=== PATIENT | female | born 1930 | race Caucasian/White ===

== ENCOUNTER 2017-03-30 16:49 | Emergency (ER) | payer MEDICARE, BC ==
[2017-03-30 18:08] VITALS: BP 116/55
--- NOTE | 2017-03-30 18:59 | EDM.PDOC ---
ED HPI GENERAL MEDICAL PROBLEM - General Chief Complaint: Lower Extremity Injury/Pain Stated Complaint: ANKLE GAVE OUT HURT FOOT Time Seen by Provider: 03/30/17 18:35 Source of Information: Reports: Patient History Limitations: Reports: No Limitations - History of Present Illness INITIAL COMMENTS - FREE TEXT/NARRATIVE: Rhona presents today with complaints of right foot pain. She states she was walking down some steps, thought she was stepping down onto another step and she was not. Her foot twisted and she fell. Onset: Today, Sudden - Related Data Allergies Allergy/AdvReac Type Severity Reaction Status Date / Time colesevelam HCl Allergy Muscle Verified 09/23/13 09:04 [From WelChol] Aches niacin Allergy Burning Verified 03/16/13 08:57 simvastatin AdvReac Muscle Verified 03/16/13 07:04 Aches Home Meds: Home Meds Aspirin 81 mg ORAL.INH DAILY 02/15/13 [History] Furosemide [Lasix] 40 mg PO DAILY 02/15/13 [History] Gabapentin [Neurontin] 600 mg PO TID 02/15/13 [History] Insulin Detemir [Levemir] 26 unit SUBCUT DAILY 02/15/13 [History] Psyllium Husk [Psyllium Fiber] 1 tab 02/15/13 [History] metFORMIN [Glucophage] 500 mg PO TIDM 02/15/13 [History] Fluticasone Propionate [Flovent HFA 44 mcg] 10.6 gm IH 03/13/13 [History] Zolpidem [Ambien CR] 6.25 mg PO BEDTIME PRN 03/13/13 [History] Ezetimibe [Zetia] 10 mg PO DAILY 03/16/13 [History] Insulin Aspart [NovoLOG] 09/23/13 [History] Past Medical History - Past Health History Medical/Surgical History: Denies Medical/Surgical History HEENT History: Reports: Cataract Endocrine/Metabolic History: Reports: Diabetes, Type II - Past Surgical History GI Surgical History: Reports: Appendectomy, Cholecystectomy Social & Family History - Tobacco Use Smoking Status *Q: Never Smoker Years of Tobacco use: 50 Used Tobacco, but Quit: Yes Month Tobacco Last Used: 22 YEARS AGO Second Hand Smoke Exposure: No - Alcohol Use Days Per Week of Alcohol Use: 0 Number of Drinks Per Day: 0 Total Drinks Per Week: 0 - Recreational Drug Use Recreational Drug Use: No - Living Situation & Occupation Living situation: Reports: , Alone Review of Systems - Review of Systems Review Of Systems: See Below Constitutional: Reports: No Symptoms Eyes: Reports: No Symptoms Ears: Reports: No Symptoms Nose: Reports: No Symptoms Mouth/Throat: Reports: No Symptoms Respiratory: Reports: No Symptoms Cardiovascular: Reports: No Symptoms GI/Abdominal: Reports: No Symptoms Musculoskeletal: Reports: Foot Pain Skin: Reports: Other (bilateral lower leg edema - chronic). Denies: Rash, Erythema, Wound, Lesions Neurological: Denies: Numbness, Syncope, Tingling, Weakness Psychiatric: Reports: No Symptoms ED EXAM, GENERAL - Physical Exam Exam: See Below Free Text/Narrative:: Rhona is an alert, oriented and pleasant 86 year old female who mis-stepped while going down stairs today, twisted her right foot/ankle and has pain. Bilateral lower extremity edema - which is chronic for her. She denies any other injury. Exam Limited By: No Limitations General Appearance: Alert, WD/WN, No Apparent Distress Eye Exam: Bilateral Eye: EOMI, Normal Inspection, PERRL Ears: Normal External Exam, Normal Canal, Hearing Grossly Normal, Normal TMs Ear Exam: Bilateral Ear: Auricle Normal, Canal Normal, TM normal Throat/Mouth: Normal Inspection, Normal Lips, Normal Oropharynx, Normal Voice, No Airway Compromise Head: Atraumatic, Normocephalic Neck: Normal Inspection, Supple, Non-Tender, Full Range of Motion. No: Lymphadenopathy (R), Lymphadenopathy (L) Respiratory/Chest: No Respiratory Distress, Lungs Clear, Normal Breath Sounds, No Accessory Muscle Use, Chest Non-Tender Cardiovascular: Normal Peripheral Pulses, Regular Rate, Rhythm, No Gallop, No Murmur, Other (Bilateral lower extremity edema 1 to 2+) Peripheral Pulses: 2+: Radial (L), Radial (R), Dorsalis Pedis (L), Dorsalis Pedis (R) Back Exam: Normal Inspection, Full Range of Motion. No: CVA Tenderness (R), CVA Tenderness (L) Extremities: Normal Capillary Refill, Other (Pain with palpation to right foot/ lateral. Bilateral lower leg edema 1-2+. No ecchymosis or deformity noted. ) Neurological: Alert, Oriented, CN II-XII Intact, Normal Cognition, Normal Reflexes, No Motor/Sensory Deficits Psychiatric: Normal Affect, Normal Mood Skin Exam: Warm, Dry, Intact, Normal Color, No Rash Course - Vital Signs Last Recorded V/S: Last Vital Signs Temp 36.7 C 03/30/17 18:11 Pulse 98 03/30/17 18:11 Resp 20 03/30/17 18:11 BP 116/55 L 03/30/17 18:11 Pulse Ox 99 03/30/17 18:11 - Orders/Labs/Meds Orders: Active Orders 24 hr Category Date Time Status Foot Comp Min 3V Rt [CR] Stat Exams 03/30/17 18:05 Taken - Radiology Interpretation Free Text/Narrative:: Closed mildly displaced spiral fractures of 4th 5th metatarsals of right foot. - Re-Assessments/Exams Free Text/Narrative Re-Assessment/Exam: 03/30/17 19:00 Patient declines acetaminophen or pain medication. Patient fitted with Cam-walking boot. 03/30/17 19:00 Departure - Departure Time of Disposition: 19:10 Disposition: Home, Self-Care 01 Condition: Fair Clinical Impression: Fracture of metatarsal of right foot, closed - Discharge Information Instructions: Cast or Splint Care, [id number] Referrals: Zully David PA [Primary Care Provider] - Forms: ED Department Discharge Additional Instructions: You have suffered a Closed mildly displaced spiral fractures of 4th 5th metatarsals of right foot. Keep the Cam-walking boot in place and on at all times. Use your walker for ambulation, minimal weight bearing to right foot. Keep your foot elevated as often as possible to decrease pain and swelling. Take acetaminophen as needed for pain, use ice for comfort. Follow up with Orthopedics next week for a recheck. Return for worsening, issues or concerns. - My Orders Last 24 Hours: My Active Orders 03/30/17 18:05 Foot Comp Min 3V Rt [CR] Stat - Assessment/Plan Last 24 Hours: My Active Orders 03/30/17 18:05 Foot Comp Min 3V Rt [CR] Stat Assessment:: Closed mildly displaced spiral fractures of 4th 5th metatarsals of right foot. Keep the Cam-walking boot in place and on at all times. Use walker for ambulation, minimal weight bearing to right foot. Keep foot elevated as often as possible to decrease pain and swelling. Take acetaminophen as needed for pain, use ice for comfort. Follow up with Orthopedics next week for a recheck. Return for worsening, issues or concerns. Plan: You have suffered a Closed mildly displaced spiral fractures of 4th 5th metatarsals of right foot. Keep the Cam-walking boot in place and on at all times. Use your walker for ambulation, minimal weight bearing to right foot. Keep your foot elevated as often as possible to decrease pain and swelling. Take acetaminophen as needed for pain, use ice for comfort. Follow up with Orthopedics next week for a recheck. Return for worsening, issues or concerns.
--- NOTE | 2017-04-01 10:16 | CR ---
Foot Comp Min 3V Rt INDICATION: twisted/pain FINDINGS: Acute, mildly displaced fractures through the mid and distal aspects of the fourth and fift h metatarsals. Mild degenerative changes. Accessory navicular. Accessory ossicle adjacent to the cubo id.
== END 2017-03-30 19:36 | disposition home or self-care (01) ==
LOC: JP.ED 16:49
DX: S92.341A Displaced fracture of fourth metatarsal bone, right foot, initial encounter for closed fracture (principal); S92.351A Displaced fracture of fifth metatarsal bone, right foot, initial encounter for closed fracture; E11.9 Type 2 diabetes mellitus without complications; Z90.49 Acquired absence of other specified parts of digestive tract; Z87.891 Personal history of nicotine dependence; Z79.4 Long term (current) use of insulin; Z79.82 Long term (current) use of aspirin; Z79.899 Other long term (current) drug therapy; Z88.8 Allergy status to other drugs, medicaments and biological substances; W10.8XXA Fall (on) (from) other stairs and steps, initial encounter
CPT/HCPCS: 73630-26-RT; 73630-RT; 99283; 99284

== ENCOUNTER 2019-02-28 23:30 | Emergency (ER) | payer MEDICARE, BC ==
--- NOTE | 2019-02-28 23:59 | EDM.PDOC ---
ED HPI GENERAL MEDICAL PROBLEM - General Chief Complaint: Lower Extremity Injury/Pain Stated Complaint: ROLLED RIGHT ANKLE Time Seen by Provider: 03/01/19 00:08 Source of Information: Reports: Patient, Old Records History Limitations: Reports: No Limitations - History of Present Illness INITIAL COMMENTS - FREE TEXT/NARRATIVE: 88 yo female rolled her R ankle inward about a hour ago. Has pain to the lateral R ankle. Here for evaluation. No tx prior to arrival. Onset: Today Onset Date: 03/01/19 Onset Time: 23:00 Duration: Hour(s): (1), Constant Location: Reports: Lower Extremity, Right Quality: Reports: Ache Severity: Moderate Improves with: Reports: Rest Worsens with: Reports: Movement Context: Reports: Trauma Associated Symptoms: Reports: No Other Symptoms Treatments [employer]TE[employer]CE [employer]: Reports: Other (see below) (none) - Related Data Allergies Allergy/AdvReac Type Severity Reaction Status Date / Time colesevelam HCl Allergy Muscle Verified 09/23/13 09:04 [From WelChol] Aches niacin Allergy Burning Verified 03/16/13 08:57 simvastatin AdvReac Muscle Verified 03/16/13 07:04 Aches Home Meds: Home Meds Aspirin 81 mg ORAL.INH DAILY 02/15/13 [History] Insulin Detemir [Levemir] 26 unit SUBCUT DAILY 02/15/13 [History] Insulin Aspart [NovoLOG] 1 unit SQ DAILY 09/23/13 [History] Allopurinol [Zyloprim] 100 mg PO DAILY 03/01/19 [History] Tamoxifen [Nolvadex] 20 mg PO DAILY 03/01/19 [History] Past Medical History - Past Health History Medical/Surgical History: Denies Medical/Surgical History HEENT History: Reports: Cataract Endocrine/Metabolic History: Reports: Diabetes, Type II - Past Surgical History GI Surgical History: Reports: Appendectomy, Cholecystectomy Social & Family History - Living Situation & Occupation Living situation: Reports: , Alone Review of Systems - Review of Systems Review Of Systems: See Below Constitutional: Reports: No Symptoms Musculoskeletal: Reports: Joint Pain (R lateral ankle), Joint Swelling (R lateral ankle) Skin: Reports: Bruising (R ant/lateral ankle) Neurological: Reports: No Symptoms ED EXAM, GENERAL - Physical Exam Exam: See Below General Appearance: Alert, WD/WN, No Apparent Distress Extremities: Pedal Edema (swelling and bruising R ant/lateral ankle.), Other ( Neg anterior drawer test.). No: Normal Inspection, Non-Tender Neurological: Alert, Oriented, CN II-XII Intact, Normal Cognition, No Motor/ Sensory Deficits Psychiatric: Normal Affect, Normal Mood Skin Exam: Warm, Dry, Intact, No Rash, Ecchymosis (R ant/lateral ankle) Course - Orders/Labs/Meds Orders: Active Orders 24 hr Category Date Time Status Ankle Min 3V Rt [CR] Stat Exams 02/28/19 23:35 Ordered Meds: Medications Discontinued Medications Generic Name Dose Route Start Last Admin Trade Name Freq PRN Reason Stop Dose Admin Hydrocodone Bitart/Acetaminophen 1 tab 03/01/19 00:07 [place] 325-5 Mg PO 03/01/19 00:08 ONETIME ONE Ibuprofen 400 mg 03/01/19 00:07 Motrin PO 03/01/19 00:08 ONETIME ONE - Radiology Interpretation Free Text/Narrative:: ankle [id number] Departure - Departure Time of Disposition: 00:20 Disposition: Home, Self-Care 01 Condition: Fair Clinical Impression: Right ankle sprain Qualifiers: Encounter type: initial encounter Involved ligament of ankle: anterior talofibular ligament Qualified Code(s): S93.491A - Sprain of other ligament of right ankle, initial encounter - Discharge Information *PRESCRIPTION DRUG MONITORING PROGRAM REVIEWED*: No *COPY OF PRESCRIPTION DRUG MONITORING REPORT IN PATIENT CHRISTINE: No Referrals: PCP,None [Primary Care Provider] - Forms: ED Department Discharge Additional Instructions: Elevate and ice to reduce swelling. Take ibuprofen 400 mg every 6 hrs with food. Add either acetaminophen or [place] for added pain relief. Wear some type of splint or boot for support until healed. F/U with your doctor as needed. - My Orders Last 24 Hours: My Active Orders 02/28/19 23:35 Ankle Min 3V Rt [CR] Stat - Assessment/Plan Last 24 Hours: My Active Orders 02/28/19 23:35 Ankle Min 3V Rt [CR] Stat
[2019-03-01] MEDS ORDERED: Ibuprofen 400 MG Tab PO ONE (00:07)
[2019-03-01] MEDS ORDERED: Acetaminophen/HYDROcodone 325-5 MG Tab PO ONE (00:07)
--- NOTE | 2019-03-01 00:20 | CRLCR ---
INDICATION: Trauma TECHNIQUE: Three views right ankle COMPARISON: None FINDINGS: Bones: Alignment is normal. No fractures or bone lesions. Joint spaces: Unremarkable. Soft tissues: Diffuse soft tissue edema. IMPRESSION: Diffuse soft tissue edema. Dictated by Ritchie Pop MD @ 03/01/2019 12:18:27 AM Dictated by: Ritchie Pop MD @ 03/01/2019 00:18:34 (Electronically Signed)
[2019-03-01 00:44] VITALS: BP 127/52; PULSE 93
== END 2019-03-01 00:45 | disposition home or self-care (01) ==
LOC: JP.ED 23:30
DX: S93.491A Sprain of other ligament of right ankle, initial encounter (principal); E11.9 Type 2 diabetes mellitus without complications; Z88.8 Allergy status to other drugs, medicaments and biological substances; Z79.82 Long term (current) use of aspirin; Z79.4 Long term (current) use of insulin; Z90.49 Acquired absence of other specified parts of digestive tract; X50.0XXA Overexertion from strenuous movement or load, initial encounter
CPT/HCPCS: 73610; 99283; A9270

== ENCOUNTER 2020-04-11 15:40 | Inpatient (IN) | payer MEDICARE, BC ==
[2020-04-11] MEDS ORDERED: Sodium Chloride 0.9% 1,000 ML IV SCH ×2 (17:00→20:41)
--- NOTE | 2020-04-11 17:04 | EDM.PDOC ---
ED HPI GENERAL MEDICAL PROBLEM - General Chief Complaint: General Stated Complaint: MEDICAL [facility] Time Seen by Provider: 04/11/20 16:55 Source of Information: Reports: Patient, Family History Limitations: Reports: No Limitations - History of Present Illness INITIAL COMMENTS - FREE TEXT/NARRATIVE: 89-year-old female who thinks she may have been exposed to Covid sometime the last 2 weeks, has had 2 weeks of persistent waxing and waning weakness, dizziness, and diarrhea. She also has some mild shortness of breath, no significant fever or chills. No pain. Today she got up and just felt so weak and dizzy that she was concerned she would not be able to stay home so called the ambulance. She arrived with just slightly normal O2 saturations at 92% on room air. She initially was given 1 L of supplement O2. Covid precautions were taken. Onset: Unknown/Unsure (Symptoms have been waxing and waning for at least 2 weeks) Associated Symptoms: Reports: Malaise, Weakness, Other (Diarrhea, she had 3 episodes of loose stools today) Back Pain Score (Numeric/FACES): 3 - Related Data Allergies Allergy/AdvReac Type Severity Reaction Status Date / Time niacin Allergy Burning Verified 04/11/20 15:43 colesevelam HCl AdvReac Muscle Verified 04/14/20 08:55 [From WelChol] Aches simvastatin AdvReac Muscle Verified 04/11/20 15:43 Aches Home Meds: Home Meds Aspirin 81 mg ORAL.INH DAILY 02/15/13 [History] Insulin Detemir [Levemir] 24 unit SUBCUT BEDTIME 02/15/13 [History] Insulin Aspart [NovoLOG] 12 unit SQ BID 09/23/13 [History] Tamoxifen [Nolvadex] 20 mg PO DAILY 03/01/19 [History] allopurinoL [Zyloprim] 200 mg PO DAILY 03/01/19 [History] Acetaminophen [Tylenol Extra Strength] 500 mg PO Q6H PRN 04/11/20 [History] Gabapentin [Neurontin] 100 mg PO BEDTIME 04/11/20 [History] Mv-Mn/Iron/Folic Acid/Herb 190 [Vitamin D3 Complete Caplet] 1 tab PO DAILY 04/11/20 [History] Past Medical History - Past Health History Medical/Surgical History: Denies Medical/Surgical History HEENT History: Reports: Cataract 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 Denies: Fever, Chills HEENT: Reports: No Symptoms Respiratory: Reports: Shortness of Breath (Mild intermittent shortness of breath with activity) Cardiovascular: Denies: Chest Pain, Palpitations GI/Abdominal: Reports: Diarrhea, Other (Patient has seen no blood in the diarr hea). Denies: Abdominal Pain, Hematochezia, Vomiting : Reports: No Symptoms Skin: Reports: No Symptoms Neurological: Reports: Dizziness, Weakness Psychiatric: Reports: No Symptoms ED EXAM, GENERAL - Physical Exam Exam: See Below Exam Limited By: No Limitations General Appearance: Alert, No Apparent Distress Eye Exam: Bilateral Eye: Normal Inspection Head: Atraumatic Respiratory/Chest: No Respiratory Distress, Other (A few scattered expiratory wheezes are heard diffusely, scattered basilar rales) Cardiovascular: Regular Rate, Rhythm GI/Abdominal: Soft, Non-Tender Extremities: Other (1+ symmetric pitting edema of the lower extremities) Neurological: Alert, Oriented Psychiatric: Normal Affect, Normal Mood Skin Exam: Warm, Dry Course - Vital Signs Last Recorded V/S: Last Vital Signs Temp 97.5 F 04/15/20 02:44 Pulse 72 04/15/20 02:44 Resp 20 04/15/20 02:44 BP 142/67 H 04/15/20 02:44 Pulse Ox 94 L 04/15/20 07:21 - Orders/Labs/Meds Orders: Medication Orders Acetaminophen (Tylenol) 650 mg PO Q4H PRN PRN Reason: Pain (Mild 1-3)/fever Last Admin: 04/13/20 21:25 Dose: 650 mg Documented by: Admin: 04/12/20 21:08 Dose: 650 mg Documented by: NABILAOSTNatali Albuterol (Proventil Neb Soln) 2.5 mg NEB Q4H PRN PRN Reason: Shortness Of Breath/wheezing Allopurinol (Zyloprim) 200 mg PO DAILY [facility] Last Admin: 04/14/20 08:51 Dose: 200 mg Documented by: Admin: 04/13/20 08:03 Dose: 200 mg Documented by: Admin: 04/12/20 09:44 Dose: 200 mg Documented by: ABDIRAHMAN Aspirin (Aspirin) 81 mg PO DAILY [facility] Last Admin: 04/14/20 08:50 Dose: 81 mg Documented by: Admin: 04/13/20 08:03 Dose: 81 mg Documented by: Admin: 04/12/20 09:45 Dose: 81 mg Documented by: ABDIRAHMAN Benzocaine/Menthol (Cepacol Sore Throat) 1 lozenge MUCMEM ASDIRECTED PRN PRN Reason: SORE THROAT Last Admin: 04/12/20 21:30 Dose: 1 lozenge Documented by: MATHEW Dexamethasone (Dexamethasone) 6 mg IVPUSH Q24H [facility] Admin: 04/14/20 19:46 Dose: 6 mg Documented by: Admin: 04/13/20 21:23 Dose: 6 mg Documented by: Admin: 04/12/20 20:59 Dose: 6 mg Documented by: MATHEW Dextrose (Glutose 15) 15 gm PO ONETIME PRN PRN Reason: Hypoglycemia Dextrose/Water (Dextrose 50% In Water) 50 ml IV ONETIME PRN PRN Reason: Hypoglycemia Enoxaparin Sodium (Lovenox) 30 mg SUBCUT BEDTIME [facility] Admin: 04/14/20 21:48 Dose: 30 mg Documented by: Admin: 04/13/20 21:29 Dose: 30 mg Documented by: Admin: 04/12/20 20:59 Dose: 30 mg Documented by: MATHEW Gabapentin (Neurontin) 100 mg PO BEDTIME [facility] Last Admin: 04/14/20 21:48 Dose: 100 mg Documented by: Admin: 04/13/20 21:25 Dose: 100 mg Documented by: Admin: 04/12/20 20:59 Dose: 100 mg Documented by: Admin: 04/11/20 21:39 Dose: 100 mg Documented by: MATHEW Insulin Glargine (Lantus Solostar) 24 units SUBCUT BEDTIME NABILA Last Admin: 04/14/20 21:49 Dose: 24 units Documented by: SIRI Cosigned by: MILLY Admin: 04/13/20 21:26 Dose: 24 units Documented by: RUFUS Cosigned by: MLILY Admin: 04/12/20 21:10 Dose: 24 units Documented by: MATHEW Cosigned by: MIHIR Insulin Human Lispro (Humalog) 0 unit SUBCUT QIDACANDBED NABILA; Protocol Last Admin: 04/14/20 21:49 Dose: 4 units Documented by: SIRI Cosigned by: MILLY Admin: 04/14/20 16:56 Dose: 4 units Documented by: ABDIRAHMAN Cosigned by: SMITHA Admin: 04/14/20 11:58 Dose: 6 units Documented by: ABDIRAHMAN Cosigned by: VIOLA Admin: 04/14/20 08:51 Dose: 4 units Documented by: ABDIRAHMAN Cosigned by: VIOLA Admin: 04/13/20 21:26 Dose: 4 units Documented by: RUFUS Cosigned by: MILLY Admin: 04/13/20 17:03 Dose: 4 units Documented by: ABDIRAHMAN Cosigned by: MARIA E Admin: 04/13/20 12:56 Dose: 6 units Documented by: ABDIRAHMAN Cosigned by: SHELLEY Admin: 04/13/20 08:04 Dose: 4 units Documented by: ABDIRAHMAN Cosigned by: MARIA E Admin: 04/12/20 21:11 Dose: 6 units Documented by: MATHEW Cosigned by: MIHIR Admin: 04/12/20 16:46 Dose: 6 units Documented by: ABDIRAHMAN Cosigned by: AKIN Admin: 04/12/20 11:54 Dose: 8 units Documented by: ABDIRAHMAN Cosigned by: VIOLA Admin: 04/12/20 09:42 Dose: 4 units Documented by: ABDIRAHMAN Cosigned by: TONA Admin: 04/11/20 21:38 Dose: Not Given Documented by: MATHEW Melatonin (Melatonin) 9 mg PO BEDTIME PRN PRN Reason: Insomnia Last Admin: 04/14/20 21:55 Dose: 9 mg Documented by: Admin: 04/13/20 21:25 Dose: 9 mg Documented by: Admin: 04/12/20 23:20 Dose: 9 mg Documented by: MATHEW Ondansetron HCl (Zofran) 4 mg IV Q4H PRN PRN Reason: Nausea/Vomiting Polyethylene Glycol (Miralax) 17 gm PO DAILY PRN PRN Reason: Constipation Sodium Chloride (Saline Flush) 10 ml FLUSH ASDIRECTED PRN PRN Reason: Keep Vein Open Tamoxifen Citrate (Nolvadex) 20 mg PO DAILY NABILA Guo Admin: 04/14/20 08:50 Dose: 20 mg Documented by: Admin: 04/13/20 08:03 Dose: 20 mg Documented by: Admin: 04/12/20 09:45 Dose: 20 mg Documented by: ABDIRAHMAN Labs: Laboratory Tests 04/11/20 04/11/20 04/11/20 Range/Units 16:12 16:12 16:23 WBC 5.5 (4.5-11.0) K/uL RBC 3.65 (3.30-5.50) M/uL Hgb 11.3 L (12.0-15.0) g/dL Hct 36.4 (36.0-48.0) % MCV 100 H (80-98) fL MCH 31 (27-31) pg MCHC 31 L (32-36) % Plt Count 123 L (150-400) K/uL Neut % (Auto) 72 H (36-66) % Lymph % (Auto) 16 L (24-44) % [place] % (Auto) 12 H (2-6) % Eos % (Auto) 0 L (2-4) % Baso % (Auto) 0 (0-1) % Sodium 140 (140-148) mmol/L Potassium 4.6 (3.6-5.2) mmol/L Chloride 109 H (100-108) mmol/L Carbon Dioxide 24 (21-32) mmol/L Anion Gap 11.6 (5.0-14.0) mmol/L BUN 26 H (7-18) mg/dL Creatinine 1.9 H (0.6-1.0) mg/dL Est Cr Clr Drug Dosing 18.79 mL/min Estimated GFR (MDRD) 25 L (>60) Glucose 102 (74-106) mg/dL Calcium 8.3 L (8.5-10.1) mg/dL SARS-CoV-2 RNA (HUMPHREY) (NEGATIVE) Blood Type O POSITIVE 04/11/20 Range/Units 16:31 WBC (4.5-11.0) K/uL RBC (3.30-5.50) M/uL Hgb (12.0-15.0) g/dL Hct (36.0-48.0) % MCV (80-98) fL MCH (27-31) pg MCHC (32-36) % Plt Count (150-400) K/uL Neut % (Auto) (36-66) % Lymph % (Auto) (24-44) % [place] % (Auto) (2-6) % Eos % (Auto) (2-4) % Baso % (Auto) (0-1) % Sodium (140-148) mmol/L Potassium (3.6-5.2) mmol/L Chloride (100-108) mmol/L Carbon Dioxide (21-32) mmol/L Anion Gap (5.0-14.0) mmol/L BUN (7-18) mg/dL Creatinine (0.6-1.0) mg/dL Est Cr Clr Drug Dosing mL/min Estimated GFR (MDRD) (>60) Glucose (74-106) mg/dL Calcium (8.5-10.1) mg/dL SARS-CoV-2 RNA (HUMPHREY) Positive H (NEGATIVE) Blood Type Meds: Medications Generic Name Dose Route Start Last Admin Trade Name Freq PRN Reason Stop Dose Admin Acetaminophen 650 mg 04/11/20 20:41 04/13/20 21:25 Tylenol PO 650 mg Q4H PRN Administration Pain (Mild 1-3)/fever Albuterol 2.5 mg 04/11/20 20:41 Proventil Neb Soln NEB Q4H PRN Shortness Of Breath/wheezing Allopurinol 200 mg 04/12/20 09:00 04/14/20 08:51 Zyloprim PO 200 mg DAILY NABILA Administration Aspirin 81 mg 04/12/20 09:00 04/14/20 08:50 Aspirin PO 81 mg DAILY NABILA Administration Benzocaine/Menthol 1 lozenge 04/12/20 21:29 04/12/20 21:30 Cepacol Sore Throat MUCMEM 1 lozenge ASDIRECTED PRN Administration SORE THROAT Dexamethasone 6 mg 04/12/20 19:00 04/14/20 19:46 Dexamethasone IVPUSH 6 mg Q24H NABILA Administration Dextrose 15 gm 04/11/20 20:41 Glutose 15 PO ONETIME PRN Hypoglycemia Dextrose/Water 50 ml 04/11/20 20:41 Dextrose 50% In Water IV ONETIME PRN Hypoglycemia Enoxaparin Sodium 30 mg 04/12/20 21:00 04/14/20 21:48 Lovenox SUBCUT 30 mg BEDTIME NABILA Administration Gabapentin 100 mg 04/11/20 21:00 04/14/20 21:48 Neurontin PO 100 mg BEDTIME NABILA Administration Insulin Glargine 24 units 04/12/20 21:00 04/14/20 21:49 Lantus Solostar SUBCUT 24 units BEDTIME NABILA Administration Insulin Human Lispro 0 unit 04/11/20 20:41 04/14/20 21:49 Humalog SUBCUT 4 units QIDACANDBED NABILA Administration Protocol Melatonin 9 mg 04/12/20 23:06 04/14/20 21:55 Melatonin PO 9 mg BEDTIME PRN Administration Insomnia Ondansetron HCl 4 mg 04/11/20 20:41 Zofran IV Q4H PRN Nausea/Vomiting Polyethylene Glycol 17 gm 04/11/20 20:41 Miralax PO DAILY PRN Constipation Sodium Chloride 10 ml 04/11/20 20:41 Saline Flush FLUSH ASDIRECTED PRN Keep Vein Open Tamoxifen Citrate 20 mg 04/12/20 09:00 04/14/20 08:50 Nolvadex PO 20 mg DAILY NABILA Administration Discontinued Medications Generic Name Dose Route Start Last Admin Trade Name Freq PRN Reason Stop Dose Admin Acetaminophen 650 mg 04/13/20 16:30 04/13/20 17:02 Tylenol PO 04/13/20 16:31 650 mg ONCALL ONE Administration Acetaminophen 650 mg 04/14/20 14:30 04/14/20 15:56 Tylenol PO 04/14/20 14:31 650 mg ONCALL ONE Administration Benzocaine/Menthol 1 lozenge 04/13/20 09:00 Cepacol Sore Throat MUCMEM ASDIRECTED PRN SORE THROAT Benzocaine/Menthol Confirm 04/12/20 21:31 04/12/20 22:57 Cepacol Sore Throat Administered 04/12/20 21:32 Not Given Dose 1 lozenge .ROUTE .STK-MED ONE Dexamethasone 6 mg 04/11/20 17:49 04/11/20 18:08 Dexamethasone IVPUSH 04/11/20 17:50 6 mg ONETIME ONE Administration Dexamethasone Confirm 04/11/20 18:00 04/11/20 18:11 Dexamethasone Administered 04/11/20 18:01 Not Given Dose 4 mg .ROUTE .STK-MED ONE Diphenhydramine HCl 25 mg 04/13/20 16:30 04/13/20 17:02 Benadryl IVPUSH 04/13/20 16:31 25 mg ONCALL ONE Administration Diphenhydramine HCl 25 mg 04/14/20 14:30 04/14/20 15:56 Benadryl IVPUSH 04/14/20 14:31 25 mg ONCALL ONE Administration Enoxaparin Sodium 30 mg 04/11/20 20:41 04/11/20 21:39 Lovenox SUBCUT 30 mg DAILY NABILA Administration Sodium Chloride 1,000 mls @ 1,000 mls/hr 04/11/20 17:00 04/11/20 17:14 Normal Saline IV 1,000 mls/hr ASDIRECTED NABILA Administration Sodium Chloride 1,000 mls @ 50 mls/hr 04/11/20 20:41 04/11/20 22:32 Normal Saline IV 50 mls/hr ASDIRECTED NABILA Administration Sodium Chloride 250 mls @ 20 mls/hr 04/13/20 16:15 04/13/20 17:55 Normal Saline IV 20 mls/hr ASDIRECTED NABILA Administration Insulin Glargine 26 units 04/11/20 21:00 04/11/20 23:35 Lantus Solostar SUBCUT Not Given BEDTIME NABILA Insulin Glargine 24 units 04/11/20 21:15 04/11/20 22:33 Lantus Solostar SUBCUT 24 units BEDTIME NABILA Administration - Re-Assessments/Exams Free Text/Narrative Re-Assessment/Exam: 04/11/20 17:34 A chest x-ray was obtained which showed no significant infiltrates or effusions. CBC BMP and Covid testing was obtained. She was continued on 0.5 L of O2 by nasal cannula which kept her in the mid 90s for O2 saturations. 04/11/20 17:34 White count is normal, hemoglobin 11.3 04/11/20 17:34 Creatinine 1.9, GFR only 25. This was initially concerning but they were consistent with levels checked at the clinic almost a year ago. 1 L of IV normal saline was initiated and the Covid test returned positive. We are checking to see if we can find an inpatient Covid bed for her to treat her for weakness, dyspnea, and dehydration. 04/11/20 17:49 She will be admitted here, after talking with the hospitalist service 6 mg of IV Decadron was given. Departure - Departure Time of Disposition: 18:40 Disposition: Admitted As Inpatient 66 Clinical Impression: COVID-19, Weakness Diarrhea Qualifiers: Diarrhea type: presumed infectious Qualified Code(s): R19.7 - Diarrhea, unsp ecified - Discharge Information Sepsis Event Note (ED) - Evaluation Sepsis Screening Result: No Definite Risk
[2020-04-11] MEDS ORDERED: Dexamethasone 4 MG/ML SDV IVPUSH ONE (17:49)
[2020-04-11] MEDS ORDERED: Dexamethasone 4 MG/ML SDV ONE (18:00)
--- NOTE | 2020-04-11 19:00 | PCM.HP.2 ---
H&P History of Present Illness - General Date of Service: 04/11/20 Admit Problem/Dx: Admission Diagnosis/Problem Admission Diagnosis/Problem Dyspnea Source of Information: Patient, Provider, RN Notes Reviewed History Limitations: Reports: No Limitations - History of Present Illness Initial Comments - Free Text/Narative: Ms. Barnett is an 89-year-old woman who was admitted through the emergency department with severe weakness, shortness of breath, cough, diarrhea, and nausea, secondary to COVID-19. She has not felt well over the past 10 days and does think that she has a recent exposure to COVID-19. Over the past few days symptoms have become much worse and she has been extremely weak and developed shortness of breath with minimal exertion. She was brought into the emergency department for further evaluation. Chest x-ray shows evidence of hazy bilateral infiltrates. White blood cell count is within normal ranges and COVID-19 testing is positive. She is found to be mildly hypoxic on room air on initial presentation. She has received 1 dose of IV Decadron while in the emergency department. - Related Data Allergies/Adverse Reactions: Allergies Allergy/AdvReac Type Severity Reaction Status Date / Time colesevelam HCl Allergy Muscle Verified 04/11/20 15:43 [From WelChol] Aches niacin Allergy Burning Verified 04/11/20 15:43 simvastatin AdvReac Muscle Verified 04/11/20 15:43 Aches Home Medications: Home Meds Aspirin 81 mg ORAL.INH DAILY 02/15/13 [History] Insulin Detemir [Levemir] 26 unit SUBCUT BEDTIME 02/15/13 [History] Insulin Aspart [NovoLOG] 12 unit SQ BID 09/23/13 [History] Tamoxifen [Nolvadex] 20 mg PO DAILY 03/01/19 [History] allopurinoL [Zyloprim] 200 mg PO DAILY 03/01/19 [History] Acetaminophen [Tylenol Extra Strength] 500 mg PO Q6H PRN 04/11/20 [History] Gabapentin [Neurontin] 100 mg PO BEDTIME 04/11/20 [History] Mv-Mn/Iron/Folic Acid/Herb 190 [Vitamin D3 Complete Caplet] 1 tab PO DAILY 04/11/20 [History] Past Medical History - Past Health History Medical/Surgical History: Denies Medical/Surgical History HEENT History: Reports: Cataract 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: Endocrine/Metabolic History: Reports: Diabetes, Type II - Past Surgical History GI Surgical History: Reports: Appendectomy, Cholecystectomy Social & Family History - Tobacco Use Tobacco Use Status *Q: Former Tobacco User Used Tobacco, but Quit: Yes Month/Year Tobacco Last Used: 28 - Caffeine Use Caffeine Use: Reports: Coffee - Living Situation & Occupation Living situation: Reports: , Alone H&P Review of Systems - Review of Systems: Review Of Systems: See Below General: Reports: Fever, Chills, Malaise, Weakness, Decreased Appetite HEENT: Reports: No Symptoms Pulmonary: Reports: Shortness of Breath, Cough. Denies: Wheezing, Pleuritic Chest Pain, Sputum, Hemoptysis Cardiovascular: Reports: Dyspnea on Exertion. Denies: Chest Pain, Palpitations, Orthopnea, PND, Edema, Lightheadedness Gastrointestinal: Reports: No Symptoms Genitourinary: Reports: No Symptoms Musculoskeletal: Reports: Muscle Pain Skin: Reports: No Symptoms Psychiatric: Reports: No Symptoms Neurological: Reports: No Symptoms Hematologic/Lymphatic: Reports: No Symptoms Immunologic: Reports: No Symptoms Exam - Exam Exam: See Below - Vital Signs Vital Signs: Last Vital Signs Temp 98.9 F 04/11/20 15:42 Pulse 81 04/11/20 18:00 Resp 20 04/11/20 15:42 BP 143/59 H 04/11/20 18:00 Pulse Ox 94 L 04/11/20 18:00 Weight: 172 lb - Exam Quality Assessment: Supplemental Oxygen, DVT Prophylaxis General: Alert, Oriented, Cooperative, Moderate Distress HEENT: Conjunctiva Clear, Hearing Intact, Normal Nasal Septum, Posterior Pharynx Clear, Pupils Equal. No: Mucosa Moist & [place] Neck: Supple, Trachea Midline, +2 Carotid Pulse wo Bruit Lungs: Clear to Auscultation, Rales. No: Crackles, Rhonchi, Wheezing Cardiovascular: Regular Rate, Regular Rhythm, Normal S1, Normal S2 GI/Abdominal Exam: Soft, Non-Tender, No Organomegaly, No Distention Extremities: Non-Tender, No Pedal Edema Skin: Warm, Dry, Intact Neurological: Cranial Nerves Intact, Strength Equal Bilateral, Normal Speech, Normal Tone, Sensation Intact. No: Focal Deficit Neuro Extensive - Mental Status: Alert, Oriented x3, Normal Mood/Affect, Normal Cognition, Memory Intact - Patient Data Lab Results Last 24 hrs: Laboratory Results - last 24 hr 04/11/20 04/11/20 04/11/20 Range/Units 16:12 16:12 16:31 WBC 5.5 (4.5-11.0) K/uL RBC 3.65 (3.30-5.50) M/uL Hgb 11.3 L (12.0-15.0) g/dL Hct 36.4 (36.0-48.0) % MCV 100 H (80-98) fL MCH 31 (27-31) pg MCHC 31 L (32-36) % Plt Count 123 L (150-400) K/uL Neut % (Auto) 72 H (36-66) % Lymph % (Auto) 16 L (24-44) % [place] % (Auto) 12 H (2-6) % Eos % (Auto) 0 L (2-4) % Baso % (Auto) 0 (0-1) % Sodium 140 (140-148) mmol/L Potassium 4.6 (3.6-5.2) mmol/L Chloride 109 H (100-108) mmol/L Carbon Dioxide 24 (21-32) mmol/L Anion Gap 11.6 (5.0-14.0) mmol/L BUN 26 H (7-18) mg/dL Creatinine 1.9 H (0.6-1.0) mg/dL Est Cr Clr Drug Dosing 18.79 mL/min Estimated GFR (MDRD) 25 L (>60) Glucose 102 (74-106) mg/dL Calcium 8.3 L (8.5-10.1) mg/dL SARS-CoV-2 RNA (HUMPHREY) Positive H (NEGATIVE) Result Diagrams: 04/11/20 16:12 04/11/20 16:12 Sepsis Event Note - Evaluation Sepsis Screening Result: No Definite Risk - Focused Exam Vital Signs: Vital Signs Temp Pulse Resp BP Pulse Ox 04/11/20 18:00 81 143/59 H 94 L 04/11/20 17:10 79 129/51 L 95 04/11/20 15:42 98.9 F 89 20 166/57 H 92 L *Q Meaningful Use (ADM) - VTE Risk Assess *Q Each Risk Factor Represents 1 Point: Obesity ( BMI > 25 kg/m2), Serious lung disease including pneumonia Total Score 1 Point Risk Factors: 2 Each Risk Factor Represents 2 Points: None Total Score 2 Point Risk Factors: 0 Each Risk Factor Represents 3 Points: Age 75 Years or Greater Total Score 3 Point Risk Factors: 3 Each Risk Factor Represents 5 Points: None Total Score 5 Point Risk Factors: 0 Venous Thromboembolism Risk Factor Score *Q: 5 Problem List Initiated/Reviewed/Updated: Yes Orders Last 24hrs: Active Orders 24 hr Category Date Time Status Patient Status Manage Transfer [TRANSFER] Routine ADT 04/11/20 18:52 Ordered Chest 1V Frontal [CR] Stat Exams 04/11/20 16:12 Taken Sodium Chloride 0.9% [Normal Saline] 1,000 ml Med 04/11/20 17:00 Active IV ASDIRECTED Resuscitation Status Routine Resus Stat 04/11/20 18:54 Ordered Medication Orders Sodium Chloride (Normal Saline) 1,000 mls @ 1,000 mls/hr IV ASDIRECTED NABILA Last Admin: 04/11/20 17:14 Dose: 1,000 mls/hr Documented by: CYNDEE Assessment/Plan Comment:: ASSESSMENT AND PLAN BILATERAL PNEUMONIA SECONDARY TO [id number] significantly worse over the past few days with shortness of breath and profound weakness. Evidence of infiltrates on chest x-ray and hypoxic on evaluation. She is not a candidate for remdesivir because of her renal function. -Decadron 6 mg IV daily -Convalescent plasma when available -Supportive care, she refuses prone ventilation -Cautious IV fluids for hydration, reassess in a.m. HYPOXIA-secondary to pneumonia and COVID-19 -Supplemental oxygen as needed -Nebulizer therapy as needed CHRONIC KIDNEY DISEASE STAGE IV-it appears that her current renal function is at baseline -Closely monitor urine output and renal function TYPE 2 DIABETES MELLITUS -Continue usual dose of long-acting insulin -4 times daily glucometers -Moderate dose sliding scale Humalog MAINTENANCE ISSUES -DVT prophylaxis; Lovenox 30 mg subcu daily -GI prophylaxis; not indicated -Figueroa catheter; not indicated -Nutrition; consistent carbohydrate diet -Nicotine dependence; not required CODE STATUS-FULL CODE; I discussed this with the patient when she was seen in the emergency department and she is adamant about aggressive care including intubation if needed ADMISSION STATUS-patient will be admitted to inpatient status, expect at least a 2 night hospital stay for evaluation and management of problems as outlined above. At the time of this admission I do not reasonably expected evaluation and management of this problem will require more than a 96 hour hospital stay. DISPOSITION-anticipate discharge to home after the hospital stay. PRIMARY CARE PROVIDER- - Mortality Measure Prognosis:: Poor
[2020-04-11] MEDS ORDERED: 50% Dextrose in Water 50 ML Syringe IV PRN (20:41)
[2020-04-11] MEDS ORDERED: Ondansetron 4 MG/2 ML SDV IV PRN (20:41)
[2020-04-11] MEDS ORDERED: Glucose Gel 15 GM in 37.5 GM Tube PO PRN (20:41)
[2020-04-11] MEDS ORDERED: Sodium Chloride 0.9% 10 ML Syringe FLUSH PRN (20:41)
[2020-04-11] MEDS ORDERED: Albuterol 0.083% 2.5 MG/3 ML Neb Soln NEB PRN (20:41)
[2020-04-11] MEDS ORDERED: Enoxaparin 30 MG/0.3 ML Syringe SUBCUT SCH (20:41)
[2020-04-11] MEDS ORDERED: Insulin Glargine,Human Rec. Analog 100 Units/ML 3 ML Pen SUBCUT SCH ×2 (21:00→21:15)
[2020-04-11] MEDS: Insulin Lispro 100 Unit/ML 3 ML KwikPen SUBCUT SCH (21:38)
[2020-04-11] MEDS: Gabapentin 100 MG Cap PO SCH (21:39)
--- NOTE | 2020-04-12 09:08 | CR ---
CHEST: Portable 04/11/2020 at 4:50 PM CLINICAL HISTORY:Wheezing and dyspnea COMPARISON:CT 2017 FINDINGS: Heart is mildly enlarged. Pulmonary vascularity is normal. There are atherosclerotic changes in the aorta.. There is diffuse interstitial prominence. Some of this chronic. There is also some superimposed patchy opacities in the mid and lower lung m[place]ott bilaterally felt to represent infiltrate. IMPRESSION: Patchy densities bilaterally are suspect for pneumonic infiltrates. This is superimposed over some chronic interstitial changes.
[2020-04-12] MEDS: Insulin Lispro 100 Unit/ML 3 ML KwikPen SUBCUT SCH ×4 (09:42→21:11)
[2020-04-12] MEDS: Allopurinol 100 MG Tab PO SCH (09:44)
[2020-04-12] MEDS: Aspirin 81 MG Tab.Chew PO SCH (09:45)
[2020-04-12] MEDS: Tamoxifen 10 MG Tab PO SCH (09:45)
--- NOTE | 2020-04-12 12:42 | PCM.PN ---
- General Info Date of Service: 04/12/20 Subjective Update: Ms. Barnett admitted yesterday afternoon with bilateral pneumonia and hypoxia secondary to COVID-19. Hypoxia has worsened somewhat since admission although she overtly denies shortness of breath. Saturations are currently adequate on 3 L of oxygen via nasal cannula. She has not had significant temperature elevation and has remained hemodynamically stable. She is unable to cooperate with prone ventilation. Functional Status: Reports: Tolerating Diet, Ambulating, Urinating - Review of Systems General: Reports: Weakness, Fatigue. Denies: Fever, Chills Pulmonary: Reports: Shortness of Breath, Cough. Denies: Pleuritic Chest Pain, Sputum, Hemoptysis, Wheezing Cardiovascular: Reports: Dyspnea on Exertion. Denies: Chest Pain, Palpitations, Orthopnea, PND, Edema, Lightheadedness Gastrointestinal: Reports: No Symptoms. Denies: Diarrhea, Nausea, Vomiting - Patient Data Vitals - Most Recent: Last Vital Signs Temp 98.4 F 04/12/20 12:15 Pulse 72 04/12/20 12:15 Resp 20 04/12/20 12:15 BP 131/50 L 04/12/20 12:15 Pulse Ox 95 04/12/20 12:15 Weight - Most Recent: 172 lb I&O - Last 24 Hours: Intake & Output 04/11/20 04/12/20 04/12/20 22:59 06:59 14:59 Intake Total 200 350 0 Output Total 500 Balance 200 -150 0 Lab Results Last 24 Hours: Laboratory Results - last 24 hr 04/11/20 04/11/20 04/11/20 Range/Units 16:12 16:12 16:23 WBC 5.5 (4.5-11.0) K/uL RBC 3.65 (3.30-5.50) M/uL Hgb 11.3 L (12.0-15.0) g/dL Hct 36.4 (36.0-48.0) % MCV 100 H (80-98) fL MCH 31 (27-31) pg MCHC 31 L (32-36) % Plt Count 123 L (150-400) K/uL Neut % (Auto) 72 H (36-66) % Lymph % (Auto) 16 L (24-44) % [place] % (Auto) 12 H (2-6) % Eos % (Auto) 0 L (2-4) % Baso % (Auto) 0 (0-1) % Sodium 140 (140-148) mmol/L Potassium 4.6 (3.6-5.2) mmol/L Chloride 109 H (100-108) mmol/L Carbon Dioxide 24 (21-32) mmol/L Anion Gap 11.6 (5.0-14.0) mmol/L BUN 26 H (7-18) mg/dL Creatinine 1.9 H (0.6-1.0) mg/dL Est Cr Clr Drug Dosing 18.79 mL/min Estimated GFR (MDRD) 25 L (>60) Glucose 102 (74-106) mg/dL POC Glucose (74-106) MG/DL Calcium 8.3 L (8.5-10.1) mg/dL Total Bilirubin (0.2-1.0) mg/dL AST (15-37) U/L ALT (12-78) U/L Alkaline Phosphatase (46-116) U/L C-Reactive Protein (0.0-0.3) mg/dL Total Protein (6.4-8.2) g/dL Albumin (3.4-5.0) g/dL Globulin (2.3-3.5) g/dL Albumin/Globulin Ratio (1.2-2.2) SARS-CoV-2 RNA ([facility]) (NEGATIVE) Blood Type O POSITIVE 04/11/20 04/11/20 04/12/20 Range/Units 16:31 21:00 05:50 WBC (4.5-11.0) K/uL RBC (3.30-5.50) M/uL Hgb (12.0-15.0) g/dL Hct (36.0-48.0) % MCV (80-98) fL MCH (27-31) pg MCHC (32-36) % Plt Count (150-400) K/uL Neut % (Auto) (36-66) % Lymph % (Auto) (24-44) % [place] % (Auto) (2-6) % Eos % (Auto) (2-4) % Baso % (Auto) (0-1) % Sodium 140 (140-148) mmol/L Potassium 4.9 (3.6-5.2) mmol/L Chloride 110 H (100-108) mmol/L Carbon Dioxide 22 (21-32) mmol/L Anion Gap 12.9 (5.0-14.0) mmol/L BUN 26 H (7-18) mg/dL Creatinine 1.7 H (0.6-1.0) mg/dL Est Cr Clr Drug Dosing 21.00 mL/min Estimated GFR (MDRD) 28 L (>60) Glucose 275 H (74-106) mg/dL POC Glucose 134 H (74-106) MG/DL Calcium 7.9 L (8.5-10.1) mg/dL Total Bilirubin 0.3 (0.2-1.0) mg/dL AST 64 H (15-37) U/L ALT 27 (12-78) U/L Alkaline Phosphatase 55 (46-116) U/L C-Reactive Protein 5.12 H (0.0-0.3) mg/dL Total Protein 5.4 L (6.4-8.2) g/dL Albumin 1.9 L (3.4-5.0) g/dL Globulin 3.5 (2.3-3.5) g/dL Albumin/Globulin Ratio 0.5 L (1.2-2.2) SARS-CoV-2 RNA ([facility]) Positive H (NEGATIVE) Blood Type 04/12/20 04/12/20 04/12/20 Range/Units 06:00 07:38 11:30 WBC 3.0 L (4.5-11.0) K/uL RBC 3.37 (3.30-5.50) M/uL Hgb 10.4 L (12.0-15.0) g/dL Hct 33.8 L (36.0-48.0) % MCV 100 H (80-98) fL MCH 31 (27-31) pg MCHC 31 L (32-36) % Plt Count 117 L (150-400) K/uL Neut % (Auto) 71 H (36-66) % Lymph % (Auto) 22 L (24-44) % [place] % (Auto) 6 (2-6) % Eos % (Auto) 0 L (2-4) % Baso % (Auto) 0 (0-1) % Sodium (140-148) mmol/L Potassium (3.6-5.2) mmol/L Chloride (100-108) mmol/L Carbon Dioxide (21-32) mmol/L Anion Gap (5.0-14.0) mmol/L BUN (7-18) mg/dL Creatinine (0.6-1.0) mg/dL Est Cr Clr Drug Dosing mL/min Estimated GFR (MDRD) (>60) Glucose (74-106) mg/dL POC Glucose 229 H 321 H (74-106) MG/DL Calcium (8.5-10.1) mg/dL Total Bilirubin (0.2-1.0) mg/dL AST (15-37) U/L ALT (12-78) U/L Alkaline Phosphatase (46-116) U/L C-Reactive Protein (0.0-0.3) mg/dL Total Protein (6.4-8.2) g/dL Albumin (3.4-5.0) g/dL Globulin (2.3-3.5) g/dL Albumin/Globulin Ratio (1.2-2.2) SARS-CoV-2 RNA ([facility]) (NEGATIVE) Blood Type Med Orders - Current: Current Medications Acetaminophen (Tylenol) 650 mg PO Q4H PRN PRN Reason: Pain (Mild 1-3)/fever Albuterol (Proventil Neb Soln) 2.5 mg NEB Q4H PRN PRN Reason: Shortness Of Breath/wheezing Allopurinol (Zyloprim) 200 mg PO DAILY [facility] Last Admin: 04/12/20 09:44 Dose: 200 mg Documented by: Aspirin (Aspirin) 81 mg PO DAILY [facility] Last Admin: 04/12/20 09:45 Dose: 81 mg Documented by: Dexamethasone (Dexamethasone) 6 mg IVPUSH Q24H [facility] Dextrose (Glutose 15) 15 gm PO ONETIME PRN PRN Reason: Hypoglycemia Dextrose/Water (Dextrose 50% In Water) 50 ml IV ONETIME PRN PRN Reason: Hypoglycemia Enoxaparin Sodium (Lovenox) 30 mg SUBCUT BEDTIME [facility] Gabapentin (Neurontin) 100 mg PO BEDTIME [facility] Last Admin: 04/11/20 21:39 Dose: 100 mg Documented by: Insulin Glargine (Lantus Solostar) 24 units SUBCUT BEDTIME [facility] Insulin Human Lispro (Humalog) 0 unit SUBCUT QIDACANDBED [facility]; Protocol Last Admin: 04/12/20 11:54 Dose: 8 units Documented by: Ondansetron HCl (Zofran) 4 mg IV Q4H PRN PRN Reason: Nausea/Vomiting Polyethylene Glycol (Miralax) 17 gm PO DAILY PRN PRN Reason: Constipation Sodium Chloride (Saline Flush) 10 ml FLUSH ASDIRECTED PRN PRN Reason: Keep Vein Open Tamoxifen Citrate (Nolvadex) 20 mg PO DAILY [facility] Last Admin: 04/12/20 09:45 Dose: 20 mg Documented by: Discontinued Medications Dexamethasone (Dexamethasone) 6 mg IVPUSH ONETIME ONE Stop: 04/11/20 17:50 Last Admin: 04/11/20 18:08 Dose: 6 mg Documented by: Dexamethasone (Dexamethasone) Confirm Administered Dose 4 mg .ROUTE .STK-MED ONE Stop: 04/11/20 18:01 Last Admin: 04/11/20 18:11 Dose: Not Given Documented by: Enoxaparin Sodium (Lovenox) 30 mg SUBCUT DAILY [facility] Last Admin: 04/11/20 21:39 Dose: 30 mg Documented by: Sodium Chloride (Normal Saline) 1,000 mls @ 1,000 mls/hr IV ASDIRECTED [facility] Last Admin: 04/11/20 17:14 Dose: 1,000 mls/hr Documented by: Sodium Chloride (Normal Saline) 1,000 mls @ 50 mls/hr IV ASDIRECTED [facility] Last Admin: 04/11/20 22:32 Dose: 50 mls/hr Documented by: Insulin Glargine (Lantus Solostar) 26 units SUBCUT BEDTIME [facility] Last Admin: 04/11/20 23:35 Dose: Not Given Documented by: Insulin Glargine (Lantus Solostar) 24 units SUBCUT BEDTIME [facility] Last Admin: 04/11/20 22:33 Dose: 24 units Documented by: - Exam Quality Assessment: DVT Prophylaxis General: Alert, Oriented, Cooperative, Mild Distress Lungs: Normal Respiratory Effort, Decreased Breath Sounds, Rales. No: Rhonchi, Wheezing Cardiovascular: Regular Rate, Regular Rhythm, No Murmurs GI/Abdominal Exam: Soft, Non-Tender, No Organomegaly, No Distention, No Abnormal Bruit Extremities: Non-Tender, No Pedal Edema Sepsis Event Note - Evaluation Sepsis Screening Result: Sepsis Risk - Focused Exam Vital Signs: Vital Signs Temp Temp Pulse Resp BP Pulse Ox 04/12/20 12:15 98.4 F 72 20 131/50 L 95 04/12/20 12:13 98.1 F 73 20 132/48 L 94 L 04/12/20 12:05 98.1 F 73 20 132/48 L 94 L 04/12/20 09:00 98.0 F 97 20 114/51 L 91 L 04/12/20 08:19 91 L 04/12/20 04:00 98.3 F 76 18 125/60 90 L 04/12/20 01:27 93 L - Problem List Review Problem List Initiated/Reviewed/Updated: Yes - My Orders Last 24 Hours: My Active Orders 04/11/20 16:23 ABO/RH TYPE [BBK] Routine PATIENT RETYPE [BBK] Routine 04/11/20 Dinner Consistent Carbohydrate Diet [DIET] 04/11/20 18:54 Resuscitation Status Routine 04/11/20 20:41 Acetaminophen [TylenoL] 650 mg PO Q4H PRN Albuterol [Proventil Neb Soln] 2.5 mg NEB Q4H PRN Dextrose 50% in Water 50 ml IV ONETIME PRN Dextrose [Glutose 15] 15 gm PO ONETIME PRN Insulin Lispro [HumaLOG] See Protocol SUBCUT QIDACANDBED Ondansetron [Zofran] 4 mg IV Q4H PRN Sodium Chloride 0.9% [Saline Flush] 10 ml FLUSH ASDIRECTED PRN polyethylene glycoL 3350 [MiraLAX] 17 gm PO DAILY PRN 04/11/20 20:41 Patient Status [ADT] Routine Ambulate [RC] QID Communication Order [RC] STAT Diabetes Education [RC] Click to Edit Height and Weight [RC] DAILY Intake and Output [RC] QSHIFT Notify Provider Vital Signs [RC] .PRN Notify Provider [RC] .PRN Oxygen Therapy [RC] PRN Peripheral IV Care [RC] Q12H Pulse Oximetry [RC] CONTINUOUS RT Aerosol Therapy [RC] ASDIRECTED Up With Assistance [RC] ASDIRECTED Up to Chair [RC] QID VTE/DVT Education [RC] Per Unit Routine Vital Signs [RC] Q4H Peripheral IV Insertion Adult [OM.PC] Routine 04/11/20 21:00 Gabapentin [Neurontin] 100 mg PO BEDTIME 10/27/20 09:00 Aspirin 81 mg PO DAILY Tamoxifen [Nolvadex] 20 mg PO DAILY allopurinoL [Zyloprim] 200 mg PO DAILY 04/12/20 12:37 Convert IV to Saline Lock [OM.PC] Routine 04/12/20 16:30 GLUCOSE POC LAB TO COLLECT JPM [POC] QIDACANDBED 04/12/20 19:00 dexAMETHasone [Dexamethasone] 6 mg IVPUSH Q24H 04/12/20 21:00 GLUCOSE POC LAB TO COLLECT JPM [POC] QIDACANDBED Enoxaparin [Lovenox] 30 mg SUBCUT BEDTIME Insulin Glarg,Human.Rec.Analog [LantUS Solostar] 24 units SUBCUT BEDTIME 04/13/20 05:00 CBC WITH AUTO DIFF [HEME] Timed COMPREHENSIVE METABOLIC PN,CMP [CHEM] Timed 04/13/20 05:11 CRP [C-REACTIVE PROTEIN] [CHEM] AM 04/13/20 07:30 GLUCOSE POC LAB TO COLLECT JPM [POC] QIDACANDBED 04/13/20 11:30 GLUCOSE POC LAB TO COLLECT JPM [POC] QIDACANDBED 04/13/20 16:30 GLUCOSE POC LAB TO COLLECT JPM [POC] QIDACANDBED 04/13/20 21:00 GLUCOSE POC LAB TO COLLECT JPM [POC] QIDACANDBED 04/14/20 07:30 GLUCOSE POC LAB TO COLLECT JPM [POC] QIDACANDBED 04/14/20 11:30 GLUCOSE POC LAB TO COLLECT JPM [POC] QIDACANDBED 04/14/20 16:30 GLUCOSE POC LAB TO COLLECT JPM [POC] QIDACANDBED 04/14/20 21:00 GLUCOSE POC LAB TO COLLECT JPM [POC] QIDACANDBED 04/15/20 07:30 GLUCOSE POC LAB TO COLLECT JPM [POC] QIDACANDBED 04/15/20 11:30 GLUCOSE POC LAB TO COLLECT JPM [POC] QIDACANDBED 04/15/20 16:30 GLUCOSE POC LAB TO COLLECT JPM [POC] QIDACANDBED 04/15/20 21:00 GLUCOSE POC LAB TO COLLECT JPM [POC] QIDACANDBED 04/16/20 07:30 GLUCOSE POC LAB TO COLLECT JPM [POC] QIDACANDBED 04/16/20 11:30 GLUCOSE POC LAB TO COLLECT JPM [POC] QIDACANDBED 04/16/20 16:30 GLUCOSE POC LAB TO COLLECT JPM [POC] QIDACANDBED - Plan Plan:: ASSESSMENT AND PLAN BILATERAL PNEUMONIA SECONDARY TO [id number] significantly worse over the past few days with shortness of breath and profound weakness. Evidence of infiltrates on chest x-ray and hypoxic on evaluation. She is not a candidate for remdesivir because of her renal function. Hypoxia has become mildly worse since admission. -Decadron 6 mg IV daily -Convalescent plasma daily -Supportive care, she refuses prone ventilation -Saline lock IV HYPOXIA-secondary to pneumonia and COVID-19 -Supplemental oxygen as needed -Nebulizer therapy as needed CHRONIC KIDNEY DISEASE STAGE IV-it appears that her current renal function is at baseline -Closely monitor urine output and renal function TYPE 2 DIABETES MELLITUS -Continue usual dose of long-acting insulin -4 times daily glucometers -Moderate dose sliding scale Humalog MAINTENANCE ISSUES -DVT prophylaxis; Lovenox 30 mg subcu daily -GI prophylaxis; not indicated -Figueroa catheter; not indicated -Nutrition; consistent carbohydrate diet -Nicotine dependence; not required CODE STATUS-FULL CODE; I discussed this with the patient when she was seen in the emergency department and she is adamant about aggressive care including intubation if needed ADMISSION STATUS-patient will be admitted to inpatient status, expect at least a 2 night hospital stay for evaluation and management of problems as outlined above. At the time of this admission I do not reasonably expected evaluation and management of this problem will require more than a 96 hour hospital stay. DISPOSITION-anticipate discharge to home after the hospital stay. PRIMARY CARE PROVIDER-
[2020-04-12] MEDS: Gabapentin 100 MG Cap PO SCH (20:59)
[2020-04-12] MEDS: Enoxaparin 30 MG/0.3 ML Syringe SUBCUT SCH (20:59)
[2020-04-12] MEDS: Dexamethasone 4 MG/ML SDV IVPUSH SCH (20:59)
[2020-04-12] MEDS: Acetaminophen 325 MG Tab PO PRN (21:08)
[2020-04-12] MEDS: Insulin Glargine,Human Rec. Analog 100 Units/ML 3 ML Pen SUBCUT SCH (21:10)
[2020-04-12] MEDS: Benzocaine/Cetylpyridinium/Menthol Lozenge MUCMEM PRN (21:30)
[2020-04-12] MEDS ORDERED: Benzocaine/Cetylpyridinium/Menthol Lozenge ONE (21:31)
[2020-04-12] MEDS: Melatonin 3 MG Tab PO PRN (23:20)
[2020-04-13] MEDS: Allopurinol 100 MG Tab PO SCH (08:03)
[2020-04-13] MEDS: Aspirin 81 MG Tab.Chew PO SCH (08:03)
[2020-04-13] MEDS: Tamoxifen 10 MG Tab PO SCH (08:03)
[2020-04-13] MEDS: Insulin Lispro 100 Unit/ML 3 ML KwikPen SUBCUT SCH ×4 (08:04→21:26)
[2020-04-13] MEDS ORDERED: Benzocaine/Cetylpyridinium/Menthol Lozenge MUCMEM PRN (09:00)
[2020-04-13] MEDS ORDERED: Sodium Chloride 0.9% 250 ML IV SCH (16:15)
[2020-04-13] MEDS ORDERED: diphenhydrAMINE 50 MG/ML SDV IVPUSH ONE (16:30)
[2020-04-13] MEDS ORDERED: Acetaminophen 325 MG Tab PO ONE (16:30)
--- NOTE | 2020-04-13 17:49 | PCM.PN ---
- General Info Date of Service: 04/13/20 Subjective Update: Ms. Barnett has experienced some increase in hypoxia and shortness of breath through the day today. Vital signs have otherwise been stable and she has had only mild temperature elevations. Actively she does not feel overly short of breath but has had an increase in her respiratory rate and decrease in oxygen saturation. She has required increase in supplemental oxygen. Functional Status: Reports: Tolerating Diet, Urinating - Review of Systems General: Reports: Fever, Weakness, Fatigue. Denies: Chills Pulmonary: Reports: Shortness of Breath, Cough. Denies: Pleuritic Chest Pain, Sputum, Hemoptysis, Wheezing Cardiovascular: Reports: Dyspnea on Exertion. Denies: Chest Pain, Palpitations, Orthopnea, PND, Edema, Lightheadedness Gastrointestinal: Reports: No Symptoms Genitourinary: Reports: No Symptoms - Patient Data Vitals - Most Recent: Last Vital Signs Temp 100.1 F 04/13/20 17:02 Pulse 74 04/13/20 16:54 Resp 30 H 04/13/20 16:54 BP 133/59 L 04/13/20 16:54 Pulse Ox 93 L 04/13/20 16:54 Weight - Most Recent: 168 lb 5 oz I&O - Last 24 Hours: Intake & Output 04/13/20 04/13/20 04/13/20 06:59 14:59 22:59 Intake Total 100 180 Output Total 200 300 300 Balance -100 -120 -300 Lab Results Last 24 Hours: Laboratory Results - last 24 hr 04/11/20 04/12/20 04/13/20 Range/Units 16:23 21:00 04:33 WBC 9.3 (4.5-11.0) K/uL RBC 3.40 (3.30-5.50) M/uL Hgb 10.7 L (12.0-15.0) g/dL Hct 33.7 L (36.0-48.0) % MCV 99 H (80-98) fL MCH 32 H (27-31) pg MCHC 32 (32-36) % Plt Count 133 L (150-400) K/uL Neut % (Auto) 86 H (36-66) % Lymph % (Auto) 8 L (24-44) % [place] % (Auto) 5 (2-6) % Eos % (Auto) 0 L (2-4) % Baso % (Auto) 0 (0-1) % Sodium (140-148) mmol/L Potassium (3.6-5.2) mmol/L Chloride (100-108) mmol/L Carbon Dioxide (21-32) mmol/L Anion Gap (5.0-14.0) mmol/L BUN (7-18) mg/dL Creatinine (0.6-1.0) mg/dL Est Cr Clr Drug Dosing mL/min Estimated GFR (MDRD) (>60) Glucose (74-106) mg/dL POC Glucose 277 H (74-106) MG/DL Calcium (8.5-10.1) mg/dL Total Bilirubin (0.2-1.0) mg/dL AST (15-37) U/L ALT (12-78) U/L Alkaline Phosphatase (46-116) U/L C-Reactive Protein (0.0-0.3) mg/dL Total Protein (6.4-8.2) g/dL Albumin (3.4-5.0) g/dL Globulin (2.3-3.5) g/dL Albumin/Globulin Ratio (1.2-2.2) Blood Type O POSITIVE 04/13/20 04/13/20 04/13/20 Range/Units 04:33 04:33 07:30 WBC (4.5-11.0) K/uL RBC (3.30-5.50) M/uL Hgb (12.0-15.0) g/dL Hct (36.0-48.0) % MCV (80-98) fL MCH (27-31) pg MCHC (32-36) % Plt Count (150-400) K/uL Neut % (Auto) (36-66) % Lymph % (Auto) (24-44) % [place] % (Auto) (2-6) % Eos % (Auto) (2-4) % Baso % (Auto) (0-1) % Sodium 140 (140-148) mmol/L Potassium 5.3 H (3.6-5.2) mmol/L Chloride 110 H (100-108) mmol/L Carbon Dioxide 23 (21-32) mmol/L Anion Gap 12.3 (5.0-14.0) mmol/L BUN 34 H (7-18) mg/dL Creatinine 1.7 H (0.6-1.0) mg/dL Est Cr Clr Drug Dosing 21.00 mL/min Estimated GFR (MDRD) 28 L (>60) Glucose 230 H (74-106) mg/dL POC Glucose 246 H (74-106) MG/DL Calcium 8.2 L (8.5-10.1) mg/dL Total Bilirubin 0.3 (0.2-1.0) mg/dL AST 60 H (15-37) U/L ALT 28 (12-78) U/L Alkaline Phosphatase 55 (46-116) U/L C-Reactive Protein 3.57 H (0.0-0.3) mg/dL Total Protein 5.6 L (6.4-8.2) g/dL Albumin 2.1 L (3.4-5.0) g/dL Globulin 3.5 (2.3-3.5) g/dL Albumin/Globulin Ratio 0.6 L (1.2-2.2) Blood Type 04/13/20 04/13/20 Range/Units 11:30 16:30 WBC (4.5-11.0) K/uL RBC (3.30-5.50) M/uL Hgb (12.0-15.0) g/dL Hct (36.0-48.0) % MCV (80-98) fL MCH (27-31) pg MCHC (32-36) % Plt Count (150-400) K/uL Neut % (Auto) (36-66) % Lymph % (Auto) (24-44) % [place] % (Auto) (2-6) % Eos % (Auto) (2-4) % Baso % (Auto) (0-1) % Sodium (140-148) mmol/L Potassium (3.6-5.2) mmol/L Chloride (100-108) mmol/L Carbon Dioxide (21-32) mmol/L Anion Gap (5.0-14.0) mmol/L BUN (7-18) mg/dL Creatinine (0.6-1.0) mg/dL Est Cr Clr Drug Dosing mL/min Estimated GFR (MDRD) (>60) Glucose (74-106) mg/dL POC Glucose 270 H 212 H (74-106) MG/DL Calcium (8.5-10.1) mg/dL Total Bilirubin (0.2-1.0) mg/dL AST (15-37) U/L ALT (12-78) U/L Alkaline Phosphatase (46-116) U/L C-Reactive Protein (0.0-0.3) mg/dL Total Protein (6.4-8.2) g/dL Albumin (3.4-5.0) g/dL Globulin (2.3-3.5) g/dL Albumin/Globulin Ratio (1.2-2.2) Blood Type Med Orders - Current: Current Medications Acetaminophen (Tylenol) 650 mg PO Q4H PRN PRN Reason: Pain (Mild 1-3)/fever Last Admin: 04/12/20 21:08 Dose: 650 mg Documented by: Albuterol (Proventil Neb Soln) 2.5 mg NEB Q4H PRN PRN Reason: Shortness Of Breath/wheezing Allopurinol (Zyloprim) 200 mg PO DAILY [facility] Last Admin: 04/13/20 08:03 Dose: 200 mg Documented by: Aspirin (Aspirin) 81 mg PO DAILY [facility] Last Admin: 04/13/20 08:03 Dose: 81 mg Documented by: Benzocaine/Menthol (Cepacol Sore Throat) 1 lozenge MUCMEM ASDIRECTED PRN PRN Reason: SORE THROAT Last Admin: 04/12/20 21:30 Dose: 1 lozenge Documented by: Dexamethasone (Dexamethasone) 6 mg IVPUSH Q24H [facility] Last Admin: 04/12/20 20:59 Dose: 6 mg Documented by: Dextrose (Glutose 15) 15 gm PO ONETIME PRN PRN Reason: Hypoglycemia Dextrose/Water (Dextrose 50% In Water) 50 ml IV ONETIME PRN PRN Reason: Hypoglycemia Enoxaparin Sodium (Lovenox) 30 mg SUBCUT BEDTIME [facility] Last Admin: 04/12/20 20:59 Dose: 30 mg Documented by: Gabapentin (Neurontin) 100 mg PO BEDTIME [facility] Last Admin: 04/12/20 20:59 Dose: 100 mg Documented by: Insulin Glargine (Lantus Solostar) 24 units SUBCUT BEDTIME [facility] Last Admin: 04/12/20 21:10 Dose: 24 units Documented by: Insulin Human Lispro (Humalog) 0 unit SUBCUT QIDACANDBED [facility]; Protocol Last Admin: 04/13/20 17:03 Dose: 4 units Documented by: Melatonin (Melatonin) 9 mg PO BEDTIME PRN PRN Reason: Insomnia Last Admin: 04/12/20 23:20 Dose: 9 mg Documented by: Ondansetron HCl (Zofran) 4 mg IV Q4H PRN PRN Reason: Nausea/Vomiting Polyethylene Glycol (Miralax) 17 gm PO DAILY PRN PRN Reason: Constipation Sodium Chloride (Saline Flush) 10 ml FLUSH ASDIRECTED PRN PRN Reason: Keep Vein Open Tamoxifen Citrate (Nolvadex) 20 mg PO DAILY [facility] Last Admin: 04/13/20 08:03 Dose: 20 mg Documented by: Discontinued Medications Acetaminophen (Tylenol) 650 mg PO ONCALL ONE Stop: 04/13/20 16:31 Last Admin: 04/13/20 17:02 Dose: 650 mg Documented by: Benzocaine/Menthol (Cepacol Sore Throat) 1 lozenge MUCMEM ASDIRECTED PRN PRN Reason: SORE THROAT Benzocaine/Menthol (Cepacol Sore Throat) Confirm Administered Dose 1 lozenge .ROUTE .STK-MED ONE Stop: 04/12/20 21:32 Last Admin: 04/12/20 22:57 Dose: Not Given Documented by: Dexamethasone (Dexamethasone) 6 mg IVPUSH ONETIME ONE Stop: 04/11/20 17:50 Last Admin: 04/11/20 18:08 Dose: 6 mg Documented by: Dexamethasone (Dexamethasone) Confirm Administered Dose 4 mg .ROUTE .STK-MED ONE Stop: 04/11/20 18:01 Last Admin: 04/11/20 18:11 Dose: Not Given Documented by: Diphenhydramine HCl (Benadryl) 25 mg IVPUSH ONCALL ONE Stop: 04/13/20 16:31 Last Admin: 04/13/20 17:02 Dose: 25 mg Documented by: Enoxaparin Sodium (Lovenox) 30 mg SUBCUT DAILY [facility] Last Admin: 04/11/20 21:39 Dose: 30 mg Documented by: Sodium Chloride (Normal Saline) 1,000 mls @ 1,000 mls/hr IV ASDIRECTED [facility] Last Admin: 04/11/20 17:14 Dose: 1,000 mls/hr Documented by: Sodium Chloride (Normal Saline) 1,000 mls @ 50 mls/hr IV ASDIRECTED [facility] Last Admin: 04/11/20 22:32 Dose: 50 mls/hr Documented by: Sodium Chloride (Normal Saline) 250 mls @ 20 mls/hr IV ASDIRECTED [facility] Insulin Glargine (Lantus Solostar) 26 units SUBCUT BEDTIME [facility] Last Admin: 04/11/20 23:35 Dose: Not Given Documented by: Insulin Glargine (Lantus Solostar) 24 units SUBCUT BEDTIME [facility] Last Admin: 04/11/20 22:33 Dose: 24 units Documented by: - Exam General: Alert, Oriented, Cooperative, Moderate Distress Lungs: Decreased Breath Sounds, Rales. No: Crackles, Rhonchi, Wheezing Cardiovascular: Regular Rate, Regular Rhythm, No Murmurs GI/Abdominal Exam: Soft, Non-Tender, No Organomegaly, No Distention Extremities: Non-Tender, No Pedal Edema Sepsis Event Note - Evaluation Sepsis Screening Result: No Definite Risk - Focused Exam Vital Signs: Vital Signs Temp Temp Pulse Resp BP Pulse Ox 04/13/20 17:02 100.1 F 04/13/20 16:54 100.0 F 74 30 H 133/59 L 93 L 04/13/20 16:00 30 H 90 L 04/13/20 13:47 91 L 04/13/20 12:46 97.8 F 81 28 H 114/40 L 87 L 04/13/20 12:15 78 L 04/13/20 07:59 99.1 F 75 20 135/47 L 90 L 04/13/20 07:24 92 L - Problem List Review Problem List Initiated/Reviewed/Updated: Yes - My Orders Last 24 Hours: My Active Orders 04/12/20 19:00 dexAMETHasone [Dexamethasone] 6 mg IVPUSH Q24H 04/12/20 21:00 Enoxaparin [Lovenox] 30 mg SUBCUT BEDTIME Insulin Glarg,Human.Rec.Analog [LantUS Solostar] 24 units SUBCUT BEDTIME 04/12/20 21:29 Benzocaine/Cetylpyrd/Menthol [Cepacol Sore Throat] 1 lozenge MUCMEM ASDIRECTED PRN 04/12/20 23:06 Melatonin 9 mg PO BEDTIME PRN 04/13/20 16:05 Verify Patient Consent Obtain [RC] ASDIRECTED FRESH FROZEN PLASMA [BBK] Routine 04/13/20 16:06 Transfuse Fresh Frozen Plasma [COMM] Routine 04/13/20 17:43 Convert IV to Saline Lock [OM.PC] Routine 04/13/20 21:00 GLUCOSE POC LAB TO COLLECT JPM [POC] QIDACANDBED 04/14/20 05:00 CBC WITH AUTO DIFF [HEME] Timed COMPREHENSIVE METABOLIC PN,CMP [CHEM] Timed 04/14/20 05:11 CRP [C-REACTIVE PROTEIN] [CHEM] AM 04/14/20 07:30 GLUCOSE POC LAB TO COLLECT JPM [POC] QIDACANDBED 04/14/20 11:30 GLUCOSE POC LAB TO COLLECT JPM [POC] QIDACANDBED 04/14/20 16:30 GLUCOSE POC LAB TO COLLECT JPM [POC] QIDACANDBED 04/14/20 21:00 GLUCOSE POC LAB TO COLLECT JPM [POC] QIDACANDBED 04/15/20 07:30 GLUCOSE POC LAB TO COLLECT JPM [POC] QIDACANDBED 04/15/20 11:30 GLUCOSE POC LAB TO COLLECT JPM [POC] QIDACANDBED 04/15/20 16:30 GLUCOSE POC LAB TO COLLECT JPM [POC] QIDACANDBED 04/15/20 21:00 GLUCOSE POC LAB TO COLLECT JPM [POC] QIDACANDBED 04/16/20 07:30 GLUCOSE POC LAB TO COLLECT JPM [POC] QIDACANDBED 04/16/20 11:30 GLUCOSE POC LAB TO COLLECT JPM [POC] QIDACANDBED 04/16/20 16:30 GLUCOSE POC LAB TO COLLECT JPM [POC] QIDACANDBED - Plan Plan:: ASSESSMENT AND PLAN BILATERAL PNEUMONIA SECONDARY TO [id number] of breath and hypoxic through the day today, requiring increased level of supplemental oxygen -Decadron 6 mg IV daily -Convalescent plasma daily -Supportive care, she refuses prone ventilation -Saline lock IV HYPOXIA-secondary to pneumonia and COVID-19 -Supplemental oxygen as needed -Nebulizer therapy as needed CHRONIC KIDNEY DISEASE STAGE IV-renal function has remained stable through hospitalization -Closely monitor urine output and renal function TYPE 2 DIABETES MELLITUS -Continue usual dose of long-acting insulin -4 times daily glucometers -Moderate dose sliding scale Humalog MAINTENANCE ISSUES -DVT prophylaxis; Lovenox 30 mg subcu daily -GI prophylaxis; not indicated -Figueroa catheter; not indicated -Nutrition; consistent carbohydrate diet -Nicotine dependence; not required CODE STATUS-FULL CODE; I discussed this with the patient when she was seen in the emergency department and she is adamant about aggressive care including intubation if needed ADMISSION STATUS-patient will be admitted to inpatient status, expect at least a 2 night hospital stay for evaluation and management of problems as outlined above. At the time of this admission I do not reasonably expected evaluation and management of this problem will require more than a 96 hour hospital stay. DISPOSITION-anticipate discharge to home after the hospital stay. PRIMARY CARE PROVIDER-
[2020-04-13] MEDS: Dexamethasone 4 MG/ML SDV IVPUSH SCH (21:23)
[2020-04-13] MEDS: Gabapentin 100 MG Cap PO SCH (21:25)
[2020-04-13] MEDS: Melatonin 3 MG Tab PO PRN (21:25)
[2020-04-13] MEDS: Acetaminophen 325 MG Tab PO PRN (21:25)
[2020-04-13] MEDS: Insulin Glargine,Human Rec. Analog 100 Units/ML 3 ML Pen SUBCUT SCH (21:26)
[2020-04-13] MEDS: Enoxaparin 30 MG/0.3 ML Syringe SUBCUT SCH (21:29)
[2020-04-14] MEDS: Tamoxifen 10 MG Tab PO SCH (08:50)
[2020-04-14] MEDS: Aspirin 81 MG Tab.Chew PO SCH (08:50)
[2020-04-14] MEDS: Insulin Lispro 100 Unit/ML 3 ML KwikPen SUBCUT SCH ×4 (08:51→21:49)
[2020-04-14] MEDS: Allopurinol 100 MG Tab PO SCH (08:51)
[2020-04-14] MEDS ORDERED: Acetaminophen 325 MG Tab PO ONE (14:30)
[2020-04-14] MEDS ORDERED: diphenhydrAMINE 50 MG/ML SDV IVPUSH ONE (14:30)
[2020-04-14] MEDS: Dexamethasone 4 MG/ML SDV IVPUSH SCH (19:46)
[2020-04-14] MEDS: Enoxaparin 30 MG/0.3 ML Syringe SUBCUT SCH (21:48)
[2020-04-14] MEDS: Gabapentin 100 MG Cap PO SCH (21:48)
[2020-04-14] MEDS: Insulin Glargine,Human Rec. Analog 100 Units/ML 3 ML Pen SUBCUT SCH (21:49)
[2020-04-14] MEDS: Melatonin 3 MG Tab PO PRN (21:55)
--- NOTE | 2020-04-14 23:57 | PCM.PN ---
- General Info Date of Service: 04/14/20 Subjective Update: Ms. Barnett continued to experience slow decline in oxygenation requiring increased levels of supplemental oxygen over the past 2 days. Currently has adequate oxygenation on 7 L/min via high flow nasal cannula. She does get shortness of breath especially with activity, intermittent cough. Vital signs have been stable and she has remained afebrile. Energy level poor and appetite is minimal. - Review of Systems General: Reports: Weakness, Fatigue. Denies: Fever, Chills Pulmonary: Reports: Shortness of Breath, Cough. Denies: Pleuritic Chest Pain, Sputum, Hemoptysis, Wheezing Cardiovascular: Reports: Dyspnea on Exertion. Denies: Chest Pain, Palpitations, Orthopnea, PND, Edema, Lightheadedness Gastrointestinal: Reports: No Symptoms Genitourinary: Reports: No Symptoms - Patient Data Vitals - Most Recent: Last Vital Signs Temp 99.0 F 04/14/20 23:05 Pulse 83 04/14/20 23:05 Resp 16 04/14/20 23:05 BP 169/76 H 04/14/20 23:05 Pulse Ox 90 L 04/14/20 23:05 Weight - Most Recent: 169 lb 8 oz I&O - Last 24 Hours: Intake & Output 04/14/20 04/14/20 04/15/20 14:59 22:59 06:59 Intake Total 400 Output Total 600 350 Balance -600 50 Lab Results Last 24 Hours: Laboratory Results - last 24 hr 04/11/20 04/14/20 04/14/20 Range/Units 16:23 05:54 05:54 WBC 10.0 (4.5-11.0) K/uL RBC 3.40 (3.30-5.50) M/uL Hgb 10.4 L (12.0-15.0) g/dL Hct 33.9 L (36.0-48.0) % MCV 100 H (80-98) fL MCH 31 (27-31) pg MCHC 31 L (32-36) % Plt Count 150 (150-400) K/uL Neut % (Auto) 91 H (36-66) % Lymph % (Auto) 6 L (24-44) % [place] % (Auto) 3 (2-6) % Eos % (Auto) 0 L (2-4) % Baso % (Auto) 0 (0-1) % Sodium 142 (140-148) mmol/L Potassium 5.0 (3.6-5.2) mmol/L Chloride 111 H (100-108) mmol/L Carbon Dioxide 25 (21-32) mmol/L Anion Gap 11.0 (5.0-14.0) mmol/L BUN 35 H (7-18) mg/dL Creatinine 1.6 H (0.6-1.0) mg/dL Est Cr Clr Drug Dosing 22.31 mL/min Estimated GFR (MDRD) 30 L (>60) Glucose 248 H (74-106) mg/dL POC Glucose (74-106) MG/DL Calcium 8.3 L (8.5-10.1) mg/dL Total Bilirubin 0.3 (0.2-1.0) mg/dL AST 56 H (15-37) U/L ALT 31 (12-78) U/L Alkaline Phosphatase 55 (46-116) U/L C-Reactive Protein (0.0-0.3) mg/dL Total Protein 5.6 L (6.4-8.2) g/dL Albumin 2.0 L (3.4-5.0) g/dL Globulin 3.6 H (2.3-3.5) g/dL Albumin/Globulin Ratio 0.6 L (1.2-2.2) Blood Type O POSITIVE 04/14/20 04/14/20 04/14/20 Range/Units 05:54 07:30 11:30 WBC (4.5-11.0) K/uL RBC (3.30-5.50) M/uL Hgb (12.0-15.0) g/dL Hct (36.0-48.0) % MCV (80-98) fL MCH (27-31) pg MCHC (32-36) % Plt Count (150-400) K/uL Neut % (Auto) (36-66) % Lymph % (Auto) (24-44) % [place] % (Auto) (2-6) % Eos % (Auto) (2-4) % Baso % (Auto) (0-1) % Sodium (140-148) mmol/L Potassium (3.6-5.2) mmol/L Chloride (100-108) mmol/L Carbon Dioxide (21-32) mmol/L Anion Gap (5.0-14.0) mmol/L BUN (7-18) mg/dL Creatinine (0.6-1.0) mg/dL Est Cr Clr Drug Dosing mL/min Estimated GFR (MDRD) (>60) Glucose (74-106) mg/dL POC Glucose 225 H 256 H (74-106) MG/DL Calcium (8.5-10.1) mg/dL Total Bilirubin (0.2-1.0) mg/dL AST (15-37) U/L ALT (12-78) U/L Alkaline Phosphatase (46-116) U/L C-Reactive Protein 3.84 H (0.0-0.3) mg/dL Total Protein (6.4-8.2) g/dL Albumin (3.4-5.0) g/dL Globulin (2.3-3.5) g/dL Albumin/Globulin Ratio (1.2-2.2) Blood Type 04/14/20 04/14/20 Range/Units 16:30 21:00 WBC (4.5-11.0) K/uL RBC (3.30-5.50) M/uL Hgb (12.0-15.0) g/dL Hct (36.0-48.0) % MCV (80-98) fL MCH (27-31) pg MCHC (32-36) % Plt Count (150-400) K/uL Neut % (Auto) (36-66) % Lymph % (Auto) (24-44) % [place] % (Auto) (2-6) % Eos % (Auto) (2-4) % Baso % (Auto) (0-1) % Sodium (140-148) mmol/L Potassium (3.6-5.2) mmol/L Chloride (100-108) mmol/L Carbon Dioxide (21-32) mmol/L Anion Gap (5.0-14.0) mmol/L BUN (7-18) mg/dL Creatinine (0.6-1.0) mg/dL Est Cr Clr Drug Dosing mL/min Estimated GFR (MDRD) (>60) Glucose (74-106) mg/dL POC Glucose 233 H 201 H (74-106) MG/DL Calcium (8.5-10.1) mg/dL Total Bilirubin (0.2-1.0) mg/dL AST (15-37) U/L ALT (12-78) U/L Alkaline Phosphatase (46-116) U/L C-Reactive Protein (0.0-0.3) mg/dL Total Protein (6.4-8.2) g/dL Albumin (3.4-5.0) g/dL Globulin (2.3-3.5) g/dL Albumin/Globulin Ratio (1.2-2.2) Blood Type Med Orders - Current: Current Medications Acetaminophen (Tylenol) 650 mg PO Q4H PRN PRN Reason: Pain (Mild 1-3)/fever Last Admin: 04/13/20 21:25 Dose: 650 mg Documented by: Albuterol (Proventil Neb Soln) 2.5 mg NEB Q4H PRN PRN Reason: Shortness Of Breath/wheezing Allopurinol (Zyloprim) 200 mg PO DAILY [facility] Last Admin: 04/14/20 08:51 Dose: 200 mg Documented by: Aspirin (Aspirin) 81 mg PO DAILY [facility] Last Admin: 04/14/20 08:50 Dose: 81 mg Documented by: Benzocaine/Menthol (Cepacol Sore Throat) 1 lozenge MUCMEM ASDIRECTED PRN PRN Reason: SORE THROAT Last Admin: 04/12/20 21:30 Dose: 1 lozenge Documented by: Dexamethasone (Dexamethasone) 6 mg IVPUSH Q24H [facility] Last Admin: 04/14/20 19:46 Dose: 6 mg Documented by: Dextrose (Glutose 15) 15 gm PO ONETIME PRN PRN Reason: Hypoglycemia Dextrose/Water (Dextrose 50% In Water) 50 ml IV ONETIME PRN PRN Reason: Hypoglycemia Enoxaparin Sodium (Lovenox) 30 mg SUBCUT BEDTIME [facility] Last Admin: 04/14/20 21:48 Dose: 30 mg Documented by: Gabapentin (Neurontin) 100 mg PO BEDTIME [facility] Last Admin: 04/14/20 21:48 Dose: 100 mg Documented by: Insulin Glargine (Lantus Solostar) 24 units SUBCUT BEDTIME [facility] Last Admin: 04/14/20 21:49 Dose: 24 units Documented by: Insulin Human Lispro (Humalog) 0 unit SUBCUT QIDACANDBED [facility]; Protocol Last Admin: 04/14/20 21:49 Dose: 4 units Documented by: Melatonin (Melatonin) 9 mg PO BEDTIME PRN PRN Reason: Insomnia Last Admin: 04/14/20 21:55 Dose: 9 mg Documented by: Ondansetron HCl (Zofran) 4 mg IV Q4H PRN PRN Reason: Nausea/Vomiting Polyethylene Glycol (Miralax) 17 gm PO DAILY PRN PRN Reason: Constipation Sodium Chloride (Saline Flush) 10 ml FLUSH ASDIRECTED PRN PRN Reason: Keep Vein Open Tamoxifen Citrate (Nolvadex) 20 mg PO DAILY [facility] Last Admin: 04/14/20 08:50 Dose: 20 mg Documented by: Discontinued Medications Acetaminophen (Tylenol) 650 mg PO ONCALL ONE Stop: 04/13/20 16:31 Last Admin: 04/13/20 17:02 Dose: 650 mg Documented by: Acetaminophen (Tylenol) 650 mg PO ONCALL ONE Stop: 04/14/20 14:31 Last Admin: 04/14/20 15:56 Dose: 650 mg Documented by: Benzocaine/Menthol (Cepacol Sore Throat) 1 lozenge MUCMEM ASDIRECTED PRN PRN Reason: SORE THROAT Benzocaine/Menthol (Cepacol Sore Throat) Confirm Administered Dose 1 lozenge .ROUTE .STK-MED ONE Stop: 04/12/20 21:32 Last Admin: 04/12/20 22:57 Dose: Not Given Documented by: Dexamethasone (Dexamethasone) 6 mg IVPUSH ONETIME ONE Stop: 04/11/20 17:50 Last Admin: 04/11/20 18:08 Dose: 6 mg Documented by: Dexamethasone (Dexamethasone) Confirm Administered Dose 4 mg .ROUTE .STK-MED ONE Stop: 04/11/20 18:01 Last Admin: 04/11/20 18:11 Dose: Not Given Documented by: Diphenhydramine HCl (Benadryl) 25 mg IVPUSH ONCALL ONE Stop: 04/13/20 16:31 Last Admin: 04/13/20 17:02 Dose: 25 mg Documented by: Diphenhydramine HCl (Benadryl) 25 mg IVPUSH ONCALL ONE Stop: 04/14/20 14:31 Last Admin: 04/14/20 15:56 Dose: 25 mg Documented by: Enoxaparin Sodium (Lovenox) 30 mg SUBCUT DAILY [facility] Last Admin: 04/11/20 21:39 Dose: 30 mg Documented by: Sodium Chloride (Normal Saline) 1,000 mls @ 1,000 mls/hr IV ASDIRECTED [facility] Last Admin: 04/11/20 17:14 Dose: 1,000 mls/hr Documented by: Sodium Chloride (Normal Saline) 1,000 mls @ 50 mls/hr IV ASDIRECTED [facility] Last Admin: 04/11/20 22:32 Dose: 50 mls/hr Documented by: Sodium Chloride (Normal Saline) 250 mls @ 20 mls/hr IV ASDIRECTED [facility] Last Admin: 04/13/20 17:55 Dose: 20 mls/hr Documented by: Insulin Glargine (Lantus Solostar) 26 units SUBCUT BEDTIME [facility] Last Admin: 04/11/20 23:35 Dose: Not Given Documented by: Insulin Glargine (Lantus Solostar) 24 units SUBCUT BEDTIME [facility] Last Admin: 04/11/20 22:33 Dose: 24 units Documented by: - Exam Quality Assessment: Supplemental Oxygen, DVT Prophylaxis General: Alert, Oriented, Cooperative, Moderate Distress Lungs: Decreased Breath Sounds, Rales. No: Crackles, Rhonchi, Rub, Wheezing Cardiovascular: Regular Rate, Regular Rhythm, No Murmurs GI/Abdominal Exam: Soft, Non-Tender, No Organomegaly, No Distention Extremities: Non-Tender, No Pedal Edema Sepsis Event Note - Evaluation Sepsis Screening Result: No Definite Risk - Focused Exam Vital Signs: Vital Signs Temp Temp Pulse Resp BP BP Pulse Ox 04/14/20 23:05 99.0 F 83 16 169/76 H 90 L 04/14/20 19:36 97.9 F 79 24 H 145/68 H 90 L 04/14/20 19:23 246 H 04/14/20 17:01 98.4 F 74 28 H 146/64 H 94 L 04/14/20 16:26 98.4 F 04/14/20 16:07 79 L 04/14/20 15:27 97.0 F 83 24 H 147/52 H 90 L 04/14/20 14:34 69 94 L 04/14/20 13:57 94 L 04/14/20 12:04 82 L - Problem List Review Problem List Initiated/Reviewed/Updated: Yes - My Orders Last 24 Hours: My Active Orders 04/14/20 13:55 Verify Patient Consent Obtain [RC] ASDIRECTED 04/14/20 13:56 Transfuse Fresh Frozen Plasma [COMM] Routine 04/15/20 05:00 CBC WITH AUTO DIFF [HEME] Timed COMPREHENSIVE METABOLIC PN,CMP [CHEM] Timed 04/15/20 05:11 CRP [C-REACTIVE PROTEIN] [CHEM] AM 04/15/20 07:30 GLUCOSE POC LAB TO COLLECT JPM [POC] QIDACANDBED 04/15/20 11:30 GLUCOSE POC LAB TO COLLECT JPM [POC] QIDACANDBED 04/15/20 16:30 GLUCOSE POC LAB TO COLLECT JPM [POC] QIDACANDBED 04/15/20 21:00 GLUCOSE POC LAB TO COLLECT JPM [POC] QIDACANDBED 04/16/20 07:30 GLUCOSE POC LAB TO COLLECT JPM [POC] QIDACANDBED 04/16/20 11:30 GLUCOSE POC LAB TO COLLECT JPM [POC] QIDACANDBED 04/16/20 16:30 GLUCOSE POC LAB TO COLLECT JPM [POC] QIDACANDBED - Plan Plan:: ASSESSMENT AND PLAN BILATERAL PNEUMONIA SECONDARY TO COVID-19-or short of breath and hypoxic over the last 36 hours, requiring increased level of supplemental oxygen -Decadron 6 mg IV daily -Convalescent plasma daily -Supportive care, she refuses prone ventilation -Saline lock IV HYPOXIA-secondary to pneumonia and COVID-19 -Supplemental oxygen as needed -Nebulizer therapy as needed CHRONIC KIDNEY DISEASE STAGE IV-renal function has remained stable through hospitalization -Closely monitor urine output and renal function TYPE 2 DIABETES MELLITUS -Continue usual dose of long-acting insulin -4 times daily glucometers -Moderate dose sliding scale Humalog MAINTENANCE ISSUES -DVT prophylaxis; Lovenox 30 mg subcu daily -GI prophylaxis; not indicated -Figuerao catheter; not indicated -Nutrition; consistent carbohydrate diet -Nicotine dependence; not required CODE STATUS-FULL CODE; I discussed this with the patient when she was seen in the emergency department and she is adamant about aggressive care including intubation if needed ADMISSION STATUS-patient will be admitted to inpatient status, expect at least a 2 night hospital stay for evaluation and management of problems as outlined above. At the time of this admission I do not reasonably expected evaluation and management of this problem will require more than a 96 hour hospital stay. DISPOSITION-anticipate discharge to home after the hospital stay. PRIMARY CARE PROVIDER-
[2020-04-15] MEDS: Insulin Lispro 100 Unit/ML 3 ML KwikPen SUBCUT SCH ×4 (08:23→21:26)
[2020-04-15] MEDS: Tamoxifen 10 MG Tab PO SCH (08:26)
[2020-04-15] MEDS: Allopurinol 100 MG Tab PO SCH (08:26)
[2020-04-15] MEDS: Aspirin 81 MG Tab.Chew PO SCH (08:26)
[2020-04-15] MEDS ORDERED: Acetaminophen 325 MG Tab PO ONE (10:30)
[2020-04-15] MEDS ORDERED: diphenhydrAMINE 25 MG Cap PO ONE (10:30)
--- NOTE | 2020-04-15 18:56 | PCM.PN ---
- General Info Date of Service: 04/15/20 Subjective Update: Ms. Barnett continues to require relatively high level of supplemental oxygen. She is not showing significant decline over the past 24 hours and has remained afebrile. Functional Status: Reports: Tolerating Diet, Urinating - Review of Systems General: Reports: Weakness, Fatigue. Denies: Fever, Chills Pulmonary: Reports: Shortness of Breath, Cough. Denies: Pleuritic Chest Pain, Sputum, Hemoptysis, Wheezing Cardiovascular: Reports: Dyspnea on Exertion. Denies: Chest Pain, Palpitations, Orthopnea, PND, Edema, Lightheadedness Gastrointestinal: Reports: No Symptoms Genitourinary: Reports: No Symptoms - Patient Data Vitals - Most Recent: Last Vital Signs Temp 97.5 F 04/15/20 15:29 Pulse 83 04/15/20 15:29 Resp 20 04/15/20 15:29 BP 168/67 H 04/15/20 15:29 Pulse Ox 88 L 04/15/20 15:29 Weight - Most Recent: 167 lb 11.2 oz I&O - Last 24 Hours: Intake & Output 04/15/20 04/15/20 04/15/20 06:59 14:59 22:59 Intake Total 600 268 Balance 600 268 Lab Results Last 24 Hours: Laboratory Results - last 24 hr 04/14/20 04/15/20 04/15/20 Range/Units 21:00 05:20 05:20 WBC 10.6 (4.5-11.0) K/uL RBC 3.55 (3.30-5.50) M/uL Hgb 11.1 L (12.0-15.0) g/dL Hct 35.4 L (36.0-48.0) % MCV 100 H (80-98) fL MCH 31 (27-31) pg MCHC 31 L (32-36) % Plt Count 156 (150-400) K/uL Neut % (Auto) 91 H (36-66) % Lymph % (Auto) 5 L (24-44) % [place] % (Auto) 4 (2-6) % Eos % (Auto) 0 L (2-4) % Baso % (Auto) 0 (0-1) % Sodium 144 (140-148) mmol/L Potassium 4.7 (3.6-5.2) mmol/L Chloride 111 H (100-108) mmol/L Carbon Dioxide 24 (21-32) mmol/L Anion Gap 13.7 (5.0-14.0) mmol/L BUN 33 H (7-18) mg/dL Creatinine 1.4 H (0.6-1.0) mg/dL Est Cr Clr Drug Dosing 25.50 mL/min Estimated GFR (MDRD) 35 L (>60) Glucose 263 H (74-106) mg/dL POC Glucose 201 H (74-106) MG/DL Calcium 8.6 (8.5-10.1) mg/dL Total Bilirubin 0.4 (0.2-1.0) mg/dL AST 50 H (15-37) U/L ALT 30 (12-78) U/L Alkaline Phosphatase 59 (46-116) U/L C-Reactive Protein (0.0-0.3) mg/dL Total Protein 5.9 L (6.4-8.2) g/dL Albumin 2.1 L (3.4-5.0) g/dL Globulin 3.8 H (2.3-3.5) g/dL Albumin/Globulin Ratio 0.6 L (1.2-2.2) Blood Type 04/15/20 04/15/20 04/15/20 Range/Units 05:20 11:30 11:57 WBC (4.5-11.0) K/uL RBC (3.30-5.50) M/uL Hgb (12.0-15.0) g/dL Hct (36.0-48.0) % MCV (80-98) fL MCH (27-31) pg MCHC (32-36) % Plt Count (150-400) K/uL Neut % (Auto) (36-66) % Lymph % (Auto) (24-44) % [place] % (Auto) (2-6) % Eos % (Auto) (2-4) % Baso % (Auto) (0-1) % Sodium (140-148) mmol/L Potassium (3.6-5.2) mmol/L Chloride (100-108) mmol/L Carbon Dioxide (21-32) mmol/L Anion Gap (5.0-14.0) mmol/L BUN (7-18) mg/dL Creatinine (0.6-1.0) mg/dL Est Cr Clr Drug Dosing mL/min Estimated GFR (MDRD) (>60) Glucose (74-106) mg/dL POC Glucose 241 H (74-106) MG/DL Calcium (8.5-10.1) mg/dL Total Bilirubin (0.2-1.0) mg/dL AST (15-37) U/L ALT (12-78) U/L Alkaline Phosphatase (46-116) U/L C-Reactive Protein 4.06 H (0.0-0.3) mg/dL Total Protein (6.4-8.2) g/dL Albumin (3.4-5.0) g/dL Globulin (2.3-3.5) g/dL Albumin/Globulin Ratio (1.2-2.2) Blood Type Cancelled 04/15/20 Range/Units 16:30 WBC (4.5-11.0) K/uL RBC (3.30-5.50) M/uL Hgb (12.0-15.0) g/dL Hct (36.0-48.0) % MCV (80-98) fL MCH (27-31) pg MCHC (32-36) % Plt Count (150-400) K/uL Neut % (Auto) (36-66) % Lymph % (Auto) (24-44) % [place] % (Auto) (2-6) % Eos % (Auto) (2-4) % Baso % (Auto) (0-1) % Sodium (140-148) mmol/L Potassium (3.6-5.2) mmol/L Chloride (100-108) mmol/L Carbon Dioxide (21-32) mmol/L Anion Gap (5.0-14.0) mmol/L BUN (7-18) mg/dL Creatinine (0.6-1.0) mg/dL Est Cr Clr Drug Dosing mL/min Estimated GFR (MDRD) (>60) Glucose (74-106) mg/dL POC Glucose 245 H (74-106) MG/DL Calcium (8.5-10.1) mg/dL Total Bilirubin (0.2-1.0) mg/dL AST (15-37) U/L ALT (12-78) U/L Alkaline Phosphatase (46-116) U/L C-Reactive Protein (0.0-0.3) mg/dL Total Protein (6.4-8.2) g/dL Albumin (3.4-5.0) g/dL Globulin (2.3-3.5) g/dL Albumin/Globulin Ratio (1.2-2.2) Blood Type Med Orders - Current: Current Medications Acetaminophen (Tylenol) 650 mg PO Q4H PRN PRN Reason: Pain (Mild 1-3)/fever Last Admin: 04/13/20 21:25 Dose: 650 mg Documented by: Albuterol (Proventil Neb Soln) 2.5 mg NEB Q4H PRN PRN Reason: Shortness Of Breath/wheezing Allopurinol (Zyloprim) 200 mg PO DAILY [facility] Last Admin: 04/15/20 08:26 Dose: 200 mg Documented by: Aspirin (Aspirin) 81 mg PO DAILY [facility] Last Admin: 04/15/20 08:26 Dose: 81 mg Documented by: Benzocaine/Menthol (Cepacol Sore Throat) 1 lozenge MUCMEM ASDIRECTED PRN PRN Reason: SORE THROAT Last Admin: 04/12/20 21:30 Dose: 1 lozenge Documented by: Dexamethasone (Dexamethasone) 6 mg IVPUSH Q24H [facility] Last Admin: 04/14/20 19:46 Dose: 6 mg Documented by: Dextrose (Glutose 15) 15 gm PO ONETIME PRN PRN Reason: Hypoglycemia Dextrose/Water (Dextrose 50% In Water) 50 ml IV ONETIME PRN PRN Reason: Hypoglycemia Enoxaparin Sodium (Lovenox) 30 mg SUBCUT BEDTIME [facility] Last Admin: 04/14/20 21:48 Dose: 30 mg Documented by: Gabapentin (Neurontin) 100 mg PO BEDTIME [facility] Last Admin: 04/14/20 21:48 Dose: 100 mg Documented by: Insulin Glargine (Lantus Solostar) 24 units SUBCUT BEDTIME [facility] Last Admin: 04/14/20 21:49 Dose: 24 units Documented by: Insulin Human Lispro (Humalog) 0 unit SUBCUT QIDACANDBED [facility]; Protocol Last Admin: 04/15/20 16:58 Dose: 4 units Documented by: Melatonin (Melatonin) 9 mg PO BEDTIME PRN PRN Reason: Insomnia Last Admin: 04/14/20 21:55 Dose: 9 mg Documented by: Ondansetron HCl (Zofran) 4 mg IV Q4H PRN PRN Reason: Nausea/Vomiting Polyethylene Glycol (Miralax) 17 gm PO DAILY PRN PRN Reason: Constipation Sodium Chloride (Saline Flush) 10 ml FLUSH ASDIRECTED PRN PRN Reason: Keep Vein Open Last Admin: 04/15/20 09:45 Dose: 10 ml Documented by: Tamoxifen Citrate (Nolvadex) 20 mg PO DAILY [facility] Last Admin: 04/15/20 08:26 Dose: 20 mg Documented by: Discontinued Medications Acetaminophen (Tylenol) 650 mg PO ONCALL ONE Stop: 04/13/20 16:31 Last Admin: 04/13/20 17:02 Dose: 650 mg Documented by: Acetaminophen (Tylenol) 650 mg PO ONCALL ONE Stop: 04/14/20 14:31 Last Admin: 04/14/20 15:56 Dose: 650 mg Documented by: Acetaminophen (Tylenol) 650 mg PO ONCALL ONE Stop: 04/15/20 10:31 Last Admin: 04/15/20 09:44 Dose: 650 mg Documented by: Benzocaine/Menthol (Cepacol Sore Throat) 1 lozenge MUCMEM ASDIRECTED PRN PRN Reason: SORE THROAT Benzocaine/Menthol (Cepacol Sore Throat) Confirm Administered Dose 1 lozenge .ROUTE .STK-MED ONE Stop: 04/12/20 21:32 Last Admin: 04/12/20 22:57 Dose: Not Given Documented by: Dexamethasone (Dexamethasone) 6 mg IVPUSH ONETIME ONE Stop: 04/11/20 17:50 Last Admin: 04/11/20 18:08 Dose: 6 mg Documented by: Dexamethasone (Dexamethasone) Confirm Administered Dose 4 mg .ROUTE .STK-MED ONE Stop: 04/11/20 18:01 Last Admin: 04/11/20 18:11 Dose: Not Given Documented by: Diphenhydramine HCl (Benadryl) 25 mg IVPUSH ONCALL ONE Stop: 04/13/20 16:31 Last Admin: 04/13/20 17:02 Dose: 25 mg Documented by: Diphenhydramine HCl (Benadryl) 25 mg IVPUSH ONCALL ONE Stop: 04/14/20 14:31 Last Admin: 04/14/20 15:56 Dose: 25 mg Documented by: Diphenhydramine HCl (Benadryl) 25 mg PO ONCALL ONE Stop: 04/15/20 10:31 Last Admin: 04/15/20 09:46 Dose: 25 mg Documented by: Enoxaparin Sodium (Lovenox) 30 mg SUBCUT DAILY [facility] Last Admin: 04/11/20 21:39 Dose: 30 mg Documented by: Sodium Chloride (Normal Saline) 1,000 mls @ 1,000 mls/hr IV ASDIRECTED [facility] Last Admin: 04/11/20 17:14 Dose: 1,000 mls/hr Documented by: Sodium Chloride (Normal Saline) 1,000 mls @ 50 mls/hr IV ASDIRECTED [facility] Last Admin: 04/11/20 22:32 Dose: 50 mls/hr Documented by: Sodium Chloride (Normal Saline) 250 mls @ 20 mls/hr IV ASDIRECTED [facility] Last Admin: 04/13/20 17:55 Dose: 20 mls/hr Documented by: Insulin Glargine (Lantus Solostar) 26 units SUBCUT BEDTIME [facility] Last Admin: 04/11/20 23:35 Dose: Not Given Documented by: Insulin Glargine (Lantus Solostar) 24 units SUBCUT BEDTIME [facility] Last Admin: 04/11/20 22:33 Dose: 24 units Documented by: - Exam Quality Assessment: DVT Prophylaxis General: Alert, Oriented, Cooperative, Moderate Distress Lungs: Clear to Auscultation, Normal Respiratory Effort, Decreased Breath Sounds Cardiovascular: Regular Rate, Regular Rhythm, No Murmurs GI/Abdominal Exam: Soft, Non-Tender, No Organomegaly, No Distention Extremities: Non-Tender, No Pedal Edema Sepsis Event Note - Evaluation Sepsis Screening Result: No Definite Risk - Focused Exam Vital Signs: Vital Signs Temp Temp Pulse Resp BP Pulse Ox 04/15/20 15:29 97.5 F 83 20 168/67 H 88 L 04/15/20 13:36 98.1 F 81 22 H 144/60 H 91 L 04/15/20 13:28 98.0 F 78 22 H 147/59 H 90 L 04/15/20 13:11 98.3 F 81 20 144/61 H 92 L 04/15/20 12:53 97.6 F 80 22 H 140/63 91 L 04/15/20 12:38 97.7 F 74 20 125/65 92 L 04/15/20 12:20 97.7 F 80 26 H 136/68 04/15/20 12:15 83 L 04/15/20 11:31 97.7 F 82 20 142/69 H 91 L 04/15/20 08:25 82 L 04/15/20 08:14 97.2 F 84 24 H 123/55 L 87 L 04/15/20 07:21 94 L - Problem List Review Problem List Initiated/Reviewed/Updated: Yes - My Orders Last 24 Hours: My Active Orders 04/15/20 08:09 GLUCOSE POC LAB TO COLLECT JPM [POC] QIDACANDBED 04/15/20 08:58 Verify Patient Consent Obtain [RC] ASDIRECTED Transfuse Fresh Frozen Plasma [COMM] Routine 04/15/20 21:00 GLUCOSE POC LAB TO COLLECT JPM [POC] QIDACANDBED 04/16/20 07:30 GLUCOSE POC LAB TO COLLECT JPM [POC] QIDACANDBED 04/16/20 11:30 GLUCOSE POC LAB TO COLLECT JPM [POC] QIDACANDBED 04/16/20 16:30 GLUCOSE POC LAB TO COLLECT JPM [POC] QIDACANDBED - Plan Plan:: ASSESSMENT AND PLAN BILATERAL PNEUMONIA SECONDARY TO OLYCT-18-syuvos since yesterday, continues to require high level of supplemental oxygen to maintain adequate saturations. She does become short of breath and hypoxic with minimal exertion. -Decadron 6 mg IV daily -Convalescent plasma daily -Supportive care, she refuses prone ventilation -Saline lock IV HYPOXIA-secondary to pneumonia and COVID-19 -Supplemental oxygen as needed -Nebulizer therapy as needed CHRONIC KIDNEY DISEASE STAGE IV-renal function has remained stable through hospitalization -Closely monitor urine output and renal function TYPE 2 DIABETES MELLITUS -Continue usual dose of long-acting insulin -4 times daily glucometers -Moderate dose sliding scale Humalog MAINTENANCE ISSUES -DVT prophylaxis; Lovenox 30 mg subcu daily -GI prophylaxis; not indicated -Figueroa catheter; not indicated -Nutrition; consistent carbohydrate diet -Nicotine dependence; not required CODE STATUS-FULL CODE; I discussed this with the patient when she was seen in the emergency department and she is adamant about aggressive care including intubation if needed ADMISSION STATUS-patient will be admitted to inpatient status, expect at least a 2 night hospital stay for evaluation and management of problems as outlined above. At the time of this admission I do not reasonably expected evaluation and management of this problem will require more than a 96 hour hospital stay. DISPOSITION-anticipate discharge to home after the hospital stay. PRIMARY CARE PROVIDER-
[2020-04-15] MEDS: Dexamethasone 4 MG/ML SDV IVPUSH SCH (19:19)
[2020-04-15] MEDS: Enoxaparin 30 MG/0.3 ML Syringe SUBCUT SCH (20:09)
[2020-04-15] MEDS: Acetaminophen 325 MG Tab PO PRN (20:09)
[2020-04-15] MEDS: Melatonin 3 MG Tab PO PRN (20:09)
[2020-04-15] MEDS: Insulin Glargine,Human Rec. Analog 100 Units/ML 3 ML Pen SUBCUT SCH (21:28)
[2020-04-15] MEDS: Gabapentin 100 MG Cap PO SCH (21:32)
[2020-04-15] MEDS: oxyCODONE 5 MG Tab PO PRN (21:50)
[2020-04-16] MEDS: Albuterol 8 GM Inhaler INH PRN ×3 (01:28→21:37)
[2020-04-16] MEDS: Benzocaine/Cetylpyridinium/Menthol Lozenge MUCMEM PRN (03:56)
[2020-04-16] MEDS: Insulin Lispro 100 Unit/ML 3 ML KwikPen SUBCUT SCH ×4 (07:43→21:34)
[2020-04-16] MEDS: Aspirin 81 MG Tab.Chew PO SCH (08:04)
[2020-04-16] MEDS: Tamoxifen 10 MG Tab PO SCH (08:04)
[2020-04-16] MEDS: Allopurinol 100 MG Tab PO SCH (08:04)
[2020-04-16] MEDS ORDERED: Acetaminophen 325 MG Tab PO ONE (09:00)
[2020-04-16] MEDS ORDERED: diphenhydrAMINE 25 MG Cap PO ONE (09:00)
[2020-04-16] MEDS ORDERED: Furosemide 40 MG/4 ML VIAL IVPUSH ONE (12:00)
[2020-04-16] MEDS: LORazepam 2 MG/ML SDV IVPUSH PRN ×2 (14:25→21:57)
--- NOTE | 2020-04-16 16:41 | PCM.PN ---
- General Info Date of Service: 04/16/20 Subjective Update: Ms. Barnett unfortunately experienced further decline in respiratory status over the last 24 hours, she is now required high flow oxygen via nasal cannula at 15 L/min. Even with high flow oxygen saturations have been in the mid 80s. Has been placed on noninvasive positive pressure ventilation with fairly good result and toleration. She is remained afebrile and otherwise has been hemodynamically stable. Functional Status: Reports: Urinating - Review of Systems General: Reports: Weakness. Denies: Fever, Chills Pulmonary: Reports: Shortness of Breath, Cough. Denies: Pleuritic Chest Pain, Sputum, Hemoptysis, Wheezing Cardiovascular: Reports: Dyspnea on Exertion. Denies: Chest Pain, Palpitations, Orthopnea, PND, Edema, Lightheadedness Gastrointestinal: Reports: No Symptoms Genitourinary: Reports: No Symptoms - Patient Data Vitals - Most Recent: Last Vital Signs Temp 97 F 04/16/20 15:46 Pulse 76 04/16/20 15:46 Resp 28 H 04/16/20 15:46 BP 143/72 H 04/16/20 15:46 Pulse Ox 92 L 04/16/20 15:46 Weight - Most Recent: 162 lb I&O - Last 24 Hours: Intake & Output 04/16/20 04/16/20 04/16/20 06:59 14:59 22:59 Intake Total 600 896 Output Total 400 Balance 600 496 Lab Results Last 24 Hours: Laboratory Results - last 24 hr 04/15/20 04/15/20 04/16/20 Range/Units 16:30 21:22 05:30 WBC 8.5 (4.5-11.0) K/uL RBC 3.46 (3.30-5.50) M/uL Hgb 10.7 L (12.0-15.0) g/dL Hct 34.3 L (36.0-48.0) % MCV 99 H (80-98) fL MCH 31 (27-31) pg MCHC 31 L (32-36) % Plt Count 165 (150-400) K/uL Neut % (Auto) 89 H (36-66) % Lymph % (Auto) 7 L (24-44) % [place] % (Auto) 4 (2-6) % Eos % (Auto) 0 L (2-4) % Baso % (Auto) 0 (0-1) % Sodium (140-148) mmol/L Potassium (3.6-5.2) mmol/L Chloride (100-108) mmol/L Carbon Dioxide (21-32) mmol/L Anion Gap (5.0-14.0) mmol/L BUN (7-18) mg/dL Creatinine (0.6-1.0) mg/dL Est Cr Clr Drug Dosing mL/min Estimated GFR (MDRD) (>60) Glucose (74-106) mg/dL POC Glucose 245 H 231 H (74-106) MG/DL Calcium (8.5-10.1) mg/dL Ferritin (8-388) ng/ml Total Bilirubin (0.2-1.0) mg/dL AST (15-37) U/L ALT (12-78) U/L Alkaline Phosphatase (46-116) U/L C-Reactive Protein (0.0-0.3) mg/dL Total Protein (6.4-8.2) g/dL Albumin (3.4-5.0) g/dL Globulin (2.3-3.5) g/dL Albumin/Globulin Ratio (1.2-2.2) 04/16/20 04/16/20 04/16/20 Range/Units 05:30 05:30 07:30 WBC (4.5-11.0) K/uL RBC (3.30-5.50) M/uL Hgb (12.0-15.0) g/dL Hct (36.0-48.0) % MCV (80-98) fL MCH (27-31) pg MCHC (32-36) % Plt Count (150-400) K/uL Neut % (Auto) (36-66) % Lymph % (Auto) (24-44) % [place] % (Auto) (2-6) % Eos % (Auto) (2-4) % Baso % (Auto) (0-1) % Sodium 139 L (140-148) mmol/L Potassium 4.7 (3.6-5.2) mmol/L Chloride 107 (100-108) mmol/L Carbon Dioxide 23 (21-32) mmol/L Anion Gap 13.7 (5.0-14.0) mmol/L BUN 35 H (7-18) mg/dL Creatinine 1.5 H (0.6-1.0) mg/dL Est Cr Clr Drug Dosing 23.80 mL/min Estimated GFR (MDRD) 33 L (>60) Glucose 280 H (74-106) mg/dL POC Glucose 309 H (74-106) MG/DL Calcium 8.5 (8.5-10.1) mg/dL Ferritin 270 (8-388) ng/ml Total Bilirubin 0.5 (0.2-1.0) mg/dL AST 37 (15-37) U/L ALT 26 (12-78) U/L Alkaline Phosphatase 66 (46-116) U/L C-Reactive Protein 4.86 H (0.0-0.3) mg/dL Total Protein 5.9 L (6.4-8.2) g/dL Albumin 2.1 L (3.4-5.0) g/dL Globulin 3.8 H (2.3-3.5) g/dL Albumin/Globulin Ratio 0.6 L (1.2-2.2) 04/16/20 Range/Units 11:43 WBC (4.5-11.0) K/uL RBC (3.30-5.50) M/uL Hgb (12.0-15.0) g/dL Hct (36.0-48.0) % MCV (80-98) fL MCH (27-31) pg MCHC (32-36) % Plt Count (150-400) K/uL Neut % (Auto) (36-66) % Lymph % (Auto) (24-44) % [place] % (Auto) (2-6) % Eos % (Auto) (2-4) % Baso % (Auto) (0-1) % Sodium (140-148) mmol/L Potassium (3.6-5.2) mmol/L Chloride (100-108) mmol/L Carbon Dioxide (21-32) mmol/L Anion Gap (5.0-14.0) mmol/L BUN (7-18) mg/dL Creatinine (0.6-1.0) mg/dL Est Cr Clr Drug Dosing mL/min Estimated GFR (MDRD) (>60) Glucose (74-106) mg/dL POC Glucose 237 H (74-106) MG/DL Calcium (8.5-10.1) mg/dL Ferritin (8-388) ng/ml Total Bilirubin (0.2-1.0) mg/dL AST (15-37) U/L ALT (12-78) U/L Alkaline Phosphatase (46-116) U/L C-Reactive Protein (0.0-0.3) mg/dL Total Protein (6.4-8.2) g/dL Albumin (3.4-5.0) g/dL Globulin (2.3-3.5) g/dL Albumin/Globulin Ratio (1.2-2.2) Med Orders - Current: Current Medications Acetaminophen (Tylenol) 650 mg PO Q4H PRN PRN Reason: Pain (Mild 1-3)/fever Last Admin: 04/15/20 20:09 Dose: 650 mg Documented by: Albuterol (Ventolin Hfa) 2 gm INH Q4H PRN PRN Reason: Shortness of Breath Last Admin: 04/16/20 05:26 Dose: 2 puff Documented by: Allopurinol (Zyloprim) 200 mg PO DAILY [facility] Last Admin: 04/16/20 08:04 Dose: 200 mg Documented by: Aspirin (Aspirin) 81 mg PO DAILY NABILA Last Admin: 04/16/20 08:04 Dose: 81 mg Documented by: Benzocaine/Menthol (Cepacol Sore Throat) 1 lozenge MUCMEM ASDIRECTED PRN PRN Reason: SORE THROAT Last Admin: 04/16/20 03:56 Dose: 1 lozenge Documented by: Dexamethasone (Dexamethasone) 6 mg IVPUSH Q24H NABILA Last Admin: 04/15/20 19:19 Dose: 6 mg Documented by: Dextrose (Glutose 15) 15 gm PO ONETIME PRN PRN Reason: Hypoglycemia Dextrose/Water (Dextrose 50% In Water) 50 ml IV ONETIME PRN PRN Reason: Hypoglycemia Enoxaparin Sodium (Lovenox) 30 mg SUBCUT BEDTIME NABILA Last Admin: 04/15/20 20:09 Dose: 30 mg Documented by: Gabapentin (Neurontin) 100 mg PO BEDTIME NABILA Last Admin: 04/15/20 21:32 Dose: 100 mg Documented by: Insulin Glargine (Lantus Solostar) 24 units SUBCUT BEDTIME NABILA Last Admin: 04/15/20 21:28 Dose: 24 units Documented by: Insulin Human Lispro (Humalog) 0 unit SUBCUT QIDACANDBED [facility]; Protocol Last Admin: 04/16/20 12:25 Dose: 4 units Documented by: Lorazepam (Ativan) 0.5 mg IVPUSH Q2H PRN PRN Reason: Anxiety Last Admin: 04/16/20 14:25 Dose: 0.5 mg Documented by: Melatonin (Melatonin) 9 mg PO BEDTIME PRN PRN Reason: Insomnia Last Admin: 04/15/20 20:09 Dose: 9 mg Documented by: Ondansetron HCl (Zofran) 4 mg IV Q4H PRN PRN Reason: Nausea/Vomiting Oxycodone HCl (Oxycodone) 5 mg PO Q4H PRN PRN Reason: Pain Last Admin: 04/15/20 21:50 Dose: 5 mg Documented by: Polyethylene Glycol (Miralax) 17 gm PO DAILY PRN PRN Reason: Constipation Sodium Chloride (Saline Flush) 10 ml FLUSH ASDIRECTED PRN PRN Reason: Keep Vein Open Last Admin: 04/15/20 09:45 Dose: 10 ml Documented by: Tamoxifen Citrate (Nolvadex) 20 mg PO DAILY [facility] Last Admin: 04/16/20 08:04 Dose: 20 mg Documented by: Discontinued Medications Acetaminophen (Tylenol) 650 mg PO ONCALL ONE Stop: 04/13/20 16:31 Last Admin: 04/13/20 17:02 Dose: 650 mg Documented by: Acetaminophen (Tylenol) 650 mg PO ONCALL ONE Stop: 04/14/20 14:31 Last Admin: 04/14/20 15:56 Dose: 650 mg Documented by: Acetaminophen (Tylenol) 650 mg PO ONCALL ONE Stop: 04/15/20 10:31 Last Admin: 04/15/20 09:44 Dose: 650 mg Documented by: Acetaminophen (Tylenol) 650 mg PO ONCALL ONE Stop: 04/16/20 09:01 Last Admin: 04/16/20 09:28 Dose: 650 mg Documented by: Albuterol (Proventil Neb Soln) 2.5 mg NEB Q4H PRN PRN Reason: Shortness Of Breath/wheezing Last Admin: 04/15/20 20:23 Dose: 2.5 mg Documented by: Benzocaine/Menthol (Cepacol Sore Throat) 1 lozenge MUCMEM ASDIRECTED PRN PRN Reason: SORE THROAT Benzocaine/Menthol (Cepacol Sore Throat) Confirm Administered Dose 1 lozenge .ROUTE .STK-MED ONE Stop: 04/12/20 21:32 Last Admin: 04/12/20 22:57 Dose: Not Given Documented by: Dexamethasone (Dexamethasone) 6 mg IVPUSH ONETIME ONE Stop: 04/11/20 17:50 Last Admin: 04/11/20 18:08 Dose: 6 mg Documented by: Dexamethasone (Dexamethasone) Confirm Administered Dose 4 mg .ROUTE .STK-MED ONE Stop: 04/11/20 18:01 Last Admin: 04/11/20 18:11 Dose: Not Given Documented by: Diphenhydramine HCl (Benadryl) 25 mg IVPUSH ONCALL ONE Stop: 04/13/20 16:31 Last Admin: 04/13/20 17:02 Dose: 25 mg Documented by: Diphenhydramine HCl (Benadryl) 25 mg IVPUSH ONCALL ONE Stop: 04/14/20 14:31 Last Admin: 04/14/20 15:56 Dose: 25 mg Documented by: Diphenhydramine HCl (Benadryl) 25 mg PO ONCALL ONE Stop: 04/15/20 10:31 Last Admin: 04/15/20 09:46 Dose: 25 mg Documented by: Diphenhydramine HCl (Benadryl) 25 mg PO ONCALL ONE Stop: 04/16/20 09:01 Last Admin: 04/16/20 09:28 Dose: 25 mg Documented by: Enoxaparin Sodium (Lovenox) 30 mg SUBCUT DAILY [facility] Last Admin: 04/11/20 21:39 Dose: 30 mg Documented by: Furosemide (Lasix) 40 mg IVPUSH NOW ONE Stop: 04/16/20 12:01 Last Admin: 04/16/20 12:26 Dose: 40 mg Documented by: Sodium Chloride (Normal Saline) 1,000 mls @ 1,000 mls/hr IV ASDIRECTED NABILA Last Admin: 04/11/20 17:14 Dose: 1,000 mls/hr Documented by: Sodium Chloride (Normal Saline) 1,000 mls @ 50 mls/hr IV ASDIRECTED [facility] Last Admin: 04/11/20 22:32 Dose: 50 mls/hr Documented by: Sodium Chloride (Normal Saline) 250 mls @ 20 mls/hr IV ASDIRECTED [facility] Last Admin: 04/13/20 17:55 Dose: 20 mls/hr Documented by: Insulin Glargine (Lantus Solostar) 26 units SUBCUT BEDTIME [facility] Last Admin: 04/11/20 23:35 Dose: Not Given Documented by: Insulin Glargine (Lantus Solostar) 24 units SUBCUT BEDTIME [facility] Last Admin: 04/11/20 22:33 Dose: 24 units Documented by: - Exam Quality Assessment: Supplemental Oxygen (Noninvasive positive pressure ventilation), DVT Prophylaxis General: Alert, Oriented, Cooperative, Moderate Distress Lungs: Rales. No: Crackles, Rhonchi, Wheezing Cardiovascular: Regular Rate, Regular Rhythm, No Murmurs GI/Abdominal Exam: Soft, Non-Tender, No Organomegaly, No Distention Extremities: Non-Tender, No Pedal Edema Sepsis Event Note - Evaluation Sepsis Screening Result: No Definite Risk - Focused Exam Vital Signs: Vital Signs Temp Temp Pulse Resp BP Pulse Ox 04/16/20 15:46 97 F 76 28 H 143/72 H 92 L 04/16/20 15:12 81 26 H 91 L 04/16/20 12:02 92 L 04/16/20 10:54 97.9 F 97.9 F 72 22 H 145/57 H 90 L 04/16/20 10:35 97.9 F 79 21 H 141/86 H 90 L 04/16/20 10:20 97.8 F 75 20 145/64 H 93 L 04/16/20 10:05 98.1 F 86 22 H 157/65 H 85 L 04/16/20 08:00 92 L 04/16/20 07:09 99 F 85 24 H 173/82 H 88 L - Problem List Review Problem List Initiated/Reviewed/Updated: Yes - My Orders Last 24 Hours: My Active Orders 04/15/20 21:27 oxyCODONE 5 mg PO Q4H PRN 04/15/20 22:14 Albuterol [Ventolin HFA] 2 gm INH Q4H PRN 04/15/20 22:15 RT Post Treatment Assessment [RC] Click to Edit 04/16/20 08:08 Transfuse Fresh Frozen Plasma [COMM] Routine 04/16/20 10:38 BIPAP Adult [RT BiPAP/CPAP] [RC] ASDIRECTED 04/16/20 14:08 LORazepam [Ativan] 0.5 mg IVPUSH Q2H PRN 04/16/20 16:30 GLUCOSE POC LAB TO COLLECT JPM [POC] QIDACANDBED 04/16/20 21:00 GLUCOSE POC LAB TO COLLECT JPM [POC] QIDACANDBED 04/17/20 05:00 CBC WITH AUTO DIFF [HEME] Timed COMPREHENSIVE METABOLIC PN,CMP [CHEM] Timed INR,PT,PROTHROMBIN TIME [COAG] Timed PTT,PARTIAL THROMBOPLSTIN TIME [COAG] Timed 04/17/20 05:11 CRP [C-REACTIVE PROTEIN] [CHEM] AM D Dimer [D-DIMER QUANTITATIVE] [COAG] AM FERRITIN [CHEM] AM 04/17/20 07:30 GLUCOSE POC LAB TO COLLECT JPM [POC] QIDACANDBED 04/17/20 11:30 GLUCOSE POC LAB TO COLLECT JPM [POC] QIDACANDBED 04/17/20 16:30 GLUCOSE POC LAB TO COLLECT JPM [POC] QIDACANDBED 04/17/20 21:00 GLUCOSE POC LAB TO COLLECT JPM [POC] QIDACANDBED 04/18/20 07:30 GLUCOSE POC LAB TO COLLECT JPM [POC] QIDACANDBED 04/18/20 11:30 GLUCOSE POC LAB TO COLLECT JPM [POC] QIDACANDBED 04/18/20 16:30 GLUCOSE POC LAB TO COLLECT JPM [POC] QIDACANDBED 04/18/20 21:00 GLUCOSE POC LAB TO COLLECT JPM [POC] QIDACANDBED 04/19/20 07:30 GLUCOSE POC LAB TO COLLECT JPM [POC] QIDACANDBED - Plan Plan:: ASSESSMENT AND PLAN BILATERAL PNEUMONIA SECONDARY TO [id number] in respiratory status over the last 24 hours, requiring high level of supplemental oxygen. She has been placed on noninvasive positive pressure ventilation with good result, improved saturations and comfort -Decadron 6 mg IV daily -Furosemide 40 mg IV today -Continue to limit supplemental fluids -Convalescent plasma daily -Noninvasive positive pressure ventilation -Supportive care, she refuses prone ventilation -Saline lock IV HYPOXIA-secondary to pneumonia and COVID-19 -Supplemental oxygen as needed -Inhalers as needed CHRONIC KIDNEY DISEASE STAGE IV-renal function has remained stable through hospitalization -Closely monitor urine output and renal function TYPE 2 DIABETES MELLITUS -Continue usual dose of long-acting insulin -4 times daily glucometers -Moderate dose sliding scale Humalog MAINTENANCE ISSUES -DVT prophylaxis; Lovenox 30 mg subcu daily -GI prophylaxis; not indicated -Figueroa catheter; not indicated -Nutrition; consistent carbohydrate diet -Nicotine dependence; not required CODE STATUS-FULL CODE; I discussed this with the patient when she was seen in the emergency department and she is adamant about aggressive care including intubation if needed ADMISSION STATUS-patient will be admitted to inpatient status, expect at least a 2 night hospital stay for evaluation and management of problems as outlined above. At the time of this admission I do not reasonably expected evaluation and management of this problem will require more than a 96 hour hospital stay. DISPOSITION-anticipate discharge to home after the hospital stay. PRIMARY CARE PROVIDER-
[2020-04-16] MEDS: Dexamethasone 4 MG/ML SDV IVPUSH SCH (18:07)
[2020-04-16] MEDS: Insulin Glargine,Human Rec. Analog 100 Units/ML 3 ML Pen SUBCUT SCH (21:35)
[2020-04-16] MEDS: Enoxaparin 30 MG/0.3 ML Syringe SUBCUT SCH (21:36)
[2020-04-16] MEDS: Gabapentin 100 MG Cap PO SCH (21:37)
[2020-04-17] MEDS: Insulin Lispro 100 Unit/ML 3 ML KwikPen SUBCUT SCH ×4 (07:43→21:03)
[2020-04-17] MEDS: Aspirin 81 MG Tab.Chew PO SCH (09:23)
[2020-04-17] MEDS: LORazepam 2 MG/ML SDV IVPUSH PRN ×2 (09:27→19:29)
[2020-04-17] MEDS: Allopurinol 100 MG Tab PO SCH (09:27)
[2020-04-17] MEDS: Tamoxifen 10 MG Tab PO SCH (09:27)
--- NOTE | 2020-04-17 19:20 | PCM.PN ---
- General Info Date of Service: 04/17/20 Subjective Update: Ms. Barnett has remained stable over the last 24 hours since she was placed on BiPAP. Oxygenation has been adequate and respiratory rate much improved. She currently denies significant shortness of breath with current management. Functional Status: Reports: Urinating - Review of Systems General: Reports: Weakness, Fatigue. Denies: Fever, Chills Pulmonary: Reports: Shortness of Breath, Cough. Denies: Pleuritic Chest Pain, Sputum, Hemoptysis, Wheezing Cardiovascular: Reports: Dyspnea on Exertion. Denies: Chest Pain, Palpitations, Orthopnea, PND, Edema, Lightheadedness Gastrointestinal: Reports: No Symptoms Genitourinary: Reports: No Symptoms - Patient Data Vitals - Most Recent: Last Vital Signs Temp 97.3 F 04/17/20 11:55 Pulse 77 04/17/20 15:23 Resp 16 04/17/20 15:23 BP 134/56 L 04/17/20 11:55 Pulse Ox 94 L 04/17/20 15:23 Weight - Most Recent: 160 lb 11.2 oz I&O - Last 24 Hours: Intake & Output 04/17/20 04/17/20 04/17/20 06:59 14:59 22:59 Intake Total 300 Output Total 800 500 Balance -500 -500 Lab Results Last 24 Hours: Laboratory Results - last 24 hr 04/15/20 04/16/20 04/17/20 Range/Units 08:09 21:31 05:20 WBC 6.3 (4.5-11.0) K/uL RBC 3.49 (3.30-5.50) M/uL Hgb 11.1 L (12.0-15.0) g/dL Hct 34.4 L (36.0-48.0) % MCV 99 H (80-98) fL MCH 32 H (27-31) pg MCHC 32 (32-36) % Plt Count 187 (150-400) K/uL Neut % (Auto) 85 H (36-66) % Lymph % (Auto) 10 L (24-44) % Shelby % (Auto) 5 (2-6) % Eos % (Auto) 0 L (2-4) % Baso % (Auto) 0 (0-1) % PT (9.5-12.0) sec INR (0.80-1.20) APTT (27.0-36.0) sec D-Dimer, Quantitative (0.0-400.0) ng/mL Sodium (140-148) mmol/L Potassium (3.6-5.2) mmol/L Chloride (100-108) mmol/L Carbon Dioxide (21-32) mmol/L Anion Gap (5.0-14.0) mmol/L BUN (7-18) mg/dL Creatinine (0.6-1.0) mg/dL Est Cr Clr Drug Dosing mL/min Estimated GFR (MDRD) (>60) Glucose (74-106) mg/dL POC Glucose 260 H 223 H (74-106) MG/DL Calcium (8.5-10.1) mg/dL Ferritin (8-388) ng/ml Total Bilirubin (0.2-1.0) mg/dL AST (15-37) U/L ALT (12-78) U/L Alkaline Phosphatase (46-116) U/L C-Reactive Protein (0.0-0.3) mg/dL Total Protein (6.4-8.2) g/dL Albumin (3.4-5.0) g/dL Globulin (2.3-3.5) g/dL Albumin/Globulin Ratio (1.2-2.2) 04/17/20 04/17/20 04/17/20 Range/Units 05:20 05:20 05:20 WBC (4.5-11.0) K/uL RBC (3.30-5.50) M/uL Hgb (12.0-15.0) g/dL Hct (36.0-48.0) % MCV (80-98) fL MCH (27-31) pg MCHC (32-36) % Plt Count (150-400) K/uL Neut % (Auto) (36-66) % Lymph % (Auto) (24-44) % Shelby % (Auto) (2-6) % Eos % (Auto) (2-4) % Baso % (Auto) (0-1) % PT 11.5 (9.5-12.0) sec INR 1.06 (0.80-1.20) APTT 26.0 L (27.0-36.0) sec D-Dimer, Quantitative 2250 H (0.0-400.0) ng/mL Sodium 139 L (140-148) mmol/L Potassium 4.9 (3.6-5.2) mmol/L Chloride 106 (100-108) mmol/L Carbon Dioxide 26 (21-32) mmol/L Anion Gap 11.9 (5.0-14.0) mmol/L BUN 41 H (7-18) mg/dL Creatinine 1.5 H (0.6-1.0) mg/dL Est Cr Clr Drug Dosing 23.80 mL/min Estimated GFR (MDRD) 33 L (>60) Glucose 224 H (74-106) mg/dL POC Glucose (74-106) MG/DL Calcium 8.4 L (8.5-10.1) mg/dL Ferritin (8-388) ng/ml Total Bilirubin 0.5 (0.2-1.0) mg/dL AST 32 (15-37) U/L ALT 24 (12-78) U/L Alkaline Phosphatase 65 (46-116) U/L C-Reactive Protein (0.0-0.3) mg/dL Total Protein 5.9 L (6.4-8.2) g/dL Albumin 2.1 L (3.4-5.0) g/dL Globulin 3.8 H (2.3-3.5) g/dL Albumin/Globulin Ratio 0.6 L (1.2-2.2) 04/17/20 04/17/20 04/17/20 Range/Units 05:20 07:39 11:23 WBC (4.5-11.0) K/uL RBC (3.30-5.50) M/uL Hgb (12.0-15.0) g/dL Hct (36.0-48.0) % MCV (80-98) fL MCH (27-31) pg MCHC (32-36) % Plt Count (150-400) K/uL Neut % (Auto) (36-66) % Lymph % (Auto) (24-44) % Shelby % (Auto) (2-6) % Eos % (Auto) (2-4) % Baso % (Auto) (0-1) % PT (9.5-12.0) sec INR (0.80-1.20) APTT (27.0-36.0) sec D-Dimer, Quantitative (0.0-400.0) ng/mL Sodium (140-148) mmol/L Potassium (3.6-5.2) mmol/L Chloride (100-108) mmol/L Carbon Dioxide (21-32) mmol/L Anion Gap (5.0-14.0) mmol/L BUN (7-18) mg/dL Creatinine (0.6-1.0) mg/dL Est Cr Clr Drug Dosing mL/min Estimated GFR (MDRD) (>60) Glucose (74-106) mg/dL POC Glucose 258 H 209 H (74-106) MG/DL Calcium (8.5-10.1) mg/dL Ferritin 275 (8-388) ng/ml Total Bilirubin (0.2-1.0) mg/dL AST (15-37) U/L ALT (12-78) U/L Alkaline Phosphatase (46-116) U/L C-Reactive Protein 4.59 H (0.0-0.3) mg/dL Total Protein (6.4-8.2) g/dL Albumin (3.4-5.0) g/dL Globulin (2.3-3.5) g/dL Albumin/Globulin Ratio (1.2-2.2) 04/17/20 Range/Units 16:30 WBC (4.5-11.0) K/uL RBC (3.30-5.50) M/uL Hgb (12.0-15.0) g/dL Hct (36.0-48.0) % MCV (80-98) fL MCH (27-31) pg MCHC (32-36) % Plt Count (150-400) K/uL Neut % (Auto) (36-66) % Lymph % (Auto) (24-44) % Shelby % (Auto) (2-6) % Eos % (Auto) (2-4) % Baso % (Auto) (0-1) % PT (9.5-12.0) sec INR (0.80-1.20) APTT (27.0-36.0) sec D-Dimer, Quantitative (0.0-400.0) ng/mL Sodium (140-148) mmol/L Potassium (3.6-5.2) mmol/L Chloride (100-108) mmol/L Carbon Dioxide (21-32) mmol/L Anion Gap (5.0-14.0) mmol/L BUN (7-18) mg/dL Creatinine (0.6-1.0) mg/dL Est Cr Clr Drug Dosing mL/min Estimated GFR (MDRD) (>60) Glucose (74-106) mg/dL POC Glucose 218 H (74-106) MG/DL Calcium (8.5-10.1) mg/dL Ferritin (8-388) ng/ml Total Bilirubin (0.2-1.0) mg/dL AST (15-37) U/L ALT (12-78) U/L Alkaline Phosphatase (46-116) U/L C-Reactive Protein (0.0-0.3) mg/dL Total Protein (6.4-8.2) g/dL Albumin (3.4-5.0) g/dL Globulin (2.3-3.5) g/dL Albumin/Globulin Ratio (1.2-2.2) Med Orders - Current: Current Medications Acetaminophen (Tylenol) 650 mg PO Q4H PRN PRN Reason: Pain (Mild 1-3)/fever Last Admin: 04/15/20 20:09 Dose: 650 mg Documented by: Albuterol (Ventolin Hfa) 2 gm INH Q4H PRN PRN Reason: Shortness of Breath Last Admin: 04/16/20 21:37 Dose: 2 puff Documented by: Allopurinol (Zyloprim) 200 mg PO DAILY [facility] Last Admin: 04/17/20 09:27 Dose: 200 mg Documented by: Aspirin (Aspirin) 81 mg PO DAILY [facility] Last Admin: 04/17/20 09:23 Dose: 81 mg Documented by: Benzocaine/Menthol (Cepacol Sore Throat) 1 lozenge MUCMEM ASDIRECTED PRN PRN Reason: SORE THROAT Last Admin: 04/16/20 03:56 Dose: 1 lozenge Documented by: Dexamethasone (Dexamethasone) 6 mg IVPUSH Q24H [facility] Last Admin: 04/16/20 18:07 Dose: 6 mg Documented by: Dextrose (Glutose 15) 15 gm PO ONETIME PRN PRN Reason: Hypoglycemia Dextrose/Water (Dextrose 50% In Water) 50 ml IV ONETIME PRN PRN Reason: Hypoglycemia Enoxaparin Sodium (Lovenox) 30 mg SUBCUT BEDTIME [facility] Last Admin: 04/16/20 21:36 Dose: 30 mg Documented by: Gabapentin (Neurontin) 100 mg PO BEDTIME [facility] Last Admin: 04/16/20 21:37 Dose: 100 mg Documented by: Insulin Glargine (Lantus Solostar) 24 units SUBCUT BEDTIME [facility] Last Admin: 04/16/20 21:35 Dose: 24 units Documented by: Insulin Human Lispro (Humalog) 0 unit SUBCUT QIDACANDBED [facility]; Protocol Last Admin: 04/17/20 17:14 Dose: 4 units Documented by: Lorazepam (Ativan) 0.5 mg IVPUSH Q2H PRN PRN Reason: Anxiety Last Admin: 04/17/20 09:27 Dose: 0.5 mg Documented by: Melatonin (Melatonin) 9 mg PO BEDTIME PRN PRN Reason: Insomnia Last Admin: 04/15/20 20:09 Dose: 9 mg Documented by: Ondansetron HCl (Zofran) 4 mg IV Q4H PRN PRN Reason: Nausea/Vomiting Oxycodone HCl (Oxycodone) 5 mg PO Q4H PRN PRN Reason: Pain Last Admin: 04/15/20 21:50 Dose: 5 mg Documented by: Polyethylene Glycol (Miralax) 17 gm PO DAILY PRN PRN Reason: Constipation Sodium Chloride (Saline Flush) 10 ml FLUSH ASDIRECTED PRN PRN Reason: Keep Vein Open Last Admin: 04/15/20 09:45 Dose: 10 ml Documented by: Tamoxifen Citrate (Nolvadex) 20 mg PO DAILY [facility] Last Admin: 04/17/20 09:27 Dose: 20 mg Documented by: Discontinued Medications Acetaminophen (Tylenol) 650 mg PO ONCALL ONE Stop: 04/13/20 16:31 Last Admin: 04/13/20 17:02 Dose: 650 mg Documented by: Acetaminophen (Tylenol) 650 mg PO ONCALL ONE Stop: 04/14/20 14:31 Last Admin: 04/14/20 15:56 Dose: 650 mg Documented by: Acetaminophen (Tylenol) 650 mg PO ONCALL ONE Stop: 04/15/20 10:31 Last Admin: 04/15/20 09:44 Dose: 650 mg Documented by: Acetaminophen (Tylenol) 650 mg PO ONCALL ONE Stop: 04/16/20 09:01 Last Admin: 04/16/20 09:28 Dose: 650 mg Documented by: Albuterol (Proventil Neb Soln) 2.5 mg NEB Q4H PRN PRN Reason: Shortness Of Breath/wheezing Last Admin: 04/15/20 20:23 Dose: 2.5 mg Documented by: Benzocaine/Menthol (Cepacol Sore Throat) 1 lozenge MUCMEM ASDIRECTED PRN PRN Reason: SORE THROAT Benzocaine/Menthol (Cepacol Sore Throat) Confirm Administered Dose 1 lozenge .ROUTE .STK-MED ONE Stop: 04/12/20 21:32 Last Admin: 04/12/20 22:57 Dose: Not Given Documented by: Dexamethasone (Dexamethasone) 6 mg IVPUSH ONETIME ONE Stop: 04/11/20 17:50 Last Admin: 04/11/20 18:08 Dose: 6 mg Documented by: Dexamethasone (Dexamethasone) Confirm Administered Dose 4 mg .ROUTE .STK-MED ONE Stop: 04/11/20 18:01 Last Admin: 04/11/20 18:11 Dose: Not Given Documented by: Diphenhydramine HCl (Benadryl) 25 mg IVPUSH ONCALL ONE Stop: 04/13/20 16:31 Last Admin: 04/13/20 17:02 Dose: 25 mg Documented by: Diphenhydramine HCl (Benadryl) 25 mg IVPUSH ONCALL ONE Stop: 04/14/20 14:31 Last Admin: 04/14/20 15:56 Dose: 25 mg Documented by: Diphenhydramine HCl (Benadryl) 25 mg PO ONCALL ONE Stop: 04/15/20 10:31 Last Admin: 04/15/20 09:46 Dose: 25 mg Documented by: Diphenhydramine HCl (Benadryl) 25 mg PO ONCALL ONE Stop: 04/16/20 09:01 Last Admin: 04/16/20 09:28 Dose: 25 mg Documented by: Enoxaparin Sodium (Lovenox) 30 mg SUBCUT DAILY [facility] Last Admin: 04/11/20 21:39 Dose: 30 mg Documented by: Furosemide (Lasix) 40 mg IVPUSH NOW ONE Stop: 04/16/20 12:01 Last Admin: 04/16/20 12:26 Dose: 40 mg Documented by: Sodium Chloride (Normal Saline) 1,000 mls @ 1,000 mls/hr IV ASDIRECTED [facility] Last Admin: 04/11/20 17:14 Dose: 1,000 mls/hr Documented by: Sodium Chloride (Normal Saline) 1,000 mls @ 50 mls/hr IV ASDIRECTED [facility] Last Admin: 04/11/20 22:32 Dose: 50 mls/hr Documented by: Sodium Chloride (Normal Saline) 250 mls @ 20 mls/hr IV ASDIRECTED [facility] Last Admin: 04/13/20 17:55 Dose: 20 mls/hr Documented by: Insulin Glargine (Lantus Solostar) 26 units SUBCUT BEDTIME [facility] Last Admin: 04/11/20 23:35 Dose: Not Given Documented by: Insulin Glargine (Lantus Solostar) 24 units SUBCUT BEDTIME [facility] Last Admin: 04/11/20 22:33 Dose: 24 units Documented by: - Exam Quality Assessment: Supplemental Oxygen (BiPAP), DVT Prophylaxis General: Alert, Oriented, Cooperative, Moderate Distress Lungs: Decreased Breath Sounds, Rales. No: Crackles, Rhonchi, Wheezing Cardiovascular: Regular Rate, Regular Rhythm, No Murmurs GI/Abdominal Exam: Soft, Non-Tender, No Organomegaly, No Distention Extremities: Non-Tender, No Pedal Edema Sepsis Event Note - Evaluation Sepsis Screening Result: No Definite Risk - Focused Exam Vital Signs: Vital Signs Temp Pulse Resp BP Pulse Ox 04/17/20 15:23 77 16 94 L 04/17/20 14:12 92 L 04/17/20 11:55 97.3 F 73 18 134/56 L 94 L 04/17/20 07:20 95 - Problem List Review Problem List Initiated/Reviewed/Updated: Yes - My Orders Last 24 Hours: My Active Orders 04/17/20 21:00 GLUCOSE POC LAB TO COLLECT JPM [POC] QIDACANDBED 04/18/20 05:00 CBC WITH AUTO DIFF [HEME] Timed COMPREHENSIVE METABOLIC PN,CMP [CHEM] Timed 04/18/20 05:11 CRP [C-REACTIVE PROTEIN] [CHEM] AM D Dimer [D-DIMER QUANTITATIVE] [COAG] AM FERRITIN [CHEM] AM 04/18/20 07:30 GLUCOSE POC LAB TO COLLECT JPM [POC] QIDACANDBED 04/18/20 11:30 GLUCOSE POC LAB TO COLLECT JPM [POC] QIDACANDBED 04/18/20 16:30 GLUCOSE POC LAB TO COLLECT JPM [POC] QIDACANDBED 04/18/20 21:00 GLUCOSE POC LAB TO COLLECT JPM [POC] QIDACANDBED 04/19/20 07:30 GLUCOSE POC LAB TO COLLECT JPM [POC] QIDACANDBED - Plan Plan:: ASSESSMENT AND PLAN BILATERAL PNEUMONIA SECONDARY TO [id number] since she was placed on BiPAP yesterday with adequate oxygenation and improvement in respiratory rate -Decadron 6 mg IV daily, day is day 7 of 10 -Furosemide 40 mg IV today -Noninvasive positive pressure ventilation -Supportive care, she refuses prone ventilation -Saline lock IV HYPOXIA-secondary to pneumonia and COVID-19 -Supplemental oxygen as needed -Inhalers as needed CHRONIC KIDNEY DISEASE STAGE IV-renal function has remained stable through hospitalization -Closely monitor urine output and renal function TYPE 2 DIABETES MELLITUS -Continue usual dose of long-acting insulin -4 times daily glucometers -Moderate dose sliding scale Humalog MAINTENANCE ISSUES -DVT prophylaxis; Lovenox 30 mg subcu daily -GI prophylaxis; not indicated -Figueroa catheter; not indicated -Nutrition; consistent carbohydrate diet -Nicotine dependence; not required CODE STATUS-FULL CODE; I discussed this with the patient when she was seen in the emergency department and she is adamant about aggressive care including intubation if needed ADMISSION STATUS-patient will be admitted to inpatient status, expect at least a 2 night hospital stay for evaluation and management of problems as outlined above. At the time of this admission I do not reasonably expected evaluation and management of this problem will require more than a 96 hour hospital stay. DISPOSITION-anticipate discharge to home after the hospital stay. PRIMARY CARE PROVIDER-
[2020-04-17] MEDS: Dexamethasone 4 MG/ML SDV IVPUSH SCH (19:30)
[2020-04-17] MEDS: Enoxaparin 30 MG/0.3 ML Syringe SUBCUT SCH (21:02)
[2020-04-17] MEDS: Insulin Glargine,Human Rec. Analog 100 Units/ML 3 ML Pen SUBCUT SCH (21:02)
[2020-04-17] MEDS: Gabapentin 100 MG Cap PO SCH (21:04)
[2020-04-18] MEDS: Albuterol 8 GM Inhaler INH PRN (00:27)
[2020-04-18] MEDS: LORazepam 2 MG/ML SDV IVPUSH PRN ×2 (00:31→07:55)
[2020-04-18] MEDS: Insulin Lispro 100 Unit/ML 3 ML KwikPen SUBCUT SCH ×4 (07:44→20:55)
[2020-04-18] MEDS: Aspirin 81 MG Tab.Chew PO SCH (08:02)
[2020-04-18] MEDS: Allopurinol 100 MG Tab PO SCH (08:02)
[2020-04-18] MEDS: Tamoxifen 10 MG Tab PO SCH (08:02)
--- NOTE | 2020-04-18 12:06 | PCM.PN ---
- General Info Date of Service: 04/18/20 Admission Dx/Problem (Free Text): 1. COVID 19 PNA 2. Hypoxia Subjective Update: Patient seen this AM. States she is still somewhat dyspneic and out of sorts. Per RN patient will wear BiPAP about 70% of the time. She is requiring atarax for anxiety. Otherwise patient is stable. She is not a candidate for remdesivir d/t Stage IV CKD and CrCl of 25. She has gotten dexamethasone and convalescent serum. No other issues noted at this time. Low threshhold for transfer if she deteriorates. She is a FULL CODE Functional Status: Reports: Pain Controlled, Tolerating Diet - Review of Systems General: Reports: No Symptoms HEENT: Reports: No Symptoms Pulmonary: Reports: Shortness of Breath, Cough Cardiovascular: Reports: No Symptoms Gastrointestinal: Reports: No Symptoms Musculoskeletal: Reports: No Symptoms Neurological: Reports: No Symptoms Psychiatric: Reports: Confusion (Occasional confusion noted) - Patient Data Vitals - Most Recent: Last Vital Signs Temp 98.4 F 04/18/20 11:35 Pulse 73 04/18/20 11:35 Resp 22 H 04/18/20 11:35 BP 136/63 04/18/20 11:35 Pulse Ox 94 L 04/18/20 11:35 Weight - Most Recent: 160 lb 11.2 oz I&O - Last 24 Hours: Intake & Output 04/17/20 04/18/20 04/18/20 22:59 06:59 14:59 Intake Total 300 360 Output Total 500 300 Balance -500 300 60 Lab Results Last 24 Hours: Laboratory Results - last 24 hr 04/17/20 04/17/20 04/18/20 Range/Units 16:30 21:00 05:05 WBC 7.1 (4.5-11.0) K/uL RBC 3.47 (3.30-5.50) M/uL Hgb 10.9 L (12.0-15.0) g/dL Hct 34.1 L (36.0-48.0) % MCV 98 (80-98) fL MCH 31 (27-31) pg MCHC 32 (32-36) % Plt Count 188 (150-400) K/uL Neut % (Auto) 88 H (36-66) % Lymph % (Auto) 8 L (24-44) % [place] % (Auto) 4 (2-6) % Eos % (Auto) 0 L (2-4) % Baso % (Auto) 0 (0-1) % D-Dimer, Quantitative (0.0-400.0) ng/mL Sodium (140-148) mmol/L Potassium (3.6-5.2) mmol/L Chloride (100-108) mmol/L Carbon Dioxide (21-32) mmol/L Anion Gap (5.0-14.0) mmol/L BUN (7-18) mg/dL Creatinine (0.6-1.0) mg/dL Est Cr Clr Drug Dosing mL/min Estimated GFR (MDRD) (>60) Glucose (74-106) mg/dL POC Glucose 218 H 194 H (74-106) MG/DL Calcium (8.5-10.1) mg/dL Ferritin (8-388) ng/ml Total Bilirubin (0.2-1.0) mg/dL AST (15-37) U/L ALT (12-78) U/L Alkaline Phosphatase (46-116) U/L C-Reactive Protein (0.0-0.3) mg/dL Total Protein (6.4-8.2) g/dL Albumin (3.4-5.0) g/dL Globulin (2.3-3.5) g/dL Albumin/Globulin Ratio (1.2-2.2) 04/18/20 04/18/20 04/18/20 Range/Units 05:05 05:05 05:05 WBC (4.5-11.0) K/uL RBC (3.30-5.50) M/uL Hgb (12.0-15.0) g/dL Hct (36.0-48.0) % MCV (80-98) fL MCH (27-31) pg MCHC (32-36) % Plt Count (150-400) K/uL Neut % (Auto) (36-66) % Lymph % (Auto) (24-44) % [place] % (Auto) (2-6) % Eos % (Auto) (2-4) % Baso % (Auto) (0-1) % D-Dimer, Quantitative 2440 H (0.0-400.0) ng/mL Sodium 137 L (140-148) mmol/L Potassium 5.1 (3.6-5.2) mmol/L Chloride 105 (100-108) mmol/L Carbon Dioxide 25 (21-32) mmol/L Anion Gap 12.1 (5.0-14.0) mmol/L BUN 46 H (7-18) mg/dL Creatinine 1.4 H (0.6-1.0) mg/dL Est Cr Clr Drug Dosing 25.50 mL/min Estimated GFR (MDRD) 35 L (>60) Glucose 278 H (74-106) mg/dL POC Glucose (74-106) MG/DL Calcium 8.3 L (8.5-10.1) mg/dL Ferritin 272 (8-388) ng/ml Total Bilirubin 0.5 (0.2-1.0) mg/dL AST 43 H (15-37) U/L ALT 27 (12-78) U/L Alkaline Phosphatase 64 (46-116) U/L C-Reactive Protein 3.25 H (0.0-0.3) mg/dL Total Protein 5.7 L (6.4-8.2) g/dL Albumin 1.9 L (3.4-5.0) g/dL Globulin 3.8 H (2.3-3.5) g/dL Albumin/Globulin Ratio 0.5 L (1.2-2.2) 04/18/20 04/18/20 Range/Units 07:31 11:30 WBC (4.5-11.0) K/uL RBC (3.30-5.50) M/uL Hgb (12.0-15.0) g/dL Hct (36.0-48.0) % MCV (80-98) fL MCH (27-31) pg MCHC (32-36) % Plt Count (150-400) K/uL Neut % (Auto) (36-66) % Lymph % (Auto) (24-44) % [place] % (Auto) (2-6) % Eos % (Auto) (2-4) % Baso % (Auto) (0-1) % D-Dimer, Quantitative (0.0-400.0) ng/mL Sodium (140-148) mmol/L Potassium (3.6-5.2) mmol/L Chloride (100-108) mmol/L Carbon Dioxide (21-32) mmol/L Anion Gap (5.0-14.0) mmol/L BUN (7-18) mg/dL Creatinine (0.6-1.0) mg/dL Est Cr Clr Drug Dosing mL/min Estimated GFR (MDRD) (>60) Glucose (74-106) mg/dL POC Glucose 272 H 303 H (74-106) MG/DL Calcium (8.5-10.1) mg/dL Ferritin (8-388) ng/ml Total Bilirubin (0.2-1.0) mg/dL AST (15-37) U/L ALT (12-78) U/L Alkaline Phosphatase (46-116) U/L C-Reactive Protein (0.0-0.3) mg/dL Total Protein (6.4-8.2) g/dL Albumin (3.4-5.0) g/dL Globulin (2.3-3.5) g/dL Albumin/Globulin Ratio (1.2-2.2) Med Orders - Current: Current Medications Acetaminophen (Tylenol) 650 mg PO Q4H PRN PRN Reason: Pain (Mild 1-3)/fever Last Admin: 04/15/20 20:09 Dose: 650 mg Documented by: Albuterol (Ventolin Hfa) 2 gm INH Q4H PRN PRN Reason: Shortness of Breath Last Admin: 04/18/20 00:27 Dose: 2 puff Documented by: Allopurinol (Zyloprim) 200 mg PO DAILY [facility] Last Admin: 04/18/20 08:02 Dose: 200 mg Documented by: Aspirin (Aspirin) 81 mg PO DAILY [facility] Last Admin: 04/18/20 08:02 Dose: 81 mg Documented by: Benzocaine/Menthol (Cepacol Sore Throat) 1 lozenge MUCMEM ASDIRECTED PRN PRN Reason: SORE THROAT Last Admin: 04/16/20 03:56 Dose: 1 lozenge Documented by: Dexamethasone (Dexamethasone) 6 mg IVPUSH Q24H [facility] Last Admin: 04/17/20 19:30 Dose: 6 mg Documented by: Dextrose (Glutose 15) 15 gm PO ONETIME PRN PRN Reason: Hypoglycemia Dextrose/Water (Dextrose 50% In Water) 50 ml IV ONETIME PRN PRN Reason: Hypoglycemia Enoxaparin Sodium (Lovenox) 30 mg SUBCUT BEDTIME [facility] Last Admin: 04/17/20 21:02 Dose: 30 mg Documented by: Gabapentin (Neurontin) 100 mg PO BEDTIME [facility] Last Admin: 04/17/20 21:04 Dose: 100 mg Documented by: Insulin Glargine (Lantus Solostar) 24 units SUBCUT BEDTIME [facility] Last Admin: 04/17/20 21:02 Dose: 24 units Documented by: Insulin Human Lispro (Humalog) 0 unit SUBCUT QIDACANDBED [facility]; Protocol Last Admin: 04/18/20 07:44 Dose: 6 units Documented by: Lorazepam (Ativan) 0.5 mg IVPUSH Q2H PRN PRN Reason: Anxiety Last Admin: 04/18/20 07:55 Dose: 0.5 mg Documented by: Melatonin (Melatonin) 9 mg PO BEDTIME PRN PRN Reason: Insomnia Last Admin: 04/15/20 20:09 Dose: 9 mg Documented by: Ondansetron HCl (Zofran) 4 mg IV Q4H PRN PRN Reason: Nausea/Vomiting Oxycodone HCl (Oxycodone) 5 mg PO Q4H PRN PRN Reason: Pain Last Admin: 04/15/20 21:50 Dose: 5 mg Documented by: Polyethylene Glycol (Miralax) 17 gm PO DAILY PRN PRN Reason: Constipation Sodium Chloride (Saline Flush) 10 ml FLUSH ASDIRECTED PRN PRN Reason: Keep Vein Open Last Admin: 04/15/20 09:45 Dose: 10 ml Documented by: Tamoxifen Citrate (Nolvadex) 20 mg PO DAILY [facility] Last Admin: 04/18/20 08:02 Dose: 20 mg Documented by: Discontinued Medications Acetaminophen (Tylenol) 650 mg PO ONCALL ONE Stop: 04/13/20 16:31 Last Admin: 04/13/20 17:02 Dose: 650 mg Documented by: Acetaminophen (Tylenol) 650 mg PO ONCALL ONE Stop: 04/14/20 14:31 Last Admin: 04/14/20 15:56 Dose: 650 mg Documented by: Acetaminophen (Tylenol) 650 mg PO ONCALL ONE Stop: 04/15/20 10:31 Last Admin: 04/15/20 09:44 Dose: 650 mg Documented by: Acetaminophen (Tylenol) 650 mg PO ONCALL ONE Stop: 04/16/20 09:01 Last Admin: 04/16/20 09:28 Dose: 650 mg Documented by: Albuterol (Proventil Neb Soln) 2.5 mg NEB Q4H PRN PRN Reason: Shortness Of Breath/wheezing Last Admin: 04/15/20 20:23 Dose: 2.5 mg Documented by: Benzocaine/Menthol (Cepacol Sore Throat) 1 lozenge MUCMEM ASDIRECTED PRN PRN Reason: SORE THROAT Benzocaine/Menthol (Cepacol Sore Throat) Confirm Administered Dose 1 lozenge .ROUTE .STK-MED ONE Stop: 04/12/20 21:32 Last Admin: 04/12/20 22:57 Dose: Not Given Documented by: Dexamethasone (Dexamethasone) 6 mg IVPUSH ONETIME ONE Stop: 04/11/20 17:50 Last Admin: 04/11/20 18:08 Dose: 6 mg Documented by: Dexamethasone (Dexamethasone) Confirm Administered Dose 4 mg .ROUTE .STK-MED ONE Stop: 04/11/20 18:01 Last Admin: 04/11/20 18:11 Dose: Not Given Documented by: Diphenhydramine HCl (Benadryl) 25 mg IVPUSH ONCALL ONE Stop: 04/13/20 16:31 Last Admin: 04/13/20 17:02 Dose: 25 mg Documented by: Diphenhydramine HCl (Benadryl) 25 mg IVPUSH ONCALL ONE Stop: 04/14/20 14:31 Last Admin: 04/14/20 15:56 Dose: 25 mg Documented by: Diphenhydramine HCl (Benadryl) 25 mg PO ONCALL ONE Stop: 04/15/20 10:31 Last Admin: 04/15/20 09:46 Dose: 25 mg Documented by: Diphenhydramine HCl (Benadryl) 25 mg PO ONCALL ONE Stop: 04/16/20 09:01 Last Admin: 04/16/20 09:28 Dose: 25 mg Documented by: Enoxaparin Sodium (Lovenox) 30 mg SUBCUT DAILY [facility] Last Admin: 04/11/20 21:39 Dose: 30 mg Documented by: Furosemide (Lasix) 40 mg IVPUSH NOW ONE Stop: 04/16/20 12:01 Last Admin: 04/16/20 12:26 Dose: 40 mg Documented by: Sodium Chloride (Normal Saline) 1,000 mls @ 1,000 mls/hr IV ASDIRECTED [facility] Last Admin: 04/11/20 17:14 Dose: 1,000 mls/hr Documented by: Sodium Chloride (Normal Saline) 1,000 mls @ 50 mls/hr IV ASDIRECTED [facility] Last Admin: 04/11/20 22:32 Dose: 50 mls/hr Documented by: Sodium Chloride (Normal Saline) 250 mls @ 20 mls/hr IV ASDIRECTED [facility] Last Admin: 04/13/20 17:55 Dose: 20 mls/hr Documented by: Insulin Glargine (Lantus Solostar) 26 units SUBCUT BEDTIME [facility] Last Admin: 04/11/20 23:35 Dose: Not Given Documented by: Insulin Glargine (Lantus Solostar) 24 units SUBCUT BEDTIME [facility] Last Admin: 04/11/20 22:33 Dose: 24 units Documented by: - Exam Quality Assessment: Supplemental Oxygen, DVT Prophylaxis General: Alert, Oriented, Cooperative, No Acute Distress Lungs: Crackles Cardiovascular: Regular Rate, Regular Rhythm GI/Abdominal Exam: Normal Bowel Sounds, Soft, Non-Tender Psy/Mental Status: Alert, Normal Affect, Normal Mood Sepsis Event Note - Evaluation Sepsis Screening Result: No Definite Risk - Focused Exam Vital Signs: Vital Signs Temp Pulse Resp BP Pulse Ox 04/18/20 11:35 98.4 F 73 22 H 136/63 94 L 04/18/20 07:58 98.1 F 78 25 H 137/54 L 91 L 04/18/20 07:30 83 L 04/18/20 07:19 88 L 04/18/20 02:06 99.0 F 84 16 124/54 L 92 L 04/18/20 01:28 92 L - Problem List Review Problem List Initiated/Reviewed/Updated: Yes - Plan Plan:: ASSESSMENT AND PLAN BILATERAL PNEUMONIA SECONDARY TO [id number] since she was placed on BiPAP yesterday with adequate oxygenation and improvement in respiratory rate -Decadron 6 mg IV daily, day is day 7 of 10 -Furosemide 40 mg IV today -Noninvasive positive pressure ventilation -This does need to be used as consistently as possible until her status improves -Supportive care, she refuses prone ventilation -Saline lock IV HYPOXIA-secondary to pneumonia and COVID-19 -Supplemental oxygen as needed -Inhalers as needed CHRONIC KIDNEY DISEASE STAGE IV-renal function has remained stable through hospitalization -Closely monitor urine output and renal function TYPE 2 DIABETES MELLITUS -Continue usual dose of long-acting insulin -4 times daily glucometers -Moderate dose sliding scale Humalog MAINTENANCE ISSUES -DVT prophylaxis; Lovenox 30 mg subcu daily -GI prophylaxis; not indicated -Figueroa catheter; not indicated -Nutrition; consistent carbohydrate diet -Nicotine dependence; not required CODE STATUS-FULL CODE; I discussed this with the patient when she was seen in the emergency department and she is adamant about aggressive care including intubation if needed ADMISSION STATUS-patient will be admitted to inpatient status, expect at least a 2 night hospital stay for evaluation and management of problems as outlined abo ve. At the time of this admission I do not reasonably expected evaluation and management of this problem will require more than a 96 hour hospital stay. DISPOSITION-anticipate discharge to home after the hospital stay. PRIMARY CARE PROVIDER-
[2020-04-18] MEDS: Dexamethasone 4 MG/ML SDV IVPUSH SCH (20:13)
[2020-04-18] MEDS: Enoxaparin 30 MG/0.3 ML Syringe SUBCUT SCH (20:15)
[2020-04-18] MEDS: Gabapentin 100 MG Cap PO SCH (20:15)
[2020-04-18] MEDS: Insulin Glargine,Human Rec. Analog 100 Units/ML 3 ML Pen SUBCUT SCH (20:56)
[2020-04-19] MEDS: Insulin Lispro 100 Unit/ML 3 ML KwikPen SUBCUT SCH ×4 (08:35→20:57)
[2020-04-19] MEDS: Tamoxifen 10 MG Tab PO SCH (08:40)
[2020-04-19] MEDS: Allopurinol 100 MG Tab PO SCH (08:40)
[2020-04-19] MEDS: Aspirin 81 MG Tab.Chew PO SCH (08:40)
--- NOTE | 2020-04-19 13:13 | PCM.PN ---
- General Info Date of Service: 04/19/20 Subjective Update: Patient seen on the COVID 19 unit today. Continues to need high flow oxygen at 15L as well as intermittent BiPAP. The patient is using this about 70-80% of the time. We did have a conversation about the importance of continuing to use the BiPAP as often as possible to avoid the need for iPPV and transfer out of [place]. The patient was willing to try harder to better tolerate the BiPAP. Functional Status: Reports: Pain Controlled - Review of Systems General: Reports: No Symptoms HEENT: Reports: No Symptoms Pulmonary: Reports: No Symptoms Cardiovascular: Reports: Dyspnea on Exertion, Orthopnea Gastrointestinal: Reports: No Symptoms Musculoskeletal: Reports: No Symptoms Skin: Reports: No Symptoms Neurological: Reports: No Symptoms Psychiatric: Reports: No Symptoms - Patient Data Vitals - Most Recent: Last Vital Signs Temp 98.1 F 04/19/20 11:20 Pulse 78 04/19/20 11:20 Resp 16 04/19/20 11:20 BP 133/58 L 04/19/20 11:20 Pulse Ox 96 04/19/20 12:41 Weight - Most Recent: 160 lb 11.2 oz I&O - Last 24 Hours: Intake & Output 04/18/20 04/19/20 04/19/20 22:59 06:59 14:59 Intake Total 720 592 Output Total 350 450 400 Balance 370 -450 192 Lab Results Last 24 Hours: Laboratory Results - last 24 hr 04/18/20 04/18/20 04/19/20 Range/Units 16:15 20:53 07:30 WBC (4.5-11.0) K/uL RBC (3.30-5.50) M/uL Hgb (12.0-15.0) g/dL Hct (36.0-48.0) % MCV (80-98) fL MCH (27-31) pg MCHC (32-36) % Plt Count (150-400) K/uL Neut % (Auto) (36-66) % Lymph % (Auto) (24-44) % Blanco % (Auto) (2-6) % Eos % (Auto) (2-4) % Baso % (Auto) (0-1) % D-Dimer, Quantitative (0.0-400.0) ng/mL Sodium (140-148) mmol/L Potassium (3.6-5.2) mmol/L Chloride (100-108) mmol/L Carbon Dioxide (21-32) mmol/L Anion Gap (5.0-14.0) mmol/L BUN (7-18) mg/dL Creatinine (0.6-1.0) mg/dL Est Cr Clr Drug Dosing mL/min Estimated GFR (MDRD) (>60) Glucose (74-106) mg/dL POC Glucose 286 H 254 H 294 H (74-106) MG/DL Calcium (8.5-10.1) mg/dL Ferritin (8-388) ng/ml Total Bilirubin (0.2-1.0) mg/dL AST (15-37) U/L ALT (12-78) U/L Alkaline Phosphatase (46-116) U/L C-Reactive Protein (0.0-0.3) mg/dL Total Protein (6.4-8.2) g/dL Albumin (3.4-5.0) g/dL Globulin (2.3-3.5) g/dL Albumin/Globulin Ratio (1.2-2.2) 04/19/20 04/19/20 04/19/20 Range/Units 09:20 09:20 09:20 WBC 7.9 (4.5-11.0) K/uL RBC 3.65 (3.30-5.50) M/uL Hgb 11.4 L (12.0-15.0) g/dL Hct 35.4 L (36.0-48.0) % MCV 97 (80-98) fL MCH 31 (27-31) pg MCHC 32 (32-36) % Plt Count 213 (150-400) K/uL Neut % (Auto) 88 H (36-66) % Lymph % (Auto) 9 L (24-44) % Blanco % (Auto) 4 (2-6) % Eos % (Auto) 0 L (2-4) % Baso % (Auto) 0 (0-1) % D-Dimer, Quantitative 2110 H (0.0-400.0) ng/mL Sodium (140-148) mmol/L Potassium (3.6-5.2) mmol/L Chloride (100-108) mmol/L Carbon Dioxide (21-32) mmol/L Anion Gap (5.0-14.0) mmol/L BUN (7-18) mg/dL Creatinine (0.6-1.0) mg/dL Est Cr Clr Drug Dosing mL/min Estimated GFR (MDRD) (>60) Glucose (74-106) mg/dL POC Glucose (74-106) MG/DL Calcium (8.5-10.1) mg/dL Ferritin 291 (8-388) ng/ml Total Bilirubin (0.2-1.0) mg/dL AST (15-37) U/L ALT (12-78) U/L Alkaline Phosphatase (46-116) U/L C-Reactive Protein 3.52 H (0.0-0.3) mg/dL Total Protein (6.4-8.2) g/dL Albumin (3.4-5.0) g/dL Globulin (2.3-3.5) g/dL Albumin/Globulin Ratio (1.2-2.2) 04/19/20 04/19/20 Range/Units 09:20 11:30 WBC (4.5-11.0) K/uL RBC (3.30-5.50) M/uL Hgb (12.0-15.0) g/dL Hct (36.0-48.0) % MCV (80-98) fL MCH (27-31) pg MCHC (32-36) % Plt Count (150-400) K/uL Neut % (Auto) (36-66) % Lymph % (Auto) (24-44) % Blanco % (Auto) (2-6) % Eos % (Auto) (2-4) % Baso % (Auto) (0-1) % D-Dimer, Quantitative (0.0-400.0) ng/mL Sodium 136 L (140-148) mmol/L Potassium 4.8 (3.6-5.2) mmol/L Chloride 102 (100-108) mmol/L Carbon Dioxide 23 (21-32) mmol/L Anion Gap 15.8 H (5.0-14.0) mmol/L BUN 43 H (7-18) mg/dL Creatinine 1.3 H (0.6-1.0) mg/dL Est Cr Clr Drug Dosing 27.46 mL/min Estimated GFR (MDRD) 39 L (>60) Glucose 264 H (74-106) mg/dL POC Glucose 297 H (74-106) MG/DL Calcium 8.4 L (8.5-10.1) mg/dL Ferritin (8-388) ng/ml Total Bilirubin 0.6 (0.2-1.0) mg/dL AST 43 H (15-37) U/L ALT 29 (12-78) U/L Alkaline Phosphatase 65 (46-116) U/L C-Reactive Protein (0.0-0.3) mg/dL Total Protein 5.9 L (6.4-8.2) g/dL Albumin 2.0 L (3.4-5.0) g/dL Globulin 3.9 H (2.3-3.5) g/dL Albumin/Globulin Ratio 0.5 L (1.2-2.2) Med Orders - Current: Current Medications Acetaminophen (Tylenol) 650 mg PO Q4H PRN PRN Reason: Pain (Mild 1-3)/fever Last Admin: 04/15/20 20:09 Dose: 650 mg Documented by: Albuterol (Ventolin Hfa) 2 gm INH Q4H PRN PRN Reason: Shortness of Breath Last Admin: 04/18/20 00:27 Dose: 2 puff Documented by: Allopurinol (Zyloprim) 200 mg PO DAILY [facility] Last Admin: 04/19/20 08:40 Dose: 200 mg Documented by: Aspirin (Aspirin) 81 mg PO DAILY [facility] Last Admin: 04/19/20 08:40 Dose: 81 mg Documented by: Benzocaine/Menthol (Cepacol Sore Throat) 1 lozenge MUCMEM ASDIRECTED PRN PRN Reason: SORE THROAT Last Admin: 04/16/20 03:56 Dose: 1 lozenge Documented by: Dexamethasone (Dexamethasone) 6 mg IVPUSH Q24H [facility] Last Admin: 04/18/20 20:13 Dose: 6 mg Documented by: Dextrose (Glutose 15) 15 gm PO ONETIME PRN PRN Reason: Hypoglycemia Dextrose/Water (Dextrose 50% In Water) 50 ml IV ONETIME PRN PRN Reason: Hypoglycemia Enoxaparin Sodium (Lovenox) 30 mg SUBCUT BEDTIME [facility] Last Admin: 04/18/20 20:15 Dose: 30 mg Documented by: Gabapentin (Neurontin) 100 mg PO BEDTIME [facility] Last Admin: 04/18/20 20:15 Dose: 100 mg Documented by: Insulin Glargine (Lantus Solostar) 24 units SUBCUT BEDTIME [facility] Last Admin: 04/18/20 20:56 Dose: 24 units Documented by: Insulin Human Lispro (Humalog) 0 unit SUBCUT QIDACANDBED [facility]; Protocol Last Admin: 04/19/20 12:39 Dose: 6 units Documented by: Lorazepam (Ativan) 0.5 mg IVPUSH Q2H PRN PRN Reason: Anxiety Last Admin: 04/18/20 07:55 Dose: 0.5 mg Documented by: Melatonin (Melatonin) 9 mg PO BEDTIME PRN PRN Reason: Insomnia Last Admin: 04/15/20 20:09 Dose: 9 mg Documented by: Ondansetron HCl (Zofran) 4 mg IV Q4H PRN PRN Reason: Nausea/Vomiting Oxycodone HCl (Oxycodone) 5 mg PO Q4H PRN PRN Reason: Pain Last Admin: 04/15/20 21:50 Dose: 5 mg Documented by: Polyethylene Glycol (Miralax) 17 gm PO DAILY PRN PRN Reason: Constipation Sodium Chloride (Saline Flush) 10 ml FLUSH ASDIRECTED PRN PRN Reason: Keep Vein Open Last Admin: 04/15/20 09:45 Dose: 10 ml Documented by: Tamoxifen Citrate (Nolvadex) 20 mg PO DAILY [facility] Last Admin: 04/19/20 08:40 Dose: 20 mg Documented by: Discontinued Medications Acetaminophen (Tylenol) 650 mg PO ONCALL ONE Stop: 04/13/20 16:31 Last Admin: 04/13/20 17:02 Dose: 650 mg Documented by: Acetaminophen (Tylenol) 650 mg PO ONCALL ONE Stop: 04/14/20 14:31 Last Admin: 04/14/20 15:56 Dose: 650 mg Documented by: Acetaminophen (Tylenol) 650 mg PO ONCALL ONE Stop: 04/15/20 10:31 Last Admin: 04/15/20 09:44 Dose: 650 mg Documented by: Acetaminophen (Tylenol) 650 mg PO ONCALL ONE Stop: 04/16/20 09:01 Last Admin: 04/16/20 09:28 Dose: 650 mg Documented by: Albuterol (Proventil Neb Soln) 2.5 mg NEB Q4H PRN PRN Reason: Shortness Of Breath/wheezing Last Admin: 04/15/20 20:23 Dose: 2.5 mg Documented by: Benzocaine/Menthol (Cepacol Sore Throat) 1 lozenge MUCMEM ASDIRECTED PRN PRN Reason: SORE THROAT Benzocaine/Menthol (Cepacol Sore Throat) Confirm Administered Dose 1 lozenge .ROUTE .STK-MED ONE Stop: 04/12/20 21:32 Last Admin: 04/12/20 22:57 Dose: Not Given Documented by: Dexamethasone (Dexamethasone) 6 mg IVPUSH ONETIME ONE Stop: 04/11/20 17:50 Last Admin: 04/11/20 18:08 Dose: 6 mg Documented by: Dexamethasone (Dexamethasone) Confirm Administered Dose 4 mg .ROUTE .STK-MED ONE Stop: 04/11/20 18:01 Last Admin: 04/11/20 18:11 Dose: Not Given Documented by: Diphenhydramine HCl (Benadryl) 25 mg IVPUSH ONCALL ONE Stop: 04/13/20 16:31 Last Admin: 04/13/20 17:02 Dose: 25 mg Documented by: Diphenhydramine HCl (Benadryl) 25 mg IVPUSH ONCALL ONE Stop: 04/14/20 14:31 Last Admin: 04/14/20 15:56 Dose: 25 mg Documented by: Diphenhydramine HCl (Benadryl) 25 mg PO ONCALL ONE Stop: 04/15/20 10:31 Last Admin: 04/15/20 09:46 Dose: 25 mg Documented by: Diphenhydramine HCl (Benadryl) 25 mg PO ONCALL ONE Stop: 04/16/20 09:01 Last Admin: 04/16/20 09:28 Dose: 25 mg Documented by: Enoxaparin Sodium (Lovenox) 30 mg SUBCUT DAILY [facility] Last Admin: 04/11/20 21:39 Dose: 30 mg Documented by: Furosemide (Lasix) 40 mg IVPUSH NOW ONE Stop: 04/16/20 12:01 Last Admin: 04/16/20 12:26 Dose: 40 mg Documented by: Sodium Chloride (Normal Saline) 1,000 mls @ 1,000 mls/hr IV ASDIRECTED NABILA Last Admin: 04/11/20 17:14 Dose: 1,000 mls/hr Documented by: Sodium Chloride (Normal Saline) 1,000 mls @ 50 mls/hr IV ASDIRECTED [facility] Last Admin: 04/11/20 22:32 Dose: 50 mls/hr Documented by: Sodium Chloride (Normal Saline) 250 mls @ 20 mls/hr IV ASDIRECTED [facility] Last Admin: 04/13/20 17:55 Dose: 20 mls/hr Documented by: Insulin Glargine (Lantus Solostar) 26 units SUBCUT BEDTIME [facility] Last Admin: 04/11/20 23:35 Dose: Not Given Documented by: Insulin Glargine (Lantus Solostar) 24 units SUBCUT BEDTIME [facility] Last Admin: 04/11/20 22:33 Dose: 24 units Documented by: - Exam Quality Assessment: Supplemental Oxygen, DVT Prophylaxis General: Alert, Oriented, Cooperative Lungs: Clear to Auscultation, Normal Respiratory Effort Cardiovascular: Regular Rate, Regular Rhythm GI/Abdominal Exam: Normal Bowel Sounds, Soft, Non-Tender Sepsis Event Note - Evaluation Sepsis Screening Result: No Definite Risk - Focused Exam Vital Signs: Vital Signs Temp Pulse Resp BP Pulse Ox 04/19/20 12:41 96 04/19/20 11:20 98.1 F 78 16 133/58 L 04/19/20 08:02 90 L 04/19/20 07:50 75 L 04/19/20 07:42 98.6 F 78 18 139/67 88 L 04/19/20 02:36 97.5 F 82 24 H 143/72 H 89 L 04/19/20 01:23 89 L - Problem List Review Problem List Initiated/Reviewed/Updated: Yes - My Orders Last 24 Hours: My Active Orders 04/19/20 16:30 GLUCOSE POC LAB TO COLLECT JPM [POC] QIDACANDBED 04/19/20 21:00 GLUCOSE POC LAB TO COLLECT JPM [POC] QIDACANDBED 04/20/20 05:00 C-REACTIVE PROTEIN [CHEM] DAILY CBC WITH AUTO DIFF [HEME] DAILY D-DIMER QUANTITATIVE [COAG] DAILY FERRITIN [CHEM] DAILY 04/20/20 08:18 COMPREHENSIVE METABOLIC PN,CMP [CHEM] DAILY 04/21/20 05:00 C-REACTIVE PROTEIN [CHEM] DAILY CBC WITH AUTO DIFF [HEME] DAILY D-DIMER QUANTITATIVE [COAG] DAILY FERRITIN [CHEM] DAILY 04/21/20 08:18 COMPREHENSIVE METABOLIC PN,CMP [CHEM] DAILY 04/22/20 05:00 C-REACTIVE PROTEIN [CHEM] DAILY CBC WITH AUTO DIFF [HEME] DAILY D-DIMER QUANTITATIVE [COAG] DAILY FERRITIN [CHEM] DAILY 04/22/20 08:18 COMPREHENSIVE METABOLIC PN,CMP [CHEM] DAILY 04/23/20 05:00 C-REACTIVE PROTEIN [CHEM] DAILY CBC WITH AUTO DIFF [HEME] DAILY D-DIMER QUANTITATIVE [COAG] DAILY FERRITIN [CHEM] DAILY 04/23/20 08:18 COMPREHENSIVE METABOLIC PN,CMP [CHEM] DAILY - Plan Plan:: ASSESSMENT AND PLAN BILATERAL PNEUMONIA SECONDARY TO [id number] since she was placed on BiPAP yesterday with adequate oxygenation and improvement in respiratory rate -Decadron 6 mg IV daily, day is day 8 -Noninvasive positive pressure ventilation -This does need to be used as consistently as possible until her status improves -Supportive care, she refuses prone ventilation -Saline lock IV HYPOXIA-secondary to pneumonia and COVID-19 -Supplemental oxygen as needed -Inhalers as needed CHRONIC KIDNEY DISEASE STAGE IV-renal function has remained stable through hospitalization -Closely monitor urine output and renal function TYPE 2 DIABETES MELLITUS -Continue usual dose of long-acting insulin -4 times daily glucometers -Moderate dose sliding scale Humalog MAINTENANCE ISSUES -DVT prophylaxis; Lovenox 30 mg subcu daily -GI prophylaxis; not indicated -Figueroa catheter; not indicated -Nutrition; consistent carbohydrate diet -Nicotine dependence; not required CODE STATUS-FULL CODE; I discussed this with the patient when she was seen in the emergency department and she is adamant about aggressive care including intubation if needed ADMISSION STATUS-patient will be admitted to inpatient status, expect at least a 2 night hospital stay for evaluation and management of problems as outlined above. At the time of this admission I do not reasonably expected evaluation and management of this problem will require more than a 96 hour hospital stay. DISPOSITION-anticipate discharge to home after the hospital stay. PRIMARY CARE PROVIDER-
[2020-04-19] MEDS: Albuterol 8 GM Inhaler INH PRN (15:58)
[2020-04-19] MEDS: Dexamethasone 4 MG/ML SDV IVPUSH SCH (19:40)
[2020-04-19] MEDS: Insulin Glargine,Human Rec. Analog 100 Units/ML 3 ML Pen SUBCUT SCH (20:56)
[2020-04-19] MEDS: Gabapentin 100 MG Cap PO SCH (20:56)
[2020-04-19] MEDS: Enoxaparin 30 MG/0.3 ML Syringe SUBCUT SCH (21:02)
[2020-04-20] MEDS: Insulin Lispro 100 Unit/ML 3 ML KwikPen SUBCUT SCH ×4 (08:14→21:04)
[2020-04-20] MEDS: Aspirin 81 MG Tab.Chew PO SCH (09:07)
[2020-04-20] MEDS: Allopurinol 100 MG Tab PO SCH (09:07)
[2020-04-20] MEDS: Tamoxifen 10 MG Tab PO SCH (09:07)
[2020-04-20] MEDS: Polyethylene Glycol 3350 Powder 17 GM Packet PO PRN (09:17)
--- NOTE | 2020-04-20 09:32 | PCM.PN ---
- General Info Date of Service: 04/20/20 Subjective Update: Ms. Barnett continues to experience significant hypoxia and requires ongoing use of noninvasive positive pressure ventilation. She has not shown further evidence of decline and seems to be fairly stable with current management. Functional Status: Reports: Tolerating Diet, Urinating - Review of Systems General: Reports: Weakness, Fatigue. Denies: Fever, Chills Pulmonary: Reports: No Symptoms Cardiovascular: Reports: No Symptoms Gastrointestinal: Reports: No Symptoms - Patient Data Vitals - Most Recent: Last Vital Signs Temp 98.1 F 04/20/20 07:20 Pulse 82 04/20/20 07:20 Resp 16 04/20/20 07:20 BP 136/60 04/20/20 07:20 Pulse Ox 87 L 04/20/20 09:06 Weight - Most Recent: 157 lb 12.8 oz I&O - Last 24 Hours: Intake & Output 04/19/20 04/20/20 04/20/20 22:59 06:59 14:59 Intake Total 120 300 711 Output Total 450 250 Balance -330 300 461 Lab Results Last 24 Hours: Laboratory Results - last 24 hr 04/19/20 04/19/20 04/19/20 Range/Units 09:20 09:20 09:20 WBC 7.9 (4.5-11.0) K/uL RBC 3.65 (3.30-5.50) M/uL Hgb 11.4 L (12.0-15.0) g/dL Hct 35.4 L (36.0-48.0) % MCV 97 (80-98) fL MCH 31 (27-31) pg MCHC 32 (32-36) % Plt Count 213 (150-400) K/uL Neut % (Auto) 88 H (36-66) % Lymph % (Auto) 9 L (24-44) % [place] % (Auto) 4 (2-6) % Eos % (Auto) 0 L (2-4) % Baso % (Auto) 0 (0-1) % D-Dimer, Quantitative 2110 H (0.0-400.0) ng/mL Sodium (140-148) mmol/L Potassium (3.6-5.2) mmol/L Chloride (100-108) mmol/L Carbon Dioxide (21-32) mmol/L Anion Gap (5.0-14.0) mmol/L BUN (7-18) mg/dL Creatinine (0.6-1.0) mg/dL Est Cr Clr Drug Dosing mL/min Estimated GFR (MDRD) (>60) Glucose (74-106) mg/dL POC Glucose (74-106) MG/DL Calcium (8.5-10.1) mg/dL Ferritin 291 (8-388) ng/ml Total Bilirubin (0.2-1.0) mg/dL AST (15-37) U/L ALT (12-78) U/L Alkaline Phosphatase (46-116) U/L C-Reactive Protein 3.52 H (0.0-0.3) mg/dL Total Protein (6.4-8.2) g/dL Albumin (3.4-5.0) g/dL Globulin (2.3-3.5) g/dL Albumin/Globulin Ratio (1.2-2.2) 04/19/20 04/19/20 04/19/20 Range/Units 09:20 11:30 16:25 WBC (4.5-11.0) K/uL RBC (3.30-5.50) M/uL Hgb (12.0-15.0) g/dL Hct (36.0-48.0) % MCV (80-98) fL MCH (27-31) pg MCHC (32-36) % Plt Count (150-400) K/uL Neut % (Auto) (36-66) % Lymph % (Auto) (24-44) % [place] % (Auto) (2-6) % Eos % (Auto) (2-4) % Baso % (Auto) (0-1) % D-Dimer, Quantitative (0.0-400.0) ng/mL Sodium 136 L (140-148) mmol/L Potassium 4.8 (3.6-5.2) mmol/L Chloride 102 (100-108) mmol/L Carbon Dioxide 23 (21-32) mmol/L Anion Gap 15.8 H (5.0-14.0) mmol/L BUN 43 H (7-18) mg/dL Creatinine 1.3 H (0.6-1.0) mg/dL Est Cr Clr Drug Dosing 27.46 mL/min Estimated GFR (MDRD) 39 L (>60) Glucose 264 H (74-106) mg/dL POC Glucose 297 H 366 H (74-106) MG/DL Calcium 8.4 L (8.5-10.1) mg/dL Ferritin (8-388) ng/ml Total Bilirubin 0.6 (0.2-1.0) mg/dL AST 43 H (15-37) U/L ALT 29 (12-78) U/L Alkaline Phosphatase 65 (46-116) U/L C-Reactive Protein (0.0-0.3) mg/dL Total Protein 5.9 L (6.4-8.2) g/dL Albumin 2.0 L (3.4-5.0) g/dL Globulin 3.9 H (2.3-3.5) g/dL Albumin/Globulin Ratio 0.5 L (1.2-2.2) 04/19/20 04/20/20 04/20/20 Range/Units 21:00 05:23 05:23 WBC 9.0 (4.5-11.0) K/uL RBC 3.50 (3.30-5.50) M/uL Hgb 10.7 L (12.0-15.0) g/dL Hct 33.7 L (36.0-48.0) % MCV 96 (80-98) fL MCH 31 (27-31) pg MCHC 32 (32-36) % Plt Count 213 (150-400) K/uL Neut % (Auto) 88 H (36-66) % Lymph % (Auto) 7 L (24-44) % [place] % (Auto) 5 (2-6) % Eos % (Auto) 0 L (2-4) % Baso % (Auto) 0 (0-1) % D-Dimer, Quantitative 2070 H (0.0-400.0) ng/mL Sodium (140-148) mmol/L Potassium (3.6-5.2) mmol/L Chloride (100-108) mmol/L Carbon Dioxide (21-32) mmol/L Anion Gap (5.0-14.0) mmol/L BUN (7-18) mg/dL Creatinine (0.6-1.0) mg/dL Est Cr Clr Drug Dosing mL/min Estimated GFR (MDRD) (>60) Glucose (74-106) mg/dL POC Glucose 231 H (74-106) MG/DL Calcium (8.5-10.1) mg/dL Ferritin (8-388) ng/ml Total Bilirubin (0.2-1.0) mg/dL AST (15-37) U/L ALT (12-78) U/L Alkaline Phosphatase (46-116) U/L C-Reactive Protein (0.0-0.3) mg/dL Total Protein (6.4-8.2) g/dL Albumin (3.4-5.0) g/dL Globulin (2.3-3.5) g/dL Albumin/Globulin Ratio (1.2-2.2) 04/20/20 04/20/20 04/20/20 Range/Units 05:23 05:23 07:30 WBC (4.5-11.0) K/uL RBC (3.30-5.50) M/uL Hgb (12.0-15.0) g/dL Hct (36.0-48.0) % MCV (80-98) fL MCH (27-31) pg MCHC (32-36) % Plt Count (150-400) K/uL Neut % (Auto) (36-66) % Lymph % (Auto) (24-44) % [place] % (Auto) (2-6) % Eos % (Auto) (2-4) % Baso % (Auto) (0-1) % D-Dimer, Quantitative (0.0-400.0) ng/mL Sodium 135 L (140-148) mmol/L Potassium 4.8 (3.6-5.2) mmol/L Chloride 104 (100-108) mmol/L Carbon Dioxide 23 (21-32) mmol/L Anion Gap 12.8 (5.0-14.0) mmol/L BUN 41 H (7-18) mg/dL Creatinine 1.3 H (0.6-1.0) mg/dL Est Cr Clr Drug Dosing 27.46 mL/min Estimated GFR (MDRD) 39 L (>60) Glucose 257 H (74-106) mg/dL POC Glucose 271 H (74-106) MG/DL Calcium 8.3 L (8.5-10.1) mg/dL Ferritin 302 (8-388) ng/ml Total Bilirubin 0.6 (0.2-1.0) mg/dL AST 36 (15-37) U/L ALT 29 (12-78) U/L Alkaline Phosphatase 64 (46-116) U/L C-Reactive Protein 3.59 H (0.0-0.3) mg/dL Total Protein 5.7 L (6.4-8.2) g/dL Albumin 1.9 L (3.4-5.0) g/dL Globulin 3.8 H (2.3-3.5) g/dL Albumin/Globulin Ratio 0.5 L (1.2-2.2) Med Orders - Current: Current Medications Acetaminophen (Tylenol) 650 mg PO Q4H PRN PRN Reason: Pain (Mild 1-3)/fever Last Admin: 04/15/20 20:09 Dose: 650 mg Documented by: Albuterol (Ventolin Hfa) 2 gm INH Q4H PRN PRN Reason: Shortness of Breath Last Admin: 04/19/20 15:58 Dose: 1 puff Documented by: Allopurinol (Zyloprim) 200 mg PO DAILY [facility] Last Admin: 04/20/20 09:07 Dose: 200 mg Documented by: Aspirin (Aspirin) 81 mg PO DAILY [facility] Last Admin: 04/20/20 09:07 Dose: 81 mg Documented by: Benzocaine/Menthol (Cepacol Sore Throat) 1 lozenge MUCMEM ASDIRECTED PRN PRN Reason: SORE THROAT Last Admin: 04/16/20 03:56 Dose: 1 lozenge Documented by: Dexamethasone (Dexamethasone) 6 mg IVPUSH Q24H [facility] Last Admin: 04/19/20 19:40 Dose: 6 mg Documented by: Dextrose (Glutose 15) 15 gm PO ONETIME PRN PRN Reason: Hypoglycemia Dextrose/Water (Dextrose 50% In Water) 50 ml IV ONETIME PRN PRN Reason: Hypoglycemia Enoxaparin Sodium (Lovenox) 30 mg SUBCUT BEDTIME [facility] Last Admin: 04/19/20 21:02 Dose: 30 mg Documented by: Gabapentin (Neurontin) 100 mg PO BEDTIME [facility] Last Admin: 04/19/20 20:56 Dose: 100 mg Documented by: Insulin Glargine (Lantus Solostar) 24 units SUBCUT BEDTIME [facility] Last Admin: 04/19/20 20:56 Dose: 24 units Documented by: Insulin Human Lispro (Humalog) 0 unit SUBCUT QIDACANDBED [facility]; Protocol Last Admin: 04/20/20 08:14 Dose: 6 units Documented by: Lorazepam (Ativan) 0.5 mg IVPUSH Q2H PRN PRN Reason: Anxiety Last Admin: 04/18/20 07:55 Dose: 0.5 mg Documented by: Melatonin (Melatonin) 9 mg PO BEDTIME PRN PRN Reason: Insomnia Last Admin: 04/15/20 20:09 Dose: 9 mg Documented by: Ondansetron HCl (Zofran) 4 mg IV Q4H PRN PRN Reason: Nausea/Vomiting Oxycodone HCl (Oxycodone) 5 mg PO Q4H PRN PRN Reason: Pain Last Admin: 04/15/20 21:50 Dose: 5 mg Documented by: Polyethylene Glycol (Miralax) 17 gm PO DAILY PRN PRN Reason: Constipation Last Admin: 04/20/20 09:17 Dose: 17 gm Documented by: Sodium Chloride (Saline Flush) 10 ml FLUSH ASDIRECTED PRN PRN Reason: Keep Vein Open Last Admin: 04/15/20 09:45 Dose: 10 ml Documented by: Tamoxifen Citrate (Nolvadex) 20 mg PO DAILY [facility] Last Admin: 04/20/20 09:07 Dose: 20 mg Documented by: Discontinued Medications Acetaminophen (Tylenol) 650 mg PO ONCALL ONE Stop: 04/13/20 16:31 Last Admin: 04/13/20 17:02 Dose: 650 mg Documented by: Acetaminophen (Tylenol) 650 mg PO ONCALL ONE Stop: 04/14/20 14:31 Last Admin: 04/14/20 15:56 Dose: 650 mg Documented by: Acetaminophen (Tylenol) 650 mg PO ONCALL ONE Stop: 04/15/20 10:31 Last Admin: 04/15/20 09:44 Dose: 650 mg Documented by: Acetaminophen (Tylenol) 650 mg PO ONCALL ONE Stop: 04/16/20 09:01 Last Admin: 04/16/20 09:28 Dose: 650 mg Documented by: Albuterol (Proventil Neb Soln) 2.5 mg NEB Q4H PRN PRN Reason: Shortness Of Breath/wheezing Last Admin: 04/15/20 20:23 Dose: 2.5 mg Documented by: Benzocaine/Menthol (Cepacol Sore Throat) 1 lozenge MUCMEM ASDIRECTED PRN PRN Reason: SORE THROAT Benzocaine/Menthol (Cepacol Sore Throat) Confirm Administered Dose 1 lozenge .ROUTE .STK-MED ONE Stop: 04/12/20 21:32 Last Admin: 04/12/20 22:57 Dose: Not Given Documented by: Dexamethasone (Dexamethasone) 6 mg IVPUSH ONETIME ONE Stop: 04/11/20 17:50 Last Admin: 04/11/20 18:08 Dose: 6 mg Documented by: Dexamethasone (Dexamethasone) Confirm Administered Dose 4 mg .ROUTE .STK-MED ONE Stop: 04/11/20 18:01 Last Admin: 04/11/20 18:11 Dose: Not Given Documented by: Diphenhydramine HCl (Benadryl) 25 mg IVPUSH ONCALL ONE Stop: 04/13/20 16:31 Last Admin: 04/13/20 17:02 Dose: 25 mg Documented by: Diphenhydramine HCl (Benadryl) 25 mg IVPUSH ONCALL ONE Stop: 04/14/20 14:31 Last Admin: 04/14/20 15:56 Dose: 25 mg Documented by: Diphenhydramine HCl (Benadryl) 25 mg PO ONCALL ONE Stop: 04/15/20 10:31 Last Admin: 04/15/20 09:46 Dose: 25 mg Documented by: Diphenhydramine HCl (Benadryl) 25 mg PO ONCALL ONE Stop: 04/16/20 09:01 Last Admin: 04/16/20 09:28 Dose: 25 mg Documented by: Enoxaparin Sodium (Lovenox) 30 mg SUBCUT DAILY [facility] Last Admin: 04/11/20 21:39 Dose: 30 mg Documented by: Furosemide (Lasix) 40 mg IVPUSH NOW ONE Stop: 04/16/20 12:01 Last Admin: 04/16/20 12:26 Dose: 40 mg Documented by: Sodium Chloride (Normal Saline) 1,000 mls @ 1,000 mls/hr IV ASDIRECTED [facility] Last Admin: 04/11/20 17:14 Dose: 1,000 mls/hr Documented by: Sodium Chloride (Normal Saline) 1,000 mls @ 50 mls/hr IV ASDIRECTED [facility] Last Admin: 04/11/20 22:32 Dose: 50 mls/hr Documented by: Sodium Chloride (Normal Saline) 250 mls @ 20 mls/hr IV ASDIRECTED [facility] Last Admin: 04/13/20 17:55 Dose: 20 mls/hr Documented by: Insulin Glargine (Lantus Solostar) 26 units SUBCUT BEDTIME [facility] Last Admin: 04/11/20 23:35 Dose: Not Given Documented by: Insulin Glargine (Lantus Solostar) 24 units SUBCUT BEDTIME [facility] Last Admin: 04/11/20 22:33 Dose: 24 units Documented by: - Exam Quality Assessment: Supplemental Oxygen (Noninvasive positive pressure ventilation), DVT Prophylaxis Lungs: Decreased Breath Sounds, Rales. No: Normal Respiratory Effort, Crackles, Rhonchi, Wheezing Cardiovascular: Regular Rate, Regular Rhythm, No Murmurs GI/Abdominal Exam: Soft, Non-Tender, No Organomegaly, No Distention Extremities: Non-Tender, No Pedal Edema Sepsis Event Note - Evaluation Sepsis Screening Result: No Definite Risk - Focused Exam Vital Signs: Vital Signs Temp Pulse Resp BP Pulse Ox 04/20/20 09:06 87 L 04/20/20 09:04 78 L 04/20/20 07:20 98.1 F 82 16 136/60 90 L 04/20/20 07:02 92 L 04/20/20 03:18 97.7 F 76 20 132/61 92 L 04/20/20 01:08 95 04/20/20 00:07 97.7 F 67 20 162/82 H 93 L - Problem List Review Problem List Initiated/Reviewed/Updated: Yes - Plan Plan:: ASSESSMENT AND PLAN BILATERAL PNEUMONIA SECONDARY TO [id number] with current management -Decadron 6 mg IV daily, today is day 9 of 10 -Noninvasive positive pressure ventilation -This does need to be used as consistently as possible until her status improves -Supportive care, she refuses prone ventilation -Saline lock IV HYPOXIA-secondary to pneumonia and COVID-19 -Supplemental oxygen as needed -Inhalers as needed CHRONIC KIDNEY DISEASE STAGE IV-renal function has remained stable through hospitalization -Closely monitor urine output and renal function TYPE 2 DIABETES MELLITUS -Continue usual dose of long-acting insulin -4 times daily glucometers -Moderate dose sliding scale Humalog MAINTENANCE ISSUES -DVT prophylaxis; Lovenox 30 mg subcu daily -GI prophylaxis; not indicated -Figueroa catheter; not indicated -Nutrition; consistent carbohydrate diet -Nicotine dependence; not required CODE STATUS-FULL CODE; I discussed this with the patient when she was seen in the emergency department and she is adamant about aggressive care including intubation if needed ADMISSION STATUS-patient will be admitted to inpatient status, expect at least a 2 night hospital stay for evaluation and management of problems as outlined above. At the time of this admission I do not reasonably expected evaluation and management of this problem will require more than a 96 hour hospital stay. DISPOSITION-anticipate discharge to home after the hospital stay. PRIMARY CARE PROVIDER-
[2020-04-20] MEDS: Albuterol 8 GM Inhaler INH PRN (17:07)
[2020-04-20] MEDS: Dexamethasone 4 MG/ML SDV IVPUSH SCH (20:29)
[2020-04-20] MEDS: Benzocaine/Cetylpyridinium/Menthol Lozenge MUCMEM PRN (20:30)
[2020-04-20] MEDS: Gabapentin 100 MG Cap PO SCH (20:30)
[2020-04-20] MEDS: Enoxaparin 30 MG/0.3 ML Syringe SUBCUT SCH (20:30)
[2020-04-20] MEDS: Insulin Glargine,Human Rec. Analog 100 Units/ML 3 ML Pen SUBCUT SCH (21:04)
[2020-04-20] MEDS: Acetaminophen 325 MG Tab PO PRN (23:17)
[2020-04-21] MEDS: Polyethylene Glycol 3350 Powder 17 GM Packet PO PRN (08:06)
[2020-04-21] MEDS: Insulin Lispro 100 Unit/ML 3 ML KwikPen SUBCUT SCH ×4 (08:07→21:07)
[2020-04-21] MEDS: Aspirin 81 MG Tab.Chew PO SCH (08:47)
[2020-04-21] MEDS: Tamoxifen 10 MG Tab PO SCH (08:47)
[2020-04-21] MEDS: Allopurinol 100 MG Tab PO SCH (08:47)
--- NOTE | 2020-04-21 10:49 | PCM.PN ---
- General Info Date of Service: 04/21/20 Admission Dx/Problem (Free Text): 1. COVID 19 PNA Subjective Update: Patient stable and still on 15 L NC. Intermittently using BiPAP Otherwise is ambulating more, seems to be getting some of the energy back. Asking about her status. Functional Status: Reports: Pain Controlled, Tolerating Diet, Ambulating, Urinating. Denies: New Symptoms - Review of Systems General: Reports: No Symptoms HEENT: Reports: No Symptoms Pulmonary: Reports: Shortness of Breath, Cough Cardiovascular: Reports: No Symptoms Gastrointestinal: Reports: No Symptoms - Patient Data Vitals - Most Recent: Last Vital Signs Temp 97.7 F 04/21/20 07:43 Pulse 87 04/21/20 07:43 Resp 18 04/21/20 07:43 BP 137/53 L 04/21/20 07:43 Pulse Ox 90 L 04/21/20 07:43 Weight - Most Recent: 158 lb 6.4 oz I&O - Last 24 Hours: Intake & Output 04/20/20 04/21/20 04/21/20 22:59 06:59 14:59 Intake Total 296 800 532 Output Total 500 Balance 296 800 32 Lab Results Last 24 Hours: Laboratory Results - last 24 hr 04/20/20 04/20/20 04/20/20 Range/Units 11:30 16:19 21:00 WBC (4.5-11.0) K/uL RBC (3.30-5.50) M/uL Hgb (12.0-15.0) g/dL Hct (36.0-48.0) % MCV (80-98) fL MCH (27-31) pg MCHC (32-36) % Plt Count (150-400) K/uL Neut % (Auto) (36-66) % Lymph % (Auto) (24-44) % [place] % (Auto) (2-6) % Eos % (Auto) (2-4) % Baso % (Auto) (0-1) % D-Dimer, Quantitative (0.0-500.0) ng/mL Sodium (140-148) mmol/L Potassium (3.6-5.2) mmol/L Chloride (100-108) mmol/L Carbon Dioxide (21-32) mmol/L Anion Gap (5.0-14.0) mmol/L BUN (7-18) mg/dL Creatinine (0.6-1.0) mg/dL Est Cr Clr Drug Dosing mL/min Estimated GFR (MDRD) (>60) Glucose (74-106) mg/dL POC Glucose 284 H 213 H 172 H (74-106) MG/DL Calcium (8.5-10.1) mg/dL Ferritin (8-388) ng/ml Total Bilirubin (0.2-1.0) mg/dL AST (15-37) U/L ALT (12-78) U/L Alkaline Phosphatase (46-116) U/L C-Reactive Protein (0.0-0.3) mg/dL Total Protein (6.4-8.2) g/dL Albumin (3.4-5.0) g/dL Globulin (2.3-3.5) g/dL Albumin/Globulin Ratio (1.2-2.2) 04/21/20 04/21/20 04/21/20 Range/Units 05:11 05:11 05:11 WBC 10.0 (4.5-11.0) K/uL RBC 3.65 (3.30-5.50) M/uL Hgb 11.4 L (12.0-15.0) g/dL Hct 34.9 L (36.0-48.0) % MCV 96 (80-98) fL MCH 31 (27-31) pg MCHC 33 (32-36) % Plt Count 221 (150-400) K/uL Neut % (Auto) 88 H (36-66) % Lymph % (Auto) 8 L (24-44) % [place] % (Auto) 4 (2-6) % Eos % (Auto) 0 L (2-4) % Baso % (Auto) 0 (0-1) % D-Dimer, Quantitative 2855.59 H (0.0-500.0) ng/mL Sodium (140-148) mmol/L Potassium (3.6-5.2) mmol/L Chloride (100-108) mmol/L Carbon Dioxide (21-32) mmol/L Anion Gap (5.0-14.0) mmol/L BUN (7-18) mg/dL Creatinine (0.6-1.0) mg/dL Est Cr Clr Drug Dosing mL/min Estimated GFR (MDRD) (>60) Glucose (74-106) mg/dL POC Glucose (74-106) MG/DL Calcium (8.5-10.1) mg/dL Ferritin 313 (8-388) ng/ml Total Bilirubin (0.2-1.0) mg/dL AST (15-37) U/L ALT (12-78) U/L Alkaline Phosphatase (46-116) U/L C-Reactive Protein 5.96 H (0.0-0.3) mg/dL Total Protein (6.4-8.2) g/dL Albumin (3.4-5.0) g/dL Globulin (2.3-3.5) g/dL Albumin/Globulin Ratio (1.2-2.2) 04/21/20 04/21/20 Range/Units 05:11 07:30 WBC (4.5-11.0) K/uL RBC (3.30-5.50) M/uL Hgb (12.0-15.0) g/dL Hct (36.0-48.0) % MCV (80-98) fL MCH (27-31) pg MCHC (32-36) % Plt Count (150-400) K/uL Neut % (Auto) (36-66) % Lymph % (Auto) (24-44) % [place] % (Auto) (2-6) % Eos % (Auto) (2-4) % Baso % (Auto) (0-1) % D-Dimer, Quantitative (0.0-500.0) ng/mL Sodium 133 L (140-148) mmol/L Potassium 5.1 (3.6-5.2) mmol/L Chloride 102 (100-108) mmol/L Carbon Dioxide 24 (21-32) mmol/L Anion Gap 12.1 (5.0-14.0) mmol/L BUN 44 H (7-18) mg/dL Creatinine 1.4 H (0.6-1.0) mg/dL Est Cr Clr Drug Dosing 25.50 mL/min Estimated GFR (MDRD) 35 L (>60) Glucose 215 H (74-106) mg/dL POC Glucose 239 H (74-106) MG/DL Calcium 8.4 L (8.5-10.1) mg/dL Ferritin (8-388) ng/ml Total Bilirubin 0.7 (0.2-1.0) mg/dL AST 35 (15-37) U/L ALT 28 (12-78) U/L Alkaline Phosphatase 68 (46-116) U/L C-Reactive Protein (0.0-0.3) mg/dL Total Protein 6.0 L (6.4-8.2) g/dL Albumin 1.9 L (3.4-5.0) g/dL Globulin 4.1 H (2.3-3.5) g/dL Albumin/Globulin Ratio 0.5 L (1.2-2.2) Med Orders - Current: Current Medications Acetaminophen (Tylenol) 650 mg PO Q4H PRN PRN Reason: Pain (Mild 1-3)/fever Last Admin: 04/20/20 23:17 Dose: 650 mg Documented by: Albuterol (Ventolin Hfa) 2 gm INH Q4H PRN PRN Reason: Shortness of Breath Last Admin: 04/20/20 17:07 Dose: 2 puff Documented by: Allopurinol (Zyloprim) 200 mg PO DAILY [facility] Last Admin: 04/21/20 08:47 Dose: 200 mg Documented by: Aspirin (Aspirin) 81 mg PO DAILY [facility] Last Admin: 04/21/20 08:47 Dose: 81 mg Documented by: Benzocaine/Menthol (Cepacol Sore Throat) 1 lozenge MUCMEM ASDIRECTED PRN PRN Reason: SORE THROAT Last Admin: 04/20/20 20:30 Dose: 1 lozenge Documented by: Dexamethasone (Dexamethasone) 6 mg IVPUSH Q24H [facility] Last Admin: 04/20/20 20:29 Dose: 6 mg Documented by: Dextrose (Glutose 15) 15 gm PO ONETIME PRN PRN Reason: Hypoglycemia Dextrose/Water (Dextrose 50% In Water) 50 ml IV ONETIME PRN PRN Reason: Hypoglycemia Enoxaparin Sodium (Lovenox) 30 mg SUBCUT BEDTIME [facility] Last Admin: 04/20/20 20:30 Dose: 30 mg Documented by: Gabapentin (Neurontin) 100 mg PO BEDTIME [facility] Last Admin: 04/20/20 20:30 Dose: 100 mg Documented by: Insulin Glargine (Lantus Solostar) 24 units SUBCUT BEDTIME [facility] Last Admin: 04/20/20 21:04 Dose: 24 units Documented by: Insulin Human Lispro (Humalog) 0 unit SUBCUT QIDACANDBED [facility]; Protocol Last Admin: 04/21/20 08:07 Dose: 6 units Documented by: Lorazepam (Ativan) 0.5 mg IVPUSH Q2H PRN PRN Reason: Anxiety Last Admin: 04/18/20 07:55 Dose: 0.5 mg Documented by: Melatonin (Melatonin) 9 mg PO BEDTIME PRN PRN Reason: Insomnia Last Admin: 04/15/20 20:09 Dose: 9 mg Documented by: Ondansetron HCl (Zofran) 4 mg IV Q4H PRN PRN Reason: Nausea/Vomiting Oxycodone HCl (Oxycodone) 5 mg PO Q4H PRN PRN Reason: Pain Last Admin: 04/15/20 21:50 Dose: 5 mg Documented by: Polyethylene Glycol (Miralax) 17 gm PO DAILY PRN PRN Reason: Constipation Last Admin: 04/21/20 08:06 Dose: 17 gm Documented by: Sodium Chloride (Saline Flush) 10 ml FLUSH ASDIRECTED PRN PRN Reason: Keep Vein Open Last Admin: 04/15/20 09:45 Dose: 10 ml Documented by: Tamoxifen Citrate (Nolvadex) 20 mg PO DAILY [facility] Last Admin: 04/21/20 08:47 Dose: 20 mg Documented by: Discontinued Medications Acetaminophen (Tylenol) 650 mg PO ONCALL ONE Stop: 04/13/20 16:31 Last Admin: 04/13/20 17:02 Dose: 650 mg Documented by: Acetaminophen (Tylenol) 650 mg PO ONCALL ONE Stop: 04/14/20 14:31 Last Admin: 04/14/20 15:56 Dose: 650 mg Documented by: Acetaminophen (Tylenol) 650 mg PO ONCALL ONE Stop: 04/15/20 10:31 Last Admin: 04/15/20 09:44 Dose: 650 mg Documented by: Acetaminophen (Tylenol) 650 mg PO ONCALL ONE Stop: 04/16/20 09:01 Last Admin: 04/16/20 09:28 Dose: 650 mg Documented by: Albuterol (Proventil Neb Soln) 2.5 mg NEB Q4H PRN PRN Reason: Shortness Of Breath/wheezing Last Admin: 04/15/20 20:23 Dose: 2.5 mg Documented by: Benzocaine/Menthol (Cepacol Sore Throat) 1 lozenge MUCMEM ASDIRECTED PRN PRN Reason: SORE THROAT Benzocaine/Menthol (Cepacol Sore Throat) Confirm Administered Dose 1 lozenge .ROUTE .STK-MED ONE Stop: 04/12/20 21:32 Last Admin: 04/12/20 22:57 Dose: Not Given Documented by: Dexamethasone (Dexamethasone) 6 mg IVPUSH ONETIME ONE Stop: 04/11/20 17:50 Last Admin: 04/11/20 18:08 Dose: 6 mg Documented by: Dexamethasone (Dexamethasone) Confirm Administered Dose 4 mg .ROUTE .STK-MED ONE Stop: 04/11/20 18:01 Last Admin: 04/11/20 18:11 Dose: Not Given Documented by: Diphenhydramine HCl (Benadryl) 25 mg IVPUSH ONCALL ONE Stop: 04/13/20 16:31 Last Admin: 04/13/20 17:02 Dose: 25 mg Documented by: Diphenhydramine HCl (Benadryl) 25 mg IVPUSH ONCALL ONE Stop: 04/14/20 14:31 Last Admin: 04/14/20 15:56 Dose: 25 mg Documented by: Diphenhydramine HCl (Benadryl) 25 mg PO ONCALL ONE Stop: 04/15/20 10:31 Last Admin: 04/15/20 09:46 Dose: 25 mg Documented by: Diphenhydramine HCl (Benadryl) 25 mg PO ONCALL ONE Stop: 04/16/20 09:01 Last Admin: 04/16/20 09:28 Dose: 25 mg Documented by: Enoxaparin Sodium (Lovenox) 30 mg SUBCUT DAILY [facility] Last Admin: 04/11/20 21:39 Dose: 30 mg Documented by: Furosemide (Lasix) 40 mg IVPUSH NOW ONE Stop: 04/16/20 12:01 Last Admin: 04/16/20 12:26 Dose: 40 mg Documented by: Sodium Chloride (Normal Saline) 1,000 mls @ 1,000 mls/hr IV ASDIRECTED NABILA Last Admin: 04/11/20 17:14 Dose: 1,000 mls/hr Documented by: Sodium Chloride (Normal Saline) 1,000 mls @ 50 mls/hr IV ASDIRECTED [facility] Last Admin: 04/11/20 22:32 Dose: 50 mls/hr Documented by: Sodium Chloride (Normal Saline) 250 mls @ 20 mls/hr IV ASDIRECTED [facility] Last Admin: 04/13/20 17:55 Dose: 20 mls/hr Documented by: Insulin Glargine (Lantus Solostar) 26 units SUBCUT BEDTIME [facility] Last Admin: 04/11/20 23:35 Dose: Not Given Documented by: Insulin Glargine (Lantus Solostar) 24 units SUBCUT BEDTIME [facility] Last Admin: 04/11/20 22:33 Dose: 24 units Documented by: Insulin Human Lispro (Humalog) 0 unit SUBCUT QIDACANDBED [facility]; Protocol Last Admin: 04/20/20 12:03 Dose: 6 units Documented by: - Exam Quality Assessment: Supplemental Oxygen, DVT Prophylaxis. No: Central Line/PICC, Urine Catheter, Skin Breakdown General: Alert, Oriented, Cooperative, Mild Distress Lungs: Crackles (bilateral to mid [place] - maybe possibly starting to break up a little?) Cardiovascular: Regular Rate, Regular Rhythm, No Murmurs. No: Irregular Rhythm, Murmurs, Gallops, Rubs GI/Abdominal Exam: Normal Bowel Sounds Skin: Warm, Dry, Intact Neurological: No New Focal Deficit Psy/Mental Status: Alert, Normal Affect, Normal Mood Sepsis Event Note - Evaluation Sepsis Screening Result: No Definite Risk - Focused Exam Vital Signs: Vital Signs Temp Temp Pulse Resp BP Pulse Ox Pulse Ox 04/21/20 07:43 97.7 F 87 18 137/53 L 90 L 04/21/20 07:15 88 L 04/21/20 06:26 88 L 04/21/20 02:19 99.0 F 75 20 126/48 L 93 L 04/21/20 01:31 92 L 04/20/20 23:47 99.0 F 04/20/20 23:17 100.8 F H 04/20/20 23:14 100.8 F H 74 26 H 141/49 H 90 L - Problem List Review Problem List Initiated/Reviewed/Updated: Yes - My Orders Last 24 Hours: My Active Orders 04/21/20 11:30 GLUCOSE POC LAB TO COLLECT JPM [POC] QIDACANDBED 04/21/20 16:30 GLUCOSE POC LAB TO COLLECT JPM [POC] QIDACANDBED 04/21/20 21:00 GLUCOSE POC LAB TO COLLECT JPM [POC] QIDACANDBED 04/22/20 05:00 C-REACTIVE PROTEIN [CHEM] DAILY CBC WITH AUTO DIFF [HEME] DAILY D-DIMER QUANTITATIVE [COAG] DAILY FERRITIN [CHEM] DAILY 04/22/20 07:30 GLUCOSE POC LAB TO COLLECT JPM [POC] QIDACANDBED 04/22/20 08:18 COMPREHENSIVE METABOLIC PN,CMP [CHEM] DAILY 04/22/20 11:30 GLUCOSE POC LAB TO COLLECT JPM [POC] QIDACANDBED 04/22/20 16:30 GLUCOSE POC LAB TO COLLECT JPM [POC] QIDACANDBED 04/22/20 21:00 GLUCOSE POC LAB TO COLLECT JPM [POC] QIDACANDBED 04/23/20 05:00 C-REACTIVE PROTEIN [CHEM] DAILY CBC WITH AUTO DIFF [HEME] DAILY D-DIMER QUANTITATIVE [COAG] DAILY FERRITIN [CHEM] DAILY 04/23/20 07:30 GLUCOSE POC LAB TO COLLECT JPM [POC] QIDACANDBED 04/23/20 08:18 COMPREHENSIVE METABOLIC PN,CMP [CHEM] DAILY 04/23/20 11:30 GLUCOSE POC LAB TO COLLECT JPM [POC] QIDACANDBED 04/23/20 16:30 GLUCOSE POC LAB TO COLLECT JPM [POC] QIDACANDBED 04/23/20 21:00 GLUCOSE POC LAB TO COLLECT JPM [POC] QIDACANDBED 04/24/20 07:30 GLUCOSE POC LAB TO COLLECT JPM [POC] QIDACANDBED 04/24/20 11:30 GLUCOSE POC LAB TO COLLECT JPM [POC] QIDACANDBED 04/24/20 16:30 GLUCOSE POC LAB TO COLLECT JPM [POC] QIDACANDBED 04/24/20 21:00 GLUCOSE POC LAB TO COLLECT JPM [POC] QIDACANDBED 04/25/20 07:30 GLUCOSE POC LAB TO COLLECT JPM [POC] QIDACANDBED 04/25/20 11:30 GLUCOSE POC LAB TO COLLECT JPM [POC] QIDACANDBED 04/25/20 16:30 GLUCOSE POC LAB TO COLLECT JPM [POC] QIDACANDBED 04/25/20 21:00 GLUCOSE POC LAB TO COLLECT JPM [POC] QIDACANDBED 04/26/20 07:30 GLUCOSE POC LAB TO COLLECT JPM [POC] QIDACANDBED 04/26/20 11:30 GLUCOSE POC LAB TO COLLECT JPM [POC] QIDACANDBED 04/26/20 16:30 GLUCOSE POC LAB TO COLLECT JPM [POC] QIDACANDBED 04/26/20 21:00 GLUCOSE POC LAB TO COLLECT JPM [POC] QIDACANDBED - Plan Plan:: ASSESSMENT AND PLAN BILATERAL PNEUMONIA SECONDARY TO [id number] with current management -Decadron 6 mg IV daily, today is day 10 of 10 -Noninvasive positive pressure ventilation -This does need to be used as consistently as possible until her status improves -Supportive care, she refuses prone ventilation -Saline lock IV HYPOXIA-secondary to pneumonia and COVID-19 -Supplemental oxygen as needed -Inhalers as needed CHRONIC KIDNEY DISEASE STAGE IV-renal function has remained stable through hospitalization -Closely monitor urine output and renal function TYPE 2 DIABETES MELLITUS -Continue usual dose of long-acting insulin -4 times daily glucometers -Moderate dose sliding scale Humalog MAINTENANCE ISSUES -DVT prophylaxis; Lovenox 30 mg subcu daily -GI prophylaxis; not indicated -Figueroa catheter; not indicated -Nutrition; consistent carbohydrate diet -Nicotine dependence; not required CODE STATUS-FULL CODE; I discussed this with the patient when she was seen in the emergency department and she is adamant about aggressive care including intubation if needed ADMISSION STATUS-patient will be admitted to inpatient status, expect at least a 2 night hospital stay for evaluation and management of problems as outlined above. At the time of this admission I do not reasonably expected evaluation and management of this problem will require more than a 96 hour hospital stay. DISPOSITION-anticipate discharge to home after the hospital stay. PRIMARY CARE PROVIDER-
[2020-04-21] MEDS ORDERED: Magnesium Hydroxide 400 MG/5 ML Susp 30 ML Cup PO SCH (11:00)
[2020-04-21] MEDS ORDERED: Bisacodyl 5 MG Tab PO SCH (11:00)
[2020-04-21] MEDS: Benzocaine/Cetylpyridinium/Menthol Lozenge MUCMEM PRN ×3 (11:10→21:13)
[2020-04-21] MEDS: Albuterol 8 GM Inhaler INH PRN ×2 (15:04→19:08)
[2020-04-21] MEDS: Dexamethasone 4 MG/ML SDV IVPUSH SCH (19:46)
[2020-04-21] MEDS: oxyCODONE 5 MG Tab PO PRN (19:47)
[2020-04-21] MEDS: Melatonin 3 MG Tab PO PRN (19:48)
[2020-04-21] MEDS: Enoxaparin 30 MG/0.3 ML Syringe SUBCUT SCH ×2 (19:54→20:34)
[2020-04-21] MEDS: Gabapentin 100 MG Cap PO SCH ×2 (19:54→20:35)
[2020-04-21] MEDS: Insulin Glargine,Human Rec. Analog 100 Units/ML 3 ML Pen SUBCUT SCH (21:07)
[2020-04-22] MEDS: oxyCODONE 5 MG Tab PO PRN (00:48)
[2020-04-22] MEDS: Acetaminophen 325 MG Tab PO PRN (00:48)
[2020-04-22] MEDS: Benzocaine/Cetylpyridinium/Menthol Lozenge MUCMEM PRN (00:54)
[2020-04-22] MEDS: Insulin Lispro 100 Unit/ML 3 ML KwikPen SUBCUT SCH ×4 (08:03→20:15)
[2020-04-22] MEDS ORDERED: Sodium Polystyrene Sulfonate 15 GM/60 ML Susp 60 ML Bot PO ONE (10:00)
[2020-04-22] MEDS: Allopurinol 100 MG Tab PO SCH (10:02)
[2020-04-22] MEDS: Aspirin 81 MG Tab.Chew PO SCH (10:02)
[2020-04-22] MEDS: Tamoxifen 10 MG Tab PO SCH (10:02)
[2020-04-22] MEDS ORDERED: Furosemide 40 MG/4 ML VIAL IV ONE (12:00)
--- NOTE | 2020-04-22 12:55 | PCM.PN ---
- General Info Date of Service: 04/22/20 Admission Dx/Problem (Free Text): 1. COVID PNA 2. Acute respiratory failure Subjective Update: For the past 4-5 days the patient has been stable on 15 L HFNC. She has intermittently used the BiPAP during that time. Today, 22 April, the patient has continued to deteriorate and has now become BiPAP dependent. She is very dangerously close to requiring intubation and is to be transferred to ICU for this purpose. Functional Status: Reports: Pain Controlled, Urinating. Denies: Tolerating Diet - Review of Systems Pulmonary: Reports: Shortness of Breath, Other (severe hypoxia) - Patient Data Vitals - Most Recent: Last Vital Signs Temp 98.3 F 04/22/20 11:39 Pulse 84 04/22/20 11:39 Resp 25 H 04/22/20 11:39 BP 136/53 L 04/22/20 11:39 Pulse Ox 91 L 04/22/20 11:39 Weight - Most Recent: 157 lb 9.594 oz I&O - Last 24 Hours: Intake & Output 04/21/20 04/22/20 04/22/20 22:59 06:59 14:59 Intake Total 416 500 180 Output Total 500 200 Balance 416 0 -20 Lab Results Last 24 Hours: Laboratory Results - last 24 hr 04/21/20 04/21/20 04/22/20 Range/Units 16:22 21:00 06:09 WBC 9.3 (4.5-11.0) K/uL RBC 3.45 (3.30-5.50) M/uL Hgb 10.5 L (12.0-15.0) g/dL Hct 33.1 L (36.0-48.0) % MCV 96 (80-98) fL MCH 30 (27-31) pg MCHC 32 (32-36) % Plt Count 217 (150-400) K/uL Neut % (Auto) 89 H (36-66) % Lymph % (Auto) 7 L (24-44) % Wright % (Auto) 4 (2-6) % Eos % (Auto) 0 L (2-4) % Baso % (Auto) 0 (0-1) % D-Dimer, Quantitative (0.0-500.0) ng/mL Sodium (140-148) mmol/L Potassium (3.6-5.2) mmol/L Chloride (100-108) mmol/L Carbon Dioxide (21-32) mmol/L Anion Gap (5.0-14.0) mmol/L BUN (7-18) mg/dL Creatinine (0.6-1.0) mg/dL Est Cr Clr Drug Dosing mL/min Estimated GFR (MDRD) (>60) Glucose (74-106) mg/dL POC Glucose 213 H 190 H (74-106) MG/DL Calcium (8.5-10.1) mg/dL Ferritin (8-388) ng/ml Total Bilirubin (0.2-1.0) mg/dL AST (15-37) U/L ALT (12-78) U/L Alkaline Phosphatase (46-116) U/L C-Reactive Protein (0.0-0.3) mg/dL Total Protein (6.4-8.2) g/dL Albumin (3.4-5.0) g/dL Globulin (2.3-3.5) g/dL Albumin/Globulin Ratio (1.2-2.2) 04/22/20 04/22/20 04/22/20 Range/Units 06:09 06:09 06:09 WBC (4.5-11.0) K/uL RBC (3.30-5.50) M/uL Hgb (12.0-15.0) g/dL Hct (36.0-48.0) % MCV (80-98) fL MCH (27-31) pg MCHC (32-36) % Plt Count (150-400) K/uL Neut % (Auto) (36-66) % Lymph % (Auto) (24-44) % Wright % (Auto) (2-6) % Eos % (Auto) (2-4) % Baso % (Auto) (0-1) % D-Dimer, Quantitative 2133.88 H (0.0-500.0) ng/mL Sodium 131 L (140-148) mmol/L Potassium 5.5 H (3.6-5.2) mmol/L Chloride 101 (100-108) mmol/L Carbon Dioxide 25 (21-32) mmol/L Anion Gap 10.5 (5.0-14.0) mmol/L BUN 45 H (7-18) mg/dL Creatinine 1.4 H (0.6-1.0) mg/dL Est Cr Clr Drug Dosing 25.64 mL/min Estimated GFR (MDRD) 35 L (>60) Glucose 210 H (74-106) mg/dL POC Glucose (74-106) MG/DL Calcium 8.2 L (8.5-10.1) mg/dL Ferritin 307 (8-388) ng/ml Total Bilirubin 0.6 (0.2-1.0) mg/dL AST 30 (15-37) U/L ALT 25 (12-78) U/L Alkaline Phosphatase 63 (46-116) U/L C-Reactive Protein 5.44 H (0.0-0.3) mg/dL Total Protein 5.6 L (6.4-8.2) g/dL Albumin 1.7 L (3.4-5.0) g/dL Globulin 3.9 H (2.3-3.5) g/dL Albumin/Globulin Ratio 0.4 L (1.2-2.2) 04/22/20 04/22/20 Range/Units 07:30 11:47 WBC (4.5-11.0) K/uL RBC (3.30-5.50) M/uL Hgb (12.0-15.0) g/dL Hct (36.0-48.0) % MCV (80-98) fL MCH (27-31) pg MCHC (32-36) % Plt Count (150-400) K/uL Neut % (Auto) (36-66) % Lymph % (Auto) (24-44) % Wright % (Auto) (2-6) % Eos % (Auto) (2-4) % Baso % (Auto) (0-1) % D-Dimer, Quantitative (0.0-500.0) ng/mL Sodium (140-148) mmol/L Potassium (3.6-5.2) mmol/L Chloride (100-108) mmol/L Carbon Dioxide (21-32) mmol/L Anion Gap (5.0-14.0) mmol/L BUN (7-18) mg/dL Creatinine (0.6-1.0) mg/dL Est Cr Clr Drug Dosing mL/min Estimated GFR (MDRD) (>60) Glucose (74-106) mg/dL POC Glucose 233 H 307 H (74-106) MG/DL Calcium (8.5-10.1) mg/dL Ferritin (8-388) ng/ml Total Bilirubin (0.2-1.0) mg/dL AST (15-37) U/L ALT (12-78) U/L Alkaline Phosphatase (46-116) U/L C-Reactive Protein (0.0-0.3) mg/dL Total Protein (6.4-8.2) g/dL Albumin (3.4-5.0) g/dL Globulin (2.3-3.5) g/dL Albumin/Globulin Ratio (1.2-2.2) Med Orders - Current: Current Medications Acetaminophen (Tylenol) 650 mg PO Q4H PRN PRN Reason: Pain (Mild 1-3)/fever Last Admin: 04/22/20 00:48 Dose: 650 mg Documented by: Albuterol (Ventolin Hfa) 2 gm INH Q4H PRN PRN Reason: Shortness of Breath Last Admin: 04/21/20 19:08 Dose: 2 puff Documented by: Allopurinol (Zyloprim) 200 mg PO DAILY [facility] Last Admin: 04/22/20 10:02 Dose: 200 mg Documented by: Aspirin (Aspirin) 81 mg PO DAILY [facility] Last Admin: 04/22/20 10:02 Dose: 81 mg Documented by: Benzocaine/Menthol (Cepacol Sore Throat) 1 lozenge MUCMEM ASDIRECTED PRN PRN Reason: SORE THROAT Last Admin: 04/22/20 00:54 Dose: 1 lozenge Documented by: Dexamethasone (Dexamethasone) 6 mg IVPUSH Q24H [facility] Last Admin: 04/21/20 19:46 Dose: 6 mg Documented by: Dextrose (Glutose 15) 15 gm PO ONETIME PRN PRN Reason: Hypoglycemia Dextrose/Water (Dextrose 50% In Water) 50 ml IV ONETIME PRN PRN Reason: Hypoglycemia Enoxaparin Sodium (Lovenox) 30 mg SUBCUT BEDTIME [facility] Last Admin: 04/21/20 20:34 Dose: Not Given Documented by: Gabapentin (Neurontin) 100 mg PO BEDTIME [facility] Last Admin: 04/21/20 20:35 Dose: Not Given Documented by: Insulin Glargine (Lantus Solostar) 24 units SUBCUT BEDTIME [facility] Last Admin: 04/21/20 21:07 Dose: 24 units Documented by: Insulin Human Lispro (Humalog) 0 unit SUBCUT QIDACANDBED [facility]; Protocol Last Admin: 04/22/20 11:49 Dose: 12 units Documented by: Lorazepam (Ativan) 0.5 mg IVPUSH Q2H PRN PRN Reason: Anxiety Last Admin: 04/18/20 07:55 Dose: 0.5 mg Documented by: Melatonin (Melatonin) 9 mg PO BEDTIME PRN PRN Reason: Insomnia Last Admin: 04/21/20 19:48 Dose: 9 mg Documented by: Ondansetron HCl (Zofran) 4 mg IV Q4H PRN PRN Reason: Nausea/Vomiting Oxycodone HCl (Oxycodone) 5 mg PO Q4H PRN PRN Reason: Pain Last Admin: 04/22/20 00:48 Dose: 5 mg Documented by: Polyethylene Glycol (Miralax) 17 gm PO DAILY PRN PRN Reason: Constipation Last Admin: 04/21/20 08:06 Dose: 17 gm Documented by: Sodium Chloride (Saline Flush) 10 ml FLUSH ASDIRECTED PRN PRN Reason: Keep Vein Open Last Admin: 04/15/20 09:45 Dose: 10 ml Documented by: Tamoxifen Citrate (Nolvadex) 20 mg PO DAILY [facility] Last Admin: 04/22/20 10:02 Dose: 20 mg Documented by: Discontinued Medications Acetaminophen (Tylenol) 650 mg PO ONCALL ONE Stop: 04/13/20 16:31 Last Admin: 04/13/20 17:02 Dose: 650 mg Documented by: Acetaminophen (Tylenol) 650 mg PO ONCALL ONE Stop: 04/14/20 14:31 Last Admin: 04/14/20 15:56 Dose: 650 mg Documented by: Acetaminophen (Tylenol) 650 mg PO ONCALL ONE Stop: 04/15/20 10:31 Last Admin: 04/15/20 09:44 Dose: 650 mg Documented by: Acetaminophen (Tylenol) 650 mg PO ONCALL ONE Stop: 04/16/20 09:01 Last Admin: 04/16/20 09:28 Dose: 650 mg Documented by: Albuterol (Proventil Neb Soln) 2.5 mg NEB Q4H PRN PRN Reason: Shortness Of Breath/wheezing Last Admin: 04/15/20 20:23 Dose: 2.5 mg Documented by: Benzocaine/Menthol (Cepacol Sore Throat) 1 lozenge MUCMEM ASDIRECTED PRN PRN Reason: SORE THROAT Benzocaine/Menthol (Cepacol Sore Throat) Confirm Administered Dose 1 lozenge .ROUTE .STK-MED ONE Stop: 04/12/20 21:32 Last Admin: 04/12/20 22:57 Dose: Not Given Documented by: Bisacodyl (Dulcolax) 5 mg PO DAILY [facility] Last Admin: 04/21/20 11:06 Dose: 5 mg Documented by: Dexamethasone (Dexamethasone) 6 mg IVPUSH ONETIME ONE Stop: 04/11/20 17:50 Last Admin: 04/11/20 18:08 Dose: 6 mg Documented by: Dexamethasone (Dexamethasone) Confirm Administered Dose 4 mg .ROUTE .STK-MED ONE Stop: 04/11/20 18:01 Last Admin: 04/11/20 18:11 Dose: Not Given Documented by: Diphenhydramine HCl (Benadryl) 25 mg IVPUSH ONCALL ONE Stop: 04/13/20 16:31 Last Admin: 04/13/20 17:02 Dose: 25 mg Documented by: Diphenhydramine HCl (Benadryl) 25 mg IVPUSH ONCALL ONE Stop: 04/14/20 14:31 Last Admin: 04/14/20 15:56 Dose: 25 mg Documented by: Diphenhydramine HCl (Benadryl) 25 mg PO ONCALL ONE Stop: 04/15/20 10:31 Last Admin: 04/15/20 09:46 Dose: 25 mg Documented by: Diphenhydramine HCl (Benadryl) 25 mg PO ONCALL ONE Stop: 04/16/20 09:01 Last Admin: 04/16/20 09:28 Dose: 25 mg Documented by: Enoxaparin Sodium (Lovenox) 30 mg SUBCUT DAILY [facility] Last Admin: 04/11/20 21:39 Dose: 30 mg Documented by: Furosemide (Lasix) 40 mg IVPUSH NOW ONE Stop: 04/16/20 12:01 Last Admin: 04/16/20 12:26 Dose: 40 mg Documented by: Furosemide (Lasix) 40 mg IV ONETIME ONE Stop: 04/22/20 12:01 Last Admin: 04/22/20 12:01 Dose: 40 mg Documented by: Sodium Chloride (Normal Saline) 1,000 mls @ 1,000 mls/hr IV ASDIRECTED [facility] Last Admin: 04/11/20 17:14 Dose: 1,000 mls/hr Documented by: Sodium Chloride (Normal Saline) 1,000 mls @ 50 mls/hr IV ASDIRECTED [facility] Last Admin: 04/11/20 22:32 Dose: 50 mls/hr Documented by: Sodium Chloride (Normal Saline) 250 mls @ 20 mls/hr IV ASDIRECTED [facility] Last Admin: 04/13/20 17:55 Dose: 20 mls/hr Documented by: Insulin Glargine (Lantus Solostar) 26 units SUBCUT BEDTIME [facility] Last Admin: 04/11/20 23:35 Dose: Not Given Documented by: Insulin Glargine (Lantus Solostar) 24 units SUBCUT BEDTIME [facility] Last Admin: 04/11/20 22:33 Dose: 24 units Documented by: Insulin Human Lispro (Humalog) 0 unit SUBCUT QIDACANDBED [facility]; Protocol Last Admin: 04/20/20 12:03 Dose: 6 units Documented by: Magnesium Hydroxide (Milk Of Magnesia) 30 ml PO DAILY [facility] Last Admin: 04/21/20 11:06 Dose: 30 ml Documented by: Senna/Docusate Sodium (Senna Plus) 1 tab PO BID [facility] Last Admin: 04/21/20 11:06 Dose: 1 tab Documented by: Sodium Polystyrene Sulfonate (Kayexalate) 15 gm PO ONETIME ONE Stop: 04/22/20 10:01 Last Admin: 04/22/20 11:34 Dose: 15 gm Documented by: - Exam Quality Assessment: Supplemental Oxygen, Urine Catheter, DVT Prophylaxis General: Alert, Oriented, Cooperative, Severe Distress Lungs: Decreased Breath Sounds, Crackles. No: Normal Respiratory Effort Cardiovascular: Regular Rate, Regular Rhythm, No Murmurs GI/Abdominal Exam: Normal Bowel Sounds, Soft Sepsis Event Note - Evaluation Sepsis Screening Result: No Definite Risk - Focused Exam Vital Signs: Vital Signs Temp Pulse Resp BP Pulse Ox 04/22/20 11:39 98.3 F 84 25 H 136/53 L 91 L 04/22/20 10:33 78 L 04/22/20 08:16 98.0 F 72 20 141/50 H 94 L 04/22/20 07:26 95 04/22/20 06:01 97.5 F 66 22 H 130/56 L 91 L 04/22/20 05:00 93 L 04/22/20 00:58 91 L - Problem List Review Problem List Initiated/Reviewed/Updated: Yes - My Orders Last 24 Hours: My Active Orders 04/22/20 12:47 Transfer Patient (Change bed) [ADT] Routine 04/22/20 16:30 GLUCOSE POC LAB TO COLLECT JPM [POC] QIDACANDBED 04/22/20 21:00 GLUCOSE POC LAB TO COLLECT JPM [POC] QIDACANDBED 04/23/20 05:00 C-REACTIVE PROTEIN [CHEM] DAILY CBC WITH AUTO DIFF [HEME] DAILY D-DIMER QUANTITATIVE [COAG] DAILY FERRITIN [CHEM] DAILY 04/23/20 07:30 GLUCOSE POC LAB TO COLLECT JPM [POC] QIDACANDBED 04/23/20 08:18 COMPREHENSIVE METABOLIC PN,CMP [CHEM] DAILY 04/23/20 11:30 GLUCOSE POC LAB TO COLLECT JPM [POC] QIDACANDBED 04/23/20 16:30 GLUCOSE POC LAB TO COLLECT JPM [POC] QIDACANDBED 04/23/20 21:00 GLUCOSE POC LAB TO COLLECT JPM [POC] QIDACANDBED 04/24/20 07:30 GLUCOSE POC LAB TO COLLECT JPM [POC] QIDACANDBED 04/24/20 11:30 GLUCOSE POC LAB TO COLLECT JPM [POC] QIDACANDBED 04/24/20 16:30 GLUCOSE POC LAB TO COLLECT JPM [POC] QIDACANDBED 04/24/20 21:00 GLUCOSE POC LAB TO COLLECT JPM [POC] QIDACANDBED 04/25/20 07:30 GLUCOSE POC LAB TO COLLECT JPM [POC] QIDACANDBED 04/25/20 11:30 GLUCOSE POC LAB TO COLLECT JPM [POC] QIDACANDBED 04/25/20 16:30 GLUCOSE POC LAB TO COLLECT JPM [POC] QIDACANDBED 04/25/20 21:00 GLUCOSE POC LAB TO COLLECT JPM [POC] QIDACANDBED 04/26/20 07:30 GLUCOSE POC LAB TO COLLECT JPM [POC] QIDACANDBED 04/26/20 11:30 GLUCOSE POC LAB TO COLLECT JPM [POC] QIDACANDBED 04/26/20 16:30 GLUCOSE POC LAB TO COLLECT JPM [POC] QIDACANDBED 04/26/20 21:00 GLUCOSE POC LAB TO COLLECT JPM [POC] QIDACANDBED - Plan Plan:: ASSESSMENT AND PLAN BILATERAL PNEUMONIA SECONDARY TO COVID-19- Patient has deteriorated suddenly today. She has gone for intermittent BiPAP to becoming BiPAP dependent with 60% FIO2. She may well need intubation today. She is still a FULL CODE. -Decadron 6 mg IV daily, today is day - Continue Decadron -Noninvasive positive pressure ventilation -Patient now dependent on this -Supportive care, she refuses prone ventilation - Continue convalescent plasma - Given severity of situation and imminent risk to patient of irreversible compromise, discussed starting remdesivir today despite being a suboptimal candidate from the renal perspective. - Load 200 mg IV remdesivir today (Day 06/21) - Follow with 100 mg iV daily -Lasix 40 mg IV x 1 - Place peralta catheter to facilitate I&O -Saline lock IV -Supplemental oxygen as needed -Inhalers as needed CHRONIC KIDNEY DISEASE STAGE IV-renal function has remained stable through hospitalization -Closely monitor urine output and renal function TYPE 2 DIABETES MELLITUS -Continue usual dose of long-acting insulin -4 times daily glucometers -Moderate dose sliding scale Humalog MAINTENANCE ISSUES -DVT prophylaxis; Lovenox 30 mg subcu daily -GI prophylaxis; not indicated -Peralta catheter; not indicated -Nutrition; consistent carbohydrate diet -Nicotine dependence; not required CODE STATUS-FULL CODE; I discussed this with the patient when she was seen in the emergency department and she is adamant about aggressive care including intubation if needed ADMISSION STATUS-patient will be admitted to inpatient status, expect at least a 2 night hospital stay for evaluation and management of problems as outlined above. At the time of this admission I do not reasonably expected evaluation and management of this problem will require more than a 96 hour hospital stay. DISPOSITION-anticipate discharge to home after the hospital stay. PRIMARY CARE PROVIDER- HOSPITALIST: Markos Ridley M.D. 04/22/2020
[2020-04-22] MEDS ORDERED: REMDESIVIR 200 MG in Sodium Chloride 0.9% 250 ML IV ONE (14:00)
[2020-04-22] MEDS: Dexamethasone 4 MG/ML SDV IVPUSH SCH (18:05)
[2020-04-22] MEDS: Gabapentin 100 MG Cap PO SCH (20:11)
[2020-04-22] MEDS: Enoxaparin 30 MG/0.3 ML Syringe SUBCUT SCH (20:11)
[2020-04-22] MEDS: Insulin Glargine,Human Rec. Analog 100 Units/ML 3 ML Pen SUBCUT SCH (20:16)
[2020-04-22] MEDS ORDERED: Furosemide 40 MG/4 ML VIAL IVPUSH ONE (21:15)
[2020-04-23] MEDS: Allopurinol 100 MG Tab PO SCH (08:22)
[2020-04-23] MEDS: Tamoxifen 10 MG Tab PO SCH (08:22)
[2020-04-23] MEDS: Aspirin 81 MG Tab.Chew PO SCH (08:22)
[2020-04-23] MEDS: Insulin Lispro 100 Unit/ML 3 ML KwikPen SUBCUT SCH ×4 (08:36→20:35)
--- NOTE | 2020-04-23 12:36 | PCM.PN ---
- General Info Date of Service: 04/23/20 Admission Dx/Problem (Free Text): 1. COVID 19 PNA 2. DVT 3. Possible PE Subjective Update: Patient had experienced significant decompensation on 04/22. She had been given additional lasix and maintained on continuous BiPAP and seems to have done well. She is now back to 15 L HFNC. She was noted to have DVT on US this AM. Functional Status: Reports: Pain Controlled - Review of Systems General: Reports: Weakness, Fatigue HEENT: Reports: No Symptoms Pulmonary: Reports: Shortness of Breath, Cough Cardiovascular: Reports: No Symptoms Gastrointestinal: Reports: No Symptoms - Patient Data Vitals - Most Recent: Last Vital Signs Temp 98.1 F 04/23/20 08:00 Pulse 71 04/23/20 06:00 Resp 19 04/23/20 11:00 BP 129/46 L 04/23/20 11:00 Pulse Ox 93 L 04/23/20 11:00 Weight - Most Recent: 157 lb 9.594 oz I&O - Last 24 Hours: Intake & Output 04/22/20 04/23/20 04/23/20 22:59 06:59 14:59 Intake Total 200 120 Output Total 850 1250 Balance -650 -1130 Lab Results Last 24 Hours: Laboratory Results - last 24 hr 04/23/20 04/23/20 04/23/20 Range/Units 06:00 06:00 06:00 WBC 8.2 (4.5-11.0) K/uL RBC 3.74 (3.30-5.50) M/uL Hgb 11.4 L (12.0-15.0) g/dL Hct 35.8 L (36.0-48.0) % MCV 96 (80-98) fL MCH 31 (27-31) pg MCHC 32 (32-36) % Plt Count 213 (150-400) K/uL Neut % (Auto) 88 H (36-66) % Lymph % (Auto) 8 L (24-44) % [place] % (Auto) 4 (2-6) % Eos % (Auto) 0 L (2-4) % Baso % (Auto) 0 (0-1) % D-Dimer, Quantitative 3260.59 H (0.0-500.0) ng/mL Sodium (140-148) mmol/L Potassium (3.6-5.2) mmol/L Chloride (100-108) mmol/L Carbon Dioxide (21-32) mmol/L Anion Gap (5.0-14.0) mmol/L BUN (7-18) mg/dL Creatinine (0.6-1.0) mg/dL Est Cr Clr Drug Dosing mL/min Estimated GFR (MDRD) (>60) Glucose (74-106) mg/dL Calcium (8.5-10.1) mg/dL Ferritin 315 (8-388) ng/ml Total Bilirubin (0.2-1.0) mg/dL AST (15-37) U/L ALT (12-78) U/L Alkaline Phosphatase (46-116) U/L C-Reactive Protein 4.35 H (0.0-0.3) mg/dL Total Protein (6.4-8.2) g/dL Albumin (3.4-5.0) g/dL Globulin (2.3-3.5) g/dL Albumin/Globulin Ratio (1.2-2.2) 04/23/20 Range/Units 06:00 WBC (4.5-11.0) K/uL RBC (3.30-5.50) M/uL Hgb (12.0-15.0) g/dL Hct (36.0-48.0) % MCV (80-98) fL MCH (27-31) pg MCHC (32-36) % Plt Count (150-400) K/uL Neut % (Auto) (36-66) % Lymph % (Auto) (24-44) % [place] % (Auto) (2-6) % Eos % (Auto) (2-4) % Baso % (Auto) (0-1) % D-Dimer, Quantitative (0.0-500.0) ng/mL Sodium 135 L (140-148) mmol/L Potassium 4.7 (3.6-5.2) mmol/L Chloride 100 (100-108) mmol/L Carbon Dioxide 27 (21-32) mmol/L Anion Gap 12.7 (5.0-14.0) mmol/L BUN 51 H (7-18) mg/dL Creatinine 1.4 H (0.6-1.0) mg/dL Est Cr Clr Drug Dosing 25.64 mL/min Estimated GFR (MDRD) 35 L (>60) Glucose 218 H (74-106) mg/dL Calcium 8.2 L (8.5-10.1) mg/dL Ferritin (8-388) ng/ml Total Bilirubin 0.3 (0.2-1.0) mg/dL AST 31 (15-37) U/L ALT 27 (12-78) U/L Alkaline Phosphatase 69 (46-116) U/L C-Reactive Protein (0.0-0.3) mg/dL Total Protein 5.8 L (6.4-8.2) g/dL Albumin 1.8 L (3.4-5.0) g/dL Globulin 4.0 H (2.3-3.5) g/dL Albumin/Globulin Ratio 0.5 L (1.2-2.2) Med Orders - Current: Current Medications Acetaminophen (Tylenol) 650 mg PO Q4H PRN PRN Reason: Pain (Mild 1-3)/fever Last Admin: 04/22/20 00:48 Dose: 650 mg Documented by: Albuterol (Ventolin Hfa) 2 gm INH Q4H PRN PRN Reason: Shortness of Breath Last Admin: 04/21/20 19:08 Dose: 2 puff Documented by: Allopurinol (Zyloprim) 200 mg PO DAILY [facility] Last Admin: 04/23/20 08:22 Dose: 200 mg Documented by: Aspirin (Aspirin) 81 mg PO DAILY [facility] Last Admin: 04/23/20 08:22 Dose: 81 mg Documented by: Benzocaine/Menthol (Cepacol Sore Throat) 1 lozenge MUCMEM ASDIRECTED PRN PRN Reason: SORE THROAT Last Admin: 04/22/20 00:54 Dose: 1 lozenge Documented by: Dexamethasone (Dexamethasone) 6 mg IVPUSH Q24H [facility] Last Admin: 04/22/20 18:05 Dose: 6 mg Documented by: Dextrose (Glutose 15) 15 gm PO ONETIME PRN PRN Reason: Hypoglycemia Dextrose/Water (Dextrose 50% In Water) 50 ml IV ONETIME PRN PRN Reason: Hypoglycemia Enoxaparin Sodium (Lovenox) 70 mg SUBCUT Q24H [facility] Gabapentin (Neurontin) 100 mg PO BEDTIME [facility] Last Admin: 04/22/20 20:11 Dose: 100 mg Documented by: Remdesivir 100 mg/ Sodium (Chloride) 100 mls @ 100 mls/hr IV Q24H [facility] Stop: 04/26/20 14:59 Insulin Glargine (Lantus Solostar) 24 units SUBCUT BEDTIME [facility] Last Admin: 04/22/20 20:16 Dose: 24 units Documented by: Insulin Human Lispro (Humalog) 0 unit SUBCUT QIDACANDBED [facility]; Protocol Last Admin: 04/23/20 08:36 Dose: 3 units Documented by: Lorazepam (Ativan) 0.5 mg IVPUSH Q2H PRN PRN Reason: Anxiety Last Admin: 04/18/20 07:55 Dose: 0.5 mg Documented by: Melatonin (Melatonin) 9 mg PO BEDTIME PRN PRN Reason: Insomnia Last Admin: 04/21/20 19:48 Dose: 9 mg Documented by: Ondansetron HCl (Zofran) 4 mg IV Q4H PRN PRN Reason: Nausea/Vomiting Oxycodone HCl (Oxycodone) 5 mg PO Q4H PRN PRN Reason: Pain Last Admin: 04/22/20 00:48 Dose: 5 mg Documented by: Polyethylene Glycol (Miralax) 17 gm PO DAILY PRN PRN Reason: Constipation Last Admin: 04/21/20 08:06 Dose: 17 gm Documented by: Sodium Chloride (Saline Flush) 10 ml FLUSH ASDIRECTED PRN PRN Reason: Keep Vein Open Last Admin: 04/15/20 09:45 Dose: 10 ml Documented by: Tamoxifen Citrate (Nolvadex) 20 mg PO DAILY [facility] Last Admin: 04/23/20 08:22 Dose: 20 mg Documented by: Discontinued Medications Acetaminophen (Tylenol) 650 mg PO ONCALL ONE Stop: 04/13/20 16:31 Last Admin: 04/13/20 17:02 Dose: 650 mg Documented by: Acetaminophen (Tylenol) 650 mg PO ONCALL ONE Stop: 04/14/20 14:31 Last Admin: 04/14/20 15:56 Dose: 650 mg Documented by: Acetaminophen (Tylenol) 650 mg PO ONCALL ONE Stop: 04/15/20 10:31 Last Admin: 04/15/20 09:44 Dose: 650 mg Documented by: Acetaminophen (Tylenol) 650 mg PO ONCALL ONE Stop: 04/16/20 09:01 Last Admin: 04/16/20 09:28 Dose: 650 mg Documented by: Albuterol (Proventil Neb Soln) 2.5 mg NEB Q4H PRN PRN Reason: Shortness Of Breath/wheezing Last Admin: 04/15/20 20:23 Dose: 2.5 mg Documented by: Benzocaine/Menthol (Cepacol Sore Throat) 1 lozenge MUCMEM ASDIRECTED PRN PRN Reason: SORE THROAT Benzocaine/Menthol (Cepacol Sore Throat) Confirm Administered Dose 1 lozenge .ROUTE .STK-MED ONE Stop: 04/12/20 21:32 Last Admin: 04/12/20 22:57 Dose: Not Given Documented by: Bisacodyl (Dulcolax) 5 mg PO DAILY [facility] Last Admin: 04/21/20 11:06 Dose: 5 mg Documented by: Dexamethasone (Dexamethasone) 6 mg IVPUSH ONETIME ONE Stop: 04/11/20 17:50 Last Admin: 04/11/20 18:08 Dose: 6 mg Documented by: Dexamethasone (Dexamethasone) Confirm Administered Dose 4 mg .ROUTE .STK-MED ONE Stop: 04/11/20 18:01 Last Admin: 04/11/20 18:11 Dose: Not Given Documented by: Diphenhydramine HCl (Benadryl) 25 mg IVPUSH ONCALL ONE Stop: 04/13/20 16:31 Last Admin: 04/13/20 17:02 Dose: 25 mg Documented by: Diphenhydramine HCl (Benadryl) 25 mg IVPUSH ONCALL ONE Stop: 04/14/20 14:31 Last Admin: 04/14/20 15:56 Dose: 25 mg Documented by: Diphenhydramine HCl (Benadryl) 25 mg PO ONCALL ONE Stop: 04/15/20 10:31 Last Admin: 04/15/20 09:46 Dose: 25 mg Documented by: Diphenhydramine HCl (Benadryl) 25 mg PO ONCALL ONE Stop: 04/16/20 09:01 Last Admin: 04/16/20 09:28 Dose: 25 mg Documented by: Enoxaparin Sodium (Lovenox) 30 mg SUBCUT DAILY [facility] Last Admin: 04/11/20 21:39 Dose: 30 mg Documented by: Enoxaparin Sodium (Lovenox) 30 mg SUBCUT BEDTIME [facility] Last Admin: 04/22/20 20:11 Dose: 30 mg Documented by: Furosemide (Lasix) 40 mg IVPUSH NOW ONE Stop: 04/16/20 12:01 Last Admin: 04/16/20 12:26 Dose: 40 mg Documented by: Furosemide (Lasix) 40 mg IV ONETIME ONE Stop: 04/22/20 12:01 Last Admin: 04/22/20 12:01 Dose: 40 mg Documented by: Furosemide (Lasix) 40 mg IVPUSH ONETIME ONE Stop: 04/22/20 21:16 Last Admin: 04/22/20 21:46 Dose: 40 mg Documented by: Sodium Chloride (Normal Saline) 1,000 mls @ 1,000 mls/hr IV ASDIRECTED [facility] Last Admin: 04/11/20 17:14 Dose: 1,000 mls/hr Documented by: Sodium Chloride (Normal Saline) 1,000 mls @ 50 mls/hr IV ASDIRECTED [facility] Last Admin: 04/11/20 22:32 Dose: 50 mls/hr Documented by: Sodium Chloride (Normal Saline) 250 mls @ 20 mls/hr IV ASDIRECTED [facility] Last Admin: 04/13/20 17:55 Dose: 20 mls/hr Documented by: Remdesivir 200 mg/ Sodium (Chloride) 250 mls @ 250 mls/hr IV ONETIME ONE Stop: 04/22/20 14:59 Last Admin: 04/22/20 14:23 Dose: 250 mls/hr Documented by: Insulin Glargine (Lantus Solostar) 26 units SUBCUT BEDTIME [facility] Last Admin: 04/11/20 23:35 Dose: Not Given Documented by: Insulin Glargine (Lantus Solostar) 24 units SUBCUT BEDTIME [facility] Last Admin: 04/11/20 22:33 Dose: 24 units Documented by: Insulin Human Lispro (Humalog) 0 unit SUBCUT QIDACANDBED [facility]; Protocol Last Admin: 04/20/20 12:03 Dose: 6 units Documented by: Magnesium Hydroxide (Milk Of Magnesia) 30 ml PO DAILY [facility] Last Admin: 04/21/20 11:06 Dose: 30 ml Documented by: Senna/Docusate Sodium (Senna Plus) 1 tab PO BID [facility] Last Admin: 04/21/20 11:06 Dose: 1 tab Documented by: Sodium Polystyrene Sulfonate (Kayexalate) 15 gm PO ONETIME ONE Stop: 04/22/20 10:01 Last Admin: 04/22/20 11:34 Dose: 15 gm Documented by: - Exam Quality Assessment: Supplemental Oxygen, DVT Prophylaxis (Has DVT, increasing lovenox to therapeutic) General: Alert, Moderate Distress Lungs: Decreased Breath Sounds, Crackles Cardiovascular: Regular Rate, Regular Rhythm Sepsis Event Note - Evaluation Sepsis Screening Result: No Definite Risk - Focused Exam Vital Signs: Vital Signs Temp Pulse Resp BP Pulse Ox 04/23/20 11:00 19 129/46 L 93 L 04/23/20 10:00 24 H 119/43 L 93 L 04/23/20 09:00 18 125/55 L 93 L 04/23/20 08:00 98.1 F 13 144/63 H 89 L 04/23/20 07:00 17 139/58 L 94 L 04/23/20 06:00 71 18 129/52 L 92 L 04/23/20 05:00 76 19 125/58 L 93 L 04/23/20 04:00 75 17 115/55 L 94 L 04/23/20 03:00 71 20 117/50 L 90 L 04/23/20 02:00 98.1 F 77 20 125/53 L 94 L 04/23/20 01:00 69 18 129/65 94 L - Problem List Review Problem List Initiated/Reviewed/Updated: Yes - My Orders Last 24 Hours: My Active Orders 04/22/20 12:47 Transfer Patient (Change bed) [ADT] Routine 04/23/20 08:42 VL Duplex Lwr Ext Veins Comp [US] Routine 04/23/20 14:00 Remdesivir (Eua) [Remdesivir (EUA)] 100 mg Sodium Chloride 0.9% [Normal Saline] 100 ml IV Q24H 04/24/20 07:30 GLUCOSE POC LAB TO COLLECT JPM [POC] QIDACANDBED 04/24/20 11:30 GLUCOSE POC LAB TO COLLECT JPM [POC] QIDACANDBED 04/24/20 16:30 GLUCOSE POC LAB TO COLLECT JPM [POC] QIDACANDBED 04/24/20 21:00 GLUCOSE POC LAB TO COLLECT JPM [POC] QIDACANDBED 04/25/20 07:30 GLUCOSE POC LAB TO COLLECT JPM [POC] QIDACANDBED 04/25/20 11:30 GLUCOSE POC LAB TO COLLECT JPM [POC] QIDACANDBED 04/25/20 16:30 GLUCOSE POC LAB TO COLLECT JPM [POC] QIDACANDBED 04/25/20 21:00 GLUCOSE POC LAB TO COLLECT JPM [POC] QIDACANDBED 04/26/20 07:30 GLUCOSE POC LAB TO COLLECT JPM [POC] QIDACANDBED 04/26/20 11:30 GLUCOSE POC LAB TO COLLECT JPM [POC] QIDACANDBED 04/26/20 16:30 GLUCOSE POC LAB TO COLLECT JPM [POC] QIDACANDBED 04/26/20 21:00 GLUCOSE POC LAB TO COLLECT JPM [POC] QIDACANDBED - Plan Plan:: ASSESSMENT AND PLAN BILATERAL PNEUMONIA SECONDARY TO COVID-19- Patient has deteriorated suddenly today. She has gone for intermittent BiPAP to becoming BiPAP dependent with 60% FIO2. She may well need intubation today. She is still a FULL CODE. -Decadron 6 mg IV daily, today is day 10 10 - Continue Decadron -Noninvasive positive pressure ventilation -Patient now dependent on this -Supportive care, she refuses prone ventilation - Continue convalescent plasma - Given severity of situation and imminent risk to patient of irreversible compromise, started remdesivir today despite being a suboptimal candidate from the renal perspective. - Thus far tolerating remdesivir well, creatinine stable. - Load 200 mg IV remdesivir today (Day 07/22) - Follow with 100 mg IV daily -Lasix 40 mg IV x 1 -Place peralta catheter to facilitate I&O -Saline lock IV -Supplemental oxygen as needed -Inhalers as needed CHRONIC KIDNEY DISEASE STAGE IV-renal function has remained stable through hospitalization -Closely monitor urine output and renal function TYPE 2 DIABETES MELLITUS -Continue usual dose of long-acting insulin -4 times daily glucometers -Moderate dose sliding scale Humalog MAINTENANCE ISSUES -DVT prophylaxis; Lovenox 30 mg subcu daily -GI prophylaxis; not indicated -Peralta catheter; not indicated -Nutrition; consistent carbohydrate diet -Nicotine dependence; not required CODE STATUS-FULL CODE; I discussed this with the patient when she was seen in the emergency department and she is adamant about aggressive care including intubation if needed ADMISSION STATUS-patient will be admitted to inpatient status, expect at least a 2 night hospital stay for evaluation and management of problems as outlined above. At the time of this admission I do not reasonably expected evaluation and management of this problem will require more than a 96 hour hospital stay. DISPOSITION-anticipate discharge to home after the hospital stay. PRIMARY CARE PROVIDER- HOSPITALIST: Markos Ridley M.D. 04/22/2020
--- NOTE | 2020-04-23 12:47 | CRLUS ---
INDICATION: HYPOXIA, DYSPNEA INDICATION: Hypoxia. Lower extremity pain and swelling. TECHNIQUE: : Ultrasound venous duplex lower extremity bilateral. Compression venous exam was performed using wise-scale, color Doppler, and spectral Doppler imaging. COMPARISON: None. FINDINGS: Sonographic imaging demonstrates the right common femoral, deep femoral, superficial femoral, popliteal, posterior tibial and greater saphenous veins to be fully compressible with normal color Doppler blood flow in both lower extremities. There is an acute appearing DVT, with distention of the lumen, involving the left popliteal vein. This vessel is noncompressible. This is seen best on image 66 of series 1. Remainder of the deep veins of the left lower extremity are patent and negative for DVT. IMPRESSION: 1. Acute appearing DVT in the left popliteal vein. 2. Remainder of the deep veins of both lower extremities are patent and negative for DVT. 3. Report called to Dr. Ridley, referring clinical service, 04/23/20, 1245 pm. Dictated by Ace Benson MD @ 04/23/2020 12:46:45 PM Dictated by: Ace Benson MD @ 04/23/2020 12:46:50 (Electronically Signed)
[2020-04-23] MEDS: REMDESIVIR 100 MG in Sodium Chloride 0.9% 100 ML IV SCH (14:30)
[2020-04-23] MEDS: Enoxaparin 80 MG/0.8 ML Syringe SUBCUT SCH (15:41)
[2020-04-23] MEDS: Benzocaine/Cetylpyridinium/Menthol Lozenge MUCMEM PRN ×2 (15:44→17:55)
[2020-04-23] MEDS: Acetaminophen 325 MG Tab PO PRN (17:45)
[2020-04-23] MEDS: Dexamethasone 4 MG/ML SDV IVPUSH SCH (18:00)
[2020-04-23] MEDS: Gabapentin 100 MG Cap PO SCH (20:33)
[2020-04-23] MEDS: Insulin Glargine,Human Rec. Analog 100 Units/ML 3 ML Pen SUBCUT SCH (20:33)
[2020-04-23] MEDS: Melatonin 3 MG Tab PO PRN (20:44)
[2020-04-24] MEDS: Insulin Lispro 100 Unit/ML 3 ML KwikPen SUBCUT SCH ×4 (08:15→20:27)
[2020-04-24] MEDS: Allopurinol 100 MG Tab PO SCH (08:16)
[2020-04-24] MEDS: Aspirin 81 MG Tab.Chew PO SCH (08:16)
[2020-04-24] MEDS: Tamoxifen 10 MG Tab PO SCH (08:16)
--- NOTE | 2020-04-24 13:19 | PCM.PN ---
- General Info Date of Service: 04/24/20 Admission Dx/Problem (Free Text): 1. COVID 19 PNA 2. Hypoxia Subjective Update: Patient is starting to slightly improve with oxygen down to 12 L. Oxygenation improving. Patient subjectively feeling better, tolerating oxygen better. Speaking in full sentences. Denies any other issues. Functional Status: Reports: Pain Controlled, Tolerating Diet. Denies: New Symptoms - Review of Systems General: Reports: Fever, Weakness HEENT: Reports: No Symptoms Pulmonary: Reports: Shortness of Breath, Cough Cardiovascular: Reports: No Symptoms Gastrointestinal: Reports: No Symptoms Musculoskeletal: Reports: No Symptoms Skin: Reports: No Symptoms Neurological: Reports: No Symptoms - Patient Data Vitals - Most Recent: Last Vital Signs Temp 97.5 F 04/24/20 12:00 Pulse 79 04/24/20 06:00 Resp 23 H 04/24/20 12:00 BP 132/52 L 04/24/20 12:00 Pulse Ox 91 L 04/24/20 12:00 Weight - Most Recent: 157 lb 9.594 oz I&O - Last 24 Hours: Intake & Output 04/23/20 04/24/20 04/24/20 22:59 06:59 14:59 Intake Total 300 200 400 Output Total 625 350 Balance -325 -150 400 Lab Results Last 24 Hours: Laboratory Results - last 24 hr 04/24/20 04/24/20 04/24/20 Range/Units 09:32 09:32 09:32 WBC 10.6 (4.5-11.0) K/uL RBC 4.00 (3.30-5.50) M/uL Hgb 12.3 (12.0-15.0) g/dL Hct 38.2 (36.0-48.0) % MCV 96 (80-98) fL MCH 31 (27-31) pg MCHC 32 (32-36) % Plt Count 181 (150-400) K/uL Neut % (Auto) 91 H (36-66) % Lymph % (Auto) 5 L (24-44) % [place] % (Auto) 4 (2-6) % Eos % (Auto) 0 L (2-4) % Baso % (Auto) 0 (0-1) % D-Dimer, Quantitative 2719.89 H (0.0-500.0) ng/mL Sodium 138 L (140-148) mmol/L Potassium 4.0 (3.6-5.2) mmol/L Chloride 102 (100-108) mmol/L Carbon Dioxide 27 (21-32) mmol/L Anion Gap 13.0 (5.0-14.0) mmol/L BUN 60 H (7-18) mg/dL Creatinine 1.5 H (0.6-1.0) mg/dL Est Cr Clr Drug Dosing 23.93 mL/min Estimated GFR (MDRD) 33 L (>60) Glucose 207 H (74-106) mg/dL Calcium 8.5 (8.5-10.1) mg/dL Ferritin 326 (8-388) ng/ml Total Bilirubin 0.4 (0.2-1.0) mg/dL AST 48 H (15-37) U/L ALT 37 (12-78) U/L Alkaline Phosphatase 76 (46-116) U/L C-Reactive Protein 3.97 H (0.0-0.3) mg/dL Total Protein 6.0 L (6.4-8.2) g/dL Albumin 1.9 L (3.4-5.0) g/dL Globulin 4.1 H (2.3-3.5) g/dL Albumin/Globulin Ratio 0.5 L (1.2-2.2) Med Orders - Current: Current Medications Acetaminophen (Tylenol) 650 mg PO Q4H PRN PRN Reason: Pain (Mild 1-3)/fever Last Admin: 04/23/20 17:45 Dose: 650 mg Documented by: Albuterol (Ventolin Hfa) 2 gm INH Q4H PRN PRN Reason: Shortness of Breath Last Admin: 04/21/20 19:08 Dose: 2 puff Documented by: Allopurinol (Zyloprim) 200 mg PO DAILY [facility] Last Admin: 04/24/20 08:16 Dose: 200 mg Documented by: Aspirin (Aspirin) 81 mg PO DAILY [facility] Last Admin: 04/24/20 08:16 Dose: 81 mg Documented by: Benzocaine/Menthol (Cepacol Sore Throat) 1 lozenge MUCMEM ASDIRECTED PRN PRN Reason: SORE THROAT Last Admin: 04/23/20 17:55 Dose: 1 lozenge Documented by: Dexamethasone (Dexamethasone) 6 mg IVPUSH Q24H [facility] Last Admin: 04/23/20 18:00 Dose: 6 mg Documented by: Dextrose (Glutose 15) 15 gm PO ONETIME PRN PRN Reason: Hypoglycemia Dextrose/Water (Dextrose 50% In Water) 50 ml IV ONETIME PRN PRN Reason: Hypoglycemia Enoxaparin Sodium (Lovenox) 70 mg SUBCUT Q24H [facility] Last Admin: 04/23/20 15:41 Dose: 70 mg Documented by: Gabapentin (Neurontin) 100 mg PO BEDTIME [facility] Last Admin: 04/23/20 20:33 Dose: 100 mg Documented by: Remdesivir 100 mg/ Sodium (Chloride) 100 mls @ 100 mls/hr IV Q24H [facility] Stop: 04/26/20 14:59 Last Admin: 04/23/20 14:30 Dose: 100 mls/hr Documented by: Insulin Glargine (Lantus Solostar) 24 units SUBCUT BEDTIME [facility] Last Admin: 04/23/20 20:33 Dose: 24 units Documented by: Insulin Human Lispro (Humalog) 0 unit SUBCUT QIDACANDBED [facility]; Protocol Last Admin: 04/24/20 11:42 Dose: 9 units Documented by: Lorazepam (Ativan) 0.5 mg IVPUSH Q2H PRN PRN Reason: Anxiety Last Admin: 04/18/20 07:55 Dose: 0.5 mg Documented by: Melatonin (Melatonin) 9 mg PO BEDTIME PRN PRN Reason: Insomnia Last Admin: 04/23/20 20:44 Dose: 9 mg Documented by: Ondansetron HCl (Zofran) 4 mg IV Q4H PRN PRN Reason: Nausea/Vomiting Oxycodone HCl (Oxycodone) 5 mg PO Q4H PRN PRN Reason: Pain Last Admin: 04/22/20 00:48 Dose: 5 mg Documented by: Polyethylene Glycol (Miralax) 17 gm PO DAILY PRN PRN Reason: Constipation Last Admin: 04/21/20 08:06 Dose: 17 gm Documented by: Sodium Chloride (Saline Flush) 10 ml FLUSH ASDIRECTED PRN PRN Reason: Keep Vein Open Last Admin: 04/15/20 09:45 Dose: 10 ml Documented by: Tamoxifen Citrate (Nolvadex) 20 mg PO DAILY [facility] Last Admin: 04/24/20 08:16 Dose: 20 mg Documented by: Discontinued Medications Acetaminophen (Tylenol) 650 mg PO ONCALL ONE Stop: 04/13/20 16:31 Last Admin: 04/13/20 17:02 Dose: 650 mg Documented by: Acetaminophen (Tylenol) 650 mg PO ONCALL ONE Stop: 04/14/20 14:31 Last Admin: 04/14/20 15:56 Dose: 650 mg Documented by: Acetaminophen (Tylenol) 650 mg PO ONCALL ONE Stop: 04/15/20 10:31 Last Admin: 04/15/20 09:44 Dose: 650 mg Documented by: Acetaminophen (Tylenol) 650 mg PO ONCALL ONE Stop: 04/16/20 09:01 Last Admin: 04/16/20 09:28 Dose: 650 mg Documented by: Albuterol (Proventil Neb Soln) 2.5 mg NEB Q4H PRN PRN Reason: Shortness Of Breath/wheezing Last Admin: 04/15/20 20:23 Dose: 2.5 mg Documented by: Benzocaine/Menthol (Cepacol Sore Throat) 1 lozenge MUCMEM ASDIRECTED PRN PRN Reason: SORE THROAT Benzocaine/Menthol (Cepacol Sore Throat) Confirm Administered Dose 1 lozenge .ROUTE .STK-MED ONE Stop: 04/12/20 21:32 Last Admin: 04/12/20 22:57 Dose: Not Given Documented by: Bisacodyl (Dulcolax) 5 mg PO DAILY [facility] Last Admin: 04/21/20 11:06 Dose: 5 mg Documented by: Dexamethasone (Dexamethasone) 6 mg IVPUSH ONETIME ONE Stop: 04/11/20 17:50 Last Admin: 04/11/20 18:08 Dose: 6 mg Documented by: Dexamethasone (Dexamethasone) Confirm Administered Dose 4 mg .ROUTE .STK-MED ONE Stop: 04/11/20 18:01 Last Admin: 04/11/20 18:11 Dose: Not Given Documented by: Diphenhydramine HCl (Benadryl) 25 mg IVPUSH ONCALL ONE Stop: 04/13/20 16:31 Last Admin: 04/13/20 17:02 Dose: 25 mg Documented by: Diphenhydramine HCl (Benadryl) 25 mg IVPUSH ONCALL ONE Stop: 04/14/20 14:31 Last Admin: 04/14/20 15:56 Dose: 25 mg Documented by: Diphenhydramine HCl (Benadryl) 25 mg PO ONCALL ONE Stop: 04/15/20 10:31 Last Admin: 04/15/20 09:46 Dose: 25 mg Documented by: Diphenhydramine HCl (Benadryl) 25 mg PO ONCALL ONE Stop: 04/16/20 09:01 Last Admin: 04/16/20 09:28 Dose: 25 mg Documented by: Enoxaparin Sodium (Lovenox) 30 mg SUBCUT DAILY [facility] Last Admin: 04/11/20 21:39 Dose: 30 mg Documented by: Enoxaparin Sodium (Lovenox) 30 mg SUBCUT BEDTIME [facility] Last Admin: 04/22/20 20:11 Dose: 30 mg Documented by: Furosemide (Lasix) 40 mg IVPUSH NOW ONE Stop: 04/16/20 12:01 Last Admin: 04/16/20 12:26 Dose: 40 mg Documented by: Furosemide (Lasix) 40 mg IV ONETIME ONE Stop: 04/22/20 12:01 Last Admin: 04/22/20 12:01 Dose: 40 mg Documented by: Furosemide (Lasix) 40 mg IVPUSH ONETIME ONE Stop: 04/22/20 21:16 Last Admin: 04/22/20 21:46 Dose: 40 mg Documented by: Sodium Chloride (Normal Saline) 1,000 mls @ 1,000 mls/hr IV ASDIRECTED [facility] Last Admin: 04/11/20 17:14 Dose: 1,000 mls/hr Documented by: Sodium Chloride (Normal Saline) 1,000 mls @ 50 mls/hr IV ASDIRECTED [facility] Last Admin: 04/11/20 22:32 Dose: 50 mls/hr Documented by: Sodium Chloride (Normal Saline) 250 mls @ 20 mls/hr IV ASDIRECTED [facility] Last Admin: 04/13/20 17:55 Dose: 20 mls/hr Documented by: Remdesivir 200 mg/ Sodium (Chloride) 250 mls @ 250 mls/hr IV ONETIME ONE Stop: 04/22/20 14:59 Last Admin: 04/22/20 14:23 Dose: 250 mls/hr Documented by: Insulin Glargine (Lantus Solostar) 26 units SUBCUT BEDTIME [facility] Last Admin: 04/11/20 23:35 Dose: Not Given Documented by: Insulin Glargine (Lantus Solostar) 24 units SUBCUT BEDTIME [facility] Last Admin: 04/11/20 22:33 Dose: 24 units Documented by: Insulin Human Lispro (Humalog) 0 unit SUBCUT QIDACANDBED [facility]; Protocol Last Admin: 04/20/20 12:03 Dose: 6 units Documented by: Magnesium Hydroxide (Milk Of Magnesia) 30 ml PO DAILY [facility] Last Admin: 04/21/20 11:06 Dose: 30 ml Documented by: Senna/Docusate Sodium (Senna Plus) 1 tab PO BID [facility] Last Admin: 04/21/20 11:06 Dose: 1 tab Documented by: Sodium Polystyrene Sulfonate (Kayexalate) 15 gm PO ONETIME ONE Stop: 04/22/20 10:01 Last Admin: 04/22/20 11:34 Dose: 15 gm Documented by: - Exam Quality Assessment: Supplemental Oxygen, Urine Catheter, DVT Prophylaxis General: Alert, Oriented, Cooperative, No Acute Distress Lungs: Crackles. No: Clear to Auscultation, Normal Respiratory Effort Cardiovascular: Regular Rate, Regular Rhythm, No Murmurs GI/Abdominal Exam: Normal Bowel Sounds, Soft, Non-Tender, No Distention, No Abnormal Bruit Extremities: Normal Inspection Skin: Warm, Dry, Intact Neurological: No New Focal Deficit, Cranial Nerves Intact Psy/Mental Status: Alert Sepsis Event Note - Evaluation Sepsis Screening Result: No Definite Risk - Focused Exam Vital Signs: Vital Signs Temp Pulse Resp BP Pulse Ox 04/24/20 12:00 97.5 F 23 H 132/52 L 91 L 04/24/20 11:00 17 129/49 L 91 L 04/24/20 10:00 29 H 132/48 L 89 L 04/24/20 09:00 17 147/56 H 90 L 04/24/20 08:00 97.9 F 20 138/58 L 90 L 04/24/20 07:00 18 129/58 L 93 L 04/24/20 06:00 79 22 H 133/65 92 L 04/24/20 05:00 76 22 H 129/55 L 92 L 04/24/20 04:00 97.2 F 77 22 H 115/53 L 91 L 04/24/20 03:00 87 14 128/87 93 L 04/24/20 02:00 75 14 137/82 97 - Problem List Review Problem List Initiated/Reviewed/Updated: Yes - My Orders Last 24 Hours: My Active Orders 04/23/20 14:00 Remdesivir (Eua) [Remdesivir (EUA)] 100 mg Sodium Chloride 0.9% [Normal Saline] 100 ml IV Q24H 04/25/20 07:30 GLUCOSE POC LAB TO COLLECT JPM [POC] QIDACANDBED 04/25/20 09:08 C-REACTIVE PROTEIN [CHEM] DAILY CBC WITH AUTO DIFF [HEME] DAILY COMPREHENSIVE METABOLIC PN,CMP [CHEM] DAILY D-DIMER QUANTITATIVE [COAG] DAILY FERRITIN [CHEM] DAILY 04/25/20 11:30 GLUCOSE POC LAB TO COLLECT JPM [POC] QIDACANDBED 04/25/20 16:30 GLUCOSE POC LAB TO COLLECT JPM [POC] QIDACANDBED 04/25/20 21:00 GLUCOSE POC LAB TO COLLECT JPM [POC] QIDACANDBED 04/26/20 07:30 GLUCOSE POC LAB TO COLLECT JPM [POC] QIDACANDBED 04/26/20 09:08 C-REACTIVE PROTEIN [CHEM] DAILY CBC WITH AUTO DIFF [HEME] DAILY COMPREHENSIVE METABOLIC PN,CMP [CHEM] DAILY D-DIMER QUANTITATIVE [COAG] DAILY FERRITIN [CHEM] DAILY 04/26/20 11:30 GLUCOSE POC LAB TO COLLECT JPM [POC] QIDACANDBED 04/26/20 16:30 GLUCOSE POC LAB TO COLLECT JPM [POC] QIDACANDBED 04/26/20 21:00 GLUCOSE POC LAB TO COLLECT JPM [POC] QIDACANDBED 04/27/20 09:08 C-REACTIVE PROTEIN [CHEM] DAILY CBC WITH AUTO DIFF [HEME] DAILY COMPREHENSIVE METABOLIC PN,CMP [CHEM] DAILY D-DIMER QUANTITATIVE [COAG] DAILY FERRITIN [CHEM] DAILY 04/28/20 09:08 C-REACTIVE PROTEIN [CHEM] DAILY CBC WITH AUTO DIFF [HEME] DAILY COMPREHENSIVE METABOLIC PN,CMP [CHEM] DAILY D-DIMER QUANTITATIVE [COAG] DAILY FERRITIN [CHEM] DAILY - Plan Plan:: ASSESSMENT AND PLAN BILATERAL PNEUMONIA SECONDARY TO COVID-19- Patient has deteriorated suddenly today. She has gone for intermittent BiPAP to becoming BiPAP dependent with 60% FIO2. She may well need intubation today. She is still a FULL CODE. -Decadron 6 mg IV daily, today is day - Continue Decadron -Noninvasive positive pressure ventilation -Patient now dependent on this -Supportive care, she is accepting prone ventilation - Continue convalescent plasma - Given severity of situation and imminent risk to patient of irreversible compromise, started remdesivir today despite being a suboptimal candidate from the renal perspective. - Thus far tolerating remdesivir well, creatinine stable. - Load 200 mg IV remdesivir today (Day 3) - Follow with 100 mg IV daily -Lasix 40 mg IV x 1 prn for fluid balance - Targeting to keep fluid balance around 1 L down -Place peralta catheter to facilitate I&O -Saline lock IV -Supplemental oxygen as needed -Inhalers as needed -Defer CT scan for now due to medical stability CHRONIC KIDNEY DISEASE STAGE IV-renal function has remained stable through hospitalization -Closely monitor urine output and renal function - Renal function has been stable despite remdesivir TYPE 2 DIABETES MELLITUS -Continue usual dose of long-acting insulin -4 times daily glucometers -Moderate dose sliding scale Humalog MAINTENANCE ISSUES -DVT prophylaxis; Lovenox 30 mg subcu daily -GI prophylaxis; not indicated -Peralta catheter; not indicated -Nutrition; consistent carbohydrate diet -Nicotine dependence; not required CODE STATUS-FULL CODE; I discussed this with the patient when she was seen in the emergency department and she is adamant about aggressive care including intubation if needed ADMISSION STATUS-patient will be admitted to inpatient status, expect at least a 2 night hospital stay for evaluation and management of problems as outlined above. At the time of this admission I do not reasonably expected evaluation and management of this problem will require more than a 96 hour hospital stay. DISPOSITION-anticipate discharge to home after the hospital stay. PRIMARY CARE PROVIDER- HOSPITALIST: Markos Ridley M.D. 04/24/2020
[2020-04-24] MEDS: REMDESIVIR 100 MG in Sodium Chloride 0.9% 100 ML IV SCH (13:38)
[2020-04-24] MEDS: Enoxaparin 80 MG/0.8 ML Syringe SUBCUT SCH (16:14)
[2020-04-24] MEDS: Acetaminophen 325 MG Tab PO PRN (17:41)
[2020-04-24] MEDS: Benzocaine/Cetylpyridinium/Menthol Lozenge MUCMEM PRN (17:45)
[2020-04-24] MEDS: Dexamethasone 4 MG/ML SDV IVPUSH SCH (18:10)
[2020-04-24] MEDS ORDERED: Furosemide 40 MG/4 ML VIAL IVPUSH ONE (18:16)
[2020-04-24] MEDS: Gabapentin 100 MG Cap PO SCH (20:27)
[2020-04-24] MEDS: Insulin Glargine,Human Rec. Analog 100 Units/ML 3 ML Pen SUBCUT SCH (20:27)
[2020-04-25] MEDS: Insulin Lispro 100 Unit/ML 3 ML KwikPen SUBCUT SCH ×4 (06:05→19:59)
[2020-04-25] MEDS: Allopurinol 100 MG Tab PO SCH (08:31)
[2020-04-25] MEDS: Aspirin 81 MG Tab.Chew PO SCH (08:31)
[2020-04-25] MEDS: Tamoxifen 10 MG Tab PO SCH (08:31)
[2020-04-25] MEDS: Acetaminophen 325 MG Tab PO PRN ×2 (11:12→19:55)
[2020-04-25] MEDS: Enoxaparin 80 MG/0.8 ML Syringe SUBCUT SCH (15:49)
--- NOTE | 2020-04-25 16:23 | PCM.PN ---
- General Info Date of Service: 04/25/20 Subjective Update: Ms. Barnett has shown evidence of modest improvement over the last 24 hours with decrease in shortness of breath and less oxygen requirements. She is tolerating being off the BiPAP now for longer periods of time. Appetite seems to be improving with modest improvement in strength. Functional Status: Reports: Urinating - Review of Systems General: Reports: Weakness. Denies: Fever, Chills Pulmonary: Reports: Shortness of Breath, Cough. Denies: Pleuritic Chest Pain, Sputum, Hemoptysis, Wheezing Cardiovascular: Reports: Dyspnea on Exertion. Denies: Chest Pain, Palpitations, Orthopnea, PND, Edema, Lightheadedness Gastrointestinal: Reports: No Symptoms - Patient Data Vitals - Most Recent: Last Vital Signs Temp 99.1 F 04/25/20 12:00 Pulse 84 04/25/20 15:00 Resp 16 04/25/20 15:00 BP 135/39 L 04/25/20 15:00 Pulse Ox 95 04/25/20 15:00 Weight - Most Recent: 157 lb 9.594 oz I&O - Last 24 Hours: Intake & Output 04/25/20 04/25/20 04/25/20 06:59 14:59 22:59 Intake Total 240 400 Output Total 1550 Balance -1310 400 Lab Results Last 24 Hours: Laboratory Results - last 24 hr 04/25/20 04/25/20 04/25/20 Range/Units 05:00 05:00 06:04 WBC 8.9 (4.5-11.0) K/uL RBC 3.99 (3.30-5.50) M/uL Hgb 12.4 (12.0-15.0) g/dL Hct 38.3 (36.0-48.0) % MCV 96 (80-98) fL MCH 31 (27-31) pg MCHC 32 (32-36) % Plt Count 226 (150-400) K/uL Neut % (Auto) 91 H (36-66) % Lymph % (Auto) 6 L (24-44) % [place] % (Auto) 3 (2-6) % Eos % (Auto) 0 L (2-4) % Baso % (Auto) 0 (0-1) % D-Dimer, Quantitative 1896.86 H (0.0-500.0) ng/mL Sodium 138 L (140-148) mmol/L Potassium 4.5 (3.6-5.2) mmol/L Chloride 101 (100-108) mmol/L Carbon Dioxide 29 (21-32) mmol/L Anion Gap 12.5 (5.0-14.0) mmol/L BUN 69 H (7-18) mg/dL Creatinine 1.6 H (0.6-1.0) mg/dL Est Cr Clr Drug Dosing 22.44 mL/min Estimated GFR (MDRD) 30 L (>60) Glucose 294 H (74-106) mg/dL Calcium 8.3 L (8.5-10.1) mg/dL Ferritin 301 (8-388) ng/ml Total Bilirubin 0.4 (0.2-1.0) mg/dL AST 42 H (15-37) U/L ALT 34 (12-78) U/L Alkaline Phosphatase 72 (46-116) U/L C-Reactive Protein 2.93 H (0.0-0.3) mg/dL Total Protein 6.0 L (6.4-8.2) g/dL Albumin 1.8 L (3.4-5.0) g/dL Globulin 4.2 H (2.3-3.5) g/dL Albumin/Globulin Ratio 0.4 L (1.2-2.2) Med Orders - Current: Current Medications Acetaminophen (Tylenol) 650 mg PO Q4H PRN PRN Reason: Pain (Mild 1-3)/fever Last Admin: 04/25/20 11:12 Dose: 650 mg Documented by: Albuterol (Ventolin Hfa) 2 gm INH Q4H PRN PRN Reason: Shortness of Breath Last Admin: 04/21/20 19:08 Dose: 2 puff Documented by: Allopurinol (Zyloprim) 200 mg PO DAILY [facility] Last Admin: 04/25/20 08:31 Dose: 200 mg Documented by: Aspirin (Aspirin) 81 mg PO DAILY [facility] Last Admin: 04/25/20 08:31 Dose: 81 mg Documented by: Benzocaine/Menthol (Cepacol Sore Throat) 1 lozenge MUCMEM ASDIRECTED PRN PRN Reason: SORE THROAT Last Admin: 04/24/20 17:45 Dose: 1 lozenge Documented by: Dexamethasone (Dexamethasone) 6 mg IVPUSH Q24H [facility] Last Admin: 04/24/20 18:10 Dose: 6 mg Documented by: Dextrose (Glutose 15) 15 gm PO ONETIME PRN PRN Reason: Hypoglycemia Dextrose/Water (Dextrose 50% In Water) 50 ml IV ONETIME PRN PRN Reason: Hypoglycemia Enoxaparin Sodium (Lovenox) 70 mg SUBCUT Q24H [facility] Last Admin: 04/25/20 15:49 Dose: 70 mg Documented by: Gabapentin (Neurontin) 100 mg PO BEDTIME [facility] Last Admin: 04/24/20 20:27 Dose: 100 mg Documented by: Insulin Glargine (Lantus Solostar) 24 units SUBCUT BEDTIME [facility] Last Admin: 04/24/20 20:27 Dose: 24 units Documented by: Insulin Human Lispro (Humalog) 0 unit SUBCUT QIDACANDBED [facility]; Protocol Last Admin: 04/25/20 11:05 Dose: 12 units Documented by: Lorazepam (Ativan) 0.5 mg IVPUSH Q2H PRN PRN Reason: Anxiety Last Admin: 04/18/20 07:55 Dose: 0.5 mg Documented by: Melatonin (Melatonin) 9 mg PO BEDTIME PRN PRN Reason: Insomnia Last Admin: 04/23/20 20:44 Dose: 9 mg Documented by: Ondansetron HCl (Zofran) 4 mg IV Q4H PRN PRN Reason: Nausea/Vomiting Oxycodone HCl (Oxycodone) 5 mg PO Q4H PRN PRN Reason: Pain Last Admin: 04/22/20 00:48 Dose: 5 mg Documented by: Polyethylene Glycol (Miralax) 17 gm PO DAILY PRN PRN Reason: Constipation Last Admin: 04/21/20 08:06 Dose: 17 gm Documented by: Sodium Chloride (Saline Flush) 10 ml FLUSH ASDIRECTED PRN PRN Reason: Keep Vein Open Last Admin: 04/15/20 09:45 Dose: 10 ml Documented by: Tamoxifen Citrate (Nolvadex) 20 mg PO DAILY [facility] Last Admin: 04/25/20 08:31 Dose: 20 mg Documented by: Discontinued Medications Acetaminophen (Tylenol) 650 mg PO ONCALL ONE Stop: 04/13/20 16:31 Last Admin: 04/13/20 17:02 Dose: 650 mg Documented by: Acetaminophen (Tylenol) 650 mg PO ONCALL ONE Stop: 04/14/20 14:31 Last Admin: 04/14/20 15:56 Dose: 650 mg Documented by: Acetaminophen (Tylenol) 650 mg PO ONCALL ONE Stop: 04/15/20 10:31 Last Admin: 04/15/20 09:44 Dose: 650 mg Documented by: Acetaminophen (Tylenol) 650 mg PO ONCALL ONE Stop: 04/16/20 09:01 Last Admin: 04/16/20 09:28 Dose: 650 mg Documented by: Albuterol (Proventil Neb Soln) 2.5 mg NEB Q4H PRN PRN Reason: Shortness Of Breath/wheezing Last Admin: 04/15/20 20:23 Dose: 2.5 mg Documented by: Benzocaine/Menthol (Cepacol Sore Throat) 1 lozenge MUCMEM ASDIRECTED PRN PRN Reason: SORE THROAT Benzocaine/Menthol (Cepacol Sore Throat) Confirm Administered Dose 1 lozenge .ROUTE .STK-MED ONE Stop: 04/12/20 21:32 Last Admin: 04/12/20 22:57 Dose: Not Given Documented by: Bisacodyl (Dulcolax) 5 mg PO DAILY [facility] Last Admin: 04/21/20 11:06 Dose: 5 mg Documented by: Dexamethasone (Dexamethasone) 6 mg IVPUSH ONETIME ONE Stop: 04/11/20 17:50 Last Admin: 04/11/20 18:08 Dose: 6 mg Documented by: Dexamethasone (Dexamethasone) Confirm Administered Dose 4 mg .ROUTE .STK-MED ONE Stop: 04/11/20 18:01 Last Admin: 04/11/20 18:11 Dose: Not Given Documented by: Diphenhydramine HCl (Benadryl) 25 mg IVPUSH ONCALL ONE Stop: 04/13/20 16:31 Last Admin: 04/13/20 17:02 Dose: 25 mg Documented by: Diphenhydramine HCl (Benadryl) 25 mg IVPUSH ONCALL ONE Stop: 04/14/20 14:31 Last Admin: 04/14/20 15:56 Dose: 25 mg Documented by: Diphenhydramine HCl (Benadryl) 25 mg PO ONCALL ONE Stop: 04/15/20 10:31 Last Admin: 04/15/20 09:46 Dose: 25 mg Documented by: Diphenhydramine HCl (Benadryl) 25 mg PO ONCALL ONE Stop: 04/16/20 09:01 Last Admin: 04/16/20 09:28 Dose: 25 mg Documented by: Enoxaparin Sodium (Lovenox) 30 mg SUBCUT DAILY [facility] Last Admin: 04/11/20 21:39 Dose: 30 mg Documented by: Enoxaparin Sodium (Lovenox) 30 mg SUBCUT BEDTIME [facility] Last Admin: 04/22/20 20:11 Dose: 30 mg Documented by: Furosemide (Lasix) 40 mg IVPUSH NOW ONE Stop: 04/16/20 12:01 Last Admin: 04/16/20 12:26 Dose: 40 mg Documented by: Furosemide (Lasix) 40 mg IV ONETIME ONE Stop: 04/22/20 12:01 Last Admin: 04/22/20 12:01 Dose: 40 mg Documented by: Furosemide (Lasix) 40 mg IVPUSH ONETIME ONE Stop: 04/22/20 21:16 Last Admin: 04/22/20 21:46 Dose: 40 mg Documented by: Furosemide (Lasix) 40 mg IVPUSH ONETIME ONE Stop: 04/24/20 18:17 Last Admin: 04/24/20 18:39 Dose: 40 mg Documented by: Sodium Chloride (Normal Saline) 1,000 mls @ 1,000 mls/hr IV ASDIRECTED [facility] Last Admin: 04/11/20 17:14 Dose: 1,000 mls/hr Documented by: Sodium Chloride (Normal Saline) 1,000 mls @ 50 mls/hr IV ASDIRECTED [facility] Last Admin: 04/11/20 22:32 Dose: 50 mls/hr Documented by: Sodium Chloride (Normal Saline) 250 mls @ 20 mls/hr IV ASDIRECTED [facility] Last Admin: 04/13/20 17:55 Dose: 20 mls/hr Documented by: Remdesivir 200 mg/ Sodium (Chloride) 250 mls @ 250 mls/hr IV ONETIME ONE Stop: 04/22/20 14:59 Last Admin: 04/22/20 14:23 Dose: 250 mls/hr Documented by: Remdesivir 100 mg/ Sodium (Chloride) 100 mls @ 100 mls/hr IV Q24H [facility] Stop: 04/26/20 14:59 Last Admin: 04/24/20 13:38 Dose: 100 mls/hr Documented by: Insulin Glargine (Lantus Solostar) 26 units SUBCUT BEDTIME [facility] Last Admin: 04/11/20 23:35 Dose: Not Given Documented by: Insulin Glargine (Lantus Solostar) 24 units SUBCUT BEDTIME [facility] Last Admin: 04/11/20 22:33 Dose: 24 units Documented by: Insulin Human Lispro (Humalog) 0 unit SUBCUT QIDACANDBED [facility]; Protocol Last Admin: 04/20/20 12:03 Dose: 6 units Documented by: Magnesium Hydroxide (Milk Of Magnesia) 30 ml PO DAILY [facility] Last Admin: 04/21/20 11:06 Dose: 30 ml Documented by: Senna/Docusate Sodium (Senna Plus) 1 tab PO BID [facility] Last Admin: 04/21/20 11:06 Dose: 1 tab Documented by: Sodium Polystyrene Sulfonate (Kayexalate) 15 gm PO ONETIME ONE Stop: 04/22/20 10:01 Last Admin: 04/22/20 11:34 Dose: 15 gm Documented by: - Exam Quality Assessment: Supplemental Oxygen, DVT Prophylaxis General: Alert, Oriented, Cooperative, Moderate Distress Lungs: Clear to Auscultation, Normal Respiratory Effort, Decreased Breath Sounds Cardiovascular: Regular Rate, Regular Rhythm, No Murmurs GI/Abdominal Exam: Soft, Non-Tender, No Organomegaly, No Distention Extremities: Non-Tender, No Pedal Edema Sepsis Event Note - Evaluation Sepsis Screening Result: No Definite Risk - Focused Exam Vital Signs: Vital Signs Temp Pulse Resp BP Pulse Ox 04/25/20 15:00 84 16 135/39 L 95 04/25/20 14:00 83 15 115/57 L 94 L 04/25/20 13:00 78 23 H 137/36 L 92 L 04/25/20 12:00 99.1 F 81 20 129/43 L 92 L 04/25/20 11:00 84 29 H 129/60 93 L 04/25/20 10:00 84 24 H 131/58 L 94 L 04/25/20 09:00 98.9 F 90 16 136/57 L 89 L 04/25/20 08:00 98.0 F 89 22 H 131/52 L 94 L 04/25/20 07:00 82 18 117/61 91 L 04/25/20 06:00 79 20 120/57 L 90 L 04/25/20 05:00 66 15 115/55 L 96 - Problem List Review Problem List Initiated/Reviewed/Updated: Yes - Plan Plan:: ASSESSMENT AND PLAN BILATERAL PNEUMONIA SECONDARY TO [id number] improvement over the last 24 hours with less shortness of breath and less need for respiratory support including oxygen -She has completed a course of Decadron, convalescent plasma -Noninvasive positive pressure ventilation -Supportive care, she is accepting prone ventilation -Monitor fluid status -Discontinue Figueroa catheter -Saline lock IV -Supplemental oxygen as needed -Inhalers as needed ACUTE DVT -Enoxaparin 70 mg subcu daily, dose adjusted based on renal function CHRONIC KIDNEY DISEASE STAGE IV-renal function has remained stable through hospitalization -Closely monitor urine output and renal function TYPE 2 DIABETES MELLITUS -Continue usual dose of long-acting insulin -4 times daily glucometers -Moderate dose sliding scale Humalog MAINTENANCE ISSUES -DVT prophylaxis; Lovenox 30 mg subcu daily -GI prophylaxis; not indicated -Figueroa catheter; not indicated -Nutrition; consistent carbohydrate diet -Nicotine dependence; not required CODE STATUS-FULL CODE; I discussed this with the patient when she was seen in the emergency department and she is adamant about aggressive care including intubation if needed ADMISSION STATUS-patient will be admitted to inpatient status, expect at least a 2 night hospital stay for evaluation and management of problems as outlined above. At the time of this admission I do not reasonably expected evaluation and management of this problem will require more than a 96 hour hospital stay. DISPOSITION-anticipate discharge to home after the hospital stay. PRIMARY CARE PROVIDER-
[2020-04-25] MEDS: Dexamethasone 4 MG/ML SDV IVPUSH SCH (19:41)
[2020-04-25] MEDS: Insulin Glargine,Human Rec. Analog 100 Units/ML 3 ML Pen SUBCUT SCH (20:01)
[2020-04-25] MEDS: Gabapentin 100 MG Cap PO SCH (20:06)
[2020-04-26] MEDS: Insulin Lispro 100 Unit/ML 3 ML KwikPen SUBCUT SCH ×4 (08:20→20:34)
[2020-04-26] MEDS: Tamoxifen 10 MG Tab PO SCH (08:37)
[2020-04-26] MEDS: Allopurinol 100 MG Tab PO SCH (08:37)
[2020-04-26] MEDS: Aspirin 81 MG Tab.Chew PO SCH (08:37)
[2020-04-26] MEDS: Acetaminophen 325 MG Tab PO PRN ×2 (12:36→20:26)
--- NOTE | 2020-04-26 13:23 | PCM.PN ---
- General Info Date of Service: 04/26/20 Subjective Update: Ms. Barnett and further modest improvement over the last 24 hours with less shortness of breath. She continues to use the noninvasive positive pressure ventilation on an intermittent basis. She does tolerate oxygen via high flow nasal cannula when at rest. Vital signs have remained stable and she has been afebrile. She feels overall strength and appetite are slowly improving. Functional Status: Reports: Tolerating Diet - Review of Systems General: Reports: Weakness, Fatigue, Malaise. Denies: Fever, Chills Pulmonary: Reports: Shortness of Breath, Cough. Denies: Pleuritic Chest Pain, Sputum, Hemoptysis, Wheezing Cardiovascular: Reports: Dyspnea on Exertion. Denies: Chest Pain, Palpitations, Orthopnea, PND, Edema, Lightheadedness Gastrointestinal: Reports: No Symptoms Genitourinary: Reports: No Symptoms - Patient Data Vitals - Most Recent: Last Vital Signs Temp 98.3 F 04/26/20 11:45 Pulse 91 04/26/20 11:45 Resp 18 04/26/20 11:45 BP 133/49 L 04/26/20 11:45 Pulse Ox 91 L 04/26/20 12:33 Weight - Most Recent: 157 lb 9.594 oz I&O - Last 24 Hours: Intake & Output 04/25/20 04/26/20 04/26/20 22:59 06:59 14:59 Intake Total 350 Output Total 550 450 Balance -550 -450 350 Lab Results Last 24 Hours: Laboratory Results - last 24 hr 04/26/20 04/26/20 04/26/20 Range/Units 05:39 05:39 05:39 WBC 9.7 (4.5-11.0) K/uL RBC 3.98 (3.30-5.50) M/uL Hgb 12.6 (12.0-15.0) g/dL Hct 38.5 (36.0-48.0) % MCV 97 (80-98) fL MCH 32 H (27-31) pg MCHC 33 (32-36) % Plt Count 221 (150-400) K/uL Neut % (Auto) 93 H (36-66) % Lymph % (Auto) 5 L (24-44) % [place] % (Auto) 2 (2-6) % Eos % (Auto) 0 L (2-4) % Baso % (Auto) 0 (0-1) % D-Dimer, Quantitative 1991.33 H (0.0-500.0) ng/mL Sodium 139 L (140-148) mmol/L Potassium 5.3 H (3.6-5.2) mmol/L Chloride 103 (100-108) mmol/L Carbon Dioxide 31 (21-32) mmol/L Anion Gap 10.3 (5.0-14.0) mmol/L BUN 68 H (7-18) mg/dL Creatinine 1.5 H (0.6-1.0) mg/dL Est Cr Clr Drug Dosing 23.93 mL/min Estimated GFR (MDRD) 33 L (>60) Glucose 275 H (74-106) mg/dL Calcium 8.7 (8.5-10.1) mg/dL Ferritin 350 (8-388) ng/ml Total Bilirubin 0.6 (0.2-1.0) mg/dL AST 45 H (15-37) U/L ALT 29 (12-78) U/L Alkaline Phosphatase 64 (46-116) U/L C-Reactive Protein 2.28 H (0.0-0.3) mg/dL Total Protein 6.1 L (6.4-8.2) g/dL Albumin 1.7 L (3.4-5.0) g/dL Globulin 4.4 H (2.3-3.5) g/dL Albumin/Globulin Ratio 0.4 L (1.2-2.2) Med Orders - Current: Current Medications Acetaminophen (Tylenol) 650 mg PO Q4H PRN PRN Reason: Pain (Mild 1-3)/fever Last Admin: 04/26/20 12:36 Dose: 650 mg Documented by: Albuterol (Ventolin Hfa) 2 gm INH Q4H PRN PRN Reason: Shortness of Breath Last Admin: 04/21/20 19:08 Dose: 2 puff Documented by: Allopurinol (Zyloprim) 200 mg PO DAILY [facility] Last Admin: 04/26/20 08:37 Dose: 200 mg Documented by: Aspirin (Aspirin) 81 mg PO DAILY [facility] Last Admin: 04/26/20 08:37 Dose: 81 mg Documented by: Benzocaine/Menthol (Cepacol Sore Throat) 1 lozenge MUCMEM ASDIRECTED PRN PRN Reason: SORE THROAT Last Admin: 04/24/20 17:45 Dose: 1 lozenge Documented by: Dextrose (Glutose 15) 15 gm PO ONETIME PRN PRN Reason: Hypoglycemia Dextrose/Water (Dextrose 50% In Water) 50 ml IV ONETIME PRN PRN Reason: Hypoglycemia Enoxaparin Sodium (Lovenox) 70 mg SUBCUT Q24H [facility] Last Admin: 04/25/20 15:49 Dose: 70 mg Documented by: Gabapentin (Neurontin) 100 mg PO BEDTIME [facility] Last Admin: 04/25/20 20:06 Dose: 100 mg Documented by: Insulin Glargine (Lantus Solostar) 24 units SUBCUT BEDTIME [facility] Last Admin: 04/25/20 20:01 Dose: 24 units Documented by: Insulin Human Lispro (Humalog) 0 unit SUBCUT QIDACANDBED [facility]; Protocol Last Admin: 04/26/20 11:36 Dose: 6 units Documented by: Lorazepam (Ativan) 0.5 mg IVPUSH Q2H PRN PRN Reason: Anxiety Last Admin: 04/18/20 07:55 Dose: 0.5 mg Documented by: Melatonin (Melatonin) 9 mg PO BEDTIME PRN PRN Reason: Insomnia Last Admin: 04/23/20 20:44 Dose: 9 mg Documented by: Ondansetron HCl (Zofran) 4 mg IV Q4H PRN PRN Reason: Nausea/Vomiting Oxycodone HCl (Oxycodone) 5 mg PO Q4H PRN PRN Reason: Pain Last Admin: 04/22/20 00:48 Dose: 5 mg Documented by: Polyethylene Glycol (Miralax) 17 gm PO DAILY PRN PRN Reason: Constipation Last Admin: 04/21/20 08:06 Dose: 17 gm Documented by: Sodium Chloride (Saline Flush) 10 ml FLUSH ASDIRECTED PRN PRN Reason: Keep Vein Open Last Admin: 04/15/20 09:45 Dose: 10 ml Documented by: Tamoxifen Citrate (Nolvadex) 20 mg PO DAILY [facility] Last Admin: 04/26/20 08:37 Dose: 20 mg Documented by: Discontinued Medications Acetaminophen (Tylenol) 650 mg PO ONCALL ONE Stop: 04/13/20 16:31 Last Admin: 04/13/20 17:02 Dose: 650 mg Documented by: Acetaminophen (Tylenol) 650 mg PO ONCALL ONE Stop: 04/14/20 14:31 Last Admin: 04/14/20 15:56 Dose: 650 mg Documented by: Acetaminophen (Tylenol) 650 mg PO ONCALL ONE Stop: 04/15/20 10:31 Last Admin: 04/15/20 09:44 Dose: 650 mg Documented by: Acetaminophen (Tylenol) 650 mg PO ONCALL ONE Stop: 04/16/20 09:01 Last Admin: 04/16/20 09:28 Dose: 650 mg Documented by: Albuterol (Proventil Neb Soln) 2.5 mg NEB Q4H PRN PRN Reason: Shortness Of Breath/wheezing Last Admin: 04/15/20 20:23 Dose: 2.5 mg Documented by: Benzocaine/Menthol (Cepacol Sore Throat) 1 lozenge MUCMEM ASDIRECTED PRN PRN Reason: SORE THROAT Benzocaine/Menthol (Cepacol Sore Throat) Confirm Administered Dose 1 lozenge .ROUTE .STK-MED ONE Stop: 04/12/20 21:32 Last Admin: 04/12/20 22:57 Dose: Not Given Documented by: Bisacodyl (Dulcolax) 5 mg PO DAILY [facility] Last Admin: 04/21/20 11:06 Dose: 5 mg Documented by: Dexamethasone (Dexamethasone) 6 mg IVPUSH ONETIME ONE Stop: 04/11/20 17:50 Last Admin: 04/11/20 18:08 Dose: 6 mg Documented by: Dexamethasone (Dexamethasone) Confirm Administered Dose 4 mg .ROUTE .STK-MED ONE Stop: 04/11/20 18:01 Last Admin: 04/11/20 18:11 Dose: Not Given Documented by: Dexamethasone (Decadron) 6 mg IVPUSH Q24H [facility] Last Admin: 04/25/20 19:41 Dose: 6 mg Documented by: Diphenhydramine HCl (Benadryl) 25 mg IVPUSH ONCALL ONE Stop: 04/13/20 16:31 Last Admin: 04/13/20 17:02 Dose: 25 mg Documented by: Diphenhydramine HCl (Benadryl) 25 mg IVPUSH ONCALL ONE Stop: 04/14/20 14:31 Last Admin: 04/14/20 15:56 Dose: 25 mg Documented by: Diphenhydramine HCl (Benadryl) 25 mg PO ONCALL ONE Stop: 04/15/20 10:31 Last Admin: 04/15/20 09:46 Dose: 25 mg Documented by: Diphenhydramine HCl (Benadryl) 25 mg PO ONCALL ONE Stop: 04/16/20 09:01 Last Admin: 04/16/20 09:28 Dose: 25 mg Documented by: Enoxaparin Sodium (Lovenox) 30 mg SUBCUT DAILY [facility] Last Admin: 04/11/20 21:39 Dose: 30 mg Documented by: Enoxaparin Sodium (Lovenox) 30 mg SUBCUT BEDTIME [facility] Last Admin: 04/22/20 20:11 Dose: 30 mg Documented by: Furosemide (Lasix) 40 mg IVPUSH NOW ONE Stop: 04/16/20 12:01 Last Admin: 04/16/20 12:26 Dose: 40 mg Documented by: Furosemide (Lasix) 40 mg IV ONETIME ONE Stop: 04/22/20 12:01 Last Admin: 04/22/20 12:01 Dose: 40 mg Documented by: Furosemide (Lasix) 40 mg IVPUSH ONETIME ONE Stop: 04/22/20 21:16 Last Admin: 04/22/20 21:46 Dose: 40 mg Documented by: Furosemide (Lasix) 40 mg IVPUSH ONETIME ONE Stop: 04/24/20 18:17 Last Admin: 04/24/20 18:39 Dose: 40 mg Documented by: Sodium Chloride (Normal Saline) 1,000 mls @ 1,000 mls/hr IV ASDIRECTED [facility] Last Admin: 04/11/20 17:14 Dose: 1,000 mls/hr Documented by: Sodium Chloride (Normal Saline) 1,000 mls @ 50 mls/hr IV ASDIRECTED [facility] Last Admin: 04/11/20 22:32 Dose: 50 mls/hr Documented by: Sodium Chloride (Normal Saline) 250 mls @ 20 mls/hr IV ASDIRECTED [facility] Last Admin: 04/13/20 17:55 Dose: 20 mls/hr Documented by: Remdesivir 200 mg/ Sodium (Chloride) 250 mls @ 250 mls/hr IV ONETIME ONE Stop: 04/22/20 14:59 Last Admin: 04/22/20 14:23 Dose: 250 mls/hr Documented by: Remdesivir 100 mg/ Sodium (Chloride) 100 mls @ 100 mls/hr IV Q24H [facility] Stop: 04/26/20 14:59 Last Admin: 04/24/20 13:38 Dose: 100 mls/hr Documented by: Insulin Glargine (Lantus Solostar) 26 units SUBCUT BEDTIME [facility] Last Admin: 04/11/20 23:35 Dose: Not Given Documented by: Insulin Glargine (Lantus Solostar) 24 units SUBCUT BEDTIME [facility] Last Admin: 04/11/20 22:33 Dose: 24 units Documented by: Insulin Human Lispro (Humalog) 0 unit SUBCUT QIDACANDBED [facility]; Protocol Last Admin: 04/20/20 12:03 Dose: 6 units Documented by: Magnesium Hydroxide (Milk Of Magnesia) 30 ml PO DAILY [facility] Last Admin: 04/21/20 11:06 Dose: 30 ml Documented by: Senna/Docusate Sodium (Senna Plus) 1 tab PO BID [facility] Last Admin: 04/21/20 11:06 Dose: 1 tab Documented by: Sodium Polystyrene Sulfonate (Kayexalate) 15 gm PO ONETIME ONE Stop: 04/22/20 10:01 Last Admin: 04/22/20 11:34 Dose: 15 gm Documented by: - Exam Quality Assessment: Supplemental Oxygen, DVT Prophylaxis General: Alert, Oriented, Cooperative, Moderate Distress Lungs: Decreased Breath Sounds, Rhonchi. No: Crackles, Rales, Wheezing Cardiovascular: Regular Rate, Regular Rhythm, No Murmurs GI/Abdominal Exam: Soft, Non-Tender, No Organomegaly Extremities: Non-Tender, No Pedal Edema Sepsis Event Note - Evaluation Sepsis Screening Result: No Definite Risk - Focused Exam Vital Signs: Vital Signs Temp Pulse Resp BP Pulse Ox 04/26/20 12:33 91 L 04/26/20 11:45 98.3 F 91 18 133/49 L 93 L 04/26/20 11:00 92 20 137/55 L 93 L 04/26/20 10:00 94 20 125/62 04/26/20 09:00 89 26 H 150/53 H 92 L 04/26/20 08:00 97.6 F 88 19 141/52 H 91 L 04/26/20 07:00 84 18 126/46 L 92 L 04/26/20 06:00 97.3 F 83 17 146/51 H 92 L 04/26/20 05:00 81 16 125/43 L 95 04/26/20 04:00 82 20 129/51 L 88 L 04/26/20 03:00 81 19 135/48 L 91 L 04/26/20 02:00 74 17 133/47 L 96 - Problem List Review Problem List Initiated/Reviewed/Updated: Yes - Plan Plan:: ASSESSMENT AND PLAN BILATERAL PNEUMONIA SECONDARY TO [id number] improvement over the last 24 hours with less shortness of breath and less need for respiratory support including oxygen -She has completed a course of Decadron, convalescent plasma -Noninvasive positive pressure ventilation -Supportive care, she is accepting prone ventilation -Monitor fluid status -Discontinue Figueroa catheter -Saline lock IV -Supplemental oxygen as needed -Inhalers as needed ACUTE DVT -Enoxaparin 70 mg subcu daily, dose adjusted based on renal function CHRONIC KIDNEY DISEASE STAGE IV-renal function has remained stable through hospitalization -Closely monitor urine output and renal function TYPE 2 DIABETES MELLITUS -Continue usual dose of long-acting insulin -4 times daily glucometers -Moderate dose sliding scale Humalog MAINTENANCE ISSUES -DVT prophylaxis; Lovenox 30 mg subcu daily -GI prophylaxis; not indicated -Figueroa catheter; not indicated -Nutrition; consistent carbohydrate diet -Nicotine dependence; not required CODE STATUS-FULL CODE; I discussed this with the patient when she was seen in the emergency department and she is adamant about aggressive care including intubation if needed ADMISSION STATUS-patient will be admitted to inpatient status, expect at least a 2 night hospital stay for evaluation and management of problems as outlined above. At the time of this admission I do not reasonably expected evaluation and management of this problem will require more than a 96 hour hospital stay. DISPOSITION-anticipate discharge to home after the hospital stay. PRIMARY CARE PROVIDER-
[2020-04-26] MEDS: Enoxaparin 80 MG/0.8 ML Syringe SUBCUT SCH (15:02)
[2020-04-26] MEDS: oxyCODONE 5 MG Tab PO PRN (20:25)
[2020-04-26] MEDS: Gabapentin 100 MG Cap PO SCH (20:25)
[2020-04-26] MEDS: Melatonin 3 MG Tab PO PRN (20:26)
[2020-04-26] MEDS: Insulin Glargine,Human Rec. Analog 100 Units/ML 3 ML Pen SUBCUT SCH (20:35)
[2020-04-27] MEDS: Insulin Lispro 100 Unit/ML 3 ML KwikPen SUBCUT SCH ×4 (07:49→20:52)
[2020-04-27] MEDS: Tamoxifen 10 MG Tab PO SCH (08:00)
[2020-04-27] MEDS: Aspirin 81 MG Tab.Chew PO SCH (08:00)
[2020-04-27] MEDS: Allopurinol 100 MG Tab PO SCH (08:00)
--- NOTE | 2020-04-27 10:33 | PCM.PN ---
- General Info Date of Service: 04/27/20 Subjective Update: Ms. Barnett has continued to show slow improvement, requiring less supplemental oxygen. Energy level and appetite seem to be slowly improving. She is currently not requiring use of noninvasive positive pressure ventilation. Functional Status: Reports: Tolerating Diet, Urinating - Review of Systems General: Reports: Weakness, Fatigue. Denies: Fever, Chills Pulmonary: Reports: Shortness of Breath, Cough. Denies: Pleuritic Chest Pain, Sputum, Hemoptysis, Wheezing Cardiovascular: Reports: Dyspnea on Exertion. Denies: Chest Pain, Palpitations, Orthopnea, PND, Edema, Lightheadedness Gastrointestinal: Reports: No Symptoms Genitourinary: Reports: No Symptoms - Patient Data Vitals - Most Recent: Last Vital Signs Temp 96.5 F L 04/27/20 08:00 Pulse 81 04/27/20 10:00 Resp 16 04/27/20 10:00 BP 129/48 L 04/27/20 10:00 Pulse Ox 96 04/27/20 10:00 Weight - Most Recent: 157 lb 9.594 oz I&O - Last 24 Hours: Intake & Output 04/26/20 04/27/20 04/27/20 22:59 06:59 14:59 Intake Total 60 Balance 60 Lab Results Last 24 Hours: Laboratory Results - last 24 hr 04/27/20 04/27/20 04/27/20 Range/Units 05:00 05:00 05:00 WBC 12.2 H (4.5-11.0) K/uL RBC 4.16 (3.30-5.50) M/uL Hgb 12.7 (12.0-15.0) g/dL Hct 39.9 (36.0-48.0) % MCV 96 (80-98) fL MCH 31 (27-31) pg MCHC 32 (32-36) % Plt Count 216 (150-400) K/uL Neut % (Auto) 83 H (36-66) % Lymph % (Auto) 11 L (24-44) % [place] % (Auto) 6 (2-6) % Eos % (Auto) 0 L (2-4) % Baso % (Auto) 0 (0-1) % D-Dimer, Quantitative 1118.33 H (0.0-500.0) ng/mL Sodium 138 L (140-148) mmol/L Potassium 4.2 (3.6-5.2) mmol/L Chloride 101 (100-108) mmol/L Carbon Dioxide 30 (21-32) mmol/L Anion Gap 11.2 (5.0-14.0) mmol/L BUN 70 H (7-18) mg/dL Creatinine 1.5 H (0.6-1.0) mg/dL Est Cr Clr Drug Dosing 23.93 mL/min Estimated GFR (MDRD) 33 L (>60) Glucose 176 H (74-106) mg/dL Calcium 8.6 (8.5-10.1) mg/dL Ferritin 335 (8-388) ng/ml Total Bilirubin 0.6 (0.2-1.0) mg/dL AST 31 (15-37) U/L ALT 30 (12-78) U/L Alkaline Phosphatase 71 (46-116) U/L C-Reactive Protein 2.30 H (0.0-0.3) mg/dL Total Protein 6.2 L (6.4-8.2) g/dL Albumin 1.9 L (3.4-5.0) g/dL Globulin 4.3 H (2.3-3.5) g/dL Albumin/Globulin Ratio 0.4 L (1.2-2.2) Med Orders - Current: Current Medications Acetaminophen (Tylenol) 650 mg PO Q4H PRN PRN Reason: Pain (Mild 1-3)/fever Last Admin: 04/26/20 20:26 Dose: 650 mg Documented by: Albuterol (Ventolin Hfa) 2 gm INH Q4H PRN PRN Reason: Shortness of Breath Last Admin: 04/21/20 19:08 Dose: 2 puff Documented by: Allopurinol (Zyloprim) 200 mg PO DAILY [facility] Last Admin: 04/27/20 08:00 Dose: 200 mg Documented by: Aspirin (Aspirin) 81 mg PO DAILY [facility] Last Admin: 04/27/20 08:00 Dose: 81 mg Documented by: Benzocaine/Menthol (Cepacol Sore Throat) 1 lozenge MUCMEM ASDIRECTED PRN PRN Reason: SORE THROAT Last Admin: 04/24/20 17:45 Dose: 1 lozenge Documented by: Dextrose (Glutose 15) 15 gm PO ONETIME PRN PRN Reason: Hypoglycemia Dextrose/Water (Dextrose 50% In Water) 50 ml IV ONETIME PRN PRN Reason: Hypoglycemia Enoxaparin Sodium (Lovenox) 70 mg SUBCUT Q24H [facility] Last Admin: 04/26/20 15:02 Dose: 70 mg Documented by: Gabapentin (Neurontin) 100 mg PO BEDTIME [facility] Last Admin: 04/26/20 20:25 Dose: 100 mg Documented by: Insulin Glargine (Lantus Solostar) 24 units SUBCUT BEDTIME [facility] Last Admin: 04/26/20 20:35 Dose: 24 units Documented by: Insulin Human Lispro (Humalog) 0 unit SUBCUT QIDACANDBED [facility]; Protocol Last Admin: 04/27/20 07:49 Dose: 3 units Documented by: Lorazepam (Ativan) 0.5 mg IVPUSH Q2H PRN PRN Reason: Anxiety Last Admin: 04/18/20 07:55 Dose: 0.5 mg Documented by: Melatonin (Melatonin) 9 mg PO BEDTIME PRN PRN Reason: Insomnia Last Admin: 04/26/20 20:26 Dose: 9 mg Documented by: Ondansetron HCl (Zofran) 4 mg IV Q4H PRN PRN Reason: Nausea/Vomiting Oxycodone HCl (Oxycodone) 5 mg PO Q4H PRN PRN Reason: Pain Last Admin: 04/26/20 20:25 Dose: 5 mg Documented by: Polyethylene Glycol (Miralax) 17 gm PO DAILY PRN PRN Reason: Constipation Last Admin: 04/21/20 08:06 Dose: 17 gm Documented by: Sodium Chloride (Saline Flush) 10 ml FLUSH ASDIRECTED PRN PRN Reason: Keep Vein Open Last Admin: 04/15/20 09:45 Dose: 10 ml Documented by: Tamoxifen Citrate (Nolvadex) 20 mg PO DAILY [facility] Last Admin: 04/27/20 08:00 Dose: 20 mg Documented by: Discontinued Medications Acetaminophen (Tylenol) 650 mg PO ONCALL ONE Stop: 04/13/20 16:31 Last Admin: 04/13/20 17:02 Dose: 650 mg Documented by: Acetaminophen (Tylenol) 650 mg PO ONCALL ONE Stop: 04/14/20 14:31 Last Admin: 04/14/20 15:56 Dose: 650 mg Documented by: Acetaminophen (Tylenol) 650 mg PO ONCALL ONE Stop: 04/15/20 10:31 Last Admin: 04/15/20 09:44 Dose: 650 mg Documented by: Acetaminophen (Tylenol) 650 mg PO ONCALL ONE Stop: 04/16/20 09:01 Last Admin: 04/16/20 09:28 Dose: 650 mg Documented by: Albuterol (Proventil Neb Soln) 2.5 mg NEB Q4H PRN PRN Reason: Shortness Of Breath/wheezing Last Admin: 04/15/20 20:23 Dose: 2.5 mg Documented by: Benzocaine/Menthol (Cepacol Sore Throat) 1 lozenge MUCMEM ASDIRECTED PRN PRN Reason: SORE THROAT Benzocaine/Menthol (Cepacol Sore Throat) Confirm Administered Dose 1 lozenge .ROUTE .STK-MED ONE Stop: 04/12/20 21:32 Last Admin: 04/12/20 22:57 Dose: Not Given Documented by: Bisacodyl (Dulcolax) 5 mg PO DAILY [facility] Last Admin: 04/21/20 11:06 Dose: 5 mg Documented by: Dexamethasone (Dexamethasone) 6 mg IVPUSH ONETIME ONE Stop: 04/11/20 17:50 Last Admin: 04/11/20 18:08 Dose: 6 mg Documented by: Dexamethasone (Dexamethasone) Confirm Administered Dose 4 mg .ROUTE .STK-MED ONE Stop: 04/11/20 18:01 Last Admin: 04/11/20 18:11 Dose: Not Given Documented by: Dexamethasone (Decadron) 6 mg IVPUSH Q24H [facility] Last Admin: 04/25/20 19:41 Dose: 6 mg Documented by: Diphenhydramine HCl (Benadryl) 25 mg IVPUSH ONCALL ONE Stop: 04/13/20 16:31 Last Admin: 04/13/20 17:02 Dose: 25 mg Documented by: Diphenhydramine HCl (Benadryl) 25 mg IVPUSH ONCALL ONE Stop: 04/14/20 14:31 Last Admin: 04/14/20 15:56 Dose: 25 mg Documented by: Diphenhydramine HCl (Benadryl) 25 mg PO ONCALL ONE Stop: 04/15/20 10:31 Last Admin: 04/15/20 09:46 Dose: 25 mg Documented by: Diphenhydramine HCl (Benadryl) 25 mg PO ONCALL ONE Stop: 04/16/20 09:01 Last Admin: 04/16/20 09:28 Dose: 25 mg Documented by: Enoxaparin Sodium (Lovenox) 30 mg SUBCUT DAILY [facility] Last Admin: 04/11/20 21:39 Dose: 30 mg Documented by: Enoxaparin Sodium (Lovenox) 30 mg SUBCUT BEDTIME [facility] Last Admin: 04/22/20 20:11 Dose: 30 mg Documented by: Furosemide (Lasix) 40 mg IVPUSH NOW ONE Stop: 04/16/20 12:01 Last Admin: 04/16/20 12:26 Dose: 40 mg Documented by: Furosemide (Lasix) 40 mg IV ONETIME ONE Stop: 04/22/20 12:01 Last Admin: 04/22/20 12:01 Dose: 40 mg Documented by: Furosemide (Lasix) 40 mg IVPUSH ONETIME ONE Stop: 04/22/20 21:16 Last Admin: 04/22/20 21:46 Dose: 40 mg Documented by: Furosemide (Lasix) 40 mg IVPUSH ONETIME ONE Stop: 04/24/20 18:17 Last Admin: 04/24/20 18:39 Dose: 40 mg Documented by: Sodium Chloride (Normal Saline) 1,000 mls @ 1,000 mls/hr IV ASDIRECTED [facility] Last Admin: 04/11/20 17:14 Dose: 1,000 mls/hr Documented by: Sodium Chloride (Normal Saline) 1,000 mls @ 50 mls/hr IV ASDIRECTED [facility] Last Admin: 04/11/20 22:32 Dose: 50 mls/hr Documented by: Sodium Chloride (Normal Saline) 250 mls @ 20 mls/hr IV ASDIRECTED [facility] Last Admin: 04/13/20 17:55 Dose: 20 mls/hr Documented by: Remdesivir 200 mg/ Sodium (Chloride) 250 mls @ 250 mls/hr IV ONETIME ONE Stop: 04/22/20 14:59 Last Admin: 04/22/20 14:23 Dose: 250 mls/hr Documented by: Remdesivir 100 mg/ Sodium (Chloride) 100 mls @ 100 mls/hr IV Q24H [facility] Stop: 04/26/20 14:59 Last Admin: 04/24/20 13:38 Dose: 100 mls/hr Documented by: Insulin Glargine (Lantus Solostar) 26 units SUBCUT BEDTIME [facility] Last Admin: 04/11/20 23:35 Dose: Not Given Documented by: Insulin Glargine (Lantus Solostar) 24 units SUBCUT BEDTIME [facility] Last Admin: 04/11/20 22:33 Dose: 24 units Documented by: Insulin Human Lispro (Humalog) 0 unit SUBCUT QIDACANDBED [facility]; Protocol Last Admin: 04/20/20 12:03 Dose: 6 units Documented by: Magnesium Hydroxide (Milk Of Magnesia) 30 ml PO DAILY [facility] Last Admin: 04/21/20 11:06 Dose: 30 ml Documented by: Senna/Docusate Sodium (Senna Plus) 1 tab PO BID [facility] Last Admin: 04/21/20 11:06 Dose: 1 tab Documented by: Sodium Polystyrene Sulfonate (Kayexalate) 15 gm PO ONETIME ONE Stop: 04/22/20 10:01 Last Admin: 04/22/20 11:34 Dose: 15 gm Documented by: - Exam Quality Assessment: Supplemental Oxygen, DVT Prophylaxis General: Alert, Oriented, Cooperative, Moderate Distress Lungs: Normal Respiratory Effort, Rhonchi. No: Crackles, Rales, Wheezing Cardiovascular: Regular Rate, Regular Rhythm, No Murmurs GI/Abdominal Exam: Soft, Non-Tender, No Organomegaly, No Distention Back Exam: Normal Inspection, Full Range of Motion Extremities: Non-Tender, No Pedal Edema Skin: Warm, Dry Sepsis Event Note - Evaluation Sepsis Screening Result: No Definite Risk - Focused Exam Vital Signs: Vital Signs Temp Pulse Resp BP Pulse Ox 04/27/20 10:00 81 16 129/48 L 96 04/27/20 09:00 80 17 143/42 H 93 L 04/27/20 08:00 96.5 F L 84 17 146/69 H 90 L 04/27/20 07:00 74 15 132/79 97 04/27/20 06:00 81 15 125/48 L 93 L 04/27/20 05:00 79 16 122/44 L 97 04/27/20 04:00 79 14 135/52 L 93 L 04/27/20 03:00 97.2 F 80 18 140/53 L 93 L 04/27/20 02:00 75 17 117/51 L 95 04/27/20 01:00 72 16 119/45 L 95 04/27/20 00:00 78 17 109/48 L 96 04/26/20 23:00 97.6 F 75 19 124/43 L 96 - Problem List Review Problem List Initiated/Reviewed/Updated: Yes - Plan Plan:: ASSESSMENT AND PLAN BILATERAL PNEUMONIA SECONDARY TO [id number] improvement over the last 24 hours with less shortness of breath and less need for respiratory support including oxygen -She has completed a course of Decadron, convalescent plasma -Noninvasive positive pressure ventilation needed -Saline lock IV -Supplemental oxygen as needed -Inhalers as needed ACUTE DVT -Enoxaparin 70 mg subcu daily, dose adjusted based on renal function CHRONIC KIDNEY DISEASE STAGE IV-renal function has remained stable through hospitalization -Closely monitor urine output and renal function TYPE 2 DIABETES MELLITUS -Continue usual dose of long-acting insulin -4 times daily glucometers -Moderate dose sliding scale Humalog MAINTENANCE ISSUES -DVT prophylaxis; Lovenox 30 mg subcu daily -GI prophylaxis; not indicated -Figueroa catheter; not indicated -Nutrition; consistent carbohydrate diet -Nicotine dependence; not required CODE STATUS-FULL CODE; I discussed this with the patient when she was seen in the emergency department and she is adamant about aggressive care including intubation if needed ADMISSION STATUS-patient will be admitted to inpatient status, expect at least a 2 night hospital stay for evaluation and management of problems as outlined above. At the time of this admission I do not reasonably expected evaluation and management of this problem will require more than a 96 hour hospital stay. DISPOSITION-anticipate discharge to home after the hospital stay. PRIMARY CARE PROVIDER-
[2020-04-27] MEDS: Benzocaine/Cetylpyridinium/Menthol Lozenge MUCMEM PRN (14:48)
[2020-04-27] MEDS: Enoxaparin 80 MG/0.8 ML Syringe SUBCUT SCH (17:33)
[2020-04-27] MEDS: Insulin Glargine,Human Rec. Analog 100 Units/ML 3 ML Pen SUBCUT SCH (20:56)
[2020-04-27] MEDS: Gabapentin 100 MG Cap PO SCH (21:04)
[2020-04-27] MEDS: oxyCODONE 5 MG Tab PO PRN (21:04)
[2020-04-27] MEDS: Melatonin 3 MG Tab PO PRN (21:04)
[2020-04-28] MEDS: oxyCODONE 5 MG Tab PO PRN ×2 (04:45→20:47)
[2020-04-28] MEDS: Insulin Lispro 100 Unit/ML 3 ML KwikPen SUBCUT SCH ×4 (07:58→20:55)
[2020-04-28] MEDS: Tamoxifen 10 MG Tab PO SCH (07:59)
[2020-04-28] MEDS: Allopurinol 100 MG Tab PO SCH (07:59)
[2020-04-28] MEDS: Aspirin 81 MG Tab.Chew PO SCH (07:59)
--- NOTE | 2020-04-28 13:45 | CR ---
CHEST: Portable 04/28/2020 at 1:17 PM CLINICAL HISTORY:Hemoptysis, Covid positive, hypoxia COMPARISON:04/11/2020 FINDINGS: There are diffuse patchy bilateral pulmonary infiltrates significantly increased since prior study. Heart size is normal. There are atherosclerotic changes in the aorta. IMPRESSION: Moderate increase in diffuse bilateral pneumonic infiltrates.
[2020-04-28] MEDS: Enoxaparin 80 MG/0.8 ML Syringe SUBCUT SCH (16:26)
[2020-04-28] MEDS ORDERED: Furosemide 40 MG/4 ML VIAL IVPUSH ONE (17:15)
--- NOTE | 2020-04-28 17:21 | PCM.PN ---
- General Info Date of Service: 04/28/20 Subjective Update: Ms. Barnett is use of BiPAP, she does continue to require high flow oxygen at 15 L/min via nasal cannula. She has noted hemoptysis with sputum over the past 2 days. Sputum has been blood-tinged but she is not had clots or overt bleeding. Appetite and energy seem to be very slowly improving as is her respiratory status. Functional Status: Reports: Tolerating Diet, Urinating. Denies: Ambulating - Review of Systems General: Reports: Weakness, Fatigue. Denies: Fever, Chills Pulmonary: Reports: Shortness of Breath, Cough, Sputum, Hemoptysis. Denies: Pleuritic Chest Pain, Wheezing Cardiovascular: Reports: Dyspnea on Exertion. Denies: Chest Pain, Palpitations, Orthopnea, PND, Edema, Lightheadedness Gastrointestinal: Reports: No Symptoms Genitourinary: Reports: No Symptoms - Patient Data Vitals - Most Recent: Last Vital Signs Temp 96.8 F L 04/28/20 15:00 Pulse 91 04/28/20 17:00 Resp 18 04/28/20 17:00 BP 137/58 L 04/28/20 17:00 Pulse Ox 94 L 04/28/20 17:00 Weight - Most Recent: 156 lb 1.6 oz I&O - Last 24 Hours: Intake & Output 04/28/20 04/28/20 04/28/20 06:59 14:59 22:59 Intake Total 220 240 Balance 220 240 Lab Results Last 24 Hours: Laboratory Results - last 24 hr 04/28/20 04/28/20 04/28/20 Range/Units 04:20 04:20 04:20 WBC 12.7 H (4.5-11.0) K/uL RBC 3.80 (3.30-5.50) M/uL Hgb 11.9 L (12.0-15.0) g/dL Hct 36.8 (36.0-48.0) % MCV 97 (80-98) fL MCH 31 (27-31) pg MCHC 32 (32-36) % Plt Count 207 (150-400) K/uL Neut % (Auto) 79 H (36-66) % Lymph % (Auto) 13 L (24-44) % [place] % (Auto) 7 H (2-6) % Eos % (Auto) 1 L (2-4) % Baso % (Auto) 0 (0-1) % D-Dimer, Quantitative 1234.80 H (0.0-500.0) ng/mL Sodium 137 L (140-148) mmol/L Potassium 5.0 (3.6-5.2) mmol/L Chloride 103 (100-108) mmol/L Carbon Dioxide 28 (21-32) mmol/L Anion Gap 11.0 (5.0-14.0) mmol/L BUN 56 H (7-18) mg/dL Creatinine 1.5 H (0.6-1.0) mg/dL Est Cr Clr Drug Dosing 23.93 mL/min Estimated GFR (MDRD) 33 L (>60) Glucose 153 H (74-106) mg/dL Calcium 8.5 (8.5-10.1) mg/dL Ferritin 495 H (8-388) ng/ml Total Bilirubin 0.6 (0.2-1.0) mg/dL AST 32 (15-37) U/L ALT 25 (12-78) U/L Alkaline Phosphatase 63 (46-116) U/L C-Reactive Protein 3.29 H (0.0-0.3) mg/dL Total Protein 5.7 L (6.4-8.2) g/dL Albumin 1.6 L (3.4-5.0) g/dL Globulin 4.1 H (2.3-3.5) g/dL Albumin/Globulin Ratio 0.4 L (1.2-2.2) Med Orders - Current: Current Medications Acetaminophen (Tylenol) 650 mg PO Q4H PRN PRN Reason: Pain (Mild 1-3)/fever Last Admin: 04/26/20 20:26 Dose: 650 mg Documented by: Albuterol (Ventolin Hfa) 2 gm INH Q4H PRN PRN Reason: Shortness of Breath Last Admin: 04/21/20 19:08 Dose: 2 puff Documented by: Allopurinol (Zyloprim) 200 mg PO DAILY [facility] Last Admin: 04/28/20 07:59 Dose: 200 mg Documented by: Aspirin (Aspirin) 81 mg PO DAILY [facility] Last Admin: 04/28/20 07:59 Dose: 81 mg Documented by: Benzocaine/Menthol (Cepacol Sore Throat) 1 lozenge MUCMEM ASDIRECTED PRN PRN Reason: SORE THROAT Last Admin: 04/27/20 14:48 Dose: 1 lozenge Documented by: Dextrose (Glutose 15) 15 gm PO ONETIME PRN PRN Reason: Hypoglycemia Dextrose/Water (Dextrose 50% In Water) 50 ml IV ONETIME PRN PRN Reason: Hypoglycemia Enoxaparin Sodium (Lovenox) 70 mg SUBCUT Q24H [facility] Last Admin: 04/28/20 16:26 Dose: 70 mg Documented by: Furosemide (Lasix) 40 mg IVPUSH NOW ONE Stop: 04/28/20 17:16 Gabapentin (Neurontin) 100 mg PO BEDTIME [facility] Last Admin: 04/27/20 21:04 Dose: 100 mg Documented by: Insulin Glargine (Lantus Solostar) 24 units SUBCUT BEDTIME [facility] Last Admin: 04/27/20 20:56 Dose: 24 units Documented by: Insulin Human Lispro (Humalog) 0 unit SUBCUT QIDACANDBED [facility]; Protocol Last Admin: 04/28/20 16:29 Dose: 12 units Documented by: Lorazepam (Ativan) 0.5 mg IVPUSH Q2H PRN PRN Reason: Anxiety Last Admin: 04/18/20 07:55 Dose: 0.5 mg Documented by: Melatonin (Melatonin) 9 mg PO BEDTIME PRN PRN Reason: Insomnia Last Admin: 04/27/20 21:04 Dose: 9 mg Documented by: Ondansetron HCl (Zofran) 4 mg IV Q4H PRN PRN Reason: Nausea/Vomiting Oxycodone HCl (Oxycodone) 5 mg PO Q4H PRN PRN Reason: Pain Last Admin: 04/28/20 04:45 Dose: 5 mg Documented by: Polyethylene Glycol (Miralax) 17 gm PO DAILY PRN PRN Reason: Constipation Last Admin: 04/21/20 08:06 Dose: 17 gm Documented by: Sodium Chloride (Saline Flush) 10 ml FLUSH ASDIRECTED PRN PRN Reason: Keep Vein Open Last Admin: 04/15/20 09:45 Dose: 10 ml Documented by: Tamoxifen Citrate (Nolvadex) 20 mg PO DAILY [facility] Last Admin: 04/28/20 07:59 Dose: 20 mg Documented by: Discontinued Medications Acetaminophen (Tylenol) 650 mg PO ONCALL ONE Stop: 04/13/20 16:31 Last Admin: 04/13/20 17:02 Dose: 650 mg Documented by: Acetaminophen (Tylenol) 650 mg PO ONCALL ONE Stop: 04/14/20 14:31 Last Admin: 04/14/20 15:56 Dose: 650 mg Documented by: Acetaminophen (Tylenol) 650 mg PO ONCALL ONE Stop: 04/15/20 10:31 Last Admin: 04/15/20 09:44 Dose: 650 mg Documented by: Acetaminophen (Tylenol) 650 mg PO ONCALL ONE Stop: 04/16/20 09:01 Last Admin: 04/16/20 09:28 Dose: 650 mg Documented by: Albuterol (Proventil Neb Soln) 2.5 mg NEB Q4H PRN PRN Reason: Shortness Of Breath/wheezing Last Admin: 04/15/20 20:23 Dose: 2.5 mg Documented by: Benzocaine/Menthol (Cepacol Sore Throat) 1 lozenge MUCMEM ASDIRECTED PRN PRN Reason: SORE THROAT Benzocaine/Menthol (Cepacol Sore Throat) Confirm Administered Dose 1 lozenge .ROUTE .STK-MED ONE Stop: 04/12/20 21:32 Last Admin: 04/12/20 22:57 Dose: Not Given Documented by: Bisacodyl (Dulcolax) 5 mg PO DAILY [facility] Last Admin: 04/21/20 11:06 Dose: 5 mg Documented by: Dexamethasone (Dexamethasone) 6 mg IVPUSH ONETIME ONE Stop: 04/11/20 17:50 Last Admin: 04/11/20 18:08 Dose: 6 mg Documented by: Dexamethasone (Dexamethasone) Confirm Administered Dose 4 mg .ROUTE .STK-MED ONE Stop: 04/11/20 18:01 Last Admin: 04/11/20 18:11 Dose: Not Given Documented by: Dexamethasone (Decadron) 6 mg IVPUSH Q24H [facility] Last Admin: 04/25/20 19:41 Dose: 6 mg Documented by: Diphenhydramine HCl (Benadryl) 25 mg IVPUSH ONCALL ONE Stop: 04/13/20 16:31 Last Admin: 04/13/20 17:02 Dose: 25 mg Documented by: Diphenhydramine HCl (Benadryl) 25 mg IVPUSH ONCALL ONE Stop: 04/14/20 14:31 Last Admin: 04/14/20 15:56 Dose: 25 mg Documented by: Diphenhydramine HCl (Benadryl) 25 mg PO ONCALL ONE Stop: 04/15/20 10:31 Last Admin: 04/15/20 09:46 Dose: 25 mg Documented by: Diphenhydramine HCl (Benadryl) 25 mg PO ONCALL ONE Stop: 04/16/20 09:01 Last Admin: 04/16/20 09:28 Dose: 25 mg Documented by: Enoxaparin Sodium (Lovenox) 30 mg SUBCUT DAILY [facility] Last Admin: 04/11/20 21:39 Dose: 30 mg Documented by: Enoxaparin Sodium (Lovenox) 30 mg SUBCUT BEDTIME [facility] Last Admin: 04/22/20 20:11 Dose: 30 mg Documented by: Furosemide (Lasix) 40 mg IVPUSH NOW ONE Stop: 04/16/20 12:01 Last Admin: 04/16/20 12:26 Dose: 40 mg Documented by: Furosemide (Lasix) 40 mg IV ONETIME ONE Stop: 04/22/20 12:01 Last Admin: 04/22/20 12:01 Dose: 40 mg Documented by: Furosemide (Lasix) 40 mg IVPUSH ONETIME ONE Stop: 04/22/20 21:16 Last Admin: 04/22/20 21:46 Dose: 40 mg Documented by: Furosemide (Lasix) 40 mg IVPUSH ONETIME ONE Stop: 04/24/20 18:17 Last Admin: 04/24/20 18:39 Dose: 40 mg Documented by: Sodium Chloride (Normal Saline) 1,000 mls @ 1,000 mls/hr IV ASDIRECTED [facility] Last Admin: 04/11/20 17:14 Dose: 1,000 mls/hr Documented by: Sodium Chloride (Normal Saline) 1,000 mls @ 50 mls/hr IV ASDIRECTED [facility] Last Admin: 04/11/20 22:32 Dose: 50 mls/hr Documented by: Sodium Chloride (Normal Saline) 250 mls @ 20 mls/hr IV ASDIRECTED [facility] Last Admin: 04/13/20 17:55 Dose: 20 mls/hr Documented by: Remdesivir 200 mg/ Sodium (Chloride) 250 mls @ 250 mls/hr IV ONETIME ONE Stop: 04/22/20 14:59 Last Admin: 04/22/20 14:23 Dose: 250 mls/hr Documented by: Remdesivir 100 mg/ Sodium (Chloride) 100 mls @ 100 mls/hr IV Q24H [facility] Stop: 04/26/20 14:59 Last Admin: 04/24/20 13:38 Dose: 100 mls/hr Documented by: Insulin Glargine (Lantus Solostar) 26 units SUBCUT BEDTIME [facility] Last Admin: 04/11/20 23:35 Dose: Not Given Documented by: Insulin Glargine (Lantus Solostar) 24 units SUBCUT BEDTIME [facility] Last Admin: 04/11/20 22:33 Dose: 24 units Documented by: Insulin Human Lispro (Humalog) 0 unit SUBCUT QIDACANDBED [facility]; Protocol Last Admin: 04/20/20 12:03 Dose: 6 units Documented by: Magnesium Hydroxide (Milk Of Magnesia) 30 ml PO DAILY [facility] Last Admin: 04/21/20 11:06 Dose: 30 ml Documented by: Senna/Docusate Sodium (Senna Plus) 1 tab PO BID [facility] Last Admin: 04/21/20 11:06 Dose: 1 tab Documented by: Sodium Polystyrene Sulfonate (Kayexalate) 15 gm PO ONETIME ONE Stop: 04/22/20 10:01 Last Admin: 04/22/20 11:34 Dose: 15 gm Documented by: - Exam Quality Assessment: Supplemental Oxygen, DVT Prophylaxis General: Alert, Oriented, Cooperative, Mild Distress Lungs: Clear to Auscultation, Normal Respiratory Effort. No: Rales, Rhonchi, Wheezing Cardiovascular: Regular Rate, Regular Rhythm, No Murmurs GI/Abdominal Exam: Soft, Non-Tender, No Organomegaly, No Distention Extremities: Non-Tender, No Pedal Edema Sepsis Event Note - Evaluation Sepsis Screening Result: No Definite Risk - Focused Exam Vital Signs: Vital Signs Temp Pulse Resp BP Pulse Ox 04/28/20 17:00 91 18 137/58 L 94 L 04/28/20 16:00 86 18 137/58 L 89 L 04/28/20 15:00 96.8 F L 84 17 119/46 L 90 L 04/28/20 14:00 71 15 119/46 L 90 L 04/28/20 13:00 83 22 H 132/50 L 94 L 04/28/20 12:00 84 22 H 132/50 L 94 L 04/28/20 11:00 98 F 83 20 134/46 L 90 L 04/28/20 10:00 76 16 124/49 L 90 L 04/28/20 09:00 74 18 124/53 L 93 L 04/28/20 08:00 98.3 F 84 19 117/40 L 80 L 04/28/20 07:00 98.3 F 79 20 116/45 L 89 L 04/28/20 06:00 74 16 127/44 L 94 L - Problem List Review Problem List Initiated/Reviewed/Updated: Yes - My Orders Last 24 Hours: My Active Orders 04/28/20 17:15 Furosemide [Lasix] 40 mg IVPUSH NOW ONE 04/29/20 05:00 CBC WITH AUTO DIFF [HEME] Timed COMPREHENSIVE METABOLIC PN,CMP [CHEM] Timed 04/29/20 05:11 CRP [C-REACTIVE PROTEIN] [CHEM] AM FERRITIN [CHEM] AM - Plan Plan:: ASSESSMENT AND PLAN BILATERAL PNEUMONIA SECONDARY TO [id number] improvement over the last 24 hours with less shortness of breath, no longer requires use of BiPAP -She has completed a course of Decadron, convalescent plasma -Saline lock IV -Furosemide 40 mg IV today -Supplemental oxygen as needed -Inhalers as needed ACUTE DVT -Enoxaparin 70 mg subcu daily, dose adjusted based on renal function CHRONIC KIDNEY DISEASE STAGE IV-renal function has remained stable through hospitalization -Closely monitor urine output and renal function TYPE 2 DIABETES MELLITUS -Continue usual dose of long-acting insulin -4 times daily glucometers -Moderate dose sliding scale Humalog MAINTENANCE ISSUES -DVT prophylaxis; Lovenox 30 mg subcu daily -GI prophylaxis; not indicated -Figueroa catheter; not indicated -Nutrition; consistent carbohydrate diet -Nicotine dependence; not required CODE STATUS-FULL CODE; I discussed this with the patient when she was seen in the emergency department and she is adamant about aggressive care including intubation if needed ADMISSION STATUS-patient will be admitted to inpatient status, expect at least a 2 night hospital stay for evaluation and management of problems as outlined above. At the time of this admission I do not reasonably expected evaluation and management of this problem will require more than a 96 hour hospital stay. DISPOSITION-anticipate discharge to home after the hospital stay. PRIMARY CARE PROVIDER-
[2020-04-28] MEDS: Gabapentin 100 MG Cap PO SCH (20:51)
[2020-04-28] MEDS: Insulin Glargine,Human Rec. Analog 100 Units/ML 3 ML Pen SUBCUT SCH (20:56)
[2020-04-28] MEDS: Melatonin 3 MG Tab PO PRN (20:59)
[2020-04-28] MEDS: LORazepam 2 MG/ML SDV IVPUSH PRN (22:14)
[2020-04-29] MEDS: Acetaminophen 325 MG Tab PO PRN (05:58)
[2020-04-29] MEDS: LORazepam 2 MG/ML SDV IVPUSH PRN (06:02)
[2020-04-29] MEDS ORDERED: Furosemide 40 MG/4 ML VIAL IVPUSH ONE (08:30)
[2020-04-29] MEDS: Aspirin 81 MG Tab.Chew PO SCH (09:27)
[2020-04-29] MEDS: Tamoxifen 10 MG Tab PO SCH (09:28)
[2020-04-29] MEDS: Allopurinol 100 MG Tab PO SCH (09:28)
[2020-04-29] MEDS: Insulin Lispro 100 Unit/ML 3 ML KwikPen SUBCUT SCH ×4 (09:32→21:18)
--- NOTE | 2020-04-29 15:01 | PCM.PN ---
- General Info Date of Service: 04/29/20 Subjective Update: not changed significantly over the last 24 hours. During that period of time has intermittently used BiPAP and continues to require a high level of supplemental oxygen. Vital signs have been stable and she has remained afebrile with a normal white blood cell count. Follow-up chest x-ray yesterday showed persistent bilateral infiltrates. Functional Status: Reports: Urinating - Review of Systems General: Reports: Weakness, Fatigue. Denies: Fever, Chills Pulmonary: Reports: Shortness of Breath, Cough, Sputum. Denies: Pleuritic Chest Pain, Hemoptysis, Wheezing Cardiovascular: Reports: Dyspnea on Exertion. Denies: Chest Pain, Palpitations, Orthopnea, PND, Edema, Lightheadedness Gastrointestinal: Reports: No Symptoms Genitourinary: Reports: No Symptoms - Patient Data Vitals - Most Recent: Last Vital Signs Temp 98.8 F 04/29/20 12:00 Pulse 82 04/29/20 06:00 Resp 16 04/29/20 14:00 BP 107/37 L 04/29/20 14:00 Pulse Ox 98 04/29/20 14:00 Weight - Most Recent: 153 lb 8 oz I&O - Last 24 Hours: Intake & Output 04/28/20 04/29/20 04/29/20 22:59 06:59 14:59 Intake Total 480 400 Balance 480 400 Lab Results Last 24 Hours: Laboratory Results - last 24 hr 04/29/20 04/29/20 04/29/20 Range/Units 04:50 04:50 04:50 WBC 10.3 (4.5-11.0) K/uL RBC 3.76 (3.30-5.50) M/uL Hgb 11.5 L (12.0-15.0) g/dL Hct 36.5 (36.0-48.0) % MCV 97 (80-98) fL MCH 31 (27-31) pg MCHC 32 (32-36) % Plt Count 167 (150-400) K/uL Neut % (Auto) 76 H (36-66) % Lymph % (Auto) 15 L (24-44) % Dawes % (Auto) 7 H (2-6) % Eos % (Auto) 2 (2-4) % Baso % (Auto) 0 (0-1) % Sodium 135 L (140-148) mmol/L Potassium 4.7 (3.6-5.2) mmol/L Chloride 101 (100-108) mmol/L Carbon Dioxide 31 (21-32) mmol/L Anion Gap 7.7 (5.0-14.0) mmol/L BUN 51 H (7-18) mg/dL Creatinine 1.4 H (0.6-1.0) mg/dL Est Cr Clr Drug Dosing 25.64 mL/min Estimated GFR (MDRD) 35 L (>60) Glucose 113 H (74-106) mg/dL Calcium 8.6 (8.5-10.1) mg/dL Ferritin 383 (8-388) ng/ml Total Bilirubin 0.7 (0.2-1.0) mg/dL AST 26 (15-37) U/L ALT 21 (12-78) U/L Alkaline Phosphatase 60 (46-116) U/L C-Reactive Protein 3.90 H (0.0-0.3) mg/dL Total Protein 5.6 L (6.4-8.2) g/dL Albumin 1.6 L (3.4-5.0) g/dL Globulin 4.0 H (2.3-3.5) g/dL Albumin/Globulin Ratio 0.4 L (1.2-2.2) Med Orders - Current: Current Medications Acetaminophen (Tylenol) 650 mg PO Q4H PRN PRN Reason: Pain (Mild 1-3)/fever Last Admin: 04/29/20 05:58 Dose: 650 mg Documented by: Albuterol (Ventolin Hfa) 2 gm INH Q4H PRN PRN Reason: Shortness of Breath Last Admin: 04/21/20 19:08 Dose: 2 puff Documented by: Allopurinol (Zyloprim) 200 mg PO DAILY [facility] Last Admin: 04/29/20 09:28 Dose: 200 mg Documented by: Aspirin (Aspirin) 81 mg PO DAILY [facility] Last Admin: 04/29/20 09:27 Dose: 81 mg Documented by: Benzocaine/Menthol (Cepacol Sore Throat) 1 lozenge MUCMEM ASDIRECTED PRN PRN Reason: SORE THROAT Last Admin: 04/27/20 14:48 Dose: 1 lozenge Documented by: Dextrose (Glutose 15) 15 gm PO ONETIME PRN PRN Reason: Hypoglycemia Dextrose/Water (Dextrose 50% In Water) 50 ml IV ONETIME PRN PRN Reason: Hypoglycemia Enoxaparin Sodium (Lovenox) 70 mg SUBCUT Q24H [facility] Last Admin: 04/28/20 16:26 Dose: 70 mg Documented by: Gabapentin (Neurontin) 100 mg PO BEDTIME NABILA Last Admin: 04/28/20 20:51 Dose: 100 mg Documented by: Insulin Glargine (Lantus Solostar) 24 units SUBCUT BEDTIME [facility] Last Admin: 04/28/20 20:56 Dose: 24 units Documented by: Insulin Human Lispro (Humalog) 0 unit SUBCUT QIDACANDBED [facility]; Protocol Last Admin: 04/29/20 11:28 Dose: 3 units Documented by: Lorazepam (Ativan) 0.5 mg IVPUSH Q2H PRN PRN Reason: Anxiety Last Admin: 04/29/20 06:02 Dose: 0.5 mg Documented by: Melatonin (Melatonin) 9 mg PO BEDTIME PRN PRN Reason: Insomnia Last Admin: 04/28/20 20:59 Dose: 9 mg Documented by: Ondansetron HCl (Zofran) 4 mg IV Q4H PRN PRN Reason: Nausea/Vomiting Oxycodone HCl (Oxycodone) 5 mg PO Q4H PRN PRN Reason: Pain Last Admin: 04/28/20 20:47 Dose: 5 mg Documented by: Polyethylene Glycol (Miralax) 17 gm PO DAILY PRN PRN Reason: Constipation Last Admin: 04/21/20 08:06 Dose: 17 gm Documented by: Sodium Chloride (Saline Flush) 10 ml FLUSH ASDIRECTED PRN PRN Reason: Keep Vein Open Last Admin: 04/15/20 09:45 Dose: 10 ml Documented by: Tamoxifen Citrate (Nolvadex) 20 mg PO DAILY [facility] Last Admin: 04/29/20 09:28 Dose: 20 mg Documented by: Discontinued Medications Acetaminophen (Tylenol) 650 mg PO ONCALL ONE Stop: 04/13/20 16:31 Last Admin: 04/13/20 17:02 Dose: 650 mg Documented by: Acetaminophen (Tylenol) 650 mg PO ONCALL ONE Stop: 04/14/20 14:31 Last Admin: 04/14/20 15:56 Dose: 650 mg Documented by: Acetaminophen (Tylenol) 650 mg PO ONCALL ONE Stop: 04/15/20 10:31 Last Admin: 04/15/20 09:44 Dose: 650 mg Documented by: Acetaminophen (Tylenol) 650 mg PO ONCALL ONE Stop: 04/16/20 09:01 Last Admin: 04/16/20 09:28 Dose: 650 mg Documented by: Albuterol (Proventil Neb Soln) 2.5 mg NEB Q4H PRN PRN Reason: Shortness Of Breath/wheezing Last Admin: 04/15/20 20:23 Dose: 2.5 mg Documented by: Benzocaine/Menthol (Cepacol Sore Throat) 1 lozenge MUCMEM ASDIRECTED PRN PRN Reason: SORE THROAT Benzocaine/Menthol (Cepacol Sore Throat) Confirm Administered Dose 1 lozenge .ROUTE .STK-MED ONE Stop: 04/12/20 21:32 Last Admin: 04/12/20 22:57 Dose: Not Given Documented by: Bisacodyl (Dulcolax) 5 mg PO DAILY [facility] Last Admin: 04/21/20 11:06 Dose: 5 mg Documented by: Dexamethasone (Dexamethasone) 6 mg IVPUSH ONETIME ONE Stop: 04/11/20 17:50 Last Admin: 04/11/20 18:08 Dose: 6 mg Documented by: Dexamethasone (Dexamethasone) Confirm Administered Dose 4 mg .ROUTE .STK-MED ONE Stop: 04/11/20 18:01 Last Admin: 04/11/20 18:11 Dose: Not Given Documented by: Dexamethasone (Decadron) 6 mg IVPUSH Q24H [facility] Last Admin: 04/25/20 19:41 Dose: 6 mg Documented by: Diphenhydramine HCl (Benadryl) 25 mg IVPUSH ONCALL ONE Stop: 04/13/20 16:31 Last Admin: 04/13/20 17:02 Dose: 25 mg Documented by: Diphenhydramine HCl (Benadryl) 25 mg IVPUSH ONCALL ONE Stop: 04/14/20 14:31 Last Admin: 04/14/20 15:56 Dose: 25 mg Documented by: Diphenhydramine HCl (Benadryl) 25 mg PO ONCALL ONE Stop: 04/15/20 10:31 Last Admin: 04/15/20 09:46 Dose: 25 mg Documented by: Diphenhydramine HCl (Benadryl) 25 mg PO ONCALL ONE Stop: 04/16/20 09:01 Last Admin: 04/16/20 09:28 Dose: 25 mg Documented by: Enoxaparin Sodium (Lovenox) 30 mg SUBCUT DAILY [facility] Last Admin: 04/11/20 21:39 Dose: 30 mg Documented by: Enoxaparin Sodium (Lovenox) 30 mg SUBCUT BEDTIME [facility] Last Admin: 04/22/20 20:11 Dose: 30 mg Documented by: Furosemide (Lasix) 40 mg IVPUSH NOW ONE Stop: 04/16/20 12:01 Last Admin: 04/16/20 12:26 Dose: 40 mg Documented by: Furosemide (Lasix) 40 mg IV ONETIME ONE Stop: 04/22/20 12:01 Last Admin: 04/22/20 12:01 Dose: 40 mg Documented by: Furosemide (Lasix) 40 mg IVPUSH ONETIME ONE Stop: 04/22/20 21:16 Last Admin: 04/22/20 21:46 Dose: 40 mg Documented by: Furosemide (Lasix) 40 mg IVPUSH ONETIME ONE Stop: 04/24/20 18:17 Last Admin: 04/24/20 18:39 Dose: 40 mg Documented by: Furosemide (Lasix) 40 mg IVPUSH NOW ONE Stop: 04/28/20 17:16 Last Admin: 04/28/20 18:42 Dose: 40 mg Documented by: Furosemide (Lasix) 40 mg IVPUSH NOW ONE Stop: 04/29/20 08:31 Last Admin: 04/29/20 09:28 Dose: 40 mg Documented by: Sodium Chloride (Normal Saline) 1,000 mls @ 1,000 mls/hr IV ASDIRECTED NABILA Last Admin: 04/11/20 17:14 Dose: 1,000 mls/hr Documented by: Sodium Chloride (Normal Saline) 1,000 mls @ 50 mls/hr IV ASDIRECTED NABILA Last Admin: 04/11/20 22:32 Dose: 50 mls/hr Documented by: Sodium Chloride (Normal Saline) 250 mls @ 20 mls/hr IV ASDIRECTED NABILA Last Admin: 04/13/20 17:55 Dose: 20 mls/hr Documented by: Remdesivir 200 mg/ Sodium (Chloride) 250 mls @ 250 mls/hr IV ONETIME ONE Stop: 04/22/20 14:59 Last Admin: 04/22/20 14:23 Dose: 250 mls/hr Documented by: Remdesivir 100 mg/ Sodium (Chloride) 100 mls @ 100 mls/hr IV Q24H [facility] Stop: 04/26/20 14:59 Last Admin: 04/24/20 13:38 Dose: 100 mls/hr Documented by: Insulin Glargine (Lantus Solostar) 26 units SUBCUT BEDTIME [facility] Last Admin: 04/11/20 23:35 Dose: Not Given Documented by: Insulin Glargine (Lantus Solostar) 24 units SUBCUT BEDTIME [facility] Last Admin: 04/11/20 22:33 Dose: 24 units Documented by: Insulin Human Lispro (Humalog) 0 unit SUBCUT QIDACANDBED [facility]; Protocol Last Admin: 04/20/20 12:03 Dose: 6 units Documented by: Magnesium Hydroxide (Milk Of Magnesia) 30 ml PO DAILY [facility] Last Admin: 04/21/20 11:06 Dose: 30 ml Documented by: Senna/Docusate Sodium (Senna Plus) 1 tab PO BID [facility] Last Admin: 04/21/20 11:06 Dose: 1 tab Documented by: Sodium Polystyrene Sulfonate (Kayexalate) 15 gm PO ONETIME ONE Stop: 04/22/20 10:01 Last Admin: 04/22/20 11:34 Dose: 15 gm Documented by: - Exam Quality Assessment: Supplemental Oxygen, DVT Prophylaxis General: Alert, Oriented, Cooperative, Moderate Distress Lungs: Clear to Auscultation, Normal Respiratory Effort, Decreased Breath Sounds. No: Rales, Rhonchi, Wheezing Cardiovascular: Regular Rate, Regular Rhythm, No Murmurs GI/Abdominal Exam: Soft, Non-Tender, No Organomegaly, No Distention Extremities: Non-Tender, No Pedal Edema Sepsis Event Note - Evaluation Sepsis Screening Result: No Definite Risk - Focused Exam Vital Signs: Vital Signs Temp Pulse Resp BP Pulse Ox 04/29/20 14:00 16 107/37 L 98 04/29/20 12:00 98.8 F 16 112/39 L 97 04/29/20 10:00 16 95/44 L 96 04/29/20 09:00 18 100/65 96 04/29/20 08:00 97.1 F 18 91/46 L 93 L 04/29/20 06:00 82 19 103/54 L 94 L 04/29/20 05:00 77 18 89/37 L 93 L 04/29/20 04:00 98.4 F 79 18 101/54 L 93 L 04/29/20 03:00 80 18 106/55 L 96 - Problem List Review Problem List Initiated/Reviewed/Updated: Yes - My Orders Last 24 Hours: My Active Orders 04/30/20 05:00 CBC WITH AUTO DIFF [HEME] Timed COMPREHENSIVE METABOLIC PN,CMP [CHEM] Timed 04/30/20 05:11 CRP [C-REACTIVE PROTEIN] [CHEM] AM D Dimer [D-DIMER QUANTITATIVE] [COAG] AM FERRITIN [CHEM] AM - Plan Plan:: ASSESSMENT AND PLAN BILATERAL PNEUMONIA SECONDARY TO [id number] BiPAP again intermittently and continues to require high level of supplemental oxygen. No better or worse over the last 24 hours -She has completed a course of Decadron, convalescent plasma -Saline lock IV -Furosemide 40 mg IV today -Supplemental oxygen as needed -Inhalers as needed ACUTE DVT -Enoxaparin 70 mg subcu daily, dose adjusted based on renal function CHRONIC KIDNEY DISEASE STAGE IV-renal function has remained stable through hospitalization -Closely monitor urine output and renal function TYPE 2 DIABETES MELLITUS -Continue usual dose of long-acting insulin -4 times daily glucometers -Moderate dose sliding scale Humalog MAINTENANCE ISSUES -DVT prophylaxis; Lovenox 30 mg subcu daily -GI prophylaxis; not indicated -Figueroa catheter; not indicated -Nutrition; consistent carbohydrate diet -Nicotine dependence; not required CODE STATUS-FULL CODE; I discussed this with the patient when she was seen in the emergency department and she is adamant about aggressive care including intubation if needed ADMISSION STATUS-patient will be admitted to inpatient status, expect at least a 2 night hospital stay for evaluation and management of problems as outlined above. At the time of this admission I do not reasonably expected evaluation and management of this problem will require more than a 96 hour hospital stay. DISPOSITION-anticipate discharge to home after the hospital stay. PRIMARY CARE PROVIDER-
[2020-04-29] MEDS: Enoxaparin 80 MG/0.8 ML Syringe SUBCUT SCH (16:16)
[2020-04-29] MEDS: Insulin Glargine,Human Rec. Analog 100 Units/ML 3 ML Pen SUBCUT SCH (21:18)
[2020-04-29] MEDS: Gabapentin 100 MG Cap PO SCH (21:19)
[2020-04-29] MEDS: oxyCODONE 5 MG Tab PO PRN (21:19)
[2020-04-29] MEDS: Melatonin 3 MG Tab PO PRN (21:20)
[2020-04-30] MEDS: LORazepam 2 MG/ML SDV IVPUSH PRN ×2 (06:03→21:00)
[2020-04-30] MEDS: Insulin Lispro 100 Unit/ML 3 ML KwikPen SUBCUT SCH ×4 (08:44→20:58)
[2020-04-30] MEDS: Aspirin 81 MG Tab.Chew PO SCH (08:45)
[2020-04-30] MEDS: Allopurinol 100 MG Tab PO SCH (08:45)
[2020-04-30] MEDS: Tamoxifen 10 MG Tab PO SCH (08:45)
[2020-04-30] MEDS ORDERED: Meropenem 1 GM in Sodium Chloride 0.9% 100 ML IV SCH ×2 (11:15→12:00)
--- NOTE | 2020-04-30 11:28 | PCM.PN ---
- General Info Date of Service: 04/30/20 Subjective Update: Ms. Barnett seems to have taken a step back in her recovery over the past few days. She continues to require high level of supplemental oxygen and has developed purulent sputum. White blood cell count has remained normal but CRP has been slowly increasing. Remained afebrile and otherwise has been hemodynamically stable. She denies significant increase in shortness of breath. Functional Status: Reports: Tolerating Diet, Urinating. Denies: Ambulating - Review of Systems General: Reports: Weakness, Fatigue. Denies: Fever, Chills Pulmonary: Reports: Shortness of Breath, Cough, Sputum, Hemoptysis. Denies: Pleuritic Chest Pain, Wheezing Cardiovascular: Reports: Dyspnea on Exertion. Denies: Chest Pain, Palpitations, Orthopnea, PND, Edema, Lightheadedness Gastrointestinal: Reports: No Symptoms - Patient Data Vitals - Most Recent: Last Vital Signs Temp 96 F L 04/30/20 08:00 Pulse 82 04/29/20 06:00 Resp 16 04/30/20 10:00 BP 111/73 04/30/20 10:00 Pulse Ox 93 L 04/30/20 10:00 Weight - Most Recent: 156 lb 4.8 oz I&O - Last 24 Hours: Intake & Output 04/29/20 04/30/20 04/30/20 22:59 06:59 14:59 Intake Total 400 300 Balance 400 300 Lab Results Last 24 Hours: Laboratory Results - last 24 hr 04/30/20 04/30/20 04/30/20 Range/Units 06:05 06:05 06:05 WBC 10.0 (4.5-11.0) K/uL RBC 3.67 (3.30-5.50) M/uL Hgb 11.6 L (12.0-15.0) g/dL Hct 36.1 (36.0-48.0) % MCV 98 (80-98) fL MCH 32 H (27-31) pg MCHC 32 (32-36) % Plt Count 143 L (150-400) K/uL Neut % (Auto) 66 (36-66) % Lymph % (Auto) 23 L (24-44) % [place] % (Auto) 8 H (2-6) % Eos % (Auto) 3 (2-4) % Baso % (Auto) 0 (0-1) % D-Dimer, Quantitative 1374.79 H (0.0-500.0) ng/mL Sodium 133 L (140-148) mmol/L Potassium 4.2 (3.6-5.2) mmol/L Chloride 98 L (100-108) mmol/L Carbon Dioxide 31 (21-32) mmol/L Anion Gap 8.2 (5.0-14.0) mmol/L BUN 52 H (7-18) mg/dL Creatinine 1.4 H (0.6-1.0) mg/dL Est Cr Clr Drug Dosing 25.64 mL/min Estimated GFR (MDRD) 35 L (>60) Glucose 79 (74-106) mg/dL Calcium 8.7 (8.5-10.1) mg/dL Ferritin (8-388) ng/ml Total Bilirubin 0.7 (0.2-1.0) mg/dL AST 24 (15-37) U/L ALT 20 (12-78) U/L Alkaline Phosphatase 62 (46-116) U/L C-Reactive Protein (0.0-0.3) mg/dL Total Protein 5.5 L (6.4-8.2) g/dL Albumin 1.5 L (3.4-5.0) g/dL Globulin 4.0 H (2.3-3.5) g/dL Albumin/Globulin Ratio 0.4 L (1.2-2.2) 04/30/20 Range/Units 06:05 WBC (4.5-11.0) K/uL RBC (3.30-5.50) M/uL Hgb (12.0-15.0) g/dL Hct (36.0-48.0) % MCV (80-98) fL MCH (27-31) pg MCHC (32-36) % Plt Count (150-400) K/uL Neut % (Auto) (36-66) % Lymph % (Auto) (24-44) % [place] % (Auto) (2-6) % Eos % (Auto) (2-4) % Baso % (Auto) (0-1) % D-Dimer, Quantitative (0.0-500.0) ng/mL Sodium (140-148) mmol/L Potassium (3.6-5.2) mmol/L Chloride (100-108) mmol/L Carbon Dioxide (21-32) mmol/L Anion Gap (5.0-14.0) mmol/L BUN (7-18) mg/dL Creatinine (0.6-1.0) mg/dL Est Cr Clr Drug Dosing mL/min Estimated GFR (MDRD) (>60) Glucose (74-106) mg/dL Calcium (8.5-10.1) mg/dL Ferritin 396 H (8-388) ng/ml Total Bilirubin (0.2-1.0) mg/dL AST (15-37) U/L ALT (12-78) U/L Alkaline Phosphatase (46-116) U/L C-Reactive Protein 4.88 H (0.0-0.3) mg/dL Total Protein (6.4-8.2) g/dL Albumin (3.4-5.0) g/dL Globulin (2.3-3.5) g/dL Albumin/Globulin Ratio (1.2-2.2) Med Orders - Current: Current Medications Acetaminophen (Tylenol) 650 mg PO Q4H PRN PRN Reason: Pain (Mild 1-3)/fever Last Admin: 04/29/20 05:58 Dose: 650 mg Documented by: Albuterol (Ventolin Hfa) 2 gm INH Q4H PRN PRN Reason: Shortness of Breath Last Admin: 04/21/20 19:08 Dose: 2 puff Documented by: Allopurinol (Zyloprim) 200 mg PO DAILY [facility] Last Admin: 04/30/20 08:45 Dose: 200 mg Documented by: Aspirin (Aspirin) 81 mg PO DAILY [facility] Last Admin: 04/30/20 08:45 Dose: 81 mg Documented by: Benzocaine/Menthol (Cepacol Sore Throat) 1 lozenge MUCMEM ASDIRECTED PRN PRN Reason: SORE THROAT Last Admin: 04/27/20 14:48 Dose: 1 lozenge Documented by: Dextrose (Glutose 15) 15 gm PO ONETIME PRN PRN Reason: Hypoglycemia Dextrose/Water (Dextrose 50% In Water) 50 ml IV ONETIME PRN PRN Reason: Hypoglycemia Enoxaparin Sodium (Lovenox) 70 mg SUBCUT Q24H [facility] Last Admin: 04/29/20 16:16 Dose: 70 mg Documented by: Gabapentin (Neurontin) 100 mg PO BEDTIME NABILA Last Admin: 04/29/20 21:19 Dose: 100 mg Documented by: Levofloxacin/Dextrose 750 mg/ (Premix) 150 mls @ 100 mls/hr IV ONETIME ONE Stop: 04/30/20 12:43 Levofloxacin/Dextrose 500 mg/ (Premix) 100 mls @ 100 mls/hr IV Q48H NABILA Meropenem 1 gm/ Sodium (Chloride) 100 mls @ 200 mls/hr IV Q12H NABILA Insulin Glargine (Lantus Solostar) 24 units SUBCUT BEDTIME [facility] Last Admin: 04/29/20 21:18 Dose: 24 units Documented by: Insulin Human Lispro (Humalog) 0 unit SUBCUT QIDACANDBED [facility]; Protocol Last Admin: 04/30/20 08:44 Dose: Not Given Documented by: Lactobacillus Rhamnosus (Culturelle) 1 cap PO BID [facility] Lorazepam (Ativan) 0.5 mg IVPUSH Q2H PRN PRN Reason: Anxiety Last Admin: 04/30/20 06:03 Dose: 0.5 mg Documented by: Melatonin (Melatonin) 9 mg PO BEDTIME PRN PRN Reason: Insomnia Last Admin: 04/29/20 21:20 Dose: 9 mg Documented by: Ondansetron HCl (Zofran) 4 mg IV Q4H PRN PRN Reason: Nausea/Vomiting Oxycodone HCl (Oxycodone) 5 mg PO Q4H PRN PRN Reason: Pain Last Admin: 04/29/20 21:19 Dose: 5 mg Documented by: Polyethylene Glycol (Miralax) 17 gm PO DAILY PRN PRN Reason: Constipation Last Admin: 04/21/20 08:06 Dose: 17 gm Documented by: Sodium Chloride (Saline Flush) 10 ml FLUSH ASDIRECTED PRN PRN Reason: Keep Vein Open Last Admin: 04/15/20 09:45 Dose: 10 ml Documented by: Tamoxifen Citrate (Nolvadex) 20 mg PO DAILY NABILA Last Admin: 04/30/20 08:45 Dose: 20 mg Documented by: Vancomycin HCl (Vancomycin) 1 gm IV .PHARMACY TO DOSE [facility] Discontinued Medications Acetaminophen (Tylenol) 650 mg PO ONCALL ONE Stop: 04/13/20 16:31 Last Admin: 04/13/20 17:02 Dose: 650 mg Documented by: Acetaminophen (Tylenol) 650 mg PO ONCALL ONE Stop: 04/14/20 14:31 Last Admin: 04/14/20 15:56 Dose: 650 mg Documented by: Acetaminophen (Tylenol) 650 mg PO ONCALL ONE Stop: 04/15/20 10:31 Last Admin: 04/15/20 09:44 Dose: 650 mg Documented by: Acetaminophen (Tylenol) 650 mg PO ONCALL ONE Stop: 04/16/20 09:01 Last Admin: 04/16/20 09:28 Dose: 650 mg Documented by: Albuterol (Proventil Neb Soln) 2.5 mg NEB Q4H PRN PRN Reason: Shortness Of Breath/wheezing Last Admin: 04/15/20 20:23 Dose: 2.5 mg Documented by: Benzocaine/Menthol (Cepacol Sore Throat) 1 lozenge MUCMEM ASDIRECTED PRN PRN Reason: SORE THROAT Benzocaine/Menthol (Cepacol Sore Throat) Confirm Administered Dose 1 lozenge .ROUTE .STK-MED ONE Stop: 04/12/20 21:32 Last Admin: 04/12/20 22:57 Dose: Not Given Documented by: Bisacodyl (Dulcolax) 5 mg PO DAILY [facility] Last Admin: 04/21/20 11:06 Dose: 5 mg Documented by: Dexamethasone (Dexamethasone) 6 mg IVPUSH ONETIME ONE Stop: 04/11/20 17:50 Last Admin: 04/11/20 18:08 Dose: 6 mg Documented by: Dexamethasone (Dexamethasone) Confirm Administered Dose 4 mg .ROUTE .STK-MED ONE Stop: 04/11/20 18:01 Last Admin: 04/11/20 18:11 Dose: Not Given Documented by: Dexamethasone (Decadron) 6 mg IVPUSH Q24H [facility] Last Admin: 04/25/20 19:41 Dose: 6 mg Documented by: Diphenhydramine HCl (Benadryl) 25 mg IVPUSH ONCALL ONE Stop: 04/13/20 16:31 Last Admin: 04/13/20 17:02 Dose: 25 mg Documented by: Diphenhydramine HCl (Benadryl) 25 mg IVPUSH ONCALL ONE Stop: 04/14/20 14:31 Last Admin: 04/14/20 15:56 Dose: 25 mg Documented by: Diphenhydramine HCl (Benadryl) 25 mg PO ONCALL ONE Stop: 04/15/20 10:31 Last Admin: 04/15/20 09:46 Dose: 25 mg Documented by: Diphenhydramine HCl (Benadryl) 25 mg PO ONCALL ONE Stop: 04/16/20 09:01 Last Admin: 04/16/20 09:28 Dose: 25 mg Documented by: Enoxaparin Sodium (Lovenox) 30 mg SUBCUT DAILY [facility] Last Admin: 04/11/20 21:39 Dose: 30 mg Documented by: Enoxaparin Sodium (Lovenox) 30 mg SUBCUT BEDTIME [facility] Last Admin: 04/22/20 20:11 Dose: 30 mg Documented by: Furosemide (Lasix) 40 mg IVPUSH NOW ONE Stop: 04/16/20 12:01 Last Admin: 04/16/20 12:26 Dose: 40 mg Documented by: Furosemide (Lasix) 40 mg IV ONETIME ONE Stop: 04/22/20 12:01 Last Admin: 04/22/20 12:01 Dose: 40 mg Documented by: Furosemide (Lasix) 40 mg IVPUSH ONETIME ONE Stop: 04/22/20 21:16 Last Admin: 04/22/20 21:46 Dose: 40 mg Documented by: Furosemide (Lasix) 40 mg IVPUSH ONETIME ONE Stop: 04/24/20 18:17 Last Admin: 04/24/20 18:39 Dose: 40 mg Documented by: Furosemide (Lasix) 40 mg IVPUSH NOW ONE Stop: 04/28/20 17:16 Last Admin: 04/28/20 18:42 Dose: 40 mg Documented by: Furosemide (Lasix) 40 mg IVPUSH NOW ONE Stop: 04/29/20 08:31 Last Admin: 04/29/20 09:28 Dose: 40 mg Documented by: Sodium Chloride (Normal Saline) 1,000 mls @ 1,000 mls/hr IV ASDIRECTED [facility] Last Admin: 04/11/20 17:14 Dose: 1,000 mls/hr Documented by: Sodium Chloride (Normal Saline) 1,000 mls @ 50 mls/hr IV ASDIRECTED [facility] Last Admin: 04/11/20 22:32 Dose: 50 mls/hr Documented by: Sodium Chloride (Normal Saline) 250 mls @ 20 mls/hr IV ASDIRECTED [facility] Last Admin: 04/13/20 17:55 Dose: 20 mls/hr Documented by: Remdesivir 200 mg/ Sodium (Chloride) 250 mls @ 250 mls/hr IV ONETIME ONE Stop: 04/22/20 14:59 Last Admin: 04/22/20 14:23 Dose: 250 mls/hr Documented by: Remdesivir 100 mg/ Sodium (Chloride) 100 mls @ 100 mls/hr IV Q24H [facility] Stop: 04/26/20 14:59 Last Admin: 04/24/20 13:38 Dose: 100 mls/hr Documented by: Meropenem 1 gm/ Sodium (Chloride) 100 mls @ 200 mls/hr IV Q8H [facility] Insulin Glargine (Lantus Solostar) 26 units SUBCUT BEDTIME [facility] Last Admin: 04/11/20 23:35 Dose: Not Given Documented by: Insulin Glargine (Lantus Solostar) 24 units SUBCUT BEDTIME [facility] Last Admin: 04/11/20 22:33 Dose: 24 units Documented by: Insulin Human Lispro (Humalog) 0 unit SUBCUT QIDACANDBED [facility]; Protocol Last Admin: 04/20/20 12:03 Dose: 6 units Documented by: Magnesium Hydroxide (Milk Of Magnesia) 30 ml PO DAILY [facility] Last Admin: 04/21/20 11:06 Dose: 30 ml Documented by: Senna/Docusate Sodium (Senna Plus) 1 tab PO BID [facility] Last Admin: 04/21/20 11:06 Dose: 1 tab Documented by: Sodium Polystyrene Sulfonate (Kayexalate) 15 gm PO ONETIME ONE Stop: 04/22/20 10:01 Last Admin: 04/22/20 11:34 Dose: 15 gm Documented by: - Exam Quality Assessment: Supplemental Oxygen, DVT Prophylaxis General: Alert, Oriented, Cooperative, Moderate Distress Lungs: Decreased Breath Sounds. No: Rales, Rhonchi, Rub, Wheezing Cardiovascular: Regular Rate, Regular Rhythm, No Murmurs GI/Abdominal Exam: Soft, Non-Tender, No Organomegaly, No Distention Extremities: Non-Tender, No Pedal Edema Sepsis Event Note - Evaluation Sepsis Screening Result: No Definite Risk - Focused Exam Vital Signs: Vital Signs Temp Resp BP Pulse Ox 04/30/20 10:00 16 111/73 93 L 04/30/20 08:00 96 F L 20 118/46 L 91 L 04/30/20 05:46 19 114/48 L 86 L 04/30/20 04:00 97.6 F 17 118/52 L 93 L 04/30/20 02:00 16 120/55 L 94 L 04/30/20 00:00 16 124/53 L 95 - Problem List Review Problem List Initiated/Reviewed/Updated: Yes - My Orders Last 24 Hours: My Active Orders 04/30/20 11:06 PROCALCITONIN [CHEM] Stat 04/30/20 11:10 CULTURE BLOOD [BC] Stat CULTURE BLOOD [BC] Stat CULTURE RESPIRATORY + SMEAR [RM] Stat Blood Culture x2 Reflex Set [OM.PC] Urgent 04/30/20 11:14 Levofloxacin/Dextrose 5%-Water [Levaquin in D5W 750 MG/150 ML] 750 mg Premix Bag 1 bag IV ONETIME 04/30/20 11:15 Lactobacillus Rhamnosus GG [Culturelle] 1 cap PO BID 04/30/20 11:18 Intake and Output Strict [RC] ASDIRECTED 04/30/20 11:30 Meropenem [Merrem] 1 gm Sodium Chloride 0.9% [Normal Saline] 100 ml IV Q12H 04/30/20 12:00 Vancomycin 1 gm IV .PHARMACY TO DOSE 05/01/20 05:00 CBC WITH AUTO DIFF [HEME] Timed COMPREHENSIVE METABOLIC PN,CMP [CHEM] Timed 05/01/20 05:11 CRP [C-REACTIVE PROTEIN] [CHEM] AM FERRITIN [CHEM] AM 05/02/20 11:15 Levofloxacin/Dextrose 5%-Water [Levaquin in D5W 500 MG/100 ML] 500 mg Premix Bag 1 bag IV Q48H - Plan Plan:: ASSESSMENT AND PLAN BILATERAL PNEUMONIA SECONDARY TO [id number] BiPAP again intermittently and continues to require high level of supplemental oxygen. Seems to have taken a step backwards in her recovery over the past few days. -She has completed a course of Decadron, convalescent plasma -Saline lock IV -Furosemide IV as needed -Supplemental oxygen as needed -Inhalers as needed PROBABLE BACTERIAL PNEUMONIA-recovery seems to have stalled and she is developed purulent appearing sputum -Blood and sputum cultures pending -Procalcitonin pending -Empiric antibiotic therapy for healthcare associated pneumonia; vancomycin, meropenem, and levofloxacin ACUTE DVT -Enoxaparin 70 mg subcu daily, dose adjusted based on renal function CHRONIC KIDNEY DISEASE STAGE IV-renal function has remained stable through hospitalization -Closely monitor urine output and renal function TYPE 2 DIABETES MELLITUS -Continue usual dose of long-acting insulin -4 times daily glucometers -Moderate dose sliding scale Humalog MAINTENANCE ISSUES -DVT prophylaxis; Lovenox 30 mg subcu daily -GI prophylaxis; not indicated -Figueroa catheter; not indicated -Nutrition; consistent carbohydrate diet -Nicotine dependence; not required CODE STATUS-FULL CODE; I discussed this with the patient when she was seen in the emergency department and she is adamant about aggressive care including intubation if needed ADMISSION STATUS-patient will be admitted to inpatient status, expect at least a 2 night hospital stay for evaluation and management of problems as outlined above. At the time of this admission I do not reasonably expected evaluation and management of this problem will require more than a 96 hour hospital stay. DISPOSITION-anticipate discharge to home after the hospital stay. PRIMARY CARE PROVIDER-
[2020-04-30] MEDS ORDERED: Levofloxacin/Dextrose 5%-Water 750 MG in Premix Bag 1 BAG IV SCH (11:30)
[2020-04-30] MEDS: Lactobacillus Rhamnosus GG (Probiotic) Cap PO SCH ×2 (11:40→21:00)
[2020-04-30] MEDS ORDERED: Vancomycin 1 GM SDV IV SCH (12:00)
[2020-04-30] MEDS: Enoxaparin 80 MG/0.8 ML Syringe SUBCUT SCH (15:29)
[2020-04-30] MEDS: Meropenem 1 GM in Sodium Chloride 0.9% 100 ML IV SCH (15:29)
[2020-04-30] MEDS: Insulin Glargine,Human Rec. Analog 100 Units/ML 3 ML Pen SUBCUT SCH (20:59)
[2020-04-30] MEDS: Gabapentin 100 MG Cap PO SCH (21:00)
[2020-04-30] MEDS: Melatonin 3 MG Tab PO PRN (21:00)
[2020-04-30] MEDS: oxyCODONE 5 MG Tab PO PRN (21:00)
[2020-04-30] MEDS: Benzocaine/Cetylpyridinium/Menthol Lozenge MUCMEM PRN (21:15)
[2020-05-01] MEDS: Meropenem 1 GM in Sodium Chloride 0.9% 100 ML IV SCH (04:01)
[2020-05-01] MEDS: Aspirin 81 MG Tab.Chew PO SCH (08:25)
[2020-05-01] MEDS: Lactobacillus Rhamnosus GG (Probiotic) Cap PO SCH ×2 (08:25→20:19)
[2020-05-01] MEDS: Allopurinol 100 MG Tab PO SCH (08:25)
[2020-05-01] MEDS: Tamoxifen 10 MG Tab PO SCH (08:25)
[2020-05-01] MEDS: Insulin Lispro 100 Unit/ML 3 ML KwikPen SUBCUT SCH ×4 (08:27→20:18)
[2020-05-01] MEDS ORDERED: Furosemide 40 MG/4 ML VIAL IVPUSH ONE (08:40)
--- NOTE | 2020-05-01 14:59 | PCM.PN ---
- General Info Date of Service: 05/01/20 Subjective Update: Ms. Barnett has shown some improvement over the last 24 hours, requiring less supplemental oxygen. Appetite and overall strength have improved. Vital signs have remained stable and she has been afebrile. Functional Status: Reports: Tolerating Diet, Urinating. Denies: Ambulating - Review of Systems General: Reports: Weakness, Fatigue. Denies: Fever, Chills Pulmonary: Reports: Shortness of Breath, Cough, Sputum. Denies: Pleuritic Chest Pain, Hemoptysis, Wheezing Cardiovascular: Reports: Dyspnea on Exertion. Denies: Chest Pain, Palpitations, Orthopnea, PND, Edema, Lightheadedness Gastrointestinal: Reports: No Symptoms - Patient Data Vitals - Most Recent: Last Vital Signs Temp 97.6 F 05/01/20 12:00 Pulse 82 04/29/20 06:00 Resp 18 05/01/20 13:53 BP 104/39 L 05/01/20 13:53 Pulse Ox 91 L 05/01/20 13:53 Weight - Most Recent: 349 lb 3.395 oz I&O - Last 24 Hours: Intake & Output 04/30/20 05/01/20 05/01/20 22:59 06:59 14:59 Intake Total 1480 700 Balance 1480 700 Lab Results Last 24 Hours: Laboratory Results - last 24 hr 05/01/20 05/01/20 05/01/20 Range/Units 05:17 05:17 05:17 WBC 8.6 (4.5-11.0) K/uL RBC 3.54 (3.30-5.50) M/uL Hgb 11.0 L (12.0-15.0) g/dL Hct 34.7 L (36.0-48.0) % MCV 98 (80-98) fL MCH 31 (27-31) pg MCHC 32 (32-36) % Plt Count 139 L (150-400) K/uL Neut % (Auto) 75 H (36-66) % Lymph % (Auto) 13 L (24-44) % [place] % (Auto) 8 H (2-6) % Eos % (Auto) 4 (2-4) % Baso % (Auto) 0 (0-1) % Sodium 132 L (140-148) mmol/L Potassium 4.4 (3.6-5.2) mmol/L Chloride 99 L (100-108) mmol/L Carbon Dioxide 30 (21-32) mmol/L Anion Gap 7.4 (5.0-14.0) mmol/L BUN 36 H (7-18) mg/dL Creatinine 1.3 H (0.6-1.0) mg/dL Est Cr Clr Drug Dosing 27.61 mL/min Estimated GFR (MDRD) 39 L (>60) Glucose 129 H (74-106) mg/dL Calcium 8.5 (8.5-10.1) mg/dL Ferritin 321 (8-388) ng/ml Total Bilirubin 0.5 (0.2-1.0) mg/dL AST 22 (15-37) U/L ALT 19 (12-78) U/L Alkaline Phosphatase 59 (46-116) U/L C-Reactive Protein 3.67 H (0.0-0.3) mg/dL Total Protein 5.1 L (6.4-8.2) g/dL Albumin 1.3 L (3.4-5.0) g/dL Globulin 3.8 H (2.3-3.5) g/dL Albumin/Globulin Ratio 0.3 L (1.2-2.2) Lefty Results Last 24 Hours: Microbiology 04/30/20 11:25 Aerobic Blood Culture - Preliminary Blood - Arm, Left NO GROWTH AFTER 1 DAY Anaerobic Blood Culture - Preliminary NO GROWTH AFTER 1 DAY 04/30/20 11:45 Aerobic Blood Culture - Preliminary Blood - Venous NO GROWTH AFTER 1 DAY Anaerobic Blood Culture - Preliminary NO GROWTH AFTER 1 DAY 04/30/20 11:10 Gram Stain - Final Sputum - Expectorated Respiratory Culture - Final Streptococcus Group A Med Orders - Current: Current Medications Acetaminophen (Tylenol) 650 mg PO Q4H PRN PRN Reason: Pain (Mild 1-3)/fever Last Admin: 04/29/20 05:58 Dose: 650 mg Documented by: Albuterol (Ventolin Hfa) 2 gm INH Q4H PRN PRN Reason: Shortness of Breath Last Admin: 04/21/20 19:08 Dose: 2 puff Documented by: Allopurinol (Zyloprim) 200 mg PO DAILY [facility] Last Admin: 05/01/20 08:25 Dose: 200 mg Documented by: Aspirin (Aspirin) 81 mg PO DAILY [facility] Last Admin: 05/01/20 08:25 Dose: 81 mg Documented by: Benzocaine/Menthol (Cepacol Sore Throat) 1 lozenge MUCMEM ASDIRECTED PRN PRN Reason: SORE THROAT Last Admin: 04/30/20 21:15 Dose: 1 lozenge Documented by: Dextrose (Glutose 15) 15 gm PO ONETIME PRN PRN Reason: Hypoglycemia Dextrose/Water (Dextrose 50% In Water) 50 ml IV ONETIME PRN PRN Reason: Hypoglycemia Enoxaparin Sodium (Lovenox) 70 mg SUBCUT Q24H [facility] Last Admin: 04/30/20 15:29 Dose: 70 mg Documented by: Gabapentin (Neurontin) 100 mg PO BEDTIME [facility] Last Admin: 04/30/20 21:00 Dose: 100 mg Documented by: Ceftriaxone Sodium 1 gm/ (Sodium Chloride) 50 mls @ 100 mls/hr IV Q24H [facility] Insulin Glargine (Lantus Solostar) 24 units SUBCUT BEDTIME [facility] Last Admin: 04/30/20 20:59 Dose: 24 units Documented by: Insulin Human Lispro (Humalog) 0 unit SUBCUT QIDACANDBED [facility]; Protocol Last Admin: 05/01/20 12:01 Dose: 3 units Documented by: Lactobacillus Rhamnosus (Culturelle) 1 cap PO BID [facility] Last Admin: 05/01/20 08:25 Dose: 1 cap Documented by: Lorazepam (Ativan) 0.5 mg IVPUSH Q2H PRN PRN Reason: Anxiety Last Admin: 04/30/20 21:00 Dose: 0.5 mg Documented by: Melatonin (Melatonin) 9 mg PO BEDTIME PRN PRN Reason: Insomnia Last Admin: 04/30/20 21:00 Dose: 9 mg Documented by: Ondansetron HCl (Zofran) 4 mg IV Q4H PRN PRN Reason: Nausea/Vomiting Oxycodone HCl (Oxycodone) 5 mg PO Q4H PRN PRN Reason: Pain Last Admin: 04/30/20 21:00 Dose: 5 mg Documented by: Polyethylene Glycol (Miralax) 17 gm PO DAILY PRN PRN Reason: Constipation Last Admin: 04/21/20 08:06 Dose: 17 gm Documented by: Sodium Chloride (Saline Flush) 10 ml FLUSH ASDIRECTED PRN PRN Reason: Keep Vein Open Last Admin: 04/15/20 09:45 Dose: 10 ml Documented by: Tamoxifen Citrate (Nolvadex) 20 mg PO DAILY [facility] Last Admin: 05/01/20 08:25 Dose: 20 mg Documented by: Discontinued Medications Acetaminophen (Tylenol) 650 mg PO ONCALL ONE Stop: 04/13/20 16:31 Last Admin: 04/13/20 17:02 Dose: 650 mg Documented by: Acetaminophen (Tylenol) 650 mg PO ONCALL ONE Stop: 04/14/20 14:31 Last Admin: 04/14/20 15:56 Dose: 650 mg Documented by: Acetaminophen (Tylenol) 650 mg PO ONCALL ONE Stop: 04/15/20 10:31 Last Admin: 04/15/20 09:44 Dose: 650 mg Documented by: Acetaminophen (Tylenol) 650 mg PO ONCALL ONE Stop: 04/16/20 09:01 Last Admin: 04/16/20 09:28 Dose: 650 mg Documented by: Albuterol (Proventil Neb Soln) 2.5 mg NEB Q4H PRN PRN Reason: Shortness Of Breath/wheezing Last Admin: 04/15/20 20:23 Dose: 2.5 mg Documented by: Benzocaine/Menthol (Cepacol Sore Throat) 1 lozenge MUCMEM ASDIRECTED PRN PRN Reason: SORE THROAT Benzocaine/Menthol (Cepacol Sore Throat) Confirm Administered Dose 1 lozenge .ROUTE .STK-MED ONE Stop: 04/12/20 21:32 Last Admin: 04/12/20 22:57 Dose: Not Given Documented by: Bisacodyl (Dulcolax) 5 mg PO DAILY [facility] Last Admin: 04/21/20 11:06 Dose: 5 mg Documented by: Dexamethasone (Dexamethasone) 6 mg IVPUSH ONETIME ONE Stop: 04/11/20 17:50 Last Admin: 04/11/20 18:08 Dose: 6 mg Documented by: Dexamethasone (Dexamethasone) Confirm Administered Dose 4 mg .ROUTE .STK-MED ONE Stop: 04/11/20 18:01 Last Admin: 04/11/20 18:11 Dose: Not Given Documented by: Dexamethasone (Decadron) 6 mg IVPUSH Q24H [facility] Last Admin: 04/25/20 19:41 Dose: 6 mg Documented by: Diphenhydramine HCl (Benadryl) 25 mg IVPUSH ONCALL ONE Stop: 04/13/20 16:31 Last Admin: 04/13/20 17:02 Dose: 25 mg Documented by: Diphenhydramine HCl (Benadryl) 25 mg IVPUSH ONCALL ONE Stop: 04/14/20 14:31 Last Admin: 04/14/20 15:56 Dose: 25 mg Documented by: Diphenhydramine HCl (Benadryl) 25 mg PO ONCALL ONE Stop: 04/15/20 10:31 Last Admin: 04/15/20 09:46 Dose: 25 mg Documented by: Diphenhydramine HCl (Benadryl) 25 mg PO ONCALL ONE Stop: 04/16/20 09:01 Last Admin: 04/16/20 09:28 Dose: 25 mg Documented by: Enoxaparin Sodium (Lovenox) 30 mg SUBCUT DAILY [facility] Last Admin: 04/11/20 21:39 Dose: 30 mg Documented by: Enoxaparin Sodium (Lovenox) 30 mg SUBCUT BEDTIME [facility] Last Admin: 04/22/20 20:11 Dose: 30 mg Documented by: Furosemide (Lasix) 40 mg IVPUSH NOW ONE Stop: 04/16/20 12:01 Last Admin: 04/16/20 12:26 Dose: 40 mg Documented by: Furosemide (Lasix) 40 mg IV ONETIME ONE Stop: 04/22/20 12:01 Last Admin: 04/22/20 12:01 Dose: 40 mg Documented by: Furosemide (Lasix) 40 mg IVPUSH ONETIME ONE Stop: 04/22/20 21:16 Last Admin: 04/22/20 21:46 Dose: 40 mg Documented by: Furosemide (Lasix) 40 mg IVPUSH ONETIME ONE Stop: 04/24/20 18:17 Last Admin: 04/24/20 18:39 Dose: 40 mg Documented by: Furosemide (Lasix) 40 mg IVPUSH NOW ONE Stop: 04/28/20 17:16 Last Admin: 04/28/20 18:42 Dose: 40 mg Documented by: Furosemide (Lasix) 40 mg IVPUSH NOW ONE Stop: 04/29/20 08:31 Last Admin: 04/29/20 09:28 Dose: 40 mg Documented by: Furosemide (Lasix) 40 mg IVPUSH NOW ONE Stop: 05/01/20 08:41 Last Admin: 05/01/20 08:37 Dose: 40 mg Documented by: Sodium Chloride (Normal Saline) 1,000 mls @ 1,000 mls/hr IV ASDIRECTED [facility] Last Admin: 04/11/20 17:14 Dose: 1,000 mls/hr Documented by: Sodium Chloride (Normal Saline) 1,000 mls @ 50 mls/hr IV ASDIRECTED [facility] Last Admin: 04/11/20 22:32 Dose: 50 mls/hr Documented by: Sodium Chloride (Normal Saline) 250 mls @ 20 mls/hr IV ASDIRECTED [facility] Last Admin: 04/13/20 17:55 Dose: 20 mls/hr Documented by: Remdesivir 200 mg/ Sodium (Chloride) 250 mls @ 250 mls/hr IV ONETIME ONE Stop: 04/22/20 14:59 Last Admin: 04/22/20 14:23 Dose: 250 mls/hr Documented by: Remdesivir 100 mg/ Sodium (Chloride) 100 mls @ 100 mls/hr IV Q24H [facility] Stop: 04/26/20 14:59 Last Admin: 04/24/20 13:38 Dose: 100 mls/hr Documented by: Levofloxacin/Dextrose 750 mg/ (Premix) 150 mls @ 100 mls/hr IV Q48H [facility] Last Admin: 04/30/20 11:40 Dose: 100 mls/hr Documented by: Vancomycin HCl 1 gm/ Sodium (Chloride) 250 mls @ 166.667 mls/hr IV Q24H [facility] Last Admin: 05/01/20 13:26 Dose: 166.667 mls/hr Documented by: Meropenem 1 gm/ Sodium (Chloride) 100 mls @ 200 mls/hr IV Q12H [facility] Last Admin: 05/01/20 04:01 Dose: 200 mls/hr Documented by: Insulin Glargine (Lantus Solostar) 26 units SUBCUT BEDTIME [facility] Last Admin: 04/11/20 23:35 Dose: Not Given Documented by: Insulin Glargine (Lantus Solostar) 24 units SUBCUT BEDTIME [facility] Last Admin: 04/11/20 22:33 Dose: 24 units Documented by: Insulin Human Lispro (Humalog) 0 unit SUBCUT QIDACANDBED [facility]; Protocol Last Admin: 04/20/20 12:03 Dose: 6 units Documented by: Magnesium Hydroxide (Milk Of Magnesia) 30 ml PO DAILY [facility] Last Admin: 04/21/20 11:06 Dose: 30 ml Documented by: Senna/Docusate Sodium (Senna Plus) 1 tab PO BID [facility] Last Admin: 04/21/20 11:06 Dose: 1 tab Documented by: Sodium Polystyrene Sulfonate (Kayexalate) 15 gm PO ONETIME ONE Stop: 04/22/20 10:01 Last Admin: 04/22/20 11:34 Dose: 15 gm Documented by: Vancomycin HCl (Vancomycin) 1 gm IV .PHARMACY TO DOSE [facility] Stop: 04/30/20 12:30 - Exam Quality Assessment: Supplemental Oxygen, DVT Prophylaxis General: Alert, Oriented, Cooperative, Moderate Distress Lungs: Decreased Breath Sounds, Rales. No: Crackles, Rhonchi, Wheezing Cardiovascular: Regular Rate, Regular Rhythm, No Murmurs GI/Abdominal Exam: Soft, Non-Tender, No Organomegaly, No Distention Extremities: Non-Tender, No Pedal Edema Skin: Warm, Dry Sepsis Event Note - Evaluation Sepsis Screening Result: No Definite Risk - Focused Exam Vital Signs: Vital Signs Temp Resp BP Pulse Ox 05/01/20 13:53 18 104/39 L 91 L 05/01/20 12:00 97.6 F 18 101/41 L 95 05/01/20 10:00 20 104/39 L 90 L 05/01/20 08:00 96.8 F L 12 114/46 L 89 L 05/01/20 06:00 12 110/41 L 88 L 05/01/20 03:50 17 112/52 L 91 L - Problem List Review Problem List Initiated/Reviewed/Updated: Yes - My Orders Last 24 Hours: My Active Orders 05/01/20 15:00 cefTRIAXone [Rocephin] 1 gm Sodium Chloride 0.9% [Normal Saline] 50 ml IV Q24H 05/02/20 05:00 BASIC METABOLIC PANEL,BMP [CHEM] Timed - Plan Plan:: ASSESSMENT AND PLAN BILATERAL PNEUMONIA SECONDARY TO COVID-19 -She has completed a course of Decadron, convalescent plasma -Saline lock IV -Furosemide IV as needed -Supplemental oxygen as needed -Inhalers as needed PROBABLE BACTERIAL PNEUMONIA-group A streptococcus is growing from sputum, blood cultures negative so far. She has improved over the last 24 hours with initiation of antibiotic therapy -Blood and sputum cultures pending -Discontinue vancomycin, meropenem, levofloxacin -Ceftriaxone 1 g IV every 24 hours ACUTE DVT -Enoxaparin 70 mg subcu daily, dose adjusted based on renal function CHRONIC KIDNEY DISEASE STAGE IV-renal function has remained stable through hospitalization -Closely monitor urine output and renal function TYPE 2 DIABETES MELLITUS -Continue usual dose of long-acting insulin -4 times daily glucometers -Moderate dose sliding scale Humalog MAINTENANCE ISSUES -DVT prophylaxis; Lovenox 30 mg subcu daily -GI prophylaxis; not indicated -Figueroa catheter; not indicated -Nutrition; consistent carbohydrate diet -Nicotine dependence; not required CODE STATUS-FULL CODE; I discussed this with the patient when she was seen in the emergency department and she is adamant about aggressive care including intubation if needed ADMISSION STATUS-patient will be admitted to inpatient status, expect at least a 2 night hospital stay for evaluation and management of problems as outlined above. At the time of this admission I do not reasonably expected evaluation and management of this problem will require more than a 96 hour hospital stay. DISPOSITION-anticipate discharge to home after the hospital stay. PRIMARY CARE PROVIDER-
[2020-05-01] MEDS: cefTRIAXone 1 GM in Sodium Chloride 0.9% 50 ML IV SCH (15:36)
[2020-05-01] MEDS: Enoxaparin 80 MG/0.8 ML Syringe SUBCUT SCH (16:02)
[2020-05-01] MEDS: Insulin Glargine,Human Rec. Analog 100 Units/ML 3 ML Pen SUBCUT SCH (20:18)
[2020-05-01] MEDS: Melatonin 3 MG Tab PO PRN (20:19)
[2020-05-01] MEDS: Gabapentin 100 MG Cap PO SCH (20:19)
[2020-05-01] MEDS: oxyCODONE 5 MG Tab PO PRN (20:19)
[2020-05-02] MEDS: Insulin Lispro 100 Unit/ML 3 ML KwikPen SUBCUT SCH ×3 (08:24→17:46)
[2020-05-02] MEDS: Aspirin 81 MG Tab.Chew PO SCH (08:26)
[2020-05-02] MEDS: Lactobacillus Rhamnosus GG (Probiotic) Cap PO SCH ×2 (08:26→21:44)
[2020-05-02] MEDS: Tamoxifen 10 MG Tab PO SCH (08:26)
[2020-05-02] MEDS: Allopurinol 100 MG Tab PO SCH (08:26)
--- NOTE | 2020-05-02 10:26 | PCM.PN ---
- General Info Date of Service: 05/02/20 Subjective Update: No acute events overnight. Patient continues to require about 15 L of supplemental oxygen to maintain saturations in the low 90s. She says that she feels a little less short of breath today. Cough is minimal. No complaints of myalgias or arthralgias. No nausea or abdominal pain. She feels weak but overall says that she feels okay. She has not had any fevers. Seems to be tolerating antibiotics so far and there are no new positive culture results. Functional Status: Reports: Pain Controlled, Tolerating Diet - Review of Systems General: Reports: Weakness Pulmonary: Reports: Shortness of Breath Cardiovascular: Denies: Chest Pain - Patient Data Vitals - Most Recent: Last Vital Signs Temp 36.4 C 05/02/20 08:00 Pulse 86 05/02/20 08:00 Resp 14 05/02/20 08:00 BP 116/48 L 05/02/20 08:00 Pulse Ox 90 L 05/02/20 06:00 Weight - Most Recent: 158.4 kg I&O - Last 24 Hours: Intake & Output 05/01/20 05/02/20 05/02/20 22:59 06:59 14:59 Intake Total 660 Balance 660 Lab Results Last 24 Hours: Laboratory Results - last 24 hr 05/02/20 Range/Units 05:15 Sodium 135 L (140-148) mmol/L Potassium 4.3 (3.6-5.2) mmol/L Chloride 99 L (100-108) mmol/L Carbon Dioxide 32 (21-32) mmol/L Anion Gap 8.3 (5.0-14.0) mmol/L BUN 35 H (7-18) mg/dL Creatinine 1.2 H (0.6-1.0) mg/dL Est Cr Clr Drug Dosing 29.91 mL/min Estimated GFR (MDRD) 42 L (>60) Glucose 63 L (74-106) mg/dL Calcium 8.6 (8.5-10.1) mg/dL Lefty Results Last 24 Hours: Microbiology 04/30/20 11:25 Aerobic Blood Culture - Preliminary Blood - Arm, Left NO GROWTH AFTER 1 DAY Anaerobic Blood Culture - Preliminary NO GROWTH AFTER 1 DAY 04/30/20 11:45 Aerobic Blood Culture - Preliminary Blood - Venous NO GROWTH AFTER 1 DAY Anaerobic Blood Culture - Preliminary NO GROWTH AFTER 1 DAY 04/30/20 11:10 Gram Stain - Final Sputum - Expectorated Respiratory Culture - Final Streptococcus Group A Med Orders - Current: Current Medications Acetaminophen (Tylenol) 650 mg PO Q4H PRN PRN Reason: Pain (Mild 1-3)/fever Last Admin: 04/29/20 05:58 Dose: 650 mg Documented by: Albuterol (Ventolin Hfa) 2 gm INH Q4H PRN PRN Reason: Shortness of Breath Last Admin: 04/21/20 19:08 Dose: 2 puff Documented by: Allopurinol (Zyloprim) 200 mg PO DAILY [facility] Last Admin: 05/02/20 08:26 Dose: 200 mg Documented by: Aspirin (Aspirin) 81 mg PO DAILY [facility] Last Admin: 05/02/20 08:26 Dose: 81 mg Documented by: Benzocaine/Menthol (Cepacol Sore Throat) 1 lozenge MUCMEM ASDIRECTED PRN PRN Reason: SORE THROAT Last Admin: 04/30/20 21:15 Dose: 1 lozenge Documented by: Dextrose (Glutose 15) 15 gm PO ONETIME PRN PRN Reason: Hypoglycemia Dextrose/Water (Dextrose 50% In Water) 50 ml IV ONETIME PRN PRN Reason: Hypoglycemia Enoxaparin Sodium (Lovenox) 70 mg SUBCUT Q24H [facility] Last Admin: 05/01/20 16:02 Dose: 70 mg Documented by: Gabapentin (Neurontin) 100 mg PO BEDTIME [facility] Last Admin: 05/01/20 20:19 Dose: 100 mg Documented by: Ceftriaxone Sodium 1 gm/ (Sodium Chloride) 50 mls @ 100 mls/hr IV Q24H [facility] Last Admin: 05/01/20 15:36 Dose: 100 mls/hr Documented by: Insulin Glargine (Lantus Solostar) 24 units SUBCUT BEDTIME [facility] Last Admin: 05/01/20 20:18 Dose: 24 units Documented by: Lactobacillus Rhamnosus (Culturelle) 1 cap PO BID [facility] Last Admin: 05/02/20 08:26 Dose: 1 cap Documented by: Lorazepam (Ativan) 0.5 mg IVPUSH Q2H PRN PRN Reason: Anxiety Last Admin: 04/30/20 21:00 Dose: 0.5 mg Documented by: Melatonin (Melatonin) 9 mg PO BEDTIME PRN PRN Reason: Insomnia Last Admin: 05/01/20 20:19 Dose: 9 mg Documented by: Ondansetron HCl (Zofran) 4 mg IV Q4H PRN PRN Reason: Nausea/Vomiting Oxycodone HCl (Oxycodone) 5 mg PO Q4H PRN PRN Reason: Pain Last Admin: 05/01/20 20:19 Dose: 5 mg Documented by: Polyethylene Glycol (Miralax) 17 gm PO DAILY PRN PRN Reason: Constipation Last Admin: 04/21/20 08:06 Dose: 17 gm Documented by: Sodium Chloride (Saline Flush) 10 ml FLUSH ASDIRECTED PRN PRN Reason: Keep Vein Open Last Admin: 04/15/20 09:45 Dose: 10 ml Documented by: Tamoxifen Citrate (Nolvadex) 20 mg PO DAILY [facility] Last Admin: 05/02/20 08:26 Dose: 20 mg Documented by: Discontinued Medications Acetaminophen (Tylenol) 650 mg PO ONCALL ONE Stop: 04/13/20 16:31 Last Admin: 04/13/20 17:02 Dose: 650 mg Documented by: Acetaminophen (Tylenol) 650 mg PO ONCALL ONE Stop: 04/14/20 14:31 Last Admin: 04/14/20 15:56 Dose: 650 mg Documented by: Acetaminophen (Tylenol) 650 mg PO ONCALL ONE Stop: 04/15/20 10:31 Last Admin: 04/15/20 09:44 Dose: 650 mg Documented by: Acetaminophen (Tylenol) 650 mg PO ONCALL ONE Stop: 04/16/20 09:01 Last Admin: 04/16/20 09:28 Dose: 650 mg Documented by: Albuterol (Proventil Neb Soln) 2.5 mg NEB Q4H PRN PRN Reason: Shortness Of Breath/wheezing Last Admin: 04/15/20 20:23 Dose: 2.5 mg Documented by: Benzocaine/Menthol (Cepacol Sore Throat) 1 lozenge MUCMEM ASDIRECTED PRN PRN Reason: SORE THROAT Benzocaine/Menthol (Cepacol Sore Throat) Confirm Administered Dose 1 lozenge .ROUTE .STK-MED ONE Stop: 04/12/20 21:32 Last Admin: 04/12/20 22:57 Dose: Not Given Documented by: Bisacodyl (Dulcolax) 5 mg PO DAILY [facility] Last Admin: 04/21/20 11:06 Dose: 5 mg Documented by: Dexamethasone (Dexamethasone) 6 mg IVPUSH ONETIME ONE Stop: 04/11/20 17:50 Last Admin: 04/11/20 18:08 Dose: 6 mg Documented by: Dexamethasone (Dexamethasone) Confirm Administered Dose 4 mg .ROUTE .STK-MED ONE Stop: 04/11/20 18:01 Last Admin: 04/11/20 18:11 Dose: Not Given Documented by: Dexamethasone (Decadron) 6 mg IVPUSH Q24H [facility] Last Admin: 04/25/20 19:41 Dose: 6 mg Documented by: Diphenhydramine HCl (Benadryl) 25 mg IVPUSH ONCALL ONE Stop: 04/13/20 16:31 Last Admin: 04/13/20 17:02 Dose: 25 mg Documented by: Diphenhydramine HCl (Benadryl) 25 mg IVPUSH ONCALL ONE Stop: 04/14/20 14:31 Last Admin: 04/14/20 15:56 Dose: 25 mg Documented by: Diphenhydramine HCl (Benadryl) 25 mg PO ONCALL ONE Stop: 04/15/20 10:31 Last Admin: 04/15/20 09:46 Dose: 25 mg Documented by: Diphenhydramine HCl (Benadryl) 25 mg PO ONCALL ONE Stop: 04/16/20 09:01 Last Admin: 04/16/20 09:28 Dose: 25 mg Documented by: Enoxaparin Sodium (Lovenox) 30 mg SUBCUT DAILY [facility] Last Admin: 04/11/20 21:39 Dose: 30 mg Documented by: Enoxaparin Sodium (Lovenox) 30 mg SUBCUT BEDTIME [facility] Last Admin: 04/22/20 20:11 Dose: 30 mg Documented by: Furosemide (Lasix) 40 mg IVPUSH NOW ONE Stop: 04/16/20 12:01 Last Admin: 04/16/20 12:26 Dose: 40 mg Documented by: Furosemide (Lasix) 40 mg IV ONETIME ONE Stop: 04/22/20 12:01 Last Admin: 04/22/20 12:01 Dose: 40 mg Documented by: Furosemide (Lasix) 40 mg IVPUSH ONETIME ONE Stop: 04/22/20 21:16 Last Admin: 04/22/20 21:46 Dose: 40 mg Documented by: Furosemide (Lasix) 40 mg IVPUSH ONETIME ONE Stop: 04/24/20 18:17 Last Admin: 04/24/20 18:39 Dose: 40 mg Documented by: Furosemide (Lasix) 40 mg IVPUSH NOW ONE Stop: 04/28/20 17:16 Last Admin: 04/28/20 18:42 Dose: 40 mg Documented by: Furosemide (Lasix) 40 mg IVPUSH NOW ONE Stop: 04/29/20 08:31 Last Admin: 04/29/20 09:28 Dose: 40 mg Documented by: Furosemide (Lasix) 40 mg IVPUSH NOW ONE Stop: 05/01/20 08:41 Last Admin: 05/01/20 08:37 Dose: 40 mg Documented by: Sodium Chloride (Normal Saline) 1,000 mls @ 1,000 mls/hr IV ASDIRECTED [facility] Last Admin: 04/11/20 17:14 Dose: 1,000 mls/hr Documented by: Sodium Chloride (Normal Saline) 1,000 mls @ 50 mls/hr IV ASDIRECTED [facility] Last Admin: 04/11/20 22:32 Dose: 50 mls/hr Documented by: Sodium Chloride (Normal Saline) 250 mls @ 20 mls/hr IV ASDIRECTED [facility] Last Admin: 04/13/20 17:55 Dose: 20 mls/hr Documented by: Remdesivir 200 mg/ Sodium (Chloride) 250 mls @ 250 mls/hr IV ONETIME ONE Stop: 04/22/20 14:59 Last Admin: 04/22/20 14:23 Dose: 250 mls/hr Documented by: Remdesivir 100 mg/ Sodium (Chloride) 100 mls @ 100 mls/hr IV Q24H [facility] Stop: 04/26/20 14:59 Last Admin: 04/24/20 13:38 Dose: 100 mls/hr Documented by: Levofloxacin/Dextrose 750 mg/ (Premix) 150 mls @ 100 mls/hr IV Q48H [facility] Last Admin: 04/30/20 11:40 Dose: 100 mls/hr Documented by: Vancomycin HCl 1 gm/ Sodium (Chloride) 250 mls @ 166.667 mls/hr IV Q24H [facility] Last Admin: 05/01/20 13:26 Dose: 166.667 mls/hr Documented by: Meropenem 1 gm/ Sodium (Chloride) 100 mls @ 200 mls/hr IV Q12H [facility] Last Admin: 05/01/20 04:01 Dose: 200 mls/hr Documented by: Insulin Glargine (Lantus Solostar) 26 units SUBCUT BEDTIME [facility] Last Admin: 04/11/20 23:35 Dose: Not Given Documented by: Insulin Glargine (Lantus Solostar) 24 units SUBCUT BEDTIME [facility] Last Admin: 04/11/20 22:33 Dose: 24 units Documented by: Insulin Human Lispro (Humalog) 0 unit SUBCUT QIDACANDBED [facility]; Protocol Last Admin: 04/20/20 12:03 Dose: 6 units Documented by: Insulin Human Lispro (Humalog) 0 unit SUBCUT QIDACANDBED [facility]; Protocol Last Admin: 05/02/20 08:24 Dose: Not Given Documented by: Magnesium Hydroxide (Milk Of Magnesia) 30 ml PO DAILY [facility] Last Admin: 04/21/20 11:06 Dose: 30 ml Documented by: Senna/Docusate Sodium (Senna Plus) 1 tab PO BID [facility] Last Admin: 04/21/20 11:06 Dose: 1 tab Documented by: Sodium Polystyrene Sulfonate (Kayexalate) 15 gm PO ONETIME ONE Stop: 04/22/20 10:01 Last Admin: 04/22/20 11:34 Dose: 15 gm Documented by: Vancomycin HCl (Vancomycin) 1 gm IV .PHARMACY TO DOSE [facility] Stop: 04/30/20 12:30 - Exam Quality Assessment: Supplemental Oxygen General: Alert, Oriented, Cooperative, No Acute Distress Lungs: Normal Respiratory Effort, Crackles (both lower and mid lung zones) Cardiovascular: Regular Rhythm, Tachycardia GI/Abdominal Exam: Normal Bowel Sounds, Soft, No Distention Extremities: No Pedal Edema. No: Increased Warmth Skin: Warm, Dry Psy/Mental Status: Alert, Normal Affect Sepsis Event Note - Evaluation Sepsis Screening Result: No Definite Risk - Focused Exam Vital Signs: Vital Signs Temp Pulse Resp BP Pulse Ox 05/02/20 08:00 36.4 C 86 14 116/48 L 05/02/20 06:00 19 104/39 L 90 L 05/02/20 04:00 20 118/43 L 88 L 05/02/20 02:00 36.4 C 17 107/47 L 95 05/02/20 00:00 18 112/43 L 90 L - Problem List Review Problem List Initiated/Reviewed/Updated: Yes - My Orders Last 24 Hours: My Active Orders 05/02/20 10:25 PT Evaluation and Treatment [CONS] Routine 05/03/20 05:00 C-REACTIVE PROTEIN [CHEM] Timed CBC W/O DIFF,HEMOGRAM [HEME] Timed (1) COMPREHENSIVE METABOLIC PN,CMP [CHEM] Timed D-DIMER QUANTITATIVE [COAG] Timed - Plan Plan:: ASSESSMENT AND PLAN BILATERAL PNEUMONIA SECONDARY TO [id number] has completed a course of Decadron, convalescent plasma. Volume status appears appropriate. Still on a large quantity of supplemental oxygen. Stable but not really getting better and not getting worse. Condition discussed with her son today. -Saline lock IV -Furosemide IV as needed -Supplemental oxygen as needed, wean as able -Inhalers as needed PROBABLE BACTERIAL PNEUMONIA-group A streptococcus is growing from sputum, blood cultures negative so far. She has remained stable but not shown significant improvement. -Follow-up cultures -Ceftriaxone 1 g IV every 24 hours ACUTE DVT, left popliteal vein-noted with lower extremity ultrasound. -Enoxaparin 70 mg subcu daily, dose adjusted based on renal function CHRONIC KIDNEY DISEASE STAGE IV-renal function has remained stable through hospitalization -Closely monitor urine output and renal function TYPE 2 DIABETES MELLITUS-Sugar little on the low side this morning. -Continue usual dose of long-acting insulin -4 times daily glucometers -Discontinue sliding scale MAINTENANCE ISSUES -DVT prophylaxis; enoxaparin -GI prophylaxis; not indicated -Figueroa catheter; not indicated -Nutrition; consistent carbohydrate diet DISPOSITION-anticipate discharge to home with home care versus [facility] after the hospital stay. PRIMARY CARE PROVIDER-
[2020-05-02] MEDS ORDERED: Levofloxacin/Dextrose 5%-Water 500 MG in Premix Bag 1 BAG IV SCH (11:15)
[2020-05-02] MEDS: Enoxaparin 80 MG/0.8 ML Syringe SUBCUT SCH (16:45)
[2020-05-02] MEDS: cefTRIAXone 1 GM in Sodium Chloride 0.9% 50 ML IV SCH (16:50)
[2020-05-02] MEDS: oxyCODONE 5 MG Tab PO PRN (17:05)
[2020-05-02] MEDS: Insulin Glargine,Human Rec. Analog 100 Units/ML 3 ML Pen SUBCUT SCH (21:05)
[2020-05-02] MEDS: Gabapentin 100 MG Cap PO SCH (21:44)
[2020-05-03] MEDS: Aspirin 81 MG Tab.Chew PO SCH (08:31)
[2020-05-03] MEDS: Tamoxifen 10 MG Tab PO SCH (08:31)
[2020-05-03] MEDS: Lactobacillus Rhamnosus GG (Probiotic) Cap PO SCH ×3 (08:31→21:43)
[2020-05-03] MEDS: Allopurinol 100 MG Tab PO SCH (08:32)
--- NOTE | 2020-05-03 10:03 | PCM.PN ---
- General Info Date of Service: 05/03/20 Subjective Update: No acute events overnight. No fevers. She feels a little less short of breath today. Supplemental oxygen requirement seems to have decreased some from yesterday and she is currently on a combination of mask and nasal cannula at about 12 L/min. Appetite is a little better. She was able to get from the bed to the chair. No complaints of chest pain or abdominal pain. She reports that she is feeling better today. Functional Status: Reports: Pain Controlled, Tolerating Diet - Review of Systems General: Reports: Weakness. Denies: Fever Pulmonary: Reports: Shortness of Breath - Patient Data Vitals - Most Recent: Last Vital Signs Temp 35.5 C L 05/03/20 08:00 Pulse 80 05/03/20 08:00 Resp 12 05/03/20 08:00 BP 137/59 L 05/03/20 08:00 Pulse Ox 94 L 05/03/20 08:00 Weight - Most Recent: 158.4 kg I&O - Last 24 Hours: Intake & Output 05/02/20 05/03/20 05/03/20 22:59 06:59 14:59 Intake Total 120 100 275 Balance 120 100 275 Lab Results Last 24 Hours: Laboratory Results - last 24 hr 05/03/20 05/03/20 05/03/20 Range/Units 05:01 05:01 05:01 WBC 8.8 (4.5-11.0) K/uL RBC 3.41 (3.30-5.50) M/uL Hgb 10.5 L (12.0-15.0) g/dL Hct 34.1 L (36.0-48.0) % MCV 100 H (80-98) fL MCH 31 (27-31) pg MCHC 31 L (32-36) % Plt Count 130 L (150-400) K/uL D-Dimer, Quantitative 1790.60 H (0.0-500.0) ng/mL Sodium 136 L (140-148) mmol/L Potassium 4.8 (3.6-5.2) mmol/L Chloride 101 (100-108) mmol/L Carbon Dioxide 33 H (21-32) mmol/L Anion Gap 6.8 (5.0-14.0) mmol/L BUN 33 H (7-18) mg/dL Creatinine 1.2 H (0.6-1.0) mg/dL Est Cr Clr Drug Dosing 29.91 mL/min Estimated GFR (MDRD) 42 L (>60) Glucose 148 H (74-106) mg/dL Calcium 8.8 (8.5-10.1) mg/dL Total Bilirubin 0.3 (0.2-1.0) mg/dL AST 26 (15-37) U/L ALT 18 (12-78) U/L Alkaline Phosphatase 59 (46-116) U/L C-Reactive Protein 5.36 H (0.0-0.3) mg/dL Total Protein 5.3 L (6.4-8.2) g/dL Albumin 1.3 L (3.4-5.0) g/dL Globulin 4.0 H (2.3-3.5) g/dL Albumin/Globulin Ratio 0.3 L (1.2-2.2) Lefty Results Last 24 Hours: Microbiology 04/30/20 11:25 Aerobic Blood Culture - Preliminary Blood - Arm, Left NO GROWTH AFTER 2 DAYS Anaerobic Blood Culture - Preliminary NO GROWTH AFTER 2 DAYS 04/30/20 11:45 Aerobic Blood Culture - Preliminary Blood - Venous NO GROWTH AFTER 2 DAYS Anaerobic Blood Culture - Preliminary NO GROWTH AFTER 2 DAYS Med Orders - Current: Current Medications Acetaminophen (Tylenol) 650 mg PO Q4H PRN PRN Reason: Pain (Mild 1-3)/fever Last Admin: 04/29/20 05:58 Dose: 650 mg Documented by: Albuterol (Ventolin Hfa) 2 gm INH Q4H PRN PRN Reason: Shortness of Breath Last Admin: 04/21/20 19:08 Dose: 2 puff Documented by: Allopurinol (Zyloprim) 200 mg PO DAILY [facility] Last Admin: 05/03/20 08:32 Dose: 200 mg Documented by: Aspirin (Aspirin) 81 mg PO DAILY [facility] Last Admin: 05/03/20 08:31 Dose: 81 mg Documented by: Benzocaine/Menthol (Cepacol Sore Throat) 1 lozenge MUCMEM ASDIRECTED PRN PRN Reason: SORE THROAT Last Admin: 04/30/20 21:15 Dose: 1 lozenge Documented by: Dextrose (Glutose 15) 15 gm PO ONETIME PRN PRN Reason: Hypoglycemia Dextrose/Water (Dextrose 50% In Water) 50 ml IV ONETIME PRN PRN Reason: Hypoglycemia Enoxaparin Sodium (Lovenox) 70 mg SUBCUT Q24H [facility] Last Admin: 05/02/20 16:45 Dose: 70 mg Documented by: Gabapentin (Neurontin) 100 mg PO BEDTIME [facility] Last Admin: 05/02/20 21:44 Dose: 100 mg Documented by: Ceftriaxone Sodium 1 gm/ (Sodium Chloride) 50 mls @ 100 mls/hr IV Q24H [facility] Last Admin: 05/02/20 16:50 Dose: 100 mls/hr Documented by: Insulin Glargine (Lantus Solostar) 24 units SUBCUT BEDTIME [facility] Last Admin: 05/02/20 21:05 Dose: 24 units Documented by: Lactobacillus Rhamnosus (Culturelle) 1 cap PO BID [facility] Last Admin: 05/03/20 08:31 Dose: 1 cap Documented by: Lorazepam (Ativan) 0.5 mg IVPUSH Q2H PRN PRN Reason: Anxiety Last Admin: 04/30/20 21:00 Dose: 0.5 mg Documented by: Melatonin (Melatonin) 9 mg PO BEDTIME PRN PRN Reason: Insomnia Last Admin: 05/01/20 20:19 Dose: 9 mg Documented by: Ondansetron HCl (Zofran) 4 mg IV Q4H PRN PRN Reason: Nausea/Vomiting Oxycodone HCl (Oxycodone) 5 mg PO Q4H PRN PRN Reason: Pain Last Admin: 05/02/20 17:05 Dose: 5 mg Documented by: Polyethylene Glycol (Miralax) 17 gm PO DAILY PRN PRN Reason: Constipation Last Admin: 04/21/20 08:06 Dose: 17 gm Documented by: Sodium Chloride (Saline Flush) 10 ml FLUSH ASDIRECTED PRN PRN Reason: Keep Vein Open Last Admin: 04/15/20 09:45 Dose: 10 ml Documented by: Sodium Chloride ([place] Nasal [place]) 0 ml ABRAHNA Q4H [facility] Tamoxifen Citrate (Nolvadex) 20 mg PO DAILY [facility] Last Admin: 05/03/20 08:31 Dose: 20 mg Documented by: Discontinued Medications Acetaminophen (Tylenol) 650 mg PO ONCALL ONE Stop: 04/13/20 16:31 Last Admin: 04/13/20 17:02 Dose: 650 mg Documented by: Acetaminophen (Tylenol) 650 mg PO ONCALL ONE Stop: 04/14/20 14:31 Last Admin: 04/14/20 15:56 Dose: 650 mg Documented by: Acetaminophen (Tylenol) 650 mg PO ONCALL ONE Stop: 04/15/20 10:31 Last Admin: 04/15/20 09:44 Dose: 650 mg Documented by: Acetaminophen (Tylenol) 650 mg PO ONCALL ONE Stop: 04/16/20 09:01 Last Admin: 04/16/20 09:28 Dose: 650 mg Documented by: Albuterol (Proventil Neb Soln) 2.5 mg NEB Q4H PRN PRN Reason: Shortness Of Breath/wheezing Last Admin: 04/15/20 20:23 Dose: 2.5 mg Documented by: Benzocaine/Menthol (Cepacol Sore Throat) 1 lozenge MUCMEM ASDIRECTED PRN PRN Reason: SORE THROAT Benzocaine/Menthol (Cepacol Sore Throat) Confirm Administered Dose 1 lozenge .ROUTE .STK-MED ONE Stop: 04/12/20 21:32 Last Admin: 04/12/20 22:57 Dose: Not Given Documented by: Bisacodyl (Dulcolax) 5 mg PO DAILY [facility] Last Admin: 04/21/20 11:06 Dose: 5 mg Documented by: Dexamethasone (Dexamethasone) 6 mg IVPUSH ONETIME ONE Stop: 04/11/20 17:50 Last Admin: 04/11/20 18:08 Dose: 6 mg Documented by: Dexamethasone (Dexamethasone) Confirm Administered Dose 4 mg .ROUTE .STK-MED ONE Stop: 04/11/20 18:01 Last Admin: 04/11/20 18:11 Dose: Not Given Documented by: Dexamethasone (Decadron) 6 mg IVPUSH Q24H [facility] Last Admin: 04/25/20 19:41 Dose: 6 mg Documented by: Diphenhydramine HCl (Benadryl) 25 mg IVPUSH ONCALL ONE Stop: 04/13/20 16:31 Last Admin: 04/13/20 17:02 Dose: 25 mg Documented by: Diphenhydramine HCl (Benadryl) 25 mg IVPUSH ONCALL ONE Stop: 04/14/20 14:31 Last Admin: 04/14/20 15:56 Dose: 25 mg Documented by: Diphenhydramine HCl (Benadryl) 25 mg PO ONCALL ONE Stop: 04/15/20 10:31 Last Admin: 04/15/20 09:46 Dose: 25 mg Documented by: Diphenhydramine HCl (Benadryl) 25 mg PO ONCALL ONE Stop: 04/16/20 09:01 Last Admin: 04/16/20 09:28 Dose: 25 mg Documented by: Enoxaparin Sodium (Lovenox) 30 mg SUBCUT DAILY [facility] Last Admin: 04/11/20 21:39 Dose: 30 mg Documented by: Enoxaparin Sodium (Lovenox) 30 mg SUBCUT BEDTIME [facility] Last Admin: 04/22/20 20:11 Dose: 30 mg Documented by: Furosemide (Lasix) 40 mg IVPUSH NOW ONE Stop: 04/16/20 12:01 Last Admin: 04/16/20 12:26 Dose: 40 mg Documented by: Furosemide (Lasix) 40 mg IV ONETIME ONE Stop: 04/22/20 12:01 Last Admin: 04/22/20 12:01 Dose: 40 mg Documented by: Furosemide (Lasix) 40 mg IVPUSH ONETIME ONE Stop: 04/22/20 21:16 Last Admin: 04/22/20 21:46 Dose: 40 mg Documented by: Furosemide (Lasix) 40 mg IVPUSH ONETIME ONE Stop: 04/24/20 18:17 Last Admin: 04/24/20 18:39 Dose: 40 mg Documented by: Furosemide (Lasix) 40 mg IVPUSH NOW ONE Stop: 04/28/20 17:16 Last Admin: 04/28/20 18:42 Dose: 40 mg Documented by: Furosemide (Lasix) 40 mg IVPUSH NOW ONE Stop: 04/29/20 08:31 Last Admin: 04/29/20 09:28 Dose: 40 mg Documented by: Furosemide (Lasix) 40 mg IVPUSH NOW ONE Stop: 05/01/20 08:41 Last Admin: 05/01/20 08:37 Dose: 40 mg Documented by: Sodium Chloride (Normal Saline) 1,000 mls @ 1,000 mls/hr IV ASDIRECTED [facility] Last Admin: 04/11/20 17:14 Dose: 1,000 mls/hr Documented by: Sodium Chloride (Normal Saline) 1,000 mls @ 50 mls/hr IV ASDIRECTED [facility] Last Admin: 04/11/20 22:32 Dose: 50 mls/hr Documented by: Sodium Chloride (Normal Saline) 250 mls @ 20 mls/hr IV ASDIRECTED NABILA Last Admin: 04/13/20 17:55 Dose: 20 mls/hr Documented by: Remdesivir 200 mg/ Sodium (Chloride) 250 mls @ 250 mls/hr IV ONETIME ONE Stop: 04/22/20 14:59 Last Admin: 04/22/20 14:23 Dose: 250 mls/hr Documented by: Remdesivir 100 mg/ Sodium (Chloride) 100 mls @ 100 mls/hr IV Q24H [facility] Stop: 04/26/20 14:59 Last Admin: 04/24/20 13:38 Dose: 100 mls/hr Documented by: Levofloxacin/Dextrose 750 mg/ (Premix) 150 mls @ 100 mls/hr IV Q48H [facility] Last Admin: 04/30/20 11:40 Dose: 100 mls/hr Documented by: Vancomycin HCl 1 gm/ Sodium (Chloride) 250 mls @ 166.667 mls/hr IV Q24H [facility] Last Admin: 05/01/20 13:26 Dose: 166.667 mls/hr Documented by: Meropenem 1 gm/ Sodium (Chloride) 100 mls @ 200 mls/hr IV Q12H [facility] Last Admin: 05/01/20 04:01 Dose: 200 mls/hr Documented by: Insulin Glargine (Lantus Solostar) 26 units SUBCUT BEDTIME [facility] Last Admin: 04/11/20 23:35 Dose: Not Given Documented by: Insulin Glargine (Lantus Solostar) 24 units SUBCUT BEDTIME [facility] Last Admin: 04/11/20 22:33 Dose: 24 units Documented by: Insulin Human Lispro (Humalog) 0 unit SUBCUT QIDACANDBED [facility]; Protocol Last Admin: 05/02/20 17:46 Dose: 2 units Documented by: Insulin Human Lispro (Humalog) 0 unit SUBCUT QIDACANDBED [facility]; Protocol Last Admin: 05/02/20 08:24 Dose: Not Given Documented by: Magnesium Hydroxide (Milk Of Magnesia) 30 ml PO DAILY [facility] Last Admin: 04/21/20 11:06 Dose: 30 ml Documented by: Senna/Docusate Sodium (Senna Plus) 1 tab PO BID [facility] Last Admin: 04/21/20 11:06 Dose: 1 tab Documented by: Sodium Polystyrene Sulfonate (Kayexalate) 15 gm PO ONETIME ONE Stop: 04/22/20 10:01 Last Admin: 04/22/20 11:34 Dose: 15 gm Documented by: Vancomycin HCl (Vancomycin) 1 gm IV .PHARMACY TO DOSE NABILA Stop: 04/30/20 12:30 - Exam Quality Assessment: Supplemental Oxygen General: Alert, Oriented, Cooperative, No Acute Distress Lungs: Normal Respiratory Effort, Crackles (moderate diffuse mid and lower lung mcdermott ) Cardiovascular: Regular Rate, Regular Rhythm GI/Abdominal Exam: Soft, No Distention Extremities: No Pedal Edema. No: Increased Warmth Skin: Warm, Dry Psy/Mental Status: Alert, Normal Affect Sepsis Event Note - Evaluation Sepsis Screening Result: No Definite Risk - Focused Exam Vital Signs: Vital Signs Temp Pulse Resp BP Pulse Ox 05/03/20 08:00 35.5 C L 80 12 137/59 L 94 L 05/03/20 06:00 15 133/60 93 L 05/03/20 04:00 36.8 C 16 116/65 95 05/03/20 02:00 17 127/48 L 90 L 05/03/20 00:00 36.5 C 18 131/47 L 97 - Problem List Review Problem List Initiated/Reviewed/Updated: Yes - My Orders Last 24 Hours: My Active Orders 05/02/20 10:25 PT Evaluation and Treatment [CONS] Routine 05/03/20 11:00 Sodium Chloride 0.65% [[place] Nasal [place]] 0 ml ABRAHAN Q4H - Plan Plan:: ASSESSMENT AND PLAN BILATERAL PNEUMONIA SECONDARY TO [id number] has completed a course of steroids and convalescent plasma. Volume status appropriate today. Seems a little bit better with less supplemental oxygen requirement but still requiring 12 L/min. -Saline lock IV -Assess volume status daily -Supplemental oxygen as needed, wean as able -Increase activity as tolerated with physical therapy -Inhalers as needed PROBABLE BACTERIAL PNEUMONIA-sputum sample positive for group A streptococcus, blood cultures negative so far. Seems to be slowly improving. -Follow-up cultures -Ceftriaxone 1 g IV every 24 hours ACUTE DVT, left popliteal vein-noted with lower extremity ultrasound. -Enoxaparin 70 mg subcu daily, dose adjusted based on renal function -Discuss oral anticoagulation tomorrow CHRONIC KIDNEY DISEASE STAGE IV-renal function has improved during the course of the hospital stay. -Closely monitor urine output and renal function TYPE 2 DIABETES MELLITUS-blood sugars acceptable so far after stopping the sliding scale. -Continue usual dose of long-acting insulin -4 times daily glucometers MAINTENANCE ISSUES -DVT prophylaxis; enoxaparin -GI prophylaxis; not indicated -Figueroa catheter; not indicated -Nutrition; consistent carbohydrate diet DISPOSITION-anticipate discharge to home with home care versus [facility] after the hospital stay. Reggie Altamirano MD
[2020-05-03] MEDS: Sodium Chloride 0.65% Nasal Spray 45 ML Bottle NAS SCH ×4 (10:23→23:55)
[2020-05-03] MEDS: Aloe Vera/Sodium Chloride Gel 14.1 GM Tube NAS SCH ×3 (12:10→22:00)
[2020-05-03] MEDS: cefTRIAXone 1 GM in Sodium Chloride 0.9% 50 ML IV SCH (14:52)
[2020-05-03] MEDS: Enoxaparin 80 MG/0.8 ML Syringe SUBCUT SCH (15:26)
[2020-05-03] MEDS: Gabapentin 100 MG Cap PO SCH ×2 (19:31→21:43)
[2020-05-03] MEDS: Insulin Glargine,Human Rec. Analog 100 Units/ML 3 ML Pen SUBCUT SCH (21:58)
[2020-05-04] MEDS: Sodium Chloride 0.65% Nasal Spray 45 ML Bottle NAS SCH ×5 (05:33→19:19)
[2020-05-04] MEDS: Aloe Vera/Sodium Chloride Gel 14.1 GM Tube NAS SCH ×4 (05:51→21:22)
[2020-05-04] MEDS: Aspirin 81 MG Tab.Chew PO SCH (08:17)
[2020-05-04] MEDS: Tamoxifen 10 MG Tab PO SCH (08:17)
[2020-05-04] MEDS: Allopurinol 100 MG Tab PO SCH (08:17)
[2020-05-04] MEDS: Lactobacillus Rhamnosus GG (Probiotic) Cap PO SCH ×2 (08:17→21:19)
--- NOTE | 2020-05-04 12:45 | PCM.PN ---
- General Info Date of Service: 05/04/20 Subjective Update: No acute events overnight. No fevers. Her breathing status improves very small segment today. Supplemental oxygen requirement today range from 9liters via humidified mask to 14 liters via highflow nasal canula with supplemental 6 liters via simple mask to recover from minimal movement such as repositioning in bed or transfering to chair. Appetite is a still fair to poor, she drinks nutritional supplement. Dietary is working with patient to find supplements that she can tolerate. No complaints of chest pain or abdominal pain. She reports that she is feeling better today. Functional Status: Reports: Pain Controlled, Tolerating Diet - Review of Systems General: Reports: Weakness. Denies: Fever Pulmonary: Reports: Shortness of Breath. Denies: Pleuritic Chest Pain, Cough Cardiovascular: Reports: Dyspnea on Exertion. Denies: Chest Pain, Palpitations Gastrointestinal: Reports: Decreased Appetite. Denies: Abdominal Pain, Constipation Genitourinary: Reports: Incontinence Musculoskeletal: Reports: No Symptoms Skin: Reports: No Symptoms Neurological: Reports: No Symptoms Psychiatric: Reports: No Symptoms - Patient Data Vitals - Most Recent: Last Vital Signs Temp 97.2 F 05/04/20 08:00 Pulse 91 05/03/20 22:00 Resp 19 05/04/20 10:00 BP 113/50 L 05/04/20 10:00 Pulse Ox 90 L 05/04/20 10:00 Weight - Most Recent: 349 lb 3.395 oz I&O - Last 24 Hours: Intake & Output 05/03/20 05/04/20 05/04/20 22:59 06:59 14:59 Intake Total 670 Balance 670 Lefty Results Last 24 Hours: Microbiology 04/30/20 11:25 Aerobic Blood Culture - Preliminary Blood - Arm, Left NO GROWTH AFTER 4 DAYS Anaerobic Blood Culture - Preliminary NO GROWTH AFTER 4 DAYS 04/30/20 11:45 Aerobic Blood Culture - Preliminary Blood - Venous NO GROWTH AFTER 4 DAYS Anaerobic Blood Culture - Preliminary NO GROWTH AFTER 4 DAYS Med Orders - Current: Current Medications Acetaminophen (Tylenol) 650 mg PO Q4H PRN PRN Reason: Pain (Mild 1-3)/fever Last Admin: 04/29/20 05:58 Dose: 650 mg Documented by: Albuterol (Ventolin Hfa) 2 gm INH Q4H PRN PRN Reason: Shortness of Breath Last Admin: 04/21/20 19:08 Dose: 2 puff Documented by: Allopurinol (Zyloprim) 200 mg PO DAILY [facility] Last Admin: 05/04/20 08:17 Dose: 200 mg Documented by: Aspirin (Aspirin) 81 mg PO DAILY [facility] Last Admin: 05/04/20 08:17 Dose: 81 mg Documented by: Benzocaine/Menthol (Cepacol Sore Throat) 1 lozenge MUCMEM ASDIRECTED PRN PRN Reason: SORE THROAT Last Admin: 04/30/20 21:15 Dose: 1 lozenge Documented by: Dextrose (Glutose 15) 15 gm PO ONETIME PRN PRN Reason: Hypoglycemia Dextrose/Water (Dextrose 50% In Water) 50 ml IV ONETIME PRN PRN Reason: Hypoglycemia Enoxaparin Sodium (Lovenox) 70 mg SUBCUT Q24H [facility] Last Admin: 05/03/20 15:26 Dose: 70 mg Documented by: Gabapentin (Neurontin) 100 mg PO BEDTIME [facility] Last Admin: 05/03/20 21:43 Dose: Not Given Documented by: Ceftriaxone Sodium 1 gm/ (Sodium Chloride) 50 mls @ 100 mls/hr IV Q24H [facility] Last Admin: 05/03/20 14:52 Dose: 100 mls/hr Documented by: Insulin Glargine (Lantus Solostar) 24 units SUBCUT BEDTIME [facility] Last Admin: 05/03/20 21:58 Dose: 24 units Documented by: Lactobacillus Rhamnosus (Culturelle) 1 cap PO BID [facility] Last Admin: 05/04/20 08:17 Dose: 1 cap Documented by: Lorazepam (Ativan) 0.5 mg IVPUSH Q2H PRN PRN Reason: Anxiety Last Admin: 04/30/20 21:00 Dose: 0.5 mg Documented by: Melatonin (Melatonin) 9 mg PO BEDTIME PRN PRN Reason: Insomnia Last Admin: 05/01/20 20:19 Dose: 9 mg Documented by: Ondansetron HCl (Zofran) 4 mg IV Q4H PRN PRN Reason: Nausea/Vomiting Oxycodone HCl (Oxycodone) 5 mg PO Q4H PRN PRN Reason: Pain Last Admin: 05/02/20 17:05 Dose: 5 mg Documented by: Polyethylene Glycol (Miralax) 17 gm PO DAILY PRN PRN Reason: Constipation Last Admin: 04/21/20 08:06 Dose: 17 gm Documented by: Sodium Chloride (Saline Flush) 10 ml FLUSH ASDIRECTED PRN PRN Reason: Keep Vein Open Last Admin: 04/15/20 09:45 Dose: 10 ml Documented by: Sodium Chloride ([place] Nasal [place]) 0 ml ABRAHAN Q4H [facility] Last Admin: 05/04/20 11:14 Dose: 1 sprays Documented by: Sodium Chloride ([place] Saline Nasal Gel) 0 gm ABRAHAN QID [facility] Last Admin: 05/04/20 10:14 Dose: 1 applic Documented by: Tamoxifen Citrate (Nolvadex) 20 mg PO DAILY [facility] Last Admin: 05/04/20 08:17 Dose: 20 mg Documented by: Discontinued Medications Acetaminophen (Tylenol) 650 mg PO ONCALL ONE Stop: 04/13/20 16:31 Last Admin: 04/13/20 17:02 Dose: 650 mg Documented by: Acetaminophen (Tylenol) 650 mg PO ONCALL ONE Stop: 04/14/20 14:31 Last Admin: 04/14/20 15:56 Dose: 650 mg Documented by: Acetaminophen (Tylenol) 650 mg PO ONCALL ONE Stop: 04/15/20 10:31 Last Admin: 04/15/20 09:44 Dose: 650 mg Documented by: Acetaminophen (Tylenol) 650 mg PO ONCALL ONE Stop: 04/16/20 09:01 Last Admin: 04/16/20 09:28 Dose: 650 mg Documented by: Albuterol (Proventil Neb Soln) 2.5 mg NEB Q4H PRN PRN Reason: Shortness Of Breath/wheezing Last Admin: 04/15/20 20:23 Dose: 2.5 mg Documented by: Benzocaine/Menthol (Cepacol Sore Throat) 1 lozenge MUCMEM ASDIRECTED PRN PRN Reason: SORE THROAT Benzocaine/Menthol (Cepacol Sore Throat) Confirm Administered Dose 1 lozenge .ROUTE .STK-MED ONE Stop: 04/12/20 21:32 Last Admin: 04/12/20 22:57 Dose: Not Given Documented by: Bisacodyl (Dulcolax) 5 mg PO DAILY [facility] Last Admin: 04/21/20 11:06 Dose: 5 mg Documented by: Dexamethasone (Dexamethasone) 6 mg IVPUSH ONETIME ONE Stop: 04/11/20 17:50 Last Admin: 04/11/20 18:08 Dose: 6 mg Documented by: Dexamethasone (Dexamethasone) Confirm Administered Dose 4 mg .ROUTE .STK-MED ONE Stop: 04/11/20 18:01 Last Admin: 04/11/20 18:11 Dose: Not Given Documented by: Dexamethasone (Decadron) 6 mg IVPUSH Q24H [facility] Last Admin: 04/25/20 19:41 Dose: 6 mg Documented by: Diphenhydramine HCl (Benadryl) 25 mg IVPUSH ONCALL ONE Stop: 04/13/20 16:31 Last Admin: 04/13/20 17:02 Dose: 25 mg Documented by: Diphenhydramine HCl (Benadryl) 25 mg IVPUSH ONCALL ONE Stop: 04/14/20 14:31 Last Admin: 04/14/20 15:56 Dose: 25 mg Documented by: Diphenhydramine HCl (Benadryl) 25 mg PO ONCALL ONE Stop: 04/15/20 10:31 Last Admin: 04/15/20 09:46 Dose: 25 mg Documented by: Diphenhydramine HCl (Benadryl) 25 mg PO ONCALL ONE Stop: 04/16/20 09:01 Last Admin: 04/16/20 09:28 Dose: 25 mg Documented by: Enoxaparin Sodium (Lovenox) 30 mg SUBCUT DAILY [facility] Last Admin: 04/11/20 21:39 Dose: 30 mg Documented by: Enoxaparin Sodium (Lovenox) 30 mg SUBCUT BEDTIME [facility] Last Admin: 04/22/20 20:11 Dose: 30 mg Documented by: Furosemide (Lasix) 40 mg IVPUSH NOW ONE Stop: 04/16/20 12:01 Last Admin: 04/16/20 12:26 Dose: 40 mg Documented by: Furosemide (Lasix) 40 mg IV ONETIME ONE Stop: 04/22/20 12:01 Last Admin: 04/22/20 12:01 Dose: 40 mg Documented by: Furosemide (Lasix) 40 mg IVPUSH ONETIME ONE Stop: 04/22/20 21:16 Last Admin: 04/22/20 21:46 Dose: 40 mg Documented by: Furosemide (Lasix) 40 mg IVPUSH ONETIME ONE Stop: 04/24/20 18:17 Last Admin: 04/24/20 18:39 Dose: 40 mg Documented by: Furosemide (Lasix) 40 mg IVPUSH NOW ONE Stop: 04/28/20 17:16 Last Admin: 04/28/20 18:42 Dose: 40 mg Documented by: Furosemide (Lasix) 40 mg IVPUSH NOW ONE Stop: 04/29/20 08:31 Last Admin: 04/29/20 09:28 Dose: 40 mg Documented by: Furosemide (Lasix) 40 mg IVPUSH NOW ONE Stop: 05/01/20 08:41 Last Admin: 05/01/20 08:37 Dose: 40 mg Documented by: Sodium Chloride (Normal Saline) 1,000 mls @ 1,000 mls/hr IV ASDIRECTED [facility] Last Admin: 04/11/20 17:14 Dose: 1,000 mls/hr Documented by: Sodium Chloride (Normal Saline) 1,000 mls @ 50 mls/hr IV ASDIRECTED [facility] Last Admin: 04/11/20 22:32 Dose: 50 mls/hr Documented by: Sodium Chloride (Normal Saline) 250 mls @ 20 mls/hr IV ASDIRECTED [facility] Last Admin: 04/13/20 17:55 Dose: 20 mls/hr Documented by: Remdesivir 200 mg/ Sodium (Chloride) 250 mls @ 250 mls/hr IV ONETIME ONE Stop: 04/22/20 14:59 Last Admin: 04/22/20 14:23 Dose: 250 mls/hr Documented by: Remdesivir 100 mg/ Sodium (Chloride) 100 mls @ 100 mls/hr IV Q24H [facility] Stop: 04/26/20 14:59 Last Admin: 04/24/20 13:38 Dose: 100 mls/hr Documented by: Levofloxacin/Dextrose 750 mg/ (Premix) 150 mls @ 100 mls/hr IV Q48H [facility] Last Admin: 04/30/20 11:40 Dose: 100 mls/hr Documented by: Vancomycin HCl 1 gm/ Sodium (Chloride) 250 mls @ 166.667 mls/hr IV Q24H [facility] Last Admin: 05/01/20 13:26 Dose: 166.667 mls/hr Documented by: Meropenem 1 gm/ Sodium (Chloride) 100 mls @ 200 mls/hr IV Q12H [facility] Last Admin: 05/01/20 04:01 Dose: 200 mls/hr Documented by: Insulin Glargine (Lantus Solostar) 26 units SUBCUT BEDTIME [facility] Last Admin: 04/11/20 23:35 Dose: Not Given Documented by: Insulin Glargine (Lantus Solostar) 24 units SUBCUT BEDTIME [facility] Last Admin: 04/11/20 22:33 Dose: 24 units Documented by: Insulin Human Lispro (Humalog) 0 unit SUBCUT QIDACANDBED [facility]; Protocol Last Admin: 05/02/20 17:46 Dose: 2 units Documented by: Insulin Human Lispro (Humalog) 0 unit SUBCUT QIDACANDBED [facility]; Protocol Last Admin: 05/02/20 08:24 Dose: Not Given Documented by: Magnesium Hydroxide (Milk Of Magnesia) 30 ml PO DAILY [facility] Last Admin: 04/21/20 11:06 Dose: 30 ml Documented by: Senna/Docusate Sodium (Senna Plus) 1 tab PO BID [facility] Last Admin: 04/21/20 11:06 Dose: 1 tab Documented by: Sodium Polystyrene Sulfonate (Kayexalate) 15 gm PO ONETIME ONE Stop: 04/22/20 10:01 Last Admin: 04/22/20 11:34 Dose: 15 gm Documented by: Vancomycin HCl (Vancomycin) 1 gm IV .PHARMACY TO DOSE [facility] Stop: 04/30/20 12:30 - Exam Quality Assessment: Supplemental Oxygen. No: Urine Catheter General: Alert, Oriented Neck: No JVD Lungs: Crackles (difuse to lower and middle lung mc[place]mott, moderate) Cardiovascular: Regular Rate, Regular Rhythm GI/Abdominal Exam: Normal Bowel Sounds, Soft, Non-Tender, No Organomegaly, No Distention Extremities: Pedal Edema Skin: Warm, Dry Neurological: No New Focal Deficit Psy/Mental Status: Alert, Normal Affect, Normal Mood Sepsis Event Note - Evaluation Sepsis Screening Result: Sepsis Risk - Focused Exam Vital Signs: Vital Signs Temp Resp BP Pulse Ox 05/04/20 10:00 19 113/50 L 90 L 05/04/20 08:00 97.2 F 26 H 122/53 L 90 L 05/04/20 06:00 97.3 F 17 118/52 L 90 L 05/04/20 04:00 18 126/51 L 96 05/04/20 02:00 18 123/50 L 94 L - Problem List Review Problem List Initiated/Reviewed/Updated: Yes - Plan Plan:: ASSESSMENT AND PLAN BILATERAL PNEUMONIA SECONDARY TO [id number] has completed a course of steroids and convalescent plasma. Volume status appropriate today. Seems a little bit better with less supplemental oxygen requirement. -Saline lock IV -Assess volume status daily -Supplemental oxygen as needed, wean as able -Increase activity as tolerated with physical therapy -Inhalers as needed PROBABLE BACTERIAL PNEUMONIA-sputum sample positive for group A streptococcus, blood cultures negative so far. Seems to be slowly improving. -Follow-up cultures -Ceftriaxone 1 g IV every 24 hours ACUTE DVT, left popliteal vein-noted with lower extremity ultrasound. -Enoxaparin 70 mg subcu discontinue -Start oral anticoagulation CHRONIC KIDNEY DISEASE STAGE IV-renal function has improved during the course of the hospital stay. -Closely monitor urine output and renal function TYPE 2 DIABETES MELLITUS-blood sugars acceptable so far after stopping the sliding scale. -Continue usual dose of long-acting insulin -4 times daily glucometers MAINTENANCE ISSUES -DVT prophylaxis; enoxaparin -GI prophylaxis; not indicated -Figueroa catheter; not indicated -Nutrition; consistent carbohydrate diet DISPOSITION-anticipate discharge to home with home care versus senior care after the hospital stay. Reggie Altamirano MD
--- NOTE | 2020-05-04 13:20 | PCM.PN ---
- General Info Date of Service: 05/04/20 Subjective Update: No acute events overnight. No fevers. Shortness of breath is stable compared to yesterday. Appetite is a little better. Still weak but making the transfer from the bed to the chair. Oxygenation is may be slightly better today. No nausea or chest pain. Functional Status: Reports: Pain Controlled, Tolerating Diet - Review of Systems General: Reports: Weakness. Denies: Fever Pulmonary: Reports: Shortness of Breath - Patient Data Vitals - Most Recent: Last Vital Signs Temp 36.2 C 05/04/20 08:00 Pulse 91 05/03/20 22:00 Resp 19 05/04/20 10:00 BP 113/50 L 05/04/20 10:00 Pulse Ox 90 L 05/04/20 10:00 Weight - Most Recent: 158.4 kg I&O - Last 24 Hours: Intake & Output 05/03/20 05/04/20 05/04/20 22:59 06:59 14:59 Intake Total 670 Balance 670 Lefty Results Last 24 Hours: Microbiology 04/30/20 11:25 Aerobic Blood Culture - Preliminary Blood - Arm, Left NO GROWTH AFTER 4 DAYS Anaerobic Blood Culture - Preliminary NO GROWTH AFTER 4 DAYS 04/30/20 11:45 Aerobic Blood Culture - Preliminary Blood - Venous NO GROWTH AFTER 4 DAYS Anaerobic Blood Culture - Preliminary NO GROWTH AFTER 4 DAYS Med Orders - Current: Current Medications Acetaminophen (Tylenol) 650 mg PO Q4H PRN PRN Reason: Pain (Mild 1-3)/fever Last Admin: 04/29/20 05:58 Dose: 650 mg Documented by: Albuterol (Ventolin Hfa) 2 gm INH Q4H PRN PRN Reason: Shortness of Breath Last Admin: 04/21/20 19:08 Dose: 2 puff Documented by: Allopurinol (Zyloprim) 200 mg PO DAILY [facility] Last Admin: 05/04/20 08:17 Dose: 200 mg Documented by: Aspirin (Aspirin) 81 mg PO DAILY [facility] Last Admin: 05/04/20 08:17 Dose: 81 mg Documented by: Benzocaine/Menthol (Cepacol Sore Throat) 1 lozenge MUCMEM ASDIRECTED PRN PRN Reason: SORE THROAT Last Admin: 04/30/20 21:15 Dose: 1 lozenge Documented by: Dextrose (Glutose 15) 15 gm PO ONETIME PRN PRN Reason: Hypoglycemia Dextrose/Water (Dextrose 50% In Water) 50 ml IV ONETIME PRN PRN Reason: Hypoglycemia Enoxaparin Sodium (Lovenox) 70 mg SUBCUT Q24H [facility] Last Admin: 05/03/20 15:26 Dose: 70 mg Documented by: Gabapentin (Neurontin) 100 mg PO BEDTIME [facility] Last Admin: 05/03/20 21:43 Dose: Not Given Documented by: Ceftriaxone Sodium 1 gm/ (Sodium Chloride) 50 mls @ 100 mls/hr IV Q24H [facility] Last Admin: 05/03/20 14:52 Dose: 100 mls/hr Documented by: Insulin Glargine (Lantus Solostar) 24 units SUBCUT BEDTIME [facility] Last Admin: 05/03/20 21:58 Dose: 24 units Documented by: Lactobacillus Rhamnosus (Culturelle) 1 cap PO BID [facility] Last Admin: 05/04/20 08:17 Dose: 1 cap Documented by: Lorazepam (Ativan) 0.5 mg IVPUSH Q2H PRN PRN Reason: Anxiety Last Admin: 04/30/20 21:00 Dose: 0.5 mg Documented by: Melatonin (Melatonin) 9 mg PO BEDTIME PRN PRN Reason: Insomnia Last Admin: 05/01/20 20:19 Dose: 9 mg Documented by: Ondansetron HCl (Zofran) 4 mg IV Q4H PRN PRN Reason: Nausea/Vomiting Oxycodone HCl (Oxycodone) 5 mg PO Q4H PRN PRN Reason: Pain Last Admin: 05/02/20 17:05 Dose: 5 mg Documented by: Polyethylene Glycol (Miralax) 17 gm PO DAILY PRN PRN Reason: Constipation Last Admin: 04/21/20 08:06 Dose: 17 gm Documented by: Sodium Chloride (Saline Flush) 10 ml FLUSH ASDIRECTED PRN PRN Reason: Keep Vein Open Last Admin: 04/15/20 09:45 Dose: 10 ml Documented by: Sodium Chloride ([place] Nasal [place]) 0 ml ABRAHAN Q4H [facility] Last Admin: 05/04/20 11:14 Dose: 1 sprays Documented by: Sodium Chloride ([place] Saline Nasal Gel) 0 gm ABRAHAN QID [facility] Last Admin: 05/04/20 10:14 Dose: 1 applic Documented by: Tamoxifen Citrate (Nolvadex) 20 mg PO DAILY [facility] Last Admin: 05/04/20 08:17 Dose: 20 mg Documented by: Discontinued Medications Acetaminophen (Tylenol) 650 mg PO ONCALL ONE Stop: 04/13/20 16:31 Last Admin: 04/13/20 17:02 Dose: 650 mg Documented by: Acetaminophen (Tylenol) 650 mg PO ONCALL ONE Stop: 04/14/20 14:31 Last Admin: 04/14/20 15:56 Dose: 650 mg Documented by: Acetaminophen (Tylenol) 650 mg PO ONCALL ONE Stop: 04/15/20 10:31 Last Admin: 04/15/20 09:44 Dose: 650 mg Documented by: Acetaminophen (Tylenol) 650 mg PO ONCALL ONE Stop: 04/16/20 09:01 Last Admin: 04/16/20 09:28 Dose: 650 mg Documented by: Albuterol (Proventil Neb Soln) 2.5 mg NEB Q4H PRN PRN Reason: Shortness Of Breath/wheezing Last Admin: 04/15/20 20:23 Dose: 2.5 mg Documented by: Benzocaine/Menthol (Cepacol Sore Throat) 1 lozenge MUCMEM ASDIRECTED PRN PRN Reason: SORE THROAT Benzocaine/Menthol (Cepacol Sore Throat) Confirm Administered Dose 1 lozenge .ROUTE .STK-MED ONE Stop: 04/12/20 21:32 Last Admin: 04/12/20 22:57 Dose: Not Given Documented by: Bisacodyl (Dulcolax) 5 mg PO DAILY [facility] Last Admin: 04/21/20 11:06 Dose: 5 mg Documented by: Dexamethasone (Dexamethasone) 6 mg IVPUSH ONETIME ONE Stop: 04/11/20 17:50 Last Admin: 04/11/20 18:08 Dose: 6 mg Documented by: Dexamethasone (Dexamethasone) Confirm Administered Dose 4 mg .ROUTE .STK-MED ONE Stop: 04/11/20 18:01 Last Admin: 04/11/20 18:11 Dose: Not Given Documented by: Dexamethasone (Decadron) 6 mg IVPUSH Q24H [facility] Last Admin: 04/25/20 19:41 Dose: 6 mg Documented by: Diphenhydramine HCl (Benadryl) 25 mg IVPUSH ONCALL ONE Stop: 04/13/20 16:31 Last Admin: 04/13/20 17:02 Dose: 25 mg Documented by: Diphenhydramine HCl (Benadryl) 25 mg IVPUSH ONCALL ONE Stop: 04/14/20 14:31 Last Admin: 04/14/20 15:56 Dose: 25 mg Documented by: Diphenhydramine HCl (Benadryl) 25 mg PO ONCALL ONE Stop: 04/15/20 10:31 Last Admin: 04/15/20 09:46 Dose: 25 mg Documented by: Diphenhydramine HCl (Benadryl) 25 mg PO ONCALL ONE Stop: 04/16/20 09:01 Last Admin: 04/16/20 09:28 Dose: 25 mg Documented by: Enoxaparin Sodium (Lovenox) 30 mg SUBCUT DAILY [facility] Last Admin: 04/11/20 21:39 Dose: 30 mg Documented by: Enoxaparin Sodium (Lovenox) 30 mg SUBCUT BEDTIME [facility] Last Admin: 04/22/20 20:11 Dose: 30 mg Documented by: Furosemide (Lasix) 40 mg IVPUSH NOW ONE Stop: 04/16/20 12:01 Last Admin: 04/16/20 12:26 Dose: 40 mg Documented by: Furosemide (Lasix) 40 mg IV ONETIME ONE Stop: 04/22/20 12:01 Last Admin: 04/22/20 12:01 Dose: 40 mg Documented by: Furosemide (Lasix) 40 mg IVPUSH ONETIME ONE Stop: 04/22/20 21:16 Last Admin: 04/22/20 21:46 Dose: 40 mg Documented by: Furosemide (Lasix) 40 mg IVPUSH ONETIME ONE Stop: 04/24/20 18:17 Last Admin: 04/24/20 18:39 Dose: 40 mg Documented by: Furosemide (Lasix) 40 mg IVPUSH NOW ONE Stop: 04/28/20 17:16 Last Admin: 04/28/20 18:42 Dose: 40 mg Documented by: Furosemide (Lasix) 40 mg IVPUSH NOW ONE Stop: 04/29/20 08:31 Last Admin: 04/29/20 09:28 Dose: 40 mg Documented by: Furosemide (Lasix) 40 mg IVPUSH NOW ONE Stop: 05/01/20 08:41 Last Admin: 05/01/20 08:37 Dose: 40 mg Documented by: Sodium Chloride (Normal Saline) 1,000 mls @ 1,000 mls/hr IV ASDIRECTED [facility] Last Admin: 04/11/20 17:14 Dose: 1,000 mls/hr Documented by: Sodium Chloride (Normal Saline) 1,000 mls @ 50 mls/hr IV ASDIRECTED [facility] Last Admin: 04/11/20 22:32 Dose: 50 mls/hr Documented by: Sodium Chloride (Normal Saline) 250 mls @ 20 mls/hr IV ASDIRECTED [facility] Last Admin: 04/13/20 17:55 Dose: 20 mls/hr Documented by: Remdesivir 200 mg/ Sodium (Chloride) 250 mls @ 250 mls/hr IV ONETIME ONE Stop: 04/22/20 14:59 Last Admin: 04/22/20 14:23 Dose: 250 mls/hr Documented by: Remdesivir 100 mg/ Sodium (Chloride) 100 mls @ 100 mls/hr IV Q24H [facility] Stop: 04/26/20 14:59 Last Admin: 04/24/20 13:38 Dose: 100 mls/hr Documented by: Levofloxacin/Dextrose 750 mg/ (Premix) 150 mls @ 100 mls/hr IV Q48H [facility] Last Admin: 04/30/20 11:40 Dose: 100 mls/hr Documented by: Vancomycin HCl 1 gm/ Sodium (Chloride) 250 mls @ 166.667 mls/hr IV Q24H [facility] Last Admin: 05/01/20 13:26 Dose: 166.667 mls/hr Documented by: Meropenem 1 gm/ Sodium (Chloride) 100 mls @ 200 mls/hr IV Q12H [facility] Last Admin: 05/01/20 04:01 Dose: 200 mls/hr Documented by: Insulin Glargine (Lantus Solostar) 26 units SUBCUT BEDTIME [facility] Last Admin: 04/11/20 23:35 Dose: Not Given Documented by: Insulin Glargine (Lantus Solostar) 24 units SUBCUT BEDTIME [facility] Last Admin: 04/11/20 22:33 Dose: 24 units Documented by: Insulin Human Lispro (Humalog) 0 unit SUBCUT QIDACANDBED [facility]; Protocol Last Admin: 05/02/20 17:46 Dose: 2 units Documented by: Insulin Human Lispro (Humalog) 0 unit SUBCUT QIDACANDBED [facility]; Protocol Last Admin: 05/02/20 08:24 Dose: Not Given Documented by: Magnesium Hydroxide (Milk Of Magnesia) 30 ml PO DAILY [facility] Last Admin: 04/21/20 11:06 Dose: 30 ml Documented by: Senna/Docusate Sodium (Senna Plus) 1 tab PO BID [facility] Last Admin: 04/21/20 11:06 Dose: 1 tab Documented by: Sodium Polystyrene Sulfonate (Kayexalate) 15 gm PO ONETIME ONE Stop: 04/22/20 10:01 Last Admin: 04/22/20 11:34 Dose: 15 gm Documented by: Vancomycin HCl (Vancomycin) 1 gm IV .PHARMACY TO DOSE [facility] Stop: 04/30/20 12:30 - Exam Quality Assessment: Supplemental Oxygen General: Alert, Oriented, Cooperative, No Acute Distress Lungs: Normal Respiratory Effort, Crackles (moderate fine crackles throughout) Cardiovascular: Regular Rate, Regular Rhythm GI/Abdominal Exam: Soft, No Distention Extremities: No Pedal Edema. No: Increased Warmth Skin: Warm, Dry Psy/Mental Status: Alert, Normal Affect Sepsis Event Note - Evaluation Sepsis Screening Result: Sepsis Risk - Focused Exam Vital Signs: Vital Signs Temp Resp BP Pulse Ox 05/04/20 10:00 19 113/50 L 90 L 05/04/20 08:00 36.2 C 26 H 122/53 L 90 L 05/04/20 06:00 36.3 C 17 118/52 L 90 L 05/04/20 04:00 18 126/51 L 96 05/04/20 02:00 18 123/50 L 94 L - Problem List Review Problem List Initiated/Reviewed/Updated: Yes - Plan Plan:: ASSESSMENT AND PLAN BILATERAL PNEUMONIA SECONDARY TO [id number] has completed a course of steroids and convalescent plasma. Volume status appropriate again today. Stable to marginally better. -Saline lock IV -Assess volume status daily -Supplemental oxygen as needed, wean as able -Increase activity as tolerated with physical therapy -Inhalers as needed PROBABLE BACTERIAL PNEUMONIA-sputum sample positive for group A streptococcus, blood cultures negative so far. Seems to be slowly improving. -Follow-up cultures -Ceftriaxone 1 g IV every 24 hours ACUTE DVT, left popliteal vein-noted with lower extremity ultrasound. -Stop enoxaparin -Start oral anticoagulation with apixaban CHRONIC KIDNEY DISEASE STAGE IV-renal function has improved dramatically during the course of the hospital stay. -Closely monitor urine output and renal function TYPE 2 DIABETES MELLITUS-blood sugars acceptable so far after stopping the sliding scale. -Continue usual dose of long-acting insulin -4 times daily glucometers MAINTENANCE ISSUES -DVT prophylaxis; transitioning to apixaban -GI prophylaxis; not indicated -Nutrition; consistent carbohydrate diet DISPOSITION-anticipate discharge to home with home care versus care home after the hospital stay. Reggie Altamirano MD
[2020-05-04] MEDS: Apixaban 5 MG Tab PO SCH ×2 (14:16→21:19)
[2020-05-04] MEDS: cefTRIAXone 1 GM in Sodium Chloride 0.9% 50 ML IV SCH (14:41)
[2020-05-04] MEDS: Insulin Glargine,Human Rec. Analog 100 Units/ML 3 ML Pen SUBCUT SCH (21:19)
[2020-05-04] MEDS: Gabapentin 100 MG Cap PO SCH (21:22)
[2020-05-05] MEDS: Sodium Chloride 0.65% Nasal Spray 45 ML Bottle NAS SCH ×7 (01:43→22:34)
[2020-05-05] MEDS: Benzocaine/Cetylpyridinium/Menthol Lozenge MUCMEM PRN (04:22)
[2020-05-05] MEDS: Aloe Vera/Sodium Chloride Gel 14.1 GM Tube NAS SCH ×4 (05:49→22:34)
--- NOTE | 2020-05-05 09:44 | CR ---
CHEST: Portable 05/05/2020 at 9:33 AM CLINICAL HISTORY:Cough, hypoxia COMPARISON:04/28/2020 FINDINGS: Patient has diffuse bilateral increasing pneumonic infiltrates. Heart size and pulmonary vascularity are normal. No effusions are seen. IMPRESSION: Moderate diffuse increasing bilateral pneumonic infiltrates
--- NOTE | 2020-05-05 10:12 | PCM.PN ---
- General Info Date of Service: 05/05/20 Subjective Update: No acute events overnight but patient has had a further decline in her respiratory status. Oxygenation is not as good today as it was yesterday and she is requiring more supplemental oxygen. She feels a little bit more short of breath today. She is a little bit weaker today. She has not had any fevers. Heart rate is mildly tachycardic. Appetite has been okay but intake has not been great. Functional Status: Reports: Pain Controlled, Tolerating Diet - Review of Systems General: Denies: Fever Pulmonary: Reports: Shortness of Breath - Patient Data Vitals - Most Recent: Last Vital Signs Temp 35.5 C L 05/05/20 07:53 Pulse 92 05/05/20 07:53 Resp 26 H 05/05/20 07:53 BP 126/57 L 05/05/20 07:53 Pulse Ox 92 L 05/05/20 07:53 Weight - Most Recent: 158.4 kg [place] Results Last 24 Hours: Microbiology 04/30/20 11:25 Aerobic Blood Culture - Preliminary Blood - Arm, Left NO GROWTH AFTER 4 DAYS Anaerobic Blood Culture - Preliminary NO GROWTH AFTER 4 DAYS 04/30/20 11:45 Aerobic Blood Culture - Preliminary Blood - Venous NO GROWTH AFTER 4 DAYS Anaerobic Blood Culture - Preliminary NO GROWTH AFTER 4 DAYS Med Orders - Current: Current Medications Acetaminophen (Tylenol) 650 mg PO Q4H PRN PRN Reason: Pain (Mild 1-3)/fever Last Admin: 04/29/20 05:58 Dose: 650 mg Documented by: Albuterol (Ventolin Hfa) 2 gm INH Q4H PRN PRN Reason: Shortness of Breath Last Admin: 04/21/20 19:08 Dose: 2 puff Documented by: Allopurinol (Zyloprim) 200 mg PO DAILY [facility] Last Admin: 05/04/20 08:17 Dose: 200 mg Documented by: Apixaban (Eliquis) 5 mg PO BID [facility] Last Admin: 05/04/20 21:19 Dose: 5 mg Documented by: Aspirin (Aspirin) 81 mg PO DAILY [facility] Last Admin: 05/04/20 08:17 Dose: 81 mg Documented by: Benzocaine/Menthol (Cepacol Sore Throat) 1 lozenge MUCMEM ASDIRECTED PRN PRN Reason: SORE THROAT Last Admin: 05/05/20 04:22 Dose: 1 lozenge Documented by: Dextrose (Glutose 15) 15 gm PO ONETIME PRN PRN Reason: Hypoglycemia Dextrose/Water (Dextrose 50% In Water) 50 ml IV ONETIME PRN PRN Reason: Hypoglycemia Furosemide (Lasix) 20 mg IVPUSH ONETIME ONE Stop: 05/05/20 10:09 Gabapentin (Neurontin) 100 mg PO BEDTIME [facility] Last Admin: 05/04/20 21:22 Dose: 100 mg Documented by: Doxycycline Hyclate 100 mg/ (Sodium Chloride) 100 mls @ 100 mls/hr IV Q12H NABILA Ceftazidime 1 gm/ Sodium (Chloride) 50 mls @ 100 mls/hr IV Q12H NABILA Insulin Glargine (Lantus Solostar) 24 units SUBCUT BEDTIME [facility] Last Admin: 05/04/20 21:19 Dose: 24 units Documented by: Lactobacillus Rhamnosus (Culturelle) 1 cap PO BID [facility] Last Admin: 05/04/20 21:19 Dose: 1 cap Documented by: Lorazepam (Ativan) 0.5 mg IVPUSH Q2H PRN PRN Reason: Anxiety Last Admin: 04/30/20 21:00 Dose: 0.5 mg Documented by: Melatonin (Melatonin) 9 mg PO BEDTIME PRN PRN Reason: Insomnia Last Admin: 05/01/20 20:19 Dose: 9 mg Documented by: Ondansetron HCl (Zofran) 4 mg IV Q4H PRN PRN Reason: Nausea/Vomiting Oxycodone HCl (Oxycodone) 5 mg PO Q4H PRN PRN Reason: Pain Last Admin: 05/02/20 17:05 Dose: 5 mg Documented by: Polyethylene Glycol (Miralax) 17 gm PO DAILY PRN PRN Reason: Constipation Last Admin: 04/21/20 08:06 Dose: 17 gm Documented by: Sodium Chloride (Saline Flush) 10 ml FLUSH ASDIRECTED PRN PRN Reason: Keep Vein Open Last Admin: 04/15/20 09:45 Dose: 10 ml Documented by: Sodium Chloride ([place] Nasal [place]) 0 ml ABRAHAN Q4H NABILA Last Admin: 05/05/20 03:51 Dose: 2 sprays Documented by: Sodium Chloride ([place] Saline Nasal Gel) 0 gm ABRAHAN QID NABILA Last Admin: 05/05/20 05:49 Dose: 1 applic Documented by: Discontinued Medications Acetaminophen (Tylenol) 650 mg PO ONCALL ONE Stop: 04/13/20 16:31 Last Admin: 04/13/20 17:02 Dose: 650 mg Documented by: Acetaminophen (Tylenol) 650 mg PO ONCALL ONE Stop: 04/14/20 14:31 Last Admin: 04/14/20 15:56 Dose: 650 mg Documented by: Acetaminophen (Tylenol) 650 mg PO ONCALL ONE Stop: 04/15/20 10:31 Last Admin: 04/15/20 09:44 Dose: 650 mg Documented by: Acetaminophen (Tylenol) 650 mg PO ONCALL ONE Stop: 04/16/20 09:01 Last Admin: 04/16/20 09:28 Dose: 650 mg Documented by: Albuterol (Proventil Neb Soln) 2.5 mg NEB Q4H PRN PRN Reason: Shortness Of Breath/wheezing Last Admin: 04/15/20 20:23 Dose: 2.5 mg Documented by: Benzocaine/Menthol (Cepacol Sore Throat) 1 lozenge MUCMEM ASDIRECTED PRN PRN Reason: SORE THROAT Benzocaine/Menthol (Cepacol Sore Throat) Confirm Administered Dose 1 lozenge .ROUTE .STK-MED ONE Stop: 04/12/20 21:32 Last Admin: 04/12/20 22:57 Dose: Not Given Documented by: Bisacodyl (Dulcolax) 5 mg PO DAILY [facility] Last Admin: 04/21/20 11:06 Dose: 5 mg Documented by: Dexamethasone (Dexamethasone) 6 mg IVPUSH ONETIME ONE Stop: 04/11/20 17:50 Last Admin: 04/11/20 18:08 Dose: 6 mg Documented by: Dexamethasone (Dexamethasone) Confirm Administered Dose 4 mg .ROUTE .STK-MED ONE Stop: 04/11/20 18:01 Last Admin: 04/11/20 18:11 Dose: Not Given Documented by: Dexamethasone (Decadron) 6 mg IVPUSH Q24H [facility] Last Admin: 04/25/20 19:41 Dose: 6 mg Documented by: Diphenhydramine HCl (Benadryl) 25 mg IVPUSH ONCALL ONE Stop: 04/13/20 16:31 Last Admin: 04/13/20 17:02 Dose: 25 mg Documented by: Diphenhydramine HCl (Benadryl) 25 mg IVPUSH ONCALL ONE Stop: 04/14/20 14:31 Last Admin: 04/14/20 15:56 Dose: 25 mg Documented by: Diphenhydramine HCl (Benadryl) 25 mg PO ONCALL ONE Stop: 04/15/20 10:31 Last Admin: 04/15/20 09:46 Dose: 25 mg Documented by: Diphenhydramine HCl (Benadryl) 25 mg PO ONCALL ONE Stop: 04/16/20 09:01 Last Admin: 04/16/20 09:28 Dose: 25 mg Documented by: Enoxaparin Sodium (Lovenox) 30 mg SUBCUT DAILY [facility] Last Admin: 04/11/20 21:39 Dose: 30 mg Documented by: Enoxaparin Sodium (Lovenox) 30 mg SUBCUT BEDTIME [facility] Last Admin: 04/22/20 20:11 Dose: 30 mg Documented by: Enoxaparin Sodium (Lovenox) 70 mg SUBCUT Q24H [facility] Last Admin: 05/03/20 15:26 Dose: 70 mg Documented by: Furosemide (Lasix) 40 mg IVPUSH NOW ONE Stop: 04/16/20 12:01 Last Admin: 04/16/20 12:26 Dose: 40 mg Documented by: Furosemide (Lasix) 40 mg IV ONETIME ONE Stop: 04/22/20 12:01 Last Admin: 04/22/20 12:01 Dose: 40 mg Documented by: Furosemide (Lasix) 40 mg IVPUSH ONETIME ONE Stop: 04/22/20 21:16 Last Admin: 04/22/20 21:46 Dose: 40 mg Documented by: Furosemide (Lasix) 40 mg IVPUSH ONETIME ONE Stop: 04/24/20 18:17 Last Admin: 04/24/20 18:39 Dose: 40 mg Documented by: Furosemide (Lasix) 40 mg IVPUSH NOW ONE Stop: 04/28/20 17:16 Last Admin: 04/28/20 18:42 Dose: 40 mg Documented by: Furosemide (Lasix) 40 mg IVPUSH NOW ONE Stop: 04/29/20 08:31 Last Admin: 04/29/20 09:28 Dose: 40 mg Documented by: Furosemide (Lasix) 40 mg IVPUSH NOW ONE Stop: 05/01/20 08:41 Last Admin: 05/01/20 08:37 Dose: 40 mg Documented by: Sodium Chloride (Normal Saline) 1,000 mls @ 1,000 mls/hr IV ASDIRECTED [facility] Last Admin: 04/11/20 17:14 Dose: 1,000 mls/hr Documented by: Sodium Chloride (Normal Saline) 1,000 mls @ 50 mls/hr IV ASDIRECTED [facility] Last Admin: 04/11/20 22:32 Dose: 50 mls/hr Documented by: Sodium Chloride (Normal Saline) 250 mls @ 20 mls/hr IV ASDIRECTED [facility] Last Admin: 04/13/20 17:55 Dose: 20 mls/hr Documented by: Remdesivir 200 mg/ Sodium (Chloride) 250 mls @ 250 mls/hr IV ONETIME ONE Stop: 04/22/20 14:59 Last Admin: 04/22/20 14:23 Dose: 250 mls/hr Documented by: Remdesivir 100 mg/ Sodium (Chloride) 100 mls @ 100 mls/hr IV Q24H [facility] Stop: 04/26/20 14:59 Last Admin: 04/24/20 13:38 Dose: 100 mls/hr Documented by: Levofloxacin/Dextrose 750 mg/ (Premix) 150 mls @ 100 mls/hr IV Q48H [facility] Last Admin: 04/30/20 11:40 Dose: 100 mls/hr Documented by: Vancomycin HCl 1 gm/ Sodium (Chloride) 250 mls @ 166.667 mls/hr IV Q24H [facility] Last Admin: 05/01/20 13:26 Dose: 166.667 mls/hr Documented by: Meropenem 1 gm/ Sodium (Chloride) 100 mls @ 200 mls/hr IV Q12H [facility] Last Admin: 05/01/20 04:01 Dose: 200 mls/hr Documented by: Ceftriaxone Sodium 1 gm/ (Sodium Chloride) 50 mls @ 100 mls/hr IV Q24H [facility] Last Admin: 05/04/20 14:41 Dose: 100 mls/hr Documented by: Insulin Glargine (Lantus Solostar) 26 units SUBCUT BEDTIME [facility] Last Admin: 04/11/20 23:35 Dose: Not Given Documented by: Insulin Glargine (Lantus Solostar) 24 units SUBCUT BEDTIME [facility] Last Admin: 04/11/20 22:33 Dose: 24 units Documented by: Insulin Human Lispro (Humalog) 0 unit SUBCUT QIDACANDBED [facility]; Protocol Last Admin: 05/02/20 17:46 Dose: 2 units Documented by: Insulin Human Lispro (Humalog) 0 unit SUBCUT QIDACANDBED [facility]; Protocol Last Admin: 05/02/20 08:24 Dose: Not Given Documented by: Magnesium Hydroxide (Milk Of Magnesia) 30 ml PO DAILY [facility] Last Admin: 04/21/20 11:06 Dose: 30 ml Documented by: Senna/Docusate Sodium (Senna Plus) 1 tab PO BID [facility] Last Admin: 04/21/20 11:06 Dose: 1 tab Documented by: Sodium Polystyrene Sulfonate (Kayexalate) 15 gm PO ONETIME ONE Stop: 04/22/20 10:01 Last Admin: 04/22/20 11:34 Dose: 15 gm Documented by: Tamoxifen Citrate (Nolvadex) 20 mg PO DAILY [facility] Last Admin: 05/04/20 08:17 Dose: 20 mg Documented by: Vancomycin HCl (Vancomycin) 1 gm IV .PHARMACY TO DOSE NABILA Stop: 04/30/20 12:30 - Exam Quality Assessment: Supplemental Oxygen General: Alert, Cooperative, No Acute Distress Neck: No JVD Lungs: Crackles (mid and lower lung zones, moderate). No: Normal Respiratory Effort (increased work of breathing ) Cardiovascular: Regular Rhythm, Tachycardia. No: Murmurs, Gallops GI/Abdominal Exam: Normal Bowel Sounds, Soft, No Distention Extremities: No Pedal Edema. No: Increased Warmth Skin: Warm, Dry Psy/Mental Status: Alert, Normal Affect Sepsis Event Note - Evaluation Sepsis Screening Result: No Definite Risk - Focused Exam Vital Signs: Vital Signs Temp Pulse Resp BP Pulse Ox 05/05/20 07:53 35.5 C L 92 26 H 126/57 L 92 L 05/05/20 06:00 20 126/57 L 94 L 05/05/20 04:00 20 127/59 L 94 L 05/05/20 02:00 36.4 C 18 138/60 90 L 05/05/20 00:00 36.2 C 22 H 90 L - Problem List Review Problem List Initiated/Reviewed/Updated: Yes - My Orders Last 24 Hours: My Active Orders 05/05/20 10:08 Furosemide [Lasix] 20 mg IVPUSH ONETIME ONE 05/05/20 10:15 Doxycycline [Vibramycin] 100 mg Sodium Chloride 0.9% [Normal Saline] 100 ml IV Q12H [id number] Pentahydrate [Fortaz] 1 gm Sodium Chloride 0.9% [Normal Saline] 50 ml IV Q12H 05/06/20 05:00 C-REACTIVE PROTEIN [CHEM] Timed CBC W/O DIFF,HEMOGRAM [HEME] Timed (1) COMPREHENSIVE METABOLIC PN,CMP [CHEM] Timed D-DIMER QUANTITATIVE [COAG] Timed PROCALCITONIN [CHEM] Routine - Plan Plan:: ASSESSMENT AND PLAN BILATERAL PNEUMONIA SECONDARY TO [id number] has completed a course of steroids and convalescent plasma. Volume status still appears appropriate. I did not get a good look at the IVC with the ultrasound today but otherwise her cardiac function looked good. X-ray looks worse today. She is requiring more oxygen and feels more short of breath today. Family was updated about the decline in her condition. -Saline lock IV -Assess volume status daily -Dose of furosemide today -Supplemental oxygen as needed, wean as able -Reinitiating noninvasive positive pressure ventilation today -Increase activity as tolerated with physical therapy -Inhalers as needed POSSIBLE BACTERIAL PNEUMONIA-sputum sample positive for group A streptococcus but blood cultures negative. Increasing infiltrates noted on chest x-ray. Respiratory status declining. -Broad-spectrum antibiotic coverage with doxycycline and ceftazidime -Follow-up cultures ACUTE DVT, left popliteal vein-noted with lower extremity ultrasound. -Continue apixaban -Treat for 3 months (end mid July) CHRONIC KIDNEY DISEASE STAGE III-renal function has improved dramatically during the course of the hospital stay and has remained stable. -Closely monitor urine output and renal function TYPE 2 DIABETES MELLITUS-blood sugars acceptable. -Continue usual dose of long-acting insulin -2 times daily glucometers MAINTENANCE ISSUES -DVT prophylaxis; apixaban -GI prophylaxis; not indicated -Nutrition; consistent carbohydrate diet DISPOSITION-anticipate discharge to home with home care versus halfway after the hospital stay. Reggie Altamirano MD
[2020-05-05] MEDS: Aspirin 81 MG Tab.Chew PO SCH (10:24)
[2020-05-05] MEDS: Lactobacillus Rhamnosus GG (Probiotic) Cap PO SCH ×2 (10:24→22:34)
[2020-05-05] MEDS: Apixaban 5 MG Tab PO SCH ×2 (10:25→22:34)
[2020-05-05] MEDS: Allopurinol 100 MG Tab PO SCH (10:25)
[2020-05-05] MEDS ORDERED: Furosemide 20 MG/2 ML VIAL IVPUSH ONE (10:30)
[2020-05-05] MEDS: Doxycycline 100 MG in Sodium Chloride 0.9% 100 ML IV SCH ×2 (11:04→23:23)
[2020-05-05] MEDS: Tamoxifen 10 MG Tab PO SCH (11:09)
[2020-05-05] MEDS: LORazepam 2 MG/ML SDV IVPUSH PRN ×4 (12:49→23:07)
[2020-05-05] MEDS: Gabapentin 100 MG Cap PO SCH (22:34)
[2020-05-05] MEDS: Insulin Glargine,Human Rec. Analog 100 Units/ML 3 ML Pen SUBCUT SCH (22:35)
[2020-05-06] MEDS: LORazepam 2 MG/ML SDV IVPUSH PRN ×3 (01:55→22:03)
[2020-05-06] MEDS: Sodium Chloride 0.65% Nasal Spray 45 ML Bottle NAS SCH ×5 (02:00→19:37)
[2020-05-06] MEDS: Aloe Vera/Sodium Chloride Gel 14.1 GM Tube NAS SCH ×4 (06:11→22:03)
[2020-05-06] MEDS: Lactobacillus Rhamnosus GG (Probiotic) Cap PO SCH ×2 (09:20→20:57)
[2020-05-06] MEDS: Aspirin 81 MG Tab.Chew PO SCH (09:20)
[2020-05-06] MEDS: Allopurinol 100 MG Tab PO SCH (09:20)
--- NOTE | 2020-05-06 10:03 | PCM.PN ---
- General Info Date of Service: 05/06/20 Subjective Update: No acute events overnight. She has rested fairly well with a little bit of help from lorazepam. She has been tolerating with the noninvasive ventilation. FiO2 was turned down to 65% this morning after a slight increase in her pressures. Vital signs have otherwise been stable. She is fairly sleepy this morning but is resting comfortably. She has not had any fevers. White blood cell count is slightly higher today but D-dimer has improved. Functional Status: Reports: Pain Controlled, Tolerating Diet - Review of Systems General: Reports: Weakness. Denies: Fever Pulmonary: Reports: Shortness of Breath - Patient Data Vitals - Most Recent: Last Vital Signs Temp 35.6 C L 05/06/20 08:00 Pulse 99 05/05/20 16:00 Resp 24 H 05/06/20 08:00 BP 122/50 L 05/06/20 08:00 Pulse Ox 91 L 05/06/20 08:00 Weight - Most Recent: 67.222 kg I&O - Last 24 Hours: Intake & Output 05/05/20 05/06/20 05/06/20 22:59 06:59 14:59 Intake Total 600 Balance 600 Lab Results Last 24 Hours: Laboratory Results - last 24 hr 05/06/20 05/06/20 05/06/20 Range/Units 05:40 05:40 05:40 WBC 11.3 H (4.5-11.0) K/uL RBC 3.25 L (3.30-5.50) M/uL Hgb 10.2 L (12.0-15.0) g/dL Hct 32.6 L (36.0-48.0) % MCV 100 H (80-98) fL MCH 31 (27-31) pg MCHC 31 L (32-36) % Plt Count 136 L (150-400) K/uL D-Dimer, Quantitative 961.07 H (0.0-500.0) ng/mL Sodium 137 L (140-148) mmol/L Potassium 4.1 (3.6-5.2) mmol/L Chloride 100 (100-108) mmol/L Carbon Dioxide 32 (21-32) mmol/L Anion Gap 9.1 (5.0-14.0) mmol/L BUN 29 H (7-18) mg/dL Creatinine 1.1 H (0.6-1.0) mg/dL Est Cr Clr Drug Dosing 32.63 mL/min Estimated GFR (MDRD) 47 L (>60) Glucose 65 L (74-106) mg/dL Calcium 8.9 (8.5-10.1) mg/dL Total Bilirubin 0.4 (0.2-1.0) mg/dL AST 35 (15-37) U/L ALT 21 (12-78) U/L Alkaline Phosphatase 61 (46-116) U/L C-Reactive Protein 11.04 H (0.0-0.3) mg/dL Total Protein 5.6 L (6.4-8.2) g/dL Albumin 1.3 L (3.4-5.0) g/dL Globulin 4.3 H (2.3-3.5) g/dL Albumin/Globulin Ratio 0.3 L (1.2-2.2) Procalcitonin ng/mL 05/06/20 Range/Units 05:40 WBC (4.5-11.0) K/uL RBC (3.30-5.50) M/uL Hgb (12.0-15.0) g/dL Hct (36.0-48.0) % MCV (80-98) fL MCH (27-31) pg MCHC (32-36) % Plt Count (150-400) K/uL D-Dimer, Quantitative (0.0-500.0) ng/mL Sodium (140-148) mmol/L Potassium (3.6-5.2) mmol/L Chloride (100-108) mmol/L Carbon Dioxide (21-32) mmol/L Anion Gap (5.0-14.0) mmol/L BUN (7-18) mg/dL Creatinine (0.6-1.0) mg/dL Est Cr Clr Drug Dosing mL/min Estimated GFR (MDRD) (>60) Glucose (74-106) mg/dL Calcium (8.5-10.1) mg/dL Total Bilirubin (0.2-1.0) mg/dL AST (15-37) U/L ALT (12-78) U/L Alkaline Phosphatase (46-116) U/L C-Reactive Protein (0.0-0.3) mg/dL Total Protein (6.4-8.2) g/dL Albumin (3.4-5.0) g/dL Globulin (2.3-3.5) g/dL Albumin/Globulin Ratio (1.2-2.2) Procalcitonin 0.47 ng/mL [place] Results Last 24 Hours: Microbiology 04/30/20 11:25 Aerobic Blood Culture - Final Blood - Arm, Left NO GROWTH AFTER 5 DAYS Anaerobic Blood Culture - Final NO GROWTH AFTER 5 DAYS 04/30/20 11:45 Aerobic Blood Culture - Final Blood - Venous NO GROWTH AFTER 5 DAYS Anaerobic Blood Culture - Final NO GROWTH AFTER 5 DAYS Med Orders - Current: Current Medications Acetaminophen (Tylenol) 650 mg PO Q4H PRN PRN Reason: Pain (Mild 1-3)/fever Last Admin: 04/29/20 05:58 Dose: 650 mg Documented by: Albuterol (Ventolin Hfa) 2 gm INH Q4H PRN PRN Reason: Shortness of Breath Last Admin: 04/21/20 19:08 Dose: 2 puff Documented by: Allopurinol (Zyloprim) 200 mg PO DAILY [facility] Last Admin: 05/06/20 09:20 Dose: Not Given Documented by: Apixaban (Eliquis) 5 mg PO BID [facility] Last Admin: 05/05/20 22:34 Dose: 5 mg Documented by: Aspirin (Aspirin) 81 mg PO DAILY [facility] Last Admin: 05/06/20 09:20 Dose: Not Given Documented by: Benzocaine/Menthol (Cepacol Sore Throat) 1 lozenge MUCMEM ASDIRECTED PRN PRN Reason: SORE THROAT Last Admin: 05/05/20 04:22 Dose: 1 lozenge Documented by: Dextrose (Glutose 15) 15 gm PO ONETIME PRN PRN Reason: Hypoglycemia Last Admin: 05/06/20 07:30 Dose: 15 gm Documented by: Dextrose/Water (Dextrose 50% In Water) 50 ml IV ONETIME PRN PRN Reason: Hypoglycemia Gabapentin (Neurontin) 100 mg PO BEDTIME [facility] Last Admin: 05/05/20 22:34 Dose: 100 mg Documented by: Doxycycline Hyclate 100 mg/ (Sodium Chloride) 100 mls @ 100 mls/hr IV Q12H [facility] Last Admin: 05/05/20 23:23 Dose: 100 mls/hr Documented by: Ceftazidime 1 gm/ Sodium (Chloride) 50 mls @ 100 mls/hr IV Q12H [facility] Last Admin: 05/05/20 22:34 Dose: 100 mls/hr Documented by: Insulin Glargine (Lantus Solostar) 20 units SUBCUT BEDTIME [facility] Lactobacillus Rhamnosus (Culturelle) 1 cap PO BID [facility] Last Admin: 05/06/20 09:20 Dose: Not Given Documented by: Lorazepam (Ativan) 0.5 mg IVPUSH Q2H PRN PRN Reason: Anxiety Last Admin: 05/06/20 04:24 Dose: 0.5 mg Documented by: Melatonin (Melatonin) 9 mg PO BEDTIME PRN PRN Reason: Insomnia Last Admin: 05/01/20 20:19 Dose: 9 mg Documented by: Ondansetron HCl (Zofran) 4 mg IV Q4H PRN PRN Reason: Nausea/Vomiting Oxycodone HCl (Oxycodone) 5 mg PO Q4H PRN PRN Reason: Pain Last Admin: 05/02/20 17:05 Dose: 5 mg Documented by: Polyethylene Glycol (Miralax) 17 gm PO DAILY PRN PRN Reason: Constipation Last Admin: 04/21/20 08:06 Dose: 17 gm Documented by: Sodium Chloride (Saline Flush) 10 ml FLUSH ASDIRECTED PRN PRN Reason: Keep Vein Open Last Admin: 04/15/20 09:45 Dose: 10 ml Documented by: Sodium Chloride ([place] Nasal Strawberry) 0 ml ABRAHAN Q4H [facility] Last Admin: 05/06/20 07:30 Dose: 1 sprays Documented by: Sodium Chloride ([place] Saline Nasal Gel) 0 gm ABRAHAN QID [facility] Last Admin: 05/06/20 09:21 Dose: 1 applic Documented by: Discontinued Medications Acetaminophen (Tylenol) 650 mg PO ONCALL ONE Stop: 04/13/20 16:31 Last Admin: 04/13/20 17:02 Dose: 650 mg Documented by: Acetaminophen (Tylenol) 650 mg PO ONCALL ONE Stop: 04/14/20 14:31 Last Admin: 04/14/20 15:56 Dose: 650 mg Documented by: Acetaminophen (Tylenol) 650 mg PO ONCALL ONE Stop: 04/15/20 10:31 Last Admin: 04/15/20 09:44 Dose: 650 mg Documented by: Acetaminophen (Tylenol) 650 mg PO ONCALL ONE Stop: 04/16/20 09:01 Last Admin: 04/16/20 09:28 Dose: 650 mg Documented by: Albuterol (Proventil Neb Soln) 2.5 mg NEB Q4H PRN PRN Reason: Shortness Of Breath/wheezing Last Admin: 04/15/20 20:23 Dose: 2.5 mg Documented by: Benzocaine/Menthol (Cepacol Sore Throat) 1 lozenge MUCMEM ASDIRECTED PRN PRN Reason: SORE THROAT Benzocaine/Menthol (Cepacol Sore Throat) Confirm Administered Dose 1 lozenge .ROUTE .STK-MED ONE Stop: 04/12/20 21:32 Last Admin: 04/12/20 22:57 Dose: Not Given Documented by: Bisacodyl (Dulcolax) 5 mg PO DAILY [facility] Last Admin: 04/21/20 11:06 Dose: 5 mg Documented by: Dexamethasone (Dexamethasone) 6 mg IVPUSH ONETIME ONE Stop: 04/11/20 17:50 Last Admin: 04/11/20 18:08 Dose: 6 mg Documented by: Dexamethasone (Dexamethasone) Confirm Administered Dose 4 mg .ROUTE .STK-MED ONE Stop: 04/11/20 18:01 Last Admin: 04/11/20 18:11 Dose: Not Given Documented by: Dexamethasone (Decadron) 6 mg IVPUSH Q24H [facility] Last Admin: 04/25/20 19:41 Dose: 6 mg Documented by: Diphenhydramine HCl (Benadryl) 25 mg IVPUSH ONCALL ONE Stop: 04/13/20 16:31 Last Admin: 04/13/20 17:02 Dose: 25 mg Documented by: Diphenhydramine HCl (Benadryl) 25 mg IVPUSH ONCALL ONE Stop: 04/14/20 14:31 Last Admin: 04/14/20 15:56 Dose: 25 mg Documented by: Diphenhydramine HCl (Benadryl) 25 mg PO ONCALL ONE Stop: 04/15/20 10:31 Last Admin: 04/15/20 09:46 Dose: 25 mg Documented by: Diphenhydramine HCl (Benadryl) 25 mg PO ONCALL ONE Stop: 04/16/20 09:01 Last Admin: 04/16/20 09:28 Dose: 25 mg Documented by: Enoxaparin Sodium (Lovenox) 30 mg SUBCUT DAILY [facility] Last Admin: 04/11/20 21:39 Dose: 30 mg Documented by: Enoxaparin Sodium (Lovenox) 30 mg SUBCUT BEDTIME [facility] Last Admin: 04/22/20 20:11 Dose: 30 mg Documented by: Enoxaparin Sodium (Lovenox) 70 mg SUBCUT Q24H [facility] Last Admin: 05/03/20 15:26 Dose: 70 mg Documented by: Furosemide (Lasix) 40 mg IVPUSH NOW ONE Stop: 04/16/20 12:01 Last Admin: 04/16/20 12:26 Dose: 40 mg Documented by: Furosemide (Lasix) 40 mg IV ONETIME ONE Stop: 04/22/20 12:01 Last Admin: 04/22/20 12:01 Dose: 40 mg Documented by: Furosemide (Lasix) 40 mg IVPUSH ONETIME ONE Stop: 04/22/20 21:16 Last Admin: 04/22/20 21:46 Dose: 40 mg Documented by: Furosemide (Lasix) 40 mg IVPUSH ONETIME ONE Stop: 04/24/20 18:17 Last Admin: 04/24/20 18:39 Dose: 40 mg Documented by: Furosemide (Lasix) 40 mg IVPUSH NOW ONE Stop: 04/28/20 17:16 Last Admin: 04/28/20 18:42 Dose: 40 mg Documented by: Furosemide (Lasix) 40 mg IVPUSH NOW ONE Stop: 04/29/20 08:31 Last Admin: 04/29/20 09:28 Dose: 40 mg Documented by: Furosemide (Lasix) 40 mg IVPUSH NOW ONE Stop: 05/01/20 08:41 Last Admin: 05/01/20 08:37 Dose: 40 mg Documented by: Furosemide (Lasix) 20 mg IVPUSH ONETIME ONE Stop: 05/05/20 10:31 Last Admin: 05/05/20 11:08 Dose: 20 mg Documented by: Sodium Chloride (Normal Saline) 1,000 mls @ 1,000 mls/hr IV ASDIRECTED [facility] Last Admin: 04/11/20 17:14 Dose: 1,000 mls/hr Documented by: Sodium Chloride (Normal Saline) 1,000 mls @ 50 mls/hr IV ASDIRECTED [facility] Last Admin: 04/11/20 22:32 Dose: 50 mls/hr Documented by: Sodium Chloride (Normal Saline) 250 mls @ 20 mls/hr IV ASDIRECTED [facility] Last Admin: 04/13/20 17:55 Dose: 20 mls/hr Documented by: Remdesivir 200 mg/ Sodium (Chloride) 250 mls @ 250 mls/hr IV ONETIME ONE Stop: 04/22/20 14:59 Last Admin: 04/22/20 14:23 Dose: 250 mls/hr Documented by: Remdesivir 100 mg/ Sodium (Chloride) 100 mls @ 100 mls/hr IV Q24H [facility] Stop: 04/26/20 14:59 Last Admin: 04/24/20 13:38 Dose: 100 mls/hr Documented by: Levofloxacin/Dextrose 750 mg/ (Premix) 150 mls @ 100 mls/hr IV Q48H [facility] Last Admin: 04/30/20 11:40 Dose: 100 mls/hr Documented by: Vancomycin HCl 1 gm/ Sodium (Chloride) 250 mls @ 166.667 mls/hr IV Q24H [facility] Last Admin: 05/01/20 13:26 Dose: 166.667 mls/hr Documented by: Meropenem 1 gm/ Sodium (Chloride) 100 mls @ 200 mls/hr IV Q12H [facility] Last Admin: 05/01/20 04:01 Dose: 200 mls/hr Documented by: Ceftriaxone Sodium 1 gm/ (Sodium Chloride) 50 mls @ 100 mls/hr IV Q24H [facility] Last Admin: 05/04/20 14:41 Dose: 100 mls/hr Documented by: Insulin Glargine (Lantus Solostar) 26 units SUBCUT BEDTIME [facility] Last Admin: 04/11/20 23:35 Dose: Not Given Documented by: Insulin Glargine (Lantus Solostar) 24 units SUBCUT BEDTIME [facility] Last Admin: 04/11/20 22:33 Dose: 24 units Documented by: Insulin Glargine (Lantus Solostar) 24 units SUBCUT BEDTIME [facility] Last Admin: 05/05/20 22:35 Dose: 24 units Documented by: Insulin Human Lispro (Humalog) 0 unit SUBCUT QIDACANDBED [facility]; Protocol Last Admin: 05/02/20 17:46 Dose: 2 units Documented by: Insulin Human Lispro (Humalog) 0 unit SUBCUT QIDACANDBED [facility]; Protocol Last Admin: 05/02/20 08:24 Dose: Not Given Documented by: Lorazepam (Ativan) 0.5 mg IVPUSH Q2H PRN PRN Reason: Anxiety Last Admin: 04/30/20 21:00 Dose: 0.5 mg Documented by: Magnesium Hydroxide (Milk Of Magnesia) 30 ml PO DAILY [facility] Last Admin: 04/21/20 11:06 Dose: 30 ml Documented by: Senna/Docusate Sodium (Senna Plus) 1 tab PO BID [facility] Last Admin: 04/21/20 11:06 Dose: 1 tab Documented by: Sodium Polystyrene Sulfonate (Kayexalate) 15 gm PO ONETIME ONE Stop: 04/22/20 10:01 Last Admin: 04/22/20 11:34 Dose: 15 gm Documented by: Tamoxifen Citrate (Nolvadex) 20 mg PO DAILY [facility] Last Admin: 05/05/20 11:09 Dose: Not Given Documented by: Vancomycin HCl (Vancomycin) 1 gm IV .PHARMACY TO DOSE [facility] Stop: 04/30/20 12:30 - Exam Quality Assessment: Supplemental Oxygen General: No Acute Distress, Lethargic. No: Alert Lungs: Normal Respiratory Effort, Crackles Cardiovascular: Regular Rate, Regular Rhythm GI/Abdominal Exam: Soft, No Distention Extremities: No Pedal Edema. No: Increased Warmth Skin: Warm, Dry Psy/Mental Status: No: Alert, Agitated Sepsis Event Note - Evaluation Sepsis Screening Result: No Definite Risk - Focused Exam Vital Signs: Vital Signs Temp Resp BP Pulse Ox 05/06/20 08:00 35.6 C L 24 H 122/50 L 91 L 05/06/20 06:00 35.5 C L 25 H 117/49 L 92 L 05/06/20 04:00 25 H 122/52 L 93 L 05/06/20 01:59 35.9 C L 24 H 05/06/20 00:00 24 H 122/50 L 92 L - Problem List Review Problem List Initiated/Reviewed/Updated: Yes - My Orders Last 24 Hours: My Active Orders 05/05/20 11:00 cefTAZidime Pentahydrate [Fortaz] 1 gm Sodium Chloride 0.9% [Normal Saline] 50 ml IV Q12H 05/05/20 11:45 LORazepam [Ativan] 0.5 mg IVPUSH Q2H PRN 05/05/20 12:00 Doxycycline [Vibramycin] 100 mg Sodium Chloride 0.9% [Normal Saline] 100 ml IV Q12H 05/05/20 17:34 Blood Glucose Check, Bedside [RC] BIDAC 05/06/20 21:00 Insulin Glarg,Human.Rec.Analog [LantUS Solostar] 20 units SUBCUT BEDTIME - Plan Plan:: ASSESSMENT AND PLAN BILATERAL PNEUMONIA SECONDARY TO [id number] has significant respiratory compromise and and had a recent decline. Seems to be a little better today with noninvasive ventilation and management as discussed below. Volume status appropriate today. -Trial of additional steroids -Assess volume status daily -Supplemental oxygen as needed, wean as able -Continue NIPPV as tolerated -Increase activity as tolerated with physical therapy -Inhalers as needed POSSIBLE BACTERIAL PNEUMONIA-increasing infiltrates noted on chest x-ray. Broad-spectrum antibiotics were initiated yesterday. Seems a little better today. -Broad-spectrum antibiotic coverage with doxycycline and ceftazidime -Follow-up cultures ACUTE DVT, left popliteal vein-noted with lower extremity ultrasound. -Continue apixaban -Treat for 3 months (end mid July) CHRONIC KIDNEY DISEASE STAGE III-renal function has improved dramatically during the course of the hospital stay and has remained stable. -Closely monitor urine output and renal function TYPE 2 DIABETES MELLITUS-blood sugar was a little low today. I am going to hold her long-acting insulin until she is eating better. -Continue usual dose of long-acting insulin -2 times daily glucometers MAINTENANCE ISSUES -DVT prophylaxis; apixaban -GI prophylaxis; not indicated -Nutrition; consistent carbohydrate diet DISPOSITION-anticipate discharge to home with home care versus shelter after the hospital stay if she survives the hospital stay . Reggie Altamirano MD
[2020-05-06] MEDS: Dexamethasone 4 MG/ML SDV IVPUSH SCH (10:54)
[2020-05-06] MEDS: Doxycycline 100 MG in Sodium Chloride 0.9% 100 ML IV SCH (11:59)
[2020-05-06] MEDS: Apixaban 5 MG Tab PO SCH ×2 (18:35→20:57)
[2020-05-06] MEDS: Gabapentin 100 MG Cap PO SCH (20:57)
[2020-05-07] MEDS: Sodium Chloride 0.65% Nasal Spray 45 ML Bottle NAS SCH ×7 (00:42→23:16)
[2020-05-07] MEDS: Doxycycline 100 MG in Sodium Chloride 0.9% 100 ML IV SCH ×2 (00:44→11:57)
[2020-05-07] MEDS: Melatonin 3 MG Tab PO PRN (01:16)
[2020-05-07] MEDS: Acetaminophen 325 MG Tab PO PRN (01:16)
[2020-05-07] MEDS: Aloe Vera/Sodium Chloride Gel 14.1 GM Tube NAS SCH ×4 (06:01→21:28)
--- NOTE | 2020-05-07 10:29 | PCM.PN ---
- General Info Date of Service: 05/07/20 Subjective Update: There were no acute events overnight. She has been off the noninvasive ventilation and on just nasal cannula since early this morning. Oxygenation is stable but borderline. She feels about the same as yesterday. Still weak and fatigued. Still short of breath. No cough or fever. Appetite has been moderate. Intake acceptable. Her son Ritchie and his are here visiting. The 4 of us talked about CODE STATUS after I talked to a critical care speciali in [place]. At this point I do not think there is much we can do beyond a trial of broad-spectrum antibiotics and may be some diuresis. The patient has elected to become DO NOT RESUSCITATE and DO NOT INTUBATE. Functional Status: Reports: Pain Controlled, Tolerating Diet - Review of Systems General: Reports: Weakness. Denies: Fever Pulmonary: Reports: Shortness of Breath - Patient Data Vitals - Most Recent: Last Vital Signs Temp 36.1 C 05/06/20 23:00 Pulse 96 05/07/20 05:00 Resp 23 H 05/07/20 05:00 BP 124/53 L 05/07/20 05:00 Pulse Ox 91 L 05/07/20 05:00 Weight - Most Recent: 67.222 kg I&O - Last 24 Hours: Intake & Output 05/06/20 05/07/20 05/07/20 22:59 06:59 14:59 Intake Total 440 1440 Balance 440 1440 Med Orders - Current: Current Medications Acetaminophen (Tylenol) 650 mg PO Q4H PRN PRN Reason: Pain (Mild 1-3)/fever Last Admin: 05/07/20 01:16 Dose: 650 mg Documented by: Albuterol (Ventolin Hfa) 2 gm INH Q4H PRN PRN Reason: Shortness of Breath Last Admin: 04/21/20 19:08 Dose: 2 puff Documented by: Allopurinol (Zyloprim) 200 mg PO DAILY [facility] Last Admin: 05/06/20 09:20 Dose: Not Given Documented by: Apixaban (Eliquis) 5 mg PO BID [facility] Last Admin: 05/06/20 20:57 Dose: 5 mg Documented by: Aspirin (Aspirin) 81 mg PO DAILY [facility] Last Admin: 05/06/20 09:20 Dose: Not Given Documented by: Benzocaine/Menthol (Cepacol Sore Throat) 1 lozenge MUCMEM ASDIRECTED PRN PRN Reason: SORE THROAT Last Admin: 05/05/20 04:22 Dose: 1 lozenge Documented by: Dexamethasone (Decadron) 6 mg IVPUSH Q24H [facility] Stop: 05/10/20 11:01 Last Admin: 05/06/20 10:54 Dose: 6 mg Documented by: Dextrose (Glutose 15) 15 gm PO ONETIME PRN PRN Reason: Hypoglycemia Last Admin: 05/06/20 07:30 Dose: 15 gm Documented by: Dextrose/Water (Dextrose 50% In Water) 50 ml IV ONETIME PRN PRN Reason: Hypoglycemia Furosemide (Lasix) 40 mg IV ONETIME ONE Stop: 05/07/20 10:31 Gabapentin (Neurontin) 100 mg PO BEDTIME [facility] Last Admin: 05/06/20 20:57 Dose: 100 mg Documented by: Doxycycline Hyclate 100 mg/ (Sodium Chloride) 100 mls @ 100 mls/hr IV Q12H [facility] Last Admin: 05/07/20 00:44 Dose: 100 mls/hr Documented by: Ceftazidime 1 gm/ Sodium (Chloride) 50 mls @ 100 mls/hr IV Q12H [facility] Last Admin: 05/07/20 00:42 Dose: 100 mls/hr Documented by: Insulin Glargine (Lantus Solostar) 20 units SUBCUT BEDTIME [facility] Insulin Human Lispro (Humalog) 0 unit SUBCUT QIDACANDBED [facility]; Protocol Lactobacillus Rhamnosus (Culturelle) 1 cap PO BID [facility] Last Admin: 05/06/20 20:57 Dose: 1 cap Documented by: Lorazepam (Ativan) 0.5 mg IVPUSH Q2H PRN PRN Reason: Anxiety Last Admin: 05/06/20 22:03 Dose: 0.5 mg Documented by: Melatonin (Melatonin) 9 mg PO BEDTIME PRN PRN Reason: Insomnia Last Admin: 05/07/20 01:16 Dose: 9 mg Documented by: Ondansetron HCl (Zofran) 4 mg IV Q4H PRN PRN Reason: Nausea/Vomiting Oxycodone HCl (Oxycodone) 5 mg PO Q4H PRN PRN Reason: Pain Last Admin: 05/02/20 17:05 Dose: 5 mg Documented by: Polyethylene Glycol (Miralax) 17 gm PO DAILY PRN PRN Reason: Constipation Last Admin: 04/21/20 08:06 Dose: 17 gm Documented by: Sodium Chloride (Saline Flush) 10 ml FLUSH ASDIRECTED PRN PRN Reason: Keep Vein Open Last Admin: 04/15/20 09:45 Dose: 10 ml Documented by: Sodium Chloride ([place] Nasal [place]) 0 ml ABRAHAN Q4H NABILA Last Admin: 05/07/20 06:32 Dose: 1 sprays Documented by: Sodium Chloride ([place] Saline Nasal Gel) 0 gm ABRAHAN QID NABILA Last Admin: 05/07/20 06:01 Dose: 1 applic Documented by: Discontinued Medications Acetaminophen (Tylenol) 650 mg PO ONCALL ONE Stop: 04/13/20 16:31 Last Admin: 04/13/20 17:02 Dose: 650 mg Documented by: Acetaminophen (Tylenol) 650 mg PO ONCALL ONE Stop: 04/14/20 14:31 Last Admin: 04/14/20 15:56 Dose: 650 mg Documented by: Acetaminophen (Tylenol) 650 mg PO ONCALL ONE Stop: 04/15/20 10:31 Last Admin: 04/15/20 09:44 Dose: 650 mg Documented by: Acetaminophen (Tylenol) 650 mg PO ONCALL ONE Stop: 04/16/20 09:01 Last Admin: 04/16/20 09:28 Dose: 650 mg Documented by: Albuterol (Proventil Neb Soln) 2.5 mg NEB Q4H PRN PRN Reason: Shortness Of Breath/wheezing Last Admin: 04/15/20 20:23 Dose: 2.5 mg Documented by: Benzocaine/Menthol (Cepacol Sore Throat) 1 lozenge MUCMEM ASDIRECTED PRN PRN Reason: SORE THROAT Benzocaine/Menthol (Cepacol Sore Throat) Confirm Administered Dose 1 lozenge .ROUTE .STK-MED ONE Stop: 04/12/20 21:32 Last Admin: 04/12/20 22:57 Dose: Not Given Documented by: Bisacodyl (Dulcolax) 5 mg PO DAILY [facility] Last Admin: 04/21/20 11:06 Dose: 5 mg Documented by: Dexamethasone (Dexamethasone) 6 mg IVPUSH ONETIME ONE Stop: 04/11/20 17:50 Last Admin: 04/11/20 18:08 Dose: 6 mg Documented by: Dexamethasone (Dexamethasone) Confirm Administered Dose 4 mg .ROUTE .STK-MED ONE Stop: 04/11/20 18:01 Last Admin: 04/11/20 18:11 Dose: Not Given Documented by: Dexamethasone (Decadron) 6 mg IVPUSH Q24H [facility] Last Admin: 04/25/20 19:41 Dose: 6 mg Documented by: Diphenhydramine HCl (Benadryl) 25 mg IVPUSH ONCALL ONE Stop: 04/13/20 16:31 Last Admin: 04/13/20 17:02 Dose: 25 mg Documented by: Diphenhydramine HCl (Benadryl) 25 mg IVPUSH ONCALL ONE Stop: 04/14/20 14:31 Last Admin: 04/14/20 15:56 Dose: 25 mg Documented by: Diphenhydramine HCl (Benadryl) 25 mg PO ONCALL ONE Stop: 04/15/20 10:31 Last Admin: 04/15/20 09:46 Dose: 25 mg Documented by: Diphenhydramine HCl (Benadryl) 25 mg PO ONCALL ONE Stop: 04/16/20 09:01 Last Admin: 04/16/20 09:28 Dose: 25 mg Documented by: Enoxaparin Sodium (Lovenox) 30 mg SUBCUT DAILY [facility] Last Admin: 04/11/20 21:39 Dose: 30 mg Documented by: Enoxaparin Sodium (Lovenox) 30 mg SUBCUT BEDTIME [facility] Last Admin: 04/22/20 20:11 Dose: 30 mg Documented by: Enoxaparin Sodium (Lovenox) 70 mg SUBCUT Q24H [facility] Last Admin: 05/03/20 15:26 Dose: 70 mg Documented by: Furosemide (Lasix) 40 mg IVPUSH NOW ONE Stop: 04/16/20 12:01 Last Admin: 04/16/20 12:26 Dose: 40 mg Documented by: Furosemide (Lasix) 40 mg IV ONETIME ONE Stop: 04/22/20 12:01 Last Admin: 04/22/20 12:01 Dose: 40 mg Documented by: Furosemide (Lasix) 40 mg IVPUSH ONETIME ONE Stop: 04/22/20 21:16 Last Admin: 04/22/20 21:46 Dose: 40 mg Documented by: Furosemide (Lasix) 40 mg IVPUSH ONETIME ONE Stop: 04/24/20 18:17 Last Admin: 04/24/20 18:39 Dose: 40 mg Documented by: Furosemide (Lasix) 40 mg IVPUSH NOW ONE Stop: 04/28/20 17:16 Last Admin: 04/28/20 18:42 Dose: 40 mg Documented by: Furosemide (Lasix) 40 mg IVPUSH NOW ONE Stop: 04/29/20 08:31 Last Admin: 04/29/20 09:28 Dose: 40 mg Documented by: Furosemide (Lasix) 40 mg IVPUSH NOW ONE Stop: 05/01/20 08:41 Last Admin: 05/01/20 08:37 Dose: 40 mg Documented by: Furosemide (Lasix) 20 mg IVPUSH ONETIME ONE Stop: 05/05/20 10:31 Last Admin: 05/05/20 11:08 Dose: 20 mg Documented by: Sodium Chloride (Normal Saline) 1,000 mls @ 1,000 mls/hr IV ASDIRECTED [facility] Last Admin: 04/11/20 17:14 Dose: 1,000 mls/hr Documented by: Sodium Chloride (Normal Saline) 1,000 mls @ 50 mls/hr IV ASDIRECTED [facility] Last Admin: 04/11/20 22:32 Dose: 50 mls/hr Documented by: Sodium Chloride (Normal Saline) 250 mls @ 20 mls/hr IV ASDIRECTED [facility] Last Admin: 04/13/20 17:55 Dose: 20 mls/hr Documented by: Remdesivir 200 mg/ Sodium (Chloride) 250 mls @ 250 mls/hr IV ONETIME ONE Stop: 04/22/20 14:59 Last Admin: 04/22/20 14:23 Dose: 250 mls/hr Documented by: Remdesivir 100 mg/ Sodium (Chloride) 100 mls @ 100 mls/hr IV Q24H [facility] Stop: 04/26/20 14:59 Last Admin: 04/24/20 13:38 Dose: 100 mls/hr Documented by: Levofloxacin/Dextrose 750 mg/ (Premix) 150 mls @ 100 mls/hr IV Q48H [facility] Last Admin: 04/30/20 11:40 Dose: 100 mls/hr Documented by: Vancomycin HCl 1 gm/ Sodium (Chloride) 250 mls @ 166.667 mls/hr IV Q24H [facility] Last Admin: 05/01/20 13:26 Dose: 166.667 mls/hr Documented by: Meropenem 1 gm/ Sodium (Chloride) 100 mls @ 200 mls/hr IV Q12H [facility] Last Admin: 05/01/20 04:01 Dose: 200 mls/hr Documented by: Ceftriaxone Sodium 1 gm/ (Sodium Chloride) 50 mls @ 100 mls/hr IV Q24H [facility] Last Admin: 05/04/20 14:41 Dose: 100 mls/hr Documented by: Insulin Glargine (Lantus Solostar) 26 units SUBCUT BEDTIME [facility] Last Admin: 04/11/20 23:35 Dose: Not Given Documented by: Insulin Glargine (Lantus Solostar) 24 units SUBCUT BEDTIME [facility] Last Admin: 04/11/20 22:33 Dose: 24 units Documented by: Insulin Glargine (Lantus Solostar) 24 units SUBCUT BEDTIME [facility] Last Admin: 05/05/20 22:35 Dose: 24 units Documented by: Insulin Human Lispro (Humalog) 0 unit SUBCUT QIDACANDBED [facility]; Protocol Last Admin: 05/02/20 17:46 Dose: 2 units Documented by: Insulin Human Lispro (Humalog) 0 unit SUBCUT QIDACANDBED [facility]; Protocol Last Admin: 05/02/20 08:24 Dose: Not Given Documented by: Lorazepam (Ativan) 0.5 mg IVPUSH Q2H PRN PRN Reason: Anxiety Last Admin: 04/30/20 21:00 Dose: 0.5 mg Documented by: Magnesium Hydroxide (Milk Of Magnesia) 30 ml PO DAILY [facility] Last Admin: 04/21/20 11:06 Dose: 30 ml Documented by: Senna/Docusate Sodium (Senna Plus) 1 tab PO BID [facility] Last Admin: 04/21/20 11:06 Dose: 1 tab Documented by: Sodium Polystyrene Sulfonate (Kayexalate) 15 gm PO ONETIME ONE Stop: 04/22/20 10:01 Last Admin: 04/22/20 11:34 Dose: 15 gm Documented by: Tamoxifen Citrate (Nolvadex) 20 mg PO DAILY [facility] Last Admin: 05/05/20 11:09 Dose: Not Given Documented by: Vancomycin HCl (Vancomycin) 1 gm IV .PHARMACY TO DOSE NABILA Stop: 04/30/20 12:30 - Exam Quality Assessment: Supplemental Oxygen General: Alert, Oriented, Cooperative, No Acute Distress Neck: JVD (very mild ) Lungs: Normal Respiratory Effort, Crackles (moderate diffuse) Cardiovascular: Regular Rhythm, Tachycardia. No: Gallops GI/Abdominal Exam: Normal Bowel Sounds, Soft, No Distention Extremities: Pedal Edema (trace bilateral ankle edema). No: Increased Warmth Skin: Warm, Dry Psy/Mental Status: Alert, Normal Affect Sepsis Event Note - Evaluation Sepsis Screening Result: Sepsis Risk - Focused Exam Vital Signs: Vital Signs Temp Pulse Resp BP Pulse Ox 05/07/20 05:00 96 23 H 124/53 L 91 L 05/07/20 03:00 105 H 22 H 134/56 L 89 L 05/07/20 01:00 102 H 21 H 122/58 L 89 L 05/06/20 23:00 36.1 C 100 26 H 113/50 L 91 L - Problem List Review Problem List Initiated/Reviewed/Updated: Yes - My Orders Last 24 Hours: My Active Orders 05/06/20 11:00 dexAMETHasone [Decadron] 6 mg IVPUSH Q24H 05/06/20 21:00 Insulin Glarg,Human.Rec.Analog [LantUS Solostar] 20 units SUBCUT BEDTIME 05/07/20 08:17 Communication Order [RC] PRN Communication Order [RC] PRN 05/07/20 08:20 Insulin Lispro [HumaLOG] See Protocol SUBCUT QIDACANDBED 05/07/20 10:27 RT Aerosol Therapy [RC] ASDIRECTED 05/07/20 10:30 Furosemide [Lasix] 40 mg IV ONETIME ONE 05/07/20 11:00 Albuterol [Proventil Neb Soln] 2.5 mg NEB QIDRT 05/08/20 05:00 BASIC METABOLIC PANEL,BMP [CHEM] Timed - Plan Plan:: ASSESSMENT AND PLAN BILATERAL PNEUMONIA SECONDARY TO [id number] has significant respiratory compromise without any significant or lasting improvement since hospital admission. Still intermittently requiring NIPPV. Mild evidence to possibly support bacterial superinfection. Trying another round of steroids but prognosis is very grim. Patient is agreeable to DNR/DNI. -Trial of additional steroids -Assess volume status daily, giving dose of furosemide today -Supplemental oxygen as needed, wean as able -Continue NIPPV as tolerated -Increase activity as tolerated with physical therapy -Inhalers as needed POSSIBLE BACTERIAL PNEUMONIA-increasing infiltrates noted on chest x-ray. Broad-spectrum antibiotics were initiated and will be broadened even further today. Cultures negative so far. -Antibiotic coverage with levofloxacin, ceftazidime and vancomycin -Scheduled nebulizers -Follow-up cultures ACUTE DVT, left popliteal vein-noted with lower extremity ultrasound. -Continue apixaban -Treat for 3 months (end mid July) CHRONIC KIDNEY DISEASE STAGE III-stable for the past week. -Closely monitor urine output and renal function TYPE 2 DIABETES MELLITUS-blood sugar was quite high this morning after steroids were started. -Continue usual dose of long-acting insulin -High-dose sliding scale insulin today -4 times daily glucometers MAINTENANCE ISSUES -DVT prophylaxis; apixaban -GI prophylaxis; not indicated -Nutrition; consistent carbohydrate diet DISPOSITION-anticipate discharge to home with home care versus [facility] after the hospital stay if she survives the hospital stay. Reggie Altamirano MD
[2020-05-07] MEDS ORDERED: Furosemide 40 MG/4 ML VIAL IV ONE (10:30)
[2020-05-07] MEDS: Lactobacillus Rhamnosus GG (Probiotic) Cap PO SCH ×2 (10:44→20:24)
[2020-05-07] MEDS: Aspirin 81 MG Tab.Chew PO SCH (10:44)
[2020-05-07] MEDS: Apixaban 5 MG Tab PO SCH ×2 (10:44→20:24)
[2020-05-07] MEDS: Allopurinol 100 MG Tab PO SCH (10:44)
[2020-05-07] MEDS: Albuterol 0.083% 2.5 MG/3 ML Neb Soln NEB SCH ×3 (11:00→20:22)
[2020-05-07] MEDS: Insulin Lispro 100 Unit/ML 3 ML KwikPen SUBCUT SCH ×4 (11:19→20:20)
[2020-05-07] MEDS: Dexamethasone 4 MG/ML SDV IVPUSH SCH (11:27)
[2020-05-07] MEDS: oxyCODONE 5 MG Tab PO PRN (15:04)
[2020-05-07] MEDS ORDERED: Vancomycin 1.4 GM in Sodium Chloride 0.9% 250 ML IV ONE (16:00)
[2020-05-07] MEDS: Levofloxacin/Dextrose 5%-Water 750 MG in Premix Bag 1 BAG IV SCH (17:42)
[2020-05-07] MEDS: Gabapentin 100 MG Cap PO SCH (20:24)
[2020-05-07] MEDS: Insulin Glargine,Human Rec. Analog 100 Units/ML 3 ML Pen SUBCUT SCH (21:27)
[2020-05-08] MEDS: Sodium Chloride 0.65% Nasal Spray 45 ML Bottle NAS SCH ×6 (02:58→22:19)
[2020-05-08] MEDS: Aloe Vera/Sodium Chloride Gel 14.1 GM Tube NAS SCH ×4 (06:20→21:06)
[2020-05-08] MEDS: Albuterol 0.083% 2.5 MG/3 ML Neb Soln NEB SCH ×4 (07:22→21:05)
[2020-05-08] MEDS: Insulin Lispro 100 Unit/ML 3 ML KwikPen SUBCUT SCH ×4 (07:54→21:03)
[2020-05-08] MEDS ORDERED: Furosemide 40 MG/4 ML VIAL IVPUSH SCH (09:00)
--- NOTE | 2020-05-08 09:53 | PCM.PN ---
- General Info Date of Service: 05/08/20 Subjective Update: No acute events overnight. Respiratory status had been stable and she had been on 15 L of supplemental oxygen via high flow nasal cannula. This morning she did have a slight increase in her supplemental oxygen requirement. She feels about the same as yesterday. Still short of breath, especially with any activity. She appears to be a little short of breath even with rest today. Moderate response to diuresis yesterday and again this morning. Creatinine level is slightly higher today suggesting we probably will not be able to push diuresis very hard. No abdominal pain or nausea. No chest pain. Resting comfortably for the most part but very weak and fatigued. Functional Status: Reports: Pain Controlled, Tolerating Diet - Review of Systems General: Reports: Weakness. Denies: Fever Pulmonary: Reports: Shortness of Breath - Patient Data Vitals - Most Recent: Last Vital Signs Temp 35.4 C L 05/08/20 07:00 Pulse 90 05/08/20 07:24 Resp 26 H 05/08/20 07:00 BP 124/62 05/08/20 07:00 Pulse Ox 91 L 05/08/20 07:00 Weight - Most Recent: 70.261 kg I&O - Last 24 Hours: Intake & Output 05/07/20 05/08/20 05/08/20 22:59 06:59 14:59 Intake Total 1260 50 Balance 1260 50 Lab Results Last 24 Hours: Laboratory Results - last 24 hr 05/08/20 Range/Units 05:40 Sodium 133 L (140-148) mmol/L Potassium 4.4 (3.6-5.2) mmol/L Chloride 98 L (100-108) mmol/L Carbon Dioxide 28 (21-32) mmol/L Anion Gap 11.4 (5.0-14.0) mmol/L BUN 50 H D (7-18) mg/dL Creatinine 1.3 H (0.6-1.0) mg/dL Est Cr Clr Drug Dosing 27.61 mL/min Estimated GFR (MDRD) 39 L (>60) Glucose 224 H (74-106) mg/dL Calcium 9.0 (8.5-10.1) mg/dL Med Orders - Current: Current Medications Acetaminophen (Tylenol) 650 mg PO Q4H PRN PRN Reason: Pain (Mild 1-3)/fever Last Admin: 11/21/20 01:16 Dose: 650 mg Documented by: Albuterol (Ventolin Hfa) 2 gm INH Q4H PRN PRN Reason: Shortness of Breath Last Admin: 04/21/20 19:08 Dose: 2 puff Documented by: Albuterol (Proventil Neb Soln) 2.5 mg NEB QIDRT [facility] Last Admin: 05/08/20 07:22 Dose: 2.5 mg Documented by: Allopurinol (Zyloprim) 200 mg PO DAILY [facility] Last Admin: 05/07/20 10:44 Dose: 200 mg Documented by: Apixaban (Eliquis) 5 mg PO BID [facility] Last Admin: 05/07/20 20:24 Dose: 5 mg Documented by: Aspirin (Aspirin) 81 mg PO DAILY [facility] Last Admin: 05/07/20 10:44 Dose: 81 mg Documented by: Benzocaine/Menthol (Cepacol Sore Throat) 1 lozenge MUCMEM ASDIRECTED PRN PRN Reason: SORE THROAT Last Admin: 05/05/20 04:22 Dose: 1 lozenge Documented by: Dexamethasone (Decadron) 6 mg IVPUSH Q24H [facility] Stop: 05/10/20 11:01 Last Admin: 05/07/20 11:27 Dose: 6 mg Documented by: Dextrose (Glutose 15) 15 gm PO ONETIME PRN PRN Reason: Hypoglycemia Last Admin: 05/06/20 07:30 Dose: 15 gm Documented by: Dextrose/Water (Dextrose 50% In Water) 50 ml IV ONETIME PRN PRN Reason: Hypoglycemia Gabapentin (Neurontin) 100 mg PO BEDTIME [facility] Last Admin: 05/07/20 20:24 Dose: 100 mg Documented by: Ceftazidime 1 gm/ Sodium (Chloride) 50 mls @ 100 mls/hr IV Q12H [facility] Last Admin: 05/07/20 23:16 Dose: 100 mls/hr Documented by: Levofloxacin/Dextrose 750 mg/ (Premix) 150 mls @ 100 mls/hr IV Q48H [facility] Last Admin: 05/07/20 17:42 Dose: 100 mls/hr Documented by: Vancomycin HCl 1 gm/ Sodium (Chloride) 250 mls @ 166.667 mls/hr IV Q24H [facility] Insulin Glargine (Lantus Solostar) 20 units SUBCUT BEDTIME [facility] Last Admin: 05/07/20 21:27 Dose: 20 unit Documented by: Insulin Human Lispro (Humalog) 0 unit SUBCUT QIDACANDBED [facility]; Protocol Last Admin: 05/08/20 07:54 Dose: 6 units Documented by: Lactobacillus Rhamnosus (Culturelle) 1 cap PO BID [facility] Last Admin: 05/07/20 20:24 Dose: 1 cap Documented by: Lorazepam (Ativan) 0.5 mg IVPUSH Q2H PRN PRN Reason: Anxiety Last Admin: 05/06/20 22:03 Dose: 0.5 mg Documented by: Melatonin (Melatonin) 9 mg PO BEDTIME PRN PRN Reason: Insomnia Last Admin: 05/07/20 01:16 Dose: 9 mg Documented by: Ondansetron HCl (Zofran) 4 mg IV Q4H PRN PRN Reason: Nausea/Vomiting Oxycodone HCl (Oxycodone) 5 mg PO Q4H PRN PRN Reason: Pain Last Admin: 05/02/20 17:05 Dose: 5 mg Documented by: Polyethylene Glycol (Miralax) 17 gm PO DAILY PRN PRN Reason: Constipation Last Admin: 04/21/20 08:06 Dose: 17 gm Documented by: Sodium Chloride (Saline Flush) 10 ml FLUSH ASDIRECTED PRN PRN Reason: Keep Vein Open Last Admin: 04/15/20 09:45 Dose: 10 ml Documented by: Sodium Chloride ([place] Nasal [place]) 0 ml ABRAHAN Q4H [facility] Last Admin: 05/08/20 07:58 Dose: 1 sprays Documented by: Sodium Chloride ([place] Saline Nasal Gel) 0 gm ABRAHAN QID [facility] Last Admin: 05/08/20 06:20 Dose: 1 applic Documented by: Discontinued Medications Acetaminophen (Tylenol) 650 mg PO ONCALL ONE Stop: 04/13/20 16:31 Last Admin: 04/13/20 17:02 Dose: 650 mg Documented by: Acetaminophen (Tylenol) 650 mg PO ONCALL ONE Stop: 04/14/20 14:31 Last Admin: 04/14/20 15:56 Dose: 650 mg Documented by: Acetaminophen (Tylenol) 650 mg PO ONCALL ONE Stop: 04/15/20 10:31 Last Admin: 04/15/20 09:44 Dose: 650 mg Documented by: Acetaminophen (Tylenol) 650 mg PO ONCALL ONE Stop: 04/16/20 09:01 Last Admin: 04/16/20 09:28 Dose: 650 mg Documented by: Albuterol (Proventil Neb Soln) 2.5 mg NEB Q4H PRN PRN Reason: Shortness Of Breath/wheezing Last Admin: 04/15/20 20:23 Dose: 2.5 mg Documented by: Benzocaine/Menthol (Cepacol Sore Throat) 1 lozenge MUCMEM ASDIRECTED PRN PRN Reason: SORE THROAT Benzocaine/Menthol (Cepacol Sore Throat) Confirm Administered Dose 1 lozenge .ROUTE .STK-MED ONE Stop: 04/12/20 21:32 Last Admin: 04/12/20 22:57 Dose: Not Given Documented by: Bisacodyl (Dulcolax) 5 mg PO DAILY [facility] Last Admin: 04/21/20 11:06 Dose: 5 mg Documented by: Dexamethasone (Dexamethasone) 6 mg IVPUSH ONETIME ONE Stop: 04/11/20 17:50 Last Admin: 04/11/20 18:08 Dose: 6 mg Documented by: Dexamethasone (Dexamethasone) Confirm Administered Dose 4 mg .ROUTE .STK-MED ONE Stop: 04/11/20 18:01 Last Admin: 04/11/20 18:11 Dose: Not Given Documented by: Dexamethasone (Decadron) 6 mg IVPUSH Q24H [facility] Last Admin: 04/25/20 19:41 Dose: 6 mg Documented by: Diphenhydramine HCl (Benadryl) 25 mg IVPUSH ONCALL ONE Stop: 04/13/20 16:31 Last Admin: 04/13/20 17:02 Dose: 25 mg Documented by: Diphenhydramine HCl (Benadryl) 25 mg IVPUSH ONCALL ONE Stop: 04/14/20 14:31 Last Admin: 04/14/20 15:56 Dose: 25 mg Documented by: Diphenhydramine HCl (Benadryl) 25 mg PO ONCALL ONE Stop: 04/15/20 10:31 Last Admin: 04/15/20 09:46 Dose: 25 mg Documented by: Diphenhydramine HCl (Benadryl) 25 mg PO ONCALL ONE Stop: 04/16/20 09:01 Last Admin: 04/16/20 09:28 Dose: 25 mg Documented by: Enoxaparin Sodium (Lovenox) 30 mg SUBCUT DAILY [facility] Last Admin: 04/11/20 21:39 Dose: 30 mg Documented by: Enoxaparin Sodium (Lovenox) 30 mg SUBCUT BEDTIME [facility] Last Admin: 04/22/20 20:11 Dose: 30 mg Documented by: Enoxaparin Sodium (Lovenox) 70 mg SUBCUT Q24H [facility] Last Admin: 05/03/20 15:26 Dose: 70 mg Documented by: Furosemide (Lasix) 40 mg IVPUSH NOW ONE Stop: 04/16/20 12:01 Last Admin: 04/16/20 12:26 Dose: 40 mg Documented by: Furosemide (Lasix) 40 mg IV ONETIME ONE Stop: 04/22/20 12:01 Last Admin: 04/22/20 12:01 Dose: 40 mg Documented by: Furosemide (Lasix) 40 mg IVPUSH ONETIME ONE Stop: 04/22/20 21:16 Last Admin: 04/22/20 21:46 Dose: 40 mg Documented by: Furosemide (Lasix) 40 mg IVPUSH ONETIME ONE Stop: 04/24/20 18:17 Last Admin: 04/24/20 18:39 Dose: 40 mg Documented by: Furosemide (Lasix) 40 mg IVPUSH NOW ONE Stop: 04/28/20 17:16 Last Admin: 04/28/20 18:42 Dose: 40 mg Documented by: Furosemide (Lasix) 40 mg IVPUSH NOW ONE Stop: 04/29/20 08:31 Last Admin: 04/29/20 09:28 Dose: 40 mg Documented by: Furosemide (Lasix) 40 mg IVPUSH NOW ONE Stop: 05/01/20 08:41 Last Admin: 05/01/20 08:37 Dose: 40 mg Documented by: Furosemide (Lasix) 20 mg IVPUSH ONETIME ONE Stop: 05/05/20 10:31 Last Admin: 05/05/20 11:08 Dose: 20 mg Documented by: Furosemide (Lasix) 40 mg IV ONETIME ONE Stop: 05/07/20 10:31 Last Admin: 05/07/20 10:45 Dose: 40 mg Documented by: Furosemide (Lasix) 40 mg IVPUSH DAILY [facility] Stop: 05/08/20 09:01 Sodium Chloride (Normal Saline) 1,000 mls @ 1,000 mls/hr IV ASDIRECTED [facility] Last Admin: 04/11/20 17:14 Dose: 1,000 mls/hr Documented by: Sodium Chloride (Normal Saline) 1,000 mls @ 50 mls/hr IV ASDIRECTED [facility] Last Admin: 04/11/20 22:32 Dose: 50 mls/hr Documented by: Sodium Chloride (Normal Saline) 250 mls @ 20 mls/hr IV ASDIRECTED [facility] Last Admin: 04/13/20 17:55 Dose: 20 mls/hr Documented by: Remdesivir 200 mg/ Sodium (Chloride) 250 mls @ 250 mls/hr IV ONETIME ONE Stop: 04/22/20 14:59 Last Admin: 04/22/20 14:23 Dose: 250 mls/hr Documented by: Remdesivir 100 mg/ Sodium (Chloride) 100 mls @ 100 mls/hr IV Q24H [facility] Stop: 04/26/20 14:59 Last Admin: 04/24/20 13:38 Dose: 100 mls/hr Documented by: Levofloxacin/Dextrose 750 mg/ (Premix) 150 mls @ 100 mls/hr IV Q48H [facility] Last Admin: 04/30/20 11:40 Dose: 100 mls/hr Documented by: Vancomycin HCl 1 gm/ Sodium (Chloride) 250 mls @ 166.667 mls/hr IV Q24H [facility] Last Admin: 05/01/20 13:26 Dose: 166.667 mls/hr Documented by: Meropenem 1 gm/ Sodium (Chloride) 100 mls @ 200 mls/hr IV Q12H [facility] Last Admin: 05/01/20 04:01 Dose: 200 mls/hr Documented by: Ceftriaxone Sodium 1 gm/ (Sodium Chloride) 50 mls @ 100 mls/hr IV Q24H [facility] Last Admin: 05/04/20 14:41 Dose: 100 mls/hr Documented by: Doxycycline Hyclate 100 mg/ (Sodium Chloride) 100 mls @ 100 mls/hr IV Q12H [facility] Last Admin: 05/07/20 11:57 Dose: 100 mls/hr Documented by: Vancomycin HCl 1.4 gm/ Sodium (Chloride) 250 mls @ 150 mls/hr IV ONETIME ONE Stop: 05/07/20 17:39 Last Admin: 05/07/20 15:25 Dose: 150 mls/hr Documented by: Insulin Glargine (Lantus Solostar) 26 units SUBCUT BEDTIME [facility] Last Admin: 04/11/20 23:35 Dose: Not Given Documented by: Insulin Glargine (Lantus Solostar) 24 units SUBCUT BEDTIME [facility] Last Admin: 04/11/20 22:33 Dose: 24 units Documented by: Insulin Glargine (Lantus Solostar) 24 units SUBCUT BEDTIME [facility] Last Admin: 05/05/20 22:35 Dose: 24 units Documented by: Insulin Human Lispro (Humalog) 0 unit SUBCUT QIDACANDBED [facility]; Protocol Last Admin: 05/02/20 17:46 Dose: 2 units Documented by: Insulin Human Lispro (Humalog) 0 unit SUBCUT QIDACANDBED [facility]; Protocol Last Admin: 05/02/20 08:24 Dose: Not Given Documented by: Lorazepam (Ativan) 0.5 mg IVPUSH Q2H PRN PRN Reason: Anxiety Last Admin: 04/30/20 21:00 Dose: 0.5 mg Documented by: Magnesium Hydroxide (Milk Of Magnesia) 30 ml PO DAILY [facility] Last Admin: 04/21/20 11:06 Dose: 30 ml Documented by: Senna/Docusate Sodium (Senna Plus) 1 tab PO BID [facility] Last Admin: 04/21/20 11:06 Dose: 1 tab Documented by: Sodium Polystyrene Sulfonate (Kayexalate) 15 gm PO ONETIME ONE Stop: 04/22/20 10:01 Last Admin: 04/22/20 11:34 Dose: 15 gm Documented by: Tamoxifen Citrate (Nolvadex) 20 mg PO DAILY [facility] Last Admin: 05/05/20 11:09 Dose: Not Given Documented by: Vancomycin HCl (Vancomycin) 1 gm IV .PHARMACY TO DOSE [facility] Stop: 04/30/20 12:30 - Exam Quality Assessment: Supplemental Oxygen (15 L high flow NC) General: Alert, Oriented, Cooperative, No Acute Distress Neck: Supple, No JVD Lungs: Crackles (moderate diffuse crackles both R and L ). No: Normal Respiratory Effort (increased work of breathing), Wheezing Cardiovascular: Regular Rhythm, No Murmurs, Tachycardia GI/Abdominal Exam: Normal Bowel Sounds, Soft, No Distention Extremities: No Pedal Edema. No: Increased Warmth Skin: Warm, Dry Psy/Mental Status: Alert, Normal Affect Sepsis Event Note - Evaluation Sepsis Screening Result: Severe Sepsis Risk - Focused Exam Vital Signs: Vital Signs Temp Pulse Resp BP Pulse Ox 05/08/20 07:24 90 05/08/20 07:00 35.4 C L 99 26 H 124/62 91 L 05/08/20 05:00 20 118/54 L 90 L 05/08/20 03:00 35.9 C L 26 H 116/53 L 91 L 05/08/20 01:00 19 130/57 L 94 L 05/07/20 23:00 35.5 C L 21 H 120/48 L 93 L - Problem List Review Problem List Initiated/Reviewed/Updated: Yes - My Orders Last 24 Hours: My Active Orders 05/07/20 10:27 RT Aerosol Therapy [RC] ASDIRECTED 05/07/20 11:00 Albuterol [Proventil Neb Soln] 2.5 mg NEB QIDRT 05/07/20 14:57 Resuscitation Status Routine 05/07/20 17:00 Levofloxacin/Dextrose 5%-Water [Levaquin in D5W 750 MG/150 ML] 750 mg Premix Bag 1 bag IV Q48H 05/08/20 16:00 Vancomycin 1 gm Sodium Chloride 0.9% [Normal Saline] 250 ml IV Q24H 05/09/20 05:00 BASIC METABOLIC PANEL,BMP [CHEM] Timed C-REACTIVE PROTEIN [CHEM] Timed CBC W/O DIFF,HEMOGRAM [HEME] Timed (1) D-DIMER QUANTITATIVE [COAG] Timed 05/10/20 15:30 VANCOMYCIN TROUGH [CHEM] Routine - Plan Plan:: ASSESSMENT AND PLAN BILATERAL PNEUMONIA SECONDARY TO [id number] has significant respiratory compromise without any significant or lasting improvement since hospital admission. Still intermittently requiring NIPPV. Trying another round of broad-spectrum antibiotics, steroids and bronchodilators. I am concerned that she may be progressing to the point that she will not get better. Slightly worse this morning. -Trial of additional steroids -Assess volume status daily, giving dose of furosemide today -Supplemental oxygen as needed, wean as able -Continue NIPPV as tolerated -Increase activity as tolerated with physical therapy -Inhalers as needed -Transition to comfort cares if she worsens POSSIBLE BACTERIAL PNEUMONIA-increasing infiltrates noted on chest x-ray. On broad-spectrum antibiotics. No significant change so far. -Antibiotic coverage with levofloxacin, ceftazidime and vancomycin -Scheduled nebulizers -Follow-up cultures ACUTE DVT, left popliteal vein-noted with lower extremity ultrasound. -Continue apixaban -Treat for 3 months (end mid July) CHRONIC KIDNEY DISEASE STAGE III-stable for the past week. -Closely monitor urine output and renal function TYPE 2 DIABETES MELLITUS-blood sugar levels have been elevated after steroids were restarted. -Continue usual dose of long-acting insulin -High-dose sliding scale insulin today -4 times daily glucometers MAINTENANCE ISSUES -DVT prophylaxis; apixaban -GI prophylaxis; not indicated -Nutrition; consistent carbohydrate diet DISPOSITION-anticipate discharge to home with home care versus custodial after the hospital stay if she survives the hospital stay. Reggie Altamirano MD
[2020-05-08] MEDS: Allopurinol 100 MG Tab PO SCH (10:08)
[2020-05-08] MEDS: Aspirin 81 MG Tab.Chew PO SCH (10:09)
[2020-05-08] MEDS: Lactobacillus Rhamnosus GG (Probiotic) Cap PO SCH ×3 (10:09→20:01)
[2020-05-08] MEDS: Apixaban 5 MG Tab PO SCH ×3 (10:09→20:01)
[2020-05-08] MEDS: Dexamethasone 4 MG/ML SDV IVPUSH SCH (11:00)
[2020-05-08] MEDS: Gabapentin 100 MG Cap PO SCH ×2 (19:48→20:01)
[2020-05-08] MEDS: Insulin Glargine,Human Rec. Analog 100 Units/ML 3 ML Pen SUBCUT SCH (21:04)
[2020-05-09] MEDS: Sodium Chloride 0.65% Nasal Spray 45 ML Bottle NAS SCH ×6 (03:08→23:05)
[2020-05-09] MEDS: oxyCODONE 5 MG Tab PO PRN ×3 (03:09→23:04)
[2020-05-09] MEDS: Aloe Vera/Sodium Chloride Gel 14.1 GM Tube NAS SCH ×5 (06:58→22:11)
[2020-05-09] MEDS: Albuterol 0.083% 2.5 MG/3 ML Neb Soln NEB SCH ×4 (07:11→21:31)
[2020-05-09] MEDS: Insulin Lispro 100 Unit/ML 3 ML KwikPen SUBCUT SCH ×4 (08:31→20:42)
[2020-05-09] MEDS: Aspirin 81 MG Tab.Chew PO SCH (08:35)
[2020-05-09] MEDS: Lactobacillus Rhamnosus GG (Probiotic) Cap PO SCH ×2 (08:35→20:47)
[2020-05-09] MEDS: Allopurinol 100 MG Tab PO SCH (08:35)
[2020-05-09] MEDS: Apixaban 5 MG Tab PO SCH ×2 (08:56→20:46)
[2020-05-09] MEDS: Dexamethasone 4 MG/ML SDV IVPUSH SCH (10:50)
--- NOTE | 2020-05-09 13:44 | PCM.PN ---
- General Info Date of Service: 05/09/20 Subjective Update: Ms. Barnett continues to experience severe respiratory compromise, requiring high flow oxygen to maintain adequate saturations. There has been question of underlying aspiration and pneumonia complicating ARDS secondary to COVID-19. She has shown minimal improvement over the past week, oral intake has been very poor. CODE STATUS was changed to DNR/DNI. She denies symptoms of significant shortness of breath and her cough has for the most part resolved. Functional Status: Reports: Urinating. Denies: Tolerating Diet, Ambulating - Review of Systems General: Reports: Weakness, Fatigue. Denies: Fever, Chills Pulmonary: Reports: Shortness of Breath. Denies: Pleuritic Chest Pain, Cough, Sputum, Hemoptysis, Wheezing Cardiovascular: Reports: Dyspnea on Exertion. Denies: Chest Pain, Palpitations, Orthopnea, PND, Edema, Lightheadedness Gastrointestinal: Reports: No Symptoms - Patient Data Vitals - Most Recent: Last Vital Signs Temp 98.7 F 05/09/20 07:00 Pulse 87 05/09/20 11:10 Resp 18 05/09/20 11:00 BP 119/59 L 05/09/20 11:00 Pulse Ox 83 L 05/09/20 11:00 Weight - Most Recent: 335 lb 12.224 oz I&O - Last 24 Hours: Intake & Output 05/08/20 05/09/20 05/09/20 22:59 06:59 14:59 Intake Total 250 400 50 Balance 250 400 50 Lab Results Last 24 Hours: Laboratory Results - last 24 hr 05/09/20 05/09/20 05/09/20 Range/Units 04:30 04:30 04:30 WBC 8.0 (4.5-11.0) K/uL RBC 3.15 L (3.30-5.50) M/uL Hgb 9.5 L (12.0-15.0) g/dL Hct 30.6 L (36.0-48.0) % MCV 97 (80-98) fL MCH 30 (27-31) pg MCHC 31 L (32-36) % Plt Count 191 (150-400) K/uL D-Dimer, Quantitative 631.03 H (0.0-500.0) ng/mL Sodium 132 L (140-148) mmol/L Potassium 4.5 (3.6-5.2) mmol/L Chloride 99 L (100-108) mmol/L Carbon Dioxide 29 (21-32) mmol/L Anion Gap 8.5 (5.0-14.0) mmol/L BUN 53 H (7-18) mg/dL Creatinine 1.3 H (0.6-1.0) mg/dL Est Cr Clr Drug Dosing 27.61 mL/min Estimated GFR (MDRD) 39 L (>60) Glucose 198 H (74-106) mg/dL Calcium 8.9 (8.5-10.1) mg/dL C-Reactive Protein 3.55 H (0.0-0.3) mg/dL Med Orders - Current: Current Medications Acetaminophen (Tylenol) 650 mg PO Q4H PRN PRN Reason: Pain (Mild 1-3)/fever Last Admin: 05/07/20 01:16 Dose: 650 mg Documented by: Albuterol (Ventolin Hfa) 2 gm INH Q4H PRN PRN Reason: Shortness of Breath Last Admin: 04/21/20 19:08 Dose: 2 puff Documented by: Albuterol (Proventil Neb Soln) 2.5 mg NEB QIDRT [facility] Last Admin: 05/09/20 10:50 Dose: 2.5 mg Documented by: Allopurinol (Zyloprim) 200 mg PO DAILY [facility] Last Admin: 05/09/20 08:35 Dose: 200 mg Documented by: Apixaban (Eliquis) 5 mg PO BID [facility] Last Admin: 05/09/20 08:56 Dose: 5 mg Documented by: Aspirin (Aspirin) 81 mg PO DAILY [facility] Last Admin: 05/09/20 08:35 Dose: 81 mg Documented by: Benzocaine/Menthol (Cepacol Sore Throat) 1 lozenge MUCMEM ASDIRECTED PRN PRN Reason: SORE THROAT Last Admin: 05/05/20 04:22 Dose: 1 lozenge Documented by: Dexamethasone (Decadron) 6 mg IVPUSH Q24H [facility] Stop: 05/10/20 11:01 Last Admin: 05/09/20 10:50 Dose: 6 mg Documented by: Dextrose (Glutose 15) 15 gm PO ONETIME PRN PRN Reason: Hypoglycemia Last Admin: 05/06/20 07:30 Dose: 15 gm Documented by: Dextrose/Water (Dextrose 50% In Water) 50 ml IV ONETIME PRN PRN Reason: Hypoglycemia Gabapentin (Neurontin) 100 mg PO BEDTIME [facility] Last Admin: 05/08/20 20:01 Dose: Not Given Documented by: Ceftazidime 1 gm/ Sodium (Chloride) 50 mls @ 100 mls/hr IV Q12H [facility] Last Admin: 05/09/20 11:15 Dose: 100 mls/hr Documented by: Levofloxacin/Dextrose 750 mg/ (Premix) 150 mls @ 100 mls/hr IV Q48H [facility] Last Admin: 05/07/20 17:42 Dose: 100 mls/hr Documented by: Vancomycin HCl 1 gm/ Sodium (Chloride) 250 mls @ 166.667 mls/hr IV Q24H [facility] Last Admin: 05/08/20 15:36 Dose: 166.667 mls/hr Documented by: Insulin Glargine (Lantus Solostar) 20 units SUBCUT BEDTIME [facility] Last Admin: 05/08/20 21:04 Dose: 20 unit Documented by: Insulin Human Lispro (Humalog) 0 unit SUBCUT QIDACANDBED [facility]; Protocol Last Admin: 05/09/20 12:03 Dose: 9 units Documented by: Lactobacillus Rhamnosus (Culturelle) 1 cap PO BID [facility] Last Admin: 05/09/20 08:35 Dose: 1 cap Documented by: Lorazepam (Ativan) 0.5 mg IVPUSH Q2H PRN PRN Reason: Anxiety Last Admin: 05/06/20 22:03 Dose: 0.5 mg Documented by: Melatonin (Melatonin) 9 mg PO BEDTIME PRN PRN Reason: Insomnia Last Admin: 05/07/20 01:16 Dose: 9 mg Documented by: Ondansetron HCl (Zofran) 4 mg IV Q4H PRN PRN Reason: Nausea/Vomiting Oxycodone HCl (Oxycodone) 5 mg PO Q4H PRN PRN Reason: Pain Last Admin: 05/09/20 03:09 Dose: 5 mg Documented by: Polyethylene Glycol (Miralax) 17 gm PO DAILY PRN PRN Reason: Constipation Last Admin: 04/21/20 08:06 Dose: 17 gm Documented by: Sodium Chloride (Saline Flush) 10 ml FLUSH ASDIRECTED PRN PRN Reason: Keep Vein Open Last Admin: 04/15/20 09:45 Dose: 10 ml Documented by: Sodium Chloride ([place] Nasal [place]) 0 ml ABRAHAN Q4H NABILA Last Admin: 05/09/20 12:49 Dose: 1 sprays Documented by: Sodium Chloride ([place] Saline Nasal Gel) 0 gm ABRAHAN QID NABILA Last Admin: 05/09/20 09:49 Dose: 1 applic Documented by: Discontinued Medications Acetaminophen (Tylenol) 650 mg PO ONCALL ONE Stop: 04/13/20 16:31 Last Admin: 04/13/20 17:02 Dose: 650 mg Documented by: Acetaminophen (Tylenol) 650 mg PO ONCALL ONE Stop: 04/14/20 14:31 Last Admin: 04/14/20 15:56 Dose: 650 mg Documented by: Acetaminophen (Tylenol) 650 mg PO ONCALL ONE Stop: 04/15/20 10:31 Last Admin: 04/15/20 09:44 Dose: 650 mg Documented by: Acetaminophen (Tylenol) 650 mg PO ONCALL ONE Stop: 04/16/20 09:01 Last Admin: 04/16/20 09:28 Dose: 650 mg Documented by: Albuterol (Proventil Neb Soln) 2.5 mg NEB Q4H PRN PRN Reason: Shortness Of Breath/wheezing Last Admin: 04/15/20 20:23 Dose: 2.5 mg Documented by: Benzocaine/Menthol (Cepacol Sore Throat) 1 lozenge MUCMEM ASDIRECTED PRN PRN Reason: SORE THROAT Benzocaine/Menthol (Cepacol Sore Throat) Confirm Administered Dose 1 lozenge .ROUTE .STK-MED ONE Stop: 04/12/20 21:32 Last Admin: 04/12/20 22:57 Dose: Not Given Documented by: Bisacodyl (Dulcolax) 5 mg PO DAILY NABILA Last Admin: 04/21/20 11:06 Dose: 5 mg Documented by: Dexamethasone (Dexamethasone) 6 mg IVPUSH ONETIME ONE Stop: 04/11/20 17:50 Last Admin: 04/11/20 18:08 Dose: 6 mg Documented by: Dexamethasone (Dexamethasone) Confirm Administered Dose 4 mg .ROUTE .STK-MED ONE Stop: 04/11/20 18:01 Last Admin: 04/11/20 18:11 Dose: Not Given Documented by: Dexamethasone (Decadron) 6 mg IVPUSH Q24H [facility] Last Admin: 04/25/20 19:41 Dose: 6 mg Documented by: Diphenhydramine HCl (Benadryl) 25 mg IVPUSH ONCALL ONE Stop: 04/13/20 16:31 Last Admin: 04/13/20 17:02 Dose: 25 mg Documented by: Diphenhydramine HCl (Benadryl) 25 mg IVPUSH ONCALL ONE Stop: 04/14/20 14:31 Last Admin: 04/14/20 15:56 Dose: 25 mg Documented by: Diphenhydramine HCl (Benadryl) 25 mg PO ONCALL ONE Stop: 04/15/20 10:31 Last Admin: 04/15/20 09:46 Dose: 25 mg Documented by: Diphenhydramine HCl (Benadryl) 25 mg PO ONCALL ONE Stop: 04/16/20 09:01 Last Admin: 04/16/20 09:28 Dose: 25 mg Documented by: Enoxaparin Sodium (Lovenox) 30 mg SUBCUT DAILY [facility] Last Admin: 04/11/20 21:39 Dose: 30 mg Documented by: Enoxaparin Sodium (Lovenox) 30 mg SUBCUT BEDTIME [facility] Last Admin: 04/22/20 20:11 Dose: 30 mg Documented by: Enoxaparin Sodium (Lovenox) 70 mg SUBCUT Q24H [facility] Last Admin: 05/03/20 15:26 Dose: 70 mg Documented by: Furosemide (Lasix) 40 mg IVPUSH NOW ONE Stop: 04/16/20 12:01 Last Admin: 04/16/20 12:26 Dose: 40 mg Documented by: Furosemide (Lasix) 40 mg IV ONETIME ONE Stop: 04/22/20 12:01 Last Admin: 04/22/20 12:01 Dose: 40 mg Documented by: Furosemide (Lasix) 40 mg IVPUSH ONETIME ONE Stop: 04/22/20 21:16 Last Admin: 04/22/20 21:46 Dose: 40 mg Documented by: Furosemide (Lasix) 40 mg IVPUSH ONETIME ONE Stop: 04/24/20 18:17 Last Admin: 04/24/20 18:39 Dose: 40 mg Documented by: Furosemide (Lasix) 40 mg IVPUSH NOW ONE Stop: 04/28/20 17:16 Last Admin: 04/28/20 18:42 Dose: 40 mg Documented by: Furosemide (Lasix) 40 mg IVPUSH NOW ONE Stop: 04/29/20 08:31 Last Admin: 04/29/20 09:28 Dose: 40 mg Documented by: Furosemide (Lasix) 40 mg IVPUSH NOW ONE Stop: 05/01/20 08:41 Last Admin: 05/01/20 08:37 Dose: 40 mg Documented by: Furosemide (Lasix) 20 mg IVPUSH ONETIME ONE Stop: 05/05/20 10:31 Last Admin: 05/05/20 11:08 Dose: 20 mg Documented by: Furosemide (Lasix) 40 mg IV ONETIME ONE Stop: 05/07/20 10:31 Last Admin: 05/07/20 10:45 Dose: 40 mg Documented by: Furosemide (Lasix) 40 mg IVPUSH DAILY [facility] Stop: 05/08/20 09:01 Last Admin: 05/08/20 10:09 Dose: 40 mg Documented by: Sodium Chloride (Normal Saline) 1,000 mls @ 1,000 mls/hr IV ASDIRECTED [facility] Last Admin: 04/11/20 17:14 Dose: 1,000 mls/hr Documented by: Sodium Chloride (Normal Saline) 1,000 mls @ 50 mls/hr IV ASDIRECTED [facility] Last Admin: 04/11/20 22:32 Dose: 50 mls/hr Documented by: Sodium Chloride (Normal Saline) 250 mls @ 20 mls/hr IV ASDIRECTED [facility] Last Admin: 04/13/20 17:55 Dose: 20 mls/hr Documented by: Remdesivir 200 mg/ Sodium (Chloride) 250 mls @ 250 mls/hr IV ONETIME ONE Stop: 04/22/20 14:59 Last Admin: 04/22/20 14:23 Dose: 250 mls/hr Documented by: Remdesivir 100 mg/ Sodium (Chloride) 100 mls @ 100 mls/hr IV Q24H [facility] Stop: 04/26/20 14:59 Last Admin: 04/24/20 13:38 Dose: 100 mls/hr Documented by: Levofloxacin/Dextrose 750 mg/ (Premix) 150 mls @ 100 mls/hr IV Q48H [facility] Last Admin: 04/30/20 11:40 Dose: 100 mls/hr Documented by: Vancomycin HCl 1 gm/ Sodium (Chloride) 250 mls @ 166.667 mls/hr IV Q24H [facility] Last Admin: 05/01/20 13:26 Dose: 166.667 mls/hr Documented by: Meropenem 1 gm/ Sodium (Chloride) 100 mls @ 200 mls/hr IV Q12H [facility] Last Admin: 05/01/20 04:01 Dose: 200 mls/hr Documented by: Ceftriaxone Sodium 1 gm/ (Sodium Chloride) 50 mls @ 100 mls/hr IV Q24H [facility] Last Admin: 05/04/20 14:41 Dose: 100 mls/hr Documented by: Doxycycline Hyclate 100 mg/ (Sodium Chloride) 100 mls @ 100 mls/hr IV Q12H [facility] Last Admin: 05/07/20 11:57 Dose: 100 mls/hr Documented by: Vancomycin HCl 1.4 gm/ Sodium (Chloride) 250 mls @ 150 mls/hr IV ONETIME ONE Stop: 05/07/20 17:39 Last Admin: 05/07/20 15:25 Dose: 150 mls/hr Documented by: Insulin Glargine (Lantus Solostar) 26 units SUBCUT BEDTIME [facility] Last Admin: 04/11/20 23:35 Dose: Not Given Documented by: Insulin Glargine (Lantus Solostar) 24 units SUBCUT BEDTIME [facility] Last Admin: 04/11/20 22:33 Dose: 24 units Documented by: Insulin Glargine (Lantus Solostar) 24 units SUBCUT BEDTIME [facility] Last Admin: 05/05/20 22:35 Dose: 24 units Documented by: Insulin Human Lispro (Humalog) 0 unit SUBCUT QIDACANDBED [facility]; Protocol Last Admin: 05/02/20 17:46 Dose: 2 units Documented by: Insulin Human Lispro (Humalog) 0 unit SUBCUT QIDACANDBED [facility]; Protocol Last Admin: 05/02/20 08:24 Dose: Not Given Documented by: Lorazepam (Ativan) 0.5 mg IVPUSH Q2H PRN PRN Reason: Anxiety Last Admin: 04/30/20 21:00 Dose: 0.5 mg Documented by: Magnesium Hydroxide (Milk Of Magnesia) 30 ml PO DAILY [facility] Last Admin: 04/21/20 11:06 Dose: 30 ml Documented by: Senna/Docusate Sodium (Senna Plus) 1 tab PO BID [facility] Last Admin: 04/21/20 11:06 Dose: 1 tab Documented by: Sodium Polystyrene Sulfonate (Kayexalate) 15 gm PO ONETIME ONE Stop: 04/22/20 10:01 Last Admin: 04/22/20 11:34 Dose: 15 gm Documented by: Tamoxifen Citrate (Nolvadex) 20 mg PO DAILY [facility] Last Admin: 05/05/20 11:09 Dose: Not Given Documented by: Vancomycin HCl (Vancomycin) 1 gm IV .PHARMACY TO DOSE [facility] Stop: 04/30/20 12:30 - Exam Quality Assessment: Supplemental Oxygen, DVT Prophylaxis General: Alert, Cooperative, Mild Distress Lungs: Decreased Breath Sounds, Rales, Rhonchi. No: Crackles, Rub, Wheezing Cardiovascular: Regular Rate, Regular Rhythm, No Murmurs GI/Abdominal Exam: Soft, Non-Tender, No Organomegaly, No Distention Extremities: Non-Tender, No Pedal Edema Sepsis Event Note - Evaluation Sepsis Screening Result: Severe Sepsis Risk - Focused Exam Vital Signs: Vital Signs Temp Pulse Resp BP Pulse Ox 05/09/20 11:10 87 05/09/20 11:00 90 18 119/59 L 83 L 05/09/20 08:21 101 H 26 H 156/59 H 88 L 05/09/20 07:11 90 05/09/20 07:00 98.7 F 103 H 28 H 156/59 H 87 L 05/09/20 05:00 93 19 119/55 L 92 L 05/09/20 03:00 93 20 103/43 L 92 L - Problem List Review Problem List Initiated/Reviewed/Updated: Yes - My Orders Last 24 Hours: My Active Orders 05/10/20 05:00 CBC WITH AUTO DIFF [HEME] Timed COMPREHENSIVE METABOLIC PN,CMP [CHEM] Timed 05/10/20 05:11 CRP [C-REACTIVE PROTEIN] [CHEM] AM D Dimer [D-DIMER QUANTITATIVE] [COAG] AM - Plan Plan:: ASSESSMENT AND PLAN BILATERAL PNEUMONIA SECONDARY TO [id number] has significant respiratory compromise without any significant or lasting improvement since hospital admis carol. Still intermittently requiring NIPPV. Trying another round of broad- spectrum antibiotics, steroids and bronchodilators. Overall stable since yesterday -Trial of additional steroids -Assess volume status daily -Supplemental oxygen as needed, wean as able -Continue NIPPV as tolerated -Increase activity as tolerated with physical therapy -Inhalers as needed -Transition to comfort cares if she worsens POSSIBLE BACTERIAL PNEUMONIA-increasing infiltrates noted on chest x-ray. On broad-spectrum antibiotics. No significant change so far. -Antibiotic coverage with levofloxacin, ceftazidime and vancomycin -Scheduled nebulizers -Follow-up cultures ACUTE DVT, left popliteal vein-noted with lower extremity ultrasound. -Continue apixaban -Treat for 3 months (end mid July) CHRONIC KIDNEY DISEASE STAGE III-stable for the past week. -Closely monitor urine output and renal function TYPE 2 DIABETES MELLITUS-blood sugar levels have been elevated after steroids were restarted. -Continue usual dose of long-acting insulin -High-dose sliding scale insulin today -4 times daily glucometers MAINTENANCE ISSUES -DVT prophylaxis; apixaban -GI prophylaxis; not indicated -Nutrition; consistent carbohydrate diet DISPOSITION-anticipate discharge to home with home care versus care home after the hospital stay if she survives the hospital stay.
[2020-05-09] MEDS: Levofloxacin/Dextrose 5%-Water 750 MG in Premix Bag 1 BAG IV SCH (17:10)
[2020-05-09] MEDS: Insulin Glargine,Human Rec. Analog 100 Units/ML 3 ML Pen SUBCUT SCH (20:43)
[2020-05-09] MEDS: Gabapentin 100 MG Cap PO SCH (20:46)
[2020-05-09] MEDS: Melatonin 3 MG Tab PO PRN (23:04)
[2020-05-10] MEDS: Sodium Chloride 0.65% Nasal Spray 45 ML Bottle NAS SCH ×6 (03:02→22:32)
[2020-05-10] MEDS: Aloe Vera/Sodium Chloride Gel 14.1 GM Tube NAS SCH ×4 (06:14→22:31)
[2020-05-10] MEDS: Albuterol 0.083% 2.5 MG/3 ML Neb Soln NEB SCH ×4 (07:00→20:50)
[2020-05-10] MEDS: Insulin Lispro 100 Unit/ML 3 ML KwikPen SUBCUT SCH ×4 (07:39→20:43)
[2020-05-10] MEDS: Allopurinol 100 MG Tab PO SCH (08:59)
[2020-05-10] MEDS: Lactobacillus Rhamnosus GG (Probiotic) Cap PO SCH ×2 (08:59→20:40)
[2020-05-10] MEDS: Apixaban 5 MG Tab PO SCH ×2 (08:59→20:40)
[2020-05-10] MEDS: Aspirin 81 MG Tab.Chew PO SCH (08:59)
[2020-05-10] MEDS: Dexamethasone 4 MG/ML SDV IVPUSH SCH (10:39)
--- NOTE | 2020-05-10 12:37 | PCM.PN ---
- General Info Date of Service: 05/10/20 Subjective Update: Ms. Barnett has shown modest improvement over the last 24 hours. She is requiring decreased level of supplemental oxygen to maintain adequate oxygenation. Appetite seems to be modestly improved over the past 2 days. Functional Status: Reports: Urinating - Review of Systems General: Reports: Weakness, Fatigue. Denies: Fever, Chills Pulmonary: Reports: Shortness of Breath. Denies: Pleuritic Chest Pain, Cough, Sputum, Hemoptysis, Wheezing Cardiovascular: Reports: Dyspnea on Exertion. Denies: Chest Pain, Palpitations, Orthopnea, PND, Edema, Lightheadedness Gastrointestinal: Reports: No Symptoms - Patient Data Vitals - Most Recent: Last Vital Signs Temp 96.8 F L 05/10/20 12:00 Pulse 98 05/10/20 12:00 Resp 22 H 05/10/20 12:00 BP 128/49 L 05/10/20 12:00 Pulse Ox 92 L 05/10/20 12:00 Weight - Most Recent: 335 lb 12.224 oz I&O - Last 24 Hours: Intake & Output 05/09/20 05/10/20 05/10/20 22:59 06:59 14:59 Intake Total 830 Balance 830 Lab Results Last 24 Hours: Laboratory Results - last 24 hr 05/10/20 05/10/20 05/10/20 Range/Units 04:53 04:53 04:53 WBC 7.2 (4.5-11.0) K/uL RBC 2.97 L (3.30-5.50) M/uL Hgb 9.1 L (12.0-15.0) g/dL Hct 29.1 L (36.0-48.0) % MCV 98 (80-98) fL MCH 31 (27-31) pg MCHC 31 L (32-36) % Plt Count 184 (150-400) K/uL Neut % (Auto) 84 H (36-66) % Lymph % (Auto) 9 L (24-44) % [place] % (Auto) 7 H (2-6) % Eos % (Auto) 0 L (2-4) % Baso % (Auto) 0 (0-1) % D-Dimer, Quantitative 649.13 H (0.0-500.0) ng/mL Sodium 135 L (140-148) mmol/L Potassium 4.8 (3.6-5.2) mmol/L Chloride 101 (100-108) mmol/L Carbon Dioxide 30 (21-32) mmol/L Anion Gap 8.8 (5.0-14.0) mmol/L BUN 48 H (7-18) mg/dL Creatinine 1.3 H (0.6-1.0) mg/dL Est Cr Clr Drug Dosing 27.61 mL/min Estimated GFR (MDRD) 39 L (>60) Glucose 197 H (74-106) mg/dL Calcium 8.7 (8.5-10.1) mg/dL Total Bilirubin 0.4 (0.2-1.0) mg/dL AST 65 H D (15-37) U/L ALT 50 D (12-78) U/L Alkaline Phosphatase 68 (46-116) U/L C-Reactive Protein (0.0-0.3) mg/dL Total Protein 5.1 L (6.4-8.2) g/dL Albumin 1.3 L (3.4-5.0) g/dL Globulin 3.8 H (2.3-3.5) g/dL Albumin/Globulin Ratio 0.3 L (1.2-2.2) 05/10/20 Range/Units 04:53 WBC (4.5-11.0) K/uL RBC (3.30-5.50) M/uL Hgb (12.0-15.0) g/dL Hct (36.0-48.0) % MCV (80-98) fL MCH (27-31) pg MCHC (32-36) % Plt Count (150-400) K/uL Neut % (Auto) (36-66) % Lymph % (Auto) (24-44) % [place] % (Auto) (2-6) % Eos % (Auto) (2-4) % Baso % (Auto) (0-1) % D-Dimer, Quantitative (0.0-500.0) ng/mL Sodium (140-148) mmol/L Potassium (3.6-5.2) mmol/L Chloride (100-108) mmol/L Carbon Dioxide (21-32) mmol/L Anion Gap (5.0-14.0) mmol/L BUN (7-18) mg/dL Creatinine (0.6-1.0) mg/dL Est Cr Clr Drug Dosing mL/min Estimated GFR (MDRD) (>60) Glucose (74-106) mg/dL Calcium (8.5-10.1) mg/dL Total Bilirubin (0.2-1.0) mg/dL AST (15-37) U/L ALT (12-78) U/L Alkaline Phosphatase (46-116) U/L C-Reactive Protein 2.21 H (0.0-0.3) mg/dL Total Protein (6.4-8.2) g/dL Albumin (3.4-5.0) g/dL Globulin (2.3-3.5) g/dL Albumin/Globulin Ratio (1.2-2.2) Med Orders - Current: Current Medications Acetaminophen (Tylenol) 650 mg PO Q4H PRN PRN Reason: Pain (Mild 1-3)/fever Last Admin: 05/07/20 01:16 Dose: 650 mg Documented by: Albuterol (Ventolin Hfa) 2 gm INH Q4H PRN PRN Reason: Shortness of Breath Last Admin: 04/21/20 19:08 Dose: 2 puff Documented by: Albuterol (Proventil Neb Soln) 2.5 mg NEB QIDRT [facility] Last Admin: 05/10/20 10:46 Dose: 2.5 mg Documented by: Allopurinol (Zyloprim) 200 mg PO DAILY [facility] Last Admin: 05/10/20 08:59 Dose: 200 mg Documented by: Apixaban (Eliquis) 5 mg PO BID [facility] Last Admin: 05/10/20 08:59 Dose: 5 mg Documented by: Aspirin (Aspirin) 81 mg PO DAILY [facility] Last Admin: 05/10/20 08:59 Dose: 81 mg Documented by: Benzocaine/Menthol (Cepacol Sore Throat) 1 lozenge MUCMEM ASDIRECTED PRN PRN Reason: SORE THROAT Last Admin: 05/05/20 04:22 Dose: 1 lozenge Documented by: Dextrose (Glutose 15) 15 gm PO ONETIME PRN PRN Reason: Hypoglycemia Last Admin: 05/06/20 07:30 Dose: 15 gm Documented by: Dextrose/Water (Dextrose 50% In Water) 50 ml IV ONETIME PRN PRN Reason: Hypoglycemia Gabapentin (Neurontin) 100 mg PO BEDTIME [facility] Last Admin: 05/09/20 20:46 Dose: 100 mg Documented by: Ceftazidime 1 gm/ Sodium (Chloride) 50 mls @ 100 mls/hr IV Q12H [facility] Last Admin: 05/10/20 10:40 Dose: 100 mls/hr Documented by: Levofloxacin/Dextrose 750 mg/ (Premix) 150 mls @ 100 mls/hr IV Q48H [facility] Last Admin: 05/09/20 17:10 Dose: 100 mls/hr Documented by: Vancomycin HCl 1 gm/ Sodium (Chloride) 250 mls @ 166.667 mls/hr IV Q24H [facility] Last Admin: 05/09/20 15:40 Dose: 166.667 mls/hr Documented by: Insulin Glargine (Lantus Solostar) 20 units SUBCUT BEDTIME [facility] Last Admin: 05/09/20 20:43 Dose: 20 unit Documented by: Insulin Human Lispro (Humalog) 0 unit SUBCUT QIDACANDBED [facility]; Protocol Last Admin: 05/10/20 10:44 Dose: 3 units Documented by: Lactobacillus Rhamnosus (Culturelle) 1 cap PO BID [facility] Last Admin: 05/10/20 08:59 Dose: 1 cap Documented by: Lorazepam (Ativan) 0.5 mg IVPUSH Q2H PRN PRN Reason: Anxiety Last Admin: 05/06/20 22:03 Dose: 0.5 mg Documented by: Melatonin (Melatonin) 9 mg PO BEDTIME PRN PRN Reason: Insomnia Last Admin: 05/09/20 23:04 Dose: 9 mg Documented by: Ondansetron HCl (Zofran) 4 mg IV Q4H PRN PRN Reason: Nausea/Vomiting Oxycodone HCl (Oxycodone) 5 mg PO Q4H PRN PRN Reason: Pain Last Admin: 05/09/20 23:04 Dose: 5 mg Documented by: Polyethylene Glycol (Miralax) 17 gm PO DAILY PRN PRN Reason: Constipation Last Admin: 04/21/20 08:06 Dose: 17 gm Documented by: Sodium Chloride (Saline Flush) 10 ml FLUSH ASDIRECTED PRN PRN Reason: Keep Vein Open Last Admin: 04/15/20 09:45 Dose: 10 ml Documented by: Sodium Chloride ([place] Nasal [place]) 0 ml ABRAHAN Q4H [facility] Last Admin: 05/10/20 10:46 Dose: 1 sprays Documented by: Sodium Chloride ([place] Saline Nasal Gel) 0 gm ABRAHAN QID [facility] Last Admin: 05/10/20 09:00 Dose: 1 applic Documented by: Discontinued Medications Acetaminophen (Tylenol) 650 mg PO ONCALL ONE Stop: 04/13/20 16:31 Last Admin: 04/13/20 17:02 Dose: 650 mg Documented by: Acetaminophen (Tylenol) 650 mg PO ONCALL ONE Stop: 04/14/20 14:31 Last Admin: 04/14/20 15:56 Dose: 650 mg Documented by: Acetaminophen (Tylenol) 650 mg PO ONCALL ONE Stop: 04/15/20 10:31 Last Admin: 04/15/20 09:44 Dose: 650 mg Documented by: Acetaminophen (Tylenol) 650 mg PO ONCALL ONE Stop: 04/16/20 09:01 Last Admin: 04/16/20 09:28 Dose: 650 mg Documented by: Albuterol (Proventil Neb Soln) 2.5 mg NEB Q4H PRN PRN Reason: Shortness Of Breath/wheezing Last Admin: 04/15/20 20:23 Dose: 2.5 mg Documented by: Benzocaine/Menthol (Cepacol Sore Throat) 1 lozenge MUCMEM ASDIRECTED PRN PRN Reason: SORE THROAT Benzocaine/Menthol (Cepacol Sore Throat) Confirm Administered Dose 1 lozenge .ROUTE .STK-MED ONE Stop: 04/12/20 21:32 Last Admin: 04/12/20 22:57 Dose: Not Given Documented by: Bisacodyl (Dulcolax) 5 mg PO DAILY [facility] Last Admin: 04/21/20 11:06 Dose: 5 mg Documented by: Dexamethasone (Dexamethasone) 6 mg IVPUSH ONETIME ONE Stop: 04/11/20 17:50 Last Admin: 04/11/20 18:08 Dose: 6 mg Documented by: Dexamethasone (Dexamethasone) Confirm Administered Dose 4 mg .ROUTE .STK-MED ONE Stop: 04/11/20 18:01 Last Admin: 04/11/20 18:11 Dose: Not Given Documented by: Dexamethasone (Decadron) 6 mg IVPUSH Q24H [facility] Last Admin: 04/25/20 19:41 Dose: 6 mg Documented by: Dexamethasone (Decadron) 6 mg IVPUSH Q24H [facility] Stop: 05/10/20 11:01 Last Admin: 05/10/20 10:39 Dose: 6 mg Documented by: Diphenhydramine HCl (Benadryl) 25 mg IVPUSH ONCALL ONE Stop: 04/13/20 16:31 Last Admin: 04/13/20 17:02 Dose: 25 mg Documented by: Diphenhydramine HCl (Benadryl) 25 mg IVPUSH ONCALL ONE Stop: 04/14/20 14:31 Last Admin: 04/14/20 15:56 Dose: 25 mg Documented by: Diphenhydramine HCl (Benadryl) 25 mg PO ONCALL ONE Stop: 04/15/20 10:31 Last Admin: 04/15/20 09:46 Dose: 25 mg Documented by: Diphenhydramine HCl (Benadryl) 25 mg PO ONCALL ONE Stop: 04/16/20 09:01 Last Admin: 04/16/20 09:28 Dose: 25 mg Documented by: Enoxaparin Sodium (Lovenox) 30 mg SUBCUT DAILY [facility] Last Admin: 04/11/20 21:39 Dose: 30 mg Documented by: Enoxaparin Sodium (Lovenox) 30 mg SUBCUT BEDTIME [facility] Last Admin: 04/22/20 20:11 Dose: 30 mg Documented by: Enoxaparin Sodium (Lovenox) 70 mg SUBCUT Q24H [facility] Last Admin: 05/03/20 15:26 Dose: 70 mg Documented by: Furosemide (Lasix) 40 mg IVPUSH NOW ONE Stop: 04/16/20 12:01 Last Admin: 04/16/20 12:26 Dose: 40 mg Documented by: Furosemide (Lasix) 40 mg IV ONETIME ONE Stop: 04/22/20 12:01 Last Admin: 04/22/20 12:01 Dose: 40 mg Documented by: Furosemide (Lasix) 40 mg IVPUSH ONETIME ONE Stop: 04/22/20 21:16 Last Admin: 04/22/20 21:46 Dose: 40 mg Documented by: Furosemide (Lasix) 40 mg IVPUSH ONETIME ONE Stop: 04/24/20 18:17 Last Admin: 04/24/20 18:39 Dose: 40 mg Documented by: Furosemide (Lasix) 40 mg IVPUSH NOW ONE Stop: 04/28/20 17:16 Last Admin: 04/28/20 18:42 Dose: 40 mg Documented by: Furosemide (Lasix) 40 mg IVPUSH NOW ONE Stop: 04/29/20 08:31 Last Admin: 04/29/20 09:28 Dose: 40 mg Documented by: Furosemide (Lasix) 40 mg IVPUSH NOW ONE Stop: 05/01/20 08:41 Last Admin: 05/01/20 08:37 Dose: 40 mg Documented by: Furosemide (Lasix) 20 mg IVPUSH ONETIME ONE Stop: 05/05/20 10:31 Last Admin: 05/05/20 11:08 Dose: 20 mg Documented by: Furosemide (Lasix) 40 mg IV ONETIME ONE Stop: 05/07/20 10:31 Last Admin: 05/07/20 10:45 Dose: 40 mg Documented by: Furosemide (Lasix) 40 mg IVPUSH DAILY [facility] Stop: 05/08/20 09:01 Last Admin: 05/08/20 10:09 Dose: 40 mg Documented by: Sodium Chloride (Normal Saline) 1,000 mls @ 1,000 mls/hr IV ASDIRECTED [facility] Last Admin: 04/11/20 17:14 Dose: 1,000 mls/hr Documented by: Sodium Chloride (Normal Saline) 1,000 mls @ 50 mls/hr IV ASDIRECTED [facility] Last Admin: 04/11/20 22:32 Dose: 50 mls/hr Documented by: Sodium Chloride (Normal Saline) 250 mls @ 20 mls/hr IV ASDIRECTED [facility] Last Admin: 04/13/20 17:55 Dose: 20 mls/hr Documented by: Remdesivir 200 mg/ Sodium (Chloride) 250 mls @ 250 mls/hr IV ONETIME ONE Stop: 04/22/20 14:59 Last Admin: 04/22/20 14:23 Dose: 250 mls/hr Documented by: Remdesivir 100 mg/ Sodium (Chloride) 100 mls @ 100 mls/hr IV Q24H [facility] Stop: 04/26/20 14:59 Last Admin: 04/24/20 13:38 Dose: 100 mls/hr Documented by: Levofloxacin/Dextrose 750 mg/ (Premix) 150 mls @ 100 mls/hr IV Q48H [facility] Last Admin: 04/30/20 11:40 Dose: 100 mls/hr Documented by: Vancomycin HCl 1 gm/ Sodium (Chloride) 250 mls @ 166.667 mls/hr IV Q24H [facility] Last Admin: 05/01/20 13:26 Dose: 166.667 mls/hr Documented by: Meropenem 1 gm/ Sodium (Chloride) 100 mls @ 200 mls/hr IV Q12H [facility] Last Admin: 05/01/20 04:01 Dose: 200 mls/hr Documented by: Ceftriaxone Sodium 1 gm/ (Sodium Chloride) 50 mls @ 100 mls/hr IV Q24H [facility] Last Admin: 05/04/20 14:41 Dose: 100 mls/hr Documented by: Doxycycline Hyclate 100 mg/ (Sodium Chloride) 100 mls @ 100 mls/hr IV Q12H [facility] Last Admin: 05/07/20 11:57 Dose: 100 mls/hr Documented by: Vancomycin HCl 1.4 gm/ Sodium (Chloride) 250 mls @ 150 mls/hr IV ONETIME ONE Stop: 05/07/20 17:39 Last Admin: 05/07/20 15:25 Dose: 150 mls/hr Documented by: Insulin Glargine (Lantus Solostar) 26 units SUBCUT BEDTIME [facility] Last Admin: 04/11/20 23:35 Dose: Not Given Documented by: Insulin Glargine (Lantus Solostar) 24 units SUBCUT BEDTIME [facility] Last Admin: 04/11/20 22:33 Dose: 24 units Documented by: Insulin Glargine (Lantus Solostar) 24 units SUBCUT BEDTIME [facility] Last Admin: 05/05/20 22:35 Dose: 24 units Documented by: Insulin Human Lispro (Humalog) 0 unit SUBCUT QIDACANDBED [facility]; Protocol Last Admin: 05/02/20 17:46 Dose: 2 units Documented by: Insulin Human Lispro (Humalog) 0 unit SUBCUT QIDACANDBED [facility]; Protocol Last Admin: 05/02/20 08:24 Dose: Not Given Documented by: Lorazepam (Ativan) 0.5 mg IVPUSH Q2H PRN PRN Reason: Anxiety Last Admin: 04/30/20 21:00 Dose: 0.5 mg Documented by: Magnesium Hydroxide (Milk Of Magnesia) 30 ml PO DAILY [facility] Last Admin: 04/21/20 11:06 Dose: 30 ml Documented by: Senna/Docusate Sodium (Senna Plus) 1 tab PO BID [facility] Last Admin: 04/21/20 11:06 Dose: 1 tab Documented by: Sodium Polystyrene Sulfonate (Kayexalate) 15 gm PO ONETIME ONE Stop: 04/22/20 10:01 Last Admin: 04/22/20 11:34 Dose: 15 gm Documented by: Tamoxifen Citrate (Nolvadex) 20 mg PO DAILY [facility] Last Admin: 05/05/20 11:09 Dose: Not Given Documented by: Vancomycin HCl (Vancomycin) 1 gm IV .PHARMACY TO DOSE [facility] Stop: 04/30/20 12:30 - Exam Quality Assessment: Supplemental Oxygen, DVT Prophylaxis General: Alert, Oriented, Cooperative, Mild Distress Lungs: Clear to Auscultation, Normal Respiratory Effort, Decreased Breath Sounds Cardiovascular: Regular Rate, Regular Rhythm, No Murmurs GI/Abdominal Exam: Soft, Non-Tender, No Organomegaly, No Distention Extremities: Non-Tender, No Pedal Edema Sepsis Event Note - Evaluation Sepsis Screening Result: Sepsis Risk - Focused Exam Vital Signs: Vital Signs Temp Pulse Resp BP Pulse Ox 05/10/20 12:00 96.8 F L 98 22 H 128/49 L 92 L 05/10/20 10:00 92 27 H 143/48 H 91 L 05/10/20 08:00 96.8 F L 90 19 130/52 L 91 L 05/10/20 06:00 17 128/54 L 92 L 05/10/20 04:00 20 118/50 L 91 L 05/10/20 03:00 99.1 F 15 117/53 L 96 05/10/20 01:00 16 136/56 L 95 - Problem List Review Problem List Initiated/Reviewed/Updated: Yes - My Orders Last 24 Hours: My Active Orders 05/11/20 05:00 CBC WITH AUTO DIFF [HEME] Timed COMPREHENSIVE METABOLIC PN,CMP [CHEM] Timed 05/11/20 05:11 CRP [C-REACTIVE PROTEIN] [CHEM] AM D Dimer [D-DIMER QUANTITATIVE] [COAG] AM - Plan Plan:: ASSESSMENT AND PLAN BILATERAL PNEUMONIA SECONDARY TO [id number] has significant respiratory compromise without any significant or lasting improvement since hospital admission. Slowly improved over the last 24 hours. Currently on 10 L/min of oxygen via nasal cannula -Trial of additional steroids -Assess volume status daily -Supplemental oxygen as needed, wean as able -Increase activity as tolerated with physical therapy -Inhalers as needed -Transition to comfort cares if she worsens POSSIBLE BACTERIAL PNEUMONIA-increasing infiltrates noted on chest x-ray. On broad-spectrum antibiotics. -Antibiotic coverage with levofloxacin, ceftazidime and vancomycin -Scheduled nebulizers -Follow-up cultures ACUTE DVT, left popliteal vein-noted with lower extremity ultrasound. -Continue apixaban -Treat for 3 months (end mid July) CHRONIC KIDNEY DISEASE STAGE III-stable for the past week. -Closely monitor urine output and renal function TYPE 2 DIABETES MELLITUS-blood sugar levels have been elevated after steroids were restarted. -Continue usual dose of long-acting insulin -High-dose sliding scale insulin today -4 times daily glucometers MAINTENANCE ISSUES -DVT prophylaxis; apixaban -GI prophylaxis; not indicated -Nutrition; consistent carbohydrate diet DISPOSITION-anticipate discharge to home with home care versus penitentiary after the hospital stay if she survives the hospital stay.
[2020-05-10] MEDS: oxyCODONE 5 MG Tab PO PRN (20:40)
[2020-05-10] MEDS: Gabapentin 100 MG Cap PO SCH (20:40)
[2020-05-10] MEDS: Acetaminophen 325 MG Tab PO PRN (20:40)
[2020-05-10] MEDS: Insulin Glargine,Human Rec. Analog 100 Units/ML 3 ML Pen SUBCUT SCH (20:44)
[2020-05-10] MEDS: Melatonin 3 MG Tab PO PRN (21:34)
[2020-05-11] MEDS: oxyCODONE 5 MG Tab PO PRN ×2 (01:47→21:15)
[2020-05-11] MEDS: Sodium Chloride 0.65% Nasal Spray 45 ML Bottle NAS SCH ×6 (03:13→23:14)
[2020-05-11] MEDS: Aloe Vera/Sodium Chloride Gel 14.1 GM Tube NAS SCH ×4 (06:17→21:07)
[2020-05-11] MEDS: Albuterol 0.083% 2.5 MG/3 ML Neb Soln NEB SCH ×4 (07:06→20:56)
[2020-05-11] MEDS: Insulin Lispro 100 Unit/ML 3 ML KwikPen SUBCUT SCH ×4 (07:41→20:54)
[2020-05-11] MEDS: Apixaban 5 MG Tab PO SCH ×2 (10:13→20:50)
[2020-05-11] MEDS: Lactobacillus Rhamnosus GG (Probiotic) Cap PO SCH ×2 (10:13→20:50)
[2020-05-11] MEDS: Aspirin 81 MG Tab.Chew PO SCH (10:13)
[2020-05-11] MEDS: Allopurinol 100 MG Tab PO SCH (10:13)
--- NOTE | 2020-05-11 10:19 | PCM.PN ---
- General Info Date of Service: 05/11/20 Subjective Update: Ms. Barnett has been stable over the last 24 hours, no significant improvement but she is not worse in any way. Subjectively she reports that she is feeling somewhat stronger and less short of breath. Functional Status: Reports: Urinating. Denies: Ambulating - Review of Systems General: Reports: Weakness, Fatigue. Denies: Fever, Chills Pulmonary: Reports: Shortness of Breath, Hemoptysis. Denies: Pleuritic Chest Pain, Cough, Sputum, Wheezing Cardiovascular: Reports: Dyspnea on Exertion. Denies: Chest Pain, Palpitations, Orthopnea, PND, Edema, Lightheadedness Gastrointestinal: Reports: No Symptoms Genitourinary: Reports: No Symptoms - Patient Data Vitals - Most Recent: Last Vital Signs Temp 97 F 05/11/20 07:00 Pulse 84 05/11/20 07:07 Resp 18 05/11/20 07:00 BP 120/50 L 05/11/20 07:00 Pulse Ox 90 L 05/11/20 07:00 Weight - Most Recent: 335 lb 12.224 oz I&O - Last 24 Hours: Intake & Output 05/10/20 05/11/20 05/11/20 22:59 06:59 14:59 Intake Total 480 Balance 480 Lab Results Last 24 Hours: Laboratory Results - last 24 hr 05/10/20 05/11/20 05/11/20 Range/Units 15:40 06:21 06:21 WBC 7.4 (4.5-11.0) K/uL RBC 3.04 L (3.30-5.50) M/uL Hgb 9.4 L (12.0-15.0) g/dL Hct 30.1 L (36.0-48.0) % MCV 99 H (80-98) fL MCH 31 (27-31) pg MCHC 31 L (32-36) % Plt Count 204 (150-400) K/uL Neut % (Auto) 84 H (36-66) % Lymph % (Auto) 11 L (24-44) % [place] % (Auto) 6 (2-6) % Eos % (Auto) 0 L (2-4) % Baso % (Auto) 0 (0-1) % D-Dimer, Quantitative (0.0-500.0) ng/mL Sodium 138 L (140-148) mmol/L Potassium 4.5 (3.6-5.2) mmol/L Chloride 104 (100-108) mmol/L Carbon Dioxide 31 (21-32) mmol/L Anion Gap 7.5 (5.0-14.0) mmol/L BUN 42 H (7-18) mg/dL Creatinine 1.0 (0.6-1.0) mg/dL Est Cr Clr Drug Dosing 35.90 mL/min Estimated GFR (MDRD) 52 L (>60) Glucose 118 H (74-106) mg/dL Calcium 8.8 (8.5-10.1) mg/dL Total Bilirubin 0.4 (0.2-1.0) mg/dL AST 81 H (15-37) U/L ALT 57 (12-78) U/L Alkaline Phosphatase 69 (46-116) U/L C-Reactive Protein (0.0-0.3) mg/dL Total Protein 5.2 L (6.4-8.2) g/dL Albumin 1.4 L (3.4-5.0) g/dL Globulin 3.8 H (2.3-3.5) g/dL Albumin/Globulin Ratio 0.4 L (1.2-2.2) Vancomycin Trough 18.0 (10.0-20.0) ug/mL 05/11/20 05/11/20 Range/Units 06:21 06:21 WBC (4.5-11.0) K/uL RBC (3.30-5.50) M/uL Hgb (12.0-15.0) g/dL Hct (36.0-48.0) % MCV (80-98) fL MCH (27-31) pg MCHC (32-36) % Plt Count (150-400) K/uL Neut % (Auto) (36-66) % Lymph % (Auto) (24-44) % [place] % (Auto) (2-6) % Eos % (Auto) (2-4) % Baso % (Auto) (0-1) % D-Dimer, Quantitative 658.84 H (0.0-500.0) ng/mL Sodium (140-148) mmol/L Potassium (3.6-5.2) mmol/L Chloride (100-108) mmol/L Carbon Dioxide (21-32) mmol/L Anion Gap (5.0-14.0) mmol/L BUN (7-18) mg/dL Creatinine (0.6-1.0) mg/dL Est Cr Clr Drug Dosing mL/min Estimated GFR (MDRD) (>60) Glucose (74-106) mg/dL Calcium (8.5-10.1) mg/dL Total Bilirubin (0.2-1.0) mg/dL AST (15-37) U/L ALT (12-78) U/L Alkaline Phosphatase (46-116) U/L C-Reactive Protein 1.28 H (0.0-0.3) mg/dL Total Protein (6.4-8.2) g/dL Albumin (3.4-5.0) g/dL Globulin (2.3-3.5) g/dL Albumin/Globulin Ratio (1.2-2.2) Vancomycin Trough (10.0-20.0) ug/mL Med Orders - Current: Current Medications Acetaminophen (Tylenol) 650 mg PO Q4H PRN PRN Reason: Pain (Mild 1-3)/fever Last Admin: 05/10/20 20:40 Dose: 650 mg Documented by: Albuterol (Ventolin Hfa) 2 gm INH Q4H PRN PRN Reason: Shortness of Breath Last Admin: 04/21/20 19:08 Dose: 2 puff Documented by: Albuterol (Proventil Neb Soln) 2.5 mg NEB QIDRT [facility] Last Admin: 05/11/20 07:06 Dose: 2.5 mg Documented by: Allopurinol (Zyloprim) 200 mg PO DAILY [facility] Last Admin: 05/11/20 10:13 Dose: 200 mg Documented by: Apixaban (Eliquis) 5 mg PO BID [facility] Last Admin: 05/11/20 10:13 Dose: 5 mg Documented by: Aspirin (Aspirin) 81 mg PO DAILY [facility] Last Admin: 05/11/20 10:13 Dose: 81 mg Documented by: Benzocaine/Menthol (Cepacol Sore Throat) 1 lozenge MUCMEM ASDIRECTED PRN PRN Reason: SORE THROAT Last Admin: 05/05/20 04:22 Dose: 1 lozenge Documented by: Dextrose (Glutose 15) 15 gm PO ONETIME PRN PRN Reason: Hypoglycemia Last Admin: 05/06/20 07:30 Dose: 15 gm Documented by: Dextrose/Water (Dextrose 50% In Water) 50 ml IV ONETIME PRN PRN Reason: Hypoglycemia Furosemide (Lasix) 40 mg IVPUSH NOW ONE Stop: 05/11/20 10:15 Gabapentin (Neurontin) 100 mg PO BEDTIME [facility] Last Admin: 05/10/20 20:40 Dose: 100 mg Documented by: Ceftazidime 1 gm/ Sodium (Chloride) 50 mls @ 100 mls/hr IV Q12H [facility] Last Admin: 05/10/20 22:31 Dose: 100 mls/hr Documented by: Levofloxacin/Dextrose 750 mg/ (Premix) 150 mls @ 100 mls/hr IV Q48H [facility] Last Admin: 05/09/20 17:10 Dose: 100 mls/hr Documented by: Vancomycin HCl 1 gm/ Sodium (Chloride) 250 mls @ 166.667 mls/hr IV Q24H [facility] Last Admin: 05/10/20 16:28 Dose: 166.667 mls/hr Documented by: Insulin Glargine (Lantus Solostar) 20 units SUBCUT BEDTIME [facility] Last Admin: 05/10/20 20:44 Dose: 20 unit Documented by: Insulin Human Lispro (Humalog) 0 unit SUBCUT QIDACANDBED [facility]; Protocol Last Admin: 05/11/20 07:41 Dose: Not Given Documented by: Lactobacillus Rhamnosus (Culturelle) 1 cap PO BID [facility] Last Admin: 05/11/20 10:13 Dose: 1 cap Documented by: Lorazepam (Ativan) 0.5 mg IVPUSH Q2H PRN PRN Reason: Anxiety Last Admin: 05/06/20 22:03 Dose: 0.5 mg Documented by: Melatonin (Melatonin) 9 mg PO BEDTIME PRN PRN Reason: Insomnia Last Admin: 05/10/20 21:34 Dose: 9 mg Documented by: Ondansetron HCl (Zofran) 4 mg IV Q4H PRN PRN Reason: Nausea/Vomiting Oxycodone HCl (Oxycodone) 5 mg PO Q4H PRN PRN Reason: Pain Last Admin: 05/11/20 01:47 Dose: 5 mg Documented by: Polyethylene Glycol (Miralax) 17 gm PO DAILY PRN PRN Reason: Constipation Last Admin: 04/21/20 08:06 Dose: 17 gm Documented by: Sodium Chloride (Saline Flush) 10 ml FLUSH ASDIRECTED PRN PRN Reason: Keep Vein Open Last Admin: 04/15/20 09:45 Dose: 10 ml Documented by: Sodium Chloride ([place] Nasal [place]) 0 ml ABRAHAN Q4H [facility] Last Admin: 05/11/20 10:15 Dose: 1 sprays Documented by: Sodium Chloride ([place] Saline Nasal Gel) 0 gm ABRAHAN QID [facility] Last Admin: 05/11/20 10:14 Dose: 1 applic Documented by: Discontinued Medications Acetaminophen (Tylenol) 650 mg PO ONCALL ONE Stop: 04/13/20 16:31 Last Admin: 04/13/20 17:02 Dose: 650 mg Documented by: Acetaminophen (Tylenol) 650 mg PO ONCALL ONE Stop: 04/14/20 14:31 Last Admin: 04/14/20 15:56 Dose: 650 mg Documented by: Acetaminophen (Tylenol) 650 mg PO ONCALL ONE Stop: 04/15/20 10:31 Last Admin: 04/15/20 09:44 Dose: 650 mg Documented by: Acetaminophen (Tylenol) 650 mg PO ONCALL ONE Stop: 04/16/20 09:01 Last Admin: 04/16/20 09:28 Dose: 650 mg Documented by: Albuterol (Proventil Neb Soln) 2.5 mg NEB Q4H PRN PRN Reason: Shortness Of Breath/wheezing Last Admin: 04/15/20 20:23 Dose: 2.5 mg Documented by: Benzocaine/Menthol (Cepacol Sore Throat) 1 lozenge MUCMEM ASDIRECTED PRN PRN Reason: SORE THROAT Benzocaine/Menthol (Cepacol Sore Throat) Confirm Administered Dose 1 lozenge .ROUTE .STK-MED ONE Stop: 04/12/20 21:32 Last Admin: 04/12/20 22:57 Dose: Not Given Documented by: Bisacodyl (Dulcolax) 5 mg PO DAILY [facility] Last Admin: 04/21/20 11:06 Dose: 5 mg Documented by: Dexamethasone (Dexamethasone) 6 mg IVPUSH ONETIME ONE Stop: 04/11/20 17:50 Last Admin: 04/11/20 18:08 Dose: 6 mg Documented by: Dexamethasone (Dexamethasone) Confirm Administered Dose 4 mg .ROUTE .STK-MED ONE Stop: 04/11/20 18:01 Last Admin: 04/11/20 18:11 Dose: Not Given Documented by: Dexamethasone (Decadron) 6 mg IVPUSH Q24H [facility] Last Admin: 04/25/20 19:41 Dose: 6 mg Documented by: Dexamethasone (Decadron) 6 mg IVPUSH Q24H [facility] Stop: 05/10/20 11:01 Last Admin: 05/10/20 10:39 Dose: 6 mg Documented by: Diphenhydramine HCl (Benadryl) 25 mg IVPUSH ONCALL ONE Stop: 04/13/20 16:31 Last Admin: 04/13/20 17:02 Dose: 25 mg Documented by: Diphenhydramine HCl (Benadryl) 25 mg IVPUSH ONCALL ONE Stop: 04/14/20 14:31 Last Admin: 04/14/20 15:56 Dose: 25 mg Documented by: Diphenhydramine HCl (Benadryl) 25 mg PO ONCALL ONE Stop: 04/15/20 10:31 Last Admin: 04/15/20 09:46 Dose: 25 mg Documented by: Diphenhydramine HCl (Benadryl) 25 mg PO ONCALL ONE Stop: 04/16/20 09:01 Last Admin: 04/16/20 09:28 Dose: 25 mg Documented by: Enoxaparin Sodium (Lovenox) 30 mg SUBCUT DAILY [facility] Last Admin: 04/11/20 21:39 Dose: 30 mg Documented by: Enoxaparin Sodium (Lovenox) 30 mg SUBCUT BEDTIME [facility] Last Admin: 04/22/20 20:11 Dose: 30 mg Documented by: Enoxaparin Sodium (Lovenox) 70 mg SUBCUT Q24H [facility] Last Admin: 05/03/20 15:26 Dose: 70 mg Documented by: Furosemide (Lasix) 40 mg IVPUSH NOW ONE Stop: 04/16/20 12:01 Last Admin: 04/16/20 12:26 Dose: 40 mg Documented by: Furosemide (Lasix) 40 mg IV ONETIME ONE Stop: 04/22/20 12:01 Last Admin: 04/22/20 12:01 Dose: 40 mg Documented by: Furosemide (Lasix) 40 mg IVPUSH ONETIME ONE Stop: 04/22/20 21:16 Last Admin: 04/22/20 21:46 Dose: 40 mg Documented by: Furosemide (Lasix) 40 mg IVPUSH ONETIME ONE Stop: 04/24/20 18:17 Last Admin: 04/24/20 18:39 Dose: 40 mg Documented by: Furosemide (Lasix) 40 mg IVPUSH NOW ONE Stop: 04/28/20 17:16 Last Admin: 04/28/20 18:42 Dose: 40 mg Documented by: Furosemide (Lasix) 40 mg IVPUSH NOW ONE Stop: 04/29/20 08:31 Last Admin: 04/29/20 09:28 Dose: 40 mg Documented by: Furosemide (Lasix) 40 mg IVPUSH NOW ONE Stop: 05/01/20 08:41 Last Admin: 05/01/20 08:37 Dose: 40 mg Documented by: Furosemide (Lasix) 20 mg IVPUSH ONETIME ONE Stop: 05/05/20 10:31 Last Admin: 05/05/20 11:08 Dose: 20 mg Documented by: Furosemide (Lasix) 40 mg IV ONETIME ONE Stop: 05/07/20 10:31 Last Admin: 05/07/20 10:45 Dose: 40 mg Documented by: Furosemide (Lasix) 40 mg IVPUSH DAILY [facility] Stop: 05/08/20 09:01 Last Admin: 05/08/20 10:09 Dose: 40 mg Documented by: Sodium Chloride (Normal Saline) 1,000 mls @ 1,000 mls/hr IV ASDIRECTED [facility] Last Admin: 04/11/20 17:14 Dose: 1,000 mls/hr Documented by: Sodium Chloride (Normal Saline) 1,000 mls @ 50 mls/hr IV ASDIRECTED [facility] Last Admin: 04/11/20 22:32 Dose: 50 mls/hr Documented by: Sodium Chloride (Normal Saline) 250 mls @ 20 mls/hr IV ASDIRECTED [facility] Last Admin: 04/13/20 17:55 Dose: 20 mls/hr Documented by: Remdesivir 200 mg/ Sodium (Chloride) 250 mls @ 250 mls/hr IV ONETIME ONE Stop: 04/22/20 14:59 Last Admin: 04/22/20 14:23 Dose: 250 mls/hr Documented by: Remdesivir 100 mg/ Sodium (Chloride) 100 mls @ 100 mls/hr IV Q24H [facility] Stop: 04/26/20 14:59 Last Admin: 04/24/20 13:38 Dose: 100 mls/hr Documented by: Levofloxacin/Dextrose 750 mg/ (Premix) 150 mls @ 100 mls/hr IV Q48H [facility] Last Admin: 04/30/20 11:40 Dose: 100 mls/hr Documented by: Vancomycin HCl 1 gm/ Sodium (Chloride) 250 mls @ 166.667 mls/hr IV Q24H [facility] Last Admin: 05/01/20 13:26 Dose: 166.667 mls/hr Documented by: Meropenem 1 gm/ Sodium (Chloride) 100 mls @ 200 mls/hr IV Q12H [facility] Last Admin: 05/01/20 04:01 Dose: 200 mls/hr Documented by: Ceftriaxone Sodium 1 gm/ (Sodium Chloride) 50 mls @ 100 mls/hr IV Q24H [facility] Last Admin: 05/04/20 14:41 Dose: 100 mls/hr Documented by: Doxycycline Hyclate 100 mg/ (Sodium Chloride) 100 mls @ 100 mls/hr IV Q12H [facility] Last Admin: 05/07/20 11:57 Dose: 100 mls/hr Documented by: Vancomycin HCl 1.4 gm/ Sodium (Chloride) 250 mls @ 150 mls/hr IV ONETIME ONE Stop: 05/07/20 17:39 Last Admin: 05/07/20 15:25 Dose: 150 mls/hr Documented by: Insulin Glargine (Lantus Solostar) 26 units SUBCUT BEDTIME [facility] Last Admin: 04/11/20 23:35 Dose: Not Given Documented by: Insulin Glargine (Lantus Solostar) 24 units SUBCUT BEDTIME [facility] Last Admin: 04/11/20 22:33 Dose: 24 units Documented by: Insulin Glargine (Lantus Solostar) 24 units SUBCUT BEDTIME [facility] Last Admin: 05/05/20 22:35 Dose: 24 units Documented by: Insulin Human Lispro (Humalog) 0 unit SUBCUT QIDACANDBED [facility]; Protocol Last Admin: 05/02/20 17:46 Dose: 2 units Documented by: Insulin Human Lispro (Humalog) 0 unit SUBCUT QIDACANDBED [facility]; Protocol Last Admin: 05/02/20 08:24 Dose: Not Given Documented by: Lorazepam (Ativan) 0.5 mg IVPUSH Q2H PRN PRN Reason: Anxiety Last Admin: 04/30/20 21:00 Dose: 0.5 mg Documented by: Magnesium Hydroxide (Milk Of Magnesia) 30 ml PO DAILY [facility] Last Admin: 04/21/20 11:06 Dose: 30 ml Documented by: Senna/Docusate Sodium (Senna Plus) 1 tab PO BID [facility] Last Admin: 04/21/20 11:06 Dose: 1 tab Documented by: Sodium Polystyrene Sulfonate (Kayexalate) 15 gm PO ONETIME ONE Stop: 04/22/20 10:01 Last Admin: 04/22/20 11:34 Dose: 15 gm Documented by: Tamoxifen Citrate (Nolvadex) 20 mg PO DAILY [facility] Last Admin: 05/05/20 11:09 Dose: Not Given Documented by: Vancomycin HCl (Vancomycin) 1 gm IV .PHARMACY TO DOSE [facility] Stop: 04/30/20 12:30 - Exam Quality Assessment: Supplemental Oxygen, DVT Prophylaxis General: Alert, Oriented, Cooperative, Mild Distress Lungs: Clear to Auscultation, Normal Respiratory Effort, Decreased Breath Sounds Cardiovascular: Regular Rate, Regular Rhythm, No Murmurs GI/Abdominal Exam: Soft, Non-Tender, No Organomegaly, No Distention Extremities: Non-Tender, No Pedal Edema Sepsis Event Note - Evaluation Sepsis Screening Result: No Definite Risk - Focused Exam Vital Signs: Vital Signs Temp Pulse Resp BP Pulse Ox 05/11/20 07:07 84 05/11/20 07:00 97 F 18 120/50 L 90 L 05/11/20 06:00 17 125/49 L 90 L 05/11/20 04:00 98 F 13 122/51 L 96 05/11/20 02:00 15 113/45 L 90 L 05/11/20 00:00 98.2 F 14 103/34 L 94 L - Problem List Review Problem List Initiated/Reviewed/Updated: Yes - My Orders Last 24 Hours: My Active Orders 05/11/20 10:14 Furosemide [Lasix] 40 mg IVPUSH NOW ONE 05/12/20 05:00 CBC WITH AUTO DIFF [HEME] Timed COMPREHENSIVE METABOLIC PN,CMP [CHEM] Timed 05/12/20 05:11 CRP [C-REACTIVE PROTEIN] [CHEM] AM D Dimer [D-DIMER QUANTITATIVE] [COAG] AM - Plan Plan:: ASSESSMENT AND PLAN BILATERAL PNEUMONIA SECONDARY TO [id number] has significant respiratory compromise. Feels somewhat better today but continues to require high level of supplemental oxygen. -Trial of additional steroids -Assess volume status daily -Supplemental oxygen as needed, wean as able -Increase activity as tolerated with physical therapy -Inhalers as needed -Transition to comfort cares if she worsens -Furosemide 40 mg IV today POSSIBLE BACTERIAL PNEUMONIA-increasing infiltrates noted on chest x-ray. On broad-spectrum antibiotics. -Antibiotic coverage with levofloxacin, ceftazidime and vancomycin -Scheduled nebulizers -Follow-up cultures ACUTE DVT, left popliteal vein-noted with lower extremity ultrasound. -Continue apixaban -Treat for 3 months (end mid July) CHRONIC KIDNEY DISEASE STAGE III-stable for the past week. -Closely monitor urine output and renal function TYPE 2 DIABETES MELLITUS-blood sugar levels have been elevated after steroids were restarted. -Continue usual dose of long-acting insulin -High-dose sliding scale insulin today -4 times daily glucometers MAINTENANCE ISSUES -DVT prophylaxis; apixaban -GI prophylaxis; not indicated -Nutrition; consistent carbohydrate diet DISPOSITION-anticipate discharge to home with home care versus [facility] after the hospital stay if she survives the hospital stay.
[2020-05-11] MEDS ORDERED: Furosemide 40 MG/4 ML VIAL IVPUSH ONE (10:20)
[2020-05-11] MEDS: Levofloxacin/Dextrose 5%-Water 750 MG in Premix Bag 1 BAG IV SCH (17:32)
[2020-05-11] MEDS: Acetaminophen 325 MG Tab PO PRN (19:22)
[2020-05-11] MEDS: Melatonin 3 MG Tab PO PRN (20:50)
[2020-05-11] MEDS: Gabapentin 100 MG Cap PO SCH (20:50)
[2020-05-11] MEDS: Insulin Glargine,Human Rec. Analog 100 Units/ML 3 ML Pen SUBCUT SCH (20:55)
[2020-05-11] MEDS: HYDROmorphone 0.5 MG/0.5 ML Syringe IVPUSH PRN (22:00)
[2020-05-12] MEDS: HYDROmorphone 0.5 MG/0.5 ML Syringe IVPUSH PRN ×3 (00:09→18:33)
[2020-05-12] MEDS: Sodium Chloride 0.65% Nasal Spray 45 ML Bottle NAS SCH ×5 (02:55→20:53)
[2020-05-12] MEDS: Aloe Vera/Sodium Chloride Gel 14.1 GM Tube NAS SCH ×4 (05:11→21:01)
[2020-05-12] MEDS: Insulin Lispro 100 Unit/ML 3 ML KwikPen SUBCUT SCH ×4 (06:41→22:02)
[2020-05-12] MEDS: Albuterol 0.083% 2.5 MG/3 ML Neb Soln NEB SCH ×4 (07:28→21:52)
[2020-05-12] MEDS: Apixaban 5 MG Tab PO SCH ×2 (09:44→20:53)
[2020-05-12] MEDS: Allopurinol 100 MG Tab PO SCH (09:44)
[2020-05-12] MEDS: Lactobacillus Rhamnosus GG (Probiotic) Cap PO SCH ×2 (09:44→20:53)
[2020-05-12] MEDS: Aspirin 81 MG Tab.Chew PO SCH (09:44)
[2020-05-12] MEDS: oxyCODONE 5 MG Tab PO PRN ×2 (09:55→20:53)
[2020-05-12] MEDS: LORazepam 2 MG/ML SDV IVPUSH PRN ×2 (09:56→22:09)
--- NOTE | 2020-05-12 11:27 | PCM.PN ---
- General Info Date of Service: 05/12/20 Subjective Update: Ms. Barnett has been stable over the last 24 hours, she appears to be more alert and interactive. Appetite seems to be slowly improving with modest improvement in strength. Respiratory status is stable with no significant improvement or worsening over the last 24 hours. Unfortunately she is now developed a decubitus ulcer. - Review of Systems General: Reports: Weakness, Fatigue. Denies: Fever, Chills Pulmonary: Reports: No Symptoms Cardiovascular: Reports: No Symptoms Gastrointestinal: Reports: No Symptoms - Patient Data Vitals - Most Recent: Last Vital Signs Temp 96.8 F L 05/12/20 04:55 Pulse 95 05/12/20 10:58 Resp 21 H 05/12/20 05:03 BP 101/45 L 05/12/20 03:00 Pulse Ox 95 05/12/20 07:28 Weight - Most Recent: 158 lb 11.725 oz I&O - Last 24 Hours: Intake & Output 05/11/20 05/12/20 05/12/20 22:59 06:59 14:59 Intake Total 610 480 Balance 610 480 Lab Results Last 24 Hours: Laboratory Results - last 24 hr 05/12/20 05/12/20 05/12/20 Range/Units 04:45 04:45 04:45 WBC 9.0 (4.5-11.0) K/uL RBC 3.10 L (3.30-5.50) M/uL Hgb 9.5 L (12.0-15.0) g/dL Hct 31.0 L (36.0-48.0) % MCV 100 H (80-98) fL MCH 31 (27-31) pg MCHC 31 L (32-36) % Plt Count 264 (150-400) K/uL Neut % (Auto) 75 H (36-66) % Lymph % (Auto) 17 L (24-44) % Blanco % (Auto) 7 H (2-6) % Eos % (Auto) 1 L (2-4) % Baso % (Auto) 0 (0-1) % D-Dimer, Quantitative 680.96 H (0.0-500.0) ng/mL Sodium 138 L (140-148) mmol/L Potassium 4.1 (3.6-5.2) mmol/L Chloride 102 (100-108) mmol/L Carbon Dioxide 30 (21-32) mmol/L Anion Gap 10.1 (5.0-14.0) mmol/L BUN 43 H (7-18) mg/dL Creatinine 1.2 H (0.6-1.0) mg/dL Est Cr Clr Drug Dosing 29.91 mL/min Estimated GFR (MDRD) 42 L (>60) Glucose 44 L* (74-106) mg/dL Calcium 8.8 (8.5-10.1) mg/dL Total Bilirubin 0.4 (0.2-1.0) mg/dL AST 70 H (15-37) U/L ALT 58 (12-78) U/L Alkaline Phosphatase 67 (46-116) U/L C-Reactive Protein (0.0-0.3) mg/dL Total Protein 5.0 L (6.4-8.2) g/dL Albumin 1.4 L (3.4-5.0) g/dL Globulin 3.6 H (2.3-3.5) g/dL Albumin/Globulin Ratio 0.4 L (1.2-2.2) 05/12/20 Range/Units 04:45 WBC (4.5-11.0) K/uL RBC (3.30-5.50) M/uL Hgb (12.0-15.0) g/dL Hct (36.0-48.0) % MCV (80-98) fL MCH (27-31) pg MCHC (32-36) % Plt Count (150-400) K/uL Neut % (Auto) (36-66) % Lymph % (Auto) (24-44) % Blanco % (Auto) (2-6) % Eos % (Auto) (2-4) % Baso % (Auto) (0-1) % D-Dimer, Quantitative (0.0-500.0) ng/mL Sodium (140-148) mmol/L Potassium (3.6-5.2) mmol/L Chloride (100-108) mmol/L Carbon Dioxide (21-32) mmol/L Anion Gap (5.0-14.0) mmol/L BUN (7-18) mg/dL Creatinine (0.6-1.0) mg/dL Est Cr Clr Drug Dosing mL/min Estimated GFR (MDRD) (>60) Glucose (74-106) mg/dL Calcium (8.5-10.1) mg/dL Total Bilirubin (0.2-1.0) mg/dL AST (15-37) U/L ALT (12-78) U/L Alkaline Phosphatase (46-116) U/L C-Reactive Protein 1.32 H (0.0-0.3) mg/dL Total Protein (6.4-8.2) g/dL Albumin (3.4-5.0) g/dL Globulin (2.3-3.5) g/dL Albumin/Globulin Ratio (1.2-2.2) Med Orders - Current: Current Medications Acetaminophen (Tylenol) 650 mg PO Q4H PRN PRN Reason: Pain (Mild 1-3)/fever Last Admin: 05/11/20 19:22 Dose: 650 mg Documented by: Albuterol (Ventolin Hfa) 2 gm INH Q4H PRN PRN Reason: Shortness of Breath Last Admin: 04/21/20 19:08 Dose: 2 puff Documented by: Albuterol (Proventil Neb Soln) 2.[address] [facility] Last Admin: 05/12/20 10:56 Dose: 2.5 mg Documented by: Allopurinol (Zyloprim) [address] [facility] Last Admin: 05/12/20 09:44 Dose: 200 mg Documented by: Apixaban (Eliquis) [address] [facility] Last Admin: 05/12/20 09:44 Dose: 5 mg Documented by: Aspirin (Aspirin) [address] [facility] Last Admin: 05/12/20 09:44 Dose: 81 mg Documented by: Benzocaine/Menthol (Cepacol Sore Throat) 1 lozenge MUCMEM ASDIRECTED PRN PRN Reason: SORE THROAT Last Admin: 05/05/20 04:22 Dose: 1 lozenge Documented by: Dextrose (Glutose 15) 15 gm PO ONETIME PRN PRN Reason: Hypoglycemia Last Admin: 05/06/20 07:30 Dose: 15 gm Documented by: Dextrose/Water (Dextrose 50% In Water) 50 ml IV ONETIME PRN PRN Reason: Hypoglycemia Gabapentin (Neurontin) [address] [facility] Last Admin: 05/11/20 20:50 Dose: 100 mg Documented by: Hydromorphone HCl (Dilaudid) 0.5 mg IVPUSH Q2H PRN PRN Reason: Pain Last Admin: 05/12/20 02:56 Dose: 0.5 mg Documented by: Ceftazidime 1 gm/ Sodium (Chloride) 50 mls @ 100 mls/hr IV Q12H [facility] Last Admin: 05/11/20 23:14 Dose: 100 mls/hr Documented by: Levofloxacin/Dextrose 750 mg/ (Premix) 150 mls @ 100 mls/hr IV Q48H [facility] Last Admin: 05/11/20 17:32 Dose: 100 mls/hr Documented by: Vancomycin HCl 1 gm/ Sodium (Chloride) 250 mls @ 166.667 mls/hr IV Q24H [facility] Last Admin: 05/11/20 15:02 Dose: 166.667 mls/hr Documented by: Insulin Glargine (Lantus Solostar) [address] [facility] Last Admin: 05/11/20 20:55 Dose: 20 unit Documented by: Insulin Human Lispro (Humalog) [address] [facility]; Protocol Last Admin: 05/12/20 06:41 Dose: Not Given Documented by: Lactobacillus Rhamnosus (Culturelle) [address] [facility] Last Admin: 05/12/20 09:44 Dose: 1 cap Documented by: Lorazepam (Ativan) 0.5 mg IVPUSH Q2H PRN PRN Reason: Anxiety Last Admin: 05/12/20 09:56 Dose: 0.5 mg Documented by: Melatonin (Melatonin) 9 mg PO BEDTIME PRN PRN Reason: Insomnia Last Admin: 05/11/20 20:50 Dose: 9 mg Documented by: Ondansetron HCl (Zofran) 4 mg IV Q4H PRN PRN Reason: Nausea/Vomiting Oxycodone HCl (Oxycodone) 5 mg PO Q4H PRN PRN Reason: Pain Last Admin: 05/12/20 09:55 Dose: 5 mg Documented by: Polyethylene Glycol (Miralax) 17 gm PO DAILY PRN PRN Reason: Constipation Last Admin: 04/21/20 08:06 Dose: 17 gm Documented by: Sodium Chloride (Saline Flush) 10 ml FLUSH ASDIRECTED PRN PRN Reason: Keep Vein Open Last Admin: 04/15/20 09:45 Dose: 10 ml Documented by: Sodium Chloride ([place] Nasal [place]) 0 ml ABRAHAN Q4H NABILA Last Admin: 05/12/20 09:42 Dose: 1 sprays Documented by: Sodium Chloride ([place] Saline Nasal Gel) 0 gm ABRAHAN QID NABILA Last Admin: 05/12/20 10:09 Dose: 1 applic Documented by: Discontinued Medications Acetaminophen (Tylenol) 650 mg PO ONCALL ONE Stop: 04/13/20 16:31 Last Admin: 04/13/20 17:02 Dose: 650 mg Documented by: Acetaminophen (Tylenol) 650 mg PO ONCALL ONE Stop: 04/14/20 14:31 Last Admin: 04/14/20 15:56 Dose: 650 mg Documented by: Acetaminophen (Tylenol) 650 mg PO ONCALL ONE Stop: 04/15/20 10:31 Last Admin: 04/15/20 09:44 Dose: 650 mg Documented by: Acetaminophen (Tylenol) 650 mg PO ONCALL ONE Stop: 04/16/20 09:01 Last Admin: 04/16/20 09:28 Dose: 650 mg Documented by: Albuterol (Proventil Neb Soln) 2.5 mg NEB Q4H PRN PRN Reason: Shortness Of Breath/wheezing Last Admin: 04/15/20 20:23 Dose: 2.5 mg Documented by: Benzocaine/Menthol (Cepacol Sore Throat) 1 lozenge MUCMEM ASDIRECTED PRN PRN Reason: SORE THROAT Benzocaine/Menthol (Cepacol Sore Throat) Confirm Administered Dose 1 lozenge .ROUTE .STK-MED ONE Stop: 04/12/20 21:32 Last Admin: 04/12/20 22:57 Dose: Not Given Documented by: Bisacodyl (Dulcolax) 5 mg PO DAILY N[facility] Last Admin: 04/21/20 11:06 Dose: 5 mg Documented by: Dexamethasone (Dexamethasone) 6 mg IVPUSH ONETIME ONE Stop: 04/11/20 17:50 Last Admin: 04/11/20 18:08 Dose: 6 mg Documented by: Dexamethasone (Dexamethasone) Confirm Administered Dose 4 mg .ROUTE .STK-MED ONE Stop: 04/11/20 18:01 Last Admin: 04/11/20 18:11 Dose: Not Given Documented by: Dexamethasone (Decadron) [address] [facility] Last Admin: 04/25/20 19:41 Dose: 6 mg Documented by: Dexamethasone (Decadron) 6 mg IVPUSH Q24H [facility] Stop: 05/10/20 11:01 Last Admin: 05/10/20 10:39 Dose: 6 mg Documented by: Diphenhydramine HCl (Benadryl) 25 mg IVPUSH ONCALL ONE Stop: 04/13/20 16:31 Last Admin: 04/13/20 17:02 Dose: 25 mg Documented by: Diphenhydramine HCl (Benadryl) 25 mg IVPUSH ONCALL ONE Stop: 04/14/20 14:31 Last Admin: 04/14/20 15:56 Dose: 25 mg Documented by: Diphenhydramine HCl (Benadryl) 25 mg PO ONCALL ONE Stop: 04/15/20 10:31 Last Admin: 04/15/20 09:46 Dose: 25 mg Documented by: Diphenhydramine HCl (Benadryl) 25 mg PO ONCALL ONE Stop: 04/16/20 09:01 Last Admin: 04/16/20 09:28 Dose: 25 mg Documented by: Enoxaparin Sodium (Lovenox) [address] [facility] Last Admin: 04/11/20 21:39 Dose: 30 mg Documented by: Enoxaparin Sodium (Lovenox) [address] [facility] Last Admin: 04/22/20 20:11 Dose: 30 mg Documented by: Enoxaparin Sodium (Lovenox) [address] [facility] Last Admin: 05/03/20 15:26 Dose: 70 mg Documented by: Furosemide (Lasix) 40 mg IVPUSH NOW ONE Stop: 04/16/20 12:01 Last Admin: 04/16/20 12:26 Dose: 40 mg Documented by: Furosemide (Lasix) 40 mg IV ONETIME ONE Stop: 04/22/20 12:01 Last Admin: 04/22/20 12:01 Dose: 40 mg Documented by: Furosemide (Lasix) 40 mg IVPUSH ONETIME ONE Stop: 04/22/20 21:16 Last Admin: 04/22/20 21:46 Dose: 40 mg Documented by: Furosemide (Lasix) 40 mg IVPUSH ONETIME ONE Stop: 04/24/20 18:17 Last Admin: 04/24/20 18:39 Dose: 40 mg Documented by: Furosemide (Lasix) 40 mg IVPUSH NOW ONE Stop: 04/28/20 17:16 Last Admin: 04/28/20 18:42 Dose: 40 mg Documented by: Furosemide (Lasix) 40 mg IVPUSH NOW ONE Stop: 04/29/20 08:31 Last Admin: 04/29/20 09:28 Dose: 40 mg Documented by: Furosemide (Lasix) 40 mg IVPUSH NOW ONE Stop: 05/01/20 08:41 Last Admin: 05/01/20 08:37 Dose: 40 mg Documented by: Furosemide (Lasix) 20 mg IVPUSH ONETIME ONE Stop: 05/05/20 10:31 Last Admin: 05/05/20 11:08 Dose: 20 mg Documented by: Furosemide (Lasix) 40 mg IV ONETIME ONE Stop: 05/07/20 10:31 Last Admin: 05/07/20 10:45 Dose: 40 mg Documented by: Furosemide (Lasix) [address] [facility] Stop: 05/08/20 09:01 Last Admin: 05/08/20 10:09 Dose: 40 mg Documented by: Furosemide (Lasix) 40 mg IVPUSH NOW ONE Stop: 05/11/20 10:21 Last Admin: 05/11/20 11:40 Dose: 40 mg Documented by: Sodium Chloride (Normal Saline) 1,000 mls @ 1,000 mls/hr IV ASDIRECTED [facility] Last Admin: 04/11/20 17:14 Dose: 1,000 mls/hr Documented by: Sodium Chloride (Normal Saline) 1,000 mls @ 50 mls/hr IV ASDIRECTED [facility] Last Admin: 04/11/20 22:32 Dose: 50 mls/hr Documented by: Sodium Chloride (Normal Saline) 250 mls @ 20 mls/hr IV ASDIRECTED [facility] Last Admin: 04/13/20 17:55 Dose: 20 mls/hr Documented by: Remdesivir 200 mg/ Sodium (Chloride) 250 mls @ 250 mls/hr IV ONETIME ONE Stop: 04/22/20 14:59 Last Admin: 04/22/20 14:23 Dose: 250 mls/hr Documented by: Remdesivir 100 mg/ Sodium (Chloride) 100 mls @ 100 mls/hr IV Q24H [facility] Stop: 04/26/20 14:59 Last Admin: 04/24/20 13:38 Dose: 100 mls/hr Documented by: Levofloxacin/Dextrose 750 mg/ (Premix) 150 mls @ 100 mls/hr IV Q48H [facility] Last Admin: 04/30/20 11:40 Dose: 100 mls/hr Documented by: Vancomycin HCl 1 gm/ Sodium (Chloride) 250 mls @ 166.667 mls/hr IV Q24H [facility] Last Admin: 05/01/20 13:26 Dose: 166.667 mls/hr Documented by: Meropenem 1 gm/ Sodium (Chloride) 100 mls @ 200 mls/hr IV Q12H [facility] Last Admin: 05/01/20 04:01 Dose: 200 mls/hr Documented by: Ceftriaxone Sodium 1 gm/ (Sodium Chloride) 50 mls @ 100 mls/hr IV Q24H [facility] Last Admin: 05/04/20 14:41 Dose: 100 mls/hr Documented by: Doxycycline Hyclate 100 mg/ (Sodium Chloride) 100 mls @ 100 mls/hr IV Q12H [facility] Last Admin: 05/07/20 11:57 Dose: 100 mls/hr Documented by: Vancomycin HCl 1.4 gm/ Sodium (Chloride) 250 mls @ 150 mls/hr IV ONETIME ONE Stop: 05/07/20 17:39 Last Admin: 05/07/20 15:25 Dose: 150 mls/hr Documented by: Insulin Glargine (Lantus Solostar) [address] [facility] Last Admin: 04/11/20 23:35 Dose: Not Given Documented by: Insulin Glargine (Lantus Solostar) [address] [facility] Last Admin: 04/11/20 22:33 Dose: 24 units Documented by: Insulin Glargine (Lantus Solostar) [address] [facility] Last Admin: 05/05/20 22:35 Dose: 24 units Documented by: Insulin Human Lispro (Humalog) [address] [facility]; Protocol Last Admin: 05/02/20 17:46 Dose: 2 units Documented by: Insulin Human Lispro (Humalog) [address] [facility]; Protocol Last Admin: 05/02/20 08:24 Dose: Not Given Documented by: Lorazepam (Ativan) 0.5 mg IVPUSH Q2H PRN PRN Reason: Anxiety Last Admin: 04/30/20 21:00 Dose: 0.5 mg Documented by: Magnesium Hydroxide (Milk Of Magnesia) [address] [facility] Last Admin: 04/21/20 11:06 Dose: 30 ml Documented by: Senna/Docusate Sodium (Senna Plus) [address] [facility] Last Admin: 04/21/20 11:06 Dose: 1 tab Documented by: Sodium Polystyrene Sulfonate (Kayexalate) 15 gm PO ONETIME ONE Stop: 04/22/20 10:01 Last Admin: 04/22/20 11:34 Dose: 15 gm Documented by: Tamoxifen Citrate (Nolvadex) [address] [facility] Last Admin: 05/05/20 11:09 Dose: Not Given Documented by: Vancomycin HCl (Vancomycin) 1 gm IV .PHARMACY TO DOSE [facility] Stop: 04/30/20 12:30 - Exam Quality Assessment: DVT Prophylaxis General: Alert, Oriented, Cooperative, Mild Distress Lungs: Clear to Auscultation, Normal Respiratory Effort Cardiovascular: Regular Rate, Regular Rhythm, No Murmurs GI/Abdominal Exam: Soft, Non-Tender, No Organomegaly, No Distention Extremities: Non-Tender, No Pedal Edema Sepsis Event Note - Evaluation Sepsis Screening Result: No Definite Risk - Focused Exam Vital Signs: Vital Signs Temp Pulse Resp BP Pulse Ox Pulse Ox 05/12/20 10:58 95 05/12/20 07:28 80 95 05/12/20 05:13 87 L 05/12/20 05:03 21 H 90 L 05/12/20 04:55 96.8 F L 05/12/20 03:00 82 14 101/45 L 94 L 05/12/20 01:00 97.5 F 75 10 L 100/46 L 99 - Problem List Review Problem List Initiated/Reviewed/Updated: Yes - My Orders Last 24 Hours: My Active Orders 05/11/20 21:55 HYDROmorphone [Dilaudid] 0.5 mg IVPUSH Q2H PRN 05/12/20 11:21 Consult to Physician [CONS] Routine 05/12/20 11:22 Notify Provider Consults [RC] ASDIRECTED 05/13/20 05:00 CBC WITH AUTO DIFF [HEME] Timed COMPREHENSIVE METABOLIC PN,CMP [CHEM] Timed 05/13/20 05:11 CRP [C-REACTIVE PROTEIN] [CHEM] AM D Dimer [D-DIMER QUANTITATIVE] [COAG] AM - Plan Plan:: ASSESSMENT AND PLAN BILATERAL PNEUMONIA SECONDARY TO [id number]-fafsm has significant respiratory compromise. Feels somewhat better today but continues to require high level of supplemental oxygen. -Assess volume status daily -Supplemental oxygen as needed, wean as able -Increase activity as tolerated with physical therapy -Inhalers as needed -Transition to comfort cares if she worsens POSSIBLE BACTERIAL PNEUMONIA-increasing infiltrates noted on chest x-ray. On broad-spectrum antibiotics. -Antibiotic coverage with levofloxacin, ceftazidime and vancomycin -Scheduled nebulizers -Follow-up cultures DECUBITUS ULCER -Frequent turning and repositioning -Continue current management -Surgical consult Dr. Freedman for wound management ACUTE DVT, left popliteal vein-noted with lower extremity ultrasound. -Continue apixaban -Treat for 3 months (end mid July) CHRONIC KIDNEY DISEASE STAGE III-stable for the past week. -Closely monitor urine output and renal function TYPE 2 DIABETES MELLITUS-blood sugar levels have been elevated after steroids were restarted. -Continue usual dose of long-acting insulin -High-dose sliding scale insulin today -4 times daily glucometers MAINTENANCE ISSUES -DVT prophylaxis; apixaban -GI prophylaxis; not indicated -Nutrition; consistent carbohydrate diet DISPOSITION-anticipate discharge to home with home care versus prison after the hospital stay if she survives the hospital stay.
[2020-05-12] MEDS: Citalopram 10 MG Tab PO SCH (12:09)
[2020-05-12] MEDS: Gabapentin 100 MG Cap PO SCH (20:53)
[2020-05-12] MEDS: Insulin Glargine,Human Rec. Analog 100 Units/ML 3 ML Pen SUBCUT SCH (22:03)
[2020-05-13] MEDS: Sodium Chloride 0.65% Nasal Spray 45 ML Bottle NAS SCH ×7 (02:16→22:12)
[2020-05-13] MEDS: Aloe Vera/Sodium Chloride Gel 14.1 GM Tube NAS SCH ×4 (06:09→22:12)
[2020-05-13] MEDS ORDERED: Acetaminophen 325 MG Tab PO PRN (07:11)
[2020-05-13] MEDS ORDERED: Glucose Gel 15 GM in 37.5 GM Tube PO PRN (07:12)
[2020-05-13] MEDS ORDERED: 50% Dextrose in Water 50 ML Syringe IV PRN (07:12)
[2020-05-13] MEDS ORDERED: Ondansetron 4 MG/2 ML SDV IV PRN (07:13)
[2020-05-13] MEDS ORDERED: Sodium Chloride 0.9% 10 ML Syringe FLUSH PRN (07:14)
[2020-05-13] MEDS ORDERED: Polyethylene Glycol 3350 Powder 17 GM Packet PO PRN (07:14)
[2020-05-13] MEDS: oxyCODONE 5 MG Tab PO PRN (07:20)
[2020-05-13] MEDS: Albuterol 0.083% 2.5 MG/3 ML Neb Soln NEB SCH ×4 (07:45→21:41)
[2020-05-13] MEDS: Insulin Lispro 100 Unit/ML 3 ML KwikPen SUBCUT SCH ×4 (08:19→22:21)
[2020-05-13] MEDS ORDERED: Lidocaine 2% Jelly 30 ML Tube TOP PRN (08:50)
[2020-05-13] MEDS: Apixaban 5 MG Tab PO SCH ×2 (09:02→20:06)
[2020-05-13] MEDS: Aspirin 81 MG Tab.Chew PO SCH (09:02)
[2020-05-13] MEDS: Lactobacillus Rhamnosus GG (Probiotic) Cap PO SCH ×2 (09:03→20:06)
[2020-05-13] MEDS: Citalopram 10 MG Tab PO SCH (09:03)
[2020-05-13] MEDS: Allopurinol 100 MG Tab PO SCH (09:03)
[2020-05-13] MEDS ORDERED: Furosemide 20 MG/2 ML VIAL IVPUSH ONE (10:00)
--- NOTE | 2020-05-13 10:02 | PCM.PN ---
- General Info Date of Service: 05/13/20 Subjective Update: Ms. Barnett continues to show very slow improvement. Currently on supplemental oxygen at 13 L/min with adequate oxygenation. Slowly becoming stronger with improvement in appetite. Functional Status: Reports: Urinating - Review of Systems General: Reports: Weakness, Fatigue. Denies: Fever, Chills Pulmonary: Reports: Shortness of Breath. Denies: Cough, Sputum, Hemoptysis, Wheezing Cardiovascular: Reports: Dyspnea on Exertion. Denies: Chest Pain, Palpitations, Orthopnea, PND, Edema, Lightheadedness Gastrointestinal: Reports: No Symptoms Genitourinary: Reports: No Symptoms - Patient Data Vitals - Most Recent: Last Vital Signs Temp 97.5 F 05/13/20 08:00 Pulse 91 05/13/20 09:48 Resp 16 05/13/20 09:48 BP 92/36 L 05/13/20 09:48 Pulse Ox 92 L 05/13/20 09:48 Weight - Most Recent: 157 lb I&O - Last 24 Hours: Intake & Output 05/12/20 05/13/20 05/13/20 22:59 06:59 14:59 Intake Total 300 600 300 Balance 300 600 300 Lab Results Last 24 Hours: Laboratory Results - last 24 hr 05/13/20 05/13/20 05/13/20 Range/Units 04:10 04:10 04:10 WBC 6.0 (4.5-11.0) K/uL RBC 2.91 L (3.30-5.50) M/uL Hgb 8.8 L (12.0-15.0) g/dL Hct 28.9 L (36.0-48.0) % MCV 99 H (80-98) fL MCH 30 (27-31) pg MCHC 30 L (32-36) % Plt Count 213 (150-400) K/uL Neut % (Auto) 76 H (36-66) % Lymph % (Auto) 14 L (24-44) % [place] % (Auto) 8 H (2-6) % Eos % (Auto) 2 (2-4) % Baso % (Auto) 0 (0-1) % D-Dimer, Quantitative 676.82 H (0.0-500.0) ng/mL Sodium 136 L (140-148) mmol/L Potassium 4.4 (3.6-5.2) mmol/L Chloride 100 (100-108) mmol/L Carbon Dioxide 30 (21-32) mmol/L Anion Gap 10.4 (5.0-14.0) mmol/L BUN 34 H (7-18) mg/dL Creatinine 1.0 (0.6-1.0) mg/dL Est Cr Clr Drug Dosing 35.90 mL/min Estimated GFR (MDRD) 52 L (>60) Glucose 108 H (74-106) mg/dL Calcium 8.2 L (8.5-10.1) mg/dL Total Bilirubin 0.3 (0.2-1.0) mg/dL AST 46 H (15-37) U/L ALT 45 (12-78) U/L Alkaline Phosphatase 66 (46-116) U/L C-Reactive Protein (0.0-0.3) mg/dL Total Protein 4.3 L (6.4-8.2) g/dL Albumin 1.3 L (3.4-5.0) g/dL Globulin 3.0 (2.3-3.5) g/dL Albumin/Globulin Ratio 0.4 L (1.2-2.2) 05/13/20 Range/Units 04:10 WBC (4.5-11.0) K/uL RBC (3.30-5.50) M/uL Hgb (12.0-15.0) g/dL Hct (36.0-48.0) % MCV (80-98) fL MCH (27-31) pg MCHC (32-36) % Plt Count (150-400) K/uL Neut % (Auto) (36-66) % Lymph % (Auto) (24-44) % [place] % (Auto) (2-6) % Eos % (Auto) (2-4) % Baso % (Auto) (0-1) % D-Dimer, Quantitative (0.0-500.0) ng/mL Sodium (140-148) mmol/L Potassium (3.6-5.2) mmol/L Chloride (100-108) mmol/L Carbon Dioxide (21-32) mmol/L Anion Gap (5.0-14.0) mmol/L BUN (7-18) mg/dL Creatinine (0.6-1.0) mg/dL Est Cr Clr Drug Dosing mL/min Estimated GFR (MDRD) (>60) Glucose (74-106) mg/dL Calcium (8.5-10.1) mg/dL Total Bilirubin (0.2-1.0) mg/dL AST (15-37) U/L ALT (12-78) U/L Alkaline Phosphatase (46-116) U/L C-Reactive Protein 1.33 H (0.0-0.3) mg/dL Total Protein (6.4-8.2) g/dL Albumin (3.4-5.0) g/dL Globulin (2.3-3.5) g/dL Albumin/Globulin Ratio (1.2-2.2) Med Orders - Current: Current Medications Acetaminophen (Tylenol) 650 mg PO Q4H PRN PRN Reason: Pain (Mild 1-3)/fever Albuterol (Ventolin Hfa) 2 gm INH Q4H PRN PRN Reason: Shortness of Breath Last Admin: 04/21/20 19:08 Dose: 2 puff Documented by: Albuterol (Proventil Neb Soln) 2.5 mg NEB QIDRT [facility] Last Admin: 05/13/20 07:45 Dose: 2.5 mg Documented by: Allopurinol (Zyloprim) 200 mg PO DAILY [facility] Last Admin: 05/13/20 09:03 Dose: 200 mg Documented by: Apixaban (Eliquis) 5 mg PO BID [facility] Last Admin: 05/13/20 09:02 Dose: 5 mg Documented by: Aspirin (Aspirin) 81 mg PO DAILY [facility] Last Admin: 05/13/20 09:02 Dose: 81 mg Documented by: Benzocaine/Menthol (Cepacol Sore Throat) 1 lozenge MUCMEM ASDIRECTED PRN PRN Reason: SORE THROAT Stop: 06/12/20 23:59 Last Admin: 05/05/20 04:22 Dose: 1 lozenge Documented by: Citalopram Hydrobromide (Celexa) 10 mg PO DAILY [facility] Last Admin: 05/13/20 09:03 Dose: 10 mg Documented by: Dextrose (Glutose 15) 15 gm PO ONETIME PRN PRN Reason: Hypoglycemia Dextrose/Water (Dextrose 50% In Water) 50 ml IV ONETIME PRN PRN Reason: Hypoglycemia Furosemide (Lasix) 20 mg IVPUSH NOW ONE Stop: 05/13/20 09:56 Gabapentin (Neurontin) 100 mg PO BEDTIME [facility] Hydromorphone HCl (Dilaudid) 0.5 mg IVPUSH Q2H PRN PRN Reason: Pain Last Admin: 05/12/20 18:33 Dose: 0.5 mg Documented by: Ceftazidime 1 gm/ Sodium (Chloride) 50 mls @ 100 mls/hr IV Q12H [facility] Last Admin: 05/12/20 22:16 Dose: 100 mls/hr Documented by: Levofloxacin/Dextrose 750 mg/ (Premix) 150 mls @ 100 mls/hr IV Q48H [facility] Last Admin: 05/11/20 17:32 Dose: 100 mls/hr Documented by: Insulin Glargine (Lantus Solostar) 20 units SUBCUT BEDTIME [facility] Last Admin: 05/12/20 22:03 Dose: Not Given Documented by: Insulin Human Lispro (Humalog) 0 unit SUBCUT QIDACANDBED [facility]; Protocol Last Admin: 05/13/20 08:19 Dose: Not Given Documented by: Lactobacillus Rhamnosus (Culturelle) 1 cap PO BID [facility] Last Admin: 05/13/20 09:03 Dose: 1 cap Documented by: Lidocaine HCl (Xylocaine 2% Jelly) 0 ml TOP QID PRN PRN Reason: Pain Lorazepam (Ativan) 0.5 mg IVPUSH Q2H PRN PRN Reason: Anxiety Last Admin: 05/12/20 22:09 Dose: 0.5 mg Documented by: Melatonin (Melatonin) 9 mg PO BEDTIME PRN PRN Reason: Insomnia Stop: 06/12/20 23:59 Last Admin: 05/11/20 20:50 Dose: 9 mg Documented by: Ondansetron HCl (Zofran) 4 mg IV Q4H PRN PRN Reason: Nausea/Vomiting Oxycodone HCl (Oxycodone) 5 mg PO Q4H PRN PRN Reason: Pain Last Admin: 05/13/20 07:20 Dose: 5 mg Documented by: Polyethylene Glycol (Miralax) 17 gm PO DAILY PRN PRN Reason: Constipation Sodium Chloride ([place] Nasal Proctor) 0 ml ABRAHAN Q4H [facility] Last Admin: 05/13/20 07:21 Dose: 2 sprays Documented by: Sodium Chloride ([place] Saline Nasal Gel) 0 gm ABRAHAN QID [facility] Last Admin: 05/13/20 06:09 Dose: 1 applic Documented by: Sodium Chloride (Saline Flush) 10 ml FLUSH ASDIRECTED PRN PRN Reason: Keep Vein Open Discontinued Medications Acetaminophen (Tylenol) 650 mg PO Q4H PRN PRN Reason: Pain (Mild 1-3)/fever Last Admin: 05/11/20 19:22 Dose: 650 mg Documented by: Acetaminophen (Tylenol) 650 mg PO ONCALL ONE Stop: 04/13/20 16:31 Last Admin: 04/13/20 17:02 Dose: 650 mg Documented by: Acetaminophen (Tylenol) 650 mg PO ONCALL ONE Stop: 04/14/20 14:31 Last Admin: 04/14/20 15:56 Dose: 650 mg Documented by: Acetaminophen (Tylenol) 650 mg PO ONCALL ONE Stop: 04/15/20 10:31 Last Admin: 04/15/20 09:44 Dose: 650 mg Documented by: Acetaminophen (Tylenol) 650 mg PO ONCALL ONE Stop: 04/16/20 09:01 Last Admin: 04/16/20 09:28 Dose: 650 mg Documented by: Albuterol (Proventil Neb Soln) 2.5 mg NEB Q4H PRN PRN Reason: Shortness Of Breath/wheezing Last Admin: 04/15/20 20:23 Dose: 2.5 mg Documented by: Benzocaine/Menthol (Cepacol Sore Throat) 1 lozenge MUCMEM ASDIRECTED PRN PRN Reason: SORE THROAT Benzocaine/Menthol (Cepacol Sore Throat) Confirm Administered Dose 1 lozenge .ROUTE .STK-MED ONE Stop: 04/12/20 21:32 Last Admin: 04/12/20 22:57 Dose: Not Given Documented by: Bisacodyl (Dulcolax) 5 mg PO DAILY [facility] Last Admin: 04/21/20 11:06 Dose: 5 mg Documented by: Dexamethasone (Dexamethasone) 6 mg IVPUSH ONETIME ONE Stop: 04/11/20 17:50 Last Admin: 04/11/20 18:08 Dose: 6 mg Documented by: Dexamethasone (Dexamethasone) Confirm Administered Dose 4 mg .ROUTE .STK-MED ONE Stop: 04/11/20 18:01 Last Admin: 04/11/20 18:11 Dose: Not Given Documented by: Dexamethasone (Decadron) 6 mg IVPUSH Q24H [facility] Last Admin: 04/25/20 19:41 Dose: 6 mg Documented by: Dexamethasone (Decadron) 6 mg IVPUSH Q24H [facility] Stop: 05/10/20 11:01 Last Admin: 05/10/20 10:39 Dose: 6 mg Documented by: Dextrose (Glutose 15) 15 gm PO ONETIME PRN PRN Reason: Hypoglycemia Last Admin: 05/06/20 07:30 Dose: 15 gm Documented by: Dextrose/Water (Dextrose 50% In Water) 50 ml IV ONETIME PRN PRN Reason: Hypoglycemia Diphenhydramine HCl (Benadryl) 25 mg IVPUSH ONCALL ONE Stop: 04/13/20 16:31 Last Admin: 04/13/20 17:02 Dose: 25 mg Documented by: Diphenhydramine HCl (Benadryl) 25 mg IVPUSH ONCALL ONE Stop: 04/14/20 14:31 Last Admin: 04/14/20 15:56 Dose: 25 mg Documented by: Diphenhydramine HCl (Benadryl) 25 mg PO ONCALL ONE Stop: 04/15/20 10:31 Last Admin: 04/15/20 09:46 Dose: 25 mg Documented by: Diphenhydramine HCl (Benadryl) 25 mg PO ONCALL ONE Stop: 04/16/20 09:01 Last Admin: 04/16/20 09:28 Dose: 25 mg Documented by: Enoxaparin Sodium (Lovenox) 30 mg SUBCUT DAILY [facility] Last Admin: 04/11/20 21:39 Dose: 30 mg Documented by: Enoxaparin Sodium (Lovenox) 30 mg SUBCUT BEDTIME [facility] Last Admin: 04/22/20 20:11 Dose: 30 mg Documented by: Enoxaparin Sodium (Lovenox) 70 mg SUBCUT Q24H [facility] Last Admin: 05/03/20 15:26 Dose: 70 mg Documented by: Furosemide (Lasix) 40 mg IVPUSH NOW ONE Stop: 04/16/20 12:01 Last Admin: 04/16/20 12:26 Dose: 40 mg Documented by: Furosemide (Lasix) 40 mg IV ONETIME ONE Stop: 04/22/20 12:01 Last Admin: 04/22/20 12:01 Dose: 40 mg Documented by: Furosemide (Lasix) 40 mg IVPUSH ONETIME ONE Stop: 04/22/20 21:16 Last Admin: 04/22/20 21:46 Dose: 40 mg Documented by: Furosemide (Lasix) 40 mg IVPUSH ONETIME ONE Stop: 04/24/20 18:17 Last Admin: 04/24/20 18:39 Dose: 40 mg Documented by: Furosemide (Lasix) 40 mg IVPUSH NOW ONE Stop: 04/28/20 17:16 Last Admin: 04/28/20 18:42 Dose: 40 mg Documented by: Furosemide (Lasix) 40 mg IVPUSH NOW ONE Stop: 04/29/20 08:31 Last Admin: 04/29/20 09:28 Dose: 40 mg Documented by: Furosemide (Lasix) 40 mg IVPUSH NOW ONE Stop: 05/01/20 08:41 Last Admin: 05/01/20 08:37 Dose: 40 mg Documented by: Furosemide (Lasix) 20 mg IVPUSH ONETIME ONE Stop: 05/05/20 10:31 Last Admin: 05/05/20 11:08 Dose: 20 mg Documented by: Furosemide (Lasix) 40 mg IV ONETIME ONE Stop: 05/07/20 10:31 Last Admin: 05/07/20 10:45 Dose: 40 mg Documented by: Furosemide (Lasix) 40 mg IVPUSH DAILY [facility] Stop: 05/08/20 09:01 Last Admin: 05/08/20 10:09 Dose: 40 mg Documented by: Furosemide (Lasix) 40 mg IVPUSH NOW ONE Stop: 05/11/20 10:21 Last Admin: 05/11/20 11:40 Dose: 40 mg Documented by: Gabapentin (Neurontin) 100 mg PO BEDTIME [facility] Last Admin: 05/12/20 20:53 Dose: 100 mg Documented by: Sodium Chloride (Normal Saline) 1,000 mls @ 1,000 mls/hr IV ASDIRECTED [facility] Last Admin: 04/11/20 17:14 Dose: 1,000 mls/hr Documented by: Sodium Chloride (Normal Saline) 1,000 mls @ 50 mls/hr IV ASDIRECTED [facility] Last Admin: 04/11/20 22:32 Dose: 50 mls/hr Documented by: Sodium Chloride (Normal Saline) 250 mls @ 20 mls/hr IV ASDIRECTED [facility] Last Admin: 04/13/20 17:55 Dose: 20 mls/hr Documented by: Remdesivir 200 mg/ Sodium (Chloride) 250 mls @ 250 mls/hr IV ONETIME ONE Stop: 04/22/20 14:59 Last Admin: 04/22/20 14:23 Dose: 250 mls/hr Documented by: Remdesivir 100 mg/ Sodium (Chloride) 100 mls @ 100 mls/hr IV Q24H [facility] Stop: 04/26/20 14:59 Last Admin: 04/24/20 13:38 Dose: 100 mls/hr Documented by: Levofloxacin/Dextrose 750 mg/ (Premix) 150 mls @ 100 mls/hr IV Q48H [facility] Last Admin: 04/30/20 11:40 Dose: 100 mls/hr Documented by: Vancomycin HCl 1 gm/ Sodium (Chloride) 250 mls @ 166.667 mls/hr IV Q24H [facility] Last Admin: 05/01/20 13:26 Dose: 166.667 mls/hr Documented by: Meropenem 1 gm/ Sodium (Chloride) 100 mls @ 200 mls/hr IV Q12H [facility] Last Admin: 05/01/20 04:01 Dose: 200 mls/hr Documented by: Ceftriaxone Sodium 1 gm/ (Sodium Chloride) 50 mls @ 100 mls/hr IV Q24H [facility] Last Admin: 05/04/20 14:41 Dose: 100 mls/hr Documented by: Doxycycline Hyclate 100 mg/ (Sodium Chloride) 100 mls @ 100 mls/hr IV Q12H [facility] Last Admin: 05/07/20 11:57 Dose: 100 mls/hr Documented by: Vancomycin HCl 1.4 gm/ Sodium (Chloride) 250 mls @ 150 mls/hr IV ONETIME ONE Stop: 05/07/20 17:39 Last Admin: 05/07/20 15:25 Dose: 150 mls/hr Documented by: Vancomycin HCl 1 gm/ Sodium (Chloride) 250 mls @ 166.667 mls/hr IV Q24H [facility] Last Admin: 05/12/20 16:08 Dose: 166.667 mls/hr Documented by: Insulin Glargine (Lantus Solostar) 26 units SUBCUT BEDTIME [facility] Last Admin: 04/11/20 23:35 Dose: Not Given Documented by: Insulin Glargine (Lantus Solostar) 24 units SUBCUT BEDTIME [facility] Last Admin: 04/11/20 22:33 Dose: 24 units Documented by: Insulin Glargine (Lantus Solostar) 24 units SUBCUT BEDTIME [facility] Last Admin: 05/05/20 22:35 Dose: 24 units Documented by: Insulin Human Lispro (Humalog) 0 unit SUBCUT QIDACANDBED [facility]; Protocol Last Admin: 05/02/20 17:46 Dose: 2 units Documented by: Insulin Human Lispro (Humalog) 0 unit SUBCUT QIDACANDBED [facility]; Protocol Last Admin: 05/02/20 08:24 Dose: Not Given Documented by: Lorazepam (Ativan) 0.5 mg IVPUSH Q2H PRN PRN Reason: Anxiety Last Admin: 04/30/20 21:00 Dose: 0.5 mg Documented by: Magnesium Hydroxide (Milk Of Magnesia) 30 ml PO DAILY [facility] Last Admin: 04/21/20 11:06 Dose: 30 ml Documented by: Ondansetron HCl (Zofran) 4 mg IV Q4H PRN PRN Reason: Nausea/Vomiting Polyethylene Glycol (Miralax) 17 gm PO DAILY PRN PRN Reason: Constipation Last Admin: 04/21/20 08:06 Dose: 17 gm Documented by: Senna/Docusate Sodium (Senna Plus) 1 tab PO BID [facility] Last Admin: 04/21/20 11:06 Dose: 1 tab Documented by: Sodium Chloride (Saline Flush) 10 ml FLUSH ASDIRECTED PRN PRN Reason: Keep Vein Open Last Admin: 04/15/20 09:45 Dose: 10 ml Documented by: Sodium Polystyrene Sulfonate (Kayexalate) 15 gm PO ONETIME ONE Stop: 04/22/20 10:01 Last Admin: 04/22/20 11:34 Dose: 15 gm Documented by: Tamoxifen Citrate (Nolvadex) 20 mg PO DAILY [facility] Last Admin: 05/05/20 11:09 Dose: Not Given Documented by: Vancomycin HCl (Vancomycin) 1 gm IV .PHARMACY TO DOSE [facility] Stop: 04/30/20 12:30 - Exam Quality Assessment: Supplemental Oxygen, DVT Prophylaxis General: Alert, Oriented, Cooperative, Mild Distress Lungs: Clear to Auscultation, Normal Respiratory Effort Cardiovascular: Regular Rate, Regular Rhythm, No Murmurs GI/Abdominal Exam: Soft, Non-Tender, No Organomegaly, No Distention Extremities: Non-Tender, No Pedal Edema Sepsis Event Note - Evaluation Sepsis Screening Result: No Definite Risk - Focused Exam Vital Signs: Vital Signs Temp Pulse Resp BP Pulse Ox 05/13/20 09:48 91 16 92/36 L 92 L 05/13/20 09:03 96 97/46 L 05/13/20 08:00 97.5 F 88 15 84/32 L 92 L 05/13/20 06:00 13 100/45 L 93 L 05/13/20 04:00 96.8 F L 13 91/35 L 94 L 05/13/20 02:00 12 93/37 L 91 L 05/13/20 00:00 96 F L 91 13 94/43 L 92 L 05/12/20 22:00 14 111/45 L 93 L - Problem List Review Problem List Initiated/Reviewed/Updated: Yes - My Orders Last 24 Hours: My Active Orders 05/12/20 11:21 Consult to Physician [CONS] Routine 05/12/20 11:22 Notify Provider Consults [RC] ASDIRECTED 05/12/20 11:30 Citalopram [Celexa] 10 mg PO DAILY 05/13/20 07:11 Acetaminophen [TylenoL] 650 mg PO Q4H PRN 05/13/20 07:12 Dextrose 50% in Water 50 ml IV ONETIME PRN Dextrose [Glutose 15] 15 gm PO ONETIME PRN 05/13/20 07:13 Ondansetron [Zofran] 4 mg IV Q4H PRN 05/13/20 07:14 Sodium Chloride 0.9% [Saline Flush] 10 ml FLUSH ASDIRECTED PRN polyethylene glycoL 3350 [MiraLAX] 17 gm PO DAILY PRN 05/13/20 09:55 Furosemide [Lasix] 20 mg IVPUSH NOW ONE 05/13/20 21:00 Gabapentin [Neurontin] 100 mg PO BEDTIME 05/14/20 05:00 BASIC METABOLIC PANEL,BMP [CHEM] Timed CBC WITH AUTO DIFF [HEME] Timed - Plan Plan:: ASSESSMENT AND PLAN BILATERAL PNEUMONIA SECONDARY TO [id number] has significant respiratory compromise. Very slow improvement in respiratory status, currently requiring 13 L/min of oxygen via nasal cannula -Assess volume status daily -Supplemental oxygen as needed, wean as able -Increase activity as tolerated with physical therapy -Inhalers as needed -Transition to comfort cares if she worsens -Furosemide 20 mg IV today POSSIBLE BACTERIAL PNEUMONIA-increasing infiltrates noted on chest x-ray. On broad-spectrum antibiotics. -Continue IV vancomycin -Antibiotic coverage with levofloxacin and ceftazidime -Scheduled nebulizers -Follow-up cultures DECUBITUS ULCER -Frequent turning and repositioning -Continue current management per Dr. Freedman -Surgical follow-up with Dr. Freedman for wound management ACUTE DVT, left popliteal vein-noted with lower extremity ultrasound. -Continue apixaban -Treat for 3 months (end mid July) CHRONIC KIDNEY DISEASE STAGE III-stable for the past week. -Closely monitor urine output and renal function TYPE 2 DIABETES MELLITUS-blood sugar levels have been elevated after steroids were restarted. -Continue usual dose of long-acting insulin -High-dose sliding scale insulin today -4 times daily glucometers MAINTENANCE ISSUES -DVT prophylaxis; apixaban -GI prophylaxis; not indicated -Nutrition; consistent carbohydrate diet DISPOSITION-anticipate discharge to home with home care versus longterm after the hospital stay if she survives the hospital stay.
[2020-05-13] MEDS: Levofloxacin/Dextrose 5%-Water 750 MG in Premix Bag 1 BAG IV SCH (17:18)
[2020-05-13] MEDS: Gabapentin 100 MG Cap PO SCH (20:06)
[2020-05-13] MEDS: LORazepam 2 MG/ML SDV IVPUSH PRN (22:08)
[2020-05-13] MEDS ORDERED: Insulin Lispro 100 Units/ML 3 ML Vial SUBCUT ONE (22:16)
[2020-05-13] MEDS ORDERED: 50% Dextrose in Water 50 ML Syringe IVPUSH PRN (22:16)
[2020-05-13] MEDS ORDERED: Glucagon,Human Recombinant 1 MG Vial IM PRN (22:16)
[2020-05-13] MEDS: Insulin Glargine,Human Rec. Analog 100 Units/ML 3 ML Pen SUBCUT SCH (22:19)
[2020-05-14] MEDS: Sodium Chloride 0.65% Nasal Spray 45 ML Bottle NAS SCH ×5 (04:44→21:29)
[2020-05-14] MEDS: Aloe Vera/Sodium Chloride Gel 14.1 GM Tube NAS SCH ×4 (05:47→21:45)
[2020-05-14] MEDS: Albuterol 0.083% 2.5 MG/3 ML Neb Soln NEB SCH ×4 (07:01→21:45)
[2020-05-14] MEDS: Insulin Lispro 100 Unit/ML 3 ML KwikPen SUBCUT SCH ×4 (08:15→21:33)
[2020-05-14] MEDS: Aspirin 81 MG Tab.Chew PO SCH (08:18)
[2020-05-14] MEDS: Apixaban 5 MG Tab PO SCH ×2 (08:19→21:29)
[2020-05-14] MEDS: Lactobacillus Rhamnosus GG (Probiotic) Cap PO SCH ×2 (08:19→21:29)
[2020-05-14] MEDS: Citalopram 10 MG Tab PO SCH (08:19)
[2020-05-14] MEDS: Allopurinol 100 MG Tab PO SCH (08:19)
[2020-05-14] MEDS: oxyCODONE 5 MG Tab PO PRN ×2 (11:09→22:04)
--- NOTE | 2020-05-14 11:36 | CONS ---
DATE OF SERVICE: 05/13/2020 REFERRING PHYSICIAN: CONSULTING PHYSICIAN: Ace Freedman MD REASON FOR CONSULTATION: Evaluation of pressure ulcer, sacral. HISTORY OF PRESENT ILLNESS: This is a pleasant -[id number] female who has had an extended stay in the intensive care unit due to COVID related complications. The staff has been doing their best to rotate the patient; however, she has been very ill and with advanced issues. The patient is not intubated at this time. PAST MEDICAL HISTORY: Type 2 diabetes, COVID as described above, history of cataracts, appendectomy, cholecystectomy. SOCIAL HISTORY: She is not a smoker, but has an extensive smoking history. FAMILY HISTORY: Noncontributory. REVIEW OF SYSTEMS: GENERAL: Stable for condition. HEENT: No symptoms. RESPIRATORY: COVID and shortness of breath as described above. CARDIOVASCULAR: No current chest pain. GASTROINTESTINAL: Not applicable. GENITOURINARY: Not applicable. SKIN: Breakdown as reported. The remainder of systems reviewed and are stable. PHYSICAL EXAMINATION: VITAL SIGNS: Temperature 97.3, blood pressure 107/45, pulse 106, respirations 22, and 92% on 12 L. GENERAL: The patient is interactive, but age appropriate. HEENT: No symptoms. CARDIOVASCULAR: Regular rhythm and rate. RESPIRATORY: Poor inspiratory effort bilaterally. GASTROINTESTINAL: Abdomen nontender, nondistended. EXTREMITIES: She does move all four, but limited movement. Requires assistance for basic movement tasks. SKIN: Stage III pressure ulcer, sacral, without evidence of cellulitis. IMAGING: I did review the chest x-ray, which shows patchy infiltrates, consistent with previous COVID diagnosis. ASSESSMENT: Stage III pressure ulcer. PLAN: We will continue same dressing. Plan to continue offloading. We will also add lidocaine for pain management. The staff is to continue the every 2-hour rotation. They are to change the dressings every 3 days as needed for saturation. They may shower, soap and water may contact the wound. Continue the low air loss mattress. Early ambulation would be beneficial, but challenging at this time. Ace Freedman MD /[id number]
--- NOTE | 2020-05-14 13:38 | PCM.PN ---
- General Info Date of Service: 05/14/20 Subjective Update: Ms. Barnett has continued to show slow improvement over the last 24 hours. Appetite is been slowly better as well as overall strength. Oxygen requirement is now down to 10 to 11 L/min via high flow nasal cannula. Functional Status: Reports: Tolerating Diet, Urinating. Denies: Ambulating - Review of Systems General: Reports: Weakness, Fatigue. Denies: Fever, Chills Pulmonary: Reports: Shortness of Breath, Wheezing. Denies: Pleuritic Chest Pain, Cough, Sputum, Hemoptysis Cardiovascular: Reports: Dyspnea on Exertion. Denies: Chest Pain, Palpitations, Orthopnea, PND, Edema, Lightheadedness Gastrointestinal: Reports: No Symptoms - Patient Data Vitals - Most Recent: Last Vital Signs Temp 96.2 F L 05/14/20 12:00 Pulse 95 05/14/20 10:38 Resp 16 05/14/20 12:00 BP 111/43 L 05/14/20 12:00 Pulse Ox 89 L 05/14/20 12:00 Weight - Most Recent: 159 lb I&O - Last 24 Hours: Intake & Output 05/13/20 05/14/20 05/14/20 22:59 06:59 14:59 Intake Total 240 250 Balance 240 250 Lab Results Last 24 Hours: Laboratory Results - last 24 hr 05/14/20 05/14/20 Range/Units 04:55 04:55 WBC 7.3 (4.5-11.0) K/uL RBC 2.76 L (3.30-5.50) M/uL Hgb 8.6 L (12.0-15.0) g/dL Hct 27.2 L (36.0-48.0) % MCV 99 H (80-98) fL MCH 31 (27-31) pg MCHC 32 (32-36) % Plt Count 227 (150-400) K/uL Add Manual Diff Yes Neutrophils % (Manual) 72 H (36-66) % Band Neutrophils % 5 (5-11) % Lymphocytes % (Manual) 16 L (24-44) % Monocytes % (Manual) 7 H (2-6) % Sodium 135 L (140-148) mmol/L Potassium 3.8 (3.6-5.2) mmol/L Chloride 99 L (100-108) mmol/L Carbon Dioxide 29 (21-32) mmol/L Anion Gap 10.8 (5.0-14.0) mmol/L BUN 34 H (7-18) mg/dL Creatinine 1.1 H (0.6-1.0) mg/dL Est Cr Clr Drug Dosing 32.63 mL/min Estimated GFR (MDRD) 47 L (>60) Glucose 82 (74-106) mg/dL Calcium 8.3 L (8.5-10.1) mg/dL Med Orders - Current: Current Medications Acetaminophen (Tylenol) 650 mg PO Q4H PRN PRN Reason: Pain (Mild 1-3)/fever Albuterol (Ventolin Hfa) 2 gm INH Q4H PRN PRN Reason: Shortness of Breath Last Admin: 04/21/20 19:08 Dose: 2 puff Documented by: Albuterol (Proventil Neb Soln) 2.5 mg NEB QIDRT [facility] Last Admin: 05/14/20 10:38 Dose: 2.5 mg Documented by: Allopurinol (Zyloprim) 200 mg PO DAILY [facility] Last Admin: 05/14/20 08:19 Dose: 200 mg Documented by: Apixaban (Eliquis) 5 mg PO BID [facility] Last Admin: 05/14/20 08:19 Dose: 5 mg Documented by: Aspirin (Aspirin) 81 mg PO DAILY [facility] Last Admin: 05/14/20 08:18 Dose: 81 mg Documented by: Benzocaine/Menthol (Cepacol Sore Throat) 1 lozenge MUCMEM ASDIRECTED PRN PRN Reason: SORE THROAT Stop: 06/12/20 23:59 Last Admin: 05/05/20 04:22 Dose: 1 lozenge Documented by: Citalopram Hydrobromide (Celexa) 10 mg PO DAILY [facility] Last Admin: 05/14/20 08:19 Dose: 10 mg Documented by: Dextrose (Glutose 15) 15 gm PO ONETIME PRN PRN Reason: Hypoglycemia Dextrose/Water (Dextrose 50% In Water) 50 ml IVPUSH ASDIRECTED PRN PRN Reason: Hypoglycemia Furosemide (Lasix) 20 mg IVPUSH NOW ONE Stop: 05/14/20 13:35 Gabapentin (Neurontin) 100 mg PO BEDTIME [facility] Last Admin: 05/13/20 20:06 Dose: 100 mg Documented by: Glucagon (Glucagen) 1 mg IM ASDIRECTED PRN PRN Reason: Hypoglycemia Hydromorphone HCl (Dilaudid) 0.5 mg IVPUSH Q2H PRN PRN Reason: Pain Last Admin: 05/12/20 18:33 Dose: 0.5 mg Documented by: Ceftazidime 1 gm/ Sodium (Chloride) 50 mls @ 100 mls/hr IV Q12H [facility] Last Admin: 05/14/20 10:32 Dose: 100 mls/hr Documented by: Levofloxacin/Dextrose 750 mg/ (Premix) 150 mls @ 100 mls/hr IV Q48H [facility] Last Admin: 05/13/20 17:18 Dose: 100 mls/hr Documented by: Insulin Glargine (Lantus Solostar) 20 units SUBCUT BEDTIME [facility] Last Admin: 05/13/20 22:19 Dose: 20 unit Documented by: Insulin Human Lispro (Humalog) 0 unit SUBCUT QIDACANDBED [facility]; Protocol Last Admin: 05/14/20 12:31 Dose: 3 units Documented by: Lactobacillus Rhamnosus (Culturelle) 1 cap PO BID [facility] Last Admin: 05/14/20 08:19 Dose: 1 cap Documented by: Lidocaine HCl (Xylocaine 2% Jelly) 0 ml TOP QID PRN PRN Reason: Pain Last Admin: 05/14/20 11:09 Dose: 1 applic Documented by: Lorazepam (Ativan) 0.5 mg IVPUSH Q2H PRN PRN Reason: Anxiety Last Admin: 05/13/20 22:08 Dose: 0.5 mg Documented by: Melatonin (Melatonin) 9 mg PO BEDTIME PRN PRN Reason: Insomnia Stop: 06/12/20 23:59 Last Admin: 05/11/20 20:50 Dose: 9 mg Documented by: Ondansetron HCl (Zofran) 4 mg IV Q4H PRN PRN Reason: Nausea/Vomiting Oxycodone HCl (Oxycodone) 5 mg PO Q4H PRN PRN Reason: Pain Last Admin: 05/14/20 11:09 Dose: 5 mg Documented by: Polyethylene Glycol (Miralax) 17 gm PO DAILY PRN PRN Reason: Constipation Sodium Chloride ([place] Nasal [place]) 0 ml ABRAHAN Q4H [facility] Last Admin: 05/14/20 11:09 Dose: 1 sprays Documented by: Sodium Chloride ([place] Saline Nasal Gel) 0 gm ABRAHAN QID [facility] Last Admin: 05/14/20 10:27 Dose: 1 applic Documented by: Sodium Chloride (Saline Flush) 10 ml FLUSH ASDIRECTED PRN PRN Reason: Keep Vein Open Discontinued Medications Acetaminophen (Tylenol) 650 mg PO Q4H PRN PRN Reason: Pain (Mild 1-3)/fever Last Admin: 05/11/20 19:22 Dose: 650 mg Documented by: Acetaminophen (Tylenol) 650 mg PO ONCALL ONE Stop: 04/13/20 16:31 Last Admin: 04/13/20 17:02 Dose: 650 mg Documented by: Acetaminophen (Tylenol) 650 mg PO ONCALL ONE Stop: 04/14/20 14:31 Last Admin: 04/14/20 15:56 Dose: 650 mg Documented by: Acetaminophen (Tylenol) 650 mg PO ONCALL ONE Stop: 04/15/20 10:31 Last Admin: 04/15/20 09:44 Dose: 650 mg Documented by: Acetaminophen (Tylenol) 650 mg PO ONCALL ONE Stop: 04/16/20 09:01 Last Admin: 04/16/20 09:28 Dose: 650 mg Documented by: Albuterol (Proventil Neb Soln) 2.5 mg NEB Q4H PRN PRN Reason: Shortness Of Breath/wheezing Last Admin: 04/15/20 20:23 Dose: 2.5 mg Documented by: Benzocaine/Menthol (Cepacol Sore Throat) 1 lozenge MUCMEM ASDIRECTED PRN PRN Reason: SORE THROAT Benzocaine/Menthol (Cepacol Sore Throat) Confirm Administered Dose 1 lozenge .ROUTE .STK-MED ONE Stop: 04/12/20 21:32 Last Admin: 04/12/20 22:57 Dose: Not Given Documented by: Bisacodyl (Dulcolax) 5 mg PO DAILY [facility] Last Admin: 04/21/20 11:06 Dose: 5 mg Documented by: Dexamethasone (Dexamethasone) 6 mg IVPUSH ONETIME ONE Stop: 04/11/20 17:50 Last Admin: 04/11/20 18:08 Dose: 6 mg Documented by: Dexamethasone (Dexamethasone) Confirm Administered Dose 4 mg .ROUTE .STK-MED ONE Stop: 04/11/20 18:01 Last Admin: 04/11/20 18:11 Dose: Not Given Documented by: Dexamethasone (Decadron) 6 mg IVPUSH Q24H [facility] Last Admin: 04/25/20 19:41 Dose: 6 mg Documented by: Dexamethasone (Decadron) 6 mg IVPUSH Q24H [facility] Stop: 05/10/20 11:01 Last Admin: 05/10/20 10:39 Dose: 6 mg Documented by: Dextrose (Glutose 15) 15 gm PO ONETIME PRN PRN Reason: Hypoglycemia Last Admin: 05/06/20 07:30 Dose: 15 gm Documented by: Dextrose/Water (Dextrose 50% In Water) 50 ml IV ONETIME PRN PRN Reason: Hypoglycemia Dextrose/Water (Dextrose 50% In Water) 50 ml IV ONETIME PRN PRN Reason: Hypoglycemia Diphenhydramine HCl (Benadryl) 25 mg IVPUSH ONCALL ONE Stop: 04/13/20 16:31 Last Admin: 04/13/20 17:02 Dose: 25 mg Documented by: Diphenhydramine HCl (Benadryl) 25 mg IVPUSH ONCALL ONE Stop: 04/14/20 14:31 Last Admin: 04/14/20 15:56 Dose: 25 mg Documented by: Diphenhydramine HCl (Benadryl) 25 mg PO ONCALL ONE Stop: 04/15/20 10:31 Last Admin: 04/15/20 09:46 Dose: 25 mg Documented by: Diphenhydramine HCl (Benadryl) 25 mg PO ONCALL ONE Stop: 04/16/20 09:01 Last Admin: 04/16/20 09:28 Dose: 25 mg Documented by: Enoxaparin Sodium (Lovenox) 30 mg SUBCUT DAILY [facility] Last Admin: 04/11/20 21:39 Dose: 30 mg Documented by: Enoxaparin Sodium (Lovenox) 30 mg SUBCUT BEDTIME [facility] Last Admin: 04/22/20 20:11 Dose: 30 mg Documented by: Enoxaparin Sodium (Lovenox) 70 mg SUBCUT Q24H [facility] Last Admin: 05/03/20 15:26 Dose: 70 mg Documented by: Furosemide (Lasix) 40 mg IVPUSH NOW ONE Stop: 04/16/20 12:01 Last Admin: 04/16/20 12:26 Dose: 40 mg Documented by: Furosemide (Lasix) 40 mg IV ONETIME ONE Stop: 04/22/20 12:01 Last Admin: 04/22/20 12:01 Dose: 40 mg Documented by: Furosemide (Lasix) 40 mg IVPUSH ONETIME ONE Stop: 04/22/20 21:16 Last Admin: 04/22/20 21:46 Dose: 40 mg Documented by: Furosemide (Lasix) 40 mg IVPUSH ONETIME ONE Stop: 04/24/20 18:17 Last Admin: 04/24/20 18:39 Dose: 40 mg Documented by: Furosemide (Lasix) 40 mg IVPUSH NOW ONE Stop: 04/28/20 17:16 Last Admin: 04/28/20 18:42 Dose: 40 mg Documented by: Furosemide (Lasix) 40 mg IVPUSH NOW ONE Stop: 04/29/20 08:31 Last Admin: 04/29/20 09:28 Dose: 40 mg Documented by: Furosemide (Lasix) 40 mg IVPUSH NOW ONE Stop: 05/01/20 08:41 Last Admin: 05/01/20 08:37 Dose: 40 mg Documented by: Furosemide (Lasix) 20 mg IVPUSH ONETIME ONE Stop: 05/05/20 10:31 Last Admin: 05/05/20 11:08 Dose: 20 mg Documented by: Furosemide (Lasix) 40 mg IV ONETIME ONE Stop: 05/07/20 10:31 Last Admin: 05/07/20 10:45 Dose: 40 mg Documented by: Furosemide (Lasix) 40 mg IVPUSH DAILY [facility] Stop: 05/08/20 09:01 Last Admin: 05/08/20 10:09 Dose: 40 mg Documented by: Furosemide (Lasix) 40 mg IVPUSH NOW ONE Stop: 05/11/20 10:21 Last Admin: 05/11/20 11:40 Dose: 40 mg Documented by: Furosemide (Lasix) 20 mg IVPUSH NOW ONE Stop: 05/13/20 10:01 Last Admin: 05/13/20 10:13 Dose: 20 mg Documented by: Gabapentin (Neurontin) 100 mg PO BEDTIME [facility] Last Admin: 05/12/20 20:53 Dose: 100 mg Documented by: Sodium Chloride (Normal Saline) 1,000 mls @ 1,000 mls/hr IV ASDIRECTED [facility] Last Admin: 04/11/20 17:14 Dose: 1,000 mls/hr Documented by: Sodium Chloride (Normal Saline) 1,000 mls @ 50 mls/hr IV ASDIRECTED [facility] Last Admin: 04/11/20 22:32 Dose: 50 mls/hr Documented by: Sodium Chloride (Normal Saline) 250 mls @ 20 mls/hr IV ASDIRECTED [facility] Last Admin: 04/13/20 17:55 Dose: 20 mls/hr Documented by: Remdesivir 200 mg/ Sodium (Chloride) 250 mls @ 250 mls/hr IV ONETIME ONE Stop: 04/22/20 14:59 Last Admin: 04/22/20 14:23 Dose: 250 mls/hr Documented by: Remdesivir 100 mg/ Sodium (Chloride) 100 mls @ 100 mls/hr IV Q24H [facility] Stop: 04/26/20 14:59 Last Admin: 04/24/20 13:38 Dose: 100 mls/hr Documented by: Levofloxacin/Dextrose 750 mg/ (Premix) 150 mls @ 100 mls/hr IV Q48H [facility] Last Admin: 04/30/20 11:40 Dose: 100 mls/hr Documented by: Vancomycin HCl 1 gm/ Sodium (Chloride) 250 mls @ 166.667 mls/hr IV Q24H [facility] Last Admin: 05/01/20 13:26 Dose: 166.667 mls/hr Documented by: Meropenem 1 gm/ Sodium (Chloride) 100 mls @ 200 mls/hr IV Q12H [facility] Last Admin: 05/01/20 04:01 Dose: 200 mls/hr Documented by: Ceftriaxone Sodium 1 gm/ (Sodium Chloride) 50 mls @ 100 mls/hr IV Q24H [facility] Last Admin: 05/04/20 14:41 Dose: 100 mls/hr Documented by: Doxycycline Hyclate 100 mg/ (Sodium Chloride) 100 mls @ 100 mls/hr IV Q12H [facility] Last Admin: 05/07/20 11:57 Dose: 100 mls/hr Documented by: Vancomycin HCl 1.4 gm/ Sodium (Chloride) 250 mls @ 150 mls/hr IV ONETIME ONE Stop: 05/07/20 17:39 Last Admin: 05/07/20 15:25 Dose: 150 mls/hr Documented by: Vancomycin HCl 1 gm/ Sodium (Chloride) 250 mls @ 166.667 mls/hr IV Q24H [facility] Last Admin: 05/12/20 16:08 Dose: 166.667 mls/hr Documented by: Insulin Glargine (Lantus Solostar) 26 units SUBCUT BEDTIME [facility] Last Admin: 04/11/20 23:35 Dose: Not Given Documented by: Insulin Glargine (Lantus Solostar) 24 units SUBCUT BEDTIME [facility] Last Admin: 04/11/20 22:33 Dose: 24 units Documented by: Insulin Glargine (Lantus Solostar) 24 units SUBCUT BEDTIME [facility] Last Admin: 05/05/20 22:35 Dose: 24 units Documented by: Insulin Human Lispro (Humalog) 0 unit SUBCUT QIDACANDBED [facility]; Protocol Last Admin: 05/02/20 17:46 Dose: 2 units Documented by: Insulin Human Lispro (Humalog) 0 unit SUBCUT QIDACANDBED [facility]; Protocol Last Admin: 05/02/20 08:24 Dose: Not Given Documented by: Insulin Human Lispro (Humalog) 12 unit SUBCUT ONETIME ONE Stop: 05/13/20 22:17 Last Admin: 05/14/20 00:29 Dose: Not Given Documented by: Lorazepam (Ativan) 0.5 mg IVPUSH Q2H PRN PRN Reason: Anxiety Last Admin: 04/30/20 21:00 Dose: 0.5 mg Documented by: Magnesium Hydroxide (Milk Of Magnesia) 30 ml PO DAILY [facility] Last Admin: 04/21/20 11:06 Dose: 30 ml Documented by: Ondansetron HCl (Zofran) 4 mg IV Q4H PRN PRN Reason: Nausea/Vomiting Polyethylene Glycol (Miralax) 17 gm PO DAILY PRN PRN Reason: Constipation Last Admin: 04/21/20 08:06 Dose: 17 gm Documented by: Senna/Docusate Sodium (Senna Plus) 1 tab PO BID [facility] Last Admin: 04/21/20 11:06 Dose: 1 tab Documented by: Sodium Chloride (Saline Flush) 10 ml FLUSH ASDIRECTED PRN PRN Reason: Keep Vein Open Last Admin: 10/30/20 09:45 Dose: 10 ml Documented by: Sodium Polystyrene Sulfonate (Kayexalate) 15 gm PO ONETIME ONE Stop: 04/22/20 10:01 Last Admin: 04/22/20 11:34 Dose: 15 gm Documented by: Tamoxifen Citrate (Nolvadex) 20 mg PO DAILY [facility] Last Admin: 05/05/20 11:09 Dose: Not Given Documented by: Vancomycin HCl (Vancomycin) 1 gm IV .PHARMACY TO DOSE [facility] Stop: 04/30/20 12:30 - Exam Quality Assessment: Supplemental Oxygen, DVT Prophylaxis General: Alert, Oriented, Cooperative, Mild Distress Lungs: Normal Respiratory Effort, Decreased Breath Sounds, Wheezing. No: Crackles, Rales, Rhonchi Cardiovascular: Regular Rate, Regular Rhythm, No Murmurs GI/Abdominal Exam: Soft, Non-Tender, No Organomegaly, No Distention Extremities: Non-Tender, No Pedal Edema Sepsis Event Note - Evaluation Sepsis Screening Result: No Definite Risk - Focused Exam Vital Signs: Vital Signs Temp Pulse Resp BP Pulse Ox 05/14/20 12:00 96.2 F L 16 111/43 L 89 L 05/14/20 10:38 95 05/14/20 10:00 16 92/36 L 95 05/14/20 08:00 96.7 F L 15 93/31 L 95 05/14/20 07:01 84 05/14/20 06:00 17 97/41 L 95 05/14/20 04:00 97.1 F 14 115/48 L 94 L 05/14/20 02:00 13 110/47 L 95 - Problem List Review Problem List Initiated/Reviewed/Updated: Yes - My Orders Last 24 Hours: My Active Orders 05/13/20 21:00 Gabapentin [Neurontin] 100 mg PO BEDTIME 05/13/20 22:16 Dextrose 50% in Water 50 ml IVPUSH ASDIRECTED PRN Glucagon,Human Recombinant [GlucaGen] 1 mg IM ASDIRECTED PRN 05/14/20 13:34 Furosemide [Lasix] 20 mg IVPUSH NOW ONE 05/15/20 05:00 BASIC METABOLIC PANEL,BMP [CHEM] Timed CBC WITH AUTO DIFF [HEME] Timed - Plan Plan:: ASSESSMENT AND PLAN BILATERAL PNEUMONIA SECONDARY TO [id number] has significant respiratory compromise. Very slow improvement in respiratory status, currently requiring 11 L/min of oxygen via nasal cannula -Assess volume status daily -Supplemental oxygen as needed, wean as able -Increase activity as tolerated with physical therapy -Inhalers as needed -Transition to comfort cares if she worsens -Furosemide 20 mg IV today POSSIBLE BACTERIAL PNEUMONIA-increasing infiltrates noted on chest x-ray. On broad-spectrum antibiotics. -Discontinue ceftazidime -Antibiotic coverage with levofloxacin -Scheduled nebulizers -Follow-up cultures DECUBITUS ULCER -Frequent turning and repositioning -Continue current management per Dr. Freedman -Surgical follow-up with Dr. Freedman for wound management ACUTE DVT, left popliteal vein-noted with lower extremity ultrasound. -Continue apixaban -Treat for 3 months (end mid July) CHRONIC KIDNEY DISEASE STAGE III-stable for the past week. -Closely monitor urine output and renal function TYPE 2 DIABETES MELLITUS-blood sugar levels have been elevated after steroids were restarted. -Continue usual dose of long-acting insulin -High-dose sliding scale insulin today -4 times daily glucometers MAINTENANCE ISSUES -DVT prophylaxis; apixaban -GI prophylaxis; not indicated -Nutrition; consistent carbohydrate diet DISPOSITION-anticipate discharge to home with home care versus longterm after the hospital stay if she survives the hospital stay.
[2020-05-14] MEDS ORDERED: Furosemide 20 MG/2 ML VIAL IVPUSH ONE (13:45)
[2020-05-14] MEDS: Gabapentin 100 MG Cap PO SCH (21:29)
[2020-05-14] MEDS: Insulin Glargine,Human Rec. Analog 100 Units/ML 3 ML Pen SUBCUT SCH (21:34)
[2020-05-14] MEDS: LORazepam 2 MG/ML SDV IVPUSH PRN (22:03)
[2020-05-15] MEDS: Sodium Chloride 0.65% Nasal Spray 45 ML Bottle NAS SCH ×6 (04:34→20:10)
[2020-05-15] MEDS: Aloe Vera/Sodium Chloride Gel 14.1 GM Tube NAS SCH ×4 (05:53→21:04)
[2020-05-15] MEDS: Albuterol 0.083% 2.5 MG/3 ML Neb Soln NEB SCH ×4 (06:59→20:46)
[2020-05-15] MEDS: Insulin Lispro 100 Unit/ML 3 ML KwikPen SUBCUT SCH ×4 (08:07→20:50)
[2020-05-15] MEDS: Citalopram 10 MG Tab PO SCH (08:30)
[2020-05-15] MEDS: Aspirin 81 MG Tab.Chew PO SCH (08:30)
[2020-05-15] MEDS: Allopurinol 100 MG Tab PO SCH (08:31)
[2020-05-15] MEDS: Lactobacillus Rhamnosus GG (Probiotic) Cap PO SCH ×2 (08:31→20:43)
[2020-05-15] MEDS: Apixaban 5 MG Tab PO SCH ×2 (08:31→20:43)
--- NOTE | 2020-05-15 09:35 | PCM.PN ---
- General Info Date of Service: 05/15/20 Subjective Update: Ms. Barnett has continued to show slow improvement in respiratory status as well as strength and appetite. She reports that she physically feels better and notes less shortness of breath. Currently down to 9 L/min via nasal cannula on oxygen requirement. Functional Status: Reports: Tolerating Diet, Urinating. Denies: Ambulating - Review of Systems General: Reports: Weakness, Fatigue. Denies: Fever, Chills Pulmonary: Reports: Shortness of Breath. Denies: Pleuritic Chest Pain, Cough, Sputum, Hemoptysis, Wheezing Cardiovascular: Reports: Dyspnea on Exertion. Denies: Chest Pain, Palpitations, Orthopnea, PND, Edema, Lightheadedness Gastrointestinal: Reports: No Symptoms - Patient Data Vitals - Most Recent: Last Vital Signs Temp 96.8 F L 05/15/20 08:00 Pulse 87 05/15/20 06:59 Resp 20 05/15/20 08:00 BP 116/48 L 05/15/20 08:00 Pulse Ox 89 L 05/15/20 08:00 Weight - Most Recent: 159 lb I&O - Last 24 Hours: Intake & Output 05/14/20 05/15/20 05/15/20 22:59 06:59 14:59 Intake Total 1160 50 Balance 1160 50 Lab Results Last 24 Hours: Laboratory Results - last 24 hr 05/15/20 05/15/20 Range/Units 04:00 04:00 WBC 6.3 (4.5-11.0) K/uL RBC 2.54 L (3.30-5.50) M/uL Hgb 7.8 L (12.0-15.0) g/dL Hct 24.9 L (36.0-48.0) % MCV 98 (80-98) fL MCH 31 (27-31) pg MCHC 31 L (32-36) % Plt Count 226 (150-400) K/uL Neut % (Auto) 77 H (36-66) % Lymph % (Auto) 12 L (24-44) % Lynn % (Auto) 10 H (2-6) % Eos % (Auto) 2 (2-4) % Baso % (Auto) 0 (0-1) % Sodium 131 L (140-148) mmol/L Potassium 3.7 (3.6-5.2) mmol/L Chloride 98 L (100-108) mmol/L Carbon Dioxide 29 (21-32) mmol/L Anion Gap 7.7 (5.0-14.0) mmol/L BUN 39 H (7-18) mg/dL Creatinine 1.2 H (0.6-1.0) mg/dL Est Cr Clr Drug Dosing 29.91 mL/min Estimated GFR (MDRD) 42 L (>60) Glucose 241 H (74-106) mg/dL Calcium 7.9 L (8.5-10.1) mg/dL Med Orders - Current: Current Medications Acetaminophen (Tylenol) 650 mg PO Q4H PRN PRN Reason: Pain (Mild 1-3)/fever Albuterol (Ventolin Hfa) 2 gm INH Q4H PRN PRN Reason: Shortness of Breath Last Admin: 04/21/20 19:08 Dose: 2 puff Documented by: Albuterol (Proventil Neb Soln) 2.5 mg NEB QIDRT [facility] Last Admin: 05/15/20 06:59 Dose: 2.5 mg Documented by: Allopurinol (Zyloprim) 200 mg PO DAILY [facility] Last Admin: 05/15/20 08:31 Dose: 200 mg Documented by: Apixaban (Eliquis) 5 mg PO BID [facility] Last Admin: 05/15/20 08:31 Dose: 5 mg Documented by: Aspirin (Aspirin) 81 mg PO DAILY [facility] Last Admin: 05/15/20 08:30 Dose: 81 mg Documented by: Benzocaine/Menthol (Cepacol Sore Throat) 1 lozenge MUCMEM ASDIRECTED PRN PRN Reason: SORE THROAT Stop: 06/12/20 23:59 Last Admin: 05/05/20 04:22 Dose: 1 lozenge Documented by: Citalopram Hydrobromide (Celexa) 10 mg PO DAILY [facility] Last Admin: 05/15/20 08:30 Dose: 10 mg Documented by: Dextrose (Glutose 15) 15 gm PO ONETIME PRN PRN Reason: Hypoglycemia Dextrose/Water (Dextrose 50% In Water) 50 ml IVPUSH ASDIRECTED PRN PRN Reason: Hypoglycemia Gabapentin (Neurontin) 100 mg PO BEDTIME [facility] Last Admin: 05/14/20 21:29 Dose: 100 mg Documented by: Glucagon (Glucagen) 1 mg IM ASDIRECTED PRN PRN Reason: Hypoglycemia Hydromorphone HCl (Dilaudid) 0.5 mg IVPUSH Q2H PRN PRN Reason: Pain Last Admin: 05/12/20 18:33 Dose: 0.5 mg Documented by: Ceftazidime 1 gm/ Sodium (Chloride) 50 mls @ 100 mls/hr IV Q12H [facility] Last Admin: 05/14/20 22:16 Dose: 100 mls/hr Documented by: Levofloxacin/Dextrose 750 mg/ (Premix) 150 mls @ 100 mls/hr IV Q48H [facility] Last Admin: 05/13/20 17:18 Dose: 100 mls/hr Documented by: Insulin Glargine (Lantus Solostar) 20 units SUBCUT BEDTIME [facility] Last Admin: 05/14/20 21:34 Dose: 20 unit Documented by: Insulin Human Lispro (Humalog) 0 unit SUBCUT QIDACANDBED [facility]; Protocol Last Admin: 05/15/20 08:07 Dose: 3 units Documented by: Lactobacillus Rhamnosus (Culturelle) 1 cap PO BID [facility] Last Admin: 05/15/20 08:31 Dose: 1 cap Documented by: Lidocaine HCl (Xylocaine 2% Jelly) 0 ml TOP QID PRN PRN Reason: Pain Last Admin: 05/14/20 11:09 Dose: 1 applic Documented by: Lorazepam (Ativan) 0.5 mg IVPUSH Q2H PRN PRN Reason: Anxiety Last Admin: 05/14/20 22:03 Dose: 0.5 mg Documented by: Melatonin (Melatonin) 9 mg PO BEDTIME PRN PRN Reason: Insomnia Stop: 06/12/20 23:59 Last Admin: 05/11/20 20:50 Dose: 9 mg Documented by: Ondansetron HCl (Zofran) 4 mg IV Q4H PRN PRN Reason: Nausea/Vomiting Oxycodone HCl (Oxycodone) 5 mg PO Q4H PRN PRN Reason: Pain Last Admin: 05/14/20 22:04 Dose: 5 mg Documented by: Polyethylene Glycol (Miralax) 17 gm PO DAILY PRN PRN Reason: Constipation Sodium Chloride ([place] Nasal [place]) 0 ml ABRAHAN Q4H [facility] Last Admin: 05/15/20 08:11 Dose: 1 sprays Documented by: Sodium Chloride ([place] Saline Nasal Gel) 0 gm ABRAHAN QID [facility] Last Admin: 05/15/20 05:53 Dose: 1 applic Documented by: Sodium Chloride (Saline Flush) 10 ml FLUSH ASDIRECTED PRN PRN Reason: Keep Vein Open Discontinued Medications Acetaminophen (Tylenol) 650 mg PO Q4H PRN PRN Reason: Pain (Mild 1-3)/fever Last Admin: 05/11/20 19:22 Dose: 650 mg Documented by: Acetaminophen (Tylenol) 650 mg PO ONCALL ONE Stop: 04/13/20 16:31 Last Admin: 04/13/20 17:02 Dose: 650 mg Documented by: Acetaminophen (Tylenol) 650 mg PO ONCALL ONE Stop: 04/14/20 14:31 Last Admin: 04/14/20 15:56 Dose: 650 mg Documented by: Acetaminophen (Tylenol) 650 mg PO ONCALL ONE Stop: 04/15/20 10:31 Last Admin: 04/15/20 09:44 Dose: 650 mg Documented by: Acetaminophen (Tylenol) 650 mg PO ONCALL ONE Stop: 04/16/20 09:01 Last Admin: 04/16/20 09:28 Dose: 650 mg Documented by: Albuterol (Proventil Neb Soln) 2.5 mg NEB Q4H PRN PRN Reason: Shortness Of Breath/wheezing Last Admin: 04/15/20 20:23 Dose: 2.5 mg Documented by: Benzocaine/Menthol (Cepacol Sore Throat) 1 lozenge MUCMEM ASDIRECTED PRN PRN Reason: SORE THROAT Benzocaine/Menthol (Cepacol Sore Throat) Confirm Administered Dose 1 lozenge .ROUTE .STK-MED ONE Stop: 04/12/20 21:32 Last Admin: 04/12/20 22:57 Dose: Not Given Documented by: Bisacodyl (Dulcolax) 5 mg PO DAILY [facility] Last Admin: 04/21/20 11:06 Dose: 5 mg Documented by: Dexamethasone (Dexamethasone) 6 mg IVPUSH ONETIME ONE Stop: 04/11/20 17:50 Last Admin: 04/11/20 18:08 Dose: 6 mg Documented by: Dexamethasone (Dexamethasone) Confirm Administered Dose 4 mg .ROUTE .STK-MED ONE Stop: 04/11/20 18:01 Last Admin: 04/11/20 18:11 Dose: Not Given Documented by: Dexamethasone (Decadron) 6 mg IVPUSH Q24H [facility] Last Admin: 04/25/20 19:41 Dose: 6 mg Documented by: Dexamethasone (Decadron) 6 mg IVPUSH Q24H NABILA Stop: 05/10/20 11:01 Last Admin: 05/10/20 10:39 Dose: 6 mg Documented by: Dextrose (Glutose 15) 15 gm PO ONETIME PRN PRN Reason: Hypoglycemia Last Admin: 05/06/20 07:30 Dose: 15 gm Documented by: Dextrose/Water (Dextrose 50% In Water) 50 ml IV ONETIME PRN PRN Reason: Hypoglycemia Dextrose/Water (Dextrose 50% In Water) 50 ml IV ONETIME PRN PRN Reason: Hypoglycemia Diphenhydramine HCl (Benadryl) 25 mg IVPUSH ONCALL ONE Stop: 04/13/20 16:31 Last Admin: 04/13/20 17:02 Dose: 25 mg Documented by: Diphenhydramine HCl (Benadryl) 25 mg IVPUSH ONCALL ONE Stop: 04/14/20 14:31 Last Admin: 04/14/20 15:56 Dose: 25 mg Documented by: Diphenhydramine HCl (Benadryl) 25 mg PO ONCALL ONE Stop: 04/15/20 10:31 Last Admin: 04/15/20 09:46 Dose: 25 mg Documented by: Diphenhydramine HCl (Benadryl) 25 mg PO ONCALL ONE Stop: 04/16/20 09:01 Last Admin: 04/16/20 09:28 Dose: 25 mg Documented by: Enoxaparin Sodium (Lovenox) 30 mg SUBCUT DAILY [facility] Last Admin: 04/11/20 21:39 Dose: 30 mg Documented by: Enoxaparin Sodium (Lovenox) 30 mg SUBCUT BEDTIME [facility] Last Admin: 04/22/20 20:11 Dose: 30 mg Documented by: Enoxaparin Sodium (Lovenox) 70 mg SUBCUT Q24H [facility] Last Admin: 05/03/20 15:26 Dose: 70 mg Documented by: Furosemide (Lasix) 40 mg IVPUSH NOW ONE Stop: 04/16/20 12:01 Last Admin: 04/16/20 12:26 Dose: 40 mg Documented by: Furosemide (Lasix) 40 mg IV ONETIME ONE Stop: 04/22/20 12:01 Last Admin: 04/22/20 12:01 Dose: 40 mg Documented by: Furosemide (Lasix) 40 mg IVPUSH ONETIME ONE Stop: 04/22/20 21:16 Last Admin: 04/22/20 21:46 Dose: 40 mg Documented by: Furosemide (Lasix) 40 mg IVPUSH ONETIME ONE Stop: 04/24/20 18:17 Last Admin: 04/24/20 18:39 Dose: 40 mg Documented by: Furosemide (Lasix) 40 mg IVPUSH NOW ONE Stop: 04/28/20 17:16 Last Admin: 04/28/20 18:42 Dose: 40 mg Documented by: Furosemide (Lasix) 40 mg IVPUSH NOW ONE Stop: 04/29/20 08:31 Last Admin: 04/29/20 09:28 Dose: 40 mg Documented by: Furosemide (Lasix) 40 mg IVPUSH NOW ONE Stop: 05/01/20 08:41 Last Admin: 05/01/20 08:37 Dose: 40 mg Documented by: Furosemide (Lasix) 20 mg IVPUSH ONETIME ONE Stop: 05/05/20 10:31 Last Admin: 05/05/20 11:08 Dose: 20 mg Documented by: Furosemide (Lasix) 40 mg IV ONETIME ONE Stop: 05/07/20 10:31 Last Admin: 05/07/20 10:45 Dose: 40 mg Documented by: Furosemide (Lasix) 40 mg IVPUSH DAILY NABILA Stop: 05/08/20 09:01 Last Admin: 05/08/20 10:09 Dose: 40 mg Documented by: Furosemide (Lasix) 40 mg IVPUSH NOW ONE Stop: 05/11/20 10:21 Last Admin: 05/11/20 11:40 Dose: 40 mg Documented by: Furosemide (Lasix) 20 mg IVPUSH NOW ONE Stop: 05/13/20 10:01 Last Admin: 05/13/20 10:13 Dose: 20 mg Documented by: Furosemide (Lasix) 20 mg IVPUSH NOW ONE Stop: 05/14/20 13:46 Last Admin: 05/14/20 14:25 Dose: 20 mg Documented by: Gabapentin (Neurontin) 100 mg PO BEDTIME [facility] Last Admin: 05/12/20 20:53 Dose: 100 mg Documented by: Sodium Chloride (Normal Saline) 1,000 mls @ 1,000 mls/hr IV ASDIRECTED [facility] Last Admin: 04/11/20 17:14 Dose: 1,000 mls/hr Documented by: Sodium Chloride (Normal Saline) 1,000 mls @ 50 mls/hr IV ASDIRECTED [facility] Last Admin: 04/11/20 22:32 Dose: 50 mls/hr Documented by: Sodium Chloride (Normal Saline) 250 mls @ 20 mls/hr IV ASDIRECTED [facility] Last Admin: 04/13/20 17:55 Dose: 20 mls/hr Documented by: Remdesivir 200 mg/ Sodium (Chloride) 250 mls @ 250 mls/hr IV ONETIME ONE Stop: 04/22/20 14:59 Last Admin: 04/22/20 14:23 Dose: 250 mls/hr Documented by: Remdesivir 100 mg/ Sodium (Chloride) 100 mls @ 100 mls/hr IV Q24H [facility] Stop: 04/26/20 14:59 Last Admin: 04/24/20 13:38 Dose: 100 mls/hr Documented by: Levofloxacin/Dextrose 750 mg/ (Premix) 150 mls @ 100 mls/hr IV Q48H [facility] Last Admin: 04/30/20 11:40 Dose: 100 mls/hr Documented by: Vancomycin HCl 1 gm/ Sodium (Chloride) 250 mls @ 166.667 mls/hr IV Q24H [facility] Last Admin: 05/01/20 13:26 Dose: 166.667 mls/hr Documented by: Meropenem 1 gm/ Sodium (Chloride) 100 mls @ 200 mls/hr IV Q12H [facility] Last Admin: 05/01/20 04:01 Dose: 200 mls/hr Documented by: Ceftriaxone Sodium 1 gm/ (Sodium Chloride) 50 mls @ 100 mls/hr IV Q24H [facility] Last Admin: 05/04/20 14:41 Dose: 100 mls/hr Documented by: Doxycycline Hyclate 100 mg/ (Sodium Chloride) 100 mls @ 100 mls/hr IV Q12H [facility] Last Admin: 05/07/20 11:57 Dose: 100 mls/hr Documented by: Vancomycin HCl 1.4 gm/ Sodium (Chloride) 250 mls @ 150 mls/hr IV ONETIME ONE Stop: 05/07/20 17:39 Last Admin: 05/07/20 15:25 Dose: 150 mls/hr Documented by: Vancomycin HCl 1 gm/ Sodium (Chloride) 250 mls @ 166.667 mls/hr IV Q24H [facility] Last Admin: 05/12/20 16:08 Dose: 166.667 mls/hr Documented by: Insulin Glargine (Lantus Solostar) 26 units SUBCUT BEDTIME [facility] Last Admin: 04/11/20 23:35 Dose: Not Given Documented by: Insulin Glargine (Lantus Solostar) 24 units SUBCUT BEDTIME [facility] Last Admin: 04/11/20 22:33 Dose: 24 units Documented by: Insulin Glargine (Lantus Solostar) 24 units SUBCUT BEDTIME [facility] Last Admin: 05/05/20 22:35 Dose: 24 units Documented by: Insulin Human Lispro (Humalog) 0 unit SUBCUT QIDACANDBED [facility]; Protocol Last Admin: 05/02/20 17:46 Dose: 2 units Documented by: Insulin Human Lispro (Humalog) 0 unit SUBCUT QIDACANDBED [facility]; Protocol Last Admin: 05/02/20 08:24 Dose: Not Given Documented by: Insulin Human Lispro (Humalog) 12 unit SUBCUT ONETIME ONE Stop: 05/13/20 22:17 Last Admin: 05/14/20 00:29 Dose: Not Given Documented by: Lorazepam (Ativan) 0.5 mg IVPUSH Q2H PRN PRN Reason: Anxiety Last Admin: 04/30/20 21:00 Dose: 0.5 mg Documented by: Magnesium Hydroxide (Milk Of Magnesia) 30 ml PO DAILY [facility] Last Admin: 04/21/20 11:06 Dose: 30 ml Documented by: Ondansetron HCl (Zofran) 4 mg IV Q4H PRN PRN Reason: Nausea/Vomiting Polyethylene Glycol (Miralax) 17 gm PO DAILY PRN PRN Reason: Constipation Last Admin: 04/21/20 08:06 Dose: 17 gm Documented by: Senna/Docusate Sodium (Senna Plus) 1 tab PO BID [facility] Last Admin: 04/21/20 11:06 Dose: 1 tab Documented by: Sodium Chloride (Saline Flush) 10 ml FLUSH ASDIRECTED PRN PRN Reason: Keep Vein Open Last Admin: 04/15/20 09:45 Dose: 10 ml Documented by: Sodium Polystyrene Sulfonate (Kayexalate) 15 gm PO ONETIME ONE Stop: 04/22/20 10:01 Last Admin: 04/22/20 11:34 Dose: 15 gm Documented by: Tamoxifen Citrate (Nolvadex) 20 mg PO DAILY [facility] Last Admin: 05/05/20 11:09 Dose: Not Given Documented by: Vancomycin HCl (Vancomycin) 1 gm IV .PHARMACY TO DOSE NABILA Stop: 04/30/20 12:30 - Exam Quality Assessment: Supplemental Oxygen, DVT Prophylaxis General: Alert, Oriented, Cooperative, Mild Distress Lungs: Clear to Auscultation, Normal Respiratory Effort, Decreased Breath Sounds. No: Rales, Rhonchi, Wheezing Cardiovascular: Regular Rate, Regular Rhythm, No Murmurs GI/Abdominal Exam: Soft, Non-Tender, No Organomegaly, No Distention Extremities: Non-Tender, No Pedal Edema Sepsis Event Note - Evaluation Sepsis Screening Result: No Definite Risk - Focused Exam Vital Signs: Vital Signs Temp Pulse Resp BP Pulse Ox 05/15/20 08:00 96.8 F L 20 116/48 L 89 L 05/15/20 06:59 87 05/15/20 06:00 14 105/43 L 90 L 05/15/20 04:00 98.3 F 14 107/36 L 92 L 05/15/20 02:00 15 100/34 L 93 L 05/15/20 00:00 97.7 F 17 115/42 L 93 L 05/14/20 22:00 20 121/38 L 90 L - Problem List Review Problem List Initiated/Reviewed/Updated: Yes - My Orders Last 24 Hours: My Active Orders 05/16/20 05:00 BASIC METABOLIC PANEL,BMP [CHEM] Timed CBC WITH AUTO DIFF [HEME] Timed - Plan Plan:: ASSESSMENT AND PLAN BILATERAL PNEUMONIA SECONDARY TO [id number] to slowly improve, now down to 9 L/min via nasal cannula -Assess volume status daily -Supplemental oxygen as needed, wean as able -Increase activity as tolerated with physical therapy -Inhalers as needed -Transition to comfort cares if she worsens POSSIBLE BACTERIAL PNEUMONIA-increasing infiltrates noted on chest x-ray. On broad-spectrum antibiotics. -Antibiotic coverage with levofloxacin -Scheduled nebulizers -Follow-up cultures DECUBITUS ULCER -Frequent turning and repositioning -Continue current management per Dr. Freedman -Surgical follow-up with Dr. Freedman for wound management ACUTE DVT, left popliteal vein-noted with lower extremity ultrasound. -Continue apixaban -Treat for 3 months (end mid July) CHRONIC KIDNEY DISEASE STAGE III-creatinine slightly elevated over the last few days -Hold on diuretic therapy today -Closely monitor urine output and renal function TYPE 2 DIABETES MELLITUS-blood sugar levels have been elevated after steroids were restarted. -Continue usual dose of long-acting insulin -High-dose sliding scale insulin today -4 times daily glucometers MAINTENANCE ISSUES -DVT prophylaxis; apixaban -GI prophylaxis; not indicated -Nutrition; consistent carbohydrate diet DISPOSITION-anticipate discharge to home with home care versus custodial after the hospital stay if she survives the hospital stay.
[2020-05-15] MEDS: oxyCODONE 5 MG Tab PO PRN ×2 (11:42→20:43)
[2020-05-15] MEDS: Levofloxacin/Dextrose 5%-Water 750 MG in Premix Bag 1 BAG IV SCH (16:33)
[2020-05-15] MEDS: Gabapentin 100 MG Cap PO SCH (20:43)
[2020-05-15] MEDS: Insulin Glargine,Human Rec. Analog 100 Units/ML 3 ML Pen SUBCUT SCH (20:49)
[2020-05-15] MEDS: LORazepam 2 MG/ML SDV IVPUSH PRN (21:34)
[2020-05-16] MEDS: Sodium Chloride 0.65% Nasal Spray 45 ML Bottle NAS SCH ×7 (04:24→23:06)
[2020-05-16] MEDS: Aloe Vera/Sodium Chloride Gel 14.1 GM Tube NAS SCH ×4 (06:07→23:06)
[2020-05-16] MEDS: Albuterol 0.083% 2.5 MG/3 ML Neb Soln NEB SCH ×4 (07:15→20:55)
[2020-05-16] MEDS: Aspirin 81 MG Tab.Chew PO SCH (08:00)
[2020-05-16] MEDS: Allopurinol 100 MG Tab PO SCH (08:01)
[2020-05-16] MEDS: Lactobacillus Rhamnosus GG (Probiotic) Cap PO SCH ×2 (08:01→20:55)
[2020-05-16] MEDS: Apixaban 5 MG Tab PO SCH ×2 (08:01→20:55)
[2020-05-16] MEDS: Citalopram 10 MG Tab PO SCH (08:01)
[2020-05-16] MEDS: Insulin Lispro 100 Unit/ML 3 ML KwikPen SUBCUT SCH ×4 (08:07→20:51)
--- NOTE | 2020-05-16 09:35 | PCM.PN ---
- General Info Date of Service: 05/16/20 Subjective Update: No acute events overnight. Patient remains lethargic but does wake up long enough to provide short answers to questions. Seems more sleepy today than she has been. She is back up to 10 L of supplemental oxygen. Intake has not been very good today. She says that she is feeling okay and offers no acute complaints. She has not used noninvasive ventilation. Her son is at the bedside. Labs are stable. Blood pressure and heart rate have been stable. Functional Status: Reports: Pain Controlled, Tolerating Diet - Review of Systems General: Reports: Weakness Pulmonary: Reports: Cough - Patient Data Vitals - Most Recent: Last Vital Signs Temp 36.1 C 05/16/20 07:56 Pulse 90 05/15/20 14:26 Resp 15 05/16/20 07:56 BP 122/41 L 05/16/20 07:56 Pulse Ox 89 L 05/16/20 07:56 Weight - Most Recent: 72.121 kg I&O - Last 24 Hours: Intake & Output 05/15/20 05/16/20 05/16/20 22:59 06:59 14:59 Intake Total 240 300 Balance 240 300 Lab Results Last 24 Hours: Laboratory Results - last 24 hr 05/16/20 05/16/20 Range/Units 04:10 04:10 WBC 7.6 (4.5-11.0) K/uL RBC 2.58 L (3.30-5.50) M/uL Hgb 8.2 L (12.0-15.0) g/dL Hct 25.7 L (36.0-48.0) % MCV 100 H (80-98) fL MCH 32 H (27-31) pg MCHC 32 (32-36) % Plt Count 239 (150-400) K/uL Neut % (Auto) 80 H (36-66) % Lymph % (Auto) 7 L (24-44) % [place] % (Auto) 11 H (2-6) % Eos % (Auto) 1 L (2-4) % Baso % (Auto) 0 (0-1) % Sodium 133 L (140-148) mmol/L Potassium 4.0 (3.6-5.2) mmol/L Chloride 99 L (100-108) mmol/L Carbon Dioxide 31 (21-32) mmol/L Anion Gap 7.0 (5.0-14.0) mmol/L BUN 42 H (7-18) mg/dL Creatinine 1.2 H (0.6-1.0) mg/dL Est Cr Clr Drug Dosing 29.91 mL/min Estimated GFR (MDRD) 42 L (>60) Glucose 163 H (74-106) mg/dL Calcium 8.4 L (8.5-10.1) mg/dL Med Orders - Current: Current Medications Acetaminophen (Tylenol) 650 mg PO Q4H PRN PRN Reason: Pain (Mild 1-3)/fever Albuterol (Ventolin Hfa) 2 gm INH Q4H PRN PRN Reason: Shortness of Breath Last Admin: 04/21/20 19:08 Dose: 2 puff Documented by: Albuterol (Proventil Neb Soln) 2.5 mg NEB QIDRT [facility] Last Admin: 05/16/20 07:15 Dose: 2.5 mg Documented by: Allopurinol (Zyloprim) 200 mg PO DAILY [facility] Last Admin: 05/16/20 08:01 Dose: 200 mg Documented by: Apixaban (Eliquis) 5 mg PO BID [facility] Last Admin: 05/16/20 08:01 Dose: 5 mg Documented by: Aspirin (Aspirin) 81 mg PO DAILY [facility] Last Admin: 05/16/20 08:00 Dose: 81 mg Documented by: Benzocaine/Menthol (Cepacol Sore Throat) 1 lozenge MUCMEM ASDIRECTED PRN PRN Reason: SORE THROAT Stop: 06/12/20 23:59 Last Admin: 05/05/20 04:22 Dose: 1 lozenge Documented by: Citalopram Hydrobromide (Celexa) 10 mg PO DAILY [facility] Last Admin: 05/16/20 08:01 Dose: 10 mg Documented by: Dextrose (Glutose 15) 15 gm PO ONETIME PRN PRN Reason: Hypoglycemia Dextrose/Water (Dextrose 50% In Water) 50 ml IVPUSH ASDIRECTED PRN PRN Reason: Hypoglycemia Gabapentin (Neurontin) 100 mg PO BEDTIME [facility] Last Admin: 05/15/20 20:43 Dose: 100 mg Documented by: Glucagon (Glucagen) 1 mg IM ASDIRECTED PRN PRN Reason: Hypoglycemia Hydromorphone HCl (Dilaudid) 0.5 mg IVPUSH Q2H PRN PRN Reason: Pain Last Admin: 05/12/20 18:33 Dose: 0.5 mg Documented by: Levofloxacin/Dextrose 750 mg/ (Premix) 150 mls @ 100 mls/hr IV Q48H [facility] Last Admin: 05/15/20 16:33 Dose: 100 mls/hr Documented by: Lactobacillus Rhamnosus (Culturelle) 1 cap PO BID [facility] Last Admin: 05/16/20 08:01 Dose: 1 cap Documented by: Lidocaine HCl (Xylocaine 2% Jelly) 0 ml TOP QID PRN PRN Reason: Pain Last Admin: 05/14/20 11:09 Dose: 1 applic Documented by: Lorazepam (Ativan) 0.5 mg IVPUSH Q2H PRN PRN Reason: Anxiety Last Admin: 05/15/20 21:34 Dose: 0.5 mg Documented by: Melatonin (Melatonin) 9 mg PO BEDTIME PRN PRN Reason: Insomnia Stop: 06/12/20 23:59 Last Admin: 05/11/20 20:50 Dose: 9 mg Documented by: Ondansetron HCl (Zofran) 4 mg IV Q4H PRN PRN Reason: Nausea/Vomiting Oxycodone HCl (Oxycodone) 5 mg PO Q4H PRN PRN Reason: Pain Stop: 06/15/20 23:59 Last Admin: 05/15/20 20:43 Dose: 5 mg Documented by: Polyethylene Glycol (Miralax) 17 gm PO DAILY PRN PRN Reason: Constipation Sodium Chloride ([place] Nasal [place]) 0 ml ABRAHAN Q4H [facility] Last Admin: 05/16/20 07:50 Dose: 1 sprays Documented by: Sodium Chloride ([place] Saline Nasal Gel) 0 gm ABRAHAN QID [facility] Last Admin: 05/16/20 06:07 Dose: 1 applic Documented by: Sodium Chloride (Saline Flush) 10 ml FLUSH ASDIRECTED PRN PRN Reason: Keep Vein Open Discontinued Medications Acetaminophen (Tylenol) 650 mg PO Q4H PRN PRN Reason: Pain (Mild 1-3)/fever Last Admin: 05/11/20 19:22 Dose: 650 mg Documented by: Acetaminophen (Tylenol) 650 mg PO ONCALL ONE Stop: 04/13/20 16:31 Last Admin: 04/13/20 17:02 Dose: 650 mg Documented by: Acetaminophen (Tylenol) 650 mg PO ONCALL ONE Stop: 04/14/20 14:31 Last Admin: 04/14/20 15:56 Dose: 650 mg Documented by: Acetaminophen (Tylenol) 650 mg PO ONCALL ONE Stop: 04/15/20 10:31 Last Admin: 04/15/20 09:44 Dose: 650 mg Documented by: Acetaminophen (Tylenol) 650 mg PO ONCALL ONE Stop: 04/16/20 09:01 Last Admin: 04/16/20 09:28 Dose: 650 mg Documented by: Albuterol (Proventil Neb Soln) 2.5 mg NEB Q4H PRN PRN Reason: Shortness Of Breath/wheezing Last Admin: 04/15/20 20:23 Dose: 2.5 mg Documented by: Benzocaine/Menthol (Cepacol Sore Throat) 1 lozenge MUCMEM ASDIRECTED PRN PRN Reason: SORE THROAT Benzocaine/Menthol (Cepacol Sore Throat) Confirm Administered Dose 1 lozenge .ROUTE .STK-MED ONE Stop: 04/12/20 21:32 Last Admin: 04/12/20 22:57 Dose: Not Given Documented by: Bisacodyl (Dulcolax) 5 mg PO DAILY [facility] Last Admin: 04/21/20 11:06 Dose: 5 mg Documented by: Dexamethasone (Dexamethasone) 6 mg IVPUSH ONETIME ONE Stop: 04/11/20 17:50 Last Admin: 04/11/20 18:08 Dose: 6 mg Documented by: Dexamethasone (Dexamethasone) Confirm Administered Dose 4 mg .ROUTE .STK-MED ONE Stop: 04/11/20 18:01 Last Admin: 04/11/20 18:11 Dose: Not Given Documented by: Dexamethasone (Decadron) 6 mg IVPUSH Q24H [facility] Last Admin: 04/25/20 19:41 Dose: 6 mg Documented by: Dexamethasone (Decadron) 6 mg IVPUSH Q24H [facility] Stop: 05/10/20 11:01 Last Admin: 05/10/20 10:39 Dose: 6 mg Documented by: Dextrose (Glutose 15) 15 gm PO ONETIME PRN PRN Reason: Hypoglycemia Last Admin: 05/06/20 07:30 Dose: 15 gm Documented by: Dextrose/Water (Dextrose 50% In Water) 50 ml IV ONETIME PRN PRN Reason: Hypoglycemia Dextrose/Water (Dextrose 50% In Water) 50 ml IV ONETIME PRN PRN Reason: Hypoglycemia Diphenhydramine HCl (Benadryl) 25 mg IVPUSH ONCALL ONE Stop: 04/13/20 16:31 Last Admin: 04/13/20 17:02 Dose: 25 mg Documented by: Diphenhydramine HCl (Benadryl) 25 mg IVPUSH ONCALL ONE Stop: 04/14/20 14:31 Last Admin: 04/14/20 15:56 Dose: 25 mg Documented by: Diphenhydramine HCl (Benadryl) 25 mg PO ONCALL ONE Stop: 04/15/20 10:31 Last Admin: 04/15/20 09:46 Dose: 25 mg Documented by: Diphenhydramine HCl (Benadryl) 25 mg PO ONCALL ONE Stop: 04/16/20 09:01 Last Admin: 04/16/20 09:28 Dose: 25 mg Documented by: Enoxaparin Sodium (Lovenox) 30 mg SUBCUT DAILY [facility] Last Admin: 04/11/20 21:39 Dose: 30 mg Documented by: Enoxaparin Sodium (Lovenox) 30 mg SUBCUT BEDTIME [facility] Last Admin: 04/22/20 20:11 Dose: 30 mg Documented by: Enoxaparin Sodium (Lovenox) 70 mg SUBCUT Q24H [facility] Last Admin: 05/03/20 15:26 Dose: 70 mg Documented by: Furosemide (Lasix) 40 mg IVPUSH NOW ONE Stop: 04/16/20 12:01 Last Admin: 04/16/20 12:26 Dose: 40 mg Documented by: Furosemide (Lasix) 40 mg IV ONETIME ONE Stop: 04/22/20 12:01 Last Admin: 04/22/20 12:01 Dose: 40 mg Documented by: Furosemide (Lasix) 40 mg IVPUSH ONETIME ONE Stop: 04/22/20 21:16 Last Admin: 04/22/20 21:46 Dose: 40 mg Documented by: Furosemide (Lasix) 40 mg IVPUSH ONETIME ONE Stop: 04/24/20 18:17 Last Admin: 04/24/20 18:39 Dose: 40 mg Documented by: Furosemide (Lasix) 40 mg IVPUSH NOW ONE Stop: 04/28/20 17:16 Last Admin: 04/28/20 18:42 Dose: 40 mg Documented by: Furosemide (Lasix) 40 mg IVPUSH NOW ONE Stop: 04/29/20 08:31 Last Admin: 04/29/20 09:28 Dose: 40 mg Documented by: Furosemide (Lasix) 40 mg IVPUSH NOW ONE Stop: 05/01/20 08:41 Last Admin: 05/01/20 08:37 Dose: 40 mg Documented by: Furosemide (Lasix) 20 mg IVPUSH ONETIME ONE Stop: 05/05/20 10:31 Last Admin: 05/05/20 11:08 Dose: 20 mg Documented by: Furosemide (Lasix) 40 mg IV ONETIME ONE Stop: 05/07/20 10:31 Last Admin: 05/07/20 10:45 Dose: 40 mg Documented by: Furosemide (Lasix) 40 mg IVPUSH DAILY [facility] Stop: 05/08/20 09:01 Last Admin: 05/08/20 10:09 Dose: 40 mg Documented by: Furosemide (Lasix) 40 mg IVPUSH NOW ONE Stop: 05/11/20 10:21 Last Admin: 05/11/20 11:40 Dose: 40 mg Documented by: Furosemide (Lasix) 20 mg IVPUSH NOW ONE Stop: 05/13/20 10:01 Last Admin: 05/13/20 10:13 Dose: 20 mg Documented by: Furosemide (Lasix) 20 mg IVPUSH NOW ONE Stop: 05/14/20 13:46 Last Admin: 05/14/20 14:25 Dose: 20 mg Documented by: Gabapentin (Neurontin) 100 mg PO BEDTIME [facility] Last Admin: 05/12/20 20:53 Dose: 100 mg Documented by: Sodium Chloride (Normal Saline) 1,000 mls @ 1,000 mls/hr IV ASDIRECTED [facility] Last Admin: 04/11/20 17:14 Dose: 1,000 mls/hr Documented by: Sodium Chloride (Normal Saline) 1,000 mls @ 50 mls/hr IV ASDIRECTED [facility] Last Admin: 04/11/20 22:32 Dose: 50 mls/hr Documented by: Sodium Chloride (Normal Saline) 250 mls @ 20 mls/hr IV ASDIRECTED [facility] Last Admin: 04/13/20 17:55 Dose: 20 mls/hr Documented by: Remdesivir 200 mg/ Sodium (Chloride) 250 mls @ 250 mls/hr IV ONETIME ONE Stop: 04/22/20 14:59 Last Admin: 04/22/20 14:23 Dose: 250 mls/hr Documented by: Remdesivir 100 mg/ Sodium (Chloride) 100 mls @ 100 mls/hr IV Q24H [facility] Stop: 04/26/20 14:59 Last Admin: 04/24/20 13:38 Dose: 100 mls/hr Documented by: Levofloxacin/Dextrose 750 mg/ (Premix) 150 mls @ 100 mls/hr IV Q48H [facility] Last Admin: 04/30/20 11:40 Dose: 100 mls/hr Documented by: Vancomycin HCl 1 gm/ Sodium (Chloride) 250 mls @ 166.667 mls/hr IV Q24H [facility] Last Admin: 05/01/20 13:26 Dose: 166.667 mls/hr Documented by: Meropenem 1 gm/ Sodium (Chloride) 100 mls @ 200 mls/hr IV Q12H [facility] Last Admin: 05/01/20 04:01 Dose: 200 mls/hr Documented by: Ceftriaxone Sodium 1 gm/ (Sodium Chloride) 50 mls @ 100 mls/hr IV Q24H [facility] Last Admin: 05/04/20 14:41 Dose: 100 mls/hr Documented by: Doxycycline Hyclate 100 mg/ (Sodium Chloride) 100 mls @ 100 mls/hr IV Q12H [facility] Last Admin: 05/07/20 11:57 Dose: 100 mls/hr Documented by: Ceftazidime 1 gm/ Sodium (Chloride) 50 mls @ 100 mls/hr IV Q12H [facility] Last Admin: 05/14/20 22:16 Dose: 100 mls/hr Documented by: Vancomycin HCl 1.4 gm/ Sodium (Chloride) 250 mls @ 150 mls/hr IV ONETIME ONE Stop: 05/07/20 17:39 Last Admin: 05/07/20 15:25 Dose: 150 mls/hr Documented by: Vancomycin HCl 1 gm/ Sodium (Chloride) 250 mls @ 166.667 mls/hr IV Q24H [facility] Last Admin: 05/12/20 16:08 Dose: 166.667 mls/hr Documented by: Insulin Glargine (Lantus Solostar) 26 units SUBCUT BEDTIME [facility] Last Admin: 04/11/20 23:35 Dose: Not Given Documented by: Insulin Glargine (Lantus Solostar) 24 units SUBCUT BEDTIME [facility] Last Admin: 04/11/20 22:33 Dose: 24 units Documented by: Insulin Glargine (Lantus Solostar) 24 units SUBCUT BEDTIME [facility] Last Admin: 05/05/20 22:35 Dose: 24 units Documented by: Insulin Glargine (Lantus Solostar) 20 units SUBCUT BEDTIME [facility] Last Admin: 05/15/20 20:49 Dose: 20 unit Documented by: Insulin Human Lispro (Humalog) 0 unit SUBCUT QIDACANDBED [facility]; Protocol Last Admin: 05/02/20 17:46 Dose: 2 units Documented by: Insulin Human Lispro (Humalog) 0 unit SUBCUT QIDACANDBED [facility]; Protocol Last Admin: 05/02/20 08:24 Dose: Not Given Documented by: Insulin Human Lispro (Humalog) 0 unit SUBCUT QIDACANDBED [facility]; Protocol Last Admin: 05/16/20 08:07 Dose: 3 units Documented by: Insulin Human Lispro (Humalog) 12 unit SUBCUT ONETIME ONE Stop: 05/13/20 22:17 Last Admin: 05/14/20 00:29 Dose: Not Given Documented by: Lorazepam (Ativan) 0.5 mg IVPUSH Q2H PRN PRN Reason: Anxiety Last Admin: 04/30/20 21:00 Dose: 0.5 mg Documented by: Magnesium Hydroxide (Milk Of Magnesia) 30 ml PO DAILY [facility] Last Admin: 04/21/20 11:06 Dose: 30 ml Documented by: Ondansetron HCl (Zofran) 4 mg IV Q4H PRN PRN Reason: Nausea/Vomiting Polyethylene Glycol (Miralax) 17 gm PO DAILY PRN PRN Reason: Constipation Last Admin: 04/21/20 08:06 Dose: 17 gm Documented by: Senna/Docusate Sodium (Senna Plus) 1 tab PO BID [facility] Last Admin: 04/21/20 11:06 Dose: 1 tab Documented by: Sodium Chloride (Saline Flush) 10 ml FLUSH ASDIRECTED PRN PRN Reason: Keep Vein Open Last Admin: 04/15/20 09:45 Dose: 10 ml Documented by: Sodium Polystyrene Sulfonate (Kayexalate) 15 gm PO ONETIME ONE Stop: 04/22/20 10:01 Last Admin: 04/22/20 11:34 Dose: 15 gm Documented by: Tamoxifen Citrate (Nolvadex) 20 mg PO DAILY [facility] Last Admin: 05/05/20 11:09 Dose: Not Given Documented by: Vancomycin HCl (Vancomycin) 1 gm IV .PHARMACY TO DOSE [facility] Stop: 04/30/20 12:30 - Exam Quality Assessment: Supplemental Oxygen General: Alert, Cooperative, No Acute Distress, Lethargic Lungs: Normal Respiratory Effort, Crackles (mild diffuse) Cardiovascular: Regular Rate, Regular Rhythm GI/Abdominal Exam: Normal Bowel Sounds, Soft, No Distention Extremities: No Pedal Edema. No: Increased Warmth Skin: Warm, Dry Psy/Mental Status: Alert. No: Agitated Sepsis Event Note - Evaluation Sepsis Screening Result: No Definite Risk - Focused Exam Vital Signs: Vital Signs Temp Resp BP Pulse Ox 05/16/20 07:56 36.1 C 15 122/41 L 89 L 05/16/20 06:00 16 113/44 L 90 L 05/16/20 04:00 36.1 C 17 114/32 L 90 L 05/16/20 02:00 18 104/35 L 92 L 05/16/20 00:00 36.7 C 16 117/44 L 93 L 05/15/20 22:00 17 115/44 L 92 L - Problem List Review Problem List Initiated/Reviewed/Updated: Yes - My Orders Last 24 Hours: My Active Orders 05/16/20 09:30 Communication Order [RC] PRN Communication Order [RC] PRN 05/16/20 09:31 PT Evaluation and Treatment [CONS] Routine 05/16/20 09:32 Transfer Patient (Change bed) [ADT] Routine 05/16/20 09:33 Overnight Pulse Oximetry [RC] Click to Edit Pulse Oximetry Continuous Monitoring [OM.PC] Routine 05/16/20 11:00 Insulin Lispro [HumaLOG] See Protocol SUBCUT QIDACANDBED 05/16/20 11:30 GLUCOSE POC LAB TO COLLECT JPM [POC] QIDACANDBED 05/16/20 16:30 GLUCOSE POC LAB TO COLLECT JPM [POC] QIDACANDBED 05/16/20 21:00 GLUCOSE POC LAB TO COLLECT JPM [POC] QIDACANDBED Insulin Glarg,Human.Rec.Analog [LantUS Solostar] 30 units SUBCUT BEDTIME 05/17/20 07:30 GLUCOSE POC LAB TO COLLECT JPM [POC] QIDACANDBED 05/17/20 11:30 GLUCOSE POC LAB TO COLLECT JPM [POC] QIDACANDBED 05/17/20 16:30 GLUCOSE POC LAB TO COLLECT JPM [POC] QIDACANDBED 05/17/20 21:00 GLUCOSE POC LAB TO COLLECT JPM [POC] QIDACANDBED 05/18/20 07:30 GLUCOSE POC LAB TO COLLECT JPM [POC] QIDACANDBED 05/18/20 11:30 GLUCOSE POC LAB TO COLLECT JPM [POC] QIDACANDBED 05/18/20 16:30 GLUCOSE POC LAB TO COLLECT JPM [POC] QIDACANDBED 05/18/20 21:00 GLUCOSE POC LAB TO COLLECT JPM [POC] QIDACANDBED 05/19/20 07:30 GLUCOSE POC LAB TO COLLECT JPM [POC] QIDACANDBED 05/19/20 11:30 GLUCOSE POC LAB TO COLLECT JPM [POC] QIDACANDBED 05/19/20 16:30 GLUCOSE POC LAB TO COLLECT JPM [POC] QIDACANDBED 05/19/20 21:00 GLUCOSE POC LAB TO COLLECT JPM [POC] QIDACANDBED 05/20/20 07:30 GLUCOSE POC LAB TO COLLECT JPM [POC] QIDACANDBED 05/20/20 11:30 GLUCOSE POC LAB TO COLLECT JPM [POC] QIDACANDBED 05/20/20 16:30 GLUCOSE POC LAB TO COLLECT JPM [POC] QIDACANDBED 05/20/20 21:00 GLUCOSE POC LAB TO COLLECT JPM [POC] QIDACANDBED 05/21/20 07:30 GLUCOSE POC LAB TO COLLECT JPM [POC] QIDACANDBED 05/21/20 11:30 GLUCOSE POC LAB TO COLLECT JPM [POC] QIDACANDBED 05/21/20 16:30 GLUCOSE POC LAB TO COLLECT JPM [POC] QIDACANDBED 05/21/20 21:00 GLUCOSE POC LAB TO COLLECT JPM [POC] QIDACANDBED 05/22/20 07:30 GLUCOSE POC LAB TO COLLECT JPM [POC] QIDACANDBED 05/22/20 11:30 GLUCOSE POC LAB TO COLLECT JPM [POC] QIDACANDBED 05/22/20 16:30 GLUCOSE POC LAB TO COLLECT JPM [POC] QIDACANDBED 05/22/20 21:00 GLUCOSE POC LAB TO COLLECT JPM [POC] QIDACANDBED 05/23/20 07:30 GLUCOSE POC LAB TO COLLECT JPM [POC] QIDACANDBED 05/23/20 11:30 GLUCOSE POC LAB TO COLLECT JPM [POC] QIDACANDBED 05/23/20 16:30 GLUCOSE POC LAB TO COLLECT JPM [POC] QIDACANDBED 05/23/20 21:00 GLUCOSE POC LAB TO COLLECT JPM [POC] QIDACANDBED 05/24/20 07:30 GLUCOSE POC LAB TO COLLECT JPM [POC] QIDACANDBED 05/24/20 11:30 GLUCOSE POC LAB TO COLLECT JPM [POC] QIDACANDBED 05/24/20 16:30 GLUCOSE POC LAB TO COLLECT JPM [POC] QIDACANDBED 05/24/20 21:00 GLUCOSE POC LAB TO COLLECT JPM [POC] QIDACANDBED 05/25/20 07:30 GLUCOSE POC LAB TO COLLECT JPM [POC] QIDACANDBED 05/25/20 11:30 GLUCOSE POC LAB TO COLLECT JPM [POC] QIDACANDBED 05/25/20 16:30 GLUCOSE POC LAB TO COLLECT JPM [POC] QIDACANDBED 05/25/20 21:00 GLUCOSE POC LAB TO COLLECT JPM [POC] QIDACANDBED 05/26/20 07:30 GLUCOSE POC LAB TO COLLECT JPM [POC] QIDACANDBED 05/26/20 11:30 GLUCOSE POC LAB TO COLLECT JPM [POC] QIDACANDBED 05/26/20 16:30 GLUCOSE POC LAB TO COLLECT JPM [POC] QIDACANDBED 05/26/20 21:00 GLUCOSE POC LAB TO COLLECT JPM [POC] QIDACANDBED 05/27/20 07:30 GLUCOSE POC LAB TO COLLECT JPM [POC] QIDACANDBED - Plan Plan:: ASSESSMENT AND PLAN BILATERAL PNEUMONIA SECONDARY TO [id number] to may be slowly improving but still quite compromised and debilitated. Oxygenation remains quite compromised and she has been on 9 to 10 L/min. Very weak and fatigues very quickly. -Assess volume status daily -Supplemental oxygen as needed, wean as able -Increase activity as tolerated with physical therapy -Inhalers as needed -Transition to comfort cares if she worsens POSSIBLE BACTERIAL PNEUMONIA-antibiotics have been deescalated over the past several days. She has remained clinically stable. -Antibiotic coverage with levofloxacin -Scheduled nebulizers -Follow-up cultures DECUBITUS ULCER stage I -Frequent turning and repositioning -Continue current management per Dr. Freedman -Surgical follow-up with Dr. Freedman for wound management ACUTE DVT, left popliteal vein-noted with lower extremity ultrasound. -Continue apixaban -Treat for 3 months (end mid July) CHRONIC KIDNEY DISEASE STAGE III-creatinine stable. -Hold on diuretic therapy today -Closely monitor urine output and renal function TYPE 2 DIABETES MELLITUS-blood sugar levels have been moderately elevated. -Increased dose of long-acting insulin -High-dose sliding scale insulin today -4 times daily glucometers MAINTENANCE ISSUES -DVT prophylaxis; apixaban -GI prophylaxis; not indicated -Nutrition; consistent carbohydrate diet DISPOSITION-anticipate discharge to home with home care versus long-term after the hospital stay if she survives the hospital stay. Reggie Altamirano MD
[2020-05-16] MEDS: oxyCODONE 5 MG Tab PO PRN (18:12)
[2020-05-16] MEDS: LORazepam 2 MG/ML SDV IVPUSH PRN (19:50)
[2020-05-16] MEDS: Gabapentin 100 MG Cap PO SCH (20:55)
[2020-05-16] MEDS ORDERED: Insulin Glargine,Human Rec. Analog 100 Units/ML 3 ML Pen SUBCUT SCH (21:00)
[2020-05-17] MEDS: HYDROmorphone 0.5 MG/0.5 ML Syringe IVPUSH PRN (03:21)
[2020-05-17] MEDS: Sodium Chloride 0.65% Nasal Spray 45 ML Bottle NAS SCH ×6 (05:07→22:49)
[2020-05-17] MEDS: Aloe Vera/Sodium Chloride Gel 14.1 GM Tube NAS SCH ×4 (05:31→22:49)
[2020-05-17] MEDS: Albuterol 0.083% 2.5 MG/3 ML Neb Soln NEB SCH ×4 (07:00→22:49)
[2020-05-17] MEDS: Insulin Lispro 100 Unit/ML 3 ML KwikPen SUBCUT SCH ×4 (07:40→20:37)
[2020-05-17] MEDS: LORazepam 2 MG/ML SDV IVPUSH PRN ×3 (08:08→23:14)
[2020-05-17] MEDS ORDERED: Morphine 15 MG Tab PO PRN (09:21)
--- NOTE | 2020-05-17 09:24 | PCM.PN ---
- General Info Date of Service: 05/17/20 Subjective Update: There were no acute events overnight. Patient remains on about 10 L of supplemental oxygen. She is lethargic today and does not participate in the conversation. Her son reports that she had an episode yesterday afternoon about 1 hour after receiving a dose of pain medication. She was singing very loudly and this is quite unusual for her. She was somewhat restless overnight and did receive a dose of lorazepam this morning. She has not had much to eat or drink in the past 2 days. Blood pressure and heart rate are stable. Functional Status: Reports: Pain Controlled - Review of Systems General: Denies: Fever - Patient Data Vitals - Most Recent: Last Vital Signs Temp 36.0 C L 05/17/20 08:00 Pulse 95 05/17/20 08:00 Resp 16 05/17/20 08:00 BP 115/42 L 05/17/20 08:00 Pulse Ox 95 05/17/20 08:00 Weight - Most Recent: 72.121 kg Lab Results Last 24 Hours: Laboratory Results - last 24 hr 05/16/20 Range/Units 17:01 POC Glucose 193 H (74-106) MG/DL Med Orders - Current: Current Medications Acetaminophen (Tylenol) 650 mg PO Q4H PRN PRN Reason: Pain (Mild 1-3)/fever Albuterol (Ventolin Hfa) 2 gm INH Q4H PRN PRN Reason: Shortness of Breath Last Admin: 04/21/20 19:08 Dose: 2 puff Documented by: Albuterol (Proventil Neb Soln) 2.5 mg NEB QIDRT [facility] Last Admin: 05/17/20 07:00 Dose: 2.5 mg Documented by: Allopurinol (Zyloprim) 200 mg PO DAILY [facility] Last Admin: 05/16/20 08:01 Dose: 200 mg Documented by: Apixaban (Eliquis) 5 mg PO BID [facility] Last Admin: 05/16/20 20:55 Dose: 5 mg Documented by: Aspirin (Aspirin) 81 mg PO DAILY [facility] Last Admin: 05/16/20 08:00 Dose: 81 mg Documented by: Benzocaine/Menthol (Cepacol Sore Throat) 1 lozenge MUCMEM ASDIRECTED PRN PRN Reason: SORE THROAT Stop: 12/27/20 23:59 Last Admin: 05/05/20 04:22 Dose: 1 lozenge Documented by: Citalopram Hydrobromide (Celexa) 10 mg PO DAILY [facility] Last Admin: 05/16/20 08:01 Dose: 10 mg Documented by: Dextrose (Glutose 15) 15 gm PO ONETIME PRN PRN Reason: Hypoglycemia Dextrose/Water (Dextrose 50% In Water) 50 ml IVPUSH ASDIRECTED PRN PRN Reason: Hypoglycemia Furosemide (Lasix) 40 mg IVPUSH ONETIME ONE Stop: 05/17/20 09:21 Gabapentin (Neurontin) 100 mg PO BEDTIME [facility] Last Admin: 05/16/20 20:55 Dose: 100 mg Documented by: Glucagon (Glucagen) 1 mg IM ASDIRECTED PRN PRN Reason: Hypoglycemia Levofloxacin/Dextrose 750 mg/ (Premix) 150 mls @ 100 mls/hr IV Q48H [facility] Last Admin: 05/15/20 16:33 Dose: 100 mls/hr Documented by: Insulin Glargine (Lantus Solostar) 30 units SUBCUT BEDTIME [facility] Last Admin: 05/16/20 20:50 Dose: 30 units Documented by: Insulin Human Lispro (Humalog) 0 unit SUBCUT QIDACANDBED [facility]; Protocol Last Admin: 05/17/20 07:40 Dose: Not Given Documented by: Lactobacillus Rhamnosus (Culturelle) 1 cap PO BID [facility] Last Admin: 05/16/20 20:55 Dose: 1 cap Documented by: Lidocaine HCl (Xylocaine 2% Jelly) 0 ml TOP QID PRN PRN Reason: Pain Last Admin: 05/14/20 11:09 Dose: 1 applic Documented by: Lorazepam (Ativan) 0.5 mg IVPUSH Q2H PRN PRN Reason: Anxiety Last Admin: 05/17/20 08:08 Dose: 0.5 mg Documented by: Melatonin (Melatonin) 9 mg PO BEDTIME PRN PRN Reason: Insomnia Stop: 06/12/20 23:59 Last Admin: 05/11/20 20:50 Dose: 9 mg Documented by: Ondansetron HCl (Zofran) 4 mg IV Q4H PRN PRN Reason: Nausea/Vomiting Polyethylene Glycol (Miralax) 17 gm PO DAILY PRN PRN Reason: Constipation Sodium Chloride ([place] Nasal [place]) 0 ml ABRAHAN Q4H [facility] Last Admin: 05/17/20 08:13 Dose: 2 sprays Documented by: Sodium Chloride ([place] Saline Nasal Gel) 0 gm ABRAHAN QID [facility] Last Admin: 05/17/20 09:20 Dose: 1 applic Documented by: Sodium Chloride (Saline Flush) 10 ml FLUSH ASDIRECTED PRN PRN Reason: Keep Vein Open Discontinued Medications Acetaminophen (Tylenol) 650 mg PO Q4H PRN PRN Reason: Pain (Mild 1-3)/fever Last Admin: 05/11/20 19:22 Dose: 650 mg Documented by: Acetaminophen (Tylenol) 650 mg PO ONCALL ONE Stop: 04/13/20 16:31 Last Admin: 04/13/20 17:02 Dose: 650 mg Documented by: Acetaminophen (Tylenol) 650 mg PO ONCALL ONE Stop: 04/14/20 14:31 Last Admin: 04/14/20 15:56 Dose: 650 mg Documented by: Acetaminophen (Tylenol) 650 mg PO ONCALL ONE Stop: 04/15/20 10:31 Last Admin: 04/15/20 09:44 Dose: 650 mg Documented by: Acetaminophen (Tylenol) 650 mg PO ONCALL ONE Stop: 04/16/20 09:01 Last Admin: 04/16/20 09:28 Dose: 650 mg Documented by: Albuterol (Proventil Neb Soln) 2.5 mg NEB Q4H PRN PRN Reason: Shortness Of Breath/wheezing Last Admin: 04/15/20 20:23 Dose: 2.5 mg Documented by: Benzocaine/Menthol (Cepacol Sore Throat) 1 lozenge MUCMEM ASDIRECTED PRN PRN Reason: SORE THROAT Benzocaine/Menthol (Cepacol Sore Throat) Confirm Administered Dose 1 lozenge .ROUTE .STK-MED ONE Stop: 04/12/20 21:32 Last Admin: 04/12/20 22:57 Dose: Not Given Documented by: Bisacodyl (Dulcolax) 5 mg PO DAILY [facility] Last Admin: 04/21/20 11:06 Dose: 5 mg Documented by: Dexamethasone (Dexamethasone) 6 mg IVPUSH ONETIME ONE Stop: 04/11/20 17:50 Last Admin: 04/11/20 18:08 Dose: 6 mg Documented by: Dexamethasone (Dexamethasone) Confirm Administered Dose 4 mg .ROUTE .STK-MED ONE Stop: 04/11/20 18:01 Last Admin: 04/11/20 18:11 Dose: Not Given Documented by: Dexamethasone (Decadron) 6 mg IVPUSH Q24H [facility] Last Admin: 04/25/20 19:41 Dose: 6 mg Documented by: Dexamethasone (Decadron) 6 mg IVPUSH Q24H [facility] Stop: 05/10/20 11:01 Last Admin: 05/10/20 10:39 Dose: 6 mg Documented by: Dextrose (Glutose 15) 15 gm PO ONETIME PRN PRN Reason: Hypoglycemia Last Admin: 05/06/20 07:30 Dose: 15 gm Documented by: Dextrose/Water (Dextrose 50% In Water) 50 ml IV ONETIME PRN PRN Reason: Hypoglycemia Dextrose/Water (Dextrose 50% In Water) 50 ml IV ONETIME PRN PRN Reason: Hypoglycemia Diphenhydramine HCl (Benadryl) 25 mg IVPUSH ONCALL ONE Stop: 04/13/20 16:31 Last Admin: 04/13/20 17:02 Dose: 25 mg Documented by: Diphenhydramine HCl (Benadryl) 25 mg IVPUSH ONCALL ONE Stop: 04/14/20 14:31 Last Admin: 04/14/20 15:56 Dose: 25 mg Documented by: Diphenhydramine HCl (Benadryl) 25 mg PO ONCALL ONE Stop: 04/15/20 10:31 Last Admin: 04/15/20 09:46 Dose: 25 mg Documented by: Diphenhydramine HCl (Benadryl) 25 mg PO ONCALL ONE Stop: 04/16/20 09:01 Last Admin: 04/16/20 09:28 Dose: 25 mg Documented by: Enoxaparin Sodium (Lovenox) 30 mg SUBCUT DAILY [facility] Last Admin: 04/11/20 21:39 Dose: 30 mg Documented by: Enoxaparin Sodium (Lovenox) 30 mg SUBCUT BEDTIME [facility] Last Admin: 04/22/20 20:11 Dose: 30 mg Documented by: Enoxaparin Sodium (Lovenox) 70 mg SUBCUT Q24H [facility] Last Admin: 05/03/20 15:26 Dose: 70 mg Documented by: Furosemide (Lasix) 40 mg IVPUSH NOW ONE Stop: 04/16/20 12:01 Last Admin: 04/16/20 12:26 Dose: 40 mg Documented by: Furosemide (Lasix) 40 mg IV ONETIME ONE Stop: 04/22/20 12:01 Last Admin: 04/22/20 12:01 Dose: 40 mg Documented by: Furosemide (Lasix) 40 mg IVPUSH ONETIME ONE Stop: 04/22/20 21:16 Last Admin: 04/22/20 21:46 Dose: 40 mg Documented by: Furosemide (Lasix) 40 mg IVPUSH ONETIME ONE Stop: 04/24/20 18:17 Last Admin: 04/24/20 18:39 Dose: 40 mg Documented by: Furosemide (Lasix) 40 mg IVPUSH NOW ONE Stop: 04/28/20 17:16 Last Admin: 04/28/20 18:42 Dose: 40 mg Documented by: Furosemide (Lasix) 40 mg IVPUSH NOW ONE Stop: 04/29/20 08:31 Last Admin: 04/29/20 09:28 Dose: 40 mg Documented by: Furosemide (Lasix) 40 mg IVPUSH NOW ONE Stop: 05/01/20 08:41 Last Admin: 05/01/20 08:37 Dose: 40 mg Documented by: Furosemide (Lasix) 20 mg IVPUSH ONETIME ONE Stop: 05/05/20 10:31 Last Admin: 05/05/20 11:08 Dose: 20 mg Documented by: Furosemide (Lasix) 40 mg IV ONETIME ONE Stop: 05/07/20 10:31 Last Admin: 05/07/20 10:45 Dose: 40 mg Documented by: Furosemide (Lasix) 40 mg IVPUSH DAILY [facility] Stop: 05/08/20 09:01 Last Admin: 05/08/20 10:09 Dose: 40 mg Documented by: Furosemide (Lasix) 40 mg IVPUSH NOW ONE Stop: 05/11/20 10:21 Last Admin: 05/11/20 11:40 Dose: 40 mg Documented by: Furosemide (Lasix) 20 mg IVPUSH NOW ONE Stop: 05/13/20 10:01 Last Admin: 05/13/20 10:13 Dose: 20 mg Documented by: Furosemide (Lasix) 20 mg IVPUSH NOW ONE Stop: 05/14/20 13:46 Last Admin: 05/14/20 14:25 Dose: 20 mg Documented by: Gabapentin (Neurontin) 100 mg PO BEDTIME [facility] Last Admin: 05/12/20 20:53 Dose: 100 mg Documented by: Hydromorphone HCl (Dilaudid) 0.5 mg IVPUSH Q2H PRN PRN Reason: Pain Last Admin: 05/17/20 03:21 Dose: 0.5 mg Documented by: Sodium Chloride (Normal Saline) 1,000 mls @ 1,000 mls/hr IV ASDIRECTED [facility] Last Admin: 04/11/20 17:14 Dose: 1,000 mls/hr Documented by: Sodium Chloride (Normal Saline) 1,000 mls @ 50 mls/hr IV ASDIRECTED [facility] Last Admin: 04/11/20 22:32 Dose: 50 mls/hr Documented by: Sodium Chloride (Normal Saline) 250 mls @ 20 mls/hr IV ASDIRECTED [facility] Last Admin: 04/13/20 17:55 Dose: 20 mls/hr Documented by: Remdesivir 200 mg/ Sodium (Chloride) 250 mls @ 250 mls/hr IV ONETIME ONE Stop: 04/22/20 14:59 Last Admin: 04/22/20 14:23 Dose: 250 mls/hr Documented by: Remdesivir 100 mg/ Sodium (Chloride) 100 mls @ 100 mls/hr IV Q24H [facility] Stop: 04/26/20 14:59 Last Admin: 04/24/20 13:38 Dose: 100 mls/hr Documented by: Levofloxacin/Dextrose 750 mg/ (Premix) 150 mls @ 100 mls/hr IV Q48H [facility] Last Admin: 04/30/20 11:40 Dose: 100 mls/hr Documented by: Vancomycin HCl 1 gm/ Sodium (Chloride) 250 mls @ 166.667 mls/hr IV Q24H [facility] Last Admin: 05/01/20 13:26 Dose: 166.667 mls/hr Documented by: Meropenem 1 gm/ Sodium (Chloride) 100 mls @ 200 mls/hr IV Q12H [facility] Last Admin: 05/01/20 04:01 Dose: 200 mls/hr Documented by: Ceftriaxone Sodium 1 gm/ (Sodium Chloride) 50 mls @ 100 mls/hr IV Q24H [facility] Last Admin: 05/04/20 14:41 Dose: 100 mls/hr Documented by: Doxycycline Hyclate 100 mg/ (Sodium Chloride) 100 mls @ 100 mls/hr IV Q12H [facility] Last Admin: 05/07/20 11:57 Dose: 100 mls/hr Documented by: Ceftazidime 1 gm/ Sodium (Chloride) 50 mls @ 100 mls/hr IV Q12H [facility] Last Admin: 05/14/20 22:16 Dose: 100 mls/hr Documented by: Vancomycin HCl 1.4 gm/ Sodium (Chloride) 250 mls @ 150 mls/hr IV ONETIME ONE Stop: 05/07/20 17:39 Last Admin: 05/07/20 15:25 Dose: 150 mls/hr Documented by: Vancomycin HCl 1 gm/ Sodium (Chloride) 250 mls @ 166.667 mls/hr IV Q24H [facility] Last Admin: 05/12/20 16:08 Dose: 166.667 mls/hr Documented by: Insulin Glargine (Lantus Solostar) 26 units SUBCUT BEDTIME [facility] Last Admin: 04/11/20 23:35 Dose: Not Given Documented by: Insulin Glargine (Lantus Solostar) 24 units SUBCUT BEDTIME [facility] Last Admin: 04/11/20 22:33 Dose: 24 units Documented by: Insulin Glargine (Lantus Solostar) 24 units SUBCUT BEDTIME [facility] Last Admin: 05/05/20 22:35 Dose: 24 units Documented by: Insulin Glargine (Lantus Solostar) 20 units SUBCUT BEDTIME [facility] Last Admin: 05/15/20 20:49 Dose: 20 unit Documented by: Insulin Human Lispro (Humalog) 0 unit SUBCUT QIDACANDBED [facility]; Protocol Last Admin: 05/02/20 17:46 Dose: 2 units Documented by: Insulin Human Lispro (Humalog) 0 unit SUBCUT QIDACANDBED [facility]; Protocol Last Admin: 05/02/20 08:24 Dose: Not Given Documented by: Insulin Human Lispro (Humalog) 0 unit SUBCUT QIDACANDBED [facility]; Protocol Last Admin: 05/16/20 08:07 Dose: 3 units Documented by: Insulin Human Lispro (Humalog) 12 unit SUBCUT ONETIME ONE Stop: 05/13/20 22:17 Last Admin: 05/14/20 00:29 Dose: Not Given Documented by: Lorazepam (Ativan) 0.5 mg IVPUSH Q2H PRN PRN Reason: Anxiety Last Admin: 04/30/20 21:00 Dose: 0.5 mg Documented by: Magnesium Hydroxide (Milk Of Magnesia) 30 ml PO DAILY [facility] Last Admin: 04/21/20 11:06 Dose: 30 ml Documented by: Ondansetron HCl (Zofran) 4 mg IV Q4H PRN PRN Reason: Nausea/Vomiting Oxycodone HCl (Oxycodone) 5 mg PO Q4H PRN PRN Reason: Pain Stop: 06/15/20 23:59 Last Admin: 05/16/20 18:12 Dose: 5 mg Documented by: Polyethylene Glycol (Miralax) 17 gm PO DAILY PRN PRN Reason: Constipation Last Admin: 04/21/20 08:06 Dose: 17 gm Documented by: Senna/Docusate Sodium (Senna Plus) 1 tab PO BID [facility] Last Admin: 04/21/20 11:06 Dose: 1 tab Documented by: Sodium Chloride (Saline Flush) 10 ml FLUSH ASDIRECTED PRN PRN Reason: Keep Vein Open Last Admin: 04/15/20 09:45 Dose: 10 ml Documented by: Sodium Polystyrene Sulfonate (Kayexalate) 15 gm PO ONETIME ONE Stop: 04/22/20 10:01 Last Admin: 04/22/20 11:34 Dose: 15 gm Documented by: Tamoxifen Citrate (Nolvadex) 20 mg PO DAILY [facility] Last Admin: 05/05/20 11:09 Dose: Not Given Documented by: Vancomycin HCl (Vancomycin) 1 gm IV .PHARMACY TO DOSE [facility] Stop: 04/30/20 12:30 - Exam Quality Assessment: Supplemental Oxygen General: No Acute Distress, Lethargic. No: Alert Lungs: Normal Respiratory Effort, Crackles (moderate diffuse ) Cardiovascular: Regular Rate, Regular Rhythm GI/Abdominal Exam: Soft, No Distention Extremities: No Pedal Edema. No: Increased Warmth Skin: Warm, Dry Psy/Mental Status: No: Alert, Agitated Sepsis Event Note - Evaluation Sepsis Screening Result: No Definite Risk - Focused Exam Vital Signs: Vital Signs Temp Pulse Resp BP Pulse Ox 05/17/20 08:00 36.0 C L 95 16 115/42 L 95 05/17/20 07:01 95 05/17/20 06:00 17 122/52 L 92 L 05/17/20 04:00 36.2 C 19 99/40 L 92 L 05/17/20 02:00 16 101/37 L 92 L 05/17/20 00:00 37 C 16 106/36 L 93 L 05/16/20 22:00 16 123/44 L 93 L - Problem List Review Problem List Initiated/Reviewed/Updated: Yes - My Orders Last 24 Hours: My Active Orders 05/16/20 09:30 Communication Order [RC] PRN Communication Order [RC] PRN 05/16/20 09:31 PT Evaluation and Treatment [CONS] Routine 05/16/20 09:32 Transfer Patient (Change bed) [ADT] Routine 05/16/20 09:33 Overnight Pulse Oximetry [RC] Click to Edit Pulse Oximetry Continuous Monitoring [OM.PC] Routine 05/16/20 11:00 Insulin Lispro [HumaLOG] See Protocol SUBCUT QIDACANDBED 05/16/20 21:00 Insulin Glarg,Human.Rec.Analog [LantUS Solostar] 30 units SUBCUT BEDTIME 05/17/20 09:20 Furosemide [Lasix] 40 mg IVPUSH ONETIME ONE 05/17/20 09:21 Morphine 15 mg PO Q4H PRN Morphine 2 mg IVPUSH Q2H PRN 05/17/20 09:22 Vital Signs [RC] Q4H 05/18/20 05:00 BASIC METABOLIC PANEL,BMP [CHEM] Timed CBC W/O DIFF,HEMOGRAM [HEME] Timed (1) 05/18/20 07:30 GLUCOSE POC LAB TO COLLECT JPM [POC] QIDACANDBED 05/18/20 11:30 GLUCOSE POC LAB TO COLLECT JPM [POC] QIDACANDBED 05/18/20 16:30 GLUCOSE POC LAB TO COLLECT JPM [POC] QIDACANDBED 05/18/20 21:00 GLUCOSE POC LAB TO COLLECT JPM [POC] QIDACANDBED 05/19/20 07:30 GLUCOSE POC LAB TO COLLECT JPM [POC] QIDACANDBED 05/19/20 11:30 GLUCOSE POC LAB TO COLLECT JPM [POC] QIDACANDBED 12/03/20 16:30 GLUCOSE POC LAB TO COLLECT JPM [POC] QIDACANDBED 05/19/20 21:00 GLUCOSE POC LAB TO COLLECT JPM [POC] QIDACANDBED 05/20/20 07:30 GLUCOSE POC LAB TO COLLECT JPM [POC] QIDACANDBED 05/20/20 11:30 GLUCOSE POC LAB TO COLLECT JPM [POC] QIDACANDBED 05/20/20 16:30 GLUCOSE POC LAB TO COLLECT JPM [POC] QIDACANDBED 05/20/20 21:00 GLUCOSE POC LAB TO COLLECT JPM [POC] QIDACANDBED 05/21/20 07:30 GLUCOSE POC LAB TO COLLECT JPM [POC] QIDACANDBED 05/21/20 11:30 GLUCOSE POC LAB TO COLLECT JPM [POC] QIDACANDBED 05/21/20 16:30 GLUCOSE POC LAB TO COLLECT JPM [POC] QIDACANDBED 05/21/20 21:00 GLUCOSE POC LAB TO COLLECT JPM [POC] QIDACANDBED 05/22/20 07:30 GLUCOSE POC LAB TO COLLECT JPM [POC] QIDACANDBED 05/22/20 11:30 GLUCOSE POC LAB TO COLLECT JPM [POC] QIDACANDBED 05/22/20 16:30 GLUCOSE POC LAB TO COLLECT JPM [POC] QIDACANDBED 05/22/20 21:00 GLUCOSE POC LAB TO COLLECT JPM [POC] QIDACANDBED 05/23/20 07:30 GLUCOSE POC LAB TO COLLECT JPM [POC] QIDACANDBED 05/23/20 11:30 GLUCOSE POC LAB TO COLLECT JPM [POC] QIDACANDBED 05/23/20 16:30 GLUCOSE POC LAB TO COLLECT JPM [POC] QIDACANDBED 05/23/20 21:00 GLUCOSE POC LAB TO COLLECT JPM [POC] QIDACANDBED 05/24/20 07:30 GLUCOSE POC LAB TO COLLECT JPM [POC] QIDACANDBED 05/24/20 11:30 GLUCOSE POC LAB TO COLLECT JPM [POC] QIDACANDBED 05/24/20 16:30 GLUCOSE POC LAB TO COLLECT JPM [POC] QIDACANDBED 05/24/20 21:00 GLUCOSE POC LAB TO COLLECT JPM [POC] QIDACANDBED 05/25/20 07:30 GLUCOSE POC LAB TO COLLECT JPM [POC] QIDACANDBED 05/25/20 11:30 GLUCOSE POC LAB TO COLLECT JPM [POC] QIDACANDBED 05/25/20 16:30 GLUCOSE POC LAB TO COLLECT JPM [POC] QIDACANDBED 05/25/20 21:00 GLUCOSE POC LAB TO COLLECT JPM [POC] QIDACANDBED 05/26/20 07:30 GLUCOSE POC LAB TO COLLECT JPM [POC] QIDACANDBED 05/26/20 11:30 GLUCOSE POC LAB TO COLLECT JPM [POC] QIDACANDBED 05/26/20 16:30 GLUCOSE POC LAB TO COLLECT JPM [POC] QIDACANDBED 05/26/20 21:00 GLUCOSE POC LAB TO COLLECT JPM [POC] QIDACANDBED 05/27/20 07:30 GLUCOSE POC LAB TO COLLECT JPM [POC] QIDACANDBED - Plan Plan:: ASSESSMENT AND PLAN BILATERAL PNEUMONIA SECONDARY TO [id number] but still quite compromised and debilitated. Oxygenation remains quite compromised and she has been on 9 to 10 L/min. I believe she is turning the corner towards decompensation. Family wishes to continue the current level of cares at this time. -Assess volume status daily (giving dose of furosemide today) -Supplemental oxygen as needed, wean as able -Increase activity as tolerated with physical therapy -Inhalers as needed -Transition to comfort cares if she worsens POSSIBLE BACTERIAL PNEUMONIA-antibiotics have been deescalated over the past several days. She has remained clinically stable but has not made much in the way of improvement. -Antibiotic coverage with levofloxacin -Scheduled nebulizers -Follow-up cultures DECUBITUS ULCER stage I -Frequent turning and repositioning -Continue current management per Dr. Freedman -Surgical follow-up with Dr. Freedman for wound management ACUTE DVT, left popliteal vein-noted with lower extremity ultrasound. -Continue apixaban -Treat for 3 months (end mid July) CHRONIC KIDNEY DISEASE STAGE III-creatinine stable. -Closely monitor urine output and renal function TYPE 2 DIABETES MELLITUS-blood sugar levels have been declining with poor intake. -Hold on long-acting insulin -Medium-dose sliding scale insulin today -4 times daily glucometers MAINTENANCE ISSUES -DVT prophylaxis; apixaban -GI prophylaxis; not indicated -Nutrition; consistent carbohydrate diet DISPOSITION-anticipate discharge to home with home care versus retirement after the hospital stay if she survives the hospital stay. Reggie Altamirano MD
[2020-05-17] MEDS ORDERED: Furosemide 40 MG/4 ML VIAL IVPUSH ONE (09:30)
[2020-05-17] MEDS: Morphine 2 MG/ML SYRINGE IVPUSH PRN ×3 (11:42→23:33)
[2020-05-17] MEDS: Apixaban 5 MG Tab PO SCH ×2 (11:49→20:36)
[2020-05-17] MEDS: Lactobacillus Rhamnosus GG (Probiotic) Cap PO SCH ×2 (11:49→20:36)
[2020-05-17] MEDS: Allopurinol 100 MG Tab PO SCH (11:49)
[2020-05-17] MEDS: Citalopram 10 MG Tab PO SCH (11:49)
[2020-05-17] MEDS: Aspirin 81 MG Tab.Chew PO SCH (11:49)
[2020-05-17] MEDS: D5 1/2 NS w/ 20 mEq/L KCl 1,000 ML IV SCH (13:49)
[2020-05-17] MEDS: Levofloxacin/Dextrose 5%-Water 750 MG in Premix Bag 1 BAG IV SCH (17:08)
[2020-05-17] MEDS: Gabapentin 100 MG Cap PO SCH (20:36)
[2020-05-18] MEDS: Sodium Chloride 0.65% Nasal Spray 45 ML Bottle NAS SCH ×2 (04:22→08:21)
[2020-05-18] MEDS: Morphine 2 MG/ML SYRINGE IVPUSH PRN (04:36)
[2020-05-18] MEDS: LORazepam 2 MG/ML SDV IVPUSH PRN (05:07)
[2020-05-18] MEDS: Aloe Vera/Sodium Chloride Gel 14.1 GM Tube NAS SCH ×4 (05:36→22:55)
[2020-05-18] MEDS: Albuterol 0.083% 2.5 MG/3 ML Neb Soln NEB SCH (07:27)
[2020-05-18] MEDS: Insulin Lispro 100 Unit/ML 3 ML KwikPen SUBCUT SCH (08:20)
[2020-05-18] MEDS: Citalopram 10 MG Tab PO SCH (08:33)
[2020-05-18] MEDS: Aspirin 81 MG Tab.Chew PO SCH (08:33)
[2020-05-18] MEDS: Apixaban 5 MG Tab PO SCH (08:34)
[2020-05-18] MEDS: Allopurinol 100 MG Tab PO SCH (08:34)
[2020-05-18] MEDS: Lactobacillus Rhamnosus GG (Probiotic) Cap PO SCH (08:34)
[2020-05-18] MEDS: D5 1/2 NS w/ 20 mEq/L KCl 1,000 ML IV SCH (08:39)
--- NOTE | 2020-05-18 09:20 | PCM.PN ---
- General Info Date of Service: 05/18/20 Subjective Update: Unfortunately the patient has declined overnight. She is requiring more oxygen today and is now up to 15 L. She has not been responsive for 2+ days other than very intermittent and very brief periods. At times she appears uncomfortable and has received a few doses of morphine. The morphine does seem to help settle her down. She has not had any fevers. Blood pressure and heart rate have been stable. Even on 15 L of oxygen she has been borderline hypoxic this morning. I talked to her son Ritchie about the situation. He feels that at this point it is time to transition to more of a comfort based approach. He was agreeable to stopping IV fluids and antibiotics. He would like to continue the oxygen at least for the first part of the day until additional family members can be here. - Patient Data Vitals - Most Recent: Last Vital Signs Temp 35.8 C L 05/18/20 08:35 Pulse 102 H 05/18/20 08:35 Resp 18 05/18/20 08:35 BP 97/40 L 05/18/20 08:35 Pulse Ox 88 L 05/18/20 08:35 Weight - Most Recent: 72.121 kg I&O - Last 24 Hours: Intake & Output 05/17/20 05/18/20 05/18/20 22:59 06:59 14:59 Intake Total 400 560 Balance 400 560 Lab Results Last 24 Hours: Laboratory Results - last 24 hr 05/18/20 05/18/20 Range/Units 05:41 05:41 WBC 7.5 (4.5-11.0) K/uL RBC 2.63 L (3.30-5.50) M/uL Hgb 8.0 L (12.0-15.0) g/dL Hct 26.3 L (36.0-48.0) % MCV 100 H (80-98) fL MCH 30 (27-31) pg MCHC 30 L (32-36) % Plt Count 232 (150-400) K/uL Sodium 135 L (140-148) mmol/L Potassium 4.1 (3.6-5.2) mmol/L Chloride 99 L (100-108) mmol/L Carbon Dioxide 31 (21-32) mmol/L Anion Gap 9.1 (5.0-14.0) mmol/L BUN 35 H (7-18) mg/dL Creatinine 1.0 (0.6-1.0) mg/dL Est Cr Clr Drug Dosing 35.90 mL/min Estimated GFR (MDRD) 52 L (>60) Glucose 149 H (74-106) mg/dL Calcium 8.3 L (8.5-10.1) mg/dL Med Orders - Current: Current Medications Acetaminophen (Tylenol) 650 mg PO Q4H PRN PRN Reason: Pain (Mild 1-3)/fever Ondansetron HCl (Zofran) 4 mg IV Q4H PRN PRN Reason: Nausea/Vomiting Sodium Chloride (Hundred Saline Nasal Gel) 0 gm ABRAHAN QID [facility] Last Admin: 05/18/20 05:36 Dose: 1 applic Documented by: Sodium Chloride (Saline Flush) 10 ml FLUSH ASDIRECTED PRN PRN Reason: Keep Vein Open Discontinued Medications Acetaminophen (Tylenol) 650 mg PO Q4H PRN PRN Reason: Pain (Mild 1-3)/fever Last Admin: 05/11/20 19:22 Dose: 650 mg Documented by: Acetaminophen (Tylenol) 650 mg PO ONCALL ONE Stop: 04/13/20 16:31 Last Admin: 04/13/20 17:02 Dose: 650 mg Documented by: Acetaminophen (Tylenol) 650 mg PO ONCALL ONE Stop: 04/14/20 14:31 Last Admin: 04/14/20 15:56 Dose: 650 mg Documented by: Acetaminophen (Tylenol) 650 mg PO ONCALL ONE Stop: 04/15/20 10:31 Last Admin: 04/15/20 09:44 Dose: 650 mg Documented by: Acetaminophen (Tylenol) 650 mg PO ONCALL ONE Stop: 04/16/20 09:01 Last Admin: 04/16/20 09:28 Dose: 650 mg Documented by: Albuterol (Proventil Neb Soln) 2.5 mg NEB Q4H PRN PRN Reason: Shortness Of Breath/wheezing Last Admin: 04/15/20 20:23 Dose: 2.5 mg Documented by: Albuterol (Ventolin Hfa) 2 gm INH Q4H PRN PRN Reason: Shortness of Breath Last Admin: 04/21/20 19:08 Dose: 2 puff Documented by: Albuterol (Proventil Neb Soln) 2.5 mg NEB QIDRT [facility]ABILA Last Admin: 05/18/20 07:27 Dose: 2.5 mg Documented by: Allopurinol (Zyloprim) 200 mg PO DAILY [facility] Last Admin: 05/18/20 08:34 Dose: Not Given Documented by: Apixaban (Eliquis) 5 mg PO BID [facility] Last Admin: 05/18/20 08:34 Dose: Not Given Documented by: Aspirin (Aspirin) 81 mg PO DAILY [facility] Last Admin: 05/18/20 08:33 Dose: Not Given Documented by: Benzocaine/Menthol (Cepacol Sore Throat) 1 lozenge MUCMEM ASDIRECTED PRN PRN Reason: SORE THROAT Benzocaine/Menthol (Cepacol Sore Throat) 1 lozenge MUCMEM ASDIRECTED PRN PRN Reason: SORE THROAT Stop: 06/12/20 23:59 Last Admin: 05/05/20 04:22 Dose: 1 lozenge Documented by: Benzocaine/Menthol (Cepacol Sore Throat) Confirm Administered Dose 1 lozenge .ROUTE .STK-MED ONE Stop: 04/12/20 21:32 Last Admin: 04/12/20 22:57 Dose: Not Given Documented by: Bisacodyl (Dulcolax) 5 mg PO DAILY [facility] Last Admin: 04/21/20 11:06 Dose: 5 mg Documented by: Citalopram Hydrobromide (Celexa) 10 mg PO DAILY [facility] Last Admin: 05/18/20 08:33 Dose: Not Given Documented by: Dexamethasone (Dexamethasone) 6 mg IVPUSH ONETIME ONE Stop: 04/11/20 17:50 Last Admin: 04/11/20 18:08 Dose: 6 mg Documented by: Dexamethasone (Dexamethasone) Confirm Administered Dose 4 mg .ROUTE .STK-MED ONE Stop: 04/11/20 18:01 Last Admin: 04/11/20 18:11 Dose: Not Given Documented by: Dexamethasone (Decadron) 6 mg IVPUSH Q24H [facility] Last Admin: 04/25/20 19:41 Dose: 6 mg Documented by: Dexamethasone (Decadron) 6 mg IVPUSH Q24H [facility] Stop: 05/10/20 11:01 Last Admin: 05/10/20 10:39 Dose: 6 mg Documented by: Dextrose (Glutose 15) 15 gm PO ONETIME PRN PRN Reason: Hypoglycemia Last Admin: 05/06/20 07:30 Dose: 15 gm Documented by: Dextrose (Glutose 15) 15 gm PO ONETIME PRN PRN Reason: Hypoglycemia Dextrose/Water (Dextrose 50% In Water) 50 ml IV ONETIME PRN PRN Reason: Hypoglycemia Dextrose/Water (Dextrose 50% In Water) 50 ml IV ONETIME PRN PRN Reason: Hypoglycemia Dextrose/Water (Dextrose 50% In Water) 50 ml IVPUSH ASDIRECTED PRN PRN Reason: Hypoglycemia Diphenhydramine HCl (Benadryl) 25 mg IVPUSH ONCALL ONE Stop: 04/13/20 16:31 Last Admin: 04/13/20 17:02 Dose: 25 mg Documented by: Diphenhydramine HCl (Benadryl) 25 mg IVPUSH ONCALL ONE Stop: 04/14/20 14:31 Last Admin: 04/14/20 15:56 Dose: 25 mg Documented by: Diphenhydramine HCl (Benadryl) 25 mg PO ONCALL ONE Stop: 04/15/20 10:31 Last Admin: 04/15/20 09:46 Dose: 25 mg Documented by: Diphenhydramine HCl (Benadryl) 25 mg PO ONCALL ONE Stop: 04/16/20 09:01 Last Admin: 04/16/20 09:28 Dose: 25 mg Documented by: Enoxaparin Sodium (Lovenox) 30 mg SUBCUT DAILY [facility] Last Admin: 04/11/20 21:39 Dose: 30 mg Documented by: Enoxaparin Sodium (Lovenox) 30 mg SUBCUT BEDTIME [facility] Last Admin: 04/22/20 20:11 Dose: 30 mg Documented by: Enoxaparin Sodium (Lovenox) 70 mg SUBCUT Q24H [facility] Last Admin: 05/03/20 15:26 Dose: 70 mg Documented by: Furosemide (Lasix) 40 mg IVPUSH NOW ONE Stop: 04/16/20 12:01 Last Admin: 04/16/20 12:26 Dose: 40 mg Documented by: Furosemide (Lasix) 40 mg IV ONETIME ONE Stop: 04/22/20 12:01 Last Admin: 04/22/20 12:01 Dose: 40 mg Documented by: Furosemide (Lasix) 40 mg IVPUSH ONETIME ONE Stop: 04/22/20 21:16 Last Admin: 04/22/20 21:46 Dose: 40 mg Documented by: Furosemide (Lasix) 40 mg IVPUSH ONETIME ONE Stop: 04/24/20 18:17 Last Admin: 04/24/20 18:39 Dose: 40 mg Documented by: Furosemide (Lasix) 40 mg IVPUSH NOW ONE Stop: 04/28/20 17:16 Last Admin: 04/28/20 18:42 Dose: 40 mg Documented by: Furosemide (Lasix) 40 mg IVPUSH NOW ONE Stop: 04/29/20 08:31 Last Admin: 04/29/20 09:28 Dose: 40 mg Documented by: Furosemide (Lasix) 40 mg IVPUSH NOW ONE Stop: 05/01/20 08:41 Last Admin: 05/01/20 08:37 Dose: 40 mg Documented by: Furosemide (Lasix) 20 mg IVPUSH ONETIME ONE Stop: 05/05/20 10:31 Last Admin: 05/05/20 11:08 Dose: 20 mg Documented by: Furosemide (Lasix) 40 mg IV ONETIME ONE Stop: 05/07/20 10:31 Last Admin: 05/07/20 10:45 Dose: 40 mg Documented by: Furosemide (Lasix) 40 mg IVPUSH DAILY [facility] Stop: 05/08/20 09:01 Last Admin: 05/08/20 10:09 Dose: 40 mg Documented by: Furosemide (Lasix) 40 mg IVPUSH NOW ONE Stop: 05/11/20 10:21 Last Admin: 05/11/20 11:40 Dose: 40 mg Documented by: Furosemide (Lasix) 20 mg IVPUSH NOW ONE Stop: 05/13/20 10:01 Last Admin: 05/13/20 10:13 Dose: 20 mg Documented by: Furosemide (Lasix) 20 mg IVPUSH NOW ONE Stop: 05/14/20 13:46 Last Admin: 05/14/20 14:25 Dose: 20 mg Documented by: Furosemide (Lasix) 40 mg IVPUSH ONETIME ONE Stop: 05/17/20 09:31 Last Admin: 05/17/20 11:35 Dose: 40 mg Documented by: Gabapentin (Neurontin) 100 mg PO BEDTIME [facility] Last Admin: 05/12/20 20:53 Dose: 100 mg Documented by: Gabapentin (Neurontin) 100 mg PO BEDTIME [facility] Last Admin: 05/17/20 20:36 Dose: 100 mg Documented by: Glucagon (Glucagen) 1 mg IM ASDIRECTED PRN PRN Reason: Hypoglycemia Hydromorphone HCl (Dilaudid) 0.5 mg IVPUSH Q2H PRN PRN Reason: Pain Last Admin: 05/17/20 03:21 Dose: 0.5 mg Documented by: Sodium Chloride (Normal Saline) 1,000 mls @ 1,000 mls/hr IV ASDIRECTED [facility] Last Admin: 04/11/20 17:14 Dose: 1,000 mls/hr Documented by: Sodium Chloride (Normal Saline) 1,000 mls @ 50 mls/hr IV ASDIRECTED [facility] Last Admin: 04/11/20 22:32 Dose: 50 mls/hr Documented by: Sodium Chloride (Normal Saline) 250 mls @ 20 mls/hr IV ASDIRECTED [facility] Last Admin: 04/13/20 17:55 Dose: 20 mls/hr Documented by: Remdesivir 200 mg/ Sodium (Chloride) 250 mls @ 250 mls/hr IV ONETIME ONE Stop: 04/22/20 14:59 Last Admin: 04/22/20 14:23 Dose: 250 mls/hr Documented by: Remdesivir 100 mg/ Sodium (Chloride) 100 mls @ 100 mls/hr IV Q24H [facility] Stop: 04/26/20 14:59 Last Admin: 04/24/20 13:38 Dose: 100 mls/hr Documented by: Levofloxacin/Dextrose 750 mg/ (Premix) 150 mls @ 100 mls/hr IV Q48H [facility] Last Admin: 04/30/20 11:40 Dose: 100 mls/hr Documented by: Vancomycin HCl 1 gm/ Sodium (Chloride) 250 mls @ 166.667 mls/hr IV Q24H [facility] Last Admin: 05/01/20 13:26 Dose: 166.667 mls/hr Documented by: Meropenem 1 gm/ Sodium (Chloride) 100 mls @ 200 mls/hr IV Q12H [facility] Last Admin: 05/01/20 04:01 Dose: 200 mls/hr Documented by: Ceftriaxone Sodium 1 gm/ (Sodium Chloride) 50 mls @ 100 mls/hr IV Q24H [facility] Last Admin: 05/04/20 14:41 Dose: 100 mls/hr Documented by: Doxycycline Hyclate 100 mg/ (Sodium Chloride) 100 mls @ 100 mls/hr IV Q12H [facility] Last Admin: 05/07/20 11:57 Dose: 100 mls/hr Documented by: Ceftazidime 1 gm/ Sodium (Chloride) 50 mls @ 100 mls/hr IV Q12H [facility] Last Admin: 05/14/20 22:16 Dose: 100 mls/hr Documented by: Levofloxacin/Dextrose 750 mg/ (Premix) 150 mls @ 100 mls/hr IV Q48H [facility] Last Admin: 05/17/20 17:08 Dose: 100 mls/hr Documented by: Vancomycin HCl 1.4 gm/ Sodium (Chloride) 250 mls @ 150 mls/hr IV ONETIME ONE Stop: 05/07/20 17:39 Last Admin: 05/07/20 15:25 Dose: 150 mls/hr Documented by: Vancomycin HCl 1 gm/ Sodium (Chloride) 250 mls @ 166.667 mls/hr IV Q24H [facility] Last Admin: 05/12/20 16:08 Dose: 166.667 mls/hr Documented by: Potassium Chloride/Dextrose/Sod Cl (D5 1/2 Ns W/ 20 Meq/L Kcl) 1,000 mls @ 50 mls/hr IV ASDIRECTED [facility] Last Admin: 05/18/20 08:39 Dose: 50 mls/hr Documented by: Insulin Glargine (Lantus Solostar) 26 units SUBCUT BEDTIME [facility] Last Admin: 04/11/20 23:35 Dose: Not Given Documented by: Insulin Glargine (Lantus Solostar) 24 units SUBCUT BEDTIME [facility] Last Admin: 04/11/20 22:33 Dose: 24 units Documented by: Insulin Glargine (Lantus Solostar) 24 units SUBCUT BEDTIME [facility] Last Admin: 05/05/20 22:35 Dose: 24 units Documented by: Insulin Glargine (Lantus Solostar) 20 units SUBCUT BEDTIME [facility] Last Admin: 05/15/20 20:49 Dose: 20 unit Documented by: Insulin Glargine (Lantus Solostar) 30 units SUBCUT BEDTIME [facility] Last Admin: 05/16/20 20:50 Dose: 30 units Documented by: Insulin Human Lispro (Humalog) 0 unit SUBCUT QIDACANDBED [facility]; Protocol Last Admin: 05/02/20 17:46 Dose: 2 units Documented by: Insulin Human Lispro (Humalog) 0 unit SUBCUT QIDACANDBED [facility]; Protocol Last Admin: 05/02/20 08:24 Dose: Not Given Documented by: Insulin Human Lispro (Humalog) 0 unit SUBCUT QIDACANDBED [facility]; Protocol Last Admin: 05/16/20 08:07 Dose: 3 units Documented by: Insulin Human Lispro (Humalog) 12 unit SUBCUT ONETIME ONE Stop: 05/13/20 22:17 Last Admin: 05/14/20 00:29 Dose: Not Given Documented by: Insulin Human Lispro (Humalog) 0 unit SUBCUT QIDACANDBED [facility]; Protocol Last Admin: 05/18/20 08:20 Dose: 1 units Documented by: Lactobacillus Rhamnosus (Culturelle) 1 cap PO BID [facility] Last Admin: 05/18/20 08:34 Dose: Not Given Documented by: Lidocaine HCl (Xylocaine 2% Jelly) 0 ml TOP QID PRN PRN Reason: Pain Last Admin: 05/14/20 11:09 Dose: 1 applic Documented by: Lorazepam (Ativan) 0.5 mg IVPUSH Q2H PRN PRN Reason: Anxiety Last Admin: 04/30/20 21:00 Dose: 0.5 mg Documented by: Lorazepam (Ativan) 0.5 mg IVPUSH Q2H PRN PRN Reason: Anxiety Last Admin: 05/18/20 05:07 Dose: 0.5 mg Documented by: Magnesium Hydroxide (Milk Of Magnesia) 30 ml PO DAILY [facility] Last Admin: 04/21/20 11:06 Dose: 30 ml Documented by: Melatonin (Melatonin) 9 mg PO BEDTIME PRN PRN Reason: Insomnia Stop: 06/12/20 23:59 Last Admin: 05/11/20 20:50 Dose: 9 mg Documented by: Morphine Sulfate (Morphine) 2 mg IVPUSH Q2H PRN PRN Reason: Pain/Air Hunger Last Admin: 05/18/20 04:36 Dose: 2 mg Documented by: Morphine Sulfate (Morphine) 15 mg PO Q4H PRN PRN Reason: Pain (moderate 4-6) Ondansetron HCl (Zofran) 4 mg IV Q4H PRN PRN Reason: Nausea/Vomiting Oxycodone HCl (Oxycodone) 5 mg PO Q4H PRN PRN Reason: Pain Stop: 06/15/20 23:59 Last Admin: 05/16/20 18:12 Dose: 5 mg Documented by: Polyethylene Glycol (Miralax) 17 gm PO DAILY PRN PRN Reason: Constipation Last Admin: 04/21/20 08:06 Dose: 17 gm Documented by: Polyethylene Glycol (Miralax) 17 gm PO DAILY PRN PRN Reason: Constipation Senna/Docusate Sodium (Senna Plus) 1 tab PO BID [facility] Last Admin: 04/21/20 11:06 Dose: 1 tab Documented by: Sodium Chloride (Saline Flush) 10 ml FLUSH ASDIRECTED PRN PRN Reason: Keep Vein Open Last Admin: 04/15/20 09:45 Dose: 10 ml Documented by: Sodium Chloride ([place] Nasal [place]) 0 ml ABRAHAN Q4H [facility] Last Admin: 05/18/20 08:21 Dose: 1 sprays Documented by: Sodium Polystyrene Sulfonate (Kayexalate) 15 gm PO ONETIME ONE Stop: 04/22/20 10:01 Last Admin: 04/22/20 11:34 Dose: 15 gm Documented by: Tamoxifen Citrate (Nolvadex) 20 mg PO DAILY [facility] Last Admin: 05/05/20 11:09 Dose: Not Given Documented by: Vancomycin HCl (Vancomycin) 1 gm IV .PHARMACY TO DOSE [facility] Stop: 04/30/20 12:30 - Exam Quality Assessment: Supplemental Oxygen General: No Acute Distress, Obtunded. No: Alert Lungs: Normal Respiratory Effort. No: Wheezing Cardiovascular: Regular Rate, Regular Rhythm GI/Abdominal Exam: Soft, No Distention Extremities: No Pedal Edema. No: Increased Warmth Skin: Warm, Dry Psy/Mental Status: No: Alert, Agitated Sepsis Event Note - Evaluation Sepsis Screening Result: No Definite Risk - Focused Exam Vital Signs: Vital Signs Temp Pulse Resp BP Pulse Ox 05/18/20 08:35 35.8 C L 102 H 18 97/40 L 88 L 05/18/20 03:00 36.6 C 86 16 94/36 L 90 L 05/17/20 23:00 36 C L 99 18 99/37 L 91 L - Problem List Review Problem List Initiated/Reviewed/Updated: Yes - My Orders Last 24 Hours: My Active Orders 05/17/20 09:21 Morphine 15 mg PO Q4H PRN Morphine 2 mg IVPUSH Q2H PRN 05/17/20 09:22 Vital Signs [RC] QSHIFT 05/17/20 13:30 D5 1/2 NS w/ 20 mEq/L KCl 1,000 ml IV ASDIRECTED 05/18/20 09:15 Resuscitation Status Routine 05/18/20 09:18 LORazepam [Ativan ORAL Concentrate 1MG/0.5 ML U/D] 0.5 mg PO Q1H PRN 05/18/20 09:18 Morphine [Morphine 10 MG/0.5 ML Oral Syringe] 10 mg PO Q1H PRN - Plan Plan:: ASSESSMENT AND PLAN BILATERAL PNEUMONIA SECONDARY TO [id number] decline overnight and we are transitioning to comfort cares today. -Supplemental oxygen as needed, plan to taper this this afternoon -Morphine for pain or air hunger -Lorazepam as needed for agitation POSSIBLE BACTERIAL PNEUMONIA-antibiotics have been deescalated and now will be stopped with a transition to comfort cares. DECUBITUS ULCER stage I -Frequent turning and repositioning ACUTE DVT, left popliteal vein-noted with lower extremity ultrasound. -Transitioning to comfort cares CHRONIC KIDNEY DISEASE STAGE III-creatinine stable. -Closely monitor urine output and renal function TYPE 2 DIABETES MELLITUS-blood sugar levels have been declining with poor intake. -Discontinuing insulin and Accu-Cheks with transition to comfort cares MAINTENANCE ISSUES -DVT prophylaxis; comfort care -GI prophylaxis; not indicated -Nutrition; patient not able to take anything by mouth DISPOSITION-anticipate discharge to the home after transition to comfort cares Reggie Altamirano MD
[2020-05-18] MEDS: Morphine 10 MG/0.5 ML Oral Syringe PO PRN ×4 (10:29→22:46)
[2020-05-18] MEDS: LORazepam ORAL Concentrate 1MG/0.5ML U/D PO PRN (22:10)
[2020-05-19] MEDS: Morphine 10 MG/0.5 ML Oral Syringe PO PRN ×6 (00:49→10:40)
[2020-05-19] MEDS: Aloe Vera/Sodium Chloride Gel 14.1 GM Tube NAS SCH ×2 (06:46→10:32)
[2020-05-19 07:49] VITALS: BP 109/37; PULSE 105
--- NOTE | 2020-05-19 09:13 | PCM.PN ---
- Patient Data Vitals - Most Recent: Last Vital Signs Temp 36.4 C 05/19/20 07:00 Pulse 105 H 05/19/20 07:00 Resp 20 05/19/20 07:00 BP 109/37 L 05/19/20 07:00 Pulse Ox 91 L 05/19/20 07:00 Weight - Most Recent: 72.121 kg Med Orders - Current: Current Medications Acetaminophen (Tylenol) 650 mg PO Q4H PRN PRN Reason: Pain (Mild 1-3)/fever Lorazepam (Ativan Oral Concentrate 1mg/0.5 Ml U/D) 0.5 mg PO Q1H PRN PRN Reason: Agitation Last Admin: 05/18/20 22:10 Dose: 0.5 mg Documented by: Morphine Sulfate (Morphine 10 Mg/0.5 Ml Oral Syringe) 10 mg PO Q1H PRN PRN Reason: Pain/Air Hunger Last Admin: 05/19/20 05:49 Dose: 10 mg Documented by: Ondansetron HCl (Zofran) 4 mg IV Q4H PRN PRN Reason: Nausea/Vomiting Sodium Chloride (Blum Saline Nasal Gel) 0 gm ABRAHAN QID NABILA Last Admin: 05/19/20 06:46 Dose: Not Given Documented by: Sodium Chloride (Saline Flush) 10 ml FLUSH ASDIRECTED PRN PRN Reason: Keep Vein Open Discontinued Medications Acetaminophen (Tylenol) 650 mg PO Q4H PRN PRN Reason: Pain (Mild 1-3)/fever Last Admin: 05/11/20 19:22 Dose: 650 mg Documented by: Acetaminophen (Tylenol) 650 mg PO ONCALL ONE Stop: 04/13/20 16:31 Last Admin: 04/13/20 17:02 Dose: 650 mg Documented by: Acetaminophen (Tylenol) 650 mg PO ONCALL ONE Stop: 04/14/20 14:31 Last Admin: 04/14/20 15:56 Dose: 650 mg Documented by: Acetaminophen (Tylenol) 650 mg PO ONCALL ONE Stop: 04/15/20 10:31 Last Admin: 04/15/20 09:44 Dose: 650 mg Documented by: Acetaminophen (Tylenol) 650 mg PO ONCALL ONE Stop: 04/16/20 09:01 Last Admin: 04/16/20 09:28 Dose: 650 mg Documented by: Albuterol (Proventil Neb Soln) 2.5 mg NEB Q4H PRN PRN Reason: Shortness Of Breath/wheezing Last Admin: 04/15/20 20:23 Dose: 2.5 mg Documented by: Albuterol (Ventolin Hfa) 2 gm INH Q4H PRN PRN Reason: Shortness of Breath Last Admin: 04/21/20 19:08 Dose: 2 puff Documented by: Albuterol (Proventil Neb Soln) 2.5 mg NEB QIDRT [facility] Last Admin: 05/18/20 07:27 Dose: 2.5 mg Documented by: Allopurinol (Zyloprim) 200 mg PO DAILY [facility] Last Admin: 05/18/20 08:34 Dose: Not Given Documented by: Apixaban (Eliquis) 5 mg PO BID [facility] Last Admin: 05/18/20 08:34 Dose: Not Given Documented by: Aspirin (Aspirin) 81 mg PO DAILY [facility] Last Admin: 05/18/20 08:33 Dose: Not Given Documented by: Benzocaine/Menthol (Cepacol Sore Throat) 1 lozenge MUCMEM ASDIRECTED PRN PRN Reason: SORE THROAT Benzocaine/Menthol (Cepacol Sore Throat) 1 lozenge MUCMEM ASDIRECTED PRN PRN Reason: SORE THROAT Stop: 06/12/20 23:59 Last Admin: 05/05/20 04:22 Dose: 1 lozenge Documented by: Benzocaine/Menthol (Cepacol Sore Throat) Confirm Administered Dose 1 lozenge .ROUTE .STK-MED ONE Stop: 04/12/20 21:32 Last Admin: 04/12/20 22:57 Dose: Not Given Documented by: Bisacodyl (Dulcolax) 5 mg PO DAILY [facility] Last Admin: 04/21/20 11:06 Dose: 5 mg Documented by: Citalopram Hydrobromide (Celexa) 10 mg PO DAILY [facility] Last Admin: 05/18/20 08:33 Dose: Not Given Documented by: Dexamethasone (Dexamethasone) 6 mg IVPUSH ONETIME ONE Stop: 04/11/20 17:50 Last Admin: 04/11/20 18:08 Dose: 6 mg Documented by: Dexamethasone (Dexamethasone) Confirm Administered Dose 4 mg .ROUTE .STK-MED ONE Stop: 04/11/20 18:01 Last Admin: 04/11/20 18:11 Dose: Not Given Documented by: Dexamethasone (Decadron) 6 mg IVPUSH Q24H [facility] Last Admin: 04/25/20 19:41 Dose: 6 mg Documented by: Dexamethasone (Decadron) 6 mg IVPUSH Q24H [facility] Stop: 05/10/20 11:01 Last Admin: 05/10/20 10:39 Dose: 6 mg Documented by: Dextrose (Glutose 15) 15 gm PO ONETIME PRN PRN Reason: Hypoglycemia Last Admin: 05/06/20 07:30 Dose: 15 gm Documented by: Dextrose (Glutose 15) 15 gm PO ONETIME PRN PRN Reason: Hypoglycemia Dextrose/Water (Dextrose 50% In Water) 50 ml IV ONETIME PRN PRN Reason: Hypoglycemia Dextrose/Water (Dextrose 50% In Water) 50 ml IV ONETIME PRN PRN Reason: Hypoglycemia Dextrose/Water (Dextrose 50% In Water) 50 ml IVPUSH ASDIRECTED PRN PRN Reason: Hypoglycemia Diphenhydramine HCl (Benadryl) 25 mg IVPUSH ONCALL ONE Stop: 04/13/20 16:31 Last Admin: 04/13/20 17:02 Dose: 25 mg Documented by: Diphenhydramine HCl (Benadryl) 25 mg IVPUSH ONCALL ONE Stop: 04/14/20 14:31 Last Admin: 04/14/20 15:56 Dose: 25 mg Documented by: Diphenhydramine HCl (Benadryl) 25 mg PO ONCALL ONE Stop: 04/15/20 10:31 Last Admin: 04/15/20 09:46 Dose: 25 mg Documented by: Diphenhydramine HCl (Benadryl) 25 mg PO ONCALL ONE Stop: 04/16/20 09:01 Last Admin: 04/16/20 09:28 Dose: 25 mg Documented by: Enoxaparin Sodium (Lovenox) 30 mg SUBCUT DAILY [facility] Last Admin: 04/11/20 21:39 Dose: 30 mg Documented by: Enoxaparin Sodium (Lovenox) 30 mg SUBCUT BEDTIME [facility] Last Admin: 04/22/20 20:11 Dose: 30 mg Documented by: Enoxaparin Sodium (Lovenox) 70 mg SUBCUT Q24H [facility] Last Admin: 05/03/20 15:26 Dose: 70 mg Documented by: Furosemide (Lasix) 40 mg IVPUSH NOW ONE Stop: 04/16/20 12:01 Last Admin: 04/16/20 12:26 Dose: 40 mg Documented by: Furosemide (Lasix) 40 mg IV ONETIME ONE Stop: 04/22/20 12:01 Last Admin: 04/22/20 12:01 Dose: 40 mg Documented by: Furosemide (Lasix) 40 mg IVPUSH ONETIME ONE Stop: 04/22/20 21:16 Last Admin: 04/22/20 21:46 Dose: 40 mg Documented by: Furosemide (Lasix) 40 mg IVPUSH ONETIME ONE Stop: 04/24/20 18:17 Last Admin: 04/24/20 18:39 Dose: 40 mg Documented by: Furosemide (Lasix) 40 mg IVPUSH NOW ONE Stop: 04/28/20 17:16 Last Admin: 04/28/20 18:42 Dose: 40 mg Documented by: Furosemide (Lasix) 40 mg IVPUSH NOW ONE Stop: 04/29/20 08:31 Last Admin: 04/29/20 09:28 Dose: 40 mg Documented by: Furosemide (Lasix) 40 mg IVPUSH NOW ONE Stop: 05/01/20 08:41 Last Admin: 05/01/20 08:37 Dose: 40 mg Documented by: Furosemide (Lasix) 20 mg IVPUSH ONETIME ONE Stop: 05/05/20 10:31 Last Admin: 05/05/20 11:08 Dose: 20 mg Documented by: Furosemide (Lasix) 40 mg IV ONETIME ONE Stop: 05/07/20 10:31 Last Admin: 05/07/20 10:45 Dose: 40 mg Documented by: Furosemide (Lasix) 40 mg IVPUSH DAILY [facility] Stop: 05/08/20 09:01 Last Admin: 05/08/20 10:09 Dose: 40 mg Documented by: Furosemide (Lasix) 40 mg IVPUSH NOW ONE Stop: 05/11/20 10:21 Last Admin: 05/11/20 11:40 Dose: 40 mg Documented by: Furosemide (Lasix) 20 mg IVPUSH NOW ONE Stop: 05/13/20 10:01 Last Admin: 05/13/20 10:13 Dose: 20 mg Documented by: Furosemide (Lasix) 20 mg IVPUSH NOW ONE Stop: 05/14/20 13:46 Last Admin: 05/14/20 14:25 Dose: 20 mg Documented by: Furosemide (Lasix) 40 mg IVPUSH ONETIME ONE Stop: 05/17/20 09:31 Last Admin: 05/17/20 11:35 Dose: 40 mg Documented by: Gabapentin (Neurontin) 100 mg PO BEDTIME [facility] Last Admin: 05/12/20 20:53 Dose: 100 mg Documented by: Gabapentin (Neurontin) 100 mg PO BEDTIME [facility] Last Admin: 05/17/20 20:36 Dose: 100 mg Documented by: Glucagon (Glucagen) 1 mg IM ASDIRECTED PRN PRN Reason: Hypoglycemia Hydromorphone HCl (Dilaudid) 0.5 mg IVPUSH Q2H PRN PRN Reason: Pain Last Admin: 05/17/20 03:21 Dose: 0.5 mg Documented by: Sodium Chloride (Normal Saline) 1,000 mls @ 1,000 mls/hr IV ASDIRECTED [facility] Last Admin: 04/11/20 17:14 Dose: 1,000 mls/hr Documented by: Sodium Chloride (Normal Saline) 1,000 mls @ 50 mls/hr IV ASDIRECTED [facility] Last Admin: 04/11/20 22:32 Dose: 50 mls/hr Documented by: Sodium Chloride (Normal Saline) 250 mls @ 20 mls/hr IV ASDIRECTED [facility] Last Admin: 04/13/20 17:55 Dose: 20 mls/hr Documented by: Remdesivir 200 mg/ Sodium (Chloride) 250 mls @ 250 mls/hr IV ONETIME ONE Stop: 04/22/20 14:59 Last Admin: 04/22/20 14:23 Dose: 250 mls/hr Documented by: Remdesivir 100 mg/ Sodium (Chloride) 100 mls @ 100 mls/hr IV Q24H [facility] Stop: 04/26/20 14:59 Last Admin: 04/24/20 13:38 Dose: 100 mls/hr Documented by: Levofloxacin/Dextrose 750 mg/ (Premix) 150 mls @ 100 mls/hr IV Q48H [facility] Last Admin: 04/30/20 11:40 Dose: 100 mls/hr Documented by: Vancomycin HCl 1 gm/ Sodium (Chloride) 250 mls @ 166.667 mls/hr IV Q24H [facility] Last Admin: 05/01/20 13:26 Dose: 166.667 mls/hr Documented by: Meropenem 1 gm/ Sodium (Chloride) 100 mls @ 200 mls/hr IV Q12H [facility] Last Admin: 05/01/20 04:01 Dose: 200 mls/hr Documented by: Ceftriaxone Sodium 1 gm/ (Sodium Chloride) 50 mls @ 100 mls/hr IV Q24H [facility] Last Admin: 05/04/20 14:41 Dose: 100 mls/hr Documented by: Doxycycline Hyclate 100 mg/ (Sodium Chloride) 100 mls @ 100 mls/hr IV Q12H [facility] Last Admin: 05/07/20 11:57 Dose: 100 mls/hr Documented by: Ceftazidime 1 gm/ Sodium (Chloride) 50 mls @ 100 mls/hr IV Q12H [facility] Last Admin: 05/14/20 22:16 Dose: 100 mls/hr Documented by: Levofloxacin/Dextrose 750 mg/ (Premix) 150 mls @ 100 mls/hr IV Q48H [facility] Last Admin: 05/17/20 17:08 Dose: 100 mls/hr Documented by: Vancomycin HCl 1.4 gm/ Sodium (Chloride) 250 mls @ 150 mls/hr IV ONETIME ONE Stop: 05/07/20 17:39 Last Admin: 05/07/20 15:25 Dose: 150 mls/hr Documented by: Vancomycin HCl 1 gm/ Sodium (Chloride) 250 mls @ 166.667 mls/hr IV Q24H [facility] Last Admin: 05/12/20 16:08 Dose: 166.667 mls/hr Documented by: Potassium Chloride/Dextrose/Sod Cl (D5 1/2 Ns W/ 20 Meq/L Kcl) 1,000 mls @ 50 mls/hr IV ASDIRECTED [facility] Last Admin: 05/18/20 08:39 Dose: 50 mls/hr Documented by: Insulin Glargine (Lantus Solostar) 26 units SUBCUT BEDTIME [facility] Last Admin: 04/11/20 23:35 Dose: Not Given Documented by: Insulin Glargine (Lantus Solostar) 24 units SUBCUT BEDTIME [facility] Last Admin: 04/11/20 22:33 Dose: 24 units Documented by: Insulin Glargine (Lantus Solostar) 24 units SUBCUT BEDTIME [facility] Last Admin: 05/05/20 22:35 Dose: 24 units Documented by: Insulin Glargine (Lantus Solostar) 20 units SUBCUT BEDTIME [facility] Last Admin: 05/15/20 20:49 Dose: 20 unit Documented by: Insulin Glargine (Lantus Solostar) 30 units SUBCUT BEDTIME [facility] Last Admin: 05/16/20 20:50 Dose: 30 units Documented by: Insulin Human Lispro (Humalog) 0 unit SUBCUT QIDACANDBED [facility]; Protocol Last Admin: 05/02/20 17:46 Dose: 2 units Documented by: Insulin Human Lispro (Humalog) 0 unit SUBCUT QIDACANDBED [facility]; Protocol Last Admin: 05/02/20 08:24 Dose: Not Given Documented by: Insulin Human Lispro (Humalog) 0 unit SUBCUT QIDACANDBED [facility]; Protocol Last Admin: 05/16/20 08:07 Dose: 3 units Documented by: Insulin Human Lispro (Humalog) 12 unit SUBCUT ONETIME ONE Stop: 05/13/20 22:17 Last Admin: 05/14/20 00:29 Dose: Not Given Documented by: Insulin Human Lispro (Humalog) 0 unit SUBCUT QIDACANDBED [facility]; Protocol Last Admin: 05/18/20 08:20 Dose: 1 units Documented by: Lactobacillus Rhamnosus (Culturelle) 1 cap PO BID [facility] Last Admin: 05/18/20 08:34 Dose: Not Given Documented by: Lidocaine HCl (Xylocaine 2% Jelly) 0 ml TOP QID PRN PRN Reason: Pain Last Admin: 05/14/20 11:09 Dose: 1 applic Documented by: Lorazepam (Ativan) 0.5 mg IVPUSH Q2H PRN PRN Reason: Anxiety Last Admin: 04/30/20 21:00 Dose: 0.5 mg Documented by: Lorazepam (Ativan) 0.5 mg IVPUSH Q2H PRN PRN Reason: Anxiety Last Admin: 05/18/20 05:07 Dose: 0.5 mg Documented by: Magnesium Hydroxide (Milk Of Magnesia) 30 ml PO DAILY [facility] Last Admin: 04/21/20 11:06 Dose: 30 ml Documented by: Melatonin (Melatonin) 9 mg PO BEDTIME PRN PRN Reason: Insomnia Stop: 06/12/20 23:59 Last Admin: 05/11/20 20:50 Dose: 9 mg Documented by: Morphine Sulfate (Morphine) 2 mg IVPUSH Q2H PRN PRN Reason: Pain/Air Hunger Last Admin: 05/18/20 04:36 Dose: 2 mg Documented by: Morphine Sulfate (Morphine) 15 mg PO Q4H PRN PRN Reason: Pain (moderate 4-6) Ondansetron HCl (Zofran) 4 mg IV Q4H PRN PRN Reason: Nausea/Vomiting Oxycodone HCl (Oxycodone) 5 mg PO Q4H PRN PRN Reason: Pain Stop: 06/15/20 23:59 Last Admin: 05/16/20 18:12 Dose: 5 mg Documented by: Polyethylene Glycol (Miralax) 17 gm PO DAILY PRN PRN Reason: Constipation Last Admin: 04/21/20 08:06 Dose: 17 gm Documented by: Polyethylene Glycol (Miralax) 17 gm PO DAILY PRN PRN Reason: Constipation Senna/Docusate Sodium (Senna Plus) 1 tab PO BID [facility] Last Admin: 04/21/20 11:06 Dose: 1 tab Documented by: Sodium Chloride (Saline Flush) 10 ml FLUSH ASDIRECTED PRN PRN Reason: Keep Vein Open Last Admin: 04/15/20 09:45 Dose: 10 ml Documented by: Sodium Chloride ([place] Nasal [place]) 0 ml ABRAHAN Q4H [facility] Last Admin: 05/18/20 08:21 Dose: 1 sprays Documented by: Sodium Polystyrene Sulfonate (Kayexalate) 15 gm PO ONETIME ONE Stop: 04/22/20 10:01 Last Admin: 04/22/20 11:34 Dose: 15 gm Documented by: Tamoxifen Citrate (Nolvadex) 20 mg PO DAILY [facility] Last Admin: 05/05/20 11:09 Dose: Not Given Documented by: Vancomycin HCl (Vancomycin) 1 gm IV .PHARMACY TO DOSE [facility] Stop: 04/30/20 12:30 Sepsis Event Note - Evaluation Sepsis Screening Result: No Definite Risk - Focused Exam Vital Signs: Vital Signs Temp Pulse Resp BP Pulse Ox 05/19/20 07:00 36.4 C 105 H 20 109/37 L 91 L 05/19/20 02:37 36.1 C 101 H 20 115/34 L 90 L - My Orders Last 24 Hours: My Active Orders 05/18/20 09:15 Resuscitation Status Routine 05/18/20 09:18 LORazepam [Ativan ORAL Concentrate 1MG/0.5 ML U/D] 0.5 mg PO Q1H PRN Morphine [Morphine 10 MG/0.5 ML Oral Syringe] 10 mg PO Q1H PRN - Plan Plan:: ASSESSMENT AND PLAN BILATERAL PNEUMONIA SECONDARY TO [id number] decline overnight and we are transitioning to comfort cares today. -Supplemental oxygen as needed, plan to taper this this afternoon -Morphine for pain or air hunger -Lorazepam as needed for agitation POSSIBLE BACTERIAL PNEUMONIA-antibiotics have been deescalated and now will be stopped with a transition to comfort cares. DECUBITUS ULCER stage I -Frequent turning and repositioning ACUTE DVT, left popliteal vein-noted with lower extremity ultrasound. -Transitioning to comfort cares CHRONIC KIDNEY DISEASE STAGE III-creatinine stable. -Closely monitor urine output and renal function TYPE 2 DIABETES MELLITUS-blood sugar levels have been declining with poor intake. -Discontinuing insulin and Accu-Cheks with transition to comfort cares MAINTENANCE ISSUES -DVT prophylaxis; comfort care -GI prophylaxis; not indicated -Nutrition; patient not able to take anything by mouth DISPOSITION-anticipate discharge to the home after transition to comfort cares Reggie Altamirano MD
[2020-05-19] MEDS: LORazepam ORAL Concentrate 1MG/0.5ML U/D PO PRN (09:51)
--- NOTE | 2020-05-19 12:22 | PCM.DCSUM1 ---
Discharge Summary - Hospital Course Brief History: 89-year-old female with a history of insulin-dependent diabetes mellitus who presented with cough, shortness of breath, weakness as well as diarrhea and vomiting. She was admitted for management of COVID-19 pneumonia with acute respiratory failure with hypoxia. Diagnosis: Stroke: No - Discharge Data Discharge Date: 05/19/20 Discharge Disposition: 20 Preliminary Cause of *Q: Respiratory Failure (covid 19 pneumonia) Condition: - Referral to Home Health Primary Care Physician: PCP None - Patient Summary/Data Consults: Consultations 05/12/20 11:21 Consult to Physician [CONS] Routine Consulting Provider: Ace Freedman Call Completed to Consulting Physician: Yes Reason for Consult: Decubitus ulcer Hospital Course: Rhona presented to the emergency room with cough, shortness of breath, profound weakness as well as vomiting and diarrhea. In the emergency room she was found to be mildly dehydrated as well as Covid positive. She was hypoxic. She did receive dexamethasone in the emergency room and was admitted to the hospital for management of COVID-19 with bilateral pneumonia and respiratory failure. She was started on dexamethasone as well as convalescent plasma. Remdesivir was not initiated at the time of admission because of her poor renal function. Over the first several days she remained relatively stable but was on a large amount of supplemental oxygen via high flow nasal cannula. She tolerated the plasma infusion. Unfortunately after several days her condition started to decline and she did require the use of noninvasive positive pressure ventilation. At the time of this decline discussions were held about the risk versus benefit of remdesivir and it was felt that given her declining status the benefits outweighed the risks at this point. She did receive 5 days of remdesivir in addition to the 3 days of plasma and 10 days of steroids. She remained relatively stable but quite compromised for the next couple of weeks. She was intermittently needing noninvasive ventilation and when she was not using the NIPPV she was on large quantities of high flow nasal cannula supplemental oxygen. About 10 days into the hospital stay she was noted to have some swelling of the right lower leg and was diagnosed with a DVT. Her enoxaparin was increased from prophylactic to treatment dosing. Over the next week or so she did remain clinically stable but still very compromised. She remained full code. Family remained optimistic that she was going to make some progress. She was stable at this point but not really getting any better. Unfortunately her respiratory status declined further just over 3 weeks end of the hospital stay. Repeat cultures were obtained a repeat chest x-ray was obtained and broad- spectrum antibiotics were initiated. Her infiltrates seem to be worsening. There was concern that she may have a bacterial infection on top of the Covid infection. Initially the antibiotics seem to be helping but then she went back to significant compromise with needing 10 to 12 L or sometimes more oxygen via high flow nasal cannula. She intermittently received diuresis to maintain a negative fluid balance. All of her cultures were negative. With routine checking of the D-dimer and C-reactive protein we did see a rise in both of these values. She was already on the treatment dose enoxaparin for the DVT. With the rising CRP we did elect to try another round of steroids though it was thought that the potential for benefit was not great. I did also call over to [facility] in [place] and talked with her critical care team. My conversation was based around is there anything else that we can try to help this lady who seems to be slowly getting worse throughout the course of the hospital stay. They felt that we had provided all the available treatment at that point and that she was likely too weak and debilitated to recover. Discussions were held with the family after this and the decision was made to transition to a DO NOT RESUSCITATE and DO NOT INTUBATE status. We elected to continue the current level of care including broad-spectrum antibiotics as well as intermittent diuretics and we would consider noninvasive ventilation if needed. The patient did have a small rally the week before she passed but then about 5 days before her she started to decline. She became much less responsive and very lethargic. Her supplemental oxygen needs increased back up to 15 L. She was not able to eat or drink. She was too weak to get out of bed. After several discussions with the family we elected to transition to comfort cares and all treatments were discontinued with the exception of comfort medications and the supplemental oxygen. After about 24 hours with the oxygen the family decided to withdraw the oxygen and the patient passed peacefully a short while later. No attempts at resuscitation were made per her previously expressed wishes. Cause of is COVID-19 pneumonia complicated by acute respiratory failure with hypoxia and contributing conditions would be stage III chronic kidney disease and insulin-dependent diabetes. - Discharge Plan Home Medications: Home Meds Aspirin 81 mg ORAL.INH DAILY 02/15/13 [History] Insulin Detemir [Levemir] 24 unit SUBCUT BEDTIME 02/15/13 [History] Insulin Aspart [NovoLOG] 12 unit SQ BID 09/23/13 [History] Tamoxifen [Nolvadex] 20 mg PO DAILY 03/01/19 [History] allopurinoL [Zyloprim] 200 mg PO DAILY 03/01/19 [History] Acetaminophen [Tylenol Extra Strength] 500 mg PO Q6H PRN 04/11/20 [History] Gabapentin [Neurontin] 100 mg PO BEDTIME 04/11/20 [History] Mv-Mn/Iron/Folic Acid/Herb 190 [Vitamin D3 Complete Caplet] 1 tab PO DAILY 04/11/20 [History] Referrals: PCP,None [Primary Care Provider] - - Discharge Summary/Plan Comment DC Time >30 min.: Yes (50-review of prolonged hospital stay ) - Patient Data Vitals - Most Recent: Last Vital Signs Temp 36.4 C 05/19/20 07:00 Pulse 105 H 05/19/20 07:00 Resp 20 05/19/20 07:00 BP 109/37 L 05/19/20 07:00 Pulse Ox 91 L 05/19/20 07:00 Weight - Most Recent: 72.121 kg Med Orders - Current: Current Medications Acetaminophen (Tylenol) 650 mg PO Q4H PRN PRN Reason: Pain (Mild 1-3)/fever Lorazepam (Ativan Oral Concentrate 1mg/0.5 Ml U/D) 0.5 mg PO Q1H PRN PRN Reason: Agitation Last Admin: 05/19/20 09:51 Dose: 0.5 mg Documented by: Morphine Sulfate (Morphine 10 Mg/0.5 Ml Oral Syringe) 10 mg PO Q15M PRN PRN Reason: Pain/Air Hunger Last Admin: 05/19/20 10:40 Dose: 10 mg Documented by: Ondansetron HCl (Zofran) 4 mg IV Q4H PRN PRN Reason: Nausea/Vomiting Sodium Chloride (Thayer Saline Nasal Gel) 0 gm ABRAHAN QID NABILA Last Admin: 05/19/20 10:32 Dose: Not Given Documented by: Sodium Chloride (Saline Flush) 10 ml FLUSH ASDIRECTED PRN PRN Reason: Keep Vein Open Discontinued Medications Acetaminophen (Tylenol) 650 mg PO Q4H PRN PRN Reason: Pain (Mild 1-3)/fever Last Admin: 05/11/20 19:22 Dose: 650 mg Documented by: Acetaminophen (Tylenol) 650 mg PO ONCALL ONE Stop: 04/13/20 16:31 Last Admin: 04/13/20 17:02 Dose: 650 mg Documented by: Acetaminophen (Tylenol) 650 mg PO ONCALL ONE Stop: 04/14/20 14:31 Last Admin: 04/14/20 15:56 Dose: 650 mg Documented by: Acetaminophen (Tylenol) 650 mg PO ONCALL ONE Stop: 04/15/20 10:31 Last Admin: 04/15/20 09:44 Dose: 650 mg Documented by: Acetaminophen (Tylenol) 650 mg PO ONCALL ONE Stop: 04/16/20 09:01 Last Admin: 04/16/20 09:28 Dose: 650 mg Documented by: Albuterol (Proventil Neb Soln) 2.5 mg NEB Q4H PRN PRN Reason: Shortness Of Breath/wheezing Last Admin: 04/15/20 20:23 Dose: 2.5 mg Documented by: Albuterol (Ventolin Hfa) 2 gm INH Q4H PRN PRN Reason: Shortness of Breath Last Admin: 04/21/20 19:08 Dose: 2 puff Documented by: Albuterol (Proventil Neb Soln) 2.5 mg NEB QIDRT [facility] Last Admin: 05/18/20 07:27 Dose: 2.5 mg Documented by: Allopurinol (Zyloprim) 200 mg PO DAILY [facility] Last Admin: 05/18/20 08:34 Dose: Not Given Documented by: Apixaban (Eliquis) 5 mg PO BID [facility] Last Admin: 05/18/20 08:34 Dose: Not Given Documented by: Aspirin (Aspirin) 81 mg PO DAILY [facility] Last Admin: 05/18/20 08:33 Dose: Not Given Documented by: Benzocaine/Menthol (Cepacol Sore Throat) 1 lozenge MUCMEM ASDIRECTED PRN PRN Reason: SORE THROAT Benzocaine/Menthol (Cepacol Sore Throat) 1 lozenge MUCMEM ASDIRECTED PRN PRN Reason: SORE THROAT Stop: 06/12/20 23:59 Last Admin: 05/05/20 04:22 Dose: 1 lozenge Documented by: Benzocaine/Menthol (Cepacol Sore Throat) Confirm Administered Dose 1 lozenge .ROUTE .STK-MED ONE Stop: 04/12/20 21:32 Last Admin: 04/12/20 22:57 Dose: Not Given Documented by: Bisacodyl (Dulcolax) 5 mg PO DAILY [facility] Last Admin: 04/21/20 11:06 Dose: 5 mg Documented by: Citalopram Hydrobromide (Celexa) 10 mg PO DAILY [facility] Last Admin: 05/18/20 08:33 Dose: Not Given Documented by: Dexamethasone (Dexamethasone) 6 mg IVPUSH ONETIME ONE Stop: 04/11/20 17:50 Last Admin: 04/11/20 18:08 Dose: 6 mg Documented by: Dexamethasone (Dexamethasone) Confirm Administered Dose 4 mg .ROUTE .STK-MED ONE Stop: 04/11/20 18:01 Last Admin: 04/11/20 18:11 Dose: Not Given Documented by: Dexamethasone (Decadron) 6 mg IVPUSH Q24H [facility] Last Admin: 04/25/20 19:41 Dose: 6 mg Documented by: Dexamethasone (Decadron) 6 mg IVPUSH Q24H NAB[facility]A Stop: 05/10/20 11:01 Last Admin: 05/10/20 10:39 Dose: 6 mg Documented by: Dextrose (Glutose 15) 15 gm PO ONETIME PRN PRN Reason: Hypoglycemia Last Admin: 05/06/20 07:30 Dose: 15 gm Documented by: Dextrose (Glutose 15) 15 gm PO ONETIME PRN PRN Reason: Hypoglycemia Dextrose/Water (Dextrose 50% In Water) 50 ml IV ONETIME PRN PRN Reason: Hypoglycemia Dextrose/Water (Dextrose 50% In Water) 50 ml IV ONETIME PRN PRN Reason: Hypoglycemia Dextrose/Water (Dextrose 50% In Water) 50 ml IVPUSH ASDIRECTED PRN PRN Reason: Hypoglycemia Diphenhydramine HCl (Benadryl) 25 mg IVPUSH ONCALL ONE Stop: 04/13/20 16:31 Last Admin: 04/13/20 17:02 Dose: 25 mg Documented by: Diphenhydramine HCl (Benadryl) 25 mg IVPUSH ONCALL ONE Stop: 04/14/20 14:31 Last Admin: 04/14/20 15:56 Dose: 25 mg Documented by: Diphenhydramine HCl (Benadryl) 25 mg PO ONCALL ONE Stop: 04/15/20 10:31 Last Admin: 04/15/20 09:46 Dose: 25 mg Documented by: Diphenhydramine HCl (Benadryl) 25 mg PO ONCALL ONE Stop: 04/16/20 09:01 Last Admin: 04/16/20 09:28 Dose: 25 mg Documented by: Enoxaparin Sodium (Lovenox) 30 mg SUBCUT DAILY [facility] Last Admin: 04/11/20 21:39 Dose: 30 mg Documented by: Enoxaparin Sodium (Lovenox) 30 mg SUBCUT BEDTIME [facility] Last Admin: 04/22/20 20:11 Dose: 30 mg Documented by: Enoxaparin Sodium (Lovenox) 70 mg SUBCUT Q24H [facility] Last Admin: 05/03/20 15:26 Dose: 70 mg Documented by: Furosemide (Lasix) 40 mg IVPUSH NOW ONE Stop: 04/16/20 12:01 Last Admin: 04/16/20 12:26 Dose: 40 mg Documented by: Furosemide (Lasix) 40 mg IV ONETIME ONE Stop: 04/22/20 12:01 Last Admin: 04/22/20 12:01 Dose: 40 mg Documented by: Furosemide (Lasix) 40 mg IVPUSH ONETIME ONE Stop: 04/22/20 21:16 Last Admin: 04/22/20 21:46 Dose: 40 mg Documented by: Furosemide (Lasix) 40 mg IVPUSH ONETIME ONE Stop: 04/24/20 18:17 Last Admin: 04/24/20 18:39 Dose: 40 mg Documented by: Furosemide (Lasix) 40 mg IVPUSH NOW ONE Stop: 04/28/20 17:16 Last Admin: 04/28/20 18:42 Dose: 40 mg Documented by: Furosemide (Lasix) 40 mg IVPUSH NOW ONE Stop: 04/29/20 08:31 Last Admin: 04/29/20 09:28 Dose: 40 mg Documented by: Furosemide (Lasix) 40 mg IVPUSH NOW ONE Stop: 05/01/20 08:41 Last Admin: 05/01/20 08:37 Dose: 40 mg Documented by: Furosemide (Lasix) 20 mg IVPUSH ONETIME ONE Stop: 05/05/20 10:31 Last Admin: 05/05/20 11:08 Dose: 20 mg Documented by: Furosemide (Lasix) 40 mg IV ONETIME ONE Stop: 05/07/20 10:31 Last Admin: 05/07/20 10:45 Dose: 40 mg Documented by: Furosemide (Lasix) 40 mg IVPUSH DAILY [facility] Stop: 05/08/20 09:01 Last Admin: 05/08/20 10:09 Dose: 40 mg Documented by: Furosemide (Lasix) 40 mg IVPUSH NOW ONE Stop: 05/11/20 10:21 Last Admin: 05/11/20 11:40 Dose: 40 mg Documented by: Furosemide (Lasix) 20 mg IVPUSH NOW ONE Stop: 05/13/20 10:01 Last Admin: 05/13/20 10:13 Dose: 20 mg Documented by: Furosemide (Lasix) 20 mg IVPUSH NOW ONE Stop: 05/14/20 13:46 Last Admin: 05/14/20 14:25 Dose: 20 mg Documented by: Furosemide (Lasix) 40 mg IVPUSH ONETIME ONE Stop: 05/17/20 09:31 Last Admin: 05/17/20 11:35 Dose: 40 mg Documented by: Gabapentin (Neurontin) 100 mg PO BEDTIME [facility] Last Admin: 05/12/20 20:53 Dose: 100 mg Documented by: Gabapentin (Neurontin) 100 mg PO BEDTIME [facility] Last Admin: 05/17/20 20:36 Dose: 100 mg Documented by: Glucagon (Glucagen) 1 mg IM ASDIRECTED PRN PRN Reason: Hypoglycemia Hydromorphone HCl (Dilaudid) 0.5 mg IVPUSH Q2H PRN PRN Reason: Pain Last Admin: 05/17/20 03:21 Dose: 0.5 mg Documented by: Sodium Chloride (Normal Saline) 1,000 mls @ 1,000 mls/hr IV ASDIRECTED [facility] Last Admin: 04/11/20 17:14 Dose: 1,000 mls/hr Documented by: Sodium Chloride (Normal Saline) 1,000 mls @ 50 mls/hr IV ASDIRECTED [facility] Last Admin: 04/11/20 22:32 Dose: 50 mls/hr Documented by: Sodium Chloride (Normal Saline) 250 mls @ 20 mls/hr IV ASDIRECTED [facility] Last Admin: 04/13/20 17:55 Dose: 20 mls/hr Documented by: Remdesivir 200 mg/ Sodium (Chloride) 250 mls @ 250 mls/hr IV ONETIME ONE Stop: 04/22/20 14:59 Last Admin: 04/22/20 14:23 Dose: 250 mls/hr Documented by: Remdesivir 100 mg/ Sodium (Chloride) 100 mls @ 100 mls/hr IV Q24H [facility] Stop: 04/26/20 14:59 Last Admin: 04/24/20 13:38 Dose: 100 mls/hr Documented by: Levofloxacin/Dextrose 750 mg/ (Premix) 150 mls @ 100 mls/hr IV Q48H [facility] Last Admin: 04/30/20 11:40 Dose: 100 mls/hr Documented by: Vancomycin HCl 1 gm/ Sodium (Chloride) 250 mls @ 166.667 mls/hr IV Q24H [facility] Last Admin: 05/01/20 13:26 Dose: 166.667 mls/hr Documented by: Meropenem 1 gm/ Sodium (Chloride) 100 mls @ 200 mls/hr IV Q12H [facility] Last Admin: 05/01/20 04:01 Dose: 200 mls/hr Documented by: Ceftriaxone Sodium 1 gm/ (Sodium Chloride) 50 mls @ 100 mls/hr IV Q24H [facility] Last Admin: 05/04/20 14:41 Dose: 100 mls/hr Documented by: Doxycycline Hyclate 100 mg/ (Sodium Chloride) 100 mls @ 100 mls/hr IV Q12H [facility] Last Admin: 05/07/20 11:57 Dose: 100 mls/hr Documented by: Ceftazidime 1 gm/ Sodium (Chloride) 50 mls @ 100 mls/hr IV Q12H [facility] Last Admin: 05/14/20 22:16 Dose: 100 mls/hr Documented by: Levofloxacin/Dextrose 750 mg/ (Premix) 150 mls @ 100 mls/hr IV Q48H [facility] Last Admin: 05/17/20 17:08 Dose: 100 mls/hr Documented by: Vancomycin HCl 1.4 gm/ Sodium (Chloride) 250 mls @ 150 mls/hr IV ONETIME ONE Stop: 05/07/20 17:39 Last Admin: 05/07/20 15:25 Dose: 150 mls/hr Documented by: Vancomycin HCl 1 gm/ Sodium (Chloride) 250 mls @ 166.667 mls/hr IV Q24H [facility] Last Admin: 05/12/20 16:08 Dose: 166.667 mls/hr Documented by: Potassium Chloride/Dextrose/Sod Cl (D5 1/2 Ns W/ 20 Meq/L Kcl) 1,000 mls @ 50 mls/hr IV ASDIRECTED [facility] Last Admin: 05/18/20 08:39 Dose: 50 mls/hr Documented by: Insulin Glargine (Lantus Solostar) 26 units SUBCUT BEDTIME [facility] Last Admin: 04/11/20 23:35 Dose: Not Given Documented by: Insulin Glargine (Lantus Solostar) 24 units SUBCUT BEDTIME [facility] Last Admin: 04/11/20 22:33 Dose: 24 units Documented by: Insulin Glargine (Lantus Solostar) 24 units SUBCUT BEDTIME [facility] Last Admin: 05/05/20 22:35 Dose: 24 units Documented by: Insulin Glargine (Lantus Solostar) 20 units SUBCUT BEDTIME [facility] Last Admin: 05/15/20 20:49 Dose: 20 unit Documented by: Insulin Glargine (Lantus Solostar) 30 units SUBCUT BEDTIME [facility] Last Admin: 05/16/20 20:50 Dose: 30 units Documented by: Insulin Human Lispro (Humalog) 0 unit SUBCUT QIDACANDBED [facility]; Protocol Last Admin: 05/02/20 17:46 Dose: 2 units Documented by: Insulin Human Lispro (Humalog) 0 unit SUBCUT QIDACANDBED [facility]; Protocol Last Admin: 05/02/20 08:24 Dose: Not Given Documented by: Insulin Human Lispro (Humalog) 0 unit SUBCUT QIDACANDBED [facility]; Protocol Last Admin: 05/16/20 08:07 Dose: 3 units Documented by: Insulin Human Lispro (Humalog) 12 unit SUBCUT ONETIME ONE Stop: 05/13/20 22:17 Last Admin: 05/14/20 00:29 Dose: Not Given Documented by: Insulin Human Lispro (Humalog) 0 unit SUBCUT QIDACANDBED [facility]; Protocol Last Admin: 05/18/20 08:20 Dose: 1 units Documented by: Lactobacillus Rhamnosus (Culturelle) 1 cap PO BID [facility] Last Admin: 05/18/20 08:34 Dose: Not Given Documented by: Lidocaine HCl (Xylocaine 2% Jelly) 0 ml TOP QID PRN PRN Reason: Pain Last Admin: 05/14/20 11:09 Dose: 1 applic Documented by: Lorazepam (Ativan) 0.5 mg IVPUSH Q2H PRN PRN Reason: Anxiety Last Admin: 04/30/20 21:00 Dose: 0.5 mg Documented by: Lorazepam (Ativan) 0.5 mg IVPUSH Q2H PRN PRN Reason: Anxiety Last Admin: 05/18/20 05:07 Dose: 0.5 mg Documented by: Magnesium Hydroxide (Milk Of Magnesia) 30 ml PO DAILY [facility] Last Admin: 04/21/20 11:06 Dose: 30 ml Documented by: Melatonin (Melatonin) 9 mg PO BEDTIME PRN PRN Reason: Insomnia Stop: 06/12/20 23:59 Last Admin: 05/11/20 20:50 Dose: 9 mg Documented by: Morphine Sulfate (Morphine) 2 mg IVPUSH Q2H PRN PRN Reason: Pain/Air Hunger Last Admin: 05/18/20 04:36 Dose: 2 mg Documented by: Morphine Sulfate (Morphine) 15 mg PO Q4H PRN PRN Reason: Pain (moderate 4-6) Morphine Sulfate (Morphine 10 Mg/0.5 Ml Oral Syringe) 10 mg PO Q1H PRN PRN Reason: Pain/Air Hunger Last Admin: 05/19/20 05:49 Dose: 10 mg Documented by: Ondansetron HCl (Zofran) 4 mg IV Q4H PRN PRN Reason: Nausea/Vomiting Oxycodone HCl (Oxycodone) 5 mg PO Q4H PRN PRN Reason: Pain Stop: 06/15/20 23:59 Last Admin: 05/16/20 18:12 Dose: 5 mg Documented by: Polyethylene Glycol (Miralax) 17 gm PO DAILY PRN PRN Reason: Constipation Last Admin: 04/21/20 08:06 Dose: 17 gm Documented by: Polyethylene Glycol (Miralax) 17 gm PO DAILY PRN PRN Reason: Constipation Senna/Docusate Sodium (Senna Plus) 1 tab PO BID [facility] Last Admin: 04/21/20 11:06 Dose: 1 tab Documented by: Sodium Chloride (Saline Flush) 10 ml FLUSH ASDIRECTED PRN PRN Reason: Keep Vein Open Last Admin: 04/15/20 09:45 Dose: 10 ml Documented by: Sodium Chloride ([place] Nasal [place]) 0 ml ABRAHAN Q4H [facility] Last Admin: 05/18/20 08:21 Dose: 1 sprays Documented by: Sodium Polystyrene Sulfonate (Kayexalate) 15 gm PO ONETIME ONE Stop: 04/22/20 10:01 Last Admin: 04/22/20 11:34 Dose: 15 gm Documented by: Tamoxifen Citrate (Nolvadex) 20 mg PO DAILY [facility] Last Admin: 05/05/20 11:09 Dose: Not Given Documented by: Vancomycin HCl (Vancomycin) 1 gm IV .PHARMACY TO DOSE [facility] Stop: 04/30/20 12:30
== END 2020-05-19 12:52 | disposition expired | DRG 177 ==
LOC: JP.ED 15:40 → JP.2SS 18:52 → JP.ICU 04-22 14:20
PROVIDERS: ADMIT Hospitalist; ATTEND Internal Medicine
PROC: XW13325 Transfusion of Convalescent Plasma (Nonautologous) into Peripheral Vein, Percutaneous Approach, New Technology Group 5 (ICD-10-PCS; 2020-04-12)
PROC: 5A0955A Assistance with Respiratory Ventilation, Greater than 96 Consecutive Hours, High Flow/Velocity Cannula (ICD-10-PCS; 2020-04-14)
PROC: 5A09557 Assistance with Respiratory Ventilation, Greater than 96 Consecutive Hours, Continuous Positive Airway Pressure (ICD-10-PCS; 2020-04-15)
PROC: XW033E5 Introduction of Remdesivir Anti-infective into Peripheral Vein, Percutaneous Approach, New Technology Group 5 (ICD-10-PCS; 2020-04-22)
PROC: XW033N5 Introduction of Meropenem-vaborbactam Anti-infective into Peripheral Vein, Percutaneous Approach, New Technology Group 5 (ICD-10-PCS; principal; 2020-04-30)
DX: U07.1 COVID-19 (principal); R53.1 Weakness; J12.89 Other viral pneumonia; L89.153 Pressure ulcer of sacral region, stage 3; J15.9 Unspecified bacterial pneumonia; J96.01 Acute respiratory failure with hypoxia; E11.9 Type 2 diabetes mellitus without complications; N18.4 Chronic kidney disease, stage 4 (severe); I82.432 Acute embolism and thrombosis of left popliteal vein; R04.2 Hemoptysis; Z51.5 Encounter for palliative care; Z66 Do not resuscitate; E11.22 Type 2 diabetes mellitus with diabetic chronic kidney disease; E11.622 Type 2 diabetes mellitus with other skin ulcer; H26.9 Unspecified cataract; F41.9 Anxiety disorder, unspecified; I12.9 Hypertensive chronic kidney disease with stage 1 through stage 4 chronic kidney disease, or unspecified chronic kidney disease; T38.0X5A Adverse effect of glucocorticoids and synthetic analogues, initial encounter; E86.0 Dehydration; Z88.8 Allergy status to other drugs, medicaments and biological substances; Z79.82 Long term (current) use of aspirin; Z79.4 Long term (current) use of insulin; Z79.899 Other long term (current) drug therapy; Z90.49 Acquired absence of other specified parts of digestive tract; Z87.891 Personal history of nicotine dependence; Z99.81 Dependence on supplemental oxygen
CPT/HCPCS: 36415; 36430; 71045; 71045-26; 80048; 80053; 80202; 82728; 82962; 84145; 85025; 85027; 85379; 85610; 85730; 86140; 86900; 86901; 87040; 87070; 87077; 87205; 93970; 94640; 94660; 94667; 94668; 94762; 96374; 97110-GP; 97140-GP; 97162-GP; 97164-GP; 97530-GP; 99222-AI; 99231; 99232; 99233; 99239; 99285; 99285-25; A9270-GY; J0696; J0713; J1100; J1170; J1200; J1650; J1815; J1815-GY; J1940; J1956; J2060; J2185; J2270; J3370; J3480; J3490; J7030; J7050; P9017; U0002